=== PATIENT | female | born 1955 | race African-American/Black ===

== ENCOUNTER 2017-11-10 13:40 | Outpatient (CLI) | payer BC | END 2017-11-10 13:41 | disposition home or self-care (01) | LOC: BICRAD 13:40 | PROVIDERS: ATTEND Family Medicine | DX: M79.641 Pain in right hand (principal); M79.642 Pain in left hand; M19.042 Primary osteoarthritis, left hand; M19.041 Primary osteoarthritis, right hand ==

== ENCOUNTER 2018-05-29 12:28 | Emergency (ER) | payer BC | END 2018-05-29 13:30 | disposition home or self-care (01) | LOC: ERS 12:28 | DX: T45.1X5A Adverse effect of antineoplastic and immunosuppressive drugs, initial encounter (principal); R21 Rash and other nonspecific skin eruption; E11.9 Type 2 diabetes mellitus without complications; I10 Essential (primary) hypertension; K21.9 Gastro-esophageal reflux disease without esophagitis; Z79.899 Other long term (current) drug therapy; Z79.4 Long term (current) use of insulin | CPT/HCPCS: 99282 ==

== ENCOUNTER 2019-01-09 16:05 | Observation (INO) | payer BC ==
[2019-01-09 16:45] LABS: #Basophils 0.1 thou/uL (0.0-0.2); #Eosinphils 0.1 thou/uL (0.0-0.7); #Lymphocytes 1.2 thou/uL (1.20-3.40); #Monocytes 0.9 thou/uL (0.11-0.59); #Neutrophils 6.8 thou/uL (1.40-6.50); %Basophils 0.6 % (0.0-1.0); %Eosinophils 1.4 % (0.0-10.0); %Monocytes 9.7 % (0.0-10.0); %Neutrophils 75.3 % (42.0-75.0); Hemoglobin 9.9 g/dL (12.0-16.0); Mean Corpuscular HGB CONC 31.1 g/dL (32.0-36.0); Mean Corpuscular Hemoglobin 22.8 pg (27.0-31.0); Mean Corpuscular Volume 73.2 fL (78.0-98.0); Mean Platelet Volume 8.7 fL (7.4-10.4); Platelet Count 276 thou/uL (130-400); RBC Distribution Width 14.1 % (11.5-14.5); Red Blood Cell (RBC) Count 4.32 mill/uL (4.20-5.40)
--- NOTE | 2019-01-09 16:49 | RAD ---
PORTABLE CHEST ONE VIEW: 01/09/19 at 4:36 p.m. HISTORY: Hypoglycemia, dizziness. FINDINGS: Comparison made with exam of 03/24/17. The heart size is normal. The lungs are well expanded without focal areas of consolidation, pneumotho races or pleural effusions. IMPRESSION: No radiographic evidence of acute cardiopulmonary process. POS: [facility]
[2019-01-09 17:02] LABS: ALT (SGPT) 7 U/L (8-55); AST (SGOT) 15 U/L (5-34); Albumin 3.6 g/dL (3.4-4.8); Alkaline Phosphatase 51 U/L (40-150); Anion Gap 13 mmol/L (10-20); BUN (Urea Nitrogen) 22 mg/dL (9.8-20.1); Bilirubin, Total 0.2 mg/dL (0.2-1.2); Calc. Creatinine Clearance 0 mL/min (70-130); Calcium 9.9 mg/dL (7.8-10.44); Carbon Dioxide 28 mmol/L (23-31); Chloride 106 mmol/L (98-107); Estimated GFR-MDRD 44; Globulin 4.2 g/dL (2.4-3.5); Potassium 4.2 mmol/L (3.5-5.1); Protein, Total 7.8 g/dL (6.0-8.3); Sodium 143 mmol/L (136-145)
[2019-01-09 17:04] LABS: Glucose 44 mg/dL (80-115)
[2019-01-09] MEDS ORDERED: Aspirin Chewable 81 MG TAB ONE (19:16)
[2019-01-09] MEDS ORDERED: Nitroglycerin 2% Ointment 1 INCH/1 GM Packet ONE (19:16)
[2019-01-09] MEDS ORDERED: Labetalol HCl 100 MG/20 ML VIAL ONE (19:16)
[2019-01-09 20:37] LABS: Bilirubin Negative (Negative); Blood, Urine Trace (Negative); Clarity CLEAR (Clear); Glucose, Urine (Dipstick) 100 mg/dL (Negative); Leukocyte Negative (Negative); Nitrite Negative (Negative); Protein, Urine (Dipstick) > or equal to 300 mg/dL (Neg-Trace); Specific Gravity, Urine 1.025 (1.002-1.036); Urobilinogen 0.2 mg/dL (0.2-1.0); pH, Urine 5.5 (5.0-9.0)
[2019-01-09 20:38] LABS: Bacteria/HPF None Seen HPF (None Seen); Pathc Cast-AUWi Flag 1.76 (0-2.49); RBC/HPF 0-3 HPF (0-3)
[2019-01-09 20:39] LABS: Hyaline Casts/LPF 4-6 HYALINE CAST LPF (0-3 Hyaline)
[2019-01-09 21:46] LABS: Troponin I 0.018 ng/mL (< 0.028)
[2019-01-09] MEDS ORDERED: Ondansetron ODT 4 MG TAB PO PRN (23:09)
[2019-01-09] MEDS ORDERED: Ondansetron PF 4 MG/2 ML Vial IVP PRN (23:09)
[2019-01-09] MEDS ORDERED: Acetaminophen 325 MG TAB PO PRN (23:09)
[2019-01-09] MEDS ORDERED: Acetaminophen 500 MG TAB ONE (23:35)
[2019-01-10 00:31] LABS: Troponin I 0.019 ng/mL (< 0.028)
[2019-01-10] MEDS ORDERED: tiZANidine HCl 4 MG TAB PO PRN (05:02)
[2019-01-10] MEDS ORDERED: Dextrose 5% in Water 1,000 ML IV PRN (05:04)
[2019-01-10] MEDS ORDERED: Dextrose 50% Abboject 50 ML SYRINGE SLOW IVP PRN (05:04)
[2019-01-10] MEDS ORDERED: HumaLOG 300 UNITS/3 ML VIAL SC PRN ×2 (05:04→17:16)
[2019-01-10 05:32] LABS: #Basophils 0.1 thou/uL (0.0-0.2); #Eosinphils 0.1 thou/uL (0.0-0.7); #Monocytes 0.8 thou/uL (0.11-0.59); %Basophils 0.9 % (0.0-1.0); %Eosinophils 1.4 % (0.0-10.0); %Lymphocytes 29.2 % (21.0-51.0); %Monocytes 11.7 % (0.0-10.0); %Neutrophils 56.8 % (42.0-75.0); Hemoglobin 8.6 g/dL (12.0-16.0); Mean Corpuscular HGB CONC 31.7 g/dL (32.0-36.0); Mean Corpuscular Hemoglobin 23.2 pg (27.0-31.0); Mean Corpuscular Volume 73.2 fL (78.0-98.0); Platelet Count 229 thou/uL (130-400); RBC Distribution Width 14.2 % (11.5-14.5)
[2019-01-10 05:58] LABS: Anion Gap 14 mmol/L (10-20); BUN (Urea Nitrogen) 20 mg/dL (9.8-20.1); Calc. Creatinine Clearance 49 mL/min (70-130); Carbon Dioxide 24 mmol/L (23-31); Chloride 105 mmol/L (98-107); Estimated GFR-MDRD 49; Glucose 147 mg/dL (80-115); Potassium 3.6 mmol/L (3.5-5.1); Sodium 139 mmol/L (136-145)
--- NOTE | 2019-01-10 07:06 | HP ---
PRIMARY CARE DOCTOR: Not reported. CODE STATUS: Full code. TIME OF EVALUATION: 9 p.m. CHIEF COMPLAINT: Hypoglycemia. HISTORY OF PRESENT ILLNESS: This is a 63-year-old female patient with past medical history of diabetes on insulin, hypertension, GERD, came to the hospital after having an episode of hyponatremia. The patient reported that she became diaphoretic, associated with nausea with no clear triggers, no alleviating factors. She checked the blood sugar, it was around 40. She reported that she had been taking her insulin and has been eating properly. Also associated with chest pain, reported as heaviness 5/10, symptoms were moderate. REVIEW OF SYSTEMS: CONSTITUTIONAL: No fever, chills or generalized weakness. Respiratory: No cough, sputum production, shortness of breath. CARDIOVASCULAR: Chest pain, no palpitation. GASTROINTESTINAL: The patient has nausea. No vomiting, diarrhea, or abdominal pain. FITNESS ATTENDANT: No dizziness, headache or feeling lightheaded. GENITOURINARY: No burning on urination. EXTREMITIES: No leg swelling. All other systems were reviewed and negative except for the findings mentioned above. PAST MEDICAL HISTORY: Positive for the findings mentioned in the HPI. PAST SURGICAL HISTORY: Positive for hysterectomy, cataract removal on the left. PSYCHIATRIC HISTORY: No previous psych history. FAMILY HISTORY: Reviewed and non contributory for current presentation. SOCIAL HISTORY: The patient drinks socially every week. No drug use. No smoking history. KNOWN ALLERGIES: Sulfa and codeine. REPORTED MEDICATIONS: 1. Meloxicam. 2. Metformin. 3. Amlodipine. 4. Metoprolol. 5. Humalog. 6. Atorvastatin. 7. Lisinopril. 8. Omeprazole. 9. Leflunomide. 10. Tizanidine. PHYSICAL EXAMINATION: VITAL SIGNS: On presentation, blood pressure 170/80, heart rate 84, respiratory rate was 16, temperature 98.5, pain 0/10, oxygen saturation was 96%. GENERAL APPEARANCE: The patient is alert, oriented, not in acute distress. HEENT: Eyes normal conjunctivae. ENT: Moist oral mucosa. Anicteric. NECK: No JVD. RESPIRATORY: Bilateral air entry. No rales. No wheezes. Symmetric expansion. CARDIOVASCULAR: Normal rate, regular rhythm. No murmurs. No gallop. Bilateral leg edema. ABDOMEN: Soft, normal bowel sounds. MUSCULOSKELETAL: Baseline range of motion and strength. No tenderness. SKIN: Warm, intact, no pallor, no rash. No redness. Peripheral pulses are present. Capillary refill seems to be intact. NEUROLOGIC: No evidence of any new focal weakness. Baseline speech. Cranial nerves seems to be intact. PSYCHIATRIC: The patient has good mood. No anxiety. Optimal judgment. IMAGING: EKG was reviewed, the patient has normal sinus rhythm, nonspecific Q- wave abnormalities, ventricular rate 84, AL 150, QRS 66, QT corrected 387. Chest x- ray, no radiographic areas of acute cardiopulmonary process. LABORATORY DATA: Reviewed, white count 9.0, hemoglobin 9.9. In previous admission, the hemoglobin was 12.5, it was in 2017, platelet count 276. Sodium 143, potassium 4.2 chloride 106, carbon dioxide 28, anion gap 13, BUN 22, creatinine 1.44, GFR 44. Previous creatinine from 2018 was 1.64, it is about the same level. Glucose 145 , 102, 240, 205, calcium 9.9, bilirubin 0.2, AST 15, ALT 7, alkaline phosphatase is 51. Troponin was negative x3. Urine was positive for proteinuria and glucosuria. ASSESSMENT AND PLAN: The patient will be placed in the hospital for following medical problems: 1. Chest pain, rule out acute coronary syndrome. The patient has some chest tightness associated with the hypoglycemia, we will trend troponins. If everything is negative, the patient would benefit from a stress test in the morning. 2. Hypoglycemia, unclear etiology, we will reconcile home medications, place the patient on a sliding scale. One of the reason this might happening is because patient might need low dose of anti-hypoglycemic agents given. 3. Kidney failure. Her home medication will need to be reconciled prior to discharge. 4. Hyperlipidemia. Low-cholesterol diet is advised, reconcile home medications. 5. Uncontrolled hypertension, systolic blood pressure 170. We will reconcile home medications and adjust as needed. 6. History of gastroesophageal reflux disease, reconcile home medications. Adjust treatment as needed. 7. Deep venous thrombosis prophylaxis. Job ID: [id number] [facility]
[2019-01-10] MEDS ORDERED: cloNIDine 0.1 MG TAB PO PRN (07:57)
[2019-01-10] MEDS ORDERED: hydrALAZINE 20 MG/ML VIAL SLOW IVP PRN (07:57)
[2019-01-10] MEDS: Atorvastatin Calcium 40 MG TAB PO SCH (08:30)
[2019-01-10] MEDS: Enoxaparin Sodium 30 MG/0.3 ML SYRINGE SC SCH (08:30)
[2019-01-10] MEDS: Amlodipine 10 MG TAB PO SCH (08:31)
[2019-01-10] MEDS: Aspirin 325 mg Enteric Coated Tablet PO SCH (08:31)
[2019-01-10] MEDS: Leflunomide 10 mg Tablet PO SCH (08:32)
[2019-01-10] MEDS: Metoprolol Tartrate 50 MG TAB PO SCH ×3 (08:33→21:18)
[2019-01-10] MEDS: Sodium Chloride 0.9% 1,000 ML IV SCH (08:40)
[2019-01-10] MEDS ORDERED: [UNRECOGNIZED DRUG - MIXTURE] PO SCH (09:00)
[2019-01-10] MEDS ORDERED: Meloxicam 15 MG TAB PO SCH (09:00)
[2019-01-10] MEDS ORDERED: Metoprolol Tartrate 50 MG TAB PO SCH (09:00)
[2019-01-10] MEDS ORDERED: ISOVUE-370 76%-LOCM 1 ML ONE (13:17)
--- NOTE | 2019-01-10 15:13 | PRG ---
DATE OF SERVICE: 01/10/2019 SUBJECTIVE: Ms. Wendy Roberts is a 63-year-old female with past medical history significant for type 2 diabetes mellitus, hypertension, and chronic kidney disease, who presented to the hospital with complaints of chest discomfort and shortness of breath. The patient has remained short of breath this morning. She was unable to complete the full portion of her Cardiolite stress test secondary to shortness of breath. She describes her chest discomfort as a "full" feeling. She has no nausea at this time. She has no lightheadedness or palpitations. OBJECTIVE: VITAL SIGNS: Blood pressure 180/84, pulse 93, O2 saturation is 95% on room air, temperature is 98.2. GENERAL: The patient is a moderately obese female, sitting up in bed, in no acute distress. HEENT: Head is atraumatic and normocephalic. Mucous membranes are moist. Extraocular movements intact. NECK: Supple. No lymphadenopathy. No JVD. Trachea is midline. CV: S1 and S2. Regular rate and rhythm. No appreciable murmurs, rubs, or gallops. LUNGS: Regular respiratory rate and pattern. Clear to auscultation bilaterally. ABDOMEN: Soft. Positive bowel sounds. Nontender. EXTREMITIES: +2 DP pulses bilaterally. No edema. SKIN: Warm and dry. No obvious rashes. NEUROLOGIC: Cranial nerves 2 through 12 are intact. The patient is nonfocal. LABORATORY DATA: Hemoglobin 8.6, hematocrit 27, and platelet is 229. D-dimer 0.88. Sodium 139, potassium 3.6, chloride 105, and creatinine 1.31, which is down from 1.44. BNP 47.2. ASSESSMENT: 1. Chest discomfort and shortness of breath, which certainly could be an anginal equivalent, although given recently drawn elevated D-dimer, pulmonary embolism is also in the differential. 2. Indeterminate troponin. 3. Type 2 diabetes mellitus. 4. Uncontrolled hypertension. 5. Anemia, hemoglobin 8.9, looking back, her hemoglobin was 12.7 in 2018, fecal occult done today was negative, her anemia may be secondary to chronic kidney disease. 6. Acute on chronic renal insufficiency, improving. 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 PLAN: Given the patient's elevated D-dimer, we will also have to pursue ruling out a pulmonary embolism, CTA is now pending. She will have the 2nd set of stress images tomorrow. At this point, her workup is ongoing, and further recommendations will be based on hospital course and findings of pending the testings. Regarding hypertension, will add scheduled hydralazine along with her B skyler and CCB. Job ID: [id number] [facility]
[2019-01-10] MEDS: hydrALAZINE 25 MG TAB PO SCH ×2 (16:19→21:18)
--- NOTE | 2019-01-10 17:14 | CT ---
CTA CHEST: Technique: Multiple axial tomograms were obtained through chest following angio protocol with multipl marcelo reconstructions and 3D post processing. Indications: Shortness of breath, elevated D-Dimer. FINDINGS: The pulmonary arteries show adequate opacification. No evidence of pulmonary embolus identified. The lung boswell are clear. No infiltrate. Thoracic aorta is unremarkable. No evidence of dissection. Mediastinum unremarkable. Images through the upper abdomen unremarkable. IMPRESSION: 1. No evidence of pulmonary embolus. 2. No acute lung process. POS: [facility]
[2019-01-11] MEDS: hydrALAZINE 25 MG TAB PO SCH (05:05)
[2019-01-11] MEDS: Amlodipine 10 MG TAB PO SCH (05:05)
[2019-01-11] MEDS: Sodium Chloride 0.9% 1,000 ML IV SCH (05:08)
[2019-01-11 05:35] LABS: Anion Gap 12 mmol/L (10-20); BUN (Urea Nitrogen) 16 mg/dL (9.8-20.1); Calc. Creatinine Clearance 49 mL/min (70-130); Calcium 9.2 mg/dL (7.8-10.44); Carbon Dioxide 27 mmol/L (23-31); Chloride 103 mmol/L (98-107); Estimated GFR-MDRD 49; Glucose 188 mg/dL (80-115); Potassium 3.7 mmol/L (3.5-5.1); Sodium 138 mmol/L (136-145)
[2019-01-11 05:59] LABS: #Basophils 0.1 thou/uL (0.0-0.2); #Eosinphils 0.1 thou/uL (0.0-0.7); #Lymphocytes 1.6 thou/uL (1.20-3.40); #Monocytes 0.7 thou/uL (0.11-0.59); #Neutrophils 3.6 thou/uL (1.40-6.50); %Basophils 1.1 % (0.0-1.0); %Eosinophils 1.9 % (0.0-10.0); %Lymphocytes 26.8 % (21.0-51.0); %Monocytes 11.7 % (0.0-10.0); %Neutrophils 58.6 % (42.0-75.0); Hemoglobin 9.1 g/dL (12.0-16.0); MDiff Complete? YES; Mean Corpuscular HGB CONC 31.8 g/dL (32.0-36.0); Mean Corpuscular Hemoglobin 23.2 pg (27.0-31.0); Ovalocytes SLIGHT = 2-5 cells (100X) (0-1/hpf); Platelet Count 239 thou/uL (130-400); RBC Distribution Width 14.1 % (11.5-14.5); Red Blood Cell (RBC) Count 3.92 mill/uL (4.20-5.40); White Blood Cell (WBC) Count 6.1 thou/uL (4.8-10.8)
[2019-01-11] MEDS ORDERED: Regadenoson 0.4 MG/5 ML SYRINGE ONE (09:48)
--- NOTE | 2019-01-11 11:13 | NM ---
EXAM: CARDIAC SPECT HISTORY: Chest pain TECHNIQUE: A myocardial perfusion scan was performed using the single isotope 1 day protocol with shari hnetium 99m sestamibi. [10 mCi] was injected intravenously for the rest exam followed by 32 mCifor the stress study. Pharmacologic stress with Lexiscan was monitored and interpreted by Stacy Villagomez, nurse practitioner FINDINGS: Homogeneous tracer distribution is seen in the myocardial segments on stress and rest image s without fixed or reversible defects. Gated SPECT LVEF: 80% Wall motion exam: Normal IMPRESSION: Normal myocardial perfusion scan
[2019-01-11] MEDS: Leflunomide 10 mg Tablet PO SCH (11:34)
[2019-01-11] MEDS: Aspirin 325 mg Enteric Coated Tablet PO SCH (11:34)
[2019-01-11] MEDS: Atorvastatin Calcium 40 MG TAB PO SCH (11:34)
[2019-01-11] MEDS: Enoxaparin Sodium 30 MG/0.3 ML SYRINGE SC SCH (11:34)
[2019-01-11] MEDS: Metoprolol Tartrate 50 MG TAB PO SCH (11:35)
[2019-01-11 12:18] LABS: Iron 43 ug/dL (50-170); Iron Binding Capacity, Total 286 mcg/dL (265-497)
[2019-01-11 12:27] VITALS: TEMP 98.1
[2019-01-11 12:53] LABS: Folate (Folic Acid) 16.7 ng/mL (7.0-31.4)
[2019-01-11 13:17] VITALS: BP 167/75
== END 2019-01-11 14:24 | disposition home or self-care (01) ==
LOC: ERS 16:05 → 2SW 21:58
PROVIDERS: ADMIT Hospitalist; ATTEND Hospitalist
DX: E11.649 Type 2 diabetes mellitus with hypoglycemia without coma (principal); R07.89 Other chest pain; R06.02 Shortness of breath; K21.9 Gastro-esophageal reflux disease without esophagitis; E87.1 Hypo-osmolality and hyponatremia; E78.5 Hyperlipidemia, unspecified; I12.9 Hypertensive chronic kidney disease with stage 1 through stage 4 chronic kidney disease, or unspecified chronic kidney disease; E11.22 Type 2 diabetes mellitus with diabetic chronic kidney disease; N18.9 Chronic kidney disease, unspecified; N17.9 Acute kidney failure, unspecified; D63.1 Anemia in chronic kidney disease; Z79.1 Long term (current) use of non-steroidal anti-inflammatories (NSAID); Z79.4 Long term (current) use of insulin; Z79.899 Other long term (current) drug therapy; Z88.2 Allergy status to sulfonamides; Z88.5 Allergy status to narcotic agent
CPT/HCPCS: 36415; 36416; 71045; 71275; 78452; 80048; 80053; 81003; 81015; 82274; 82607; 82746; 83540; 83550; 83880; 84484; 85025; 85379; 93005; 93017; 93306; 96361; 96372; 96374; 96375; A9500; G0378; J0360; J1650; J2785; Q9966

== ENCOUNTER 2019-02-24 07:12 | Outpatient (CLI) | payer BC ==
--- NOTE | 2019-02-24 08:03 | ULT ---
ULTRASOUND RETROPERITONEUM COMPLETE: (RENAL) DATE: 02/24/19 HISTORY: Chronic kidney disease Stage III, N18.3, in 63-year-old female. FINDINGS: The right kidney measures 10.5 x 5 x 5 cm. The left kidney measures 10.5 x 6 x 6 cm. Both kidneys h ave normal cortical thickness and normal cortical echogenicity. There is no hydronephrosis. Cursory images of the urinary bladder demonstrate no gross abnormality. IMPRESSION: Normal. jn [] POS: [facility]
== END 2019-02-24 07:13 | disposition home or self-care (01) ==
LOC: BICULT 07:12
PROVIDERS: ATTEND Internal Medicine Nephrology
DX: N18.3 Chronic kidney disease, stage 3 (moderate) (principal)
CPT/HCPCS: 76770

== ENCOUNTER 2019-06-14 11:24 | Emergency (ER) | payer BC ==
--- NOTE | 2019-06-14 12:01 | RAD ---
EXAM: Two views chest PROVIDED CLINICAL HISTORY: Chest pain COMPARISON: 01/09/2019 FINDINGS: Cardiac and mediastinal silhouette appears within normal limits. Lungs appear free of significant opa city. No pleural fluid or pneumothorax apparent. Bibasilar subsegmental atelectatic changes are seen. IMPRESSION: No evidence for an acute cardiopulmonary process.
[2019-06-14 12:18] LABS: #Lymphocytes 1.3 thou/uL (1.20-3.40); #Monocytes 1.2 thou/uL (0.11-0.59); %Basophils 0.4 % (0.0-1.0); %Eosinophils 0.3 % (0.0-10.0); %Lymphocytes 12.6 % (21.0-51.0); %Monocytes 11.5 % (0.0-10.0); %Neutrophils 75.2 % (42.0-75.0); Hemoglobin 9.4 g/dL (12.0-16.0); Mean Corpuscular HGB CONC 33.1 g/dL (32.0-36.0); Mean Corpuscular Hemoglobin 23.4 pg (27.0-31.0); Mean Corpuscular Volume 70.7 fL (78.0-98.0); Mean Platelet Volume 7.9 fL (7.4-10.4); Platelet Count 307 thou/uL (130-400); RBC Distribution Width 14.1 % (11.5-14.5); Red Blood Cell (RBC) Count 4.01 mill/uL (4.20-5.40); White Blood Cell (WBC) Count 10.7 thou/uL (4.8-10.8)
[2019-06-14 12:42] LABS: Hypochromia SLIGHT = 6-15 cells (100X) (0-5/hpf); MDiff Complete? YES; Microcytosis MODERATE=15-30 cells (100X) (0-5/hpf); Ovalocytes SLIGHT = 2-5 cells (100X) (0-1/hpf); Platelet Morphology Comment Appears Adequate; Polychromasia SLIGHT = 2-3 cells (100X) (0-2/hpf)
[2019-06-14 12:48] LABS: ALT (SGPT) 9 U/L (8-55); AST (SGOT) 14 U/L (5-34); Albumin 3.6 g/dL (3.4-4.8); Alkaline Phosphatase 70 U/L (40-110); Anion Gap 17 mmol/L (10-20); BUN (Urea Nitrogen) 20 mg/dL (9.8-20.1); Bilirubin, Total 0.3 mg/dL (0.2-1.2); Calc. Creatinine Clearance 0 mL/min (70-130); Calcium 7.7 mg/dL (7.8-10.44); Carbon Dioxide 22 mmol/L (23-31); Chloride 102 mmol/L (98-107); Estimated GFR-MDRD 29; Globulin 3.9 g/dL (2.4-3.5); Glucose 186 mg/dL (80-115); Potassium 3.8 mmol/L (3.5-5.1); Protein, Total 7.5 g/dL (6.0-8.3); Sodium 137 mmol/L (136-145)
[2019-06-14] MEDS ORDERED: Ondansetron PF 4 MG/2 ML Vial ONE ×2 (14:00→14:01)
[2019-06-14] MEDS ORDERED: Morphine 4 MG/ML VIAL ONE (14:01)
[2019-06-14 15:23] LABS: Bacteria/HPF None Seen HPF (None Seen); Bilirubin Negative (Negative); Blood, Urine Trace (Negative); Clarity Clear (Clear); Glucose, Urine (Dipstick) 500 mg/dL (Negative); Leukocyte Negative Leu/uL (Negative); Nitrite Negative (Negative); Protein, Urine (Dipstick) Greater than 600 mg/dL (Neg-Trace); Squamous Epithelial 0-3 HPF (0-3); Urobilinogen Normal mg/dL (Less than 2); WBC/HPF 0-3 HPF (0-3)
[2019-06-14] MEDS ORDERED: Diazepam 5 MG TAB ONE (15:57)
== END 2019-06-14 17:03 | disposition home or self-care (01) ==
LOC: ERS 11:24
DX: M54.6 Pain in thoracic spine (principal); E11.9 Type 2 diabetes mellitus without complications; I10 Essential (primary) hypertension; K21.9 Gastro-esophageal reflux disease without esophagitis; Z79.899 Other long term (current) drug therapy; Z79.4 Long term (current) use of insulin
CPT/HCPCS: 36415; 71046; 80053; 81003; 81015; 82728; 83540; 83550; 84484; 85025; 93005; 96374; 96375; J2270; J2405; J7620

== ENCOUNTER 2019-07-05 19:29 | Inpatient (IN) | payer BC ==
--- NOTE | 2019-07-05 20:17 | CT ---
CT Stone Protocol 07/05/2019 7:41 PM HISTORY: Right flank pain and hematuria. COMPARISON: None. Technique: Multiple contiguous axial CT images are obtained through the abdomen and pelvis without IV contrast. Coronal reformats are provided. FINDINGS: This examination is limited for the evaluation of solid organs and vascular structures due to the lac k of intravenous contrast. Lower Chest: Bibasilar atelectasis is present. Abdomen: Liver: Grossly normal nonenhanced CT appearance. Gallbladder: Within normal limits for CT imaging. Pancreas: Grossly normal nonenhanced CT appearance Spleen: Grossly normal nonenhanced CT appearance. Adrenals: Grossly normal nonenhanced CT appearance. Kidneys: No renal calculi are visualized, and there is no evidence of hydronephrosis. Ureters: No ureteral calculus is seen.. Pelvis: Urinary bladder: Mostly decompressed but otherwise grossly within normal limits. Reproductive Organs: Evidence of hysterectomy. Lymph Nodes: No enlarged lymph nodes. Bowel: Colonic diverticulosis is present. Loops of small bowel are normal in caliber. Appendix: A small appendicolith is seen at the origin of the appendix, but the appendix is normal in caliber. Peritoneum: No free fluid, free air, or fluid collection. Retroperitoneum: within normal limits. Vessels: Vascular calcifications are seen in the abdominal aorta and involving the iliac arteries as well as visualized femoral arteries.. Abdominal Wall: Small fat-containing umbilical hernia is noted. Bones: Bilateral pars defects are present at L5 with grade 1 anterolisthesis of L5 on S1. Degenerativ e changes are seen at the lumbosacral junction. IMPRESSION: 1. No renal or ureteral calculi are seen bilaterally. 2. Spondylolisthesis lumbosacral junction. 3. Colonic diverticulosis. 4. Hysterectomy. 5. Small appendicolith, but there is no CT evidence of appendicitis.
[2019-07-05 20:20] LABS: #Basophils 0.1 thou/uL (0.0-0.2); #Eosinphils 0.1 thou/uL (0.0-0.7); #Lymphocytes 1.6 thou/uL (1.20-3.40); #Monocytes 1.1 thou/uL (0.11-0.59); #Neutrophils 7.9 thou/uL (1.40-6.50); %Basophils 0.6 % (0.0-1.0); %Eosinophils 1.1 % (0.0-10.0); %Lymphocytes 15.1 % (21.0-51.0); %Monocytes 10.1 % (0.0-10.0); %Neutrophils 73.1 % (42.0-75.0); Hemoglobin 7.8 g/dL (12.0-16.0); Mean Corpuscular HGB CONC 32.1 g/dL (32.0-36.0); Mean Corpuscular Hemoglobin 23.2 pg (27.0-31.0); Mean Corpuscular Volume 72.2 fL (78.0-98.0); Mean Platelet Volume 7.8 fL (7.4-10.4); Platelet Count 305 thou/uL (130-400); RBC Distribution Width 14.1 % (11.5-14.5); Red Blood Cell (RBC) Count 3.36 mill/uL (4.20-5.40); White Blood Cell (WBC) Count 10.8 thou/uL (4.8-10.8)
[2019-07-05 20:50] LABS: ALT (SGPT) 12 U/L (8-55); AST (SGOT) 18 U/L (5-34); Albumin 2.9 g/dL (3.4-4.8); Alkaline Phosphatase 74 U/L (40-110); Anion Gap 15 mmol/L (10-20); BUN (Urea Nitrogen) 27 mg/dL (9.8-20.1); Bilirubin, Total 0.2 mg/dL (0.2-1.2); Calc. Creatinine Clearance 0 mL/min (70-130); Calcium 7.7 mg/dL (7.8-10.44); Carbon Dioxide 26 mmol/L (23-31); Chloride 101 mmol/L (98-107); Estimated GFR-MDRD 18; Glucose 286 mg/dL (80-115); Potassium 3.9 mmol/L (3.5-5.1); Protein, Total 6.9 g/dL (6.0-8.3); Sodium 138 mmol/L (136-145)
[2019-07-05] MEDS ORDERED: Sodium Chloride 0.9% 1,000 ML IV SCH (23:45)
[2019-07-05 23:57] LABS: Bacteria/HPF None Seen HPF (None Seen); Bilirubin Negative (Negative); Blood, Urine 1+ (Negative); Clarity Clear (Clear); Glucose, Urine (Dipstick) Greater than 1000 mg/dL (Negative); Leukocyte Negative Leu/uL (Negative); Nitrite Negative (Negative); Protein, Urine (Dipstick) 300 mg/dL (Neg-Trace); RBC/HPF 0-3 HPF (0-3); Squamous Epithelial 0-3 HPF (0-3); Urobilinogen Normal mg/dL (Less than 2); WBC/HPF 0-3 HPF (0-3)
[2019-07-05 23:58] VITALS: BMI 29.7
[2019-07-06] MEDS: Acetaminophen/Codeine 30-300mg Tablet PO PRN (05:23)
[2019-07-06] MEDS ORDERED: Dextrose 50% Abboject 50 ML SYRINGE SLOW IVP PRN (05:50)
[2019-07-06] MEDS ORDERED: HumaLOG 300 UNITS/3 ML VIAL SC PRN (05:50)
[2019-07-06] MEDS ORDERED: Dextrose 5% in Water 1,000 ML IV PRN (05:50)
[2019-07-06] MEDS: HumaLOG 300 UNITS/3 ML VIAL SC PRN ×3 (06:01→18:23)
[2019-07-06 06:07] LABS: #Eosinphils 0.2 thou/uL (0.0-0.7); #Lymphocytes 1.7 thou/uL (1.20-3.40); #Monocytes 1.1 thou/uL (0.11-0.59); #Neutrophils 6.6 thou/uL (1.40-6.50); %Basophils 0.5 % (0.0-1.0); %Eosinophils 1.6 % (0.0-10.0); %Lymphocytes 17.4 % (21.0-51.0); %Monocytes 11.6 % (0.0-10.0); Hemoglobin 9.6 g/dL (12.0-16.0); Mean Corpuscular HGB CONC 30.5 g/dL (32.0-36.0); Mean Corpuscular Hemoglobin 23.2 pg (27.0-31.0); Mean Corpuscular Volume 76.3 fL (78.0-98.0); Mean Platelet Volume 8.1 fL (7.4-10.4); Platelet Count 331 thou/uL (130-400); RBC Distribution Width 16.7 % (11.5-14.5); Red Blood Cell (RBC) Count 4.12 mill/uL (4.20-5.40); White Blood Cell (WBC) Count 9.6 thou/uL (4.8-10.8)
[2019-07-06 06:26] LABS: Anion Gap 17 mmol/L (10-20); BUN (Urea Nitrogen) 22 mg/dL (9.8-20.1); Calc. Creatinine Clearance 24 mL/min (70-130); Calcium 7.6 mg/dL (7.8-10.44); Carbon Dioxide 23 mmol/L (23-31); Chloride 103 mmol/L (98-107); Estimated GFR-MDRD 22; Glucose 280 mg/dL (80-115); Potassium 3.7 mmol/L (3.5-5.1); Sodium 139 mmol/L (136-145)
[2019-07-06 08:34] LABS: Phosphorus 2.7 mg/dL (2.3-4.7)
--- NOTE | 2019-07-06 10:58 | CON ---
DATE OF CONSULTATION: REASON FOR CONSULT: Acute renal failure. HISTORY OF PRESENT ILLNESS: This is a very pleasant presented to the hospital for flank pain. The patient was noted to have a creatinine of on hydration. The patient's last baseline creatinine was anywhere from 1.4 to 1.8. The patient at this time denies any nausea, vomiting, or chest pain. The patient also had a CAT scan of the abdomen and pelvis done in the emergency room, which did not show any hydronephrosis. PAST MEDICAL HISTORY: Hypertension, diabetes mellitus, GERD, anemia, transfusion, hysterectomy, and cataract removal. PAST SURGICAL HISTORY: Significant for cataract surgery. SOCIAL HISTORY: No alcohol or drug use. FAMILY HISTORY: Negative for ESRD. ALLERGIES: REVIEWED. HOME MEDICATIONS: List reviewed. HOSPITAL MEDICATIONS: List reviewed. REVIEW OF SYSTEMS: Fifteen-point review of systems was performed, negative, except for positives noted above. GENERAL: HEAD: NECK: No swelling or lumps. NOSE: No epistaxis or discharge. EYES: No diplopia or pain. 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 NEUROPSYCHIATIC SYSTEMS: No suicidal ideation. No ideation. SKIN: Denies any rash or ulcer. CONSTITUTIONAL: No fever or chills. PHYSICAL EXAMINATION: CONSTITUTIONAL: The patient is awake and alert. VITAL SIGNS: Pulse 77, breathing 16, and blood pressure 152/75. GENERAL APPEARANCE AND MENTAL STATUS: Fair. HEAD/NECK: Normocephalic. Atraumatic. EYES: EOMI. No deformity. EARS: Clear. No ulcers. NOSE: Intact. No lesions. MOUTH: Clear. No discharge. THROAT: Clear. No exudate. LUNGS: Clear. No crackles. CARDIAC: S1, S2. No rub. ABDOMEN: Benign. Bowel sounds positive. GENITALIA/RECTUM: Hodges absent. BACK/EXTREMITIES: Edema 0+. NEUROLOGICAL: Alert and motor intact. SKIN: LYMPHATICS: LABORATORY DATA: Labs show creatinine 2.6. ASSESSMENT AND PLAN: Acute kidney injury due to acute tubular necrosis and decreased effective arterial blood volume. No indication for dialysis. Hypertension, stable. Anemia, stable. Proteinuria, would recommend getting a SPEP and UPEP. We would also check hemoglobin. No indication for dialysis at this time. Continue gentle hydration. Job ID: [id number]
[2019-07-06] MEDS ORDERED: Acetaminophen 325 MG TAB PO PRN (11:37)
[2019-07-06] MEDS ORDERED: Senokot S 8.6-50 MG TAB PO PRN (11:37)
[2019-07-06] MEDS: Sodium Chloride 0.9% 1,000 ML IV SCH (12:40)
--- NOTE | 2019-07-06 13:18 | HP ---
PRIMARY CARE PHYSICIAN: Dr. Rivera. CHIEF COMPLAINT: Flank pain. HISTORY OF PRESENT ILLNESS: Ms. Wendy Roberts is a 64-year-old female, who reported to the emergency room on 07/05/2019 for evaluation of flank pain and hematuria. The patient reports that she went to see her PCP, Dr. Rivera at [facility], had a urinalysis done and shown to have some hematuria and some urine hesitancy. Dr. Rivera scheduled an MRI and told patient if the pain got worse or she continued to have problems urinating, to be seen in the emergency room. So, she came to the emergency room last night for evaluation. Past medical history pertinent for diabetes, hypertension, GERD, anemia with iron transfusions, last 1 in May. Abdomen and pelvis CT was performed, showed no renal or urethral calculi. Spondylolisthesis of the lumbosacral junction, colonic diverticulosis, hysterectomy, a small appendicolith, but no evidence of appendicitis. Hemoglobin was 7.8, hematocrit 24.3, and platelet count 305. Her creatinine was 3.16, BUN 27, estimated GFR 18, calcium is also low at 7.7. ER doctor ordered type and screen and transfused 1 unit of packed red blood cells. This morning, hemoglobin is back up to 9.6, hematocrit 31.4, platelets at 331. The patient reports that she feels better. She was admitted for observation for symptomatic anemia, acute on chronic kidney disease. Dr. Ortiz was consulted from the ER. REVIEW OF SYSTEMS: The patient reports right-sided back pain that wraps around to the front. Reports urinary hesitancy. Denies fever or chills. Denies any trauma or injury. Reports some increased fatigue. All other systems reviewed and are negative unless mentioned in the HPI. PAST MEDICAL HISTORY: Diabetes type 2, hypertension, GERD, anemia requiring iron transfusions. PAST SURGICAL HISTORY: Hysterectomy and cataract removed on the left. PSYCHIATRIC HISTORY: None. SOCIAL HISTORY: Drinks alcohol socially. Denies any drug use. Has no smoking history. KNOWN ALLERGIES: Codeine and sulfa. CURRENT MEDICATIONS: 1. Tylenol with codeine 1 tablet q.12 hours as needed. 2. Norvasc 10 mg p.o. daily. 3. Lipitor 40 mg p.o. at bedtime. 4. Fluconazole 200 mg p.o. daily. 5. Apresoline 10 mg p.o. t.i.d. 6. Insulin lispro 25 units subcutaneous at bedtime also 40 units subcutaneous q.a.m. 7. Leflunomide 20 mg p.o. daily. 8. Losartan 25 mg p.o. daily. 9. Metformin 1000 mg p.o. b.i.d. 10. Lopressor 50 mg p.o. daily. 11. Prilosec 20 mg p.o. daily. 12. Zofran 4 mg p.o. q.8 hours as needed. 13. Zanaflex 4 mg p.o. q.8 hours as needed. PHYSICAL EXAMINATION: VITAL SIGNS: Temperature is 97.5, pulse is 77, respirations are 18, pO2 saturations are 98% on room air, and blood pressure 162/71. CONSTITUTIONAL: The patient appears nontoxic. She is alert and oriented to person, place, and time. HEENT: Head is atraumatic and normocephalic. Eyes, pupils are equally round and reactive to light. Conjunctiva is pale. ENT; mouth exam is normal. NECK: Normal range of motion. Trachea is midline. RESPIRATORY: Chest; breath sounds are clear. Chest movement is symmetrical. CARDIOVASCULAR: Regular heart rate and rhythm. Heart sounds are normal. ABDOMEN: Nontender to palpation. Bowel sounds are heard. BACK: Normal range of motion. No tenderness. EXTREMITIES: Upper extremities, motor strength is normal. Sensation is intact. Lower extremities, normal range of motion. Motor strength is normal. No edema is noted. NEURO: The patient is oriented to person, place, and time. Speech is normal. SKIN: Warm, dry, pale. PSYCHIATRIC: Has a normal affect. ASSESSMENT AND PLAN: 1. Symptomatic anemia. The patient's hemoglobin has improved to baseline at 9.6 this morning after 1 unit of packed red blood cells. We will order iron studies, ferritin, recheck hemoglobin in the morning. The patient does report that [facility]. 2. Acute on chronic renal disease, gentle hydration. Dr. Ortiz has been consulted. We will stop any nephrotoxic drugs for now. Recheck comprehensive metabolic panel in the a.m. 3. Diabetes mellitus. We will start home medication a.c. and at bedtime, Accu-Cheks, sliding scale as needed. We will restart her home insulin doses. 4. Hypertension, restart home medications. 5. Sciatica. The patient has Tylenol No. 3 and Zanaflex. We will restart these as needed. 6. Hyperlipidemia. We will restart Lipitor. 7. Gastrointestinal and deep venous thrombosis prophylaxis has been started. 8. Hospital course dependent on clinical findings. Job ID: [id number]
[2019-07-06] MEDS: hydrALAZINE 10 MG TAB PO SCH ×2 (16:39→20:47)
[2019-07-06] MEDS: HumuLIN 70/30 (300 UNITS/3 ML VIAL) SC SCH (20:47)
[2019-07-06] MEDS ORDERED: Prevnar 13-Val Conj/PF 0.5 ML SYRINGE IM ONE (21:00)
[2019-07-06] MEDS ORDERED: FLU VACC TS2019-20(65YR UP)/PF 180 MCG/0.5 ML SYRINGE IM ONE (21:00)
[2019-07-06] MEDS ORDERED: Famotidine 20 MG TAB PO SCH (21:00)
[2019-07-07] MEDS: Sodium Chloride 0.9% 1,000 ML IV SCH ×2 (03:37→14:43)
[2019-07-07 07:28] LABS: #Eosinphils 0.1 thou/uL (0.0-0.7); #Lymphocytes 1.2 thou/uL (1.20-3.40); #Monocytes 0.9 thou/uL (0.11-0.59); #Neutrophils 7.4 thou/uL (1.40-6.50); %Basophils 0.5 % (0.0-1.0); %Lymphocytes 12.2 % (21.0-51.0); %Neutrophils 77.3 % (42.0-75.0); Hemoglobin 9.1 g/dL (12.0-16.0); Mean Corpuscular HGB CONC 31.8 g/dL (32.0-36.0); Mean Corpuscular Hemoglobin 24.3 pg (27.0-31.0); Mean Corpuscular Volume 76.4 fL (78.0-98.0); Mean Platelet Volume 7.8 fL (7.4-10.4); Platelet Count 300 thou/uL (130-400); RBC Distribution Width 16.1 % (11.5-14.5); Red Blood Cell (RBC) Count 3.76 mill/uL (4.20-5.40); White Blood Cell (WBC) Count 9.5 thou/uL (4.8-10.8)
[2019-07-07 07:38] LABS: Iron 22 ug/dL (50-170); Iron Binding Capacity, Total 126 mcg/dL (265-497)
[2019-07-07 07:41] LABS: ALT (SGPT) 9 U/L (8-55); AST (SGOT) 17 U/L (5-34); Albumin 2.4 g/dL (3.4-4.8); Alkaline Phosphatase 65 U/L (40-110); Anion Gap 13 mmol/L (10-20); BUN (Urea Nitrogen) 12 mg/dL (9.8-20.1); Bilirubin, Total 0.3 mg/dL (0.2-1.2); Calc. Creatinine Clearance 32 mL/min (70-130); Calcium 7.1 mg/dL (7.8-10.44); Carbon Dioxide 23 mmol/L (23-31); Chloride 106 mmol/L (98-107); Estimated GFR-MDRD 30; Globulin 3.8 g/dL (2.4-3.5); Glucose 113 mg/dL (80-115); Iron 20 ug/dL (50-170); Iron Binding Capacity, Total 128 mcg/dL (265-497); Protein, Total 6.2 g/dL (6.0-8.3); Sodium 139 mmol/L (136-145)
--- NOTE | 2019-07-07 08:42 | PRG ---
DATE OF SERVICE: 07/07/2019 SUBJECTIVE: A 64-year-old female being seen for acute kidney injury. The patient denied nausea, vomiting, or chest pain. OBJECTIVE: CONSTITUTIONAL: The patient is awake and alert. VITAL SIGNS: Pulse 75, breathing 16, and blood pressure 176/68. GENERAL APPEARANCE AND MENTAL STATUS: Fair. HEAD/NECK: Normocephalic. Atraumatic. EYES: EOMI. No deformity. EARS: Clear. No ulcers. NOSE: Intact. No lesions. MOUTH: Clear. No discharge. THROAT: Clear. No exudate. LUNGS: Clear. No crackles. CARDIAC: S1, S2. No rub. ABDOMEN: Benign. Bowel sounds positive. GENITALIA/RECTUM: Hodges absent. BACK/EXTREMITIES: Edema 0+. NEUROLOGICAL: Alert and motor intact. SKIN: LYMPHATICS: LABORATORY DATA: Labs show hemoglobin 9.1. Creatinine was 1.99. ASSESSMENT AND PLAN: Acute kidney injury, improved. Hypertension, stable. Anemia, stable. Medications based on GFR appropriate. Hypokalemia, recommend high potassium diet and 20 mEq of potassium. Job ID: [id number]
[2019-07-07] MEDS ORDERED: Potassium Chloride 20 MEQ TAB PO SCH (09:15)
[2019-07-07] MEDS: Leflunomide 10 mg Tablet PO SCH (09:42)
[2019-07-07] MEDS: Fluconazole 100 MG TAB PO SCH (09:43)
[2019-07-07] MEDS: Losartan 25 MG TAB PO SCH (09:43)
[2019-07-07] MEDS: Amlodipine 10 MG TAB PO SCH (09:44)
[2019-07-07] MEDS: Metoprolol Tartrate 50 MG TAB PO SCH (09:44)
[2019-07-07] MEDS: HumuLIN 70/30 (300 UNITS/3 ML VIAL) SC SCH ×2 (09:45→20:44)
[2019-07-07] MEDS: hydrALAZINE 10 MG TAB PO SCH ×2 (09:46→14:40)
[2019-07-07] MEDS: Acetaminophen/Codeine 30-300mg Tablet PO PRN (14:39)
[2019-07-07] MEDS ORDERED: cloNIDine 0.1 MG TAB PO PRN (15:15)
--- NOTE | 2019-07-07 18:51 | PDOC.HOSPP ---
- Subjective Encounter Date: 07/07/19 Encounter Time: 10:00 Subjective: Pt seen for followup re: symptomatic anemia. Feels slightly better. - Objective Vital Signs & Weight: Vital Signs (12 hours) Temp Pulse Resp BP BP Pulse Ox 07/07/19 16:49 178/65 H 07/07/19 14:40 79 199/76 H 07/07/19 09:46 79 200/69 H 07/07/19 09:44 79 200/69 H 07/07/19 07:26 97.8 F 79 16 195/81 H 97 Weight Admit Weight 157 lb 11.2 oz Weight 157 lb 11.2 oz I&O: 07/06/19 07/07/19 07/08/19 06:59 06:59 06:59 Intake Total 1230 1362 2335 Balance 1230 1362 2335 Result Diagrams: 07/07/19 07:00 07/07/19 07:00 Additional Labs: Accuchecks 07/07/19 07/07/19 07/07/19 16:09 11:11 04:07 POC Glucose 93 128 H 70 07/06/19 19:10 POC Glucose 272 H Labs and MARs reviewed by nv Hospitalist ROS - Review of Systems Respiratory: denies: cough, shortness of breath, SOB with excertion, pleuritic pain, wheezing Cardiovascular: denies: chest pain, palpitations, orthopnea, paroxysmal noc. dyspnea, edema, light headedness - Medication Medications: Active Medications Generic Name Dose Route Start Last Admin Trade Name Freq PRN Reason Stop Dose Admin Acetaminophen/Codeine Phosphate 1 tab 07/06/19 05:14 07/07/19 14:39 Tylenol #3 PO 1 tab Q12HR PRN Administration Pain Amlodipine Besylate 10 mg 07/07/19 09:00 07/07/19 09:44 Norvasc PO 10 mg DAILY SHO Administration Clonidine 0.1 mg 07/07/19 15:15 07/07/19 16:49 Catapres PO 0.1 mg Q4H PRN Administration SBP Greater Than 170 Fluconazole 200 mg 07/07/19 09:00 07/07/19 09:43 Diflucan PO 200 mg DAILY SHO Administration Hydralazine HCl 10 mg 07/06/19 15:00 07/07/19 14:40 Apresoline PO 10 mg TID SHO Administration Sodium Chloride 1,000 mls @ 75 mls/hr 07/06/19 11:45 07/07/19 14:43 Normal Saline 0.9% IV 1,000 mls .[id number] SHO Administration Insulin Human Isoph/Insulin Regular 25 units 07/06/19 21:00 07/06/19 20:47 Humulin 70/30 SC 25 unit HS SHO Administration Insulin Human Isoph/Insulin Regular 40 units 07/07/19 08:00 07/07/19 09:45 Humulin 70/30 SC 40 unit QAM-WM SHO Administration Insulin Human Lispro 0 units 07/06/19 05:50 07/06/19 18:23 Humalog SC 4 units .MODERATE SLIDING SC PRN Administration Moderate Correctional Scale Insulin Human Lispro 0 units 07/06/19 05:50 07/06/19 20:47 Humalog SC 3 unit .BEDTIME SLIDING SC PRN Administration Bedtime Correctional Scale Leflunomide 20 mg 07/07/19 09:00 07/07/19 09:42 Arava PO 20 mg DAILY SHO Administration Losartan Potassium 25 mg 07/07/19 09:00 07/07/19 09:43 Cozaar PO 25 mg DAILY SHO Administration Metoprolol Tartrate 50 mg 07/07/19 09:00 07/07/19 09:44 Lopressor PO 50 mg DAILY SHO Administration Pantoprazole Sodium 40 mg 07/07/19 09:00 07/07/19 09:45 Protonix PO 40 mg BID SHO Administration - Exam General Appearance: NAD Eye: anicteric sclera ENT: moist mucosa Neck: supple Heart: RRR Respiratory: CTAB Gastrointestinal: soft, non-tender Musculoskeletal: no muscle wasting Psychiatric: normal affect, normal behavior Hosp A/P (1) Symptomatic anemia Code(s): D64.9 - ANEMIA, UNSPECIFIED Status: Acute (2) Hypokalemia Code(s): E87.6 - HYPOKALEMIA Status: Acute (3) Hypertensive urgency Code(s): I16.0 - HYPERTENSIVE URGENCY Status: Acute (4) Acute worsening of stage 3 chronic kidney disease Code(s): N18.3 - CHRONIC KIDNEY DISEASE, STAGE 3 (MODERATE) Status: Acute (5) DM2 (diabetes mellitus, type 2) Status: Chronic (6) GERD (gastroesophageal reflux disease) Code(s): K21.9 - GASTRO-ESOPHAGEAL REFLUX DISEASE WITHOUT ESOPHAGITIS Status: Chronic - Plan out of bed/ambulate s/p pRBC transfusion, hemoglobin improved to 9.1. Replace potassium. Continue accuchecks and insuin sliding scale. Increase hydralazine dose to 25 mg PO QID. Improving renal function.
[2019-07-07] MEDS ORDERED: hydrALAZINE 25 MG TAB PO SCH (19:00)
[2019-07-07] MEDS: hydrALAZINE 25 MG TAB PO SCH (20:43)
[2019-07-07] MEDS ORDERED: Famotidine 20 MG TAB PO SCH (21:00)
[2019-07-08] MEDS: Sodium Chloride 0.9% 1,000 ML IV SCH (00:17)
[2019-07-08] MEDS: Losartan 25 MG TAB PO SCH (09:01)
[2019-07-08] MEDS: Fluconazole 100 MG TAB PO SCH (09:01)
[2019-07-08] MEDS: Amlodipine 10 MG TAB PO SCH (09:02)
[2019-07-08] MEDS: Leflunomide 10 mg Tablet PO SCH (09:02)
[2019-07-08] MEDS: hydrALAZINE 25 MG TAB PO SCH ×2 (09:02→13:19)
[2019-07-08] MEDS: Metoprolol Tartrate 50 MG TAB PO SCH (09:02)
[2019-07-08] MEDS: HumuLIN 70/30 (300 UNITS/3 ML VIAL) SC SCH (09:03)
[2019-07-08 09:36] LABS: #Basophils 0.1 thou/uL (0.0-0.2); #Eosinphils 0.1 thou/uL (0.0-0.7); #Lymphocytes 0.9 thou/uL (1.20-3.40); #Monocytes 0.8 thou/uL (0.11-0.59); #Neutrophils 6.2 thou/uL (1.40-6.50); %Basophils 0.7 % (0.0-1.0); %Eosinophils 1.6 % (0.0-10.0); %Lymphocytes 11.4 % (21.0-51.0); %Neutrophils 76.4 % (42.0-75.0); Hemoglobin 9.1 g/dL (12.0-16.0); Mean Corpuscular HGB CONC 31.9 g/dL (32.0-36.0); Mean Corpuscular Hemoglobin 24.4 pg (27.0-31.0); Mean Corpuscular Volume 76.5 fL (78.0-98.0); Mean Platelet Volume 7.5 fL (7.4-10.4); Platelet Count 286 thou/uL (130-400); RBC Distribution Width 16.3 % (11.5-14.5); Red Blood Cell (RBC) Count 3.74 mill/uL (4.20-5.40); White Blood Cell (WBC) Count 8.1 thou/uL (4.8-10.8)
[2019-07-08 09:59] LABS: Anion Gap 13 mmol/L (10-20); BUN (Urea Nitrogen) 11 mg/dL (9.8-20.1); Calc. Creatinine Clearance 31 mL/min (70-130); Calcium 7.2 mg/dL (7.8-10.44); Carbon Dioxide 23 mmol/L (23-31); Chloride 105 mmol/L (98-107); Estimated GFR-MDRD 30; Glucose 254 mg/dL (80-115); Sodium 138 mmol/L (136-145)
[2019-07-08 10:04] LABS: Potassium 2.9 mmol/L (3.5-5.1)
[2019-07-08] MEDS ORDERED: Potassium Chloride 20 MEQ TAB PO SCH (10:15)
[2019-07-08] MEDS: Acetaminophen/Codeine 30-300mg Tablet PO PRN (10:44)
--- NOTE | 2019-07-08 11:39 | PRG ---
DATE OF SERVICE: 07/08/2019 SUBJECTIVE: The patient is a 64-year-old female being seen for acute kidney injury. The patient denied nausea, vomiting, or chest pain. OBJECTIVE: CONSTITUTIONAL: The patient is awake and alert. VITAL SIGNS: Pulse 97, breathing 16, and blood pressure 168/51. GENERAL APPEARANCE AND MENTAL STATUS: Fair. HEAD/NECK: Normocephalic. Atraumatic. EYES: EOMI. No deformity. EARS: Clear. No ulcers. NOSE: Intact. No lesions. MOUTH: Clear. No discharge. THROAT: Clear. No exudate. LUNGS: Clear. No crackles. CARDIAC: S1, S2. No rub. ABDOMEN: Benign. Bowel sounds positive. GENITALIA/RECTUM: Hodges absent. BACK/EXTREMITIES: Edema 0+. NEUROLOGICAL: Alert and motor intact. SKIN: LYMPHATICS: LABORATORY DATA: Labs show hemoglobin 9.1 and creatinine is 2.03. ASSESSMENT AND PLAN: 1. Acute kidney injury, improved. 2. Chronic kidney disease stage 3, stable. 3. Hypertension, stable. 4. Hypokalemia, recommend 40 mEq of potassium. 5. Medication based on GFR appropriate. Job ID: [id number]
--- NOTE | 2019-07-08 13:03 | DIS ---
DATE OF ADMISSION: 07/05/2019 DATE OF DISCHARGE: 07/08/2019 PRIMARY CARE PROVIDER: Dr. Robert Rivera. DISCHARGE DIAGNOSES: 1. Symptomatic anemia. 2. Acute on chronic stage 3 renal failure. 3. Hypertensive urgency. 4. Hypokalemia. CONDITION OF PATIENT ON THE DAY OF DISCHARGE: Stable. I assessed Ms. Roberts on the day of discharge. She denies any chest pain or shortness of breath. Vital signs are stable. S1 and S2 are heard, regular. Lungs are clear to auscultation bilaterally. DISCHARGE MEDICATIONS: Metformin has been discontinued. Cozaar has been discontinued. Hydralazine dose has been increased to 25 mg 4 times a day. Otherwise, no change was made to her pre-admission home medications as dictated by Ms. Oro in her history and physical note dated, July 06, 2019. CONSULTATIONS DURING THIS HOSPITALIZATION: Nephrology, Dr. Ortiz. Post discharge followups: The patient is advised to follow up with primary care provider in 3 to 5 days [address] and with Dr. Ortiz in 1 weeks' time. HOSPITAL COURSE: Ms. Roberts is a pleasant 64-year-old lady, who was admitted to [facility] on July 06, 2019 for symptomatic anemia. Please refer to Ms. Oro's history and physical note dated July 06, 2019, for further details. She received 1 unit packed RBC transfusion, with improvement in her hemoglobin. She was also seen by Nephrology Service for acute on chronic stage 3 renal failure. Her creatinine was 3.16 on July 05, 2019. It improved to 2.03 on the day of discharge. Metformin and losartan are on hold at the time of this discharge. She is advised to stop them until resumed by Nephrology Service. She has also been advised to have her blood pressure and heart rate checked 3 times a day and show the readings to her primary care provider. Her blood pressures were elevated during this hospitalization and hydralazine dose was increased. She is also advised to check her blood sugars 3 times a day and show the readings to her primary care provider. On the day of discharge, she has sodium 138; potassium 2.9, which is being replaced; and creatinine 2.03. White count 8100, hemoglobin 9.1, and platelet count 286,000. DISCHARGE DESTINATION: Home. TIME SPENT: Total amount of time spent coordinating this discharge, 32 minutes. Job ID: [id number]
[2019-07-08 13:24] VITALS: BP 170/81
[2019-07-08 13:26] VITALS: TEMP 98.9
[2019-07-08 14:09] LABS: A/G Ratio 0.5 (0.7-1.7); Albumin 1.9 g/dL (2.9-4.4); Alpha 1 0.4 g/dL (0.0-0.4); Alpha 2 1.8 g/dL (0.4-1.0); Beta 0.9 g/dL (0.7-1.3); Gamma 0.7 g/dL (0.4-1.8); Globulin, Total 3.7 g/dL (2.2-3.9); M-Spike Not Observed g/dL (Not Observed)
[2019-07-08 14:20] LABS: Alpha 1 - Ur 13.1 % (.); Alpha 2 - Ur 11.8 % (.); Beta-Ur 14.7 % (.); Gamma-Ur 14.3 % (.); M-Spike,% Not Observed % (Not Observed); Protein, Urine 491.2 mg/dL (Not Estab.)
--- NOTE | 2019-07-10 04:26 | PQF ---
CARA EASTMAN DAVID [id number] CLINICAL DOCUMENTATION CLARIFICATION FORM: POST DISCHARGE Addendum to original discharge summary date: ____ Late entry note date: __ DATE: 07/10/19 ATTN: Hamzah Hanson Please exercise your independent, professional judgment in responding to the clarification form. Clinical indicators are provided on the bottom of this form for your review Please check appropriate box(s): [ ] Iron Deficiency Anemia [ x ] Anemia of CKD [ ] Other diagnosis [ ] Unable to determine In addition, please specify: Present on Admission (POA): [ x ] Yes [ ] No [ ] Unable to determine For continuity of documentation, please document condition throughout progress notes and discharge summary. Thank You. CLINICAL INDICATORS - SIGNS / SYMPTOMS / LABS ED Provider p3 07/05 her labs show that she is severely anemic with Hgb count of7.8 Consult p2 07/06 Dr. Ortiz RAFAELA due to ATN and decreased effective arterial blood volume H&P p1 07/06 Her creatinine was 3.16, BUN27, estimated GFR 18 H&P p1 07/06 Admitted for observation for symptomatic anemia, acute on chronic kdney disease RISK FACTORS H&P p1 07/06 CKD H&P p1 07/06 DM H&P p1 07/06 PMHX of Anemia requiring Iron transfusion TREATMENTS: Consult p2 07/06 Dr. Ortiz Check Hemoglobin H&P p2 07/06 Order Iron studies, ferritin, recheck hemoglobin Blood bank Transfussed PRBC 07/06 (This form is maintained as a part of the permanent medical record) 2014 [employer]. All Rights Reserved [email or web address] [not provided] MTDD
== END 2019-07-08 13:31 | disposition home or self-care (01) | DRG 682 ==
LOC: ERS 19:29 → T4-B 21:30
PROVIDERS: ADMIT Family Medicine; ATTEND Family Medicine
PROC: 30233N1 Transfusion of Nonautologous Red Blood Cells into Peripheral Vein, Percutaneous Approach (ICD-10-PCS; principal; 2019-07-06)
PROC: 3E02340 Introduction of Influenza Vaccine into Muscle, Percutaneous Approach (ICD-10-PCS; 2019-07-06)
PROC: 3E0234Z Introduction of Serum, Toxoid and Vaccine into Muscle, Percutaneous Approach (ICD-10-PCS; 2019-07-06)
DX: I12.9 Hypertensive chronic kidney disease with stage 1 through stage 4 chronic kidney disease, or unspecified chronic kidney disease (principal); N17.0 Acute kidney failure with tubular necrosis; K21.9 Gastro-esophageal reflux disease without esophagitis; E78.5 Hyperlipidemia, unspecified; E11.22 Type 2 diabetes mellitus with diabetic chronic kidney disease; I16.0 Hypertensive urgency; N18.3 Chronic kidney disease, stage 3 (moderate); D63.1 Anemia in chronic kidney disease; M54.30 Sciatica, unspecified side; E87.6 Hypokalemia; Z90.710 Acquired absence of both cervix and uterus; Z88.5 Allergy status to narcotic agent; Z88.2 Allergy status to sulfonamides; Z79.899 Other long term (current) drug therapy; Z79.4 Long term (current) use of insulin; Z23 Encounter for immunization
CPT/HCPCS: 36415; 36416; 36430; 74176; 80048; 80053; 81003; 81015; 82728; 83540; 83550; 84100; 84165; 84166; 85025; 86850; 86900; 86901; 86921; 90471; 90662; 90670; 96360; 96361; G0008; G0009; J1815; P9016

== ENCOUNTER 2019-07-22 09:53 | Inpatient (IN) | payer BC, MEDICARE ==
[2019-07-22 10:29] LABS: Hemoglobin 8.8 g/dL (12.0-16.0); Mean Corpuscular HGB CONC 31.5 g/dL (32.0-36.0); Mean Corpuscular Hemoglobin 23.5 pg (27.0-31.0); Mean Corpuscular Volume 74.6 fL (78.0-98.0); Mean Platelet Volume 6.9 fL (7.4-10.4); Platelet Count 578 thou/uL (130-400); RBC Distribution Width 16.2 % (11.5-14.5); Red Blood Cell (RBC) Count 3.73 mill/uL (4.20-5.40); White Blood Cell (WBC) Count 8.9 thou/uL (4.8-10.8)
[2019-07-22 10:39] LABS: #Basophils 0.1 thou/uL (0.0-0.2); #Eosinphils 0.1 thou/uL (0.0-0.7); #Lymphocytes 1.5 thou/uL (1.20-3.40); #Monocytes 0.9 thou/uL (0.11-0.59); #Neutrophils 6.2 thou/uL (1.40-6.50); %Basophils 1.6 % (0.0-1.0); %Eosinophils 1.5 % (0.0-10.0); %Lymphocytes 16.5 % (21.0-51.0); %Monocytes 10.2 % (0.0-10.0); %Neutrophils 70.2 % (42.0-75.0); Anisocytosis SLIGHT = 6-15 cells (100X) (0-5/hpf); Hypochromia SLIGHT = 6-15 cells (100X) (0-5/hpf); MDiff Complete? YES; Microcytosis SLIGHT = 6-15 cells (100X) (0-5/hpf); Platelet Morphology Comment Appears Increased
--- NOTE | 2019-07-22 10:45 | RAD ---
PORTABLE CHEST: Date: 07/22/19 PROVIDED CLINICAL HISTORY: Dyspnea. FINDINGS: Comparison with 01/09/19. Cardiac and mediastinal silhouette is within normal limits. Lungs appear clear. No pleural fluid or p neumothorax apparent. IMPRESSION: No evidence for an acute cardiopulmonary process. POS: [facility]
[2019-07-22 12:59] LABS: ALT (SGPT) 8 U/L (8-55); AST (SGOT) 15 U/L (5-34); Albumin 2.7 g/dL (3.4-4.8); Alkaline Phosphatase 99 U/L (40-110); Anion Gap 15 mmol/L (10-20); BUN (Urea Nitrogen) 16 mg/dL (9.8-20.1); Bilirubin, Total Less than 0.2 mg/dL (0.2-1.2); Calc. Creatinine Clearance 0 mL/min (70-130); Calcium 8.5 mg/dL (7.8-10.44); Carbon Dioxide 21 mmol/L (23-31); Chloride 107 mmol/L (98-107); Estimated GFR-MDRD 26; Globulin 4.4 g/dL (2.4-3.5); Glucose 256 mg/dL (80-115); Potassium 3.5 mmol/L (3.5-5.1); Protein, Total 7.1 g/dL (6.0-8.3); Sodium 139 mmol/L (136-145)
[2019-07-22] MEDS ORDERED: Morphine 4 MG/ML VIAL ONE (14:03)
[2019-07-22] MEDS ORDERED: cloNIDine 0.1 MG TAB ONE (15:04)
[2019-07-22 16:27] VITALS: BMI 32.0
[2019-07-22] MEDS ORDERED: Acetaminophen 325 MG TAB PO PRN (17:17)
[2019-07-22] MEDS ORDERED: Ondansetron PF 4 MG/2 ML Vial IVP PRN (17:17)
[2019-07-22] MEDS ORDERED: Dextrose 50% Abboject 50 ML SYRINGE SLOW IVP PRN (17:21)
[2019-07-22] MEDS ORDERED: Dextrose 5% in Water 1,000 ML IV PRN (17:21)
[2019-07-22] MEDS ORDERED: hydrALAZINE 25 MG TAB PO SCH (17:45)
[2019-07-22] MEDS ORDERED: Furosemide 20 MG/2 ML VIAL SLOW IVP SCH (17:45)
[2019-07-22] MEDS: HumaLOG 300 UNITS/3 ML VIAL SC PRN (18:06)
--- NOTE | 2019-07-22 18:29 | CON ---
DATE OF CONSULTATION: REASON FOR CONSULTATION: Edema and elevated creatinine. HISTORY OF PRESENT ILLNESS: This is a very pleasant 64-year-old female with a history of hypertension and proteinuria, presented to the hospital with increasing back swelling and dyspnea. The patient's baseline creatinine was 1.3, which has gradually increased to 1.7 and is 2.3 today. The patient had a creatinine clearance of 44 with a 9 g of proteinuria. Her SPEP and UPEP were negative. The kidney biopsy has recommended that her blood pressure was controlled. PAST MEDICAL HISTORY: Significant for hypertension, hyperlipidemia, diabetes mellitus, proteinuria, hysterectomy, ablation, and colon polyp. HOME MEDICATION: List reviewed. HOSPITAL MEDICATION: List reviewed. ALLERGIES: REVIEWED. REVIEW OF SYSTEMS: Fifteen point review of system was performed, negative except for positives noted above. GENERAL: HEAD: NECK: No swelling or lumps. NOSE: No epistaxis or discharge. EYES: No diplopia or pain. 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 NEUROPSYCHIATRIC SYSTEMS: No suicidal ideation. No ideation. SKIN: Denies any rash or ulcer. CONSTITUTIONAL: No fever or chills. PHYSICAL EXAMINATION: GENERAL: The patient is awake and alert. VITAL SIGNS: Afebrile, pulse 75, breathing 16, and blood pressure was 189/73. GENERAL APPEARANCE AND MENTAL STATUS: Fair. HEAD/NECK: Normocephalic. Atraumatic. EYES: EOMI. No deformity. EARS: Clear. No ulcers. NOSE: Intact. No lesions. MOUTH: Clear. No discharge. THROAT: Clear. No exudate. LUNGS: Clear. No crackles. CARDIAC: S1, S2. No rub. ABDOMEN: Benign. Bowel sounds positive. GENITALIA/RECTUM: Hodges absent. BACK/EXTREMITIES: Lower extremities have 3+ edema. NEUROLOGICAL: Alert and motor intact. SKIN: LYMPHATICS: ASSESSMENT AND RECOMMENDATIONS: 1. 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 The patient will eventually need a kidney biopsy after her blood pressure is controlled. This could be diabetic nephropathy versus membranous nephropathy. 2. Hypertension, stable. 3. Anemia. Workup for breast medication based on GFR is out of appropriate. Job ID: [id number]
[2019-07-22] MEDS: HYDROcodone/Acetaminophen 7.5/325 mg Tablet PO PRN (20:13)
[2019-07-22] MEDS: hydrALAZINE 25 MG TAB PO SCH (20:15)
[2019-07-22] MEDS: Metoprolol Tartrate 50 MG TAB PO SCH (20:15)
--- NOTE | 2019-07-22 20:42 | HP ---
CHIEF COMPLAINT: Shortness of breath. HISTORY OF PRESENT ILLNESS: This patient is a 64-year-old female with a history of early stage 4 chronic kidney disease, followed by Dr. Ortiz. She was just admitted here on 07/05/2019 with what appeared to be some similar symptoms, thought to be related to anemia from iron deficiency and chronic kidney disease. She was subsequently transfused. The patient reports she is doing okay, but she is not able to be as energetic at work as she has in the past. She is warned to go slower and do things differently in order to accommodate her inability to work aggressively without having some dyspnea on exertion, and she reports that she has not been following her sodium in her diet very carefully, although she is very careful not to have any added sodium. The patient presented to the emergency department with shortness of breath and lower extremity edema over the past several days, was getting worse. She had some associated nausea, but no vomiting. States she feels tightness in her chest when trying to breathe deeply and some discomfort in lower extremities, both upper and lower ranging, from 5/10 to 9/10, seems to be worse when she gets up and moves around. REVIEW OF SYSTEMS: She has had no specific chest pain. No cough. No fevers or chills. All other systems reviewed, all pertinent positives and negatives noted in History of Present Illness. PAST MEDICAL HISTORY: Chronic kidney disease, stage 4, followed by Dr. Ortiz. She has iron deficiency anemia, [facility] She has gastroesophageal reflux disease, type 2 diabetes, and degenerative joint disease of hip. PAST SURGICAL HISTORY: Hysterectomy, cataract-ectomy, and colonoscopy. SOCIAL HISTORY: Nonsmoker, nondrug user. Occasional social drinker. Full code. ALLERGIES: SULFA, CODEINE, AND CITRIC ACID. PHYSICAL EXAMINATION: VITAL SIGNS: Temperature 98.6, pulse 111, respirations 18, O2 saturation 95% on room air, and blood pressure 189/93. GENERAL APPEARANCE: Age-appropriate female, in no distress. She is awake, alert, oriented, pleasant, cooperative. HEENT: [place]. No OP lesions. NECK: Supple and symmetric without lymphadenopathy, JVD, or carotid bruits. HEART: Regular rhythm, tachycardic. No murmurs. LUNGS: Clear bilaterally with no wheezes or rales. ABDOMEN: Soft, nontender, and nondistended. EXTREMITIES: Have 2+ pitting edema to the mid calf down and some puffy edema of the fingers in upper extremities. PSYCH: Normal affect and behavior. NEUROLOGIC: She has normal cognition. Normal cranial nerve function. Normal spontaneous movement of extremities. LABORATORY DATA: White count 8.9, hemoglobin 8.8, and platelets are 578. Sodium 139; potassium 3.5; chloride 107; CO2 of 21; BUN 16; creatinine is 2.3; and glucose 256, subsequent 325. Total bilirubin was less than 0.2. AST 15, ALT 8, and alkaline phosphatase 89. Troponin less than 0.01. BNP 36. Albumin 2.7. DIAGNOSTIC DATA: Chest x-ray shows normal. EKG shows sinus tachycardia. IMPRESSION AND PLAN: 1. Apparent volume overload with a generalized edema. The patient's prior labs reveal that she has significant proteinuria with about 9 g of protein, put out in a 24-hour period. She has some hypoalbuminemia; as a result, some of this edema is likely related. She is also on amlodipine, which is likely making her lower extremity edema, possibly the upper extremity edema worse as well. She is also not particularly compliant with the diet related to her sodium levels. She will be seen by Dr. Ortiz. We will give her a small dose of Lasix and ask the dietitian to see her as well. 2. Hypertension. The patient did not take all of her blood pressure medications today. She took her morning medications, but takes her hydralazine 4 times a day and has only had it once. We will go ahead and reinitiate that for her now. 3. Chronic kidney disease, stage 4. Creatinine is pretty close to her baseline. 4. Hyperlipidemia. Continue with her home medications. 5. Iron deficiency anemia, chronic, likely combined with some anemia of chronic kidney disease. She does get iron infusions. Job ID: [id number]
[2019-07-23] MEDS: HumaLOG 300 UNITS/3 ML VIAL SC PRN ×3 (01:13→16:32)
[2019-07-23 06:59] LABS: #Basophils 0.1 thou/uL (0.0-0.2); #Eosinphils 0.2 thou/uL (0.0-0.7); #Lymphocytes 2.4 thou/uL (1.20-3.40); #Monocytes 0.9 thou/uL (0.11-0.59); #Neutrophils 4.2 thou/uL (1.40-6.50); %Basophils 1.2 % (0.0-1.0); %Eosinophils 2.2 % (0.0-10.0); %Lymphocytes 30.5 % (21.0-51.0); %Monocytes 11.9 % (0.0-10.0); %Neutrophils 54.2 % (42.0-75.0); Hemoglobin 8.8 g/dL (12.0-16.0); Mean Corpuscular HGB CONC 31.6 g/dL (32.0-36.0); Mean Corpuscular Hemoglobin 23.7 pg (27.0-31.0); Mean Corpuscular Volume 75.1 fL (78.0-98.0); Mean Platelet Volume 6.9 fL (7.4-10.4); Platelet Count 530 thou/uL (130-400); RBC Distribution Width 16.2 % (11.5-14.5); Red Blood Cell (RBC) Count 3.69 mill/uL (4.20-5.40); White Blood Cell (WBC) Count 7.7 thou/uL (4.8-10.8)
[2019-07-23 07:17] LABS: Anion Gap 12 mmol/L (10-20); BUN (Urea Nitrogen) 14 mg/dL (9.8-20.1); Calc. Creatinine Clearance 39 mL/min (70-130); Calcium 8.4 mg/dL (7.8-10.44); Carbon Dioxide 26 mmol/L (23-31); Chloride 107 mmol/L (98-107); Estimated GFR-MDRD 35; Glucose 155 mg/dL (80-115); Potassium 3.8 mmol/L (3.5-5.1); Sodium 141 mmol/L (136-145)
[2019-07-23] MEDS ORDERED: Metoprolol Tartrate 50 MG TAB PO SCH ×3 (09:00→09:45)
[2019-07-23] MEDS: Leflunomide 10 mg Tablet PO SCH (09:01)
[2019-07-23] MEDS: hydrALAZINE 25 MG TAB PO SCH ×4 (09:02→20:07)
[2019-07-23] MEDS: Metoprolol Tartrate 50 MG TAB PO SCH (09:02)
[2019-07-23 09:05] LABS: PTT 32.4 SEC (22.9-36.1)
[2019-07-23 09:21] LABS: Prothrombin Time 13.2 SEC (12.0-14.7)
[2019-07-23] MEDS ORDERED: Losartan 25 MG TAB PO SCH (09:45)
--- NOTE | 2019-07-23 12:19 | PRG ---
DATE OF SERVICE: 07/23/2019 SUBJECTIVE: A 64-year-old female being seen for acute kidney injury. The patient denies any nausea, vomiting, or chest pain. OBJECTIVE: CONSTITUTIONAL: The patient is awake and alert. VITAL SIGNS: Afebrile, pulse 76, breathing 16, and blood pressure was 172/78. GENERAL APPEARANCE AND MENTAL STATUS: Fair. HEAD/NECK: Normocephalic. Atraumatic. EYES: EOMI. No deformity. EARS: Clear. No ulcers. NOSE: Intact. No lesions. MOUTH: Clear. No discharge. THROAT: Clear. No exudate. LUNGS: Clear. No crackles. CARDIAC: S1, S2. No rub. ABDOMEN: Benign. Bowel sounds positive. GENITALIA/RECTUM: Hodges absent. BACK/EXTREMITIES: Edema 0+. NEUROLOGICAL: Alert and motor intact. SKIN: LYMPHATICS: LABORATORY DATA: Reviewed. ASSESSMENT AND PLAN: 1. Acute kidney injury, improved. 2. Hypertension, stable. 3. Anemia, stable. 4. Medication based on GFR, appropriate. 5. Nephrotic range proteinuria. We will plan kidney biopsy as an outpatient once blood pressure is controlled. Job ID: [id number]
[2019-07-23] MEDS ORDERED: hydrALAZINE 20 MG/ML VIAL SLOW IVP SCH (13:45)
[2019-07-23] MEDS: Metoprolol Tartrate 100 MG TAB PO SCH (20:06)
[2019-07-24] MEDS: Metoprolol Tartrate 100 MG TAB PO SCH ×2 (07:48→20:08)
[2019-07-24] MEDS: hydrALAZINE 25 MG TAB PO SCH ×3 (07:48→20:07)
[2019-07-24] MEDS: Losartan 25 MG TAB PO SCH (07:48)
[2019-07-24] MEDS: Leflunomide 10 mg Tablet PO SCH (07:49)
[2019-07-24] MEDS: HYDROcodone/Acetaminophen 7.5/325 mg Tablet PO PRN ×2 (10:23→14:24)
[2019-07-24] MEDS: HumaLOG 300 UNITS/3 ML VIAL SC PRN ×2 (11:48→20:58)
--- NOTE | 2019-07-24 12:42 | PRG ---
DATE OF SERVICE: 07/24/2019 SUBJECTIVE: This is a 64-year-old female being seen for acute kidney injury. The patient denies any nausea, vomiting, or chest pain. OBJECTIVE: CONSTITUTIONAL: The patient is awake and alert. VITAL SIGNS: Afebrile, pulse 75, breathing 16, and blood pressure was 184/81. GENERAL APPEARANCE AND MENTAL STATUS: Fair. HEAD/NECK: Normocephalic. Atraumatic. EYES: EOMI. No deformity. EARS: Clear. No ulcers. NOSE: Intact. No lesions. MOUTH: Clear. No discharge. THROAT: Clear. No exudate. LUNGS: Clear. No crackles. CARDIAC: S1, S2. No rub. ABDOMEN: Benign. Bowel sounds positive. GENITALIA/RECTUM: Hodges absent. BACK/EXTREMITIES: Edema 0+. NEUROLOGICAL: Alert and motor intact. SKIN: LYMPHATICS: LABORATORY DATA: Labs reviewed. ASSESSMENT AND PLAN: Chronic kidney disease stage 3, stable. Acute kidney injury, stable. Proteinuria, kidney biopsy planned. Hypertension, we will increase hydralazine to 100 mg t.i.d. Job ID: [id number]
--- NOTE | 2019-07-24 17:15 | PDOC.HOSPP ---
- Subjective Encounter Date: 07/24/19 Encounter Time: 17:10 Subjective: f/u for RAFAELA/CKD with uncontrolled HTN. States some ARORA, no CP, SOB. LE edema improved. - Objective Vital Signs & Weight: Vital Signs (12 hours) Temp Pulse Resp BP Pulse Ox 07/24/19 16:25 98.2 F 89 20 184/72 H 94 L 07/24/19 14:24 76 07/24/19 11:43 97.8 F 76 20 184/81 H 96 07/24/19 07:48 83 07/24/19 07:21 98.5 F 83 20 189/73 H 97 07/24/19 05:43 159/76 H Weight Admit Weight 169 lb 5 oz Weight 169 lb 5 oz I&O: 07/23/19 07/24/19 07/25/19 06:59 06:59 06:59 Intake Total 480 800 480 Balance 480 800 480 Result Diagrams: 07/23/19 06:31 07/23/19 06:31 Additional Labs: Accuchecks 07/24/19 07/24/19 07/24/19 16:25 11:43 04:15 POC Glucose 195 H 345 H 180 H 07/23/19 07/23/19 19:10 16:34 POC Glucose 188 H 331 H Hospitalist ROS - Medication Medications: Active Medications Generic Name Dose Route Start Last Admin Trade Name Freq PRN Reason Stop Dose Admin Hydrocodone Bitart/Acetaminophen 1 tab 07/22/19 19:13 07/24/19 14:24 [place] 7.5/325 PO 1 tab Q4H PRN Administration Mild Pain (1-3) Hydralazine HCl 100 mg 07/24/19 15:00 07/24/19 14:24 Apresoline PO 100 mg TID SHO Administration Insulin Human Lispro 0 units 07/22/19 17:21 07/24/19 11:48 Humalog SC 5 unit .MILD SLIDING SCALE PRN Administration Mild Correctional Scale Leflunomide 20 mg 07/23/19 09:00 07/24/19 07:49 Arava PO 20 mg DAILY SHO Administration Losartan Potassium 25 mg 07/24/19 09:00 07/24/19 07:48 Cozaar PO 25 mg DAILY SHO Administration Metoprolol Tartrate 100 mg 07/23/19 21:00 07/24/19 07:48 Lopressor PO 100 mg BID SHO Administration - Exam General Appearance: NAD, awake alert Eye: PERRL, anicteric sclera ENT: normocephalic atraumatic, no oropharyngeal lesions Neck: supple, symmetric, no JVD, no thyromegaly Heart: RRR, no gallops, no rubs, normal peripheral pulses, murmur present, II/IV Respiratory: CTAB, no wheezes, no rales, no ronchi Gastrointestinal: soft, non-tender, non-distended, normal bowel sounds Extremities: no cyanosis, no clubbing Extremities - other findings: minimal ankle edema Skin: normal turgor, no lesions Neurological: cranial nerve grossly intact, no new deficit Musculoskeletal: normal tone, normal strength Psychiatric: normal affect, A&O x 3 Hosp A/P (1) Acute worsening of stage 3 chronic kidney disease Code(s): N18.3 - CHRONIC KIDNEY DISEASE, STAGE 3 (MODERATE) Status: Acute Plan: Avoid nephrotoxic meds and limit contrast exposure, serial creatinine monitoring (2) Hypertensive urgency Code(s): I16.0 - HYPERTENSIVE URGENCY Status: Acute Plan: HTN remains labile, add Clonidine 0.1mg BID, Hydralazine increased 100mg TID (3) Hypokalemia Code(s): E87.6 - HYPOKALEMIA Status: Acute Plan: Improved, serial K+ monitoring (4) DM2 (diabetes mellitus, type 2) Status: Chronic Plan: ISS, serial accuchecks, ADA (5) Hypertension Code(s): I10 - ESSENTIAL (PRIMARY) HYPERTENSION Status: Chronic Qualifiers: Hypertension type: essential hypertension Qualified Code(s): I10 - Essential (primary) hypertension Plan: Labile, titration of BP regimen for optimal control - Plan social services 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
[2019-07-24] MEDS ORDERED: cloNIDine 0.1 MG TAB PO SCH (21:00)
[2019-07-24] MEDS ORDERED: HumaLOG 300 UNITS/3 ML VIAL SC PRN ×2 (23:17→23:18)
[2019-07-25] MEDS: HYDROcodone/Acetaminophen 7.5/325 mg Tablet PO PRN (05:23)
[2019-07-25] MEDS ORDERED: cloNIDine 0.1 MG TAB PO PRN (07:14)
[2019-07-25 07:32] VITALS: BP 138/67; TEMP 98.3
[2019-07-25] MEDS: Leflunomide 10 mg Tablet PO SCH (07:55)
[2019-07-25] MEDS: hydrALAZINE 25 MG TAB PO SCH ×2 (07:55→14:47)
[2019-07-25] MEDS: Losartan 25 MG TAB PO SCH (07:55)
[2019-07-25] MEDS: Metoprolol Tartrate 100 MG TAB PO SCH (08:01)
[2019-07-25 08:47] LABS: Anion Gap 15 mmol/L (10-20); BUN (Urea Nitrogen) 17 mg/dL (9.8-20.1); Calc. Creatinine Clearance 38 mL/min (70-130); Calcium 8.2 mg/dL (7.8-10.44); Carbon Dioxide 21 mmol/L (23-31); Chloride 106 mmol/L (98-107); Estimated GFR-MDRD 34; Glucose 180 mg/dL (80-115); Potassium 3.7 mmol/L (3.5-5.1); Sodium 138 mmol/L (136-145)
--- NOTE | 2019-07-25 13:49 | PRG ---
DATE OF SERVICE: 07/25/2019 SUBJECTIVE: A 64-year-old female being seen for acute kidney injury. The patient denied any nausea, vomiting, or chest pain. OBJECTIVE: CONSTITUTIONAL: The patient is awake and alert. VITAL SIGNS: Afebrile, pulse rate 57, breathing 16, and blood pressure 138/67. GENERAL APPEARANCE AND MENTAL STATUS: Fair. HEAD/NECK: Normocephalic. Atraumatic. EYES: EOMI. No deformity. EARS: Clear. No ulcers. NOSE: Intact. No lesions. MOUTH: Clear. No discharge. THROAT: Clear. No exudate. LUNGS: Clear. No crackles. CARDIAC: S1, S2. No rub. ABDOMEN: Benign. Bowel sounds positive. GENITALIA/RECTUM: Hodges absent. BACK/EXTREMITIES: Edema 0+. NEUROLOGICAL: Alert and motor intact. SKIN: LYMPHATICS: LABORATORY DATA: Labs show creatinine 1.8 and potassium 3.7. ASSESSMENT AND PLAN: 1. Chronic kidney disease stage 3, stable. 2. Proteinuria. Plan kidney biopsy. 3. Hypertension, stable. Medication based on GFR appropriate. The patient will follow up in 1 week to see me. Job ID: [id number]
--- NOTE | 2019-07-26 18:23 | DIS ---
DATE OF ADMISSION: 07/24/2019 DATE OF DISCHARGE: 07/25/2019 DISCHARGE DISPOSITION: Home. FOLLOWUP: 1. Follow up with primary care physician, Robert Rivera in 1 week. 2. Follow up with Dr. Ortiz as scheduled. 3. Basic metabolic profile after 1 week is recommended. Primary care physician advised to follow. ALLERGIES: THE PATIENT IS ALLERGIC TO SULFA, CODEINE, AND CITRIC ACID. DISCHARGE MEDICATIONS: 1. Clonidine as needed. 2. Hydralazine 100 mg 3 times daily. 3. Losartan 25 mg daily. 4. Lopressor 100 mg b.i.d. All other home medications were left unchanged. Vital signs on the day of discharge show temperature 98.3, pulse rate of 77, respirations of 18, blood pressure of 138/67, with O2 saturation 97% on room air. SIGNIFICANT LABORATORY DATA: Creatinine at discharge 1.8, on admission was 2.3. WBC 8.9 with hemoglobin 8.8, platelet 578. INPATIENT ASSISTANT PROFESSOR OF HISTORY: Nephrology, Dr. Ortiz. BRIEF HOSPITAL COURSE: The patient is a 64-year-old female with chronic kidney disease and hypertension, presented to the hospital with shortness of breath. She was discharged from this facility on 07/08/2019, with a diagnosis of symptomatic anemia along with acute kidney injury. Please refer to the history and physical dated 07/22/2019, by Dr. Hamzah Berry for further details. The patient was admitted to the hospital with a diagnosis of acute kidney injury along with volume overload and generalized anasarca. She was monitored on the medical floor. She was seen by Nephrology as well. She showed good response to gentle diuretics. Her renal function has improved to 1.8 from 2.3. Due to uncontrolled blood pressure, hydralazine dose was increased. She was advised to take clonidine as needed for systolic blood pressure over 180. She appears stable for discharge. FINAL DIAGNOSES: 1. Acute kidney injury on chronic kidney disease stage 3. 2. Hypertension with hypertensive urgency. 3. Obesity with a BMI of 32. 4. Chronic anemia secondary to renal insufficiency. 5. Mild metabolic acidosis secondary to renal insufficiency. 6. Diabetes mellitus type 2. PLAN: Plan of care was discussed with the patient in detail. She stated understanding. Job ID: [id number]
== END 2019-07-25 16:35 | disposition home or self-care (01) | DRG 683 ==
LOC: ERS 09:53 → T4-B 14:05 → OBSVTOIN 07-24 17:13
PROVIDERS: ADMIT Internal Medicine; ATTEND Internal Medicine
DX: N17.9 Acute kidney failure, unspecified (principal); E87.2 Acidosis; K21.9 Gastro-esophageal reflux disease without esophagitis; I16.0 Hypertensive urgency; E88.09 Other disorders of plasma-protein metabolism, not elsewhere classified; E78.5 Hyperlipidemia, unspecified; I12.9 Hypertensive chronic kidney disease with stage 1 through stage 4 chronic kidney disease, or unspecified chronic kidney disease; E11.22 Type 2 diabetes mellitus with diabetic chronic kidney disease; N18.4 Chronic kidney disease, stage 4 (severe); D50.9 Iron deficiency anemia, unspecified; D63.1 Anemia in chronic kidney disease; Z90.710 Acquired absence of both cervix and uterus; R80.9 Proteinuria, unspecified; E87.6 Hypokalemia; E87.70 Fluid overload, unspecified; E66.9 Obesity, unspecified; Z68.32 Body mass index [BMI] 32.0-32.9, adult
CPT/HCPCS: 36415; 36416; 71045; 80048; 80053; 83880; 84484; 85025; 85610; 85730; 93005; 96374; J1940; J2270

== ENCOUNTER 2019-07-30 16:35 | Inpatient (IN) | payer BC, MEDICARE ==
[2019-07-30 18:45] LABS: #Basophils 0.1 thou/uL (0.0-0.2); #Eosinphils 0.1 thou/uL (0.0-0.7); #Lymphocytes 2.2 thou/uL (1.20-3.40); #Monocytes 0.6 thou/uL (0.11-0.59); #Neutrophils 4.1 thou/uL (1.40-6.50); %Basophils 1.1 % (0.0-1.0); %Eosinophils 0.9 % (0.0-10.0); %Lymphocytes 30.8 % (21.0-51.0); %Monocytes 9.1 % (0.0-10.0); Hemoglobin 8.8 g/dL (12.0-16.0); Mean Corpuscular HGB CONC 31.9 g/dL (32.0-36.0); Mean Corpuscular Hemoglobin 23.7 pg (27.0-31.0); Mean Corpuscular Volume 74.2 fL (78.0-98.0); Platelet Count 316 thou/uL (130-400); RBC Distribution Width 16.1 % (11.5-14.5)
[2019-07-30] MEDS ORDERED: Furosemide 20 MG/2 ML VIAL ONE (18:48)
[2019-07-30] MEDS ORDERED: Nitroglycerin 2% Ointment 1 INCH/1 GM Packet ONE (18:48)
[2019-07-30 19:04] LABS: ALT (SGPT) 7 U/L (8-55); AST (SGOT) 20 U/L (5-34); Albumin 2.5 g/dL (3.4-4.8); Alkaline Phosphatase 94 U/L (40-110); Anion Gap 12 mmol/L (10-20); BUN (Urea Nitrogen) 14 mg/dL (9.8-20.1); Bilirubin, Total 0.2 mg/dL (0.2-1.2); Calc. Creatinine Clearance 0 mL/min (70-130); Calcium 8.2 mg/dL (7.8-10.44); Carbon Dioxide 21 mmol/L (23-31); Chloride 109 mmol/L (98-107); Estimated GFR-MDRD 29; Glucose 203 mg/dL (80-115); Potassium 3.9 mmol/L (3.5-5.1); Protein, Total 6.5 g/dL (6.0-8.3); Sodium 138 mmol/L (136-145)
[2019-07-30 19:12] LABS: Elliptocytes SLIGHT = 2-5 cells (100X) (0-1/hpf); Hypochromia SLIGHT = 6-15 cells (100X) (0-5/hpf); MDiff Complete? YES; Microcytosis SLIGHT = 6-15 cells (100X) (0-5/hpf); Platelet Morphology Comment Appears Adequate; Polychromasia SLIGHT = 2-3 cells (100X) (0-2/hpf); Schistocytes SLIGHT = 2-5 cells (100X) (0-1/hpf); Target Cells SLIGHT = 2-5 cells (100X) (0-1/hpf); Tear Drops SLIGHT = 2-5 cells (100X) (0-1/hpf)
--- NOTE | 2019-07-30 19:13 | RAD ---
PORTABLE CHEST ONE VIEW: 07/30/19 at 6:36 p.m. HISTORY: Shortness of breath, hypertension. FINDINGS: Comparison made with exam of 07/22/19. The heart size is normal. The lungs are expanded without lobar consolidation, pneumothoraces or pleur al effusions. IMPRESSION: No acute process. POS: [facility]
[2019-07-30] MEDS ORDERED: Acetaminophen 500 MG TAB ONE (19:46)
[2019-07-30] MEDS ORDERED: Metoclopramide HCl 10 MG/2 ML VIAL ONE (20:51)
[2019-07-30] MEDS ORDERED: diphenhydrAMINE 12.5 MG/5 ML UDCUP ONE (20:51)
[2019-07-30] MEDS ORDERED: diphenhydrAMINE 50 MG/ML VIAL ONE (20:51)
--- NOTE | 2019-07-30 21:40 | CT ---
CT BRAIN WITHOUT CONTRAST: 07/30/19 HISTORY: Headache and dizziness. FINDINGS: Comparison made with exam 01/16/11. No evidence of infarct, hemorrhage, midline shift or abnormal extra-axial fluid collections are seen. The ventricular size is normal and the basilar cisterns patent. The bony calvarium is intact. The v isualized paranasal sinuses and mastoid air cells are well aerated. IMPRESSION: No CT evidence of acute intracranial process. POS: [facility]
[2019-07-30] MEDS ORDERED: HumaLOG 300 UNITS/3 ML VIAL ONE (22:59)
[2019-07-31] MEDS ORDERED: Acetaminophen 325 MG TAB PO PRN (01:23)
[2019-07-31] MEDS ORDERED: Dextrose 50% Abboject 50 ML SYRINGE SLOW IVP PRN (07:54)
[2019-07-31] MEDS ORDERED: Ondansetron ODT 4 MG TAB PO PRN (07:54)
[2019-07-31] MEDS ORDERED: Ondansetron PF 4 MG/2 ML Vial IVP PRN (07:54)
[2019-07-31] MEDS ORDERED: Dextrose 5% in Water 1,000 ML IV PRN (07:54)
[2019-07-31] MEDS ORDERED: HumaLOG 300 UNITS/3 ML VIAL SC PRN (07:54)
[2019-07-31] MEDS ORDERED: hydrALAZINE 20 MG/ML VIAL SLOW IVP PRN (08:03)
--- NOTE | 2019-07-31 08:15 | HP ---
PRIMARY CARE PHYSICIAN: Dr. Robert Rivera. CHIEF COMPLAINT: "I woke up with my head hurting real bad." HISTORY OF PRESENT ILLNESS: Ms. Roberts is a very pleasant 64-year-old female, who has a history of hypertension as well as chronic kidney disease stage 4. She is also diabetic. She was in her usual state of health until early yesterday morning. She says she woke up with her head hurting real bad, and she checked her blood pressure and it was extremely high, it was over 220 systolic. She also noted that her legs were swelling with her right leg being more swollen than the left. She also notes swelling in her upper extremities as well. She noted some dyspnea on exertion, and she also noted some viral-like symptoms such as having some diarrhea and some nausea and vomiting. As a result of her symptoms, she came to the ER and it was found that her blood pressure was extremely elevated at 242/104. Chest x-ray was essentially negative for any signs of any fluid overload, and she is being placed in observation for further evaluation. It is also noted that she was recently seen in the hospital for acute on chronic kidney disease and uncontrolled blood pressure. She was treated, released, and clonidine was added for her to take as needed. The patient tells me she has been on amlodipine before in the past, but this was discontinued due to lower extremity edema. She says that she has taken about 6 of the clonidine that she was prescribed just a few days ago. She does not relate any specific symptoms to the clonidine and says that she may get a little drowsy, but it is not bad and she can work and stay busy and this will alleviate those symptoms. REVIEW OF SYSTEMS: All systems were reviewed and are negative, except for that mentioned in the history of present illness. She also denies any chest pain. No PND. No orthopnea. No palpitations. PAST MEDICAL HISTORY: Significant for chronic kidney disease stage 4, hypertension, anemia of chronic disease as well as iron deficiency anemia, diabetes mellitus type 2, gastroesophageal reflux disease, degenerative joint disease of the hip, and rheumatoid arthritis. PAST SURGICAL HISTORY: She has had a hysterectomy, cataract, and colonoscopy. ALLERGIES: TO SULFA, CODEINE, AND CITRUS. SOCIAL HISTORY: She is a full code. She is a nonsmoker and nondrinker. She is , has 3 children. 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 FAMILY HISTORY: Significant for diabetes and hypertension. CURRENT MEDICATIONS: Include, 1. Clonidine 0.1 mg twice a day as needed. 2. Metoprolol 100 mg b.i.d. 3. Humalog units in the morning and 15 units in the evening. 4. Hydralazine 100 mg p.o. t.i.d. 5. Leflunomide 20 mg daily. PHYSICAL EXAMINATION: GENERAL: She is alert and oriented. She appears to be in no acute distress. CURRENT VITAL SIGNS: Blood pressure is 179/79, heart rate is 78, respiratory rate of 14, temperature is 98.4, and O2 saturations are 96% on room air. HEENT: Pupils are equal, round, and reactive to light. Extraocular muscles are intact. Sclerae anicteric. Throat, there is no erythema, no exudates. NECK: No adenopathy. No bruits. LUNGS: Clear to auscultation. There is no wheezing, no rales, no rhonchi. CARDIOVASCULAR: She has a normal S1 and S2. I do not appreciate an S3 or S4. No murmurs, clicks, or rubs. ABDOMEN: Soft. It is nontender and nondistended. Positive for bowel sounds. No rebound. No guarding. No organomegaly. EXTREMITIES: There is no calf tenderness. No joint effusions. However, she does have significant edema in both of her feet as well as her hands and into her upper and lower extremities. SKIN AND INTEGUMENT: No skin changes. No rashes. LABORATORY RESULTS: Sodium is 138, potassium is 3.9, chloride is 109, CO2 is 21, BUN of 14, creatinine of 2.06, glucose is 203. The white blood cell count is 7, hemoglobin is 8.8, hematocrit is 27.4, and platelet count is 316. IMAGING STUDIES: Chest x-ray was essentially negative for any effusions or infiltrates. Heart size is upper limit of normal. CT of the brain was negative and the chest x-ray is by my reading. Also, she had an EKG, which was read by me as being normal sinus rhythm without any ST-T wave changes. ASSESSMENT: This is a pleasant 64-year-old female, who is being admitted for hypertensive urgency. This is in the setting of chronic kidney disease stage 4. We will place her in observation. She appears to be significantly volume overloaded. She has already been given a dose of IV Lasix in the ER, but continues to have significant edema. We would like to give her another dose of IV Lasix; however, given her chronic kidney disease, we will consult Nephrology to help with diuretic management. We will continue the clonidine, but we will give this schedule and increase the dose to 0.2 mg. I have counseled her on the affects of clonidine, including dizziness, drowsiness, and also the affect of rebound hypertension if it is abruptly withdrawn and she voices understanding. We may need to change her beta-skyler to labetalol, which may have more antihypertensive effect, and we will also place her on a transdermal Nitro-Bid during this time. 1. Diabetes mellitus. We will continue her insulin. She may need to take her own and a sliding scale. We will also check a urine for an albumin-creatinine ratio to see if she is at nephrotic range proteinuria. Unclear if she would benefit from an ATUL inhibitor or if this has been tried in the past and resulted in further renal disease. 2. Chronic anemia. This is likely a combination of both iron deficiency and anemia of chronic disease as well as renal disease. It is noted that she had lab work with iron studies a few months back and her iron level was low. However, her ferritin was extremely elevated, and she had a low total iron binding capacity. Otherwise, further recommendations will be based on the patient's response to therapy. Job ID: [id number]
[2019-07-31 08:34] LABS: Albumin 2.7 g/dL (3.4-4.8); Globulin 3.8 g/dL (2.4-3.5); Protein, Total 6.5 g/dL (6.0-8.3)
[2019-07-31] MEDS: Heparin 5,000 UNITS/ML VIAL SC SCH ×3 (08:47→20:02)
[2019-07-31] MEDS: cloNIDine 0.2 MG TAB PO SCH ×3 (08:47→20:01)
[2019-07-31] MEDS: Famotidine 20 MG TAB PO SCH (08:47)
[2019-07-31] MEDS: hydrALAZINE 25 MG TAB PO SCH ×3 (08:49→21:25)
[2019-07-31] MEDS: Leflunomide 10 mg Tablet PO SCH (08:50)
[2019-07-31] MEDS: Metoprolol Tartrate 100 MG TAB PO SCH ×2 (08:50→21:26)
[2019-07-31] MEDS: HumuLIN 70/30 (300 UNITS/3 ML VIAL) SC SCH ×2 (10:31→21:26)
--- NOTE | 2019-07-31 10:49 | CON ---
DATE OF CONSULTATION: 07/31/2019 CONSULTING PHYSICIAN: Joey Boudreaux MD REASON FOR CONSULTATION: Acute kidney injury and swelling. REASON FOR ADMISSION: Headache and high blood pressure. HISTORY OF PRESENT ILLNESS: This is a 64-year-old female with history of chronic kidney disease, hypertension, anemia, type 2 diabetes, came to the hospital with above complaints and is being admitted. She was recently discharged from the hospital and Dr. Ortiz evaluated. No chest pain or palpitation. No fever or chills. The patient is feeling better. She is complaining of swelling. PAST MEDICAL HISTORY: Positive for CKD stage 4, hypertension, anemia, type 2 diabetes, and GERD. PAST SURGICAL HISTORY: Hysterectomy, cataract, and colonoscopy. MEDICATIONS: Clonidine, metoprolol, Humalog, hydralazine, and leflunomide. ALLERGIES: CODEINE, SULFA, AND CITRUS. SOCIAL HISTORY: Nonsmoker and nondrinker. Works at [employer]. FAMILY HISTORY: Positive for diabetes and hypertension. REVIEW OF SYSTEMS: CONSTITUTIONAL: Negative for weight loss or gain, ability to conduct usual activities. SKIN: Negative for rash, itching. EYES: Negative for double vision, pain. ENT/MOUTH: Negative for nose bleeding, neck stiffness, pain, tenderness. CARDIOVASCULAR: Negative for palpitations, dyspnea on exertion, orthopnea. RESPIRATORY: Negative for shortness of breath, wheezing, cough, hemoptysis, fever or night sweats. GASTROINTESTINAL: Negative for poor appetite, abdominal pain, heartburn, nausea, vomiting, constipation, or diarrhea. GENITOURINARY: Negative for urgency, frequency, dysuria, nocturia. MUSCULOSKELETAL: Negative for pain, swelling. NEUROLOGIC/PSYCHIATRIC: Negative for anxiety, depression. ALLERGY/IMMUNOLOGIC: Negative for skin rash, bleeding tendency. PHYSICAL EXAMINATION: GENERAL: This is a well-built female, in no apparent distress. VITAL SIGNS: Temperature 98.6, pulse 85 respiratory rate 18, blood pressure 174/79. HEENT: Atraumatic, normocephalic. Oral mucosa moist. NECK: Supple. CV: S1 and S2. Rate and rhythm regular. RESPIRATORY: Clear. GI: Abdomen is soft. MUSCULOSKELETAL: 1+ edema. DERMATOLOGIC: No skin rash. NEUROLOGIC: Alert and awake. PSYCHIATRIC: Mood and affect normal. LABORATORY DATA: Hemoglobin is 8.8, potassium 3.9, BUN is 14, and creatinine is 2.0. ASSESSMENT AND PLAN: 1. Acute kidney injury on chronic kidney disease stage 4, stable. We will monitor. 2. Acidosis. 3. Proteinuria. 4. History of diabetes. 5. Hypoalbuminemia. 6. Anemia. PLAN: The patient might benefit from renal biopsy, maybe as outpatient once the blood pressure is controlled and we will continue to follow. Continue supportive care. We will follow. Thank you for the consult. Job ID: [id number]
[2019-07-31 13:52] LABS: Creatinine, Urine 132.85 mg/dL (47-110)
[2019-07-31 13:57] LABS: Microalbumin Urine Greater than 200.0 mg/dL (0.5-50.0)
[2019-07-31] MEDS ORDERED: Nitroglycerin 2% Ointment 1 INCH/1 GM Packet TOP SCH (14:00)
[2019-07-31] MEDS: HumaLOG 300 UNITS/3 ML VIAL SC PRN (18:02)
[2019-08-01 04:56] LABS: #Basophils 0.1 thou/uL (0.0-0.2); #Eosinphils 0.1 thou/uL (0.0-0.7); #Lymphocytes 2.2 thou/uL (1.20-3.40); #Monocytes 0.8 thou/uL (0.11-0.59); #Neutrophils 3.3 thou/uL (1.40-6.50); %Basophils 0.8 % (0.0-1.0); %Eosinophils 1.4 % (0.0-10.0); %Lymphocytes 34.6 % (21.0-51.0); %Monocytes 12.1 % (0.0-10.0); Hemoglobin 8.3 g/dL (12.0-16.0); Mean Corpuscular HGB CONC 31.2 g/dL (32.0-36.0); Mean Corpuscular Hemoglobin 23.4 pg (27.0-31.0); Mean Platelet Volume 7.4 fL (7.4-10.4); Platelet Count 338 thou/uL (130-400); RBC Distribution Width 16.1 % (11.5-14.5); Red Blood Cell (RBC) Count 3.56 mill/uL (4.20-5.40); White Blood Cell (WBC) Count 6.4 thou/uL (4.8-10.8)
[2019-08-01 05:15] LABS: Anion Gap 11 mmol/L (10-20); BUN (Urea Nitrogen) 14 mg/dL (9.8-20.1); Calc. Creatinine Clearance 31 mL/min (70-130); Calcium 7.9 mg/dL (7.8-10.44); Carbon Dioxide 25 mmol/L (23-31); Chloride 110 mmol/L (98-107); Estimated GFR-MDRD 31; Glucose 64 mg/dL (80-115); Potassium 3.5 mmol/L (3.5-5.1); Sodium 142 mmol/L (136-145)
[2019-08-01] MEDS: Leflunomide 10 mg Tablet PO SCH (08:25)
[2019-08-01] MEDS: Metoprolol Tartrate 100 MG TAB PO SCH (08:26)
[2019-08-01] MEDS: cloNIDine 0.2 MG TAB PO SCH ×3 (08:26→21:18)
[2019-08-01] MEDS: Famotidine 20 MG TAB PO SCH (08:26)
[2019-08-01] MEDS: hydrALAZINE 25 MG TAB PO SCH ×3 (08:28→21:16)
[2019-08-01] MEDS: Heparin 5,000 UNITS/ML VIAL SC SCH ×3 (08:44→21:16)
[2019-08-01] MEDS: HumuLIN 70/30 (300 UNITS/3 ML VIAL) SC SCH ×2 (08:45→21:16)
--- NOTE | 2019-08-01 08:50 | PRG ---
DATE OF SERVICE: 08/01/2019 SUBJECTIVE: Patient was seen and examined at bedside and overnight events noted. Patient denies any shortness of breath or chest pain or palpitation. No history of nausea or vomiting or diarrhea or fever or chills or cramps. OBJECTIVE: GENERAL: This is a well-built female in no apparent distress. VITAL SIGNS: Temperature 98.6. Heart rate 72. Respiratory rate 20. Blood pressure 192/77. HEENT: Atraumatic, normocephalic. Oral mucosa is moist NECK: Supple. CARDIOVASCULAR: S1, S2 heard. Rate and rhythm regular. RESPIRATORY: Clear to auscultation. GASTROINTESTINAL: Abdomen is soft. MUSCULOSKELETAL: No tenderness. No edema. DERMATOLOGIC: No skin rash. NEUROLOGIC: Alert and awake and oriented X3. No focal neurologic deficits. Moving all the extremities. PSYCHIATRIC: Mood and affect normal. LABORATORY DATA: Potassium is 3.5, BUN is 14, and creatinine is 1.9. ASSESSMENT AND PLAN: 1. Acute kidney injury on chronic kidney disease stage 4. We will follow. 2. Edema. We will add diuretics. 3. History of hypertension. We will add diuretic. 4. History of diabetes with proteinuria. 5. Proteinuria most likely secondary to diabetic nephropathy. 6. Diabetic nephropathy. 7. Anemia of chronic disease. Plan is to add diuretics and we will follow. Job ID: [id number]
[2019-08-01] MEDS: Furosemide 20 MG TAB PO SCH (09:40)
--- NOTE | 2019-08-01 14:31 | PDOC.HOSPP ---
- Subjective Encounter Date: 08/01/19 Encounter Time: 14:29 Subjective: Ms. Roberts was seen today in follow-up of hypertensive urgency. She says the headache is better and now about a 5/10. She notes some abdominal soreness after eating, but the nausea and diarrhea has resolved. - Objective Vital Signs & Weight: Vital Signs (12 hours) Temp Pulse Resp BP BP Pulse Ox 08/01/19 11:35 98.4 F 78 16 156/72 H 96 08/01/19 08:28 72 08/01/19 08:26 192/77 H 08/01/19 07:24 98.6 F 72 20 192/77 H 96 08/01/19 04:14 98.5 F 73 18 166/79 H 97 Weight Admit Weight 147 lb 11.2 oz Weight 147 lb 11.2 oz I&O: 07/31/19 08/01/19 08/02/19 06:59 06:59 06:59 Intake Total 800 1520 480 Output Total 300 1300 Balance 500 220 480 Result Diagrams: 08/01/19 04:44 08/01/19 04:44 Additional Labs: Accuchecks 08/01/19 08/01/19 07/31/19 10:39 05:49 20:29 POC Glucose 97 73 160 H 07/31/19 16:26 POC Glucose 224 H Hospitalist ROS - Medication Medications: Active Medications Generic Name Dose Route Start Last Admin Trade Name Taiwoq PRN Reason Stop Dose Admin Clonidine 0.1 mg 07/31/19 21:00 08/01/19 08:26 Catapres PO 0.1 mg TID SHO Administration Famotidine 20 mg 07/31/19 09:00 08/01/19 08:26 Pepcid PO 20 mg DAILY SHO Administration Furosemide 20 mg 08/01/19 09:00 08/01/19 09:40 Lasix PO 20 mg DAILY SHO Administration Heparin Sodium (Porcine) 5,000 units 07/31/19 09:00 08/01/19 08:44 Heparin SC 5,000 units TID SHO Administration Hydralazine HCl 100 mg 07/31/19 09:00 08/01/19 08:28 Apresoline PO 100 mg TID SHO Administration Insulin Human Isoph/Insulin Regular 15 units 07/31/19 21:00 07/31/19 21:26 Humulin 70/30 SC 15 unit HS SHO Administration Insulin Human Isoph/Insulin Regular 40 units 07/31/19 08:00 08/01/19 08:45 Humulin 70/30 SC 40 unit QAM-WM SHO Administration Insulin Human Lispro 0 units 07/31/19 07:54 07/31/19 18:02 Humalog SC 4 unit .MODERATE SLIDING SC PRN Administration Moderate Correctional Scale Leflunomide 20 mg 07/31/19 09:00 08/01/19 08:25 Arava PO 20 mg DAILY SHO Administration Pantoprazole Sodium 40 mg 07/31/19 09:00 08/01/19 08:26 Protonix PO 40 mg BID SHO Administration - Exam Eye: PERRL Heart: RRR, no murmur, no gallops, no rubs, normal peripheral pulses Respiratory: CTAB, no wheezes, no rales, no ronchi, normal chest expansion Gastrointestinal: soft, non-tender, non-distended, normal bowel sounds Extremities: 1+ LE edema (+ edema in both hands and feet, but much improved from yesterday) Hosp A/P (1) Hypertensive urgency Code(s): I16.0 - HYPERTENSIVE URGENCY Status: Acute (2) Chronic kidney disease, stage 4 (severe) Code(s): N18.4 - CHRONIC KIDNEY DISEASE, STAGE 4 (SEVERE) Status: Acute (3) DM2 (diabetes mellitus, type 2) Status: Chronic (4) GERD (gastroesophageal reflux disease) Code(s): K21.9 - GASTRO-ESOPHAGEAL REFLUX DISEASE WITHOUT ESOPHAGITIS Status: Chronic - Plan * Hypertensive Urgency- will change Metoprolol to Labetolol * Continue Lasix as needed * Will check her renal function in the AM * Abdominal soreness after eating- this could be due to viral gastroenteritis- she may benefit from a short course of reglan * Will change her status to inpatient, due to daily titration of medication, and co- morbid conditions of advanced kidney injury, and the need to monitor renal function closely while making medication adjustments.
[2019-08-01] MEDS: Metoclopramide HCl 10 MG TAB PO SCH ×2 (17:44→21:18)
[2019-08-01] MEDS: Labetalol 100 MG TAB PO SCH (21:17)
[2019-08-02 06:22] LABS: Anion Gap 10 mmol/L (10-20); BUN (Urea Nitrogen) 15 mg/dL (9.8-20.1); Calc. Creatinine Clearance 30 mL/min (70-130); Calcium 7.8 mg/dL (7.8-10.44); Carbon Dioxide 25 mmol/L (23-31); Chloride 109 mmol/L (98-107); Estimated GFR-MDRD 30; Glucose 85 mg/dL (80-115); Potassium 3.2 mmol/L (3.5-5.1); Sodium 141 mmol/L (136-145)
[2019-08-02] MEDS ORDERED: Potassium Chloride 20 MEQ TAB PO SCH (08:00)
[2019-08-02] MEDS: Famotidine 20 MG TAB PO SCH (08:51)
[2019-08-02] MEDS: cloNIDine 0.2 MG TAB PO SCH ×3 (08:51→20:09)
[2019-08-02] MEDS: Labetalol 100 MG TAB PO SCH ×2 (08:52→20:08)
[2019-08-02] MEDS: hydrALAZINE 25 MG TAB PO SCH ×3 (08:52→20:08)
[2019-08-02] MEDS: Furosemide 20 MG TAB PO SCH (08:52)
[2019-08-02] MEDS: Leflunomide 10 mg Tablet PO SCH (08:53)
[2019-08-02] MEDS: Heparin 5,000 UNITS/ML VIAL SC SCH ×3 (08:55→20:07)
[2019-08-02] MEDS: HumuLIN 70/30 (300 UNITS/3 ML VIAL) SC SCH ×2 (08:56→20:14)
[2019-08-02] MEDS: Metoclopramide HCl 10 MG TAB PO SCH ×2 (08:56→12:06)
[2019-08-02] MEDS: Acetaminophen 325 MG TAB PO PRN (10:02)
--- NOTE | 2019-08-02 11:39 | PRG ---
DATE OF SERVICE: 08/02/2019 SUBJECTIVE: A 64-year-old female, being seen for acute kidney injury. The patient denied any nausea, vomiting, or chest pain. OBJECTIVE: See above. Awake, alert, in no acute distress. VITAL SIGNS: Afebrile, pulse 75, breathing 16, blood pressure 143/65. GENERAL APPEARANCE AND MENTAL STATUS: Fair. HEAD/NECK: Normocephalic. Atraumatic. EYES: EOMI. No deformity. EARS: Clear. No ulcers. NOSE: Intact. No lesions. MOUTH: Clear. No discharge. THROAT: Clear. No exudate. LUNGS: Clear. No crackles. CARDIAC: S1, S2. No rub. ABDOMEN: Benign. Bowel sounds positive. GENITALIA/RECTUM: Hodges absent. BACK/EXTREMITIES: Edema 0+. NEUROLOGICAL: Alert and motor intact. SKIN: LYMPHATICS: LABORATORY DATA: Reviewed. ASSESSMENT AND PLAN: 1. Acute kidney injury with chronic kidney disease with nephrotic range proteinuria. We will recommend a kidney biopsy in the morning. 2. Hypertension, continue titrate current medications. 3. Chronic kidney disease, stage 4, stable. 4. Hypertension, stable. 5. Diabetes mellitus, stable. Medications based on GFR appropriate. Job ID: [id number]
[2019-08-02] MEDS ORDERED: HYDROcodone/Acetaminophen 5/325 mg Tablet PO SCH (11:45)
[2019-08-02] MEDS: HumaLOG 300 UNITS/3 ML VIAL SC PRN (12:10)
--- NOTE | 2019-08-02 15:25 | PDOC.HOSPP ---
- Subjective Encounter Date: 08/02/19 Encounter Time: 15:24 Subjective: Ms. Roberts was seen today in follow-up of hypertensive urgency and right upper extremity swelling. - Objective Vital Signs & Weight: Vital Signs (12 hours) Temp Pulse Resp BP BP Pulse Ox 08/02/19 11:47 98.7 F 100 16 118/56 L 95 08/02/19 08:52 93 170/78 H 08/02/19 08:51 170/78 H 08/02/19 07:52 99 F 93 16 170/78 H 96 08/02/19 03:49 98.1 F 87 18 135/63 95 Weight Admit Weight 147 lb 11.2 oz Weight 149 lb 6.4 oz I&O: 08/01/19 08/02/19 08/03/19 06:59 06:59 06:59 Intake Total 1520 480 Output Total 1300 Balance 220 480 Result Diagrams: 08/01/19 04:44 08/02/19 05:33 Additional Labs: Accuchecks 08/02/19 08/01/19 08/01/19 10:41 21:07 16:44 POC Glucose 173 H 155 H 148 H Hospitalist ROS - Medication Medications: Active Medications Generic Name Dose Route Start Last Admin Trade Name Freq PRN Reason Stop Dose Admin Acetaminophen 650 mg 07/31/19 07:54 08/02/19 10:02 Tylenol PO 650 mg Q4H PRN Administration Headache/Fever/Mild Pain (1-3) Clonidine 0.1 mg 07/31/19 21:00 08/02/19 08:51 Catapres PO 0.1 mg TID SHO Administration Famotidine 20 mg 07/31/19 09:00 08/02/19 08:51 Pepcid PO 20 mg DAILY SHO Administration Furosemide 20 mg 08/01/19 09:00 08/02/19 08:52 Lasix PO 20 mg DAILY SHO Administration Heparin Sodium (Porcine) 5,000 units 07/31/19 09:00 08/02/19 08:55 Heparin SC 5,000 units TID SHO Administration Hydralazine HCl 100 mg 07/31/19 09:00 08/02/19 08:52 Apresoline PO 100 mg TID SHO Administration Insulin Human Isoph/Insulin Regular 15 units 07/31/19 21:00 08/01/19 21:16 Humulin 70/30 SC 15 unit HS SHO Administration Insulin Human Isoph/Insulin Regular 40 units 07/31/19 08:00 08/02/19 08:56 Humulin 70/30 SC 40 unit QAM-WM SHO Administration Insulin Human Lispro 0 units 07/31/19 07:54 08/02/19 12:10 Humalog SC 2 unit .MODERATE SLIDING SC PRN Administration Moderate Correctional Scale Labetalol HCl 200 mg 08/01/19 21:00 08/02/19 08:52 Normodyne PO 200 mg BID SHO Administration Leflunomide 20 mg 07/31/19 09:00 08/02/19 08:53 Arava PO 20 mg DAILY SHO Administration Metoclopramide HCl 10 mg 08/01/19 17:00 08/02/19 12:06 Reglan PO 10 mg ACHS SHO Administration Pantoprazole Sodium 40 mg 07/31/19 09:00 08/02/19 08:53 Protonix PO 40 mg BID SHO Administration - Exam Eye: PERRL Heart: RRR, no murmur, no gallops, no rubs, normal peripheral pulses Respiratory: CTAB, no wheezes, no rales, no ronchi, normal chest expansion Gastrointestinal: soft, non-tender, non-distended, normal bowel sounds, no palpable masses, no hepatomegaly Extremities: 1+ LE edema (+ swelling of both lower extremities, and new right upper extremity swelling, no warmth or erythema) Hosp A/P (1) Hypertensive urgency Code(s): I16.0 - HYPERTENSIVE URGENCY Status: Acute (2) Chronic kidney disease, stage 4 (severe) Code(s): N18.4 - CHRONIC KIDNEY DISEASE, STAGE 4 (SEVERE) Status: Acute (3) DM2 (diabetes mellitus, type 2) Status: Chronic (4) GERD (gastroesophageal reflux disease) Code(s): K21.9 - GASTRO-ESOPHAGEAL REFLUX DISEASE WITHOUT ESOPHAGITIS Status: Chronic - Plan * Hypertensive Urgency- blood pressure is labile, but much improved * Right upper extremity edema- will check an ultrasound, and continue warm compress as needed * Continue Lasix as needed * Chronic kidney disease- stable- plan is for renal biopsy tomorrow * Will change reglan to as needed * Replace potassium
--- NOTE | 2019-08-02 16:29 | ULT ---
Exam: Right upper extremity venous ultrasound with Doppler HISTORY: Swelling COMPARISON: none TECHNIQUE: Grayscale, color flow, Doppler imaging and spectral waveform is performed in the right upp er kidney venous system FINDINGS: Compressibility and patency in the internal jugular vein Flow in the subclavian vein Compressibility and patency of the axillary vein There is compressibility and flow in the brachial vein, basilic vein, radial vein and ulnar vein. The re is echogenic material with lack of compressibility and absence of flow in the cephalic vein at the level of the cubital fossa. IMPRESSION: Cephalic vein thrombus at the level antecubital fossa. CODE T
[2019-08-02] MEDS ORDERED: HYDROcodone/Acetaminophen 5/325 mg Tablet PO PRN (19:25)
[2019-08-02] MEDS: HYDROcodone/Acetaminophen 5/325 mg Tablet PO PRN (20:07)
[2019-08-03 04:46] LABS: #Eosinphils 0.1 thou/uL (0.0-0.7); #Lymphocytes 1.6 thou/uL (1.20-3.40); #Monocytes 1.2 thou/uL (0.11-0.59); #Neutrophils 5.8 thou/uL (1.40-6.50); %Basophils 0.5 % (0.0-1.0); %Eosinophils 0.6 % (0.0-10.0); %Monocytes 13.4 % (0.0-10.0); %Neutrophils 67.5 % (42.0-75.0); Hemoglobin 7.7 g/dL (12.0-16.0); Mean Corpuscular HGB CONC 31.8 g/dL (32.0-36.0); Mean Corpuscular Hemoglobin 23.5 pg (27.0-31.0); Mean Corpuscular Volume 73.9 fL (78.0-98.0); Mean Platelet Volume 7.5 fL (7.4-10.4); Platelet Count 273 thou/uL (130-400); RBC Distribution Width 16.2 % (11.5-14.5); Red Blood Cell (RBC) Count 3.27 mill/uL (4.20-5.40); White Blood Cell (WBC) Count 8.6 thou/uL (4.8-10.8)
[2019-08-03 04:51] LABS: Prothrombin Time 12.7 SEC (12.0-14.7)
[2019-08-03 04:52] LABS: PTT 47.1 SEC (22.9-36.1)
[2019-08-03 05:09] LABS: Anion Gap 14 mmol/L (10-20); BUN (Urea Nitrogen) 16 mg/dL (9.8-20.1); Calc. Creatinine Clearance 28 mL/min (70-130); Calcium 7.8 mg/dL (7.8-10.44); Carbon Dioxide 22 mmol/L (23-31); Chloride 105 mmol/L (98-107); Estimated GFR-MDRD 28; Glucose 150 mg/dL (80-115); Potassium 3.8 mmol/L (3.5-5.1); Sodium 137 mmol/L (136-145)
[2019-08-03] MEDS: HumuLIN 70/30 (300 UNITS/3 ML VIAL) SC SCH ×2 (07:34→21:20)
[2019-08-03] MEDS: Heparin 5,000 UNITS/ML VIAL SC SCH ×3 (07:34→21:19)
[2019-08-03] MEDS: cloNIDine 0.2 MG TAB PO SCH ×3 (08:04→21:12)
[2019-08-03] MEDS: Famotidine 20 MG TAB PO SCH (08:04)
[2019-08-03] MEDS: hydrALAZINE 25 MG TAB PO SCH ×3 (08:04→21:11)
[2019-08-03] MEDS: Labetalol 100 MG TAB PO SCH ×2 (08:05→21:17)
[2019-08-03] MEDS: HYDROcodone/Acetaminophen 5/325 mg Tablet PO PRN ×2 (08:08→21:13)
[2019-08-03] MEDS: Leflunomide 10 mg Tablet PO SCH ×2 (09:00→14:13)
[2019-08-03] MEDS ORDERED: Midazolam HCl 2 mg/2 ml Vial ONE (10:27)
[2019-08-03] MEDS ORDERED: Fentanyl 100 MCG/2 ML VIAL ONE (10:27)
[2019-08-03] MEDS ORDERED: Sodium Bicarbonate 2.5 MEQ/5 ML VIAL ONE (10:28)
--- NOTE | 2019-08-03 11:29 | CT ---
CT-guided random renal biopsy HISTORY: Proteinuria. FINDINGS: After explaining the procedure and answering all questions, limited CT imaging of the abdom en was performed with patient in prone position. Sterile technique, buffered local anesthesia, CT guidance, and a right posterior approach were used to carefully advance a 17-gauge trocar needle to t he superficial lateral cortex at the avascular zone near the inferior pole of the right kidney. Position was confirmed with CT. A total of 3 18-gauge core biopsy specimens were obtained and submitted to Dr. Garcia from pathology w ho confirmed specimen adequacy. Needle was removed. No evidence of complication. Patient tolerated the procedure well and was returne d in unchanged condition. IMPRESSION: Technically successful CT-guided random renal biopsy. Pathology pending.
--- NOTE | 2019-08-03 13:58 | PRG ---
DATE OF SERVICE: 08/03/2019 SUBJECTIVE: A 64-year-old female being seen for acute kidney injury. The patient denied nausea, vomiting, or chest pain. OBJECTIVE: CONSTITUTIONAL: The patient is awake and alert. VITAL SIGNS: Afebrile, pulse 76, breathing 16, and blood pressure 119/58. GENERAL APPEARANCE AND MENTAL STATUS: Fair. HEAD/NECK: Normocephalic. Atraumatic. EYES: EOMI. No deformity. EARS: Clear. No ulcers. NOSE: Intact. No lesions. MOUTH: Clear. No discharge. THROAT: Clear. No exudate. LUNGS: Clear. No crackles. CARDIAC: S1, S2. No rub. ABDOMEN: Benign. Bowel sounds positive. GENITALIA/RECTUM: Hodges absent. BACK/EXTREMITIES: Edema 0+. NEUROLOGICAL: Alert and motor intact. SKIN: LYMPHATICS: LABORATORY DATA: Reviewed. ASSESSMENT AND PLAN: 1. Acute kidney injury with chronic kidney disease, likely due to disease. Renal biopsy is pending. 2. Hypertension, stable. 3. Anemia. We would recommend transfusion and checking hemoglobin in the morning. The patient will need some sort of Hematology followup for outpatient Epogen therapy. Medication based on GFR appropriate. Job ID: [id number]
--- NOTE | 2019-08-03 14:08 | PDOC.HOSPP ---
- Subjective Encounter Date: 08/03/19 Encounter Time: 14:05 Subjective: Ms. Roberts was seen today in follow-up of hypertensive urgency, and chronic kidney disease. She notes some continued pain in the right upper extremity, as well as some swelling, but it has improved. - Objective Vital Signs & Weight: Vital Signs (12 hours) Temp Pulse Resp BP Pulse Ox 08/03/19 11:34 98.6 F 95 18 119/58 L 95 08/03/19 08:05 110 H 08/03/19 08:04 110 H 08/03/19 07:50 99.5 F 106 H 16 175/79 H 96 08/03/19 03:51 99.4 F 110 H 22 H 135/62 95 Weight Admit Weight 147 lb 11.2 oz Weight 149 lb 6.4 oz I&O: 08/02/19 08/03/19 08/04/19 06:59 06:59 06:59 Intake Total 480 Balance 480 Result Diagrams: 08/03/19 04:31 08/03/19 04:31 Additional Labs: Accuchecks 08/03/19 08/03/19 08/03/19 11:41 02:09 01:38 POC Glucose 212 H 90 41 L* 08/02/19 08/02/19 20:12 16:31 POC Glucose 128 H 87 Hospitalist ROS - Medication Medications: Active Medications Generic Name Dose Route Start Last Admin Trade Name Freq PRN Reason Stop Dose Admin Acetaminophen 650 mg 07/31/19 07:54 08/02/19 10:02 Tylenol PO 650 mg Q4H PRN Administration Headache/Fever/Mild Pain (1-3) Hydrocodone Bitart/Acetaminophen 1 tab 08/02/19 19:26 08/03/19 08:08 [place] 5/325 PO 1 tab Q6H PRN Administration Pain 4-6 Clonidine 0.1 mg 07/31/19 21:00 08/03/19 08:04 Catapres PO 0.1 mg TID SHO Administration Famotidine 20 mg 07/31/19 09:00 08/03/19 08:04 Pepcid PO 20 mg DAILY SHO Administration Heparin Sodium (Porcine) 5,000 units 07/31/19 09:00 08/03/19 07:34 Heparin SC Not Given TID SHO Hydralazine HCl 100 mg 07/31/19 09:00 08/03/19 08:04 Apresoline PO 100 mg TID SHO Administration Insulin Human Isoph/Insulin Regular 15 units 07/31/19 21:00 08/02/19 20:14 Humulin 70/30 SC 15 unit HS SHO Administration Insulin Human Isoph/Insulin Regular 40 units 07/31/19 08:00 08/03/19 07:34 Humulin 70/30 SC Not Given QAM-WM SHO Insulin Human Lispro 0 units 07/31/19 07:54 08/02/19 12:10 Humalog SC 2 unit .MODERATE SLIDING SC PRN Administration Moderate Correctional Scale Labetalol HCl 200 mg 08/01/19 21:00 08/03/19 08:05 Normodyne PO 200 mg BID SHO Administration Ondansetron HCl 4 mg 07/31/19 07:54 08/03/19 08:09 Zofran Odt PO 4 mg Q6H PRN Administration Nausea/Vomiting Pantoprazole Sodium 40 mg 07/31/19 09:00 08/03/19 08:05 Protonix PO 40 mg BID SHO Administration - Exam Eye: PERRL Heart: RRR, no murmur, no gallops, no rubs, normal peripheral pulses Respiratory: CTAB, no wheezes, no rales, no ronchi, normal chest expansion Gastrointestinal: soft, non-tender, non-distended, normal bowel sounds Extremities: no cyanosis, no clubbing, 1+ LE edema Hosp A/P (1) Hypertensive urgency Code(s): I16.0 - HYPERTENSIVE URGENCY Status: Acute (2) Chronic kidney disease, stage 4 (severe) Code(s): N18.4 - CHRONIC KIDNEY DISEASE, STAGE 4 (SEVERE) Status: Acute (3) DM2 (diabetes mellitus, type 2) Status: Chronic (4) GERD (gastroesophageal reflux disease) Code(s): K21.9 - GASTRO-ESOPHAGEAL REFLUX DISEASE WITHOUT ESOPHAGITIS Status: Chronic - Plan * Hypertensive Urgency- blood pressure continues to improve * Right upper extremity edema- she has a superficial thrombophlebitis- continue symptom control * Will hold Lasix * Chronic kidney disease- renal biopsy has been done * Hopefully home tomorrow
[2019-08-03 14:58] VITALS: BMI 28.2
[2019-08-03] MEDS: HumaLOG 300 UNITS/3 ML VIAL SC PRN (15:45)
[2019-08-03] MEDS: Metoclopramide HCl 10 MG TAB PO PRN (21:15)
[2019-08-04 06:00] LABS: Hemoglobin 7.4 g/dL (12.0-16.0)
[2019-08-04 06:27] LABS: Anion Gap 15 mmol/L (10-20); BUN (Urea Nitrogen) 15 mg/dL (9.8-20.1); Calc. Creatinine Clearance 29 mL/min (70-130); Calcium 7.9 mg/dL (7.8-10.44); Carbon Dioxide 22 mmol/L (23-31); Chloride 105 mmol/L (98-107); Estimated GFR-MDRD 29; Glucose 95 mg/dL (80-115); Potassium 3.5 mmol/L (3.5-5.1); Sodium 138 mmol/L (136-145)
[2019-08-04] MEDS: HumuLIN 70/30 (300 UNITS/3 ML VIAL) SC SCH ×2 (09:28→19:50)
[2019-08-04] MEDS: hydrALAZINE 25 MG TAB PO SCH ×3 (09:28→19:46)
[2019-08-04] MEDS: Leflunomide 10 mg Tablet PO SCH (09:29)
[2019-08-04] MEDS: Famotidine 20 MG TAB PO SCH (09:29)
[2019-08-04] MEDS: Heparin 5,000 UNITS/ML VIAL SC SCH ×3 (09:31→19:50)
[2019-08-04] MEDS: cloNIDine 0.2 MG TAB PO SCH ×4 (09:31→19:47)
--- NOTE | 2019-08-04 11:18 | PRG ---
DATE OF SERVICE: 08/04/2019 SUBJECTIVE: A 64-year-old female, being seen for acute kidney injury. The patient denied nausea, vomiting, or chest pain. OBJECTIVE: CONSTITUTIONAL: The patient is awake and alert. VITAL SIGNS: Pulse 98, breathing 16, and blood pressure 122/65. GENERAL APPEARANCE AND MENTAL STATUS: Fair. HEAD/NECK: Normocephalic. Atraumatic. EYES: EOMI. No deformity. EARS: Clear. No ulcers. NOSE: Intact. No lesions. MOUTH: Clear. No discharge. THROAT: Clear. No exudate. LUNGS: Clear. No crackles. CARDIAC: S1, S2. No rub. ABDOMEN: Benign. Bowel sounds positive. GENITALIA/RECTUM: Hodges absent. BACK/EXTREMITIES: Edema 0+. NEUROLOGICAL: Alert and motor intact. SKIN: LYMPHATICS: LABORATORY DATA: Labs show creatinine is 2.1. Hemoglobin is 7.4. ASSESSMENT AND PLAN: 1. Acute kidney injury with chronic kidney disease, most likely due to glomerular disease. Renal biopsy is pending. 2. Anemia. We will give Epogen 10,000 units subcu and we would recommend 1 unit of packed red blood cell transfusion as the patient has some dyspnea on exertion. 3. Hypertension, stable. 4. Medication based on GFR appropriate. Job ID: [id number]
[2019-08-04] MEDS: Labetalol 100 MG TAB PO SCH ×2 (11:52→19:46)
[2019-08-04] MEDS: Acetaminophen 325 MG TAB PO PRN (11:52)
--- NOTE | 2019-08-04 14:37 | PDOC.HOSPP ---
- Subjective Encounter Date: 08/04/19 Encounter Time: 14:36 Subjective: Ms. Roberts was seen today in follow-up of hypertensive Urgency. She says she feels a little tired but otherwise no complaints. - Objective Vital Signs & Weight: Vital Signs (12 hours) Temp Pulse Pulse Resp BP BP BP 08/04/19 12:45 99.4 F 98 18 148/74 H 08/04/19 11:52 98 148/74 H 08/04/19 11:46 99.4 F 98 16 148/74 H 08/04/19 09:31 171/72 H 08/04/19 09:28 103 H 171/72 H 08/04/19 08:00 08/04/19 07:38 99.4 F 103 H 16 171/72 H 08/04/19 04:24 99.1 F 98 18 122/65 Pulse Ox 08/04/19 12:45 08/04/19 11:52 08/04/19 11:46 96 08/04/19 09:31 08/04/19 09:28 08/04/19 08:00 96 08/04/19 07:38 96 08/04/19 04:24 94 L Weight Admit Weight 147 lb 11.2 oz Weight 149 lb 6.4 oz I&O: 08/03/19 08/04/19 08/05/19 06:59 06:59 06:59 Intake Total 720 0 Balance 720 0 Result Diagrams: 08/04/19 05:28 08/04/19 05:28 Additional Labs: Accuchecks 08/04/19 08/03/19 08/03/19 04:32 19:29 15:46 POC Glucose 93 207 H 315 H Hospitalist ROS - Medication Medications: Active Medications Generic Name Dose Route Start Last Admin Trade Name Freq PRN Reason Stop Dose Admin Acetaminophen 650 mg 07/31/19 07:54 08/04/19 11:52 Tylenol PO 650 mg Q4H PRN Administration Headache/Fever/Mild Pain (1-3) Hydrocodone Bitart/Acetaminophen 1 tab 08/02/19 19:26 08/03/19 21:13 [place] 5/325 PO 1 tab Q6H PRN Administration Pain 4-6 Clonidine 0.1 mg 07/31/19 21:00 08/04/19 09:31 Catapres PO 0.1 mg TID SHO Administration Famotidine 20 mg 07/31/19 09:00 08/04/19 09:29 Pepcid PO 20 mg DAILY SHO Administration Heparin Sodium (Porcine) 5,000 units 07/31/19 09:00 08/04/19 09:31 Heparin SC 5,000 units TID SHO Administration Hydralazine HCl 100 mg 07/31/19 09:00 08/04/19 09:28 Apresoline PO 100 mg TID SHO Administration Insulin Human Isoph/Insulin Regular 15 units 07/31/19 21:00 08/03/19 21:20 Humulin 70/30 SC 15 unit HS SHO Administration Insulin Human Isoph/Insulin Regular 40 units 07/31/19 08:00 08/04/19 09:28 Humulin 70/30 SC 40 unit QAM-WM SHO Administration Insulin Human Lispro 0 units 07/31/19 07:54 08/03/19 15:45 Humalog SC 8 unit .MODERATE SLIDING SC PRN Administration Moderate Correctional Scale Labetalol HCl 200 mg 08/01/19 21:00 08/04/19 11:52 Normodyne PO 200 mg BID SHO Administration Leflunomide 20 mg 08/03/19 09:00 08/04/19 09:29 Arava PO 20 mg DAILY SHO Administration Metoclopramide HCl 10 mg 08/02/19 15:28 08/03/19 21:15 Reglan PO 10 mg ACHS PRN Administration Nausea/Vomiting Ondansetron HCl 4 mg 07/31/19 07:54 08/03/19 08:09 Zofran Odt PO 4 mg Q6H PRN Administration Nausea/Vomiting Pantoprazole Sodium 40 mg 07/31/19 09:00 08/04/19 09:29 Protonix PO 40 mg BID SHO Administration - Exam Eye: PERRL Heart: RRR, no murmur, no gallops, no rubs, normal peripheral pulses Respiratory: CTAB, no wheezes, no rales, no ronchi, normal chest expansion Gastrointestinal: soft, non-tender, non-distended, normal bowel sounds Extremities: no cyanosis, no edema Hosp A/P (1) Hypertensive urgency Code(s): I16.0 - HYPERTENSIVE URGENCY Status: Acute (2) Chronic kidney disease, stage 4 (severe) Code(s): N18.4 - CHRONIC KIDNEY DISEASE, STAGE 4 (SEVERE) Status: Acute (3) DM2 (diabetes mellitus, type 2) Status: Chronic (4) GERD (gastroesophageal reflux disease) Code(s): K21.9 - GASTRO-ESOPHAGEAL REFLUX DISEASE WITHOUT ESOPHAGITIS Status: Chronic - Plan * Hypertensive Urgency- improved * Right upper extremity edema- she has a superficial thrombophlebitis- continue symptom control * Will hold Lasix * Chronic kidney disease- renal biopsy has been done * Anemia- likely due to chronic kidney disease- agree with transfusion, and she can be discharge home afterwards.
[2019-08-04] MEDS: Metoclopramide HCl 10 MG TAB PO PRN (19:44)
[2019-08-04] MEDS: HYDROcodone/Acetaminophen 5/325 mg Tablet PO PRN (19:45)
[2019-08-05] MEDS: Labetalol 100 MG TAB PO SCH (07:53)
[2019-08-05] MEDS: Leflunomide 10 mg Tablet PO SCH (07:54)
[2019-08-05] MEDS: hydrALAZINE 25 MG TAB PO SCH (07:54)
[2019-08-05] MEDS: Heparin 5,000 UNITS/ML VIAL SC SCH (07:55)
[2019-08-05] MEDS: Famotidine 20 MG TAB PO SCH (07:55)
[2019-08-05] MEDS: cloNIDine 0.2 MG TAB PO SCH (07:56)
[2019-08-05 08:00] VITALS: BP 175/80
[2019-08-05] MEDS: HumuLIN 70/30 (300 UNITS/3 ML VIAL) SC SCH (08:00)
--- NOTE | 2019-08-05 08:46 | PDOC.HOSPP ---
- Subjective Encounter Date: 08/05/19 Encounter Time: 08:44 Subjective: Ms. Roberts preferred to stay over night. She feels better today. - Objective Vital Signs & Weight: Vital Signs (12 hours) Temp Pulse Resp BP BP BP Pulse Ox 08/05/19 07:56 175/80 H 08/05/19 07:54 92 175/80 H 08/05/19 07:53 92 175/80 H 08/05/19 05:15 135/68 08/05/19 04:19 92 186/77 H 08/05/19 04:02 98.5 F 92 20 179/77 H 94 L Weight Admit Weight 147 lb 11.2 oz Weight 149 lb 6.4 oz I&O: 08/04/19 08/05/19 08/06/19 06:59 06:59 06:59 Intake Total 720 850 Balance 720 850 Result Diagrams: 08/04/19 05:28 08/04/19 05:28 Additional Labs: Accuchecks 08/05/19 08/04/19 08/04/19 04:07 19:18 11:52 POC Glucose 103 85 125 H Hospitalist ROS - Medication Medications: Active Medications Generic Name Dose Route Start Last Admin Trade Name Freq PRN Reason Stop Dose Admin Acetaminophen 650 mg 07/31/19 07:54 08/04/19 11:52 Tylenol PO 650 mg Q4H PRN Administration Headache/Fever/Mild Pain (1-3) Hydrocodone Bitart/Acetaminophen 1 tab 08/02/19 19:26 08/04/19 19:45 [place] 5/325 PO 1 tab Q6H PRN Administration Pain 4-6 Clonidine 0.1 mg 07/31/19 21:00 08/05/19 07:56 Catapres PO 0.1 mg TID SHO Administration Famotidine 20 mg 07/31/19 09:00 08/05/19 07:55 Pepcid PO 20 mg DAILY SHO Administration Heparin Sodium (Porcine) 5,000 units 07/31/19 09:00 08/05/19 07:55 Heparin SC Not Given TID SHO Hydralazine HCl 100 mg 07/31/19 09:00 08/05/19 07:54 Apresoline PO 100 mg TID SHO Administration Hydralazine HCl 10 mg 07/31/19 08:03 08/05/19 04:19 Apresoline SLOW IVP 10 mg Q4H PRN Administration SBP > 180 and HR < 70 Insulin Human Isoph/Insulin Regular 15 units 07/31/19 21:00 08/04/19 19:50 Humulin 70/30 SC Not Given HS SHO Insulin Human Isoph/Insulin Regular 40 units 07/31/19 08:00 08/05/19 08:00 Humulin 70/30 SC Not Given QAM-WM SHO Insulin Human Lispro 0 units 07/31/19 07:54 08/03/19 15:45 Humalog SC 8 unit .MODERATE SLIDING SC PRN Administration Moderate Correctional Scale Labetalol HCl 200 mg 08/01/19 21:00 08/05/19 07:53 Normodyne PO 200 mg BID SHO Administration Leflunomide 20 mg 08/03/19 09:00 08/05/19 07:54 Arava PO 20 mg DAILY SHO Administration Metoclopramide HCl 10 mg 08/02/19 15:28 08/04/19 19:44 Reglan PO 10 mg ACHS PRN Administration Nausea/Vomiting Ondansetron HCl 4 mg 07/31/19 07:54 08/03/19 08:09 Zofran Odt PO 4 mg Q6H PRN Administration Nausea/Vomiting Pantoprazole Sodium 40 mg 07/31/19 09:00 08/05/19 07:55 Protonix PO 40 mg BID SHO Administration - Exam Eye: PERRL Heart: RRR, no murmur, no gallops, no rubs, normal peripheral pulses Respiratory: CTAB, no wheezes, no rales, no ronchi, normal chest expansion Gastrointestinal: soft, non-tender, non-distended, normal bowel sounds, no palpable masses, no hepatomegaly Extremities: 1+ LE edema Hosp A/P (1) Hypertensive urgency Code(s): I16.0 - HYPERTENSIVE URGENCY Status: Acute (2) Chronic kidney disease, stage 4 (severe) Code(s): N18.4 - CHRONIC KIDNEY DISEASE, STAGE 4 (SEVERE) Status: Acute (3) DM2 (diabetes mellitus, type 2) Status: Chronic (4) GERD (gastroesophageal reflux disease) Code(s): K21.9 - GASTRO-ESOPHAGEAL REFLUX DISEASE WITHOUT ESOPHAGITIS Status: Chronic - Plan * Hypertensive Urgency- resolved * HTN- blood pressure is a bit labile, but overall improved * Will check a CBC post transfusion for reference- then she can go home
[2019-08-05 08:52] VITALS: TEMP 98.9
[2019-08-05] MEDS ORDERED: EPOETIN ALFA-EPBX (ESRD) 10,000 UNIT/ML VIAL SC SCH (10:00)
--- NOTE | 2019-08-05 10:49 | PRG ---
DATE OF SERVICE: 08/05/2019 SUBJECTIVE: A 64-year-old female, being seen for acute kidney injury with CKD. The patient denied nausea, vomiting, or chest pain. OBJECTIVE: CONSTITUTIONAL: The patient is awake and alert. VITAL SIGNS: Pulse 85, breathing 16, and blood pressure 175/80. GENERAL APPEARANCE AND MENTAL STATUS: Fair. HEAD/NECK: Normocephalic. Atraumatic. EYES: EOMI. No deformity. EARS: Clear. No ulcers. NOSE: Intact. No lesions. MOUTH: Clear. No discharge. THROAT: Clear. No exudate. LUNGS: Clear. No crackles. CARDIAC: S1, S2. No rub. ABDOMEN: Benign. Bowel sounds positive. GENITALIA/RECTUM: Hodges absent. BACK/EXTREMITIES: Edema 0+. NEUROLOGICAL: Alert and motor intact. SKIN: LYMPHATICS: LABORATORY DATA: Reviewed. ASSESSMENT AND PLAN: 1. Chronic kidney disease stage 4 due to diabetic nephropathy based on renal biopsy. We will start low-dose ARB. We will also recommend starting the patient on statin. She said she is already taking one. 2. Anemia, status post transfusion. I would recommend checking hemoglobin. We will give 10,000 units of Epogen. The patient will need to follow up with Hematology for outpatient Epogen therapy. 3. Hypertension. We will start on low-dose ARB. Titrate current medications. 4. Medication based on GFR appropriate. Job ID: [id number]
--- NOTE | 2019-08-06 02:22 | DIS ---
DATE OF ADMISSION: 08/01/2019 DATE OF DISCHARGE: 08/05/2019 PRIMARY CARE PHYSICIAN: Dr. Robert Rivera. DISCHARGE DISPOSITION: Home. DISCHARGE DIAGNOSES: 1. Hypertensive urgency. 2. Diabetic nephropathy. 3. Fwjyy-[id number]-btajwee kidney disease, stage 4 secondary to #2. 4. Diabetes mellitus, type 2. 5. Iron deficiency anemia as well as anemia and renal disease. 6. Gastroesophageal reflux disease. 7. Rheumatoid arthritis. DISCHARGE MEDICATIONS: Include: 1. Labetalol 200 mg p.o. twice daily. 2. Hydralazine 100 mg t.i.d. 3. Clonidine 0.1 mg p.o. t.i.d. 4. Omeprazole 20 mg twice daily. 5. Leflunomide 20 mg daily. 6. Insulin 50-50, 40 units in the a.m. and 15 units in the p.m. 7. The patient will be started on losartan 25 mg daily in the outpatient setting. CODE STATUS: Full code. ALLERGIES: TO SULFA, CODEINE, AND CITRIC ACID. HOSPITAL COURSE: Ms. Roberts is a pleasant 64-year-old female, who presented to the emergency room complaining of severe headache and lower extremity edema. When she was evaluated in the ER, she was found to have an extremely elevated blood pressure of approximately 220 systolic. She has had difficulty with managing her blood pressure with her current medications. Due to this, she was admitted for hypertensive urgency. Her button sawyer was consulted due to concerns for worsening kidney function, if diuretics were used. However, she did have significant edema and she was placed on a short course of Lasix. She diuresed well with resolution of most of the edema. She had good improvement with her blood pressure once the metoprolol was changed to labetalol and clonidine was given scheduled instead of p.r.n. A renal biopsy was done during her hospital stay demonstrating diabetic nephropathy. The plan will be to place her on a low-dose angiotensin receptor skyler, likely 25 mg of losartan. This will be done under the direction of Dr. Ortiz in the outpatient setting. The patient is to follow up with Dr. Ortiz as instructed and also with her primary care physician in 1 to 2 weeks. Job ID: [id number]
[2019-08-06] MEDS ORDERED: Losartan 25 MG TAB PO SCH (09:00)
== END 2019-08-05 11:19 | disposition home or self-care (01) | DRG 305 ==
LOC: ERS 16:35 → 2SW 07-31 01:07 → OBSVTOIN 08-01 14:20 → T4-A 08-03 16:45
PROVIDERS: ADMIT Family Medicine; ATTEND Family Medicine
PROC: 0TB03ZX Excision of Right Kidney, Percutaneous Approach, Diagnostic (ICD-10-PCS; principal; 2019-08-03)
DX: I16.0 Hypertensive urgency (principal); N18.4 Chronic kidney disease, stage 4 (severe); N17.9 Acute kidney failure, unspecified; E87.2 Acidosis; E11.22 Type 2 diabetes mellitus with diabetic chronic kidney disease; I12.9 Hypertensive chronic kidney disease with stage 1 through stage 4 chronic kidney disease, or unspecified chronic kidney disease; E11.21 Type 2 diabetes mellitus with diabetic nephropathy; K21.9 Gastro-esophageal reflux disease without esophagitis; M06.9 Rheumatoid arthritis, unspecified; D50.9 Iron deficiency anemia, unspecified; Z90.710 Acquired absence of both cervix and uterus; Z88.5 Allergy status to narcotic agent; Z88.2 Allergy status to sulfonamides; E88.09 Other disorders of plasma-protein metabolism, not elsewhere classified; R80.9 Proteinuria, unspecified; I80.8 Phlebitis and thrombophlebitis of other sites; N05.9 Unspecified nephritic syndrome with unspecified morphologic changes; D63.1 Anemia in chronic kidney disease
CPT/HCPCS: 36415; 36416; 36430; 50200; 70450; 71045; 77012; 80048; 80053; 82040; 82043; 83880; 84155; 84484; 85014; 85018; 85025; 85610; 85730; 86850; 86900; 86901; 88329; 93005; 96365; 96366; 96375; J0360; J1200; J1644; J1940; J2250; J2765; J3010; P9016; Q0162; Q0163; Q5105

== ENCOUNTER 2019-09-09 09:18 | Emergency (ER) | payer BC, MEDICARE ==
[2019-09-09] MEDS ORDERED: Ondansetron PF 4 MG/2 ML Vial ONE (09:46)
[2019-09-09] MEDS ORDERED: Furosemide 20 MG/2 ML VIAL ONE (09:47)
--- NOTE | 2019-09-09 09:53 | RAD ---
Portable frontal chest radiograph: 09/09/2019 COMPARISON: 07/30/2019 HISTORY: Hypertension, foot swelling FINDINGS: Lungs are clear. Heart and mediastinal contours appear within normal limits. IMPRESSION: No acute findings.
[2019-09-09 10:18] LABS: #Eosinphils 0.1 thou/uL (0.0-0.7); #Lymphocytes 1.5 thou/uL (1.20-3.40); #Monocytes 0.6 thou/uL (0.11-0.59); #Neutrophils 5.3 thou/uL (1.40-6.50); %Basophils 0.6 % (0.0-1.0); %Eosinophils 0.9 % (0.0-10.0); %Lymphocytes 19.6 % (21.0-51.0); %Monocytes 7.8 % (0.0-10.0); Hemoglobin 9.2 g/dL (12.0-16.0); Mean Corpuscular HGB CONC 30.9 g/dL (32.0-36.0); Mean Corpuscular Hemoglobin 22.7 pg (27.0-31.0); Mean Corpuscular Volume 73.3 fL (78.0-98.0); Mean Platelet Volume 7.6 fL (7.4-10.4); Platelet Count 425 thou/uL (130-400); RBC Distribution Width 15.8 % (11.5-14.5); Red Blood Cell (RBC) Count 4.07 mill/uL (4.20-5.40); White Blood Cell (WBC) Count 7.4 thou/uL (4.8-10.8)
[2019-09-09 10:47] LABS: ALT (SGPT) Less than 7 U/L (8-55); AST (SGOT) 10 U/L (5-34); Albumin 2.4 g/dL (3.4-4.8); Alkaline Phosphatase 75 U/L (40-110); Anion Gap 16 mmol/L (10-20); BUN (Urea Nitrogen) 14 mg/dL (9.8-20.1); Bilirubin, Total Less than 0.2 mg/dL (0.2-1.2); Calc. Creatinine Clearance 0 mL/min (70-130); Calcium 8.3 mg/dL (7.8-10.44); Carbon Dioxide 22 mmol/L (23-31); Chloride 106 mmol/L (98-107); Estimated GFR-MDRD 31; Globulin 4.3 g/dL (2.4-3.5); Glucose 237 mg/dL (80-115); Potassium 3.9 mmol/L (3.5-5.1); Protein, Total 6.7 g/dL (6.0-8.3); Sodium 140 mmol/L (136-145)
[2019-09-09] MEDS ORDERED: HYDROcodone/Acetaminophen 5/325 mg Tablet ONE (11:11)
[2019-09-09 12:17] LABS: Bacteria/HPF None Seen HPF (None Seen); Bilirubin Negative (Negative); Blood, Urine Negative (Negative); Clarity Clear (Clear); Glucose, Urine (Dipstick) 300 mg/dL (Negative); Leukocyte Negative Leu/uL (Negative); Nitrite Negative (Negative); Protein, Urine (Dipstick) 600 mg/dL (Neg-Trace); RBC/HPF 0-3 HPF (0-3); Squamous Epithelial None Seen HPF (0-3); Urobilinogen Normal mg/dL (Less than 2)
== END 2019-09-09 14:55 | disposition home or self-care (01) ==
LOC: ERS 09:18
DX: R60.0 Localized edema (principal); E11.9 Type 2 diabetes mellitus without complications; I10 Essential (primary) hypertension; D64.9 Anemia, unspecified; Z79.4 Long term (current) use of insulin; Z79.899 Other long term (current) drug therapy
CPT/HCPCS: 36415; 36416; 71045; 80053; 81003; 81015; 83880; 84484; 85025; 86850; 86900; 86901; 93005; 94760; 96374; 96375; J1940; J2405

== ENCOUNTER 2019-10-09 10:36 | Inpatient (IN) | payer BC, MEDICARE ==
--- NOTE | 2019-10-09 11:59 | RAD ---
Portable chest: HISTORY: Chest pain. Shortness of breath. COMPARISON: 09/09/2019 FINDINGS: Lung boswell are clear. Heart and mediastinum appear unremarkable. Vascularity is normal. Visualized osseous structures unremarkable. IMPRESSION: No acute finding
[2019-10-09] MEDS ORDERED: Acetaminophen 500 MG TAB ONE (12:10)
[2019-10-09] MEDS ORDERED: Ondansetron PF 4 MG/2 ML Vial ONE (12:10)
[2019-10-09] MEDS ORDERED: Labetalol HCl 100 MG/20 ML VIAL ONE (12:11)
--- NOTE | 2019-10-09 12:17 | CT ---
EXAM: CT brain without contrast HISTORY: Bilateral lower extremity swelling and generalized body aches and pain COMPARISON: 07/30/2019 TECHNIQUE: Multiple contiguous axial images were obtained and a CT of the brain without contrast. FINDINGS: The brain is normal in morphology and attenuation without focal lesions or confluent areas of infarction. There is no evidence of hydrocephalus, intracranial hemorrhage, or extra-axial fluid collection. The calvarium and overlying soft tissues are unremarkable. The visualized paranasal sinuses and masto id air cells are well aerated. IMPRESSION: No evidence of acute intracranial abnormality
[2019-10-09 12:20] LABS: #Basophils 0.1 thou/uL (0.0-0.2); #Eosinphils 0.2 thou/uL (0.0-0.7); #Monocytes 0.7 thou/uL (0.11-0.59); #Neutrophils 5.1 thou/uL (1.40-6.50); %Eosinophils 2.3 % (0.0-10.0); %Lymphocytes 25.1 % (21.0-51.0); %Monocytes 8.8 % (0.0-10.0); %Neutrophils 62.7 % (42.0-75.0); Hemoglobin 9.6 g/dL (12.0-16.0); Mean Corpuscular Hemoglobin 21.9 pg (27.0-31.0); Mean Corpuscular Volume 70.9 fL (78.0-98.0); Mean Platelet Volume 8.5 fL (7.4-10.4); Platelet Count 401 thou/uL (130-400); RBC Distribution Width 15.2 % (11.5-14.5); Red Blood Cell (RBC) Count 4.37 mill/uL (4.20-5.40); White Blood Cell (WBC) Count 8.1 thou/uL (4.8-10.8)
[2019-10-09 12:41] LABS: ALT (SGPT) Less than 7 U/L (8-55); AST (SGOT) 12 U/L (5-34); Albumin 2.6 g/dL (3.4-4.8); Alkaline Phosphatase 85 U/L (40-110); Anion Gap 14 mmol/L (10-20); BUN (Urea Nitrogen) 13 mg/dL (9.8-20.1); Bilirubin, Total Less than 0.2 mg/dL (0.2-1.2); Calc. Creatinine Clearance 0 mL/min (70-130); Calcium 7.6 mg/dL (7.8-10.44); Carbon Dioxide 20 mmol/L (23-31); Chloride 110 mmol/L (98-107); Estimated GFR-MDRD 37; Globulin 4.3 g/dL (2.4-3.5); Glucose 60 mg/dL (80-115); Lipase 18 U/L (8-78); Potassium 3.4 mmol/L (3.5-5.1); Protein, Total 6.9 g/dL (6.0-8.3); Sodium 141 mmol/L (136-145)
[2019-10-09] MEDS ORDERED: Morphine 4 MG/ML VIAL ONE (12:51)
[2019-10-09 13:00] LABS: Bacteria/HPF None Seen HPF (None Seen); Bilirubin Negative (Negative); Blood, Urine Trace (Negative); Clarity Clear (Clear); Glucose, Urine (Dipstick) 30 mg/dL (Negative); Leukocyte Negative Leu/uL (Negative); Nitrite Negative (Negative); Protein, Urine (Dipstick) 300 mg/dL (Neg-Trace); RBC/HPF 0-3 HPF (0-3); Squamous Epithelial None Seen HPF (0-3); Urobilinogen Normal mg/dL (Less than 2); WBC/HPF 0-3 HPF (0-3)
[2019-10-09] MEDS ORDERED: diphenhydrAMINE 50 MG/ML VIAL ONE (13:15)
[2019-10-09] MEDS ORDERED: niCARdipine 25 MG in Sodium Chloride 0.9% 250 ML 240 ML IVPB SCH (13:30)
[2019-10-09] MEDS ORDERED: Senokot S 8.6-50 MG TAB PO PRN (15:18)
[2019-10-09] MEDS ORDERED: Acetaminophen 325 MG TAB PO PRN (15:18)
[2019-10-09] MEDS ORDERED: Dextrose 5% in Water 1,000 ML IV PRN (15:25)
[2019-10-09] MEDS ORDERED: Dextrose 50% Abboject 50 ML SYRINGE SLOW IVP PRN (15:25)
[2019-10-09 15:39] LABS: Troponin I 0.019 ng/mL (< 0.028)
[2019-10-09] MEDS ORDERED: Furosemide 40 MG/4 ML VIAL SLOW IVP SCH (16:00)
[2019-10-09] MEDS ORDERED: niCARdipine 50 MG in Sodium Chloride 0.9% 250 ML 230 ML IV SCH (16:45)
[2019-10-09] MEDS ORDERED: niCARdipine 40MG In NaCl 40 MG/200 ML BAG IVPB SCH (16:45)
[2019-10-09 18:18] LABS: Troponin I Less than 0.010 ng/mL (< 0.028)
[2019-10-09] MEDS ORDERED: diphenhydrAMINE 25 MG CAP PO SCH (19:30)
[2019-10-09] MEDS: Fioricet 325/50/40 mg Tablet PO PRN (20:22)
[2019-10-09] MEDS: hydrALAZINE 25 MG TAB PO SCH (20:22)
[2019-10-09] MEDS: cloNIDine 0.1 MG TAB PO SCH (20:23)
[2019-10-09] MEDS: Labetalol 100 MG TAB PO SCH (20:23)
--- NOTE | 2019-10-09 22:32 | HP ---
CHIEF COMPLAINT: Nausea and swelling. HISTORY OF PRESENT ILLNESS: This patient is a 64-year-old female who was admitted to this facility in July of 2019, at which time, she had a hypertensive urgency with peripheral edema. The patient had some diuresis, had her blood pressure medications changed and she had significant improvement. Ultimately, she was also seen by Nephrology as she has chronic kidney disease. She reports that she has been having some problem with her pain in her neck and right arm and right hip. She has rheumatoid arthritis and is following with a frog or oyster farmworker for this. She also was supposed to see a neurologist for her neck issues, but was told she needed an MRI first. She saw Dr. Rivera, her PCP on Friday and had a C-spine x-ray obtained as the MRI had previously not been approved by insurance yet. The patient reports with all that going on , 2 days ago, she developed significant nausea with exacerbation of her pain. She had lightheadedness, tinnitus, dizziness, and vomiting. She also developed lower extremity edema, which was worse yesterday evening and by this morning when that had not resolved, she presented to the emergency department. She denies any chest pain or shortness of breath. REVIEW OF SYSTEMS: She denies fevers or chills. She reports the iron pills that she is taking for iron deficiency anemia are causing her significant constipation. Metamucil has not helped. She also reports difficulty sleeping because of the pain that she is experiencing. All other systems reviewed, all pertinent positives and negatives noted in the history of present illness. PAST MEDICAL HISTORY: Notable for CKD stage 4, hypertension, chronic iron deficiency anemia, diabetes mellitus type 2, diabetic nephropathy, gastroesophageal reflux disease, degenerative joint disease of the hip, and rheumatoid arthritis. PAST SURGICAL HISTORY: Hysterectomy, cataract-ectomy, colonoscopy. SOCIAL HISTORY: The patient is a nonsmoker, nondrinker, and nondrug user. She is . She has 3 children. 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 She reports that she is a DNR and states she wants no resuscitative efforts and if this happens, it is just her time and she should be allowed to pass. CURRENT MEDICATIONS: Working from her discharge medication list as we were not able to confirm otherwise, appears to be: 1. Clonidine 0.1 mg t.i.d. 2. Labetalol 200 mg b.i.d. 3. Omeprazole 200 mg b.i.d. 4. Humalog Mix 50/50, 15 units subcu at bedtime and 40 units subcu q.a.m. 5. Hydralazine 100 mg t.i.d. 6. She states she is no longer taking leflunomide. ALLERGIES: CODEINE AND SULFA. PHYSICAL EXAMINATION: VITAL SIGNS: At the time of presentation, BP was 222/92 with MAP of 135, pulse 78, respirations 18, O2 saturation 99% on room air. GENERAL APPEARANCE: Age-appropriate female, in no distress. She is awake, alert, oriented, pleasant, cooperative. HEART: Regular without murmurs. LUNGS: Clear bilaterally. ABDOMEN: Soft, nontender, and nondistended. Normal bowel sounds. No masses. No organomegaly. EXTREMITIES: Have 2+ pitting edema to the mid iqbal area bilaterally, which is tender to palpation. PSYCH: Normal affect and behavior. NEUROLOGICAL: Cognitively intact. Cranial nerves are intact. She moves all extremities spontaneously with no focal deficits. LABORATORY DATA: White count 8.1, hemoglobin is 9.6, MCV 70.9, platelets 401. Sodium 141, potassium 3.4, chloride 110, CO2 of 20, BUN 13, creatinine is 1.69, glucose 60, calcium 7.6, AST 12, ALT is 7. Troponin 0.01. BNP is 430.1. Albumin 2.6. CT of the brain unremarkable. Chest x-ray, no acute findings. IMPRESSION AND PLAN: 1. Hypertensive emergency in a patient with chronic kidney disease stage 4 and prior admission with similar a couple of months ago and appeared to be somewhat volume dependent at that time. She will receive a dose of IV Lasix. She has been given labetalol in the emergency department with no significant initial response, so she is now on a Cardene drip. Pressure is now down to the 190s systolic. She is feeling slightly better. We will admit to the ICU and continue the Cardene drip. Start her back on p.o. medications and consult Pulmonary Critical Care and Nephrology. 2. Diabetes mellitus. We will keep her on sliding scale, so we can confirm that is her accurate insulin regimen for now. 3. Neck pain with some radiation to the arm. We will get some plain films. 4. Chronic kidney disease. Consult Nephrology. 5. Chronic iron deficiency anemia. We will continue with some iron supplementation. 6. Constipation. Give stool softeners, p.r.n. Dulcolax and we will add some MiraLAX as needed. Job ID: [id number]
[2019-10-10 03:35] LABS: #Basophils 0.1 thou/uL (0.0-0.2); #Eosinphils 0.2 thou/uL (0.0-0.7); #Lymphocytes 1.6 thou/uL (1.20-3.40); #Monocytes 0.6 thou/uL (0.11-0.59); #Neutrophils 4.2 thou/uL (1.40-6.50); %Basophils 0.9 % (0.0-1.0); %Eosinophils 2.9 % (0.0-10.0); %Lymphocytes 23.8 % (21.0-51.0); %Monocytes 8.9 % (0.0-10.0); %Neutrophils 63.6 % (42.0-75.0); Hemoglobin 8.6 g/dL (12.0-16.0); Mean Corpuscular HGB CONC 30.6 g/dL (32.0-36.0); Mean Corpuscular Hemoglobin 21.8 pg (27.0-31.0); Mean Corpuscular Volume 71.3 fL (78.0-98.0); Mean Platelet Volume 8.1 fL (7.4-10.4); Platelet Count 343 thou/uL (130-400); RBC Distribution Width 15.2 % (11.5-14.5); Red Blood Cell (RBC) Count 3.96 mill/uL (4.20-5.40); White Blood Cell (WBC) Count 6.5 thou/uL (4.8-10.8)
[2019-10-10 03:56] LABS: Anion Gap 12 mmol/L (10-20); BUN (Urea Nitrogen) 15 mg/dL (9.8-20.1); Calc. Creatinine Clearance 28 mL/min (70-130); Calcium 7.1 mg/dL (7.8-10.44); Carbon Dioxide 24 mmol/L (23-31); Chloride 108 mmol/L (98-107); Estimated GFR-MDRD 31; Glucose 260 mg/dL (80-115); Potassium 3.5 mmol/L (3.5-5.1); Sodium 140 mmol/L (136-145)
[2019-10-10] MEDS: cloNIDine 0.1 MG TAB PO SCH ×3 (08:24→20:33)
[2019-10-10] MEDS: Labetalol 100 MG TAB PO SCH ×2 (08:25→20:34)
[2019-10-10] MEDS: Enoxaparin Sodium 30 MG/0.3 ML SYRINGE SC SCH (08:26)
--- NOTE | 2019-10-10 08:57 | CON ---
DATE OF CONSULTATION: 10/10/2019 CONSULTING PHYSICIAN: Hospitalist Group. REASON FOR CONSULTATION: Hypertensive emergency. HISTORY OF PRESENT ILLNESS: Ms. Roberts is a 64-year-old who was admitted to the hospital yesterday with nausea and leg swelling. She was found to have a profoundly elevated blood pressure with an elevated creatinine. She has been started on a nicardipine drip. She says she feels better today. PAST MEDICAL HISTORY: 1. Chronic kidney disease, stage 4. 2. Hypertension. 3. Iron deficiency anemia. 4. Diabetes mellitus, type 2. 5. Diabetic nephropathy. 6. Gastroesophageal reflux. 7. Rheumatoid arthritis. PAST SURGICAL HISTORY: 1. Hysterectomy. 2. Colonoscopy. 3. Cataract surgery. SOCIAL HISTORY: Nonsmoker. Does not consume alcohol. Does not use illicit drugs. 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 MEDICATIONS: Prior to admission; 1. Clonidine 0.1 mg t.i.d. 2. Labetalol 200 mg b.i.d. 3. Omeprazole 20 mg b.i.d. 4. Humalog insulin mix. 5. Hydralazine 100 mg t.i.d. ALLERGIES: CODEINE AND SULFA. REVIEW OF SYSTEMS: Denies any fever, chills, hematemesis, melena, hematochezia, hematuria, dysuria, or shortness of breath. PHYSICAL EXAMINATION: VITAL SIGNS: Temperature 98, pulse 97, O2 saturation 99% on room air, and blood pressure 173/80. GENERAL: She is awake, alert, no distress. HEENT: Pupils react. Sclerae are anicteric. Oropharynx clear. Tongue midline. NECK: No adenopathy, JVD, or carotid bruits. CARDIAC: S1 and S2, regular with a late 2/6 systolic murmur. LUNGS: Few inspiratory crackles in both bases. ABDOMEN: Soft and nontender to palpation. No hepatosplenomegaly. EXTREMITIES: No clubbing or cyanosis. She has trace ankle edema. IMAGING DATA: Chest x-ray demonstrated no acute findings. Head CT shows no active abnormality. LABORATORY DATA: Sodium 140, potassium 3.5, chloride 108, CO2 of 24, BUN 15, creatinine 1.9, and glucose 260. White blood cell count 6.5, hematocrit 28.2, and platelet count 343. ASSESSMENT: Hypertensive urgency. I do not see any end-organ damage above her baseline. RECOMMENDATION: This can be treated with oral medications and she can be weaned off the nicardipine drip. I anticipate her transfer into the floor later today. No further recommendations will be available as needed. Job ID: [id number]
[2019-10-10] MEDS: hydrALAZINE 25 MG TAB PO SCH ×3 (09:14→20:33)
--- NOTE | 2019-10-10 09:33 | PDOC.HOSPP ---
- Subjective Subjective: Continues on nicardipine drip this AM. MAP still in low 100s. She does not report any symptoms at this time. - Objective Vital Signs & Weight: Vital Signs (12 hours) Temp Pulse BP 10/10/19 09:14 98 183/81 H 10/10/19 08:25 95 179/81 H 10/10/19 08:24 179/81 H 10/10/19 07:00 97.9 F 10/10/19 00:00 98.6 F Weight Weight 136 lb 14.513 oz Most Recent Monitor Data Heart Rate from ECG 97 NIBP 165/79 NIBP BP-Mean 107 Respiration from ECG 20 SpO2 99 I&O: 10/09/19 10/10/19 10/11/19 06:59 06:59 06:59 Intake Total 1069 400 Output Total 2200 150 Balance -1131 250 Result Diagrams: 10/10/19 03:17 10/10/19 03:17 Additional Labs: Accuchecks 10/09/19 16:26 POC Glucose 109 Hospitalist ROS - Review of Systems All other systems reviewed; all pertinent +/- noted in HPI/Subj - Medication Medications: Active Medications Generic Name Dose Route Start Last Admin Trade Name Freq PRN Reason Stop Dose Admin Acetaminophen/Butalbital/Caffeine 2 tab 10/09/19 19:31 10/09/19 20:22 Fioricet PO 10/14/19 19:32 2 tab Q8H PRN Administration Headache Clonidine 0.1 mg 10/09/19 21:00 10/10/19 08:24 Catapres PO 0.1 mg TID SHO Administration Enoxaparin Sodium 30 mg 10/10/19 09:00 10/10/19 08:26 Lovenox SC 30 mg 0900 SHO Administration Hydralazine HCl 100 mg 10/09/19 21:00 10/10/19 09:14 Apresoline PO 100 mg TID SHO Administration Nicardipine HCl 50 mg/ Sodium 250 mls @ 0 mls/hr 10/09/19 16:45 10/09/19 18: 31 Chloride IV 250 mls INF SHO Administration Protocol As Directed Labetalol HCl 200 mg 10/09/19 21:00 10/10/19 08:25 Normodyne PO 200 mg BID SHO Administration Sodium Chloride 10 ml 10/09/19 21:00 10/10/19 08:26 Flush - Normal Saline IVF 10 ml Q12HR SHO Administration - Exam General Appearance: NAD, awake alert Eye: PERRL, anicteric sclera ENT: normocephalic atraumatic, no oropharyngeal lesions, moist mucosa Neck: supple, symmetric, no JVD, no thyromegaly, no lymphadenopathy, no carotid bruit Heart: RRR, no murmur, no gallops, no rubs, normal peripheral pulses Respiratory: CTAB, no wheezes, no rales, no ronchi, normal chest expansion, no tachypnea, normal percussion Gastrointestinal: soft, non-tender, non-distended, normal bowel sounds, no palpable masses, no hepatomegaly, no splenomegaly, no bruit Extremities: no cyanosis, no clubbing, no edema Skin: normal turgor, no lesions, no rashes Neurological: cranial nerve grossly intact, normal sensation to touch, no weakness, no focal deficits, no new deficit Musculoskeletal: normal tone, normal strength, no muscle wasting Psychiatric: normal affect, normal behavior, A&O x 3 Hosp A/P (1) Hypertensive emergency Code(s): I16.1 - HYPERTENSIVE EMERGENCY Status: Acute (2) Acute worsening of stage 3 chronic kidney disease Code(s): N18.3 - CHRONIC KIDNEY DISEASE, STAGE 3 (MODERATE) Status: Acute (3) DM2 (diabetes mellitus, type 2) Status: Chronic (4) Anemia in chronic kidney disease (CKD) Code(s): N18.9 - CHRONIC KIDNEY DISEASE, UNSPECIFIED; D63.1 - ANEMIA IN CHRONIC KIDNEY DISEASE Status: Acute - Plan Continue to wean off of nicardipine drip, restart labetalol, hydralazine, and clonidine from home Appreciate nephrology recommendations, worsening of Cr from 1.6 to 1.9 Lantus 15u in the AM, with medium dose correction scale, BSG ACHS Continue other medication from home Avoid nephrotoxic medication Disposition: Continue care in CCU, wean off of nicardipine. Coordinate with nephrology team. Monitor Cr.
[2019-10-10] MEDS ORDERED: Dextrose 50% Abboject 50 ML SYRINGE SLOW IVP PRN (09:39)
[2019-10-10] MEDS ORDERED: Dextrose 5% in Water 1,000 ML IV PRN (09:39)
[2019-10-10] MEDS: Polyethylene Glycol 3350 17 GM Packet PO PRN (10:14)
[2019-10-10] MEDS: Fioricet 325/50/40 mg Tablet PO PRN ×2 (10:14→17:40)
[2019-10-10] MEDS: HumaLOG 300 UNITS/3 ML VIAL SC PRN ×2 (10:14→16:24)
[2019-10-10] MEDS: Ferrous Sulfate 325 MG TAB PO SCH (10:17)
[2019-10-10] MEDS: Bisacodyl 5 MG TAB PO PRN (10:18)
[2019-10-10] MEDS ORDERED: Insulin Glargine 15 UNITS in Pre-Filled Syringe 1 EACH SC SCH (10:30)
[2019-10-10] MEDS: FERRALET PO SCH (11:58)
[2019-10-10] MEDS ORDERED: Ondansetron PF 4 MG/2 ML Vial SLOW IVP PRN (12:06)
[2019-10-10] MEDS ORDERED: Ondansetron ODT 4 MG TAB PO PRN (12:45)
--- NOTE | 2019-10-10 13:26 | CON ---
DATE OF CONSULTATION: 10/10/2019 CONSULTING PHYSICIAN: Hamzah Berry MD REASON FOR CONSULTATION: Acute kidney injury and hypertension. REASON FOR ADMISSION: Nausea and leg swelling. HISTORY OF PRESENT ILLNESS: This is a 64-year-old female with history of CKD stage 4, hypertension, anemia, diabetes, who came to the hospital with above complaints and was found to have elevated creatinine and elevated blood pressure and was admitted. She is in ICU. She was on Cardene drip. She has been weaned off to oral medications. She is feeling much better. Nausea is better. Leg swelling seems to be better per the patient. No chest pain or palpitation. No abdominal pain. No diarrhea reported. PAST MEDICAL HISTORY: Positive for CKD stage 4, hypertension, anemia, type 2 diabetes, diabetic nephropathy, GERD, and rheumatoid arthritis. PAST SURGICAL HISTORY: Hysterectomy, cataract surgery, and colonoscopy. HOME MEDICATIONS: 1. Clonidine. 2. Labetalol. 3. Omeprazole. 4. Humalog. 5. Hydralazine. ALLERGIES: CODEINE AND SULFA. SOCIAL HISTORY: No smoking, alcohol, or illicit drugs abuse. FAMILY HISTORY: No history of any kidney disease. REVIEW OF SYSTEMS: CONSTITUTIONAL: Negative for weight loss or gain, ability to conduct usual activities. SKIN: Negative for rash, itching. EYES: Negative for double vision, pain. ENT/MOUTH: Negative for nose bleeding, neck stiffness, pain, tenderness. CARDIOVASCULAR: Negative for palpitations, dyspnea on exertion, orthopnea. RESPIRATORY: Negative for shortness of breath, wheezing, cough, hemoptysis, fever or night sweats. GASTROINTESTINAL: Negative for poor appetite, abdominal pain, heartburn, nausea , vomiting, constipation, or diarrhea. GENITOURINARY: Negative for urgency, frequency, dysuria, nocturia. MUSCULOSKELETAL: Negative for pain, swelling. NEUROLOGIC/PSYCHIATRIC: Negative for anxiety, depression. ALLERGY/IMMUNOLOGIC: Negative for skin rash, bleeding tendency. PHYSICAL EXAMINATION: GENERAL: This is a well-built female, in no apparent distress. VITAL SIGNS: Temperature 97.9, pulse 90, respiratory rate 20, and blood pressure 165/79. Musculoskeletal : No tenderness, No edema HEENT: Atraumatic normocephalic Neck: Supple Cardiovascular: S1S2 heard, Rate and rhythm regular Respiratory: Clear to auscultation Gastrointestinal: Abdomen is soft Dermatologic : No skin rash Neurologic: Alert and awake and oriented X3 No focal neurologic deficits. Moving all the extremities. Psychiatric: Mood and affect normal LABORATORY DATA: Hemoglobin is 8.6. Potassium 3.5, BUN is 15, creatinine is 1.9, GFR is 31. Her baseline creatinine seems to be around 1.7 to 2. ASSESSMENT AND PLAN: 1. Acute kidney injury on chronic kidney disease, seems to be close to her baseline. 2. Hypertension, seems to be better. Agree with weaning of drip and titrating medications. 3. Diabetic nephropathy. 4. Chronic edema. 5. History of hypertension. 6. History of anemia. Avoid nephrotoxins and monitor and control blood pressure cautiously. We will follow. Thank you for the consult. Job ID: [id number] [facility]
[2019-10-10] MEDS: Atorvastatin Calcium 40 MG TAB PO SCH (20:33)
[2019-10-11] MEDS: Fioricet 325/50/40 mg Tablet PO PRN ×2 (02:30→13:20)
[2019-10-11 05:05] LABS: Anion Gap 13 mmol/L (10-20); BUN (Urea Nitrogen) 14 mg/dL (9.8-20.1); Calc. Creatinine Clearance 26 mL/min (70-130); Calcium 6.9 mg/dL (7.8-10.44); Carbon Dioxide 23 mmol/L (23-31); Chloride 107 mmol/L (98-107); Estimated GFR-MDRD 29; Glucose 141 mg/dL (80-115); Potassium 3.7 mmol/L (3.5-5.1); Sodium 139 mmol/L (136-145)
[2019-10-11] MEDS ORDERED: IRON CARB GL PO SCH (09:00)
[2019-10-11] MEDS ORDERED: B12 PO SCH (09:00)
[2019-10-11] MEDS ORDERED: DOCUSATE PO SCH (09:00)
[2019-10-11] MEDS ORDERED: [UNRECOGNIZED DRUG - OTHER] PO SCH (09:00)
[2019-10-11] MEDS: Labetalol 100 MG TAB PO SCH ×2 (09:16→20:50)
[2019-10-11] MEDS: cloNIDine 0.1 MG TAB PO SCH ×4 (09:16→20:49)
[2019-10-11] MEDS: hydrALAZINE 25 MG TAB PO SCH ×3 (09:16→20:48)
[2019-10-11] MEDS: Ferrous Sulfate 325 MG TAB PO SCH (09:17)
[2019-10-11] MEDS: Enoxaparin Sodium 30 MG/0.3 ML SYRINGE SC SCH (09:17)
[2019-10-11] MEDS: FERRALET PO SCH (09:19)
[2019-10-11] MEDS: Insulin Glargine 15 UNITS in Pre-Filled Syringe 1 EACH SC SCH (09:19)
--- NOTE | 2019-10-11 09:59 | PRG ---
DATE OF SERVICE: 10/11/2019 SUBJECTIVE: A 64-year-old female, being seen for acute kidney injury. The patient denies any nausea, vomiting, or chest pain. OBJECTIVE: CONSTITUTIONAL: The patient is awake, alert. VITAL SIGNS: Afebrile, pulse 75, breathing is 16, blood pressure was 142/66. GENERAL APPEARANCE AND MENTAL STATUS: Fair. HEAD/NECK: Normocephalic. Atraumatic. EYES: EOMI. No deformity. EARS: Clear. No ulcers. NOSE: Intact. No lesions. MOUTH: Clear. No discharge. THROAT: Clear. No exudate. LUNGS: Clear. No crackles. CARDIAC: S1, S2. No rub. ABDOMEN: Benign. Bowel sounds positive. GENITALIA/RECTUM: Hodges absent. BACK/EXTREMITIES: Edema 0+. NEUROLOGICAL: Alert and motor intact. SKIN: LYMPHATICS: LABORATORY DATA: Labs reviewed. ASSESSMENT: 1. Stage 4 chronic kidney disease, stable. 2. Hypertension, stable. 3. Anemia, stable. 4. Medication based on GFR appropriate. 5. Edema, continue Lasix on a daily basis. Job ID: [id number]
[2019-10-11] MEDS: Polyethylene Glycol 3350 17 GM Packet PO PRN (12:00)
[2019-10-11] MEDS: Bisacodyl 5 MG TAB PO PRN (12:00)
[2019-10-11] MEDS: HumaLOG 300 UNITS/3 ML VIAL SC PRN (12:01)
--- NOTE | 2019-10-11 12:26 | RAD ---
CERVICAL SPINE 4 VIEWS: Date: 10/11/2019 HISTORY: Neck pain. FINDINGS: Moderate to severe degenerative changes of the cervical spine. Loss of disc space is pronounced at th e C5-6 and C6-7 levels. Mild wedging at C4, C5, and C6, which appears chronic. Anterior osteophytes. Posterior spondylosis. On the lateral view, there is minimal posterolisthesis at C5-6. However, on the swimmer's view, this appears to exacerbate with posterolisthesis on the swimmer's view at this level recorded at approxima tely 4 mm. Facet hypertrophy. IMPRESSION: Moderate to severe degenerative changes of the cervical spine as described, most pronounced at C5-6 a nd C6-7. Posterolisthesis centered at C5-6 on the swimmer's view may be exacerbated by positional dif ferences. Consider lateral views with neutral, flexion, and extension positions. POS: [facility]
--- NOTE | 2019-10-11 15:44 | PDOC.HOSPP ---
- Subjective Encounter Date: 10/11/19 Encounter Time: 07:00 Subjective: Pt seen for followup re: neck pain. Denies chest pain or shortness of breath. c/o headache. c/o neck pain. - Objective Vital Signs & Weight: Vital Signs (12 hours) Temp Pulse Resp BP Pulse Ox 10/11/19 14:56 99.3 F 109 H 20 96 10/11/19 12:04 99.1 F 101 H 14 165/72 H 96 10/11/19 06:29 99.2 F 98 10 L 140/66 98 10/11/19 04:00 99.2 F 93 18 134/67 93 L Weight Admit Weight 136 lb 14.513 oz Weight 136 lb 14.513 oz Most Recent Monitor Data Heart Rate from ECG 109 NIBP 117/61 NIBP BP-Mean 79 Respiration from ECG 21 SpO2 97 I&O: 10/10/19 10/11/19 10/12/19 06:59 06:59 06:59 Intake Total 1069 1387 Output Total 2200 725 Balance -1131 662 Result Diagrams: 10/10/19 03:17 10/11/19 04:24 Additional Labs: Accuchecks 10/11/19 10/11/19 10/10/19 10:31 06:28 21:06 POC Glucose 251 H 134 H 136 H 10/10/19 16:26 POC Glucose 197 H Labs and MARs reviewed by me EKG Reviewed by me: Yes (Tele: sinus tachycardia) Hospitalist ROS - Review of Systems Respiratory: denies: cough, shortness of breath, SOB with excertion, pleuritic pain, wheezing Cardiovascular: denies: chest pain, palpitations, orthopnea, paroxysmal noc. dyspnea, edema, light headedness Musculoskeletal: reports: neck pain, other (headache) - Medication Medications: Active Medications Generic Name Dose Route Start Last Admin Trade Name Freq PRN Reason Stop Dose Admin Acetaminophen/Butalbital/Caffeine 2 tab 10/09/19 19:31 10/11/19 13:20 Fioricet PO 10/14/19 19:32 2 tab Q8H PRN Administration Headache Atorvastatin Calcium 40 mg 10/10/19 21:00 10/10/19 20:33 Lipitor PO 40 mg HS SHO Administration Bisacodyl 10 mg 10/09/19 15:18 10/11/19 12:00 Dulcolax PO 10 mg DAILYPRN PRN Administration Constipation Clonidine 0.1 mg 10/09/19 21:00 10/11/19 15:01 Catapres PO 0.1 mg TID SHO Administration Enoxaparin Sodium 30 mg 10/10/19 09:00 10/11/19 09:17 Lovenox SC 30 mg 0900 SHO Administration Ferrous Sulfate 325 mg 10/10/19 08:00 10/11/19 09:17 Feosol PO 325 mg QAM-WM SHO Administration Hydralazine HCl 100 mg 10/09/19 21:00 10/11/19 15:00 Apresoline PO 100 mg TID SHO Administration Nicardipine HCl 50 mg/ Sodium 250 mls @ 0 mls/hr 10/09/19 16:45 10/09/19 18: 31 Chloride IV 250 mls INF SHO Administration Protocol As Directed Insulin Glargine 15 units/ 0.15 mls @ 0 mls/hr 10/11/19 09:00 10/11/19 09:19 Miscellaneous Medication SC 0.15 mls QAM SHO Administration Insulin Human Lispro 0 units 10/09/19 15:25 10/11/19 12:01 Humalog SC 4 unit .MILD SLIDING SCALE PRN Administration Mild Correctional Scale Labetalol HCl 200 mg 10/09/19 21:00 10/11/19 09:16 Normodyne PO 200 mg BID SHO Administration Ferralet 90 0 each 10/10/19 09:00 10/11/19 09:19 PO Not Given DAILY SHO Polyethylene Glycol 17 gm 10/09/19 15:45 10/11/19 12:00 Miralax PO 17 gm DAILYPRN PRN Administration Constipation Sodium Chloride 10 ml 10/09/19 21:00 10/11/19 09:18 Flush - Normal Saline IVF 10 ml Q12HR SHO Administration - Exam General Appearance: awake alert Eye: anicteric sclera Neck: supple, symmetric, no JVD Heart: RRR, no rubs Respiratory: CTAB, no wheezes, no rales Gastrointestinal: soft, non-tender Extremities: no cyanosis, no clubbing Musculoskeletal: normal tone, normal strength Psychiatric: normal affect, normal behavior Hosp A/P - Plan - Assessment (1) Neck pain Status: Acute (2) Stage 3 chronic kidney disease Code(s): N18.3 - CHRONIC KIDNEY DISEASE, STAGE 3 (MODERATE) Status: Chronic (3) DM2 (diabetes mellitus, type 2) Status: Chronic (4) Anemia in chronic kidney disease (CKD) Code(s): N18.9 - CHRONIC KIDNEY DISEASE, UNSPECIFIED; D63.1 - ANEMIA IN CHRONIC KIDNEY DISEASE Status: Acute (5) Hypertensive emergency Code(s): I16.1 - HYPERTENSIVE EMERGENCY Status: Resolved - Plan Check neck x-rays. Creatinine around baseline, 2.10 today. Continue accuchecks and insulin sliding scale. Likely home in 24 h.
--- NOTE | 2019-10-11 15:46 | RAD ---
CERVICAL SPINE 4 VIEWS: Date: 10/11/2019 Lateral view obtained with flexion and extension, and oblique views obtained. INDICATION: Posterolisthesis at C5-6 noted on films earlier today. FINDINGS: In flexion, there is slight anterolisthesis at C3-4. Slight posterolisthesis at C5-6 in flexion measu res in the 2.0 mm range. In extension, this posterolisthesis at C5-6 measures 2-3 mm. Oblique views shows evidence of foraminal stenosis on the right at C6-7. IMPRESSION: Moderate degenerative changes of the cervical spine again noted with anterior osteophytes. Loss of di sc space at C5-6 and C6-7. Slight posterolisthesis at C5-6 does not appear to significant change with flexion or extension. POS: [facility]
[2019-10-11] MEDS ORDERED: Acetaminophen/Codeine 30-300mg Tablet PO PRN ×2 (16:41)
[2019-10-11] MEDS: Lidocaine 5% Patch TD SCH (17:18)
--- NOTE | 2019-10-11 19:03 | EKG ---
Test Reason : STAT Blood Pressure : / mmHG Vent. Rate : 102 BPM Atrial Rate : 102 BPM P-R Int : 152 ms QRS Dur : 062 ms QT Int : 338 ms P-R-T Axes : 046 022 058 degrees QTc Int : 440 ms Sinus tachycardia Possible Left atrial enlargement Abnormal ECG When compared with ECG of 09-SEP-2019 09:55, (Unconfirmed) No significant change was found Confirmed by SONIA XIONG, DR. S. (4) on 10/11/2019 7:02:48 PM Referred By: JOSE LUIS Confirmed By:DR. Brissa SCOTT MD
[2019-10-11] MEDS: Atorvastatin Calcium 40 MG TAB PO SCH (20:50)
[2019-10-11] MEDS: diphenhydrAMINE 50 MG/ML VIAL IVP PRN (20:53)
[2019-10-12] MEDS: Lidocaine Patch Removal 1 EACH TOP SCH (08:06)
[2019-10-12] MEDS: Enoxaparin Sodium 30 MG/0.3 ML SYRINGE SC SCH (08:36)
[2019-10-12] MEDS: hydrALAZINE 25 MG TAB PO SCH ×3 (08:36→20:34)
[2019-10-12] MEDS: Insulin Glargine 15 UNITS in Pre-Filled Syringe 1 EACH SC SCH (08:36)
[2019-10-12] MEDS: Ferrous Sulfate 325 MG TAB PO SCH (08:37)
[2019-10-12] MEDS: cloNIDine 0.2 MG TAB PO SCH ×2 (08:37→15:27)
[2019-10-12] MEDS: Labetalol 100 MG TAB PO SCH ×2 (08:37→20:33)
[2019-10-12] MEDS: FERRALET PO SCH (08:38)
[2019-10-12] MEDS ORDERED: Labetalol HCl 100 MG/20 ML VIAL SLOW IVP PRN (08:54)
[2019-10-12] MEDS ORDERED: hydrALAZINE 20 MG/ML VIAL SLOW IVP PRN (08:54)
[2019-10-12] MEDS ORDERED: Amlodipine 5 MG TAB PO SCH ×2 (09:00→19:15)
[2019-10-12] MEDS ORDERED: Morphine 2 MG/ML SYRINGE SLOW IVP PRN (09:31)
[2019-10-12] MEDS ORDERED: Morphine 2 MG/ML SYRINGE SLOW IVP SCH (09:45)
[2019-10-12 09:47] LABS: #Eosinphils 0.2 thou/uL (0.0-0.7); #Lymphocytes 1.1 thou/uL (1.20-3.40); #Monocytes 0.6 thou/uL (0.11-0.59); #Neutrophils 5.1 thou/uL (1.40-6.50); %Basophils 0.4 % (0.0-1.0); %Eosinophils 2.5 % (0.0-10.0); %Lymphocytes 15.7 % (21.0-51.0); %Monocytes 8.6 % (0.0-10.0); %Neutrophils 72.9 % (42.0-75.0); Hemoglobin 9.5 g/dL (12.0-16.0); Mean Corpuscular HGB CONC 30.4 g/dL (32.0-36.0); Mean Corpuscular Hemoglobin 21.6 pg (27.0-31.0); Mean Platelet Volume 7.8 fL (7.4-10.4); Platelet Count 415 thou/uL (130-400); RBC Distribution Width 15.4 % (11.5-14.5); Red Blood Cell (RBC) Count 4.39 mill/uL (4.20-5.40)
--- NOTE | 2019-10-12 09:58 | PRG ---
DATE OF SERVICE: 10/12/2019 SUBJECTIVE: A 64-year-old female, being seen for acute kidney injury. The patient denied nausea, vomiting, or chest pain. OBJECTIVE: CONSTITUTIONAL: The patient is awake and alert. VITAL SIGNS: Afebrile, pulse 105, breathing 16, blood pressure was 177/78. GENERAL APPEARANCE AND MENTAL STATUS: Fair. HEAD/NECK: Normocephalic. Atraumatic. EYES: EOMI. No deformity. EARS: Clear. No ulcers. NOSE: Intact. No lesions. MOUTH: Clear. No discharge. THROAT: Clear. No exudate. LUNGS: Clear. No crackles. CARDIAC: S1, S2. No rub. ABDOMEN: Benign. Bowel sounds positive. GENITALIA/RECTUM: Hodges absent. BACK/EXTREMITIES: Edema 0+. NEUROLOGICAL: Alert and motor intact. SKIN: LYMPHATICS: LABORATORY DATA: Reviewed. ASSESSMENT AND PLAN: 1. Chronic kidney disease, stage 4, stable. 2. Hypertension. We would recommend increasing the labetalol to 400 b.i.d. 3. Anemia, stable. 4. Medication based on GFR, appropriate. Job ID: [id number]
[2019-10-12 10:08] LABS: Anion Gap 12 mmol/L (10-20); BUN (Urea Nitrogen) 15 mg/dL (9.8-20.1); Calc. Creatinine Clearance 25 mL/min (70-130); Calcium 7.6 mg/dL (7.8-10.44); Carbon Dioxide 24 mmol/L (23-31); Chloride 103 mmol/L (98-107); Estimated GFR-MDRD 27; Glucose 205 mg/dL (80-115); Potassium 3.8 mmol/L (3.5-5.1); Sodium 135 mmol/L (136-145)
[2019-10-12] MEDS: HumaLOG 300 UNITS/3 ML VIAL SC PRN (11:53)
--- NOTE | 2019-10-12 15:44 | PDOC.HOSPP ---
- Subjective Encounter Date: 10/12/19 Encounter Time: 07:00 Subjective: Pt seen for followup re: hypertensive urgency. BP high today. Throbbing headache. - Objective Vital Signs & Weight: Vital Signs (12 hours) Temp Pulse Resp BP BP Pulse Ox 10/12/19 10:11 141/66 H 10/12/19 09:40 165/70 H 10/12/19 09:27 195/82 H 10/12/19 09:15 217/97 H 10/12/19 09:00 235/107 H 10/12/19 08:37 112 H 194/83 H 10/12/19 08:36 112 H 10/12/19 08:32 232/100 H 10/12/19 07:49 98.4 F 102 H 16 214/100 H 95 10/12/19 04:00 98.3 F 112 H 18 194/88 H 96 Weight Admit Weight 136 lb 14.513 oz Weight 138 lb Most Recent Monitor Data Heart Rate from ECG 109 NIBP 117/61 NIBP BP-Mean 79 Respiration from ECG 21 SpO2 97 I&O: 10/11/19 10/12/19 10/13/19 06:59 06:59 06:59 Intake Total 1387 1515 Output Total 725 Balance 662 1515 Result Diagrams: 10/12/19 09:38 10/12/19 09:38 Additional Labs: Accuchecks 10/12/19 10/12/19 10/11/19 10:25 06:12 21:01 POC Glucose 199 H 106 185 H 10/11/19 16:55 POC Glucose 190 H Labs and MARs reviewed by me EKG Reviewed by me: Yes (Tele: NSR) Hospitalist ROS - Review of Systems Constitutional: denies: fever, chills, sweats, weakness, malaise Cardiovascular: denies: chest pain, palpitations, orthopnea, paroxysmal noc. dyspnea, edema, light headedness Gastrointestinal: denies: nausea, vomiting, abdominal pain, diarrhea, constipation, melena, hematochezia Neurological: reports: other (headache) - Medication Medications: Active Medications Generic Name Dose Route Start Last Admin Trade Name Freq PRN Reason Stop Dose Admin Acetaminophen/Butalbital/Caffeine 2 tab 10/09/19 19:31 10/11/19 13:20 Fioricet PO 10/14/19 19:32 2 tab Q8H PRN Administration Headache Acetaminophen/Codeine Phosphate 2 tab 10/11/19 16:41 10/11/19 20:50 Tylenol #3 PO 2 tab Q6H PRN Administration Severe Pain (7-10) Amlodipine Besylate 5 mg 10/12/19 09:00 10/12/19 10:10 Norvasc PO 5 mg DAILY SHO Administration Atorvastatin Calcium 40 mg 10/10/19 21:00 10/11/19 20:50 Lipitor PO 40 mg HS SHO Administration Bisacodyl 10 mg 10/09/19 15:18 10/11/19 12:00 Dulcolax PO 10 mg DAILYPRN PRN Administration Constipation Clonidine 0.2 mg 10/12/19 09:00 10/12/19 15:27 Catapres PO 0.2 mg TID SHO Administration Diphenhydramine HCl 25 mg 10/11/19 16:41 10/11/19 20:53 Benadryl IVP 25 mg Q6H PRN Administration Itching Enoxaparin Sodium 30 mg 10/10/19 09:00 10/12/19 08:36 Lovenox SC 30 mg 0900 SHO Administration Ferrous Sulfate 325 mg 10/10/19 08:00 10/12/19 08:37 Feosol PO 325 mg QAM-WM [facility] Administration Hydralazine HCl 100 mg 10/09/19 21:00 10/12/19 15:27 Apresoline PO 100 mg TID SHO Administration Nicardipine HCl 50 mg/ Sodium 250 mls @ 0 mls/hr 10/09/19 16:45 10/09/19 18: 31 Chloride IV 250 mls INF [facility] Administration Protocol As Directed Insulin Glargine 15 units/ 0.15 mls @ 0 mls/hr 10/11/19 09:00 10/12/19 08:36 Miscellaneous Medication SC 0.15 mls QAM [facility] Administration Insulin Human Lispro 0 units 10/09/19 15:25 10/12/19 11:53 Humalog SC 2 unit .MILD SLIDING SCALE PRN Administration Mild Correctional Scale Lidocaine 1 patch 10/11/19 17:00 10/11/19 17:18 Lidoderm 5% Patch TD 1 patch Q24HR SHO Administration Miscellaneous Medication 1 each 10/12/19 05:00 10/12/19 08:06 Lidocaine Patch Removal TOP 1 each 0500 SHO Administration Ferralet 90 0 each 10/10/19 09:00 10/12/19 08:38 PO Not Given DAILY SHO Polyethylene Glycol 17 gm 10/09/19 15:45 10/11/19 12:00 Miralax PO 17 gm DAILYPRN PRN Administration Constipation Sodium Chloride 10 ml 10/09/19 21:00 10/12/19 08:38 Flush - Normal Saline IVF 10 ml Q12HR SHO Administration - Exam General Appearance: NAD Eye: anicteric sclera ENT: moist mucosa Neck: supple, no JVD Heart: RRR Respiratory: CTAB, no wheezes Gastrointestinal: soft, non-tender Extremities: no edema Skin: no rashes Neurological: cranial nerve grossly intact, normal sensation to touch, no weakness, no focal deficits Musculoskeletal: no muscle wasting Psychiatric: normal affect, normal behavior Hosp A/P - Plan - Assessment (5) Hypertensive emergency Code(s): I16.1 - HYPERTENSIVE EMERGENCY Status: Acute (2) Neck pain Status: Acute (3) Stage 3 chronic kidney disease Code(s): N18.3 - CHRONIC KIDNEY DISEASE, STAGE 3 (MODERATE) Status: Chronic (4) DM2 (diabetes mellitus, type 2) Status: Chronic (5) Anemia in chronic kidney disease (CKD) Code(s): N18.9 - CHRONIC KIDNEY DISEASE, UNSPECIFIED; D63.1 - ANEMIA IN CHRONIC KIDNEY DISEASE Status: Acute - Plan Increase labetalol to 400 mg PO BID, start amlodipine, PRN IV hydralazine and PRN IV labetalol. Follow up with PCP re: neck pain. Pt reports neck pain is better today. Check AM labs. Continue accuchecks and insulin sliding scale. Likely home in 24 h.
--- NOTE | 2019-10-12 17:37 | MRI ---
MRI OF BRAIN PERFORMED WITHOUT CONTRAST ENHANCEMENT: HISTORY: Intractable headache. COMPARISON: A 10/18/10 exam. The ventricular and cisternal system is within normal limits. There is increased T2 and FLAIR signal change in the white matter which is consistent with some chronic white matter changes. I do not see a ny signs of hemorrhage and on the diffusion weighted sequences, there is no evidence for infarct. The pituitary is normal in size. Mastoid air cells and visualized sinuses are clear. IMPRESSION: Chronic white matter change. No acute intracranial abnormality. POS: [facility]
[2019-10-12] MEDS: Lidocaine 5% Patch TD SCH (17:56)
[2019-10-12] MEDS ORDERED: Bisacodyl 10 MG SUPP PR SCH (18:15)
[2019-10-12] MEDS: cloNIDine 0.3 MG TAB PO SCH (20:33)
[2019-10-12] MEDS: Atorvastatin Calcium 40 MG TAB PO SCH (20:34)
[2019-10-13 04:27] LABS: #Eosinphils 0.2 thou/uL (0.0-0.7); #Lymphocytes 1.7 thou/uL (1.20-3.40); #Monocytes 0.7 thou/uL (0.11-0.59); #Neutrophils 5.1 thou/uL (1.40-6.50); %Basophils 0.5 % (0.0-1.0); %Eosinophils 2.5 % (0.0-10.0); %Lymphocytes 21.7 % (21.0-51.0); %Monocytes 9.2 % (0.0-10.0); %Neutrophils 66.2 % (42.0-75.0); Hemoglobin 8.5 g/dL (12.0-16.0); Mean Corpuscular HGB CONC 29.9 g/dL (32.0-36.0); Mean Corpuscular Hemoglobin 21.3 pg (27.0-31.0); Mean Corpuscular Volume 71.1 fL (78.0-98.0); Mean Platelet Volume 7.8 fL (7.4-10.4); Platelet Count 384 thou/uL (130-400); RBC Distribution Width 15.4 % (11.5-14.5); Red Blood Cell (RBC) Count 3.99 mill/uL (4.20-5.40); White Blood Cell (WBC) Count 7.6 thou/uL (4.8-10.8)
[2019-10-13 04:48] LABS: Anion Gap 13 mmol/L (10-20); BUN (Urea Nitrogen) 13 mg/dL (9.8-20.1); Calc. Creatinine Clearance 30 mL/min (70-130); Calcium 7.6 mg/dL (7.8-10.44); Carbon Dioxide 24 mmol/L (23-31); Chloride 106 mmol/L (98-107); Estimated GFR-MDRD 33; Glucose 81 mg/dL (80-115); Potassium 3.8 mmol/L (3.5-5.1); Sodium 139 mmol/L (136-145)
[2019-10-13] MEDS: Lidocaine Patch Removal 1 EACH TOP SCH (05:48)
[2019-10-13] MEDS: Ferrous Sulfate 325 MG TAB PO SCH (08:05)
[2019-10-13] MEDS: Enoxaparin Sodium 30 MG/0.3 ML SYRINGE SC SCH (08:10)
[2019-10-13] MEDS: cloNIDine 0.3 MG TAB PO SCH ×3 (08:10→20:14)
[2019-10-13] MEDS: Labetalol 100 MG TAB PO SCH ×2 (08:10→20:19)
[2019-10-13] MEDS: Amlodipine 10 MG TAB PO SCH (08:10)
[2019-10-13] MEDS: hydrALAZINE 25 MG TAB PO SCH ×3 (08:10→20:14)
[2019-10-13] MEDS: FERRALET PO SCH (08:11)
[2019-10-13] MEDS: diphenhydrAMINE 50 MG/ML VIAL IVP PRN (09:21)
[2019-10-13] MEDS: Insulin Glargine 15 UNITS in Pre-Filled Syringe 1 EACH SC SCH (09:21)
--- NOTE | 2019-10-13 09:40 | PRG ---
DATE OF SERVICE: 10/13/2019 SUBJECTIVE: A 64-year-old female, being seen for acute kidney injury. The patient denies any nausea, vomiting, or chest pain. OBJECTIVE: GENERAL: The patient is awake and alert. VITAL SIGNS: Afebrile, pulse 75, breathing 16, blood pressure was 141/67. GENERAL APPEARANCE AND MENTAL STATUS: Fair. HEAD/NECK: Normocephalic. Atraumatic. EYES: EOMI. No deformity. EARS: Clear. No ulcers. NOSE: Intact. No lesions. MOUTH: Clear. No discharge. THROAT: Clear. No exudate. LUNGS: Clear. No crackles. CARDIAC: S1, S2. No rub. ABDOMEN: Benign. Bowel sounds positive. GENITALIA/RECTUM: Hodges absent. BACK/EXTREMITIES: Edema 0+. NEUROLOGICAL: Alert and motor intact. SKIN: LYMPHATICS: LABORATORY DATA: Reviewed. ASSESSMENT AND RECOMMENDATIONS: 1. Stage 3 chronic kidney disease and acute kidney injury, stable. 2. Hypertension, stable. We will titrate current medications. 3. Anemia, stable on medication. 4. Medication based on GFR, appropriate. Job ID: [id number]
[2019-10-13] MEDS ORDERED: Gabapentin 100 MG CAP PO SCH ×2 (11:00→21:00)
[2019-10-13] MEDS: HumaLOG 300 UNITS/3 ML VIAL SC PRN ×2 (11:27→16:53)
[2019-10-13] MEDS ORDERED: Furosemide 40 MG TAB PO SCH (13:30)
--- NOTE | 2019-10-13 15:02 | PDOC.HOSPP ---
- Subjective Encounter Date: 10/13/19 Encounter Time: 07:00 Subjective: Pt seen for followup re: hypertensive urgency. BP continues to be labile. c/o neck pain shooting into the head. - Objective Vital Signs & Weight: Vital Signs (12 hours) Temp Pulse Resp BP Pulse Ox 10/13/19 13:03 142/63 H 10/13/19 11:23 98.4 F 81 16 101/58 L 97 10/13/19 09:24 101/51 L 10/13/19 07:40 98.4 F 86 16 216/98 H 97 Weight Admit Weight 136 lb 14.513 oz Weight 140 lb Most Recent Monitor Data Heart Rate from ECG 109 NIBP 117/61 NIBP BP-Mean 79 Respiration from ECG 21 SpO2 97 I&O: 10/12/19 10/13/19 10/14/19 06:59 06:59 06:59 Intake Total 1515 1440 Balance 1515 1440 Result Diagrams: 10/13/19 03:57 10/13/19 03:57 Additional Labs: Accuchecks 10/13/19 10/13/19 10/12/19 10:57 05:34 16:38 POC Glucose 189 H 81 151 H Labs and MARs reviewed by sd Hospitalist ROS - Review of Systems Respiratory: reports: other. denies: cough, shortness of breath, SOB with excertion, pleuritic pain, sputum, wheezing Cardiovascular: denies: chest pain, palpitations, orthopnea, paroxysmal noc. dyspnea, edema, light headedness Neurological: reports: other - Medication Medications: Active Medications Generic Name Dose Route Start Last Admin Trade Name Freq PRN Reason Stop Dose Admin Acetaminophen/Butalbital/Caffeine 2 tab 10/09/19 19:31 10/11/19 13:20 Fioricet PO 10/14/19 19:32 2 tab Q8H PRN Administration Headache Acetaminophen/Codeine Phosphate 2 tab 10/11/19 16:41 10/11/19 20:50 Tylenol #3 PO 2 tab Q6H PRN Administration Severe Pain (7-10) Amlodipine Besylate 10 mg 10/13/19 09:00 10/13/19 08:10 Norvasc PO 10 mg DAILY SHO Administration Atorvastatin Calcium 40 mg 10/10/19 21:00 10/12/19 20:34 Lipitor PO 40 mg HS SHO Administration Bisacodyl 10 mg 10/09/19 15:18 10/11/19 12:00 Dulcolax PO 10 mg DAILYPRN PRN Administration Constipation Clonidine 0.3 mg 10/12/19 21:00 10/13/19 08:10 Catapres PO 0.3 mg TID SHO Administration Diphenhydramine HCl 25 mg 10/11/19 16:41 10/13/19 09:21 Benadryl IVP 25 mg Q6H PRN Administration Itching Enoxaparin Sodium 30 mg 10/10/19 09:00 10/13/19 08:10 Lovenox SC 30 mg 0900 SHO Administration Ferrous Sulfate 325 mg 10/10/19 08:00 10/13/19 08:05 Feosol PO Not Given [facility] Furosemide 40 mg 10/13/19 13:30 10/13/19 13:41 Lasix PO 10/13/19 15:30 40 mg NOW SHO Administration Hydralazine HCl 100 mg 10/09/19 21:00 10/13/19 08:10 Apresoline PO 100 mg TID SHO Administration Nicardipine HCl 50 mg/ Sodium 250 mls @ 0 mls/hr 10/09/19 16:45 10/09/19 18: 31 Chloride IV 250 mls INF [facility] Administration Protocol As Directed Insulin Glargine 15 units/ 0.15 mls @ 0 mls/hr 10/11/19 09:00 10/13/19 09:21 Miscellaneous Medication SC 0.15 mls QAM SHO Administration Insulin Human Lispro 0 units 10/09/19 15:25 10/13/19 11:27 Humalog SC 2 unit .MILD SLIDING SCALE PRN Administration Mild Correctional Scale Labetalol HCl 20 mg 10/12/19 08:54 10/12/19 17:55 Normodyne SLOW IVP 20 mg Q4H PRN Administration SBP Greater Than 170 Labetalol HCl 400 mg 10/12/19 21:00 10/13/19 08:10 Normodyne PO 400 mg BID SHO Administration Lidocaine 1 patch 10/11/19 17:00 10/12/19 17:56 Lidoderm 5% Patch TD 1 patch Q24HR SHO Administration Miscellaneous Medication 1 each 10/12/19 05:00 01/29/20 05:48 Lidocaine Patch Removal TOP 1 each 0500 SHO Administration Morphine Sulfate 2 mg 10/12/19 09:31 10/12/19 16:21 Morphine SLOW IVP 2 mg Q4H PRN Administration BREAKTHRU Pain Ferralet 90 0 each 10/10/19 09:00 10/13/19 08:11 PO Not Given DAILY SHO Polyethylene Glycol 17 gm 10/09/19 15:45 10/11/19 12:00 Miralax PO 17 gm DAILYPRN PRN Administration Constipation Senna/Docusate Sodium 2 tab 10/09/19 15:18 10/12/19 16:10 Senokot S PO 2 tab BID PRN Administration Constipation Sodium Chloride 10 ml 10/09/19 21:00 10/13/19 08:11 Flush - Normal Saline IVF 10 ml Q12HR SHO Administration - Exam General Appearance: NAD Eye: anicteric sclera ENT: moist mucosa Neck: supple, no JVD Heart: RRR, no rubs Respiratory: CTAB Gastrointestinal: soft, non-tender Extremities: no clubbing Psychiatric: normal affect, normal behavior Hosp A/P - Plan - Assessment (1) Hypertensive emergency Code(s): I16.1 - HYPERTENSIVE EMERGENCY Status: Acute (2) Neck pain Status: Acute (3) Stage 3 chronic kidney disease Code(s): N18.3 - CHRONIC KIDNEY DISEASE, STAGE 3 (MODERATE) Status: Chronic (4) DM2 (diabetes mellitus, type 2) Status: Chronic (5) Anemia in chronic kidney disease (CKD) Code(s): N18.9 - CHRONIC KIDNEY DISEASE, UNSPECIFIED; D63.1 - ANEMIA IN CHRONIC KIDNEY DISEASE Status: Acute - Plan Continue labetalol to 400 mg PO BID, increase amlodipine 10 mg daily, increase clonidine to 0.3 mg daily. Trial gabapentin. MRI brain nil acute. Continue accuchecks and insulin sliding scale. Likely home in 24 h.
[2019-10-13] MEDS: Lidocaine 5% Patch TD SCH (16:53)
[2019-10-13] MEDS: Atorvastatin Calcium 40 MG TAB PO SCH (20:14)
[2019-10-14 04:31] LABS: #Basophils 0.1 thou/uL (0.0-0.2); #Eosinphils 0.2 thou/uL (0.0-0.7); #Lymphocytes 1.9 thou/uL (1.20-3.40); #Monocytes 0.7 thou/uL (0.11-0.59); #Neutrophils 3.9 thou/uL (1.40-6.50); %Basophils 0.8 % (0.0-1.0); %Eosinophils 2.8 % (0.0-10.0); %Lymphocytes 27.5 % (21.0-51.0); %Monocytes 11.1 % (0.0-10.0); %Neutrophils 57.9 % (42.0-75.0); Hemoglobin 8.1 g/dL (12.0-16.0); Mean Corpuscular HGB CONC 30.4 g/dL (32.0-36.0); Mean Corpuscular Hemoglobin 21.6 pg (27.0-31.0); Mean Corpuscular Volume 71.1 fL (78.0-98.0); Mean Platelet Volume 7.8 fL (7.4-10.4); Platelet Count 359 thou/uL (130-400); RBC Distribution Width 15.2 % (11.5-14.5); Red Blood Cell (RBC) Count 3.74 mill/uL (4.20-5.40); White Blood Cell (WBC) Count 6.7 thou/uL (4.8-10.8)
[2019-10-14 04:59] LABS: Anion Gap 10 mmol/L (10-20); BUN (Urea Nitrogen) 16 mg/dL (9.8-20.1); Calc. Creatinine Clearance 25 mL/min (70-130); Calcium 7.5 mg/dL (7.8-10.44); Carbon Dioxide 26 mmol/L (23-31); Chloride 105 mmol/L (98-107); Estimated GFR-MDRD 26; Glucose 83 mg/dL (80-115); Potassium 4.2 mmol/L (3.5-5.1); Sodium 137 mmol/L (136-145)
[2019-10-14] MEDS: Lidocaine Patch Removal 1 EACH TOP SCH (05:54)
[2019-10-14] MEDS: Ferrous Sulfate 325 MG TAB PO SCH (08:41)
[2019-10-14] MEDS: Amlodipine 10 MG TAB PO SCH (08:41)
[2019-10-14] MEDS: hydrALAZINE 25 MG TAB PO SCH ×2 (08:44→15:09)
[2019-10-14] MEDS: Labetalol 100 MG TAB PO SCH (08:44)
[2019-10-14] MEDS: Enoxaparin Sodium 30 MG/0.3 ML SYRINGE SC SCH (08:44)
[2019-10-14] MEDS: cloNIDine 0.3 MG TAB PO SCH ×2 (08:44→15:08)
[2019-10-14] MEDS: FERRALET PO SCH (08:45)
[2019-10-14] MEDS ORDERED: Gabapentin 100 MG CAP PO SCH (09:00)
[2019-10-14] MEDS: Insulin Glargine 15 UNITS in Pre-Filled Syringe 1 EACH SC SCH (09:24)
--- NOTE | 2019-10-14 10:47 | PRG ---
DATE OF SERVICE: 10/14/2019 SUBJECTIVE: This is a 64-year-old female, being seen for acute kidney injury. The patient denied nausea, vomiting, or chest pain. OBJECTIVE: GENERAL: The patient is awake and alert. VITAL SIGNS: Afebrile, pulse 75, breathing 16, blood pressure was 120/59. GENERAL APPEARANCE AND MENTAL STATUS: Fair. HEAD/NECK: Normocephalic. Atraumatic. EYES: EOMI. No deformity. EARS: Clear. No ulcers. NOSE: Intact. No lesions. MOUTH: Clear. No discharge. THROAT: Clear. No exudate. LUNGS: Clear. No crackles. CARDIAC: S1, S2. No rub. ABDOMEN: Benign. Bowel sounds positive. GENITALIA/RECTUM: Hodges absent. BACK/EXTREMITIES: Edema 0+. NEUROLOGICAL: Alert and motor intact. SKIN: LYMPHATICS: LABORATORY DATA: Hemoglobin 8.1 and creatinine 2.2. ASSESSMENT AND RECOMMENDATIONS: 1. Chronic kidney disease stage 4, stable. 2. Hypertension, stable. 3. Anemia, stable. 4. Medication based on GFR appropriate. Job ID: [id number]
[2019-10-14] MEDS ORDERED: Furosemide 20 MG TAB PO SCH (11:15)
[2019-10-14 11:26] VITALS: TEMP 99
[2019-10-14] MEDS: HumaLOG 300 UNITS/3 ML VIAL SC PRN (12:06)
[2019-10-14 14:46] VITALS: BMI 26.4
[2019-10-14 18:00] VITALS: BP 141/64
[2019-10-15] MEDS ORDERED: Furosemide 20 MG TAB PO SCH (09:00)
--- NOTE | 2019-10-15 09:25 | DIS ---
DATE OF ADMISSION: 10/09/2019 DATE OF DISCHARGE: 10/14/2019 PRIMARY CARE PROVIDER: [facility]. DISCHARGE DIAGNOSES: 1. Hypertensive emergency. 2. Neuropathic pain. 3. Cervical spine degenerative disease. CONDITION OF PATIENT ON THE DAY OF DISCHARGE: Stable. I assessed Ms. Roberts on the day of discharge. She denies any chest pain or shortness of breath. Vital signs are stable. S1 and S2 are heard, regular. Lungs are clear to auscultation bilaterally. CONSULTATIONS DURING THIS HOSPITALIZATION: Pulmonary and Critical Care Medicine, Dr. Leighton Loredo and Nephrology, Dr. Ortiz. POST-ACUTE CARE FOLLOWUP: With primary care provider in [address] Ortiz in 10 days. DISCHARGE MEDICATIONS: 1. Atorvastatin 40 mg at bedtime. 2. Humalog Mix 50/50 vial 30 units in the morning and 10 units at bedtime. 3. Ferralet 90 one tablet daily. 4. Omeprazole 20 mg 2 times a day. 5. Clonidine 0.3 mg 3 times a day. 6. Lasix 20 mg daily. 7. Gabapentin 300 mg at bedtime. 8. Hydralazine 100 mg 3 times a day. 9. Labetalol 400 mg 2 times a day. DIET: Heart healthy, low-sodium and renal. ACTIVITY: As tolerated. HOSPITAL COURSE: Ms. Roberts is a pleasant 64-year-old lady, who was admitted to [facility] on 10/09/2019, for hypertensive emergency. She was admitted to the Critical Care Unit and was treated with Cardene drip. She was started on oral antihypertensives and transferred to telemetry floor. She was seen by Nephrology Service. She continued to have episodes of headache and elevated blood pressure. Cervical spine x-ray showed degenerative disease. MRI of the brain showed chronic white matter change, no acute intracranial abnormality. She continued to have episodes of headache as well as elevated blood pressures. She was started on gabapentin with improvement in her symptoms. She is advised to check her blood pressure and heart rate 3 times a day and show the readings to her primary care provider. She is also advised to have further workup for refractory hypertension done through primary care provider's office. She became edematous and was started on furosemide. She has been advised to follow up with Nephrology Service for her chronic kidney disease. LABORATORY DATA: On the day of discharge, she has white count 6700, hemoglobin 8.1, platelet count 359,000. Sodium 137, potassium 4.2, and creatinine 2.28. Many thanks for allowing me to participate in your patient's care. Please feel free to contact me with any questions or concerns. DISCHARGE DESTINATION: Home. TIME SPENT: Total amount of time spent coordinating this discharge: 34 minutes. Job ID: [id number]
== END 2019-10-14 18:45 | disposition home or self-care (01) | DRG 305 ==
LOC: ERS 10:36 → CCU 13:51 → 2NO 10-10 20:27
PROVIDERS: ADMIT Internal Medicine; ATTEND Internal Medicine
DX: I16.1 Hypertensive emergency (principal); N17.9 Acute kidney failure, unspecified; N18.4 Chronic kidney disease, stage 4 (severe); K21.9 Gastro-esophageal reflux disease without esophagitis; D50.9 Iron deficiency anemia, unspecified; E11.22 Type 2 diabetes mellitus with diabetic chronic kidney disease; Z66 Do not resuscitate; I13.10 Hypertensive heart and chronic kidney disease without heart failure, with stage 1 through stage 4 chronic kidney disease, or unspecified chronic kidney disease; E11.40 Type 2 diabetes mellitus with diabetic neuropathy, unspecified; K59.03 Drug induced constipation; T45.4X5A Adverse effect of iron and its compounds, initial encounter; M06.9 Rheumatoid arthritis, unspecified; M54.2 Cervicalgia; D63.1 Anemia in chronic kidney disease; M16.10 Unilateral primary osteoarthritis, unspecified hip; Z90.710 Acquired absence of both cervix and uterus; Z88.2 Allergy status to sulfonamides; Z88.5 Allergy status to narcotic agent; Z79.4 Long term (current) use of insulin; Z79.899 Other long term (current) drug therapy
CPT/HCPCS: 36415; 36416; 70450; 70551; 71045; 72040; 72050; 80048; 80053; 81003; 81015; 83690; 83880; 84484; 85025; 86850; 86900; 86901; 93005; 93010; 94760; 96365; 96366; 96375; 96376; 99292; J1200; J1650; J1815; J1940; J2270; J2405; J7050; Q0163

== ENCOUNTER 2019-11-08 04:34 | Observation (INO) | payer BC, MEDICARE ==
[2019-11-08 05:10] LABS: #Eosinphils 0.2 thou/uL (0.0-0.7); #Lymphocytes 1.3 thou/uL (1.20-3.40); #Monocytes 0.5 thou/uL (0.11-0.59); #Neutrophils 3.3 thou/uL (1.40-6.50); %Basophils 0.9 % (0.0-1.0); %Eosinophils 3.1 % (0.0-10.0); %Lymphocytes 24.2 % (21.0-51.0); %Monocytes 10.2 % (0.0-10.0); %Neutrophils 61.6 % (42.0-75.0); Hemoglobin 8.2 g/dL (12.0-16.0); Mean Corpuscular HGB CONC 30.3 g/dL (32.0-36.0); Mean Corpuscular Hemoglobin 21.9 pg (27.0-31.0); Mean Corpuscular Volume 72.3 fL (78.0-98.0); Mean Platelet Volume 8.2 fL (7.4-10.4); Platelet Count 267 thou/uL (130-400); RBC Distribution Width 14.8 % (11.5-14.5); Red Blood Cell (RBC) Count 3.74 mill/uL (4.20-5.40); White Blood Cell (WBC) Count 5.3 thou/uL (4.8-10.8)
[2019-11-08 05:29] LABS: Bilirubin Negative (Negative); Blood, Urine Negative (Negative); Clarity Clear (Clear); Glucose, Urine (Dipstick) Greater than 1000 mg/dL (Negative); Leukocyte Negative Leu/uL (Negative); Mucous/LPF Rare LPF (<2+); Nitrite Negative (Negative); Protein, Urine (Dipstick) 300 mg/dL (Neg-Trace); RBC/HPF 0-3 HPF (0-3); Squamous Epithelial 0-3 HPF (0-3); Urobilinogen Normal mg/dL (Less than 2); WBC/HPF 21-50 HPF (0-3)
[2019-11-08 05:33] LABS: Bacteria/HPF 1+ HPF (None Seen)
[2019-11-08 05:33] LABS: ALT (SGPT) 16 U/L (8-55); AST (SGOT) 17 U/L (5-34); Albumin 2.6 g/dL (3.4-4.8); Alkaline Phosphatase 91 U/L (40-110); Anion Gap 12 mmol/L (10-20); BUN (Urea Nitrogen) 26 mg/dL (9.8-20.1); Bilirubin, Total 0.2 mg/dL (0.2-1.2); Calc. Creatinine Clearance 0 mL/min (70-130); Calcium 7.8 mg/dL (7.8-10.44); Carbon Dioxide 24 mmol/L (23-31); Chloride 104 mmol/L (98-107); Estimated GFR-MDRD 24; Globulin 3.2 g/dL (2.4-3.5); Glucose 504 mg/dL (80-115); Potassium 4.2 mmol/L (3.5-5.1); Protein, Total 5.8 g/dL (6.0-8.3); Sodium 136 mmol/L (136-145)
[2019-11-08 05:40] LABS: Amphetamine Not Detected (NotDetected); Barbiturates Screen Not Detected (NotDetected); Benzodiazepine Screen Not Detected (NotDetected); Cocaine Metabolite Screen Not Detected (NotDetected); Medtox Reader # READER 4; Methadone Not Detected (NotDetected); Methamphetamine Not Detected (NotDetected); Opiate Screen Not Detected (NotDetected); Oxycodone Screen Not Detected (NotDetected); Phencyclidine (PCP) Not Detected (NotDetected); THC/Cannabinoid Screen Not Detected (NotDetected); Tricyclic Screen Not Detected (NotDetected)
[2019-11-08 05:41] LABS: Medtox Control Line Valid? VALID (VALID)
[2019-11-08] MEDS ORDERED: hydrALAZINE 25 MG TAB ONE ×2 (06:31→17:22)
[2019-11-08] MEDS ORDERED: cefTRIAXone\\ROCEPHIN 2 GM VIAL ONE (06:31)
[2019-11-08] MEDS ORDERED: Labetalol 100 MG TAB PO SCH ×2 (06:45→14:45)
[2019-11-08] MEDS ORDERED: Acetaminophen 500 MG TAB ONE (06:50)
--- NOTE | 2019-11-08 07:50 | CT ---
PRELIMINARY REPORT/[facility]/EMERGENCY AFTER HOURS PROCEDURE: History: Syncope. CT head without contrast. Comparison: None. Findings: There is no evidence of acute intracranial hemorrhage. The ventricular system is not dilate d. No masses, mass effect or focal fluid collections are noted. Mild periventricular chronic white matter ischemic changes. Ahmadi-white matter differentiation is well-maintained. Visualized por tions of the orbits are normal in appearance. Minimal sinus mucosal thickening. The calvarium and overlying soft tissues are unremarkable. Impression: No evidence of acute intracranial process. ELECTRONICALLY SIGNED BY: Errol Fox MD Nov 08, 2019 6:05:30 AM SUPERVISOR WATER SOFTENER SERVICE FINAL REPORT CT BRAIN NONCONTRAST: Emergency after-hours study. DATE: 11/08/2019 HISTORY: A 64-year-old female status post syncope. FINDINGS: There is no evidence of acute intra-axial or extra-axial hemorrhage. There is no midline shift or any other mass effect. There is no extra-axial fluid collection. There is no evidence of obstructive hydrocephalus. Calvarium is intact. Agreement with preliminary report by [facility]. IMPRESSION: No acute intracranial findings. Transcribed Date/Time: 11/08/2019 7:57 AM
--- NOTE | 2019-11-08 07:50 | RAD ---
RADIOGRAPH CHEST 1 VIEW: DATE: 11/08/2019 HISTORY: 64-year-old female status post syncope and collapse. Concern for aspiration. FINDINGS: There are no airspace densities, pulmonary edema, pneumothorax, or cardiomegaly. The lateral costophr enic angles are sharp. IMPRESSION: No acute cardiopulmonary findings.
--- NOTE | 2019-11-08 07:53 | CT ---
PRELIMINARY REPORT/[facility]/EMERGENCY AFTER HOURS PROCEDURE: History: Syncopal and collapse. CT cervical spine without contrast. Comparison: None. Findings: Straightening of lordosis. Mild dextroconvex curvature. Alignment is maintained. Vertebr al body heights are maintained. No evidence of acute fracture or subluxation. Mild to moderate atlantoaxial degeneration. Left C2-3 bony facet fusion. Moderate left and mild right facet arthropa thy throughout. Significant discogenic and uncovertebral degeneration at C3-4, C4-5, C5-6 and C6-7. Prominent posterior disc osteophyte complexes at these levels result in moderate stenosis. So ft tissues of the neck are unremarkable. The lung apices are clear. Impression: 1. No evidence of acute fracture or subluxation. 2. Moderate degenerative changes throughout as above. 3. Straightening of lordosis may reflect patient positioning versus spasm. ELECTRONICALLY SIGNED BY: Errol Fox MD Nov 08, 2019 6:16:39 AM SOLAR INSTALLATION SUPERVISOR FINAL REPORT CT CERVICAL SPINE NONCONTRAST: DATE: 11/08/2019/ HISTORY: cervical trauma due to fall due to syncope in 64-year-old female. FINDINGS: There are no jumped or perched facets. There is no evidence of acute fracture. The vertebral body hei ghts are maintained. There is no prevertebral soft tissue swelling. There are degenerative disc changes and facet osteoarthrosis. Agreement with preliminary report by [facility]. IMPRESSION: 1) Cervical spondylosis. 2) no evidence of acute fracture or acute traumatic subluxation. Transcribed Date/Time: 11/08/2019 8:00 AM
[2019-11-08] MEDS ORDERED: Ondansetron PF 4 MG/2 ML Vial IVP PRN (08:35)
[2019-11-08] MEDS ORDERED: Acetaminophen 325 MG TAB PO PRN (08:35)
[2019-11-08 08:47] LABS: Troponin I Less than 0.010 ng/mL (< 0.028)
[2019-11-08] MEDS ORDERED: Labetalol HCl 100 MG/20 ML VIAL SLOW IVP PRN (08:50)
[2019-11-08] MEDS ORDERED: Morphine 2 MG/ML SYRINGE ONE (08:55)
[2019-11-08] MEDS ORDERED: Dextrose 50% Abboject 50 ML SYRINGE SLOW IVP PRN (08:56)
[2019-11-08] MEDS ORDERED: Dextrose 5% in Water 1,000 ML IV PRN (08:56)
--- NOTE | 2019-11-08 09:02 | PDOC.HHP ---
Hospitalist HPI - History of Present Illness dizziness, tinnitus History of Present Illness: Ms. Roberts is a 64-year-old lady with type 2 diabetes mellitus, CKD, hypertension , who presents to the emergency room with headache, dizziness, and tinnitus. She stated that early this morning she had severe ringing in her ears which sounded like bells. She tried to get up out of her bed and fell onto the carpet because she was dizzy. She states that she did not lose consciousness nor did she hit her head. She states that she feels that the room is spinning when she moves her head. She said that the headache is mainly right-sided, going into the neck, associated with sensitivity to light, severity is 10 out of 10. She states that she feels her head is bounding. Of note, she was admitted a few weeks ago for similar complaint due to hypertensive urgency and headache. She has had chronic neck pain problems and is taking gabapentin for what appears to be cervical radiculopathy due to her diabetes. She denies any fever or chills, CT done in the ED this visit shows no acute intracranial abnormalities. She had an MRI study done on 10/12/2019 which demonstrated no acute intracranial abnormality. Hospitalist ROS - Review of Systems Constitutional: denies: fever, chills, sweats, weakness, malaise, other Eyes: denies: pain, vision change, conjunctivae inflammation, eyelid inflammation, redness, other ENT: reports: other (ringing in ears). denies: ear pain, ear discharge, nose pain, nose discharge, nose congestion, mouth pain, mouth swelling, throat pain, throat swelling Respiratory: denies: cough, dry, shortness of breath, hemoptysis, SOB with excertion, pleuritic pain, sputum, wheezing, other Cardiovascular: denies: chest pain, palpitations, orthopnea, paroxysmal noc. dyspnea, edema, light headedness, other Gastrointestinal: denies: nausea, vomiting, abdominal pain, diarrhea, constipation, melena, hematochezia, other Genitourinary: denies: dysuria, frequency, incontinence, hematuria, retention, other Musculoskeletal: reports: neck pain. denies: shoulder pain, arm pain, back pain , hand pain, leg pain, foot pain, other Skin: denies: rash, lesions, jef, bruising, other Neurological: denies: weakness, numbness, incoordination, change in speech, confusion, seizures, other - Medication Medications: Medication Instructions Recorded Confirmed Type Atorvastatin Calcium 40 mg PO HS 10/09/19 10/09/19 History Insulin Lispro Protamin/Lispro 10 units SQ HS 10/09/19 10/09/19 History [HumaLOG Mix 50/50 Vial] Insulin Lispro Protamin/Lispro 30 unit SQ DAILY-AC 10/09/19 10/09/19 History [HumaLOG Mix 50/50 Vial] Iron Carb,Gl/FA/B12/C/Docusate 1 tablet PO DAILY 10/09/19 10/09/19 History [Ferralet 90] Omeprazole 20 mg PO BID 10/09/19 10/09/19 History Furosemide [Lasix] 20 mg PO DAILY #30 tab 10/14/19 Rx Gabapentin 300 mg PO HS #30 capsule 10/14/19 Rx Labetalol HCl 400 mg PO BID #120 tablet 10/14/19 Rx cloNIDine [Catapres] 0.3 mg PO TID #90 tab 10/14/19 Rx hydrALAZINE HCl 100 mg PO TID #90 tablet 10/14/19 Rx Hospitalist History - Past Medical History Source: patient Cardiac: reports: HTN Pulmonary: reports: no pertinent history FACILITY PLANNER: reports: Peripheral neuropathy Gastrointestinal: reports: no pertinent history Heme/Onc: reports: no pertinent history Hepatobiliary: reports: no pertinent history Psych: reports: no pertinent history Musculoskeletal: reports: no pertinent history Rheumatologic: reports: no pertinent history Infectious Disease: reports: no pertinent history ENT: reports: no pertinent history Renal/: reports: no pertinent history Endocrine: reports: Diabetes Dermatology: reports: no pertinent history - Past Surgical History Past Surgical History: reports: Hysterectomy - Family History Family History: reports: no pertinent history - Social History Smoking Status: Former smoker Alcohol: reports: Rare Drugs: reports: none Living Situation: With Family - Exam General Appearance: NAD, ill appearing Eye: PERRL, anicteric sclera ENT: normocephalic atraumatic, no oropharyngeal lesions, moist mucosa Neck: symmetric, no JVD, no thyromegaly, no lymphadenopathy, no carotid bruit Neck - other findings: tederness to palpation along upper trapezius into right posterior scalp Heart: RRR, no murmur, no gallops, no rubs, normal peripheral pulses Respiratory: CTAB, no wheezes, no rales, no ronchi, normal chest expansion, no tachypnea, normal percussion Gastrointestinal: soft, non-tender, non-distended, normal bowel sounds, no palpable masses, no hepatomegaly, no splenomegaly, no bruit Extremities: no cyanosis, no clubbing, no edema Skin: normal turgor, no lesions, no rashes Neurological: cranial nerve grossly intact, normal sensation to touch, no weakness, no focal deficits, no new deficit Musculoskeletal: normal tone, normal strength, no muscle wasting Psychiatric: normal affect, normal behavior, A&O x 3 Hospitalist Results - Labs Result Diagrams: 11/08/19 04:58 11/08/19 04:58 Lab results: WBC 5.3 thou/uL (4.8-10.8) 11/08/19 04:58 Hgb 8.2 g/dL (12.0-16.0) L 11/08/19 04:58 Hct 27.1 % (36.0-47.0) L 11/08/19 04:58 MCV 72.3 fL (78.0-98.0) L 11/08/19 04:58 Plt Count 267 thou/uL (130-400) 11/08/19 04:58 Neutrophils % 61.6 % (42.0-75.0) 11/08/19 04:58 Sodium 136 mmol/L (136-145) 11/08/19 04:58 Potassium 4.2 mmol/L (3.5-5.1) 11/08/19 04:58 Chloride 104 mmol/L (98-107) 11/08/19 04:58 Carbon Dioxide 24 mmol/L (23-31) 11/08/19 04:58 BUN 26 mg/dL (9.8-20.1) H 11/08/19 04:58 Creatinine 2.43 mg/dL (0.6-1.1) H 11/08/19 04:58 Glucose 504 mg/dL (80-115) H 11/08/19 04:58 Calcium 7.8 mg/dL (7.8-10.44) 11/08/19 04:58 Total Bilirubin 0.2 mg/dL (0.2-1.2) 11/08/19 04:58 AST 17 U/L (5-34) 11/08/19 04:58 ALT 16 U/L (8-55) 11/08/19 04:58 Alkaline Phosphatase 91 U/L (40-110) 11/08/19 04:58 Troponin I Less than 0.010 ng/mL (< 0.028) 11/08/19 08:13 B-Natriuretic Peptide 72.0 pg/mL (0-100) 11/08/19 04:58 Serum Total Protein 5.8 g/dL (6.0-8.3) L 11/08/19 04:58 Albumin 2.6 g/dL (3.4-4.8) L 11/08/19 04:58 Urine Ketones Negative mg/dL (Negative) 11/08/19 05:00 Urine Blood Negative (Negative) 11/08/19 05:00 Urine Nitrite Negative (Negative) 11/08/19 05:00 Ur Leukocyte Esterase Negative Carrington/uL (Negative) 11/08/19 05:00 Urine RBC 0-3 HPF (0-3) 11/08/19 05:00 Urine WBC 21-50 HPF (0-3) A 11/08/19 05:00 Ur Squamous Epith Cells 0-3 HPF (0-3) 11/08/19 05:00 Urine Bacteria 1+ HPF (None Seen) A 11/08/19 05:00 - EKG Interpretation EK lead EKG interpreted by Emergency Department Physician at time of study, 12 lead EKG shows normal sinus rhythm, Rate (beats per minute): 74, Conduction normal, ST segments normal, T waves, nonspecific abnormality, [place] normal - Radiology Interpretation CT scan - head Status: report reviewed by [place] Hospitalist H&P A/P - Problem (1) Headache Code(s): R51 - HEADACHE Status: Acute (2) Neck pain Code(s): M54.2 - CERVICALGIA Status: Acute (3) Tinnitus Code(s): H93.19 - TINNITUS, UNSPECIFIED EAR Status: Acute (4) Vertigo Code(s): R42 - DIZZINESS AND GIDDINESS Status: Acute (5) Acute worsening of stage 3 chronic kidney disease Code(s): N18.3 - CHRONIC KIDNEY DISEASE, STAGE 3 (MODERATE) Status: Acute (6) Anemia in chronic kidney disease (CKD) Code(s): N18.9 - CHRONIC KIDNEY DISEASE, UNSPECIFIED; D63.1 - ANEMIA IN CHRONIC KIDNEY DISEASE Status: Acute (7) Diabetes type 2, uncontrolled Code(s): E11.65 - TYPE 2 DIABETES MELLITUS WITH HYPERGLYCEMIA Status: Chronic (8) GERD (gastroesophageal reflux disease) Code(s): K21.9 - GASTRO-ESOPHAGEAL REFLUX DISEASE WITHOUT ESOPHAGITIS Status: Chronic (9) Hypertension Code(s): I10 - ESSENTIAL (PRIMARY) HYPERTENSION Status: Chronic Qualifiers: Hypertension type: essential hypertension Qualified Code(s): I10 - Essential (primary) hypertension - Plan Plan: For observation on telemetry. For evaluation of headache, tinnitus, and dizziness Appears that she was here in the hospital last month for similar symptoms, will continue to correct underlying blood pressure and glucose abnormalities CT scan has been reviewed and is unremarkable, she had an MRI done last month which was also unremarkable Differential includes migraine, diabetic cervical radiculopathy, and/or possible pseudotumor cerebri although this is less likely at the present time, meningitis or infectious process unlikely given chronicity of neck symptoms and lack of infxn biochemical abnormalities Consult neurology for further input. Trial of Reglan 10 mg IV and Benadryl IV 25 mg, to see if therapeutic response related to a possible migraine Resume her home gabapentin, will consider titrating up the dose as she probably has a component of diabetic cervical radiculopathy Resume her home clonidine, labetalol, and hydralazine DVT prophylaxis: SCDs CODE STATUS: Full code ACP: is the surrogate decision-maker Disposition: Observation of headache and blood pressure. Consult placed to neurology for further input.
[2019-11-08 11:27] LABS: Troponin I Less than 0.010 ng/mL (< 0.028)
[2019-11-08] MEDS: Insulin Glargine 20 UNITS in Pre-Filled Syringe 1 EACH SC SCH (13:09)
[2019-11-08] MEDS ORDERED: Morphine 4 MG/ML VIAL ONE (14:43)
[2019-11-08] MEDS ORDERED: Labetalol HCl 100 MG/20 ML VIAL ONE (14:48)
[2019-11-08] MEDS ORDERED: Labetalol 100 MG TAB ONE ×2 (14:48)
[2019-11-08] MEDS: Morphine 2 MG/ML SYRINGE SLOW IVP PRN (14:54)
[2019-11-08] MEDS ORDERED: Metoclopramide HCl 10 MG/2 ML VIAL IVP SCH (16:15)
[2019-11-08] MEDS ORDERED: diphenhydrAMINE 50 MG/ML VIAL IVP SCH (16:15)
[2019-11-08] MEDS ORDERED: diphenhydrAMINE 50 MG/ML VIAL ONE (16:26)
[2019-11-08] MEDS ORDERED: Metoclopramide HCl 10 MG/2 ML VIAL ONE (16:27)
[2019-11-08] MEDS ORDERED: cloNIDine 0.1 MG TAB ONE ×3 (17:19→17:20)
[2019-11-08] MEDS: hydrALAZINE 25 MG TAB PO SCH ×2 (17:27→20:32)
[2019-11-08] MEDS: cloNIDine 0.3 MG TAB PO SCH ×2 (17:27→20:32)
[2019-11-08 18:33] VITALS: BMI 27.1
[2019-11-08] MEDS: Atorvastatin Calcium 40 MG TAB PO SCH (20:33)
[2019-11-08] MEDS: Labetalol 100 MG TAB PO SCH (20:33)
[2019-11-08] MEDS ORDERED: Gabapentin 300 MG CAP PO SCH (21:00)
[2019-11-08] MEDS: Insulin Regular 300 UNITS/3 ML VIAL SC PRN (21:49)
[2019-11-09 04:54] LABS: #Eosinphils 0.2 thou/uL (0.0-0.7); #Monocytes 0.5 thou/uL (0.11-0.59); #Neutrophils 2.2 thou/uL (1.40-6.50); %Basophils 0.7 % (0.0-1.0); %Lymphocytes 39.7 % (21.0-51.0); %Monocytes 9.6 % (0.0-10.0); Hemoglobin 7.6 g/dL (12.0-16.0); Mean Corpuscular HGB CONC 30.1 g/dL (32.0-36.0); Mean Corpuscular Hemoglobin 21.9 pg (27.0-31.0); Mean Corpuscular Volume 72.7 fL (78.0-98.0); Mean Platelet Volume 7.9 fL (7.4-10.4); Platelet Count 258 thou/uL (130-400); RBC Distribution Width 14.7 % (11.5-14.5); Red Blood Cell (RBC) Count 3.46 mill/uL (4.20-5.40); White Blood Cell (WBC) Count 4.9 thou/uL (4.8-10.8)
[2019-11-09 05:16] LABS: Anion Gap 9 mmol/L (10-20); BUN (Urea Nitrogen) 24 mg/dL (9.8-20.1); Calc. Creatinine Clearance 28 mL/min (70-130); Carbon Dioxide 28 mmol/L (23-31); Chloride 106 mmol/L (98-107); Estimated GFR-MDRD 29; Glucose 147 mg/dL (80-115); Potassium 3.8 mmol/L (3.5-5.1); Sodium 139 mmol/L (136-145)
[2019-11-09] MEDS: cefTRIAXone\\ROCEPHIN 2 GM in Sodium Chloride 0.9% 100 ML IVPB SCH (06:15)
[2019-11-09] MEDS: cloNIDine 0.3 MG TAB PO SCH ×2 (08:32→15:36)
[2019-11-09] MEDS: Labetalol 100 MG TAB PO SCH ×2 (08:33→19:52)
[2019-11-09] MEDS: Furosemide 20 MG TAB PO SCH (08:36)
[2019-11-09] MEDS: hydrALAZINE 25 MG TAB PO SCH ×3 (08:38→19:50)
[2019-11-09] MEDS: Insulin Glargine 20 UNITS in Pre-Filled Syringe 1 EACH SC SCH (08:40)
[2019-11-09] MEDS: Insulin Regular 300 UNITS/3 ML VIAL SC PRN ×3 (11:34→21:12)
[2019-11-09] MEDS: Ketorolac Tromethamine 30 MG/ML VIAL IVP SCH ×3 (12:07→19:43)
--- NOTE | 2019-11-09 15:13 | PDOC.HOSPP ---
- Subjective Encounter Date: 11/09/19 Encounter Time: 12:30 Subjective: Still has a mild headache. States much improved after Reglan and Benadryl since yesterday. Still has neck pain. - Objective Vital Signs & Weight: Vital Signs (12 hours) Temp Pulse Resp BP Pulse Ox 11/09/19 11:35 97.9 F 87 18 137/63 97 11/09/19 08:38 81 11/09/19 08:33 81 11/09/19 08:04 81 16 161/75 H 96 11/09/19 03:56 98.5 F 76 141/61 H 97 Weight Weight 143 lb 4.8 oz I&O: 11/08/19 11/09/19 11/10/19 06:59 06:59 06:59 Intake Total 720 Output Total 700 Balance 20 Result Diagrams: 11/09/19 04:40 11/09/19 04:40 Additional Labs: Accuchecks 11/09/19 11/09/19 11/08/19 10:35 04:05 20:46 POC Glucose 227 H 177 H 344 H 11/08/19 10:50 POC Glucose 379 H Hospitalist ROS - Medication Medications: Active Medications Generic Name Dose Route Start Last Admin Trade Name Freq PRN Reason Stop Dose Admin Atorvastatin Calcium 40 mg 11/08/19 21:00 11/08/19 20:33 Lipitor PO 40 mg HS SHO Administration Clonidine 0.3 mg 11/08/19 21:00 11/09/19 08:32 Catapres PO 0.3 mg TID SHO Administration Furosemide 20 mg 11/09/19 09:00 11/09/19 08:36 Lasix PO 20 mg DAILY SHO Administration Hydralazine HCl 100 mg 11/08/19 21:00 11/09/19 08:38 Apresoline PO 100 mg TID SHO Administration Ceftriaxone Sodium 2 gm/ 100 mls @ 200 mls/hr 11/09/19 07:00 11/09/19 06:15 Sodium Chloride IVPB 100 mls Q24HR SHO Administration Insulin Glargine 20 units/ 0.2 mls @ 0 mls/hr 11/08/19 09:00 11/09/19 08:40 Miscellaneous Medication SC 0.2 mls QAM SHO Administration Insulin Human Regular 0 units 11/08/19 08:56 11/09/19 11:34 Humulin R SC 4 unit .MODERATE SLIDING SC PRN Administration Moderate Correctional Scale Insulin Human Regular 0 units 11/08/19 21:33 11/08/19 21:49 Humulin R SC 4 unit .BEDTIME SLIDING SC PRN Administration Bedtime Correctional Scale Labetalol HCl 20 mg 11/08/19 08:50 11/08/19 14:57 Normodyne SLOW IVP 20 mg Q4H PRN Administration SBP Greater Than 180 Labetalol HCl 400 mg 11/08/19 21:00 11/09/19 08:33 Normodyne PO 400 mg BID SHO Administration Morphine Sulfate 2 mg 11/08/19 08:39 11/08/19 14:54 Morphine SLOW IVP 2 mg Q4H PRN Administration Moderate to Severe Pain (6-10) Pantoprazole Sodium 40 mg 11/08/19 21:00 11/09/19 08:35 Protonix PO 40 mg BID SHO Administration Sodium Chloride 10 ml 11/08/19 09:00 11/09/19 08:42 Flush - Normal Saline IVF 10 ml Q12HR SHO Administration Sodium Chloride 10 ml 11/08/19 08:45 11/08/19 15:00 Flush - Normal Saline IVF 10 ml PRN PRN Administration Saline Flush Hosp A/P (1) Headache Code(s): R51 - HEADACHE Status: Acute (2) Neck pain Code(s): M54.2 - CERVICALGIA Status: Acute (3) Tinnitus Code(s): H93.19 - TINNITUS, UNSPECIFIED EAR Status: Acute (4) Vertigo Code(s): R42 - DIZZINESS AND GIDDINESS Status: Acute (5) Acute worsening of stage 3 chronic kidney disease Code(s): N18.3 - CHRONIC KIDNEY DISEASE, STAGE 3 (MODERATE) Status: Acute (6) Anemia in chronic kidney disease (CKD) Code(s): N18.9 - CHRONIC KIDNEY DISEASE, UNSPECIFIED; D63.1 - ANEMIA IN CHRONIC KIDNEY DISEASE Status: Acute (7) Diabetes type 2, uncontrolled Code(s): E11.65 - TYPE 2 DIABETES MELLITUS WITH HYPERGLYCEMIA Status: Chronic (8) GERD (gastroesophageal reflux disease) Code(s): K21.9 - GASTRO-ESOPHAGEAL REFLUX DISEASE WITHOUT ESOPHAGITIS Status: Chronic (9) Hypertension Code(s): I10 - ESSENTIAL (PRIMARY) HYPERTENSION Status: Chronic Qualifiers: Hypertension type: essential hypertension Qualified Code(s): I10 - Essential (primary) hypertension - Plan Coordinate reccomendations from neurology Likely the etiology is multifactorial due from migraine and diabetic cervical radiculopathy Will increase gabapentin to 600mg HS States she felt better after Reglan and Benadryl Continue other medication from home Disposition: Management of headache sxs. Coordinate further reccs with neuro.
[2019-11-09] MEDS: diphenhydrAMINE 25 MG CAP PO PRN (19:49)
[2019-11-09] MEDS: Atorvastatin Calcium 40 MG TAB PO SCH (19:51)
[2019-11-09] MEDS: Gabapentin 300 MG CAP PO SCH (19:53)
[2019-11-10] MEDS: cloNIDine 0.3 MG TAB PO SCH ×4 (00:01→20:58)
--- NOTE | 2019-11-10 00:18 | CON ---
DATE OF CONSULTATION: 11/09/2019 CONSULTING PHYSICIAN: Hospitalist Service. IMPRESSION: Migraine. PLAN: Discharge with Toradol 10 mg tablets two at onset of headache #20 and Reglan 10 mg one at onset of headache #20. Ms. Roberts is a 64-year-old woman with past history of hypertension and diabetes. She reports she is getting ready for work when she was suddenly struck by severe occipital headache associated with vertigo and nausea. She also noted some ringing in her ears. She had had a similar pain several months ago. She had a big workup at that time including CT and MRI of the brain. She was found to have some minimal degenerative changes in her neck. She might have been started on gabapentin, though she cannot really recall with certainty. This event hit her and she presented back to the emergency room. Her CT of the brain was negative. She was in normal sinus rhythm. Followup MRI of the brain was also negative for any ischemic changes. She was given Reglan and Benadryl and had an improvement in the level of pain. She received some Toradol later this morning and she is down to just a dull headache. She otherwise is not having any focal neurologic symptoms. PAST MEDICAL HISTORY: As listed above. ALLERGIES: SULFA, CODEINE, CITRIC ACID. SOCIAL HISTORY: She is . No tobacco or alcohol use. FAMILY HISTORY: Noncontributory. REVIEW OF SYSTEMS: Ten-system review of systems is otherwise negative. PHYSICAL EXAMINATION: GENERAL: She is a well-nourished, middle-aged woman, in no acute distress. VITAL SIGNS: Blood pressure 158/65, pulse 84, respirations 13, temperature 97.8. HEENT: Pupils are equal and reactive. Conjunctivae clear. Cranium, normocephalic and atraumatic. No cranial tenderness was elicited. NECK: Supple. EXTREMITIES: No cyanosis. NEUROLOGIC: She is alert and appropriate. Her speech is fluent and clear. Cranial nerves are intact. Motor exam shows equal general engineer strength. Sensations intact to light touch. No abnormal movements were seen. SUMMARY: This is a 64-year-old woman with recurrent severe headache associated with nausea, vomiting, dizziness, and tinnitus. Her workup is negative. The overall picture would appear consistent with migraine. She is feeling much better. I would be happy to follow up with her as an outpatient. Job ID: [id number]
[2019-11-10] MEDS: Ketorolac Tromethamine 30 MG/ML VIAL IVP SCH ×2 (02:40→11:09)
[2019-11-10 04:45] LABS: #Eosinphils 0.2 thou/uL (0.0-0.7); #Lymphocytes 2.1 thou/uL (1.20-3.40); #Monocytes 0.6 thou/uL (0.11-0.59); #Neutrophils 2.3 thou/uL (1.40-6.50); %Basophils 0.7 % (0.0-1.0); %Eosinophils 4.3 % (0.0-10.0); %Lymphocytes 40.7 % (21.0-51.0); %Neutrophils 43.3 % (42.0-75.0); Hemoglobin 7.7 g/dL (12.0-16.0); Mean Corpuscular HGB CONC 30.5 g/dL (32.0-36.0); Mean Corpuscular Hemoglobin 22.2 pg (27.0-31.0); Mean Corpuscular Volume 72.6 fL (78.0-98.0); Mean Platelet Volume 7.8 fL (7.4-10.4); Platelet Count 244 thou/uL (130-400); RBC Distribution Width 14.6 % (11.5-14.5); Red Blood Cell (RBC) Count 3.48 mill/uL (4.20-5.40); White Blood Cell (WBC) Count 5.2 thou/uL (4.8-10.8)
[2019-11-10 05:04] LABS: Anion Gap 10 mmol/L (10-20); BUN (Urea Nitrogen) 29 mg/dL (9.8-20.1); Calc. Creatinine Clearance 24 mL/min (70-130); Calcium 7.9 mg/dL (7.8-10.44); Carbon Dioxide 25 mmol/L (23-31); Chloride 109 mmol/L (98-107); Estimated GFR-MDRD 25; Glucose 86 mg/dL (80-115); Potassium 3.9 mmol/L (3.5-5.1); Sodium 140 mmol/L (136-145)
[2019-11-10] MEDS: cefTRIAXone\\ROCEPHIN 2 GM in Sodium Chloride 0.9% 100 ML IVPB SCH (06:07)
[2019-11-10] MEDS: Furosemide 20 MG TAB PO SCH (09:18)
[2019-11-10] MEDS: hydrALAZINE 25 MG TAB PO SCH ×3 (09:18→20:57)
[2019-11-10] MEDS: Labetalol 100 MG TAB PO SCH ×2 (09:19→20:57)
[2019-11-10] MEDS: Insulin Glargine 20 UNITS in Pre-Filled Syringe 1 EACH SC SCH (09:20)
[2019-11-10] MEDS: Insulin Regular 300 UNITS/3 ML VIAL SC PRN ×2 (11:21→18:01)
[2019-11-10] MEDS ORDERED: Amlodipine 10 MG TAB PO SCH (12:30)
--- NOTE | 2019-11-10 15:15 | CON ---
DATE OF CONSULTATION: REASON FOR CONSULTATION: Elevated creatinine. HISTORY OF PRESENT ILLNESS: This is a 64-year-old female with a baseline creatinine in the 2 due to the diabetic nephropathy, presented for uncontrolled hypertension. The patient denies any nausea, vomiting, or chest pain. PAST MEDICAL HISTORY: Significant for hypertension, anemia, diabetic nephropathy, history of kidney biopsy, history of chronic headaches, and history of hysterectomy. SOCIOECONOMIC HISTORY: No alcohol or drug use. FAMILY HISTORY: Negative for ESRD. ALLERGIES: REVIEWED. MEDICATIONS: Home medications list reviewed. Hospital medications list reviewed. REVIEW OF SYSTEMS: Fifteen-point review of system was performed and negative except for positives noted above. HEENT: Eyes intact, no diplopia. Ears: No hearing loss or earache. Nose: No discharge or bleeding. CHEST: No cough or phlegm. ABDOMEN: No nausea or vomiting. GENITOURINARY: No hematuria. No Hodges catheter. MUSCULOSKELETAL: No low back pain. No joint swelling or pain. NEUROLOGICAL: No syncope. No seizures. SKIN: No complaints of rash or itching. PSYCHIATRIC: No depression. CONSTITUTIONAL: No weight loss or loss of appetite. PHYSICAL EXAMINATION: GENERAL: On examination, the patient is awake and alert. VITAL SIGNS: Afebrile, pulse 75, breathing at 16, blood pressure 168/79. HEENT: Head normocephalic and atraumatic. Eyes intact, no ulcers. Nose intact, no ulcers. Ears intact, no ulcers. NECK: Supple. No JVD. CHEST: Symmetrical and clear. CARDIOVASCULAR: Shows S1 and S2, no rub, no murmur. GASTROINTESTINAL: Abdomen is soft, bowel sounds positive. EXTREMITIES: Show no edema or ulcers. SKIN: Shows no rash or petechiae. MUSCULOSKELETAL: Shows no joint swelling or stiffness. GENITOURINARY: Shows no Hodges or CVA tenderness. NEUROLOGIC: Motor intact. Cranial nerves intact. LABORATORY DATA: Reviewed. ASSESSMENT AND PLAN: 1. Acute kidney injury with chronic kidney disease, multifactorial. I would recommend avoiding NSAIDs. 2. Hypertension. Titrate beta-skyler and add amlodipine. 3. Anemia. I would continue Epogen and follow up with Hematology. 4. Medication based on GFR. Stop ketorolac. Job ID: [id number]
--- NOTE | 2019-11-10 15:19 | PDOC.HOSPP ---
- Subjective Encounter Date: 11/10/19 Encounter Time: 15:18 Subjective: Continues with headache and elevated BP this AM. She sates overall her headache is better but continues with labile blood pressure. - Objective Vital Signs & Weight: Vital Signs (12 hours) Temp Pulse Resp BP BP Pulse Ox 11/10/19 15:14 94 168/79 H 11/10/19 13:42 168/79 H 11/10/19 12:37 94 194/84 H 11/10/19 11:19 91 20 200/88 H 99 11/10/19 09:19 86 195/85 H 11/10/19 09:18 86 195/85 H 11/10/19 08:25 97.5 F L 86 16 195/85 H 97 Weight Weight 143 lb 4.8 oz I&O: 11/09/19 11/10/19 11/11/19 06:59 06:59 06:59 Intake Total 720 481 100 Output Total 700 Balance 20 481 100 Result Diagrams: 11/10/19 04:30 11/10/19 04:30 Additional Labs: Accuchecks 11/10/19 11/10/19 11/10/19 10:54 07:30 06:04 POC Glucose 196 H 142 H 68 L 11/09/19 11/09/19 21:10 16:57 POC Glucose 320 H 211 H Hospitalist ROS - Review of Systems All other systems reviewed; all pertinent +/- noted in HPI/Subj - Medication Medications: Active Medications Generic Name Dose Route Start Last Admin Trade Name Freq PRN Reason Stop Dose Admin Atorvastatin Calcium 40 mg 11/08/19 21:00 11/09/19 19:51 Lipitor PO 40 mg HS SHO Administration Clonidine 0.3 mg 11/08/19 21:00 11/10/19 15:14 Catapres PO 0.3 mg TID SHO Administration Diphenhydramine HCl 25 mg 11/09/19 18:47 11/09/19 19:49 Benadryl PO 25 mg Q6H PRN Administration Itching & Insomnia Furosemide 20 mg 11/09/19 09:00 11/10/19 09:18 Lasix PO 20 mg DAILY SHO Administration Gabapentin 600 mg 11/09/19 21:00 11/09/19 19:53 Neurontin PO 600 mg HS SHO Administration Hydralazine HCl 100 mg 11/08/19 21:00 11/10/19 15:14 Apresoline PO 100 mg TID SHO Administration Ceftriaxone Sodium 2 gm/ 100 mls @ 200 mls/hr 11/09/19 07:00 11/10/19 06:07 Sodium Chloride IVPB 100 mls Q24HR SHO Administration Insulin Glargine 20 units/ 0.2 mls @ 0 mls/hr 11/08/19 09:00 11/10/19 09:20 Miscellaneous Medication SC 0.2 mls QAM SHO Administration Insulin Human Regular 0 units 11/08/19 08:56 11/10/19 11:21 Humulin R SC 2 unit .MODERATE SLIDING SC PRN Administration Moderate Correctional Scale Insulin Human Regular 0 units 11/08/19 21:33 11/09/19 21:12 Humulin R SC 4 unit .BEDTIME SLIDING SC PRN Administration Bedtime Correctional Scale Labetalol HCl 20 mg 11/08/19 08:50 11/08/19 14:57 Normodyne SLOW IVP 20 mg Q4H PRN Administration SBP Greater Than 180 Morphine Sulfate 2 mg 11/08/19 08:39 11/08/19 14:54 Morphine SLOW IVP 2 mg Q4H PRN Administration Moderate to Severe Pain (6-10) Pantoprazole Sodium 40 mg 11/08/19 21:00 11/10/19 09:20 Protonix PO 40 mg BID SHO Administration Sodium Chloride 10 ml 11/08/19 09:00 11/10/19 09:20 Flush - Normal Saline IVF 10 ml Q12HR SHO Administration Sodium Chloride 10 ml 11/08/19 08:45 11/08/19 15:00 Flush - Normal Saline IVF 10 ml PRN PRN Administration Saline Flush - Exam General Appearance: NAD, awake alert Eye: PERRL, anicteric sclera ENT: normocephalic atraumatic, no oropharyngeal lesions, moist mucosa Neck: supple, symmetric, no JVD, no thyromegaly, no lymphadenopathy, no carotid bruit Heart: RRR, no murmur, no gallops, no rubs, normal peripheral pulses Respiratory: CTAB, no wheezes, no rales, no ronchi, normal chest expansion, no tachypnea, normal percussion Gastrointestinal: soft, non-tender, non-distended, normal bowel sounds, no palpable masses, no hepatomegaly, no splenomegaly, no bruit Extremities: no cyanosis, no clubbing, no edema Skin: normal turgor, no lesions, no rashes Neurological: cranial nerve grossly intact, normal sensation to touch, no weakness, no focal deficits, no new deficit Musculoskeletal: normal tone, normal strength, no muscle wasting Psychiatric: normal affect, normal behavior, A&O x 3 Hosp A/P (1) Headache Code(s): R51 - HEADACHE Status: Acute (2) Neck pain Code(s): M54.2 - CERVICALGIA Status: Acute (3) Tinnitus Code(s): H93.19 - TINNITUS, UNSPECIFIED EAR Status: Acute (4) Vertigo Code(s): R42 - DIZZINESS AND GIDDINESS Status: Acute (5) Acute worsening of stage 3 chronic kidney disease Code(s): N18.3 - CHRONIC KIDNEY DISEASE, STAGE 3 (MODERATE) Status: Acute (6) Anemia in chronic kidney disease (CKD) Code(s): N18.9 - CHRONIC KIDNEY DISEASE, UNSPECIFIED; D63.1 - ANEMIA IN CHRONIC KIDNEY DISEASE Status: Acute (7) Diabetes type 2, uncontrolled Code(s): E11.65 - TYPE 2 DIABETES MELLITUS WITH HYPERGLYCEMIA Status: Chronic (8) GERD (gastroesophageal reflux disease) Code(s): K21.9 - GASTRO-ESOPHAGEAL REFLUX DISEASE WITHOUT ESOPHAGITIS Status: Chronic (9) Hypertension Code(s): I10 - ESSENTIAL (PRIMARY) HYPERTENSION Status: Chronic Qualifiers: Hypertension type: essential hypertension Qualified Code(s): I10 - Essential (primary) hypertension - Plan Coordinate recommendations from neurology Likely the etiology is multifactorial due from migraine and diabetic cervical radiculopathy Continjue gabapentin to 600mg HS Add amlodipine for blood pressure, 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 Continue other medication from home Disposition: Management of headache sxs. Coordinate further reccs with neuro. Coordinate with nephro, likely d/c in next 24 hours.
[2019-11-10] MEDS: diphenhydrAMINE 25 MG CAP PO PRN (18:07)
[2019-11-10] MEDS: Morphine 2 MG/ML SYRINGE SLOW IVP PRN (18:07)
[2019-11-10] MEDS: Gabapentin 300 MG CAP PO SCH (20:57)
[2019-11-10] MEDS: Atorvastatin Calcium 40 MG TAB PO SCH (20:58)
[2019-11-10] MEDS: HYDROcodone/Acetaminophen 5/325 mg Tablet PO PRN (20:58)
[2019-11-11 05:19] LABS: Anion Gap 11 mmol/L (10-20); BUN (Urea Nitrogen) 32 mg/dL (9.8-20.1); Calc. Creatinine Clearance 21 mL/min (70-130); Carbon Dioxide 25 mmol/L (23-31); Chloride 107 mmol/L (98-107); Estimated GFR-MDRD 21; Glucose 317 mg/dL (80-115); Potassium 4.9 mmol/L (3.5-5.1); Sodium 138 mmol/L (136-145)
[2019-11-11] MEDS: cefTRIAXone\\ROCEPHIN 2 GM in Sodium Chloride 0.9% 100 ML IVPB SCH (06:04)
[2019-11-11] MEDS: Insulin Regular 300 UNITS/3 ML VIAL SC PRN ×3 (06:47→20:46)
[2019-11-11] MEDS: Labetalol 100 MG TAB PO SCH ×2 (09:25→20:35)
[2019-11-11] MEDS: hydrALAZINE 25 MG TAB PO SCH ×3 (09:26→20:34)
[2019-11-11] MEDS: Amlodipine 10 MG TAB PO SCH (09:26)
[2019-11-11] MEDS: cloNIDine 0.3 MG TAB PO SCH ×3 (09:27→20:31)
[2019-11-11] MEDS: Furosemide 20 MG TAB PO SCH (09:27)
[2019-11-11] MEDS: Insulin Glargine 20 UNITS in Pre-Filled Syringe 1 EACH SC SCH (09:27)
--- NOTE | 2019-11-11 11:53 | PRG ---
DATE OF SERVICE: 11/11/2019 SUBJECTIVE: This is a 64-year-old female, being seen for acute kidney injury. The patient denies any nausea, vomiting, or chest pain. PHYSICAL EXAMINATION: General: The patient is awake and alert. Vital Signs: Afebrile, pulse 64, breathing 16, blood pressure 168/73. HEENT: Head normocephalic and atraumatic. Eyes intact, no ulcers. Nose intact, no ulcers. Ears intact, no ulcers. Neck: Supple. No JVD. Chest: Symmetrical and clear. Cardiovascular: Shows S1 and S2, no rub, no murmur. Gastrointestinal: Abdomen is soft, bowel sounds positive. Extremities: Show no edema or ulcers. Skin: Shows no rash or petechiae. Musculoskeletal: Shows no joint swelling or stiffness. Genitourinary: Shows no Hodges or CVA tenderness. Neurologic: Motor intact. Cranial nerves intact. LABORATORY DATA: Labs show hemoglobin 7.7, creatinine is 2.7. ASSESSMENT AND RECOMMENDATIONS: 1. Acute kidney injury with chronic kidney disease stage 4, multifactorial. Avoid NSAID. 2. Hypertension, stable. 3. Anemia, stable. 4. Medication based on GFR appropriate. The patient will require transfusion if the hemoglobin is less than 7.5. Job ID: [id number]
--- NOTE | 2019-11-11 17:31 | PDOC.HOSPP ---
- Subjective Encounter Date: 11/11/19 Encounter Time: 17:28 Subjective: Still continues wtih mild headache this AM. States is much better. - Objective Vital Signs & Weight: Vital Signs (12 hours) Temp Pulse Pulse Pulse Resp BP BP 11/11/19 14:45 98.4 F 81 16 11/11/19 14:40 82 168/73 H 11/11/19 11:35 98.4 F 82 18 11/11/19 10:33 87 87 120/58 L 11/11/19 09:27 168/73 H 11/11/19 09:26 84 11/11/19 09:25 84 11/11/19 08:00 98.1 F 84 16 BP BP BP BP Pulse Ox 11/11/19 14:45 127/59 L 95 11/11/19 14:40 11/11/19 11:35 148/67 H 94 L 11/11/19 10:33 127/58 L 11/11/19 09:27 11/11/19 09:26 11/11/19 09:25 11/11/19 08:00 168/73 H 153/72 H 158/69 H 97 Weight Weight 143 lb 4.8 oz I&O: 11/10/19 11/11/19 11/12/19 06:59 06:59 06:59 Intake Total 481 1050 Balance 481 1050 Result Diagrams: 11/10/19 04:30 11/11/19 04:40 Additional Labs: Accuchecks 11/11/19 11/11/19 11/10/19 11:08 06:41 20:43 POC Glucose 178 H 288 H 264 H Hospitalist ROS - Review of Systems All other systems reviewed; all pertinent +/- noted in HPI/Subj - Medication Medications: Active Medications Generic Name Dose Route Start Last Admin Trade Name Freq PRN Reason Stop Dose Admin Hydrocodone Bitart/Acetaminophen 1 tab 11/10/19 20:31 11/10/19 20:58 [place] 5/325 PO 1 tab Q4H PRN Administration Moderate Pain (4-6) Amlodipine Besylate 10 mg 11/11/19 09:00 11/11/19 09:26 Norvasc PO 10 mg DAILY SHO Administration Atorvastatin Calcium 40 mg 11/08/19 21:00 11/10/19 20:58 Lipitor PO 40 mg HS SHO Administration Clonidine 0.3 mg 02/24/20 21:00 11/11/19 14:40 Catapres PO 0.3 mg TID SOH Administration Diphenhydramine HCl 25 mg 11/09/19 18:47 11/10/19 18:07 Benadryl PO 25 mg Q6H PRN Administration Itching & Insomnia Furosemide 20 mg 11/09/19 09:00 11/11/19 09:27 Lasix PO 20 mg DAILY SHO Administration Gabapentin 600 mg 11/09/19 21:00 11/10/19 20:57 Neurontin PO 600 mg HS SHO Administration Hydralazine HCl 100 mg 11/08/19 21:00 11/11/19 14:40 Apresoline PO 100 mg TID SHO Administration Ceftriaxone Sodium 2 gm/ 100 mls @ 200 mls/hr 11/09/19 07:00 11/11/19 06:04 Sodium Chloride IVPB 100 mls Q24HR SHO Administration Insulin Glargine 20 units/ 0.2 mls @ 0 mls/hr 11/08/19 09:00 11/11/19 09:27 Miscellaneous Medication SC 0.2 mls QAM SHO Administration Insulin Human Regular 0 units 11/08/19 08:56 11/11/19 06:47 Humulin R SC 6 unit .MODERATE SLIDING SC PRN Administration Moderate Correctional Scale Insulin Human Regular 0 units 11/08/19 21:33 11/09/19 21:12 Humulin R SC 4 unit .BEDTIME SLIDING SC PRN Administration Bedtime Correctional Scale Labetalol HCl 20 mg 11/08/19 08:50 11/08/19 14:57 Normodyne SLOW IVP 20 mg Q4H PRN Administration SBP Greater Than 180 Labetalol HCl 600 mg 11/10/19 21:00 11/11/19 09:25 Normodyne PO 600 mg BID SHO Administration Morphine Sulfate 2 mg 11/08/19 08:39 11/10/19 18:07 Morphine SLOW IVP 2 mg Q4H PRN Administration Moderate to Severe Pain (6-10) Pantoprazole Sodium 40 mg 11/08/19 21:00 11/11/19 09:26 Protonix PO 40 mg BID SHO Administration Sodium Chloride 10 ml 11/08/19 09:00 11/11/19 09:28 Flush - Normal Saline IVF 10 ml Q12HR SHO Administration Sodium Chloride 10 ml 11/08/19 08:45 11/08/19 15:00 Flush - Normal Saline IVF 10 ml PRN PRN Administration Saline Flush - Exam General Appearance: NAD, awake alert Eye: PERRL, anicteric sclera ENT: normocephalic atraumatic, no oropharyngeal lesions, moist mucosa Neck: supple, symmetric, no JVD, no thyromegaly, no lymphadenopathy, no carotid bruit Heart: RRR, no murmur, no gallops, no rubs, normal peripheral pulses Respiratory: CTAB, no wheezes, no rales, no ronchi, normal chest expansion, no tachypnea, normal percussion Gastrointestinal: soft, non-tender, non-distended, normal bowel sounds, no palpable masses, no hepatomegaly, no splenomegaly, no bruit Extremities: no cyanosis, no clubbing, no edema Skin: normal turgor, no lesions, no rashes Neurological: cranial nerve grossly intact, normal sensation to touch, no weakness, no focal deficits, no new deficit Musculoskeletal: normal tone, normal strength, no muscle wasting Psychiatric: normal affect, normal behavior, A&O x 3 Hosp A/P (1) Headache Code(s): R51 - HEADACHE Status: Acute (2) Neck pain Code(s): M54.2 - CERVICALGIA Status: Acute (3) Tinnitus Code(s): H93.19 - TINNITUS, UNSPECIFIED EAR Status: Acute (4) Vertigo Code(s): R42 - DIZZINESS AND GIDDINESS Status: Acute (5) Acute worsening of stage 3 chronic kidney disease Code(s): N18.3 - CHRONIC KIDNEY DISEASE, STAGE 3 (MODERATE) Status: Acute (6) Anemia in chronic kidney disease (CKD) Code(s): N18.9 - CHRONIC KIDNEY DISEASE, UNSPECIFIED; D63.1 - ANEMIA IN CHRONIC KIDNEY DISEASE Status: Acute (7) Diabetes type 2, uncontrolled Code(s): E11.65 - TYPE 2 DIABETES MELLITUS WITH HYPERGLYCEMIA Status: Chronic (8) GERD (gastroesophageal reflux disease) Code(s): K21.9 - GASTRO-ESOPHAGEAL REFLUX DISEASE WITHOUT ESOPHAGITIS Status: Chronic (9) Hypertension Code(s): I10 - ESSENTIAL (PRIMARY) HYPERTENSION Status: Chronic Qualifiers: Hypertension type: essential hypertension Qualified Code(s): I10 - Essential (primary) hypertension Plan: Uncontrolled - Plan Coordinate recommendations from neurology Likely the etiology is multifactorial due from migraine and diabetic cervical radiculopathy Continjue gabapentin to 600mg HS Continue amlodipine for blood pressure, 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 Continue other medication from home Disposition: Management of headache sxs. Given acute rise in Cr, nephrology team would like to observe for one more day. She has had markedly sustained blood pressure & NSAID use prior to starting amlodipine which could have contributed to her acute rise in Cr . Will obtain BMP in the AM to insure resolution and potential d/c in the AM on 11/12.
[2019-11-11] MEDS: Atorvastatin Calcium 40 MG TAB PO SCH (20:31)
[2019-11-11] MEDS: Gabapentin 300 MG CAP PO SCH (20:34)
[2019-11-11] MEDS: HYDROcodone/Acetaminophen 5/325 mg Tablet PO PRN (20:34)
[2019-11-11] MEDS ORDERED: Bisacodyl 10 MG SUPP PR SCH (21:00)
[2019-11-12 05:53] LABS: Anion Gap 15 mmol/L (10-20); BUN (Urea Nitrogen) 29 mg/dL (9.8-20.1); Calc. Creatinine Clearance 21 mL/min (70-130); Calcium 7.9 mg/dL (7.8-10.44); Carbon Dioxide 23 mmol/L (23-31); Chloride 108 mmol/L (98-107); Estimated GFR-MDRD 21; Glucose 172 mg/dL (80-115); Potassium 4.7 mmol/L (3.5-5.1); Sodium 141 mmol/L (136-145)
[2019-11-12 07:55] VITALS: TEMP 98
[2019-11-12] MEDS: cefTRIAXone\\ROCEPHIN 2 GM in Sodium Chloride 0.9% 100 ML IVPB SCH (08:36)
--- NOTE | 2019-11-12 08:54 | PRG ---
DATE OF SERVICE: 11/12/2019 SUBJECTIVE: A 64-year-old female being seen for acute kidney injury. The patient denied nausea, vomiting, or chest pain. OBJECTIVE: GENERAL: The patient is awake and alert. Vital Signs: Afebrile, pulse 66, breathing at 16, and blood pressure 173/74. HEENT: Head normocephalic and atraumatic. Eyes intact, no ulcers. Nose intact, no ulcers. Ears intact, no ulcers. NECK: Supple. No JVD. CHEST: Symmetrical and clear. CARDIOVASCULAR: Shows S1 and S2, no rub, no murmur. GASTROINTESTINAL: Abdomen is soft, bowel sounds positive. EXTREMITIES: Show no edema or ulcers. SKIN: Shows no rash or petechiae. MUSCULOSKELETAL: Shows no joint swelling or stiffness. GENITOURINARY: Shows no Hodges or CVA tenderness. NEUROLOGIC: Motor intact. Cranial nerves intact. LABORATORY DATA: Labs show hemoglobin 7.7. Today's hemoglobin is pending. Creatinine is 2.7. ASSESSMENT AND PLAN: 1. Acute kidney injury with chronic kidney disease, stage 4, stable. 2. Hypertension. We would recommend increasing labetalol. 3. Anemia. We would recommend rechecking hemoglobin. Job ID: [id number]
[2019-11-12] MEDS: cloNIDine 0.3 MG TAB PO SCH (09:01)
[2019-11-12] MEDS: hydrALAZINE 25 MG TAB PO SCH (09:02)
[2019-11-12] MEDS: Furosemide 20 MG TAB PO SCH (09:02)
[2019-11-12] MEDS: Amlodipine 10 MG TAB PO SCH (09:02)
[2019-11-12] MEDS: Insulin Glargine 20 UNITS in Pre-Filled Syringe 1 EACH SC SCH (09:02)
[2019-11-12] MEDS: Labetalol 100 MG TAB PO SCH (09:03)
[2019-11-12 09:30] LABS: Hemoglobin 7.8 g/dL (12.0-16.0)
[2019-11-12 10:41] VITALS: BP 147/67
--- NOTE | 2019-11-12 13:14 | DIS ---
DATE OF ADMISSION: 11/08/2019 DATE OF DISCHARGE: 11/12/2019 PRIMARY CARE PHYSICIAN: [facility]. DISCHARGE DISPOSITION: Home. PRIMARY DISCHARGE DIAGNOSES: 1. Acute on chronic kidney failure. 2. Baseline chronic kidney disease stage 3. 3. Migraine headache. 4. Urinary tract infection. SECONDARY DISCHARGE DIAGNOSES: 1. Chronic microcytic iron deficiency anemia. 2. Hypertension. 3. Chronic kidney disease stage 3. 4. Gastroesophageal reflux disease. 5. Diabetes type 2. 6. Gastroesophageal reflux disease. PRIMARY PROCEDURE/OPERATION: None. RADIOLOGIST INVESTIGATION: CT brain negative. Chest x-ray negative. Cervical spine negative. SIGNIFICANT LABORATORY DATA: WBC 5.2, hemoglobin 7.8, platelet 244. Creatinine 2.73. Sodium 141. Urinalysis showed glucosuria, proteinuria. Urine drug screen negative. DISCHARGE MEDICATIONS: 1. Lipitor 40 mg p.o. at bedtime. 2. Insulin lispro 20 units subcu daily and 10 units at bedtime. 3. Multivitamin 1 tablet daily. 4. Omeprazole 20 mg b.i.d. 5. Cipro 250 mg b.i.d. for 5 more days. 6. Amlodipine 10 mg daily. 7. Clonidine 0.3 mg t.i.d. 8. Lasix 20 mg daily. 9. Gabapentin 600 mg p.o. at bedtime. 10. Hydralazine 100 mg t.i.d. 11. Labetalol 400 mg b.i.d. CONTRAINDICATION: None. CODE STATUS: Full code. INPATIENT CONSULTANTS: 1. Dr. Puma Ortega, Neurology, was consulted for migraine headache. 2. Dr. Marco Ortiz was following for acute on chronic kidney failure. TEST RESULTS PENDING ON DISCHARGE: None. ALLERGIES: 1. SULFA DRUGS. 2. CODEINE. 3. CITRIC ACID. DISCHARGE PLAN: Post hospital, the patient will follow up with Dr. Marco Ortiz in 1 week. The patient will follow up with Dr. Puma Ortega in 1 week. The patient will follow up with Dr. Jose Manuel Hartmann in 1 or 2 weeks. The patient will follow up with primary care physician in 1 week. HOSPITAL COURSE: A 64-year-old female with above-mentioned medical problem, who was admitted by Dr. Finesse Mejia. Please see his H and P for further details. The patient was admitted for headache. The patient's headache description was consistent with migraine headache. The patient was evaluated by Neurology. The patient was also having hypertensive urgency. That was controlled with blood pressure medication. The patient also had acute on chronic kidney injury that was treated with better blood pressure and diabetes control. Nephrology was following. The patient has new baseline. The patient's blood sugar was also not well controlled and that is why we provided patient education about diabetes and blood pressure control. The patient is given referral to Oncology for IV iron therapy. The patient will follow up with Nephrology, Neurology, and Oncology. The patient will also follow up with primary care physician. The patient stayed in hospital for observation for several days and today I discharged her. Overall, the patient is doing much better and she wants to go home today. PHYSICAL EXAMINATION: VITAL SIGNS: Today, temperature 98.6, blood pressure 147/67, respiratory rate 18, saturation 99% on room air, weight 143 pounds. GENERAL: The patient is currently alert, awake, in no acute distress. HEAD: Normocephalic and atraumatic. NECK: Supple. No JVD. No meningeal signs of irritation. LUNGS: Clear to auscultation without any rhonchi or rales. CARDIAC: S1 and S2 regular. No murmur. No gallop. No rub. ABDOMEN: Soft, bowel sounds present, nontender, nondistended. No organomegaly. No mass. EXTREMITIES: No edema. NEUROLOGIC: Nonfocal examination. DISCHARGE CONDITION: Overall, the patient is medically stable for discharge today. Job ID: [id number]
== END 2019-11-12 11:46 | disposition home or self-care (01) ==
LOC: ERS 04:34 → ERHOLD 06:48 → 2SW 18:17
PROVIDERS: ADMIT Family Medicine; ATTEND Internal Medicine
DX: G43.909 Migraine, unspecified, not intractable, without status migrainosus (principal); I16.0 Hypertensive urgency; I12.9 Hypertensive chronic kidney disease with stage 1 through stage 4 chronic kidney disease, or unspecified chronic kidney disease; E11.22 Type 2 diabetes mellitus with diabetic chronic kidney disease; N18.3 Chronic kidney disease, stage 3 (moderate); D63.1 Anemia in chronic kidney disease; N17.9 Acute kidney failure, unspecified; E11.21 Type 2 diabetes mellitus with diabetic nephropathy; E11.65 Type 2 diabetes mellitus with hyperglycemia; N39.0 Urinary tract infection, site not specified; K21.9 Gastro-esophageal reflux disease without esophagitis; Z79.4 Long term (current) use of insulin; Z79.899 Other long term (current) drug therapy; Z88.2 Allergy status to sulfonamides; Z88.5 Allergy status to narcotic agent; Z88.8 Allergy status to other drugs, medicaments and biological substances; Z87.891 Personal history of nicotine dependence
CPT/HCPCS: 36415; 36416; 51701; 70450; 71045; 72125; 80048; 80053; 80306; 81003; 81015; 82010; 83880; 84484; 85014; 85018; 85025; 87086; 93005; 96361; 96365; 96367; 96375; 96376; A4353; G0378; J0696; J1200; J1815; J1885; J2270; J2765; J3490; Q0163

== ENCOUNTER 2020-02-23 10:30 | Emergency (ER) | payer BC, MEDICARE ==
[2020-02-23 11:00] LABS: Hemoglobin 8.6 g/dL (12.0-16.0); Mean Corpuscular HGB CONC 31.2 g/dL (32.0-36.0); Mean Corpuscular Hemoglobin 22.2 pg (27.0-31.0); Mean Corpuscular Volume 71.1 fL (78.0-98.0); Mean Platelet Volume 8.1 fL (7.4-10.4); Platelet Count 300 thou/uL (130-400); RBC Distribution Width 13.5 % (11.5-14.5)
[2020-02-23] MEDS ORDERED: Ondansetron PF 4 MG/2 ML Vial ONE ×2 (11:02→13:21)
--- NOTE | 2020-02-23 11:11 | RAD ---
RADIOGRAPH CHEST 1 VIEW: DATE: 02/23/2020 HISTORY: 64-year-old female with cough FINDINGS: There is no airspace density, pulmonary edema, or pneumothorax. The lateral costophrenic angles are n ot effaced. IMPRESSION: No acute pulmonary findings.
--- NOTE | 2020-02-23 11:18 | CT ---
CT BRAIN NONCONTRAST: DATE: 02/23/2020 HISTORY: 64-year-old female with dizziness and nausea FINDINGS: There is no evidence of acute intra-axial or extra-axial hemorrhage. There is no midline shift or any other mass effect. There is no extra-axial fluid collection. There is no evidence of obstructive hydrocephalus. Calvarium is intact. IMPRESSION: No acute intracranial findings.
[2020-02-23 11:32] LABS: Band 4 % (5-11); Eosinophils 1 % (0-10); Hypochromia SLIGHT = 6-15 cells (100X) (0-5/hpf); Lymphocytes 15 % (21-51); MDiff Complete? YES; Microcytosis MODERATE=15-30 cells (100X) (0-5/hpf); Monocytes 16 % (0-10); Neutrophil 63 % (42-75); Ovalocytes SLIGHT = 2-5 cells (100X) (0-1/hpf); Platelet Morphology Comment Appears Adequate; Polychromasia SLIGHT = 2-3 cells (100X) (0-2/hpf)
[2020-02-23 11:34] LABS: ALT (SGPT) Less than 7 U/L (8-55); AST (SGOT) 14 U/L (5-34); Albumin 3.3 g/dL (3.4-4.8); Alkaline Phosphatase 80 U/L (40-110); Anion Gap 14 mmol/L (10-20); BUN (Urea Nitrogen) 25 mg/dL (9.8-20.1); Bilirubin, Total 0.3 mg/dL (0.2-1.2); CK (CPK) 226 U/L (29-168); Calc. Creatinine Clearance 0 mL/min (70-130); Carbon Dioxide 22 mmol/L (23-31); Chloride 105 mmol/L (98-107); Estimated GFR-MDRD 22; Globulin 3.9 g/dL (2.4-3.5); Glucose 244 mg/dL (80-115); Lipase 25 U/L (8-78); Potassium 4.2 mmol/L (3.5-5.1); Protein, Total 7.2 g/dL (6.0-8.3); Sodium 137 mmol/L (136-145)
[2020-02-23] MEDS ORDERED: Meclizine HCl 25 MG TAB ONE (12:00)
[2020-02-23 13:08] LABS: Clarity Clear (Clear); Glucose, Urine (Dipstick) 70 mg/dL (Negative); Leukocyte Negative Leu/uL (Negative); Nitrite Negative (Negative); Protein, Urine (Dipstick) 200 mg/dL (Neg-Trace)
[2020-02-23 13:09] LABS: Bacteria/HPF 1+ HPF (None Seen); Bilirubin Negative (Negative); Blood, Urine Negative (Negative); RBC/HPF 0-3 HPF (0-3); Squamous Epithelial None Seen HPF (0-3); Urobilinogen Normal mg/dL (Less than 2); WBC/HPF 0-3 HPF (0-3)
[2020-02-23] MEDS ORDERED: Acetaminophen 325 MG TAB ONE (13:21)
[2020-02-23] MEDS ORDERED: cloNIDine 0.1 MG TAB ONE (13:46)
== END 2020-02-23 14:59 | disposition home or self-care (01) ==
LOC: ERS 10:30
DX: R42 Dizziness and giddiness (principal); E11.9 Type 2 diabetes mellitus without complications; K21.9 Gastro-esophageal reflux disease without esophagitis; I10 Essential (primary) hypertension; Z79.899 Other long term (current) drug therapy
CPT/HCPCS: 70450; 71045; 80053; 81003; 81015; 82550; 83690; 83880; 84484; 85025; 93005; 94760; 96361; 96374; 96376; J2405

== ENCOUNTER 2020-02-28 16:45 | Inpatient (IN) | payer BC, MEDICARE, OTHER ==
[2020-02-28] MEDS ORDERED: Metoclopramide HCl 10 MG/2 ML VIAL ONE (17:43)
[2020-02-28] MEDS ORDERED: diphenhydrAMINE 50 MG/ML VIAL ONE (17:43)
[2020-02-28] MEDS ORDERED: Acetaminophen 500 MG TAB ONE (18:20)
--- NOTE | 2020-02-28 18:48 | RAD ---
Chest AP view INDICATION: Emergency examination; chest pain COMPARISON: February 23, 2020 FINDINGS: Lungs: There are new and she airspace opacities involving the left mid, left lower lung and right lo wer lobe. Cardiac silhouette: There is mild cardiomegaly Pulmonary vasculature: Normal Pleural spaces: No pleural effusion or pneumothorax is demonstrated. Upper abdomen: No abnormality seen. Osseous structures: No acute osseous abnormality. Additional findings: None. IMPRESSION: New patchy airspace opacities within both lungs are suspicious for pneumonia. Recommend correlation. Radiographic follow-up to resolution is recommended.
[2020-02-28 20:23] LABS: #Lymphocytes 1.5 thou/uL (1.20-3.40); #Monocytes 0.6 thou/uL (0.11-0.59); #Neutrophils 2.7 thou/uL (1.40-6.50); %Eosinophils 0.1 % (0.0-10.0); %Lymphocytes 30.6 % (21.0-51.0); %Monocytes 13.1 % (0.0-10.0); %Neutrophils 56.1 % (42.0-75.0); Hemoglobin 8.8 g/dL (12.0-16.0); Mean Corpuscular HGB CONC 32.9 g/dL (32.0-36.0); Mean Corpuscular Hemoglobin 23.1 pg (27.0-31.0); Mean Corpuscular Volume 70.1 fL (78.0-98.0); Mean Platelet Volume 8.9 fL (7.4-10.4); Platelet Count 234 thou/uL (130-400); RBC Distribution Width 12.8 % (11.5-14.5); Red Blood Cell (RBC) Count 3.83 mill/uL (4.20-5.40); White Blood Cell (WBC) Count 4.8 thou/uL (4.8-10.8)
[2020-02-28 20:46] LABS: ALT (SGPT) 11 U/L (8-55); AST (SGOT) 35 U/L (5-34); Alkaline Phosphatase 64 U/L (40-110); Anion Gap 14 mmol/L (10-20); BUN (Urea Nitrogen) 38 mg/dL (9.8-20.1); Bilirubin, Total Less than 0.2 mg/dL (0.2-1.2); Calc. Creatinine Clearance 0 mL/min (70-130); Calcium 7.5 mg/dL (7.8-10.44); Carbon Dioxide 22 mmol/L (23-31); Chloride 101 mmol/L (98-107); Estimated GFR-MDRD 15; Globulin 3.9 g/dL (2.4-3.5); Glucose 245 mg/dL (80-115); Potassium 5.1 mmol/L (3.5-5.1); Protein, Total 6.9 g/dL (6.0-8.3); Sodium 132 mmol/L (136-145)
[2020-02-28 21:06] LABS: CKMB 2.5 ng/mL (0-6.6)
--- NOTE | 2020-02-28 21:41 | PDOC.HHP ---
Hospitalist HPI - History of Present Illness COVID19 +'ve, dehydration, elevated troponin, CKD History of Present Illness: Patient with PMH of HTN, DM, HLD, CKD and recent diagnosis of COVID19 presents to ED for evaluation of generalized weakness, malaise, headache, cough, mild shortness of breath, nausea, vomiting, diarrhea and poor oral intake. Tells me that symptoms have been ongoing for about 1 week. She was diagnosed with COVID19 about 2 days ago. Patient is concerned that she is getting progressively weaker and more dyspneic on exertion. In the ED she is found to be afebrile, saturating well on room air, no evidence of distress on exam. She is noted to have acute on chronic renal dysfunction as well as mild elevation of troponin. Hospitalist ROS - Review of Systems Constitutional: reports: weakness, malaise. denies: fever, chills Respiratory: reports: cough, shortness of breath, SOB with excertion Cardiovascular: denies: chest pain, palpitations, orthopnea, paroxysmal noc. dyspnea Gastrointestinal: reports: nausea, vomiting, diarrhea (diarrhea is resolving). denies: abdominal pain Genitourinary: denies: dysuria, frequency, incontinence Neurological: reports: weakness Hospitalist History - Past Medical History Heme/Onc: reports: no pertinent history Hepatobiliary: reports: no pertinent history Psych: reports: no pertinent history Musculoskeletal: reports: no pertinent history Rheumatologic: reports: no pertinent history Renal/: reports: no pertinent history Endocrine: reports: Diabetes Dermatology: reports: no pertinent history - Past Surgical History Past Surgical History: reports: Hysterectomy - Social History Alcohol: reports: Rare Drugs: reports: none - Exam General Appearance: NAD, awake alert, ill appearing (appears weak but non toxic) Eye: PERRL ENT: normocephalic atraumatic Neck: supple Heart: RRR, no murmur Respiratory: CTAB (decreased breath sounds) Gastrointestinal: soft, non-tender, non-distended Extremities: no cyanosis, no clubbing Neurological: cranial nerve grossly intact Psychiatric: normal affect Hospitalist Results - Labs Result Diagrams: 02/29/20 04:34 02/29/20 04:34 Lab results: WBC 4.8 thou/uL (4.8-10.8) 02/28/20 19:44 Hgb 8.8 g/dL (12.0-16.0) L 02/28/20 19:44 Hct 26.9 % (36.0-47.0) L 02/28/20 19:44 MCV 70.1 fL (78.0-98.0) L 02/28/20 19:44 Plt Count 234 thou/uL (130-400) 02/28/20 19:44 Neutrophils % 56.1 % (42.0-75.0) 02/28/20 19:44 Sodium 132 mmol/L (136-145) L 02/28/20 19:44 Potassium 5.1 mmol/L (3.5-5.1) 02/28/20 19:44 Chloride 101 mmol/L (98-107) 02/28/20 19:44 Carbon Dioxide 22 mmol/L (23-31) L 02/28/20 19:44 BUN 38 mg/dL (9.8-20.1) H 02/28/20 19:44 Creatinine 3.64 mg/dL (0.6-1.1) H 02/28/20 19:44 Glucose 245 mg/dL (80-115) H 02/28/20 19:44 Calcium 7.5 mg/dL (7.8-10.44) L 02/28/20 19:44 Total Bilirubin Less than 0.2 mg/dL (0.2-1.2) L 02/28/20 19:44 AST 35 U/L (5-34) H 02/28/20 19:44 ALT 11 U/L (8-55) 02/28/20 19:44 Alkaline Phosphatase 64 U/L (40-110) 02/28/20 19:44 CK-MB (CK-2) 2.5 ng/mL (0-6.6) 02/28/20 19:44 Troponin I 0.042 ng/mL (< 0.028) H 02/28/20 19:44 Serum Total Protein 6.9 g/dL (6.0-8.3) 02/28/20 19:44 Albumin 3.0 g/dL (3.4-4.8) L 02/28/20 19:44 - Radiology Interpretation Other Status: image reviewed by me (No fracture) Hospitalist H&P A/P - Plan Plan: Problem List 1. COVID19 Pneumonia 2. Dehydration 3. Elevated troponin 4. RAFAELA on CKD 5. History of HTN 6. History of DM on insulin 7. History of DLD Assessment and Plan 1. Positive COVID19 - recently diagnosed with COVID19 pneumonia - no distress on exam, non toxic or evidence of sepsis - she does have malaise, weakness, nausea & vomiting - hold off on antibiotics as her respiratory status appears stable - monitor oxygen saturations closely - continue with antitussive medications & tylenol PRN 2. Dehydration - in setting of nausea, vomiting, diarrhea, poor oral intake due to COVID19 - continue with IVF hydration - monitor progression closely 3. Elevated troponin - in setting of dehydration and RFAAELA on CKD - no chest pain or evidence of ACS - trend troponin & monitor clinical progression 4. RAFAELA on CKD - continue with IVFs - avoid nephrotoxic agents - pending progression consider nephrology consultation 5. History of HTN - continue with home medications 6. History of DM on insulin - start insulin sliding scale - transition to home dose insulin once PO intake improves 7. History of DLD - continue with statin DVT PPX: HepSQ. FULL CODE
[2020-02-28] MEDS ORDERED: Morphine 4 MG/ML VIAL ONE (22:44)
[2020-02-28] MEDS ORDERED: Ondansetron PF 4 MG/2 ML Vial ONE (22:44)
[2020-02-28] MEDS ORDERED: cloNIDine 0.3 MG TAB PO SCH (23:00)
[2020-02-28] MEDS ORDERED: Dextrose 5% in Water 1,000 ML IV PRN (23:25)
[2020-02-28] MEDS ORDERED: Dextrose 50% Abboject 50 ML SYRINGE SLOW IVP PRN (23:25)
--- NOTE | 2020-02-28 23:26 | RAD ---
Exam: XR Knee Rt 4 View STANDARD HISTORY: Right knee pain after a fall. COMPARISON: 09/26/2014 FINDINGS: Calcifications overlie the medial and lateral joint compartments related to chondrocalcinosis. Tiny s cattered osteophytes are present. No joint space narrowing is seen. The lateral view is rotated which does limit evaluation. No acute fracture, dislocation, or other acute osseous abnormality is identified. Dense vascular calcifications are now seen posterior to the knee. IMPRESSION: 1. No acute osseous abnormality. 2. Chondrocalcinosis and osteoarthritis.
--- NOTE | 2020-02-28 23:27 | RAD ---
Exam: XR Knee Lt 4 View STANDARD HISTORY: Left knee pain after a fall COMPARISON: None FINDINGS: Calcifications overlie the medial and lateral joint compartments related to chondrocalcinosis. Scatte red osteophytes are seen. No acute fracture, dislocation, or other acute osseous abnormality is identified. Dense vascular calcifications are seen posterior to the knee. IMPRESSION: 1. No acute osseous abnormality is identified. 2. Osteoarthritis and chondrocalcinosis involving the left knee.
[2020-02-29 00:14] LABS: Troponin I 0.022 ng/mL (< 0.028)
[2020-02-29] MEDS: Sodium Chloride 0.9% 1,000 ML IV SCH ×3 (00:44→18:54)
[2020-02-29] MEDS ORDERED: diphenhydrAMINE 25 MG CAP PO SCH (02:30)
[2020-02-29] MEDS ORDERED: HYDROcodone/Acetaminophen 5/325 mg Tablet PO SCH (02:30)
[2020-02-29] MEDS ORDERED: Labetalol 100 MG TAB PO SCH (03:15)
[2020-02-29] MEDS ORDERED: hydrALAZINE 25 MG TAB PO SCH (03:15)
[2020-02-29 04:46] LABS: #Lymphocytes 1.4 thou/uL (1.20-3.40); #Monocytes 0.5 thou/uL (0.11-0.59); #Neutrophils 2.2 thou/uL (1.40-6.50); %Basophils 0.4 % (0.0-1.0); %Eosinophils 0.3 % (0.0-10.0); %Lymphocytes 34.5 % (21.0-51.0); %Monocytes 12.2 % (0.0-10.0); %Neutrophils 52.7 % (42.0-75.0); Hemoglobin 8.5 g/dL (12.0-16.0); Mean Corpuscular HGB CONC 31.3 g/dL (32.0-36.0); Mean Corpuscular Hemoglobin 21.9 pg (27.0-31.0); Mean Platelet Volume 8.6 fL (7.4-10.4); Platelet Count 235 thou/uL (130-400); RBC Distribution Width 12.7 % (11.5-14.5); White Blood Cell (WBC) Count 4.1 thou/uL (4.8-10.8)
[2020-02-29 05:10] LABS: Anion Gap 12 mmol/L (10-20); BUN (Urea Nitrogen) 36 mg/dL (9.8-20.1); Calc. Creatinine Clearance 16 mL/min (70-130); Calcium 7.5 mg/dL (7.8-10.44); Carbon Dioxide 24 mmol/L (23-31); Cardiac Risk 5.1 (Less than 4.5); Chloride 102 mmol/L (98-107); Cholesterol 159 mg/dl (< 200 Desired); Estimated GFR-MDRD 16; Glucose 268 mg/dL (80-115); HDL Cholesterol 31 mg/dL (>60 Neg Risk); LDL Cholesterol, Calculated 87 mg/dL; Potassium 4.4 mmol/L (3.5-5.1); Sodium 134 mmol/L (136-145); Triglycerides 206 mg/dL (Less than 150)
[2020-02-29 05:12] LABS: Troponin I 0.022 ng/mL (< 0.028)
[2020-02-29] MEDS: HumaLOG 300 UNITS/3 ML VIAL SC PRN ×3 (06:04→18:46)
--- NOTE | 2020-02-29 08:04 | PDOC.HOSPP ---
- Subjective Encounter Date: 02/29/20 Encounter Time: 11:00 Subjective: Patient with persistent headache since admission. Right sided, pressure. No associated neuro signs. Tylenol not helping. Codeine and tramadol both cause itching so can't take those. - Objective Vital Signs & Weight: Vital Signs (12 hours) Temp Pulse Resp BP BP Pulse Ox 02/29/20 04:35 93 144/67 H 02/29/20 03:10 227/92 H 02/29/20 03:08 94 227/92 H 02/29/20 03:00 100.0 F H 94 16 227/92 H 95 02/29/20 00:50 74 167/77 H 02/29/20 00:30 175/77 H 02/29/20 00:11 98.9 F 76 14 190/83 H 93 L Weight Weight 137 lb 9.6 oz I&O: 02/28/20 02/29/20 03/01/20 06:59 06:59 06:59 Intake Total 1235 Output Total 750 Balance 485 Result Diagrams: 02/29/20 04:34 02/29/20 04:34 Additional Labs: Accuchecks 02/29/20 02/29/20 06:07 00:58 POC Glucose 247 H 213 H Hospitalist ROS - Review of Systems Constitutional: reports: fever, chills Respiratory: reports: cough, shortness of breath Cardiovascular: denies: chest pain Gastrointestinal: reports: nausea, vomiting, diarrhea. denies: abdominal pain Neurological: denies: weakness, numbness, incoordination, confusion, seizures - Medication Medications: Active Medications Generic Name Dose Route Start Last Admin Trade Name Freq PRN Reason Stop Dose Admin Sodium Chloride 1,000 mls @ 100 mls/hr 02/28/20 23:30 02/29/20 00:44 Normal Saline 0.9% IV 1,000 mls .Q10H SHO Administration Insulin Human Lispro 0 units 02/28/20 23:25 02/29/20 06:04 Humalog SC 3 unit .MILD SLIDING SCALE PRN Administration Mild Correctional Scale - Exam General Appearance: NAD, awake alert, ill appearing Eye: PERRL ENT: moist mucosa Heart: RRR, no murmur, no gallops, no rubs Respiratory: CTAB, no wheezes, no rales, no ronchi Gastrointestinal: soft, non-tender, non-distended, normal bowel sounds Neurological: cranial nerve grossly intact, no weakness, no focal deficits Psychiatric: normal affect, normal behavior, A&O x 3 Hosp A/P - Plan Problem List 1. COVID19 Pneumonia 2. Dehydration 3. Elevated troponin 4. RAFAELA on CKD 5. History of HTN 6. History of DM on insulin 7. History of DLD Assessment and Plan 1. Positive COVID19 - recently diagnosed with COVID19 pneumonia - no distress on exam, non toxic or evidence of sepsis - she does have malaise, weakness, nausea & vomiting - hold off on antibiotics as her respiratory status appears stable - monitor oxygen saturations closely - continue with antitussive medications & tylenol PRN - try a dose of Reglan and Benadryl for the headache 2. Dehydration - in setting of nausea, vomiting, diarrhea, poor oral intake due to COVID19 - continue with IVF hydration - monitor progression closely 3. Elevated troponin - in setting of dehydration and RAFAELA on CKD - no chest pain or evidence of ACS - resolved with recheck 4. RAFAELA on CKD - continue with IVFs, improved slightly today but still elevated, may need inpatient treatment - avoid nephrotoxic agents, no NSAIDS - pending progression consider nephrology consultation 5. History of HTN - continue with home medications 6. History of DM on insulin - start insulin sliding scale - transition to home dose insulin once PO intake improves 7. History of DLD - continue with statin DVT PPX: HepSQ. FULL CODE
[2020-02-29] MEDS ORDERED: Amlodipine 10 MG TAB PO SCH (09:00)
[2020-02-29] MEDS: Leflunomide 10 mg Tablet PO SCH (09:28)
[2020-02-29] MEDS: cloNIDine 0.3 MG TAB PO SCH ×3 (09:29→20:16)
[2020-02-29] MEDS: hydrALAZINE 25 MG TAB PO SCH ×3 (09:29→20:15)
[2020-02-29] MEDS: Prenatal Vitamin 1 TAB PO SCH (09:30)
[2020-02-29] MEDS: Acetaminophen 325 MG TAB PO PRN ×2 (09:30→20:37)
[2020-02-29] MEDS: Labetalol 100 MG TAB PO SCH ×2 (09:31→20:15)
[2020-02-29] MEDS: Heparin 5,000 UNITS/ML VIAL SC SCH ×3 (09:31→20:15)
[2020-02-29] MEDS ORDERED: traMADol HCl 50 MG TAB PO PRN ×2 (10:32)
[2020-02-29] MEDS ORDERED: diphenhydrAMINE 50 MG/ML VIAL IVP SCH (12:30)
[2020-02-29] MEDS ORDERED: Metoclopramide HCl 10 MG/2 ML VIAL IVP SCH (12:30)
[2020-02-29] MEDS: Insulin Glargine 30 UNITS in Pre-Filled Syringe 1 EACH SC SCH (20:14)
[2020-02-29] MEDS ORDERED: Non-Formulary Item 1 EACH (Insulin Glargine,Hum.Rec.Anlog [Basaglar Kwikpen U-100] 30 UNI SQ SCH (21:00)
[2020-02-29] MEDS ORDERED: Atorvastatin Calcium 40 MG TAB PO SCH (21:00)
[2020-03-01] MEDS: Sodium Chloride 0.9% 1,000 ML IV SCH (04:06)
[2020-03-01] MEDS: HumaLOG 300 UNITS/3 ML VIAL SC PRN (06:01)
[2020-03-01 08:38] LABS: Hemoglobin 8.5 g/dL (12.0-16.0); Mean Corpuscular HGB CONC 30.1 g/dL (32.0-36.0); Mean Corpuscular Hemoglobin 21.8 pg (27.0-31.0); Mean Corpuscular Volume 72.3 fL (78.0-98.0); Mean Platelet Volume 8.7 fL (7.4-10.4); Platelet Count 255 thou/uL (130-400); Red Blood Cell (RBC) Count 3.89 mill/uL (4.20-5.40); White Blood Cell (WBC) Count 3.3 thou/uL (4.8-10.8)
[2020-03-01 08:39] LABS: Anion Gap 14 mmol/L (10-20); BUN (Urea Nitrogen) 27 mg/dL (9.8-20.1); Calc. Creatinine Clearance 18 mL/min (70-130); Calcium 7.4 mg/dL (7.8-10.44); Carbon Dioxide 17 mmol/L (23-31); Chloride 105 mmol/L (98-107); Estimated GFR-MDRD 18; Glucose 105 mg/dL (80-115); Magnesium 1.1 mg/dL (1.6-2.6); Phosphorus 2.6 mg/dL (2.3-4.7); Sodium 132 mmol/L (136-145)
[2020-03-01 09:17] LABS: Band 6 % (5-11); Eosinophils 2 % (0-10); Hypochromia MODERATE=16-30 cells (100X) (0-5/hpf); Lymphocytes 33 % (21-51); MDiff Complete? YES; Microcytosis SLIGHT = 6-15 cells (100X) (0-5/hpf); Monocytes 10 % (0-10); Neutrophil 48 % (42-75); Platelet Morphology Comment Appears Adequate; Polychromasia SLIGHT = 2-3 cells (100X) (0-2/hpf)
[2020-03-01] MEDS: Leflunomide 10 mg Tablet PO SCH (09:20)
[2020-03-01] MEDS: hydrALAZINE 25 MG TAB PO SCH ×4 (09:21→23:46)
[2020-03-01] MEDS: Labetalol 100 MG TAB PO SCH ×3 (09:24→23:45)
[2020-03-01] MEDS: Prenatal Vitamin 1 TAB PO SCH (09:24)
[2020-03-01] MEDS: cloNIDine 0.3 MG TAB PO SCH ×3 (09:25→20:50)
[2020-03-01] MEDS: Heparin 5,000 UNITS/ML VIAL SC SCH ×3 (09:25→20:50)
[2020-03-01] MEDS: Ondansetron PF 4 MG/2 ML Vial IVP PRN ×2 (10:04→23:46)
--- NOTE | 2020-03-01 11:52 | PDOC.HOSPP ---
- Subjective Encounter Date: 03/01/20 Encounter Time: 07:45 Subjective: pt hatype 2 av block on monitor and pt was symptomatic with vomiting, has fever , weak, - Objective Vital Signs & Weight: Vital Signs (12 hours) Temp Pulse Resp BP Pulse Ox 03/01/20 09:30 100.2 F H 90 20 234/103 H 90 L 03/01/20 09:24 88 03/01/20 09:21 88 03/01/20 04:10 100.1 F H 88 16 178/60 H 98 03/01/20 01:30 100.3 F H 87 16 170/48 H 93 L Weight Admit Weight 137 lb 9.6 oz Weight 140 lb I&O: 02/29/20 03/01/20 03/02/20 06:59 06:59 06:59 Intake Total 1235 1680 Output Total 750 1400 Balance 485 280 Result Diagrams: 03/01/20 08:02 03/01/20 08:02 Additional Labs: Accuchecks 03/01/20 02/29/20 02/29/20 06:03 20:25 16:24 POC Glucose 184 H 161 H 197 H Radiology Reviewed by me: Yes EKG Reviewed by me: Yes Hospitalist ROS - Review of Systems Constitutional: reports: fever, weakness. denies: chills, sweats, malaise, other ENT: denies: ear pain, ear discharge, nose pain, nose discharge, nose congestion , mouth pain, mouth swelling, throat pain, throat swelling, other Respiratory: denies: cough, dry, shortness of breath, hemoptysis, SOB with excertion, pleuritic pain, sputum, wheezing, other Cardiovascular: denies: chest pain, palpitations, orthopnea, paroxysmal noc. dyspnea, edema, light headedness, other Gastrointestinal: denies: nausea, vomiting, abdominal pain, diarrhea, constipation, melena, hematochezia, other Genitourinary: denies: dysuria, frequency, incontinence, hematuria, retention, other Musculoskeletal: denies: neck pain, shoulder pain, arm pain, back pain, hand pain, leg pain, foot pain, other - Medication Medications: Active Medications Generic Name Dose Route Start Last Admin Trade Name Freq PRN Reason Stop Dose Admin Acetaminophen 650 mg 02/28/20 23:19 02/29/20 20:37 Tylenol PO 650 mg Q4H PRN Administration Headache/Fever/Mild Pain (1-3) Clonidine 0.3 mg 02/29/20 09:00 03/01/20 09:25 Catapres PO 0.3 mg TID SHO Administration Heparin Sodium (Porcine) 5,000 units 02/29/20 09:00 03/01/20 09:25 Heparin SC 5,000 units TID SHO Administration Hydralazine HCl 100 mg 02/29/20 09:00 03/01/20 09:21 Apresoline PO 100 mg TID SHO Administration Insulin Glargine 30 units/ 0.3 mls @ 0 mls/hr 02/29/20 21:00 02/29/20 20:14 Miscellaneous Medication SC 0.3 mls HS SHO Administration Insulin Human Lispro 0 units 02/28/20 23:25 03/01/20 06:01 Humalog SC 2 unit .MILD SLIDING SCALE PRN Administration Mild Correctional Scale Labetalol HCl 400 mg 02/29/20 09:00 03/01/20 09:24 Normodyne PO 400 mg BID SHO Administration Leflunomide 20 mg 02/29/20 09:00 03/01/20 09:20 Arava PO 20 mg DAILY SHO Administration Ondansetron HCl 4 mg 02/28/20 23:19 03/01/20 10:04 Zofran IVP 4 mg Q6H PRN Administration Nausea/Vomiting Pantoprazole Sodium 40 mg 02/29/20 09:00 03/01/20 09:24 Protonix PO 40 mg BID SHO Administration Multivit/Folic Acid/Iron 1 tab 02/29/20 09:00 03/01/20 09:24 Vitamin PO 1 tab DAILY SHO Administration Sodium Chloride 10 ml 02/29/20 09:00 03/01/20 09:24 Flush - Normal Saline IVF Not Given Q12HR SHO - Exam General Appearance: NAD, awake alert Eye: PERRL, anicteric sclera ENT: normocephalic atraumatic, no oropharyngeal lesions Neck: supple, symmetric, no JVD Heart: RRR, no murmur Respiratory: CTAB, no wheezes, no rales Gastrointestinal: soft, non-tender, non-distended Extremities: no cyanosis, no clubbing Skin: normal turgor, no lesions Neurological: no focal deficits Musculoskeletal: normal tone, normal strength Psychiatric: normal affect, normal behavior Hosp A/P (1) COVID-19 Code(s): U07.1 - COVID-19 Status: Acute (2) Acute respiratory disease due to 2019 novel coronavirus Code(s): U07.1 - COVID-19; J06.9 - ACUTE UPPER RESPIRATORY INFECTION, UNSPECIFIED Status: Acute (3) AV block, 2nd degree Code(s): I44.1 - ATRIOVENTRICULAR BLOCK, SECOND DEGREE Status: Acute (4) Hypertensive urgency Code(s): I16.0 - HYPERTENSIVE URGENCY Status: Acute (5) Hypomagnesemia Code(s): E83.42 - HYPOMAGNESEMIA Status: Acute (6) Anemia in chronic kidney disease (CKD) Code(s): N18.9 - CHRONIC KIDNEY DISEASE, UNSPECIFIED; D63.1 - ANEMIA IN CHRONIC KIDNEY DISEASE Status: Chronic Qualifiers: Chronic kidney disease stage: stage 4 (severe) Qualified Code(s): N18.4 - Chronic kidney disease, stage 4 (severe); D63.1 - Anemia in chronic kidney disease (7) Chronic kidney disease, stage 4 (severe) Code(s): N18.4 - CHRONIC KIDNEY DISEASE, STAGE 4 (SEVERE) Status: Chronic (8) Diabetes type 2, uncontrolled Code(s): E11.65 - TYPE 2 DIABETES MELLITUS WITH HYPERGLYCEMIA Status: Chronic (9) GERD (gastroesophageal reflux disease) Code(s): K21.9 - GASTRO-ESOPHAGEAL REFLUX DISEASE WITHOUT ESOPHAGITIS Status: Chronic (10) Hypertension Code(s): I10 - ESSENTIAL (PRIMARY) HYPERTENSION Status: Chronic Qualifiers: Hypertension type: essential hypertension Qualified Code(s): I10 - Essential (primary) hypertension (11) Chondrocalcinosis Code(s): M11.20 - OTHER CHONDROCALCINOSIS, UNSPECIFIED SITE Status: Chronic - Plan old records reviewed/req, plan discussed w/ family add vitamin c and zinc sulfate consult cardio for av block dc ivf control blood pressure give venofer consult id for covid medication reviewed symptomatic treatment replace magnesium repeat labs tomorrow
[2020-03-01] MEDS ORDERED: Magnesium Sulfate 4 GM in Sodium Chloride 0.9% 250 ML 250 ML IVPB SCH (12:00)
[2020-03-01] MEDS ORDERED: Iron Sucrose Complex 200 MG in Sodium Chloride 0.9% 250 ML 250 ML IVPB SCH (12:00)
[2020-03-01] MEDS ORDERED: Iron, Sodium Ferric Gluconate 250 MG in Sodium Chloride 0.9% 250 ML 250 ML IVPB SCH (12:15)
[2020-03-01] MEDS ORDERED: Sodium Chloride 0.65% Nasal 44 ML BOT EA NARE PRN (13:54)
[2020-03-01] MEDS ORDERED: Loratadine 10 MG TAB PO PRN (13:54)
[2020-03-01] MEDS ORDERED: Benzonatate 100 MG CAP PO PRN (13:54)
[2020-03-01] MEDS ORDERED: Zolpidem Tartrate 5 MG TAB PO PRN (13:54)
[2020-03-01] MEDS ORDERED: Senokot S 8.6-50 MG TAB PO PRN (13:54)
[2020-03-01] MEDS ORDERED: Cepastat Lozenges 1 LOZ PO PRN (13:54)
[2020-03-01] MEDS ORDERED: diphenhydrAMINE 25 MG CAP PO PRN (13:54)
[2020-03-01] MEDS ORDERED: Calcium Carbonate 500 MG ChewTAB PO PRN (13:54)
[2020-03-01] MEDS ORDERED: Bisacodyl 10 MG SUPP PR PRN (13:54)
[2020-03-01] MEDS: Acetaminophen 325 MG TAB PO PRN ×2 (13:57→20:49)
[2020-03-01] MEDS: Insulin Glargine 30 UNITS in Pre-Filled Syringe 1 EACH SC SCH (20:51)
[2020-03-01] MEDS: hydrALAZINE 20 MG/ML VIAL SLOW IVP PRN (21:30)
--- NOTE | 2020-03-01 22:47 | CON ---
DATE OF CONSULTATION: HISTORY OF PRESENT ILLNESS: The patient is a 64-year-old woman who presented with fevers and dyspnea and was noted to have a slow heart rate. The patient has a long history of hypertension and chronic renal failure. The patient has no known cardiac history. The patient was admitted and was found to have COVID positive pneumonia. The patient was in the hospital and noted to have a slow heart rate. The patient denies having history of syncope or lightheadedness. The patient denies having any chest discomfort. PAST MEDICAL HISTORY: Significant for; 1. Hypertension. 2. Chronic renal failure. 3. Diabetes mellitus. 4. Anemia. PAST SURGICAL HISTORY: She has had a hysterectomy. SOCIAL HISTORY: Nonsmoker. ALLERGIES: SHE IS ALLERGIC TO SULFA DRUGS, CODEINE, AND CITRIC ACID. MEDICATIONS ON ADMISSION: She takes; 1. Labetalol 400 b.i.d. 2. Lasix 20 daily. 3. Arava 20 daily. 4. Prilosec 20 daily. 5. Clonidine 0.3 t.i.d. 6. Hydralazine 100 t.i.d. REVIEW OF SYSTEMS: Ten point system otherwise unremarkable. PHYSICAL EXAMINATION: Was deferred due to COVID. VITAL SIGNS: Her temperature was 101.4 and blood pressure 181/80. LABORATORY RESULTS: Sodium 134, potassium 4.4, chloride 102, bicarb 24, BUN 36, creatinine 3.4, and glucose 268. Her white blood cell count is 3.3, hemoglobin 8.5, hematocrit 28.1, and her platelets were 255. IMAGING STUDIES: Her EKG revealed normal sinus rhythm, left atrial enlargement, nonspecific T-wave abnormality. Telemetry monitoring revealed second-degree AV block Mobitz I. IMPRESSION: 1. Second-degree atrioventricular block. 2. COVID positive pneumonia. 3. Chronic renal failure. 4. Hypertension. 5. Diabetes mellitus. This patient has evidence of second-degree heart block, most likely due to her being on high doses of clonidine and labetalol. Discontinue her clonidine at this time and try nifedipine and control blood pressure. We will follow this patient with you through her hospitalizations. Job ID: [id number]
[2020-03-02 05:44] LABS: Anion Gap 16 mmol/L (10-20); BUN (Urea Nitrogen) 27 mg/dL (9.8-20.1); Calc. Creatinine Clearance 17 mL/min (70-130); Calcium 7.9 mg/dL (7.8-10.44); Carbon Dioxide 18 mmol/L (23-31); Chloride 103 mmol/L (98-107); Estimated GFR-MDRD 17; Glucose 137 mg/dL (80-115); Magnesium 2.2 mg/dL (1.6-2.6); Potassium 4.6 mmol/L (3.5-5.1); Sodium 132 mmol/L (136-145)
[2020-03-02 05:52] LABS: Band 5 % (5-11); Hemoglobin 8.9 g/dL (12.0-16.0); Hypochromia SLIGHT = 6-15 cells (100X) (0-5/hpf); Lymphocytes 11 % (21-51); MDiff Complete? YES; Mean Corpuscular HGB CONC 32.2 g/dL (32.0-36.0); Mean Corpuscular Volume 71.4 fL (78.0-98.0); Mean Platelet Volume 8.6 fL (7.4-10.4); Monocytes 2 % (0-10); Neutrophil 82 % (42-75); Platelet Count 260 thou/uL (130-400); Platelet Morphology Comment Appears Adequate; Red Blood Cell (RBC) Count 3.88 mill/uL (4.20-5.40); White Blood Cell (WBC) Count 5.8 thou/uL (4.8-10.8)
[2020-03-02] MEDS: Ascorbic Acid 500 mg Chewable Tablet PO SCH (08:11)
[2020-03-02] MEDS: Labetalol 100 MG TAB PO SCH ×2 (08:12→20:38)
[2020-03-02] MEDS: hydrALAZINE 25 MG TAB PO SCH ×3 (08:12→22:36)
[2020-03-02] MEDS: Prenatal Vitamin 1 TAB PO SCH (08:13)
[2020-03-02] MEDS: Heparin 5,000 UNITS/ML VIAL SC SCH ×3 (08:13→20:39)
[2020-03-02] MEDS: cloNIDine 0.3 MG TAB PO SCH (08:13)
[2020-03-02] MEDS: Zinc Sulfate 220 MG CAP PO SCH (08:20)
[2020-03-02] MEDS ORDERED: NIFEdipine XL 30 MG TAB PO SCH ×2 (09:00→10:30)
[2020-03-02] MEDS: Leflunomide 10 mg Tablet PO SCH (09:35)
--- NOTE | 2020-03-02 09:52 | PDOC.HOSPP ---
- Subjective Encounter Date: 03/02/20 Encounter Time: 07:40 Subjective: pt is on room air, she has low grade fever, no new complaints, weakness - Objective Vital Signs & Weight: Vital Signs (12 hours) Temp Pulse Resp BP Pulse Ox 03/02/20 08:12 89 03/02/20 04:22 100.1 F H 89 18 179/73 H 92 L 03/01/20 23:46 84 03/01/20 23:45 99.1 F 74 16 154/72 H 94 L Weight Admit Weight 137 lb 9.6 oz Weight 140 lb I&O: 03/01/20 03/02/20 03/03/20 06:59 06:59 06:59 Intake Total 5660 Output Total 4500 Balance 1160 Result Diagrams: 03/02/20 05:09 03/02/20 05:09 Additional Labs: Accuchecks 03/02/20 03/01/20 03/01/20 05:57 21:04 15:20 POC Glucose 144 H 211 H 209 H 03/01/20 11:47 POC Glucose 150 H EKG Reviewed by me: Yes Hospitalist ROS - Review of Systems Constitutional: reports: fever, weakness. denies: chills, sweats, malaise, other ENT: denies: ear pain, ear discharge, nose pain, nose discharge, nose congestion , mouth pain, mouth swelling, throat pain, throat swelling, other Respiratory: denies: cough, dry, shortness of breath, hemoptysis, SOB with excertion, pleuritic pain, sputum, wheezing, other Cardiovascular: denies: chest pain, palpitations, orthopnea, paroxysmal noc. dyspnea, edema, light headedness, other Gastrointestinal: denies: nausea, vomiting, abdominal pain, diarrhea, constipation, melena, hematochezia, other Genitourinary: denies: dysuria, frequency, incontinence, hematuria, retention, other Musculoskeletal: denies: neck pain, shoulder pain, arm pain, back pain, hand pain, leg pain, foot pain, other - Medication Medications: Active Medications Generic Name Dose Route Start Last Admin Trade Name Freq PRN Reason Stop Dose Admin Acetaminophen 650 mg 02/28/20 23:19 03/01/20 20:49 Tylenol PO 650 mg Q4H PRN Administration Headache/Fever/Mild Pain (1-3) Ascorbic Acid 1,000 mg 03/02/20 09:00 03/02/20 08:11 Vitamin C PO 1,000 mg DAILY SHO Administration Clonidine 0.3 mg 02/29/20 09:00 03/02/20 08:13 Catapres PO 0.3 mg TID SHO Administration Heparin Sodium (Porcine) 5,000 units 02/29/20 09:00 03/02/20 08:13 Heparin SC 5,000 units TID SHO Administration Hydralazine HCl 100 mg 02/29/20 09:00 03/02/20 08:12 Apresoline PO 100 mg TID SHO Administration Hydralazine HCl 10 mg 03/01/20 13:54 03/01/20 21:30 Apresoline SLOW IVP 10 mg Q4H PRN Administration SBP > 180 and HR < 70 Insulin Glargine 30 units/ 0.3 mls @ 0 mls/hr 02/29/20 21:00 03/01/20 20:51 Miscellaneous Medication SC 0.3 mls HS SHO Administration Insulin Human Lispro 0 units 02/28/20 23:25 03/01/20 06:01 Humalog SC 2 unit .MILD SLIDING SCALE PRN Administration Mild Correctional Scale Labetalol HCl 400 mg 02/29/20 09:00 03/02/20 08:12 Normodyne PO 400 mg BID SHO Administration Leflunomide 20 mg 02/29/20 09:00 03/02/20 09:35 Arava PO 20 mg DAILY SHO Administration Nifedipine 30 mg 03/02/20 09:00 03/02/20 08:12 Procardia Xl PO 30 mg DAILY SHO Administration Ondansetron HCl 4 mg 02/28/20 23:19 03/01/20 23:46 Zofran IVP 4 mg Q6H PRN Administration Nausea/Vomiting Pantoprazole Sodium 40 mg 02/29/20 09:00 03/02/20 08:13 Protonix PO 40 mg BID SHO Administration Multivit/Folic Acid/Iron 1 tab 02/29/20 09:00 03/02/20 08:13 Vitamin PO 1 tab DAILY SHO Administration Sodium Chloride 10 ml 02/29/20 09:00 03/02/20 08:14 Flush - Normal Saline IVF Not Given Q12HR [facility] Zinc Sulfate 220 mg 03/02/20 09:00 03/02/20 08:20 Zinc Sulfate PO 220 mg DAILY SHO Administration - Exam General Appearance: NAD, awake alert Eye: PERRL, anicteric sclera ENT: normocephalic atraumatic, no oropharyngeal lesions Neck: supple, symmetric, no JVD, no thyromegaly Heart: RRR, no murmur, no gallops, no rubs Respiratory: CTAB, no wheezes, no rales, no ronchi Gastrointestinal: soft, non-tender, non-distended, normal bowel sounds Extremities: no cyanosis, no clubbing, no edema Skin: normal turgor, no lesions Neurological: no focal deficits Musculoskeletal: normal tone, normal strength Psychiatric: normal affect, normal behavior Hosp A/P (1) COVID-19 Code(s): U07.1 - COVID-19 Status: Acute (2) Acute respiratory disease due to 2019 novel coronavirus Code(s): U07.1 - COVID-19; J06.9 - ACUTE UPPER RESPIRATORY INFECTION, UNSPECIFIED Status: Acute (3) AV block, 2nd degree Code(s): I44.1 - ATRIOVENTRICULAR BLOCK, SECOND DEGREE Status: Acute (4) Hypertensive urgency Code(s): I16.0 - HYPERTENSIVE URGENCY Status: Acute (5) Hypomagnesemia Code(s): E83.42 - HYPOMAGNESEMIA Status: Resolved (6) Anemia in chronic kidney disease (CKD) Code(s): N18.9 - CHRONIC KIDNEY DISEASE, UNSPECIFIED; D63.1 - ANEMIA IN CHRONIC KIDNEY DISEASE Status: Chronic Qualifiers: Chronic kidney disease stage: stage 4 (severe) Qualified Code(s): N18.4 - Chronic kidney disease, stage 4 (severe); D63.1 - Anemia in chronic kidney disease (7) Chronic kidney disease, stage 4 (severe) Code(s): N18.4 - CHRONIC KIDNEY DISEASE, STAGE 4 (SEVERE) Status: Chronic (8) Diabetes type 2, uncontrolled Code(s): E11.65 - TYPE 2 DIABETES MELLITUS WITH HYPERGLYCEMIA Status: Chronic (9) GERD (gastroesophageal reflux disease) Code(s): K21.9 - GASTRO-ESOPHAGEAL REFLUX DISEASE WITHOUT ESOPHAGITIS Status: Chronic (10) Hypertension Code(s): I10 - ESSENTIAL (PRIMARY) HYPERTENSION Status: Chronic Qualifiers: Hypertension type: essential hypertension Qualified Code(s): I10 - Essential (primary) hypertension (11) Chondrocalcinosis Code(s): M11.20 - OTHER CHONDROCALCINOSIS, UNSPECIFIED SITE Status: Chronic - Plan old records reviewed/req add vitamin c and zinc sulfate consult cardio for av block dc ivf control blood pressure give venofer consult id for covid medication reviewed symptomatic treatment replace magnesium repeat labs tomorrow 03/02/20 clonidine dced and will add procardia 30 mg po daily monitor for any deterioration ID to see if afebrile for 24 hours, then consider dc she is on room air, doubt she needs any remsedevir medication reviewed add ferrous sulfate
[2020-03-02] MEDS: Acetaminophen 325 MG TAB PO PRN ×2 (10:03→21:04)
--- NOTE | 2020-03-02 11:57 | PDOC.EVN ---
Event Note - Event Note Event Note: elizabeth umana was called, this morning her BP was very high, she received her scheduled medication, after that her BP dropped to 70 systolic and she was diaphoretic with trendelenberg her BP improved she was kept on 1 lit nasal canula, she was 95%, her Bp improved to 140 systolic and she was communicating no chest pain or focal deficit will order cardiac enzyme will give NS 500 ml at 100 ml per hour.
[2020-03-02] MEDS: Loperamide HCl 2 MG CAP PO PRN ×2 (12:01→16:19)
[2020-03-02 12:34] LABS: Troponin I 0.045 ng/mL (< 0.028)
[2020-03-02] MEDS: Ferrous Sulfate 325 MG TAB PO SCH (15:58)
[2020-03-02] MEDS: Insulin Glargine 30 UNITS in Pre-Filled Syringe 1 EACH SC SCH (20:40)
[2020-03-02] MEDS: Ondansetron PF 4 MG/2 ML Vial IVP PRN (21:04)
[2020-03-02] MEDS: cloNIDine 0.1 MG TAB PO SCH (21:32)
[2020-03-02] MEDS: NIFEdipine XL 30 MG TAB PO SCH (22:36)
[2020-03-02] MEDS: Metoclopramide HCl 10 MG/2 ML VIAL IVP PRN (22:45)
[2020-03-02] MEDS ORDERED: Acetaminophen 325 MG TAB PO SCH (23:30)
[2020-03-03] MEDS: Heparin 5,000 UNITS/ML VIAL SC SCH ×3 (09:10→21:55)
[2020-03-03] MEDS: Zinc Sulfate 220 MG CAP PO SCH (09:10)
[2020-03-03] MEDS: Prenatal Vitamin 1 TAB PO SCH (09:11)
[2020-03-03] MEDS: NIFEdipine XL 30 MG TAB PO SCH ×2 (09:11→21:55)
[2020-03-03] MEDS: Labetalol 100 MG TAB PO SCH ×2 (09:11→21:54)
[2020-03-03] MEDS: Ferrous Sulfate 325 MG TAB PO SCH ×2 (09:11→18:02)
[2020-03-03] MEDS: Ascorbic Acid 500 mg Chewable Tablet PO SCH (09:11)
[2020-03-03] MEDS: cloNIDine 0.1 MG TAB PO SCH ×2 (09:11→21:54)
[2020-03-03] MEDS: Acetaminophen 500 MG TAB PO PRN ×2 (09:25→18:29)
--- NOTE | 2020-03-03 11:32 | PDOC.HOSPP ---
- Subjective Encounter Date: 03/03/20 Encounter Time: 09:30 Subjective: Patient seen and examined. No new complaints. No overnight events - Objective Vital Signs & Weight: Vital Signs (12 hours) Temp Pulse Resp BP BP Pulse Ox 03/03/20 09:18 101.1 F H 118 H 24 H 232/102 H 97 03/03/20 02:26 99.8 F H 88 20 123/57 L 95 03/03/20 00:23 101.2 F H 86 22 H 137/61 95 Weight Admit Weight 137 lb 9.6 oz Weight 138 lb 4.8 oz I&O: 03/02/20 03/03/20 03/04/20 06:59 06:59 06:59 Intake Total 5660 1100 Output Total 4500 800 Balance 1160 300 Result Diagrams: 03/02/20 05:09 03/02/20 05:09 Additional Labs: Accuchecks 03/03/20 03/02/20 03/02/20 06:34 20:54 16:15 POC Glucose 123 H 127 H 167 H 03/02/20 11:35 POC Glucose 151 H EKG Reviewed by me: Yes Hospitalist ROS - Review of Systems Constitutional: reports: fever, weakness. denies: chills, sweats, malaise, other ENT: denies: ear pain, ear discharge, nose pain, nose discharge, nose congestion , mouth pain, mouth swelling, throat pain, throat swelling, other Respiratory: denies: cough, dry, shortness of breath, hemoptysis, SOB with excertion, pleuritic pain, sputum, wheezing, other Cardiovascular: denies: chest pain, palpitations, orthopnea, paroxysmal noc. dyspnea, edema, light headedness, other Gastrointestinal: denies: nausea, vomiting, abdominal pain, diarrhea, constipation, melena, hematochezia, other Genitourinary: denies: dysuria, frequency, incontinence, hematuria, retention, other Musculoskeletal: denies: neck pain, shoulder pain, arm pain, back pain, hand pain, leg pain, foot pain, other Skin: denies: rash, lesions, jef, bruising, other - Medication Medications: Active Medications Generic Name Dose Route Start Last Admin Trade Name Freq PRN Reason Stop Dose Admin Acetaminophen 1,000 mg 03/02/20 23:26 03/03/20 09:25 Tylenol PO 1,000 mg Q8H PRN Administration FEVER/PAIN Ascorbic Acid 1,000 mg 03/02/20 09:00 03/03/20 09:11 Vitamin C PO 1,000 mg DAILY SHO Administration Clonidine 0.1 mg 03/02/20 21:00 03/03/20 09:11 Catapres PO 0.1 mg BID SHO Administration Diphenhydramine HCl 25 mg 03/01/20 13:54 03/02/20 21:07 Benadryl PO 25 mg Q4H PRN Administration Itching & Hives (mild) Ferrous Sulfate 325 mg 03/02/20 17:00 03/03/20 09:11 Feosol PO 325 mg BID-WM SHO Administration Heparin Sodium (Porcine) 5,000 units 02/29/20 09:00 03/03/20 09:10 Heparin SC 5,000 units TID [facility] Administration Hydralazine HCl 100 mg 02/29/20 09:00 03/02/20 22:36 Apresoline PO 100 mg TID SHO Administration Hydralazine HCl 10 mg 03/01/20 13:54 03/01/20 21:30 Apresoline SLOW IVP 10 mg Q4H PRN Administration SBP > 180 and HR < 70 Insulin Glargine 30 units/ 0.3 mls @ 0 mls/hr 02/29/20 21:00 03/02/20 20:40 Miscellaneous Medication SC Not Given [facility] Insulin Human Lispro 0 units 02/28/20 23:25 03/01/20 06:01 Humalog SC 2 unit .MILD SLIDING SCALE PRN Administration Mild Correctional Scale Labetalol HCl 400 mg 02/29/20 09:00 03/03/20 09:11 Normodyne PO 400 mg BID [facility] Administration Leflunomide 20 mg 02/29/20 09:00 03/02/20 09:35 Arava PO 20 mg DAILY SHO Administration Loperamide HCl 2 mg 03/01/20 13:54 03/02/20 16:19 Imodium PO 2 mg PRN PRN Administration Diarrhea/Loose Stools Metoclopramide HCl 5 mg 03/01/20 13:54 03/02/20 22:45 Reglan IVP 5 mg Q4H PRN Administration Nausea Nifedipine 30 mg 03/02/20 21:00 03/03/20 09:11 Procardia Xl PO 30 mg BID SHO Administration Ondansetron HCl 4 mg 02/28/20 23:19 03/02/20 21:04 Zofran IVP 4 mg Q6H PRN Administration Nausea/Vomiting Pantoprazole Sodium 40 mg 02/29/20 09:00 03/03/20 09:10 Protonix PO 40 mg BID SHO Administration Multivit/Folic Acid/Iron 1 tab 02/29/20 09:00 03/03/20 09:11 Vitamin PO 1 tab DAILY SHO Administration Sodium Chloride 10 ml 02/29/20 09:00 03/03/20 09:12 Flush - Normal Saline IVF 10 ml Q12HR SHO Administration Sodium Chloride 10 ml 02/29/20 00:42 03/02/20 22:48 Flush - Normal Saline IVF 10 ml PRN PRN Administration Saline Flush Vitamin E 200 units 03/02/20 09:00 03/02/20 12:22 Vitamin E PO 200 units DAILY SHO Administration Zinc Sulfate 220 mg 03/02/20 09:00 03/03/20 09:10 Zinc Sulfate PO 220 mg DAILY SHO Administration - Exam General Appearance: NAD, awake alert Eye: PERRL, anicteric sclera ENT: normocephalic atraumatic, no oropharyngeal lesions Neck: supple, symmetric, no JVD Heart: RRR, no murmur, no gallops Respiratory: CTAB, no wheezes, no rales Gastrointestinal: soft, non-tender, non-distended Extremities: no cyanosis, no clubbing Skin: normal turgor, no lesions Neurological: cranial nerve grossly intact, no focal deficits Musculoskeletal: normal tone, normal strength Psychiatric: normal affect, normal behavior Hosp A/P (1) COVID-19 Code(s): U07.1 - COVID-19 Status: Acute (2) Acute respiratory disease due to 2019 novel coronavirus Code(s): U07.1 - COVID-19; J06.9 - ACUTE UPPER RESPIRATORY INFECTION, UNSPECIFIED Status: Acute (3) AV block, 2nd degree Code(s): I44.1 - ATRIOVENTRICULAR BLOCK, SECOND DEGREE Status: Acute (4) Hypertensive urgency Code(s): I16.0 - HYPERTENSIVE URGENCY Status: Acute (5) Hypomagnesemia Code(s): E83.42 - HYPOMAGNESEMIA Status: Resolved (6) Anemia in chronic kidney disease (CKD) Code(s): N18.9 - CHRONIC KIDNEY DISEASE, UNSPECIFIED; D63.1 - ANEMIA IN CHRONIC KIDNEY DISEASE Status: Chronic Qualifiers: Chronic kidney disease stage: stage 4 (severe) Qualified Code(s): N18.4 - Chronic kidney disease, stage 4 (severe); D63.1 - Anemia in chronic kidney disease (7) Chronic kidney disease, stage 4 (severe) Code(s): N18.4 - CHRONIC KIDNEY DISEASE, STAGE 4 (SEVERE) Status: Chronic (8) Diabetes type 2, uncontrolled Code(s): E11.65 - TYPE 2 DIABETES MELLITUS WITH HYPERGLYCEMIA Status: Chronic (9) GERD (gastroesophageal reflux disease) Code(s): K21.9 - GASTRO-ESOPHAGEAL REFLUX DISEASE WITHOUT ESOPHAGITIS Status: Chronic (10) Hypertension Code(s): I10 - ESSENTIAL (PRIMARY) HYPERTENSION Status: Chronic Qualifiers: Hypertension type: essential hypertension Qualified Code(s): I10 - Essential (primary) hypertension (11) Chondrocalcinosis Code(s): M11.20 - OTHER CHONDROCALCINOSIS, UNSPECIFIED SITE Status: Chronic - Plan old records reviewed/req add vitamin c and zinc sulfate consult cardio for av block dc ivf control blood pressure give venofer consult id for covid medication reviewed symptomatic treatment replace magnesium repeat labs tomorrow 03/02/20 clonidine dced and will add procardia 30 mg po daily monitor for any deterioration ID to see if afebrile for 24 hours, then consider dc she is on room air, doubt she needs any remsedevir medication reviewed add ferrous sulfate 03/03/20 still febrile ID to see she has labile BP supportive care she is on room air dc when afebrile for 24 hours
[2020-03-03] MEDS: hydrALAZINE 25 MG TAB PO SCH ×2 (13:25→18:03)
[2020-03-03] MEDS: Leflunomide 10 mg Tablet PO SCH (13:25)
[2020-03-03] MEDS ORDERED: Dexamethasone 4 MG TAB PO SCH (14:45)
--- NOTE | 2020-03-03 21:16 | CON ---
DATE OF CONSULTATION: 03/03/2020 REASON FOR CONSULTATION: COVID pneumonia. HISTORY OF PRESENT ILLNESS: A 64-year-old, who has been a few times in this hospital. 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 She has a kidney biopsy before, which has documented diabetic glomerulosclerosis and the last admission was in October of this year because of acute on chronic kidney failure, migraine headaches, and UTI. This time, she presented on February 27 with symptoms since February 25, mostly general malaise and headaches. Initial findings; BP 190/83, pulse 77, respirations 25, temperature 99.6, and O2 saturation 96% on room air. She did not appear in distress. Lungs were clear. Abdomen, soft and not tender. Other findings included a white cell count 4.8, hemoglobin 8.8, MCV 70, platelets 234, and normal differential except for monocytosis. D-dimer is 1.01. Sodium 132 and creatinine 3.64, which is a bit higher than her baseline of 2.6. Liver profile with an AST of 35 and bilirubin less than 0.2. Troponin 0.042. Albumin 3.0. CK-MB was 2.5. She remained febrile through the hospital stay since the . She is not eligible for Remdesivir because of her renal dysfunction. Her O2 saturations have remained ranging from 92 to 97 and she has been on room air throughout the hospital stay. The imaging of her chest on February 22 was clear and then repeat on February 27 with patchy airspace opacities in both lungs. Currently, Ms. Roberts is still not feeling well. She is very anorectic, still with headaches, but no respiratory symptoms to speak off right now. A little bit of diarrhea. No genitourinary symptoms. She has chronic joint pain, which is mild related to rheumatoid arthritis. PAST MEDICAL HISTORY: Type 2 diabetes, hypertension, rheumatoid arthritis, hysterectomy, cardiac ablation, and anemia with requirement for iron replacement. SOCIAL HISTORY: Never smoker. [place] in the area. ALLERGIES: SULFA DRUGS, CODEINE, AND CITRIC ACID. MEDICATIONS: At home; 1. Omeprazole. 2. Furosemide. 3. Labetalol. 4. Clonidine. 5. Hydralazine. 6. Leflunomide. Medications here; 1. vitamin. 2. Senokot. 3. Electrolyte IV flushes. 4. Vitamin E. 5. Zinc. 6. Zolpidem. PHYSICAL EXAMINATION: CURRENT VITAL SIGNS: Temperature 101.1, BP 130/60, pulse 118, respirations 24, and O2 saturation 97. SKIN: Not remarkable. The patient has a peripheral IV access and is voiding in the bedside commode. GENERAL: Does not appear in distress, just does not feel well. No lymphadenopathy. HEENT: Ocular movements conjugate. Oral cavity was not remarkable. NECK: Supple. LUNGS: Symmetric clear breath sounds. HEART: S1 and S2. Regular rate. No S3 or S4. ABDOMEN: Soft with no tenderness. No ascites. No bladder distention. EXTREMITIES: No joint inflammatory activity. No edema. Pulses 1+ in dorsalis pedis. Moves extremities equally. NEUROLOGIC: She is awake and oriented, follows commands. LABORATORY DATA: Sodium 132 and creatinine 3.31. Follow up CBC with WBC 5.8, hemoglobin 8.9, and platelets 260. Her ferritin was 3047. CRP was 1.34. ASSESSMENT: Chronic kidney disease stage 4 to 5, type 2 diabetes, rheumatoid arthritis, and COVID pneumonia. DISCUSSION: The patient is not eligible for Remdesivir. Although, she is on room air, this is the first week of her illness and she has a high risk of further deterioration, so go ahead and start Decadron 6 mg daily since she is going to a more inflammatory phase of the illness. Continue monitoring CRP, ferritin, and D-dimer. She is on heparin prophylaxis already. Job ID: [id number]
[2020-03-03] MEDS: Insulin Glargine 30 UNITS in Pre-Filled Syringe 1 EACH SC SCH (22:10)
[2020-03-04] MEDS: Cyclobenzaprine 10 MG TAB PO PRN ×3 (00:03→21:58)
[2020-03-04] MEDS: hydrALAZINE 25 MG TAB PO SCH ×3 (00:03→17:16)
[2020-03-04] MEDS: HumaLOG 300 UNITS/3 ML VIAL SC PRN (06:14)
[2020-03-04] MEDS: Ascorbic Acid 500 mg Chewable Tablet PO SCH (08:50)
[2020-03-04] MEDS: Ferrous Sulfate 325 MG TAB PO SCH ×2 (08:50→17:16)
[2020-03-04] MEDS: Labetalol 100 MG TAB PO SCH ×2 (08:51→21:59)
[2020-03-04] MEDS: Dexamethasone 4 MG TAB PO SCH (08:51)
[2020-03-04] MEDS: cloNIDine 0.1 MG TAB PO SCH ×2 (08:51→21:59)
[2020-03-04] MEDS: Prenatal Vitamin 1 TAB PO SCH (08:52)
[2020-03-04] MEDS: Zinc Sulfate 220 MG CAP PO SCH (08:52)
[2020-03-04] MEDS: Heparin 5,000 UNITS/ML VIAL SC SCH ×3 (08:52→21:58)
[2020-03-04] MEDS: NIFEdipine XL 30 MG TAB PO SCH ×2 (08:52→21:58)
[2020-03-04] MEDS: Acetaminophen 500 MG TAB PO PRN (09:11)
--- NOTE | 2020-03-04 09:30 | PDOC.HOSPP ---
- Subjective Encounter Date: 03/04/20 Encounter Time: 07:30 Subjective: Patient seen and examined. No new complaints. No overnight events, pt had fever last night - Objective Vital Signs & Weight: Vital Signs (12 hours) Temp Pulse Resp BP Pulse Ox 03/04/20 08:52 94 03/04/20 08:51 94 03/04/20 07:36 94 185/85 H 96 03/04/20 04:00 98.4 F 93 20 179/72 H 96 03/04/20 00:13 99.4 F 92 20 139/63 96 03/03/20 22:06 101.4 F H 107 H 24 H 165/72 H 96 03/03/20 21:54 103 H Weight Admit Weight 137 lb 9.6 oz Weight 138 lb 12.8 oz I&O: 03/03/20 03/04/20 03/05/20 06:59 06:59 06:59 Intake Total 1100 1916 Output Total 800 Balance 300 1916 Result Diagrams: 03/02/20 05:09 03/02/20 05:09 Additional Labs: Accuchecks 03/04/20 03/04/20 03/03/20 06:14 04:00 22:08 POC Glucose 320 H 328 H 307 H 03/03/20 03/03/20 18:16 13:35 POC Glucose 147 H 170 H EKG Reviewed by me: Yes Hospitalist ROS - Review of Systems Constitutional: reports: fever, weakness. denies: chills, sweats, malaise, other Eyes: denies: pain, vision change, conjunctivae inflammation, eyelid inflammation, redness, other ENT: denies: ear pain, ear discharge, nose pain, nose discharge, nose congestion , mouth pain, mouth swelling, throat pain, throat swelling, other Respiratory: denies: cough, dry, shortness of breath, hemoptysis, SOB with excertion, pleuritic pain, sputum, wheezing, other Cardiovascular: denies: chest pain, palpitations, orthopnea, paroxysmal noc. dyspnea, edema, light headedness, other Gastrointestinal: denies: nausea, vomiting, abdominal pain, diarrhea, constipation, melena, hematochezia, other Genitourinary: denies: dysuria, frequency, incontinence, hematuria, retention, other Musculoskeletal: denies: neck pain, shoulder pain, arm pain, back pain, hand pain, leg pain, foot pain, other - Medication Medications: Active Medications Generic Name Dose Route Start Last Admin Trade Name Freq PRN Reason Stop Dose Admin Acetaminophen 1,000 mg 03/02/20 23:26 03/04/20 09:11 Tylenol PO 1,000 mg Q8H PRN Administration FEVER/PAIN Ascorbic Acid 1,000 mg 03/02/20 09:00 03/04/20 08:50 Vitamin C PO 1,000 mg DAILY SHO Administration Clonidine 0.1 mg 03/02/20 21:00 03/04/20 08:51 Catapres PO 0.1 mg BID SHO Administration Cyclobenzaprine HCl 5 mg 03/03/20 23:13 03/04/20 00:03 Flexeril PO 5 mg TIDPRN PRN Administration Muscle Spasm Dexamethasone 6 mg 03/04/20 09:00 03/04/20 08:51 Decadron PO 6 mg DAILY SHO Administration Diphenhydramine HCl 25 mg 03/01/20 13:54 03/02/20 21:07 Benadryl PO 25 mg Q4H PRN Administration Itching & Hives (mild) Ferrous Sulfate 325 mg 03/02/20 17:00 03/04/20 08:50 Feosol PO 325 mg BID-WM SHO Administration Heparin Sodium (Porcine) 5,000 units 02/29/20 09:00 03/04/20 08:52 Heparin SC 5,000 units TID SHO Administration Hydralazine HCl 100 mg 02/29/20 09:00 03/04/20 00:03 Apresoline PO 100 mg TID SHO Administration Hydralazine HCl 10 mg 03/01/20 13:54 03/01/20 21:30 Apresoline SLOW IVP 10 mg Q4H PRN Administration SBP > 180 and HR < 70 Insulin Glargine 30 units/ 0.3 mls @ 0 mls/hr 02/29/20 21:00 03/03/20 22:10 Miscellaneous Medication SC 0.3 mls HS SHO Administration Labetalol HCl 400 mg 02/29/20 09:00 03/04/20 08:51 Normodyne PO 400 mg BID SHO Administration Leflunomide 20 mg 02/29/20 09:00 03/03/20 13:25 Arava PO 20 mg DAILY SHO Administration Loperamide HCl 2 mg 03/01/20 13:54 03/02/20 16:19 Imodium PO 2 mg PRN PRN Administration Diarrhea/Loose Stools Metoclopramide HCl 5 mg 03/01/20 13:54 03/02/20 22:45 Reglan IVP 5 mg Q4H PRN Administration Nausea Nifedipine 30 mg 03/02/20 21:00 03/04/20 08:52 Procardia Xl PO 30 mg BID SHO Administration Ondansetron HCl 4 mg 02/28/20 23:19 03/02/20 21:04 Zofran IVP 4 mg Q6H PRN Administration Nausea/Vomiting Pantoprazole Sodium 40 mg 02/29/20 09:00 03/04/20 08:51 Protonix PO 40 mg BID SHO Administration Multivit/Folic Acid/Iron 1 tab 02/29/20 09:00 03/04/20 08:52 Vitamin PO 1 tab DAILY SHO Administration Sodium Chloride 10 ml 02/29/20 09:00 03/04/20 08:52 Flush - Normal Saline IVF 10 ml Q12HR SHO Administration Sodium Chloride 10 ml 02/29/20 00:42 03/02/20 22:48 Flush - Normal Saline IVF 10 ml PRN PRN Administration Saline Flush Vitamin E 200 units 03/02/20 09:00 03/04/20 08:52 Vitamin E PO 200 units DAILY SHO Administration Zinc Sulfate 220 mg 03/02/20 09:00 03/04/20 08:52 Zinc Sulfate PO 220 mg DAILY SHO Administration - Exam General Appearance: NAD, awake alert Eye: PERRL, anicteric sclera ENT: normocephalic atraumatic, no oropharyngeal lesions Neck: supple, symmetric, no JVD, no thyromegaly Heart: RRR, no murmur, no gallops, no rubs Respiratory: CTAB, no wheezes, no rales, no ronchi Gastrointestinal: soft, non-tender, non-distended, normal bowel sounds Extremities: no cyanosis, no clubbing, no edema Skin: normal turgor, no lesions Neurological: no focal deficits Musculoskeletal: normal tone, normal strength Psychiatric: normal affect, normal behavior Hosp A/P (1) COVID-19 Code(s): U07.1 - COVID-19 Status: Acute (2) Acute respiratory disease due to 2019 novel coronavirus Code(s): U07.1 - COVID-19; J06.9 - ACUTE UPPER RESPIRATORY INFECTION, UNSPECIFIED Status: Acute (3) AV block, 2nd degree Code(s): I44.1 - ATRIOVENTRICULAR BLOCK, SECOND DEGREE Status: Resolved (4) Hypertensive urgency Code(s): I16.0 - HYPERTENSIVE URGENCY Status: Resolved (5) Hypomagnesemia Code(s): E83.42 - HYPOMAGNESEMIA Status: Resolved (6) Anemia in chronic kidney disease (CKD) Code(s): N18.9 - CHRONIC KIDNEY DISEASE, UNSPECIFIED; D63.1 - ANEMIA IN CHRONIC KIDNEY DISEASE Status: Chronic Qualifiers: Chronic kidney disease stage: stage 4 (severe) Qualified Code(s): N18.4 - Chronic kidney disease, stage 4 (severe); D63.1 - Anemia in chronic kidney disease (7) Chronic kidney disease, stage 4 (severe) Code(s): N18.4 - CHRONIC KIDNEY DISEASE, STAGE 4 (SEVERE) Status: Chronic (8) Diabetes type 2, uncontrolled Code(s): E11.65 - TYPE 2 DIABETES MELLITUS WITH HYPERGLYCEMIA Status: Chronic (9) GERD (gastroesophageal reflux disease) Code(s): K21.9 - GASTRO-ESOPHAGEAL REFLUX DISEASE WITHOUT ESOPHAGITIS Status: Chronic (10) Hypertension Code(s): I10 - ESSENTIAL (PRIMARY) HYPERTENSION Status: Chronic Qualifiers: Hypertension type: essential hypertension Qualified Code(s): I10 - Essential (primary) hypertension (11) Chondrocalcinosis Code(s): M11.20 - OTHER CHONDROCALCINOSIS, UNSPECIFIED SITE Status: Chronic - Plan old records reviewed/req add vitamin c and zinc sulfate consult cardio for av block dc ivf control blood pressure give venofer consult id for covid medication reviewed symptomatic treatment replace magnesium repeat labs tomorrow 03/02/20 clonidine dced and will add procardia 30 mg po daily monitor for any deterioration ID to see if afebrile for 24 hours, then consider dc she is on room air, doubt she needs any remsedevir medication reviewed add ferrous sulfate 03/03/20 still febrile ID to see she has labile BP supportive care she is on room air dc when afebrile for 24 hours 03/04/20 once afebrile for 24 hours, consider discharge continue decadron, will need total 10 days therapy including started in hospital supportive care change to aggressive sliding scale adjust BP medication
[2020-03-04] MEDS: Leflunomide 10 mg Tablet PO SCH (11:40)
--- NOTE | 2020-03-04 13:03 | EKG ---
Test Reason : Blood Pressure : / mmHG Vent. Rate : 080 BPM Atrial Rate : 080 BPM P-R Int : 144 ms QRS Dur : 072 ms QT Int : 376 ms P-R-T Axes : 053 -22 141 degrees QTc Int : 433 ms Normal sinus rhythm Possible Left atrial enlargement Low voltage QRS Nonspecific T wave abnormality Abnormal ECG Confirmed by DARÍO SIMS DO ([id number]), commissioning editor GUMARO RATLIFF ([id number]) on 03/04/2020 1:03:14 PM Referred By: Confirmed By:DARÍO SIMS DO
[2020-03-04] MEDS: Ondansetron PF 4 MG/2 ML Vial IVP PRN (15:50)
[2020-03-04] MEDS: Artificial Tears 18 DROP/0.9 ML EA EYE PRN (17:17)
[2020-03-04] MEDS: Insulin Glargine 30 UNITS in Pre-Filled Syringe 1 EACH SC SCH (21:57)
[2020-03-05] MEDS: cloNIDine 0.1 MG TAB PO SCH ×2 (01:12→08:44)
[2020-03-05] MEDS: hydrALAZINE 25 MG TAB PO SCH ×3 (01:12→15:31)
[2020-03-05] MEDS: Labetalol 100 MG TAB PO SCH ×3 (01:12→21:58)
[2020-03-05] MEDS: HumaLOG 300 UNITS/3 ML VIAL SC PRN ×3 (05:32→17:40)
[2020-03-05] MEDS: Heparin 5,000 UNITS/ML VIAL SC SCH ×3 (08:20→21:57)
[2020-03-05] MEDS: Ferrous Sulfate 325 MG TAB PO SCH ×2 (08:22→17:37)
[2020-03-05] MEDS: Artificial Tears 18 DROP/0.9 ML EA EYE PRN (08:23)
[2020-03-05] MEDS: Leflunomide 10 mg Tablet PO SCH (08:23)
[2020-03-05] MEDS: Dexamethasone 4 MG TAB PO SCH (08:24)
[2020-03-05] MEDS: Prenatal Vitamin 1 TAB PO SCH (08:25)
[2020-03-05] MEDS: Ascorbic Acid 500 mg Chewable Tablet PO SCH (08:25)
[2020-03-05] MEDS: NIFEdipine XL 30 MG TAB PO SCH ×2 (08:47→21:57)
[2020-03-05] MEDS: Zinc Sulfate 220 MG CAP PO SCH (08:47)
[2020-03-05] MEDS: Cyclobenzaprine 10 MG TAB PO PRN ×2 (09:01→21:58)
[2020-03-05] MEDS ORDERED: cloNIDine 0.1 MG TAB PO SCH (10:15)
--- NOTE | 2020-03-05 19:48 | PDOC.HOSPP ---
- Subjective Encounter Date: 03/05/20 Encounter Time: 19:47 Subjective: The patient denies SOB, denies cough. She states that her is also COVID + - Objective Vital Signs & Weight: Vital Signs (12 hours) Temp Pulse Resp BP BP BP BP 03/05/20 15:48 98.9 F 97 18 172/77 H 03/05/20 15:31 93 03/05/20 12:00 99.8 F H 93 18 144/64 H 03/05/20 11:58 184/77 H 03/05/20 08:47 107 H 184/77 H 03/05/20 08:46 107 H 184/77 H 03/05/20 08:45 107 H 184/77 H 03/05/20 08:44 184/77 H 03/05/20 08:00 99.2 F 107 H 16 212/92 H 184/77 H 172/74 H Pulse Ox 03/05/20 15:48 95 03/05/20 15:31 03/05/20 12:00 96 03/05/20 11:58 03/05/20 08:47 03/05/20 08:46 03/05/20 08:45 03/05/20 08:44 03/05/20 08:00 94 L Weight Admit Weight 137 lb 9.6 oz Weight 138 lb 3.2 oz I&O: 03/04/20 03/05/20 03/06/20 06:59 06:59 06:59 Intake Total 5049 394 9425 Output Total 800 Balance 1916 600 647 Result Diagrams: 03/02/20 05:09 03/02/20 05:09 Additional Labs: Accuchecks 03/05/20 03/05/20 03/05/20 17:44 12:16 05:30 POC Glucose 271 H 156 H 213 H 03/04/20 22:15 POC Glucose 292 H Hospitalist ROS - Review of Systems Constitutional: denies: fever, chills - Medication Medications: Active Medications Generic Name Dose Route Start Last Admin Trade Name Freq PRN Reason Stop Dose Admin Acetaminophen 1,000 mg 03/02/20 23:26 03/04/20 09:11 Tylenol PO 1,000 mg Q8H PRN Administration FEVER/PAIN Artificial Tears 2 drop 03/01/20 13:54 06/21/20 08:23 Tears Naturale EA EYE 2 drop PRN PRN Administration Dry Eyes Ascorbic Acid 1,000 mg 03/02/20 09:00 03/05/20 08:25 Vitamin C PO 1,000 mg DAILY SHO Administration Cyclobenzaprine HCl 5 mg 03/03/20 23:13 03/05/20 09:01 Flexeril PO 5 mg TIDPRN PRN Administration Muscle Spasm Dexamethasone 6 mg 03/04/20 09:00 03/05/20 08:24 Decadron PO 6 mg DAILY SHO Administration Diphenhydramine HCl 25 mg 03/01/20 13:54 03/02/20 21:07 Benadryl PO 25 mg Q4H PRN Administration Itching & Hives (mild) Ferrous Sulfate 325 mg 03/02/20 17:00 03/05/20 17:37 Feosol PO 325 mg BID-WM SHO Administration Heparin Sodium (Porcine) 5,000 units 02/29/20 09:00 03/05/20 15:31 Heparin SC 5,000 units TID SHO Administration Hydralazine HCl 100 mg 02/29/20 09:00 03/05/20 15:31 Apresoline PO 100 mg TID SHO Administration Hydralazine HCl 10 mg 03/01/20 13:54 03/01/20 21:30 Apresoline SLOW IVP 10 mg Q4H PRN Administration SBP > 180 and HR < 70 Insulin Glargine 30 units/ 0.3 mls @ 0 mls/hr 02/29/20 21:00 03/04/20 21:57 Miscellaneous Medication SC 0.3 mls HS SHO Administration Insulin Human Lispro 0 units 03/04/20 06:56 03/05/20 17:40 Humalog SC 9 units .AGGRESSIVE SLIDING PRN Administration Aggressive Correctional Scale Labetalol HCl 400 mg 02/29/20 09:00 03/05/20 08:46 Normodyne PO 400 mg BID SHO Administration Leflunomide 20 mg 02/29/20 09:00 03/05/20 08:23 Arava PO 20 mg DAILY SHO Administration Loperamide HCl 2 mg 03/01/20 13:54 03/02/20 16:19 Imodium PO 2 mg PRN PRN Administration Diarrhea/Loose Stools Metoclopramide HCl 5 mg 03/01/20 13:54 03/02/20 22:45 Reglan IVP 5 mg Q4H PRN Administration Nausea Nifedipine 30 mg 03/02/20 21:00 03/05/20 08:47 Procardia Xl PO 30 mg BID SHO Administration Ondansetron HCl 4 mg 02/28/20 23:19 03/04/20 15:50 Zofran IVP 4 mg Q6H PRN Administration Nausea/Vomiting Pantoprazole Sodium 40 mg 02/29/20 09:00 03/05/20 08:46 Protonix PO 40 mg BID SHO Administration Multivit/Folic Acid/Iron 1 tab 02/29/20 09:00 03/05/20 08:25 Vitamin PO 1 tab DAILY SHO Administration Sodium Chloride 10 ml 02/29/20 09:00 03/05/20 08:26 Flush - Normal Saline IVF 10 ml Q12HR SHO Administration Sodium Chloride 10 ml 02/29/20 00:42 03/02/20 22:48 Flush - Normal Saline IVF 10 ml PRN PRN Administration Saline Flush Vitamin E 200 units 03/02/20 09:00 03/05/20 09:02 Vitamin E PO 200 units DAILY SHO Administration Zinc Sulfate 220 mg 03/02/20 09:00 03/05/20 08:47 Zinc Sulfate PO 220 mg DAILY SHO Administration - Exam General Appearance: NAD, awake alert Eye: PERRL, anicteric sclera ENT: normocephalic atraumatic, no oropharyngeal lesions Neck: supple, symmetric, no JVD, no thyromegaly Heart: RRR, no murmur, no gallops, no rubs Respiratory: CTAB, no wheezes, no ronchi Gastrointestinal: soft, non-tender, non-distended, normal bowel sounds Extremities: no cyanosis, no clubbing, no edema Skin: normal turgor, no lesions, no rashes Neurological: cranial nerve grossly intact, normal sensation to touch, no focal deficits, no new deficit Musculoskeletal: normal tone, normal strength, no muscle wasting Hosp A/P - Plan THis is 64 year old female with COVID who presentd with worsening weaakness and SOB on exertion COVID pneumonia - repeat COVID swab pending - she is not on oxygen - continue supportive care Hypertensive urgency - increase clonidine to 0.2 mg bid, will monitor overnight Type II diabetes - continue lantus Code status: pending repeat COVID swab. Consider d/c home in am if BP controlled
[2020-03-05] MEDS: Insulin Glargine 30 UNITS in Pre-Filled Syringe 1 EACH SC SCH (21:57)
[2020-03-06] MEDS: hydrALAZINE 25 MG TAB PO SCH ×3 (00:20→16:38)
[2020-03-06] MEDS: cloNIDine 0.2 MG TAB PO SCH ×2 (00:20→08:08)
[2020-03-06] MEDS: Ondansetron PF 4 MG/2 ML Vial IVP PRN (00:20)
[2020-03-06] MEDS: Ferrous Sulfate 325 MG TAB PO SCH ×2 (08:07→16:38)
[2020-03-06] MEDS: Ascorbic Acid 500 mg Chewable Tablet PO SCH (08:07)
[2020-03-06] MEDS: Dexamethasone 4 MG TAB PO SCH (08:08)
[2020-03-06] MEDS: Leflunomide 10 mg Tablet PO SCH (08:09)
[2020-03-06] MEDS: Heparin 5,000 UNITS/ML VIAL SC SCH ×3 (08:09→21:15)
[2020-03-06] MEDS: Labetalol 100 MG TAB PO SCH ×2 (08:09→21:15)
[2020-03-06] MEDS: NIFEdipine XL 30 MG TAB PO SCH ×2 (08:10→21:16)
[2020-03-06] MEDS: Prenatal Vitamin 1 TAB PO SCH (08:10)
[2020-03-06] MEDS: Zinc Sulfate 220 MG CAP PO SCH (08:11)
[2020-03-06] MEDS ORDERED: Amlodipine 10 MG TAB PO SCH (10:15)
[2020-03-06 10:21] LABS: Hemoglobin 8.3 g/dL (12.0-16.0); Mean Corpuscular HGB CONC 32.2 g/dL (32.0-36.0); Mean Corpuscular Volume 68.3 fL (78.0-98.0); Mean Platelet Volume 8.5 fL (7.4-10.4); Platelet Count 493 thou/uL (130-400); RBC Distribution Width 13.3 % (11.5-14.5); Red Blood Cell (RBC) Count 3.76 mill/uL (4.20-5.40); White Blood Cell (WBC) Count 14.9 thou/uL (4.8-10.8)
[2020-03-06 10:37] LABS: Anion Gap 16 mmol/L (10-20); BUN (Urea Nitrogen) 59 mg/dL (9.8-20.1); Calc. Creatinine Clearance 13 mL/min (70-130); Calcium 8.1 mg/dL (7.8-10.44); Carbon Dioxide 17 mmol/L (23-31); Chloride 101 mmol/L (98-107); Estimated GFR-MDRD 13; Glucose 76 mg/dL (80-115); Potassium 5.1 mmol/L (3.5-5.1); Sodium 129 mmol/L (136-145)
[2020-03-06 14:06] LABS: SARS-CoV-2 MS2 Positive; SARS-CoV-2 N Gene Positive; SARS-CoV-2 orf1ab Positive
[2020-03-06 14:08] LABS: SARS-CoV-2 S Gene Positive
--- NOTE | 2020-03-06 20:15 | PDOC.HOSPP ---
- Subjective Encounter Date: 03/06/20 Encounter Time: 15:00 Subjective: F/u: COVID THe patient has no complaints other than fatigue. She denies cough or SOB Patient repeat COVID testing positive. She is asking for a note saying that she is positive for COVID so she can give it to her workplace - Objective Vital Signs & Weight: Vital Signs (12 hours) Temp Pulse Resp BP BP BP BP 03/06/20 17:26 97.6 F 92 20 175/79 H 03/06/20 13:46 130/60 138/64 100/52 L 03/06/20 12:00 99.1 F 84 22 H 142/67 H 03/06/20 10:10 79 146/76 H Pulse Ox 03/06/20 17:26 95 03/06/20 13:46 03/06/20 12:00 99 03/06/20 10:10 Weight Admit Weight 137 lb 9.6 oz Weight 138 lb 3.2 oz I&O: 03/05/20 03/06/20 03/07/20 06:59 06:59 06:59 Intake Total 600 1447 720 Output Total 800 Balance 600 647 720 Result Diagrams: 03/06/20 10:06 03/06/20 10:06 Additional Labs: Accuchecks 03/06/20 03/06/20 03/06/20 17:13 11:54 06:09 POC Glucose 152 H 89 82 03/05/20 22:12 POC Glucose 130 H Hospitalist ROS - Review of Systems Constitutional: denies: fever, chills - Medication Medications: Active Medications Generic Name Dose Route Start Last Admin Trade Name Edenilson PRN Reason Stop Dose Admin Acetaminophen 1,000 mg 03/02/20 23:26 03/04/20 09:11 Tylenol PO 1,000 mg Q8H PRN Administration FEVER/PAIN Artificial Tears 2 drop 03/01/20 13:54 03/05/20 08:23 Tears Naturale EA EYE 2 drop PRN PRN Administration Dry Eyes Ascorbic Acid 1,000 mg 03/02/20 09:00 03/06/20 08:07 Vitamin C PO 1,000 mg DAILY SHO Administration Clonidine 0.2 mg 03/05/20 21:00 03/06/20 08:08 Catapres PO 0.2 mg BID SHO Administration Cyclobenzaprine HCl 5 mg 03/03/20 23:13 03/05/20 21:58 Flexeril PO 5 mg TIDPRN PRN Administration Muscle Spasm Dexamethasone 6 mg 03/04/20 09:00 03/06/20 08:08 Decadron PO 6 mg DAILY SHO Administration Diphenhydramine HCl 25 mg 03/01/20 13:54 03/02/20 21:07 Benadryl PO 25 mg Q4H PRN Administration Itching & Hives (mild) Ferrous Sulfate 325 mg 03/02/20 17:00 03/06/20 16:38 Feosol PO 325 mg BID-WM SHO Administration Heparin Sodium (Porcine) 5,000 units 02/29/20 09:00 03/06/20 16:38 Heparin SC 5,000 units TID SHO Administration Hydralazine HCl 100 mg 02/29/20 09:00 03/06/20 16:38 Apresoline PO 100 mg TID SHO Administration Hydralazine HCl 10 mg 03/01/20 13:54 03/01/20 21:30 Apresoline SLOW IVP 10 mg Q4H PRN Administration SBP > 180 and HR < 70 Insulin Glargine 30 units/ 0.3 mls @ 0 mls/hr 02/29/20 21:00 03/05/20 21:57 Miscellaneous Medication SC 0.3 mls HS SHO Administration Insulin Human Lispro 0 units 03/04/20 06:56 03/05/20 17:40 Humalog SC 9 units .AGGRESSIVE SLIDING PRN Administration Aggressive Correctional Scale Labetalol HCl 400 mg 02/29/20 09:00 03/06/20 08:09 Normodyne PO 400 mg BID SHO Administration Leflunomide 20 mg 02/29/20 09:00 03/06/20 08:09 Arava PO 20 mg DAILY SHO Administration Loperamide HCl 2 mg 03/01/20 13:54 03/02/20 16:19 Imodium PO 2 mg PRN PRN Administration Diarrhea/Loose Stools Metoclopramide HCl 5 mg 03/01/20 13:54 03/02/20 22:45 Reglan IVP 5 mg Q4H PRN Administration Nausea Ondansetron HCl 4 mg 02/28/20 23:19 03/06/20 00:20 Zofran IVP 4 mg Q6H PRN Administration Nausea/Vomiting Pantoprazole Sodium 40 mg 02/29/20 09:00 03/06/20 08:10 Protonix PO 40 mg BID SHO Administration Multivit/Folic Acid/Iron 1 tab 02/29/20 09:00 03/06/20 08:10 Vitamin PO 1 tab DAILY SHO Administration Sodium Chloride 10 ml 02/29/20 09:00 03/06/20 08:10 Flush - Normal Saline IVF 10 ml Q12HR SHO Administration Sodium Chloride 10 ml 02/29/20 00:42 03/02/20 22:48 Flush - Normal Saline IVF 10 ml PRN PRN Administration Saline Flush Vitamin E 200 units 03/02/20 09:00 03/06/20 08:11 Vitamin E PO 200 units DAILY SHO Administration Zinc Sulfate 220 mg 03/02/20 09:00 03/06/20 08:11 Zinc Sulfate PO 220 mg DAILY SHO Administration - Exam General Appearance: NAD, awake alert Eye: PERRL, anicteric sclera ENT: normocephalic atraumatic, no oropharyngeal lesions Neck: no JVD Heart: RRR, no murmur, no gallops, no rubs Respiratory: CTAB, no wheezes, no rales, no ronchi Gastrointestinal: soft, non-tender, non-distended, normal bowel sounds Extremities: no cyanosis, no clubbing, no edema Skin: normal turgor, no lesions, no rashes Hosp A/P - Plan THis is 64 year old female with COVID who presentd with worsening weaakness and SOB on exertion COVID pneumonia - repeat COVID swab still positive - wean oxygen sat to 92% - continue supportive care Hypertensive urgency - increased nifedipine to 60 mg bid, BP still 200's - clonidine increased to 0.2 mg bid 03/05 - continue other antihypertensives Type II diabetes - continue lantus Code status:
[2020-03-06] MEDS: Cyclobenzaprine 10 MG TAB PO PRN (21:16)
[2020-03-06] MEDS: Insulin Glargine 30 UNITS in Pre-Filled Syringe 1 EACH SC SCH (21:20)
[2020-03-07] MEDS: cloNIDine 0.2 MG TAB PO SCH ×3 (00:14→21:24)
[2020-03-07 00:30] LABS: Bacteria/HPF None Seen HPF (None Seen); RBC/HPF 0-3 HPF (0-3); Squamous Epithelial None Seen HPF (0-3); WBC/HPF 0-3 HPF (0-3)
[2020-03-07] MEDS: hydrALAZINE 25 MG TAB PO SCH ×4 (03:37→21:24)
[2020-03-07] MEDS ORDERED: Amlodipine 10 MG TAB PO SCH (09:00)
[2020-03-07] MEDS: NIFEdipine XL 30 MG TAB PO SCH ×2 (09:51→21:25)
[2020-03-07] MEDS: Prenatal Vitamin 1 TAB PO SCH (09:51)
[2020-03-07] MEDS: Zinc Sulfate 220 MG CAP PO SCH (09:51)
[2020-03-07] MEDS: Ascorbic Acid 500 mg Chewable Tablet PO SCH (09:51)
[2020-03-07] MEDS: Ferrous Sulfate 325 MG TAB PO SCH ×2 (09:52→15:07)
[2020-03-07] MEDS: Labetalol 100 MG TAB PO SCH ×2 (09:52→21:25)
[2020-03-07] MEDS: Dexamethasone 4 MG TAB PO SCH (09:52)
[2020-03-07] MEDS: Heparin 5,000 UNITS/ML VIAL SC SCH ×3 (09:54→21:25)
[2020-03-07 10:18] LABS: Mean Corpuscular HGB CONC 31.6 g/dL (32.0-36.0); Mean Corpuscular Hemoglobin 21.9 pg (27.0-31.0); Mean Corpuscular Volume 69.2 fL (78.0-98.0); Mean Platelet Volume 8.2 fL (7.4-10.4); Platelet Count 512 thou/uL (130-400); RBC Distribution Width 13.5 % (11.5-14.5); Red Blood Cell (RBC) Count 4.13 mill/uL (4.20-5.40)
[2020-03-07 10:22] LABS: Anion Gap 15 mmol/L (10-20); BUN (Urea Nitrogen) 72 mg/dL (9.8-20.1); Calc. Creatinine Clearance 12 mL/min (70-130); Calcium 8.2 mg/dL (7.8-10.44); Carbon Dioxide 18 mmol/L (23-31); Chloride 102 mmol/L (98-107); Estimated GFR-MDRD 13; Glucose 116 mg/dL (80-115); Sodium 130 mmol/L (136-145)
[2020-03-07] MEDS: Leflunomide 10 mg Tablet PO SCH (10:35)
--- NOTE | 2020-03-07 12:52 | PQF ---
CLINICAL DOCUMENTATION IMPROVEMENT CLARIFICATION FORM: ICD-10 Updated PLEASE DO AN ADDENDUM TO THE PROGRESS NOTE WITH ANY DOCUMENTATION UPDATES OR ADDITIONS AND CARRY THROUGH TO DC SUMMARY. THANK YOU. DATE: 03/07/2020 ATTN: Dr. Salinas Please exercise your independent, professional judgment in responding to the clarification form. Clinical indicators are provided on the bottom of this form for your review Please check appropriate box(s): [ X] Acute Respiratory Failure: [ X ] with Hypoxia [ ] with Hypercapnia [ ] Acute Respiratory Failure due to: (etiology) [ ] Acute On Chronic Respiratory Failure: [ ] with Hypoxia [ ] with Hypercapnia [ ] Respiratory Insufficiency [ ] Hypoxia [ ] Other diagnosis [ ] Unable to determine In addition, please specify: Present on Admission (POA): [ ] Yes [ ] No [ ] Unable to determine For continuity of documentation, please document condition throughout progress notes and discharge summary. Thank You. CLINICAL INDICATORS - SIGNS / SYMPTOMS / LABS / RESULTS AND LOCATION IN MR 03/01 ([place]) VS: Temp. 100.2 pulse 90, resp. 20, Pulse Ox 90 A/P: Acute respiratory disease due to 2019 novel coronavirus Nursing VS: 03/05: O2 sat @ 2113/ 2214: 83 RA 93 2L NC Nursing Note 03/06 0930: RT called for asst to manage high flow O2 since pt's sats are 88% 182: O2 was increased to 3L/NC with 1600 VS to keep sats >92% RISKS: H&P 02/27: A/P: recently diagnosed with COVID 19 pneumonia. RAFAELA on CKD; HX of DM on insulin. TREATMENT: Order 02/27: Resp: Pulse Ox/O2 sat: On admission and daily - Notify provider if oxygen <92% 03/03 ([place]) ..start Decadron 6mg daily since she is going to a more inflammatory phase of the illness. Thank you, Claudine (This form is maintained as a part of the permanent medical record) 2014 [employer] All Rights Reserved Claudine Tiwari RN, BSN [email or web address]
[2020-03-07] MEDS: Ondansetron PF 4 MG/2 ML Vial IVP PRN (12:56)
[2020-03-07] MEDS: Metoclopramide HCl 10 MG/2 ML VIAL IVP PRN (15:07)
--- NOTE | 2020-03-07 16:50 | PDOC.HOSPP ---
- Subjective Encounter Date: 03/07/20 Encounter Time: 14:00 Subjective: The patient's blood pressure is labile per nursing, few days ago BP was 70 while standing. Patient denies headaches. She did not answer any other questions for me today and kept her eyes closed the whole time. - Objective Vital Signs & Weight: Vital Signs (12 hours) Temp Pulse Pulse Resp BP BP BP 03/07/20 15:23 98.6 F 84 22 H 150/73 H 03/07/20 15:07 76 03/07/20 12:00 76 24 H 182/95 H 03/07/20 10:39 148/78 H 03/07/20 10:24 65 143/74 H 03/07/20 09:52 86 03/07/20 09:51 86 03/07/20 08:10 98.1 F 86 22 H 165/74 H 03/07/20 08:00 Pulse Ox Pulse Ox 03/07/20 15:23 98 03/07/20 15:07 03/07/20 12:00 98 03/07/20 10:39 03/07/20 10:24 94 L 03/07/20 09:52 03/07/20 09:51 03/07/20 08:10 93 L 03/07/20 08:00 99 Weight Admit Weight 137 lb 9.6 oz Weight 127 lb 8 oz I&O: 03/06/20 03/07/20 03/08/20 06:59 06:59 06:59 Intake Total 1447 1080 Output Total 800 600 Balance 647 480 Result Diagrams: 03/07/20 09:55 03/07/20 09:55 Additional Labs: Accuchecks 03/07/20 03/06/20 03/06/20 05:49 21:31 17:13 POC Glucose 92 179 H 152 H Hospitalist ROS - Review of Systems Cardiovascular: denies: chest pain - Medication Medications: Active Medications Generic Name Dose Route Start Last Admin Trade Name Freq PRN Reason Stop Dose Admin Acetaminophen 1,000 mg 03/02/20 23:26 03/04/20 09:11 Tylenol PO 1,000 mg Q8H PRN Administration FEVER/PAIN Artificial Tears 2 drop 03/01/20 13:54 03/05/20 08:23 Tears Naturale EA EYE 2 drop PRN PRN Administration Dry Eyes Ascorbic Acid 1,000 mg 03/02/20 09:00 03/07/20 09:51 Vitamin C PO 1,000 mg DAILY SHO Administration Clonidine 0.2 mg 03/05/20 21:00 03/07/20 09:52 Catapres PO 0.2 mg BID SHO Administration Cyclobenzaprine HCl 5 mg 03/03/20 23:13 03/06/20 21:16 Flexeril PO 5 mg TIDPRN PRN Administration Muscle Spasm Dexamethasone 6 mg 03/04/20 09:00 03/07/20 09:52 Decadron PO 6 mg DAILY SHO Administration Diphenhydramine HCl 25 mg 03/01/20 13:54 03/02/20 21:07 Benadryl PO 25 mg Q4H PRN Administration Itching & Hives (mild) Ferrous Sulfate 325 mg 03/02/20 17:00 03/07/20 15:07 Feosol PO 325 mg BID-WM SHO Administration Heparin Sodium (Porcine) 5,000 units 02/29/20 09:00 03/07/20 15:07 Heparin SC 5,000 units TID SHO Administration Hydralazine HCl 100 mg 02/29/20 09:00 03/07/20 15:07 Apresoline PO 100 mg TID SHO Administration Hydralazine HCl 10 mg 03/01/20 13:54 03/01/20 21:30 Apresoline SLOW IVP 10 mg Q4H PRN Administration SBP > 180 and HR < 70 Insulin Glargine 30 units/ 0.3 mls @ 0 mls/hr 02/29/20 21:00 03/06/20 21:20 Miscellaneous Medication SC 0.3 mls HS SHO Administration Insulin Human Lispro 0 units 03/04/20 06:56 03/05/20 17:40 Humalog SC 9 units .AGGRESSIVE SLIDING PRN Administration Aggressive Correctional Scale Labetalol HCl 400 mg 02/29/20 09:00 03/07/20 09:52 Normodyne PO 400 mg BID SHO Administration Leflunomide 20 mg 02/29/20 09:00 03/07/20 10:35 Arava PO 20 mg DAILY SHO Administration Loperamide HCl 2 mg 03/01/20 13:54 03/02/20 16:19 Imodium PO 2 mg PRN PRN Administration Diarrhea/Loose Stools Metoclopramide HCl 5 mg 03/01/20 13:54 03/07/20 15:07 Reglan IVP 5 mg Q4H PRN Administration Nausea Nifedipine 60 mg 03/06/20 21:00 03/07/20 09:51 Procardia Xl PO 60 mg BID SHO Administration Ondansetron HCl 4 mg 02/28/20 23:19 03/07/20 12:56 Zofran IVP 4 mg Q6H PRN Administration Nausea/Vomiting Pantoprazole Sodium 40 mg 02/29/20 09:00 03/07/20 09:51 Protonix PO 40 mg BID SHO Administration Multivit/Folic Acid/Iron 1 tab 02/29/20 09:00 03/07/20 09:51 Vitamin PO 1 tab DAILY SHO Administration Sodium Chloride 10 ml 02/29/20 09:00 03/07/20 09:55 Flush - Normal Saline IVF 10 ml Q12HR SHO Administration Sodium Chloride 10 ml 02/29/20 00:42 03/02/20 22:48 Flush - Normal Saline IVF 10 ml PRN PRN Administration Saline Flush Vitamin E 200 units 03/02/20 09:00 03/07/20 10:35 Vitamin E PO 200 units DAILY SHO Administration Zinc Sulfate 220 mg 03/02/20 09:00 03/07/20 09:51 Zinc Sulfate PO 220 mg DAILY SHO Administration - Exam General Appearance: NAD General - other findings: sleeping Eye: PERRL, anicteric sclera ENT: normocephalic atraumatic, no oropharyngeal lesions Neck: no JVD Heart: RRR, no murmur, no gallops, no rubs Respiratory: CTAB, no wheezes, no rales, no ronchi Gastrointestinal: soft, non-tender, non-distended, normal bowel sounds Extremities: no cyanosis, no clubbing, no edema Skin: normal turgor, no lesions, no rashes Neurological: cranial nerve grossly intact, normal sensation to touch, no focal deficits, no new deficit Hosp A/P - Plan THis is 64 year old female with COVID who presentd with worsening weaakness and SOB on exertion COVID pneumonia - repeat COVID swab still positive - wean oxygen sat to 92% - continue supportive care - continue dexamethasone Acute Kidney Injury Hyponatremia - creatinine worsening to > 4 - sodium noted to be 130. Nephrology has been consulted - UA unremarkable - nephrology has been consulted Leukocytosis - WBC 14 but downtrending, could be from steroids - monitor for fevers Hypertensive urgency - continue nifedipine to 60 mg bid, BP improved to 150's - clonidine increased to 0.2 mg bid 03/05 - continue other antihypertensives Type II diabetes - continue lantus Dispo: pending improvement in creatinine
[2020-03-07] MEDS: HumaLOG 300 UNITS/3 ML VIAL SC PRN ×2 (17:53→21:26)
--- NOTE | 2020-03-07 19:04 | CON ---
DATE OF CONSULTATION: 03/07/2020 CONSULTING PHYSICIAN: Rama Salinas MD REASON FOR CONSULTATION: Acute kidney injury. REASON FOR ADMISSION: 1. Dehydration. 2. COVID positive. HISTORY OF PRESENT ILLNESS: This is a 64-year-old female with history of CKD, hyperlipidemia, hypertension, and diabetes, came to the hospital with weakness and malaise. She was tested positive for COVID also. No chest pain or palpitation. She was found to have worsening renal function and hypertension, and Nephrology is consulted. PAST MEDICAL HISTORY: Positive for hypertension, hyperlipidemia, type 2 diabetes, and CKD. PAST SURGICAL HISTORY: Hysterectomy. HOME MEDICATIONS: Reviewed. ALLERGIES: 1. SULFA. 2. TRAMADOL. 3. CITRIC ACID. 4. CODEINE. SOCIAL HISTORY: No smoking, alcohol, or illicit drugs. FAMILY HISTORY: No history of kidney disease. REVIEW OF SYSTEMS: The following complete review of systems was negative, unless otherwise mentioned in the HPI or below: CONSTITUTIONAL: Weight loss or gain, ability to conduct usual activities. SKIN: Rash, itching. EYES: Double vision, pain. ENT/MOUTH: Nose bleeding, neck stiffness, pain, tenderness. CARDIOVASCULAR: Palpitations, dyspnea on exertion, orthopnea. RESPIRATORY: Shortness of breath, wheezing, cough, hemoptysis, fever or night sweats. GASTROINTESTINAL: Poor appetite, abdominal pain, heartburn, nausea, vomiting, constipation, or diarrhea. GENITOURINARY: Urgency, frequency, dysuria, nocturia. MUSCULOSKELETAL: Pain, swelling. NEUROLOGIC/PSYCHIATRIC: Anxiety, depression. ALLERGY/IMMUNOLOGIC: Skin rash, bleeding tendency. PHYSICAL EXAMINATION: GENERAL: This is a well-built female, in no apparent distress. VITAL SIGNS: Temperature 98.6, pulse 84, respiratory rate 20, blood pressure 150/73. HEENT: Atraumatic and normocephalic. Oral mucosa moist. NECK: Supple. CV: S1 and S2 heard. Rate and rhythm regular. RESPIRATORY: Clear. GI: Abdomen is soft. MUSCULOSKELETAL: No edema. DERMATOLOGIC: No skin rash. NEUROLOGIC: Alert and awake. PSYCHIATRIC: Normal mood and affect. LABORATORY DATA: Hemoglobin 9.0. Potassium is 5.0, BUN is 72, creatinine is 4.2. ASSESSMENT AND PLAN: 1. Acute kidney injury, getting worse, most likely related to hemodynamically-mediated injury versus infectious process. 2. Anemia of chronic disease. 3. History of hypertension, seems to be getting better with adjustment in medications. 4. COVID -19 syndrome. No acute indication for dialysis. We will continue to monitor. Avoid nephrotoxins. Medications list reviewed. We will follow. Job ID: [id number]
[2020-03-07] MEDS: Cyclobenzaprine 10 MG TAB PO PRN (19:17)
[2020-03-07] MEDS: Insulin Glargine 30 UNITS in Pre-Filled Syringe 1 EACH SC SCH (21:25)
[2020-03-07] MEDS: Fioricet 325/50/40 mg Tablet PO PRN (22:11)
[2020-03-08] MEDS: Fioricet 325/50/40 mg Tablet PO PRN ×2 (05:41→17:51)
[2020-03-08 07:57] LABS: Hemoglobin 8.2 g/dL (12.0-16.0); Mean Corpuscular Volume 68.7 fL (78.0-98.0); Mean Platelet Volume 7.8 fL (7.4-10.4); Platelet Count 511 thou/uL (130-400); RBC Distribution Width 13.4 % (11.5-14.5); Red Blood Cell (RBC) Count 3.73 mill/uL (4.20-5.40)
[2020-03-08 08:11] LABS: Anion Gap 16 mmol/L (10-20); BUN (Urea Nitrogen) 76 mg/dL (9.8-20.1); Calc. Creatinine Clearance 12 mL/min (70-130); Calcium 8.1 mg/dL (7.8-10.44); Carbon Dioxide 18 mmol/L (23-31); Chloride 101 mmol/L (98-107); Estimated GFR-MDRD 13; Glucose 109 mg/dL (80-115); Potassium 5.4 mmol/L (3.5-5.1); Sodium 130 mmol/L (136-145)
[2020-03-08] MEDS: Prenatal Vitamin 1 TAB PO SCH (09:44)
[2020-03-08] MEDS: Labetalol 100 MG TAB PO SCH ×2 (09:44→20:20)
[2020-03-08] MEDS: Leflunomide 10 mg Tablet PO SCH (09:44)
[2020-03-08] MEDS: NIFEdipine XL 30 MG TAB PO SCH ×2 (09:44→20:17)
[2020-03-08] MEDS: Dexamethasone 4 MG TAB PO SCH (09:45)
[2020-03-08] MEDS: Ascorbic Acid 500 mg Chewable Tablet PO SCH (09:46)
[2020-03-08] MEDS: Zinc Sulfate 220 MG CAP PO SCH (09:46)
[2020-03-08] MEDS: hydrALAZINE 25 MG TAB PO SCH ×3 (09:46→20:19)
[2020-03-08] MEDS: cloNIDine 0.2 MG TAB PO SCH ×2 (09:46→20:18)
[2020-03-08] MEDS: Ferrous Sulfate 325 MG TAB PO SCH ×2 (09:46→16:44)
[2020-03-08] MEDS: Heparin 5,000 UNITS/ML VIAL SC SCH ×2 (09:46→20:58)
--- NOTE | 2020-03-08 10:39 | ULT ---
RENAL ULTRASOUND: INDICATION: Acute renal injury. COMPARISON: Prior exam dated 02/24/2019. FINDINGS: The right kidney measures 8.9 x 4.9 x 4.5 cm. The left kidney measures 9.1 x 5.1 x 4.6 cm. The left kidney remains mildly echogenic. There is no hydronephrosis. The bladder appears within normal fuentes its. The left ureteral jet is identified. The right ureteral jet is not seen on the examination of the bladder. No free fluid is evident. IMPRESSION: 1. No hydronephrosis or focal renal lesion. 2. Slightly increased echogenicity of the left kidney is similar to a comparison examination dated which may reflect sequelae of underlying medial renal disease. POS: BH
--- NOTE | 2020-03-08 11:05 | RAD ---
PORTABLE CHEST: HISTORY: Hypoxia. Pneumonia followup. COMPARISON: 02/28/2020. FINDINGS: Mild cardiomegaly with mild vascular congestion. There is now diffuse interstitial and hazy alveolar infiltrate seen bilaterally, more pronounced on the left. Findings could represent diffuse edema or coexisting inflammatory infiltrates with mild congestive change. There is evidence of small effusio ns. IMPRESSION: Worsening of the chest when compared to 02/28/2020 as described. POS: AH
[2020-03-08] MEDS ORDERED: Furosemide 40 MG/4 ML VIAL SLOW IVP SCH (11:45)
[2020-03-08] MEDS ORDERED: NIFEdipine XL 30 MG TAB PO SCH (11:45)
--- NOTE | 2020-03-08 12:12 | PDOC.HOSPP ---
- Subjective Encounter Date: 03/08/20 Encounter Time: 11:00 Subjective: The patient was noted to desaturate to 88% yesterday. She does not feel SOB, no chest pain. No abdominal pain - Objective Vital Signs & Weight: Vital Signs (12 hours) Temp Pulse Resp BP Pulse Ox 03/08/20 12:00 98.2 F 85 18 163/76 H 100 03/08/20 09:46 86 03/08/20 09:44 86 03/08/20 08:59 99 03/08/20 08:42 95 03/08/20 08:00 98 F 16 208/95 H 99 03/08/20 05:40 98 F 86 20 195/88 H 95 03/08/20 05:14 96 03/08/20 01:05 98.5 F 78 18 160/74 H 96 Weight Admit Weight 137 lb 9.6 oz Weight 128 lb 3.2 oz I&O: 03/07/20 03/08/20 03/09/20 06:59 06:59 06:59 Intake Total 1080 Output Total 600 Balance 480 Result Diagrams: 03/08/20 07:46 03/08/20 07:46 Additional Labs: Accuchecks 03/07/20 03/07/20 19:28 17:17 POC Glucose 311 H 216 H Hospitalist ROS - Review of Systems Constitutional: denies: fever, chills - Medication Medications: Active Medications Generic Name Dose Route Start Last Admin Trade Name Freq PRN Reason Stop Dose Admin Acetaminophen 1,000 mg 03/02/20 23:26 03/04/20 09:11 Tylenol PO 1,000 mg Q8H PRN Administration FEVER/PAIN Acetaminophen/Butalbital/Caffeine 1 tab 03/07/20 22:02 03/08/20 05:41 Fioricet PO 03/12/20 22:03 1 tab Q4H PRN Administration Headache Artificial Tears 2 drop 03/01/20 13:54 03/05/20 08:23 Tears Naturale EA EYE 2 drop PRN PRN Administration Dry Eyes Ascorbic Acid 1,000 mg 03/02/20 09:00 03/08/20 09:46 Vitamin C PO 1,000 mg DAILY SHO Administration Clonidine 0.2 mg 03/05/20 21:00 03/08/20 09:46 Catapres PO 0.2 mg BID SHO Administration Cyclobenzaprine HCl 5 mg 03/03/20 23:13 03/07/20 19:17 Flexeril PO 5 mg TIDPRN PRN Administration Muscle Spasm Dexamethasone 6 mg 03/04/20 09:00 03/08/20 09:45 Decadron PO 6 mg DAILY SHO Administration Diphenhydramine HCl 25 mg 03/01/20 13:54 03/02/20 21:07 Benadryl PO 25 mg Q4H PRN Administration Itching & Hives (mild) Ferrous Sulfate 325 mg 03/02/20 17:00 03/08/20 09:46 Feosol PO 325 mg BID-WM SHO Administration Furosemide 40 mg 03/08/20 11:45 03/08/20 11:42 Lasix SLOW IVP 03/08/20 13:45 40 mg NOW SHO Administration Hydralazine HCl 100 mg 02/29/20 09:00 03/08/20 09:46 Apresoline PO 100 mg TID SHO Administration Hydralazine HCl 10 mg 03/01/20 13:54 03/01/20 21:30 Apresoline SLOW IVP 10 mg Q4H PRN Administration SBP > 180 and HR < 70 Insulin Glargine 30 units/ 0.3 mls @ 0 mls/hr 02/29/20 21:00 03/07/20 21:25 Miscellaneous Medication SC 0.3 mls HS SHO Administration Insulin Human Lispro 0 units 03/04/20 06:56 03/07/20 17:53 Humalog SC 6 units .AGGRESSIVE SLIDING PRN Administration Aggressive Correctional Scale Insulin Human Lispro 0 units 03/04/20 06:56 03/07/20 21:26 Humalog SC 4 unit .BEDTIME SLIDING SC PRN Administration Bedtime Correctional Scale Labetalol HCl 400 mg 02/29/20 09:00 03/08/20 09:44 Normodyne PO 400 mg BID SHO Administration Leflunomide 20 mg 02/29/20 09:00 03/08/20 09:44 Arava PO 20 mg DAILY SHO Administration Loperamide HCl 2 mg 03/01/20 13:54 03/02/20 16:19 Imodium PO 2 mg PRN PRN Administration Diarrhea/Loose Stools Metoclopramide HCl 5 mg 03/01/20 13:54 03/07/20 15:07 Reglan IVP 5 mg Q4H PRN Administration Nausea Nifedipine 30 mg 03/08/20 11:45 03/08/20 11:42 Procardia Xl PO 03/08/20 13:45 30 mg NOW SHO Administration Ondansetron HCl 4 mg 02/28/20 23:19 03/07/20 12:56 Zofran IVP 4 mg Q6H PRN Administration Nausea/Vomiting Pantoprazole Sodium 40 mg 02/29/20 09:00 03/08/20 09:46 Protonix PO 40 mg BID SHO Administration Multivit/Folic Acid/Iron 1 tab 02/29/20 09:00 03/08/20 09:44 Vitamin PO 1 tab DAILY SHO Administration Sodium Chloride 10 ml 02/29/20 09:00 03/08/20 09:47 Flush - Normal Saline IVF 10 ml Q12HR SHO Administration Sodium Chloride 10 ml 02/29/20 00:42 03/02/20 22:48 Flush - Normal Saline IVF 10 ml PRN PRN Administration Saline Flush Vitamin E 200 units 03/02/20 09:00 03/08/20 11:39 Vitamin E PO 200 units DAILY SHO Administration Zinc Sulfate 220 mg 03/02/20 09:00 03/08/20 09:46 Zinc Sulfate PO 220 mg DAILY SHO Administration - Exam General Appearance: NAD, awake alert Eye: PERRL, anicteric sclera ENT: normocephalic atraumatic, no oropharyngeal lesions Neck: supple, no JVD Heart: no murmur, no gallops, no rubs Respiratory - other findings: diminnished breath sounds Gastrointestinal: soft, non-tender, non-distended, normal bowel sounds Extremities: no cyanosis, no clubbing Skin: normal turgor, no lesions, no rashes Neurological: cranial nerve grossly intact, normal sensation to touch, no focal deficits, no new deficit Musculoskeletal: normal tone, normal strength, no muscle wasting Hosp A/P - Plan THis is 64 year old female with COVID who presented with worsening weaakness and SOB on exertion #Acute hypoxic respiratory failure secondary to COVID pneumonia and possible CHF - repeat COVID swab still positive - continue dexamethasone - out of window for antivirals - chest Xray 03/08 shows worsening pulmonary congestion. Lasix 40 mg IV administered #Acute Kidney Injury #Hyponatremia #Hyperkalemia - creatinine 4.27, sodium 130, potassium 5.4 - ordered lasix 40 mg IV x 1 - repeat BMP tomorrow #Leukocytosis - WBC 14 but downtrending, could be from steroids - monitor for fevers #Hypertensive urgency - nifedipine increased to 90 mg bid - clonidine increased to 0.2 mg bid 03/05 - continue hydralazine 100 mg tid and labetalol 400 mg bid Type II diabetes - continue judith Dispo: pending improvement in hypoxia and creatinine
[2020-03-08] MEDS: Isosorbide Dinitrate 20 MG TAB PO SCH ×2 (15:16→20:19)
--- NOTE | 2020-03-08 16:20 | PRG ---
DATE OF SERVICE: 03/08/2020 SUBJECTIVE: Patient was seen and examined at bedside and overnight events noted. Patient denies any shortness of breath or chest pain or palpitation. No history of nausea or vomiting or diarrhea or fever or chills or cramps. OBJECTIVE: General: This is a well-built female, in no apparent distress. Vital Signs: Temperature 98.5. Heart Rate 80. Respiratory rate 18. Blood pressure 169/71. HEENT: Atraumatic, normocephalic. Oral mucosa is moist. Neck: Supple. Cardiovascular: S1, S2 heard. Rate and rhythm regular. Respiratory: Clear to auscultation. Gastrointestinal: Abdomen is soft. Musculoskeletal: No tenderness. No edema. Dermatologic: No skin rash. Neurologic: Alert and awake and oriented x3. No focal neurologic deficits. Moving all the extremities. Psychiatric: Mood and affect normal. LABORATORY DATA: Potassium 5.4, BUN is 76, and creatinine is 4.2. ASSESSMENT AND PLAN: 1. Acute kidney injury on chronic kidney disease stage 4 with worsening labs. No acute indication for dialysis. 2. Edema. We will try Lasix. 3. Hyperkalemia . 4. Hyponatremia, limit fluid intake. 5. Acidosis. 6. Hypertension. 7. COVID-19 infection. Plan is to try Lasix today. Limit potassium intake. We will monitor. No acute indication for dialysis, but if renal function is not improving, might need renal replacement therapy in the near future. Job ID: [id number]
[2020-03-08] MEDS: HumaLOG 300 UNITS/3 ML VIAL SC PRN ×2 (17:51→20:57)
[2020-03-08] MEDS: Insulin Glargine 30 UNITS in Pre-Filled Syringe 1 EACH SC SCH (20:58)
[2020-03-09] MEDS: HumaLOG 300 UNITS/3 ML VIAL SC PRN ×2 (05:02→18:12)
[2020-03-09] MEDS: Labetalol 100 MG TAB PO SCH ×2 (09:20→20:51)
[2020-03-09] MEDS: Prenatal Vitamin 1 TAB PO SCH (09:21)
[2020-03-09] MEDS: hydrALAZINE 25 MG TAB PO SCH ×3 (09:21→20:51)
[2020-03-09] MEDS: Zinc Sulfate 220 MG CAP PO SCH (09:21)
[2020-03-09] MEDS: Isosorbide Dinitrate 20 MG TAB PO SCH ×3 (09:21→20:51)
[2020-03-09] MEDS: Ascorbic Acid 500 mg Chewable Tablet PO SCH (09:21)
[2020-03-09] MEDS: cloNIDine 0.2 MG TAB PO SCH ×2 (09:22→20:52)
[2020-03-09] MEDS: NIFEdipine XL 30 MG TAB PO SCH ×2 (09:22→20:51)
[2020-03-09] MEDS: Dexamethasone 4 MG TAB PO SCH (09:22)
[2020-03-09] MEDS: Ferrous Sulfate 325 MG TAB PO SCH ×2 (09:22→18:02)
[2020-03-09] MEDS: Heparin 5,000 UNITS/ML VIAL SC SCH ×2 (09:23→20:52)
[2020-03-09] MEDS: Leflunomide 10 mg Tablet PO SCH (09:24)
[2020-03-09] MEDS: Ondansetron PF 4 MG/2 ML Vial IVP PRN (10:42)
[2020-03-09 11:43] LABS: Anion Gap 18 mmol/L (10-20); BUN (Urea Nitrogen) 82 mg/dL (9.8-20.1); Calc. Creatinine Clearance 13 mL/min (70-130); Calcium 8.6 mg/dL (7.8-10.44); Carbon Dioxide 19 mmol/L (23-31); Chloride 101 mmol/L (98-107); Estimated GFR-MDRD 14; Glucose 101 mg/dL (80-115); Potassium 5.3 mmol/L (3.5-5.1); Sodium 133 mmol/L (136-145)
[2020-03-09] MEDS ORDERED: Furosemide 40 MG/4 ML VIAL SLOW IVP SCH (12:00)
--- NOTE | 2020-03-09 12:59 | PRG ---
DATE OF SERVICE: 03/09/2020 SUBJECTIVE: Patient was seen and examined at bedside and overnight events noted. Patient denies any shortness of breath or chest pain or palpitation. No history of nausea or vomiting or diarrhea or fever or chills or cramps. OBJECTIVE: GENERAL: This is a well-built female, in no apparent distress. VITAL SIGNS: Temperature 99.2. Heart rate 112. Respiratory rate 16. Blood pressure 200/92. HEENT: Atraumatic, normocephalic. Oral mucosa is moist NECK: Supple. CARDIOVASCULAR: S1, S2 heard. Rate and rhythm regular. RESPIRATORY: Clear to auscultation. GASTROINTESTINAL: Abdomen is soft. MUSCULOSKELETAL: No tenderness. No edema. DERMATOLOGIC: No skin rash. NEUROLOGIC: Alert and awake and oriented X3. No focal neurologic deficits. Moving all the extremities. PSYCHIATRIC: Mood and affect normal. LABORATORY DATA: Potassium 5.3, BUN is 82, creatinine is 3.8. ASSESSMENT AND PLAN: 1. Acute kidney injury on chronic kidney disease, stage 4. Renal function is better today and we will give another dose of Lasix. 2. Edema. 3. Hyperkalemia. 4. Acidosis. 5. Hypertension. 6. COVID-19 infection. Plan to give another dose of Lasix. We will monitor. Job ID: [id number]
--- NOTE | 2020-03-09 17:39 | PRG ---
DATE OF SERVICE: 03/09/2020 SUBJECTIVE: Ms. Roberts is a little bit apathetic, but at the end of the interview, she was able to become more alert, and she has talked to me. She ate breakfast and lunch and she is needing to void now. She is coughing less. She has no dyspnea. Noted a little bit of diarrhea. OBJECTIVE: VITAL SIGNS: T-max 99.8, blood pressure 150/70, pulse 95, and O2 saturations are 97, she is on room air now. GENERAL: Awake, oriented, follows commands. LUNGS: Symmetric, clear breath sounds. HEART: S1 and S2, regular rate. ABDOMEN: Soft and not distended. LABORATORY DATA: White cell count went up a bit to 14,000, probably from the steroids; hemoglobin 8.2; platelets are up at 511. The D-dimer on March 04 was 2.55, and ferritin went up to 4600 on 03/04, needs to be repeated. The creatinine is at 3.[address] Messer is following the patient and he gave her a dose of Lasix. ASSESSMENT AND DISCUSSION: Chronic kidney disease stage 5, diabetes type 2, rheumatoid arthritis, COVID pneumonia. The patient will be completing her 7th day of Decadron today and then a few more days and then we can discontinue it. Probably, can discontinue it now anyway. I do not think she needs it anymore. Recheck inflammatory markers. Job ID: [id number]
--- NOTE | 2020-03-09 17:50 | PDOC.HOSPP ---
- Subjective Encounter Date: 03/09/20 Encounter Time: 12:00 Subjective: The patient has no complaints today. She says she did feel some fatigue while walkin to the bathroom. She is eating well. Her oxygen is being weaned today - Objective Vital Signs & Weight: Vital Signs (12 hours) Temp Pulse Resp BP BP Pulse Ox 03/09/20 16:01 99.3 F 95 16 158/74 H 97 03/09/20 14:38 145/77 H 03/09/20 13:07 99.8 F H 100 18 139/63 100 03/09/20 11:29 100 03/09/20 09:36 99.2 F 112 H 16 200/92 H 100 Weight Admit Weight 137 lb 9.6 oz Weight 128 lb I&O: 03/08/20 03/09/20 03/10/20 06:59 06:59 06:59 Intake Total 400 Output Total 2250 Balance -1850 Result Diagrams: 03/08/20 07:46 03/09/20 11:17 Additional Labs: Accuchecks 03/09/20 03/09/20 03/08/20 13:08 04:47 20:42 POC Glucose 143 H 186 H 292 H Hospitalist ROS - Review of Systems Constitutional: denies: fever, chills - Medication Medications: Active Medications Generic Name Dose Route Start Last Admin Trade Name Edenilson PRN Reason Stop Dose Admin Acetaminophen 1,000 mg 03/02/20 23:26 03/04/20 09:11 Tylenol PO 1,000 mg Q8H PRN Administration FEVER/PAIN Acetaminophen/Butalbital/Caffeine 1 tab 03/07/20 22:02 03/08/20 17:51 Fioricet PO 03/12/20 22:03 1 tab Q4H PRN Administration Headache Artificial Tears 2 drop 03/01/20 13:54 03/05/20 08:23 Tears Naturale EA EYE 2 drop PRN PRN Administration Dry Eyes Ascorbic Acid 1,000 mg 03/02/20 09:00 03/09/20 09:21 Vitamin C PO 1,000 mg DAILY SHO Administration Calcium Carbonate 1,000 mg 03/01/20 13:54 03/08/20 16:44 Tums PO 1,000 mg Q4H PRN Administration Heartburn or Indigestion Clonidine 0.2 mg 03/05/20 21:00 03/09/20 09:22 Catapres PO 0.2 mg BID SHO Administration Cyclobenzaprine HCl 5 mg 03/03/20 23:13 03/07/20 19:17 Flexeril PO 5 mg TIDPRN PRN Administration Muscle Spasm Diphenhydramine HCl 25 mg 03/01/20 13:54 03/02/20 21:07 Benadryl PO 25 mg Q4H PRN Administration Itching & Hives (mild) Ferrous Sulfate 325 mg 03/02/20 17:00 03/09/20 09:22 Feosol PO 325 mg BID-WM SHO Administration Heparin Sodium (Porcine) 5,000 units 03/08/20 21:00 03/09/20 09:23 Heparin SC 5,000 units BID SHO Administration Hydralazine HCl 100 mg 02/29/20 09:00 03/09/20 15:54 Apresoline PO 100 mg TID SHO Administration Hydralazine HCl 10 mg 03/01/20 13:54 03/01/20 21:30 Apresoline SLOW IVP 10 mg Q4H PRN Administration SBP > 180 and HR < 70 Insulin Glargine 30 units/ 0.3 mls @ 0 mls/hr 02/29/20 21:00 03/08/20 20:58 Miscellaneous Medication SC 0.3 mls HS SHO Administration Insulin Human Lispro 0 units 03/04/20 06:56 03/09/20 05:02 Humalog SC 3 units .AGGRESSIVE SLIDING PRN Administration Aggressive Correctional Scale Insulin Human Lispro 0 units 03/04/20 06:56 03/08/20 20:57 Humalog SC 3 unit .BEDTIME SLIDING SC PRN Administration Bedtime Correctional Scale Isosorbide Dinitrate 20 mg 03/08/20 15:00 03/09/20 15:54 Isordil PO 20 mg TID SHO Administration Labetalol HCl 400 mg 02/29/20 09:00 03/09/20 09:20 Normodyne PO 400 mg BID SHO Administration Leflunomide 20 mg 02/29/20 09:00 03/09/20 09:24 Arava PO 20 mg DAILY SHO Administration Loperamide HCl 2 mg 03/01/20 13:54 03/02/20 16:19 Imodium PO 2 mg PRN PRN Administration Diarrhea/Loose Stools Metoclopramide HCl 5 mg 03/01/20 13:54 03/07/20 15:07 Reglan IVP 5 mg Q4H PRN Administration Nausea Nifedipine 90 mg 03/08/20 21:00 03/09/20 09:22 Procardia Xl PO 90 mg BID SHO Administration Ondansetron HCl 4 mg 02/28/20 23:19 03/09/20 10:42 Zofran IVP 4 mg Q6H PRN Administration Nausea/Vomiting Pantoprazole Sodium 40 mg 02/29/20 09:00 03/09/20 09:21 Protonix PO 40 mg BID SHO Administration Multivit/Folic Acid/Iron 1 tab 02/29/20 09:00 03/09/20 09:21 Vitamin PO 1 tab DAILY SHO Administration Sodium Chloride 10 ml 02/29/20 09:00 03/09/20 09:24 Flush - Normal Saline IVF 10 ml Q12HR SHO Administration Sodium Chloride 10 ml 02/29/20 00:42 03/02/20 22:48 Flush - Normal Saline IVF 10 ml PRN PRN Administration Saline Flush Vitamin E 200 units 03/02/20 09:00 03/09/20 09:23 Vitamin E PO 200 units DAILY SHO Administration Zinc Sulfate 220 mg 03/02/20 09:00 03/09/20 09:21 Zinc Sulfate PO 220 mg DAILY SHO Administration - Exam General Appearance: NAD, awake alert Eye: PERRL, anicteric sclera ENT: normocephalic atraumatic, no oropharyngeal lesions Neck: supple, no JVD Heart: RRR, no murmur, no gallops, no rubs Respiratory: CTAB, no wheezes, no rales, no ronchi Gastrointestinal: soft, non-tender, non-distended, normal bowel sounds Extremities: no cyanosis, no clubbing, no edema Hosp A/P - Plan Chest Xray 02/27: worsening vascular congestion Renal ultrasound: no hydronephrosis or focal renal lesion. Slight increased echogenicity of the left kidney THis is 64 year old female with COVID who presented with worsening weaakness and SOB on exertion #Acute hypoxic respiratory failure secondary to COVID pneumonia and possible CHF - repeat COVID swab 03/05 positive. - s/p 5 days of dexamethasone -started on IV lasix 40 mg daily for CHF exacerbation. Repeat chest Xray tomorrow. Patient is being weaned down oxygen #Acute Kidney Injury #Hyponatremia #Hyperkalemia - creatinine 4.27, sodium 133, potassium 5.4 - ordered lasix 40 mg IV x 1. Repeat BMP since patient had two bowel movements #Leukocytosis - WBC 14, will repeat CBC tomorrow #Hypertensive urgency - nifedipine increased to 90 mg bid - clonidine increased to 0.2 mg bid 03/05 - continue hydralazine 100 mg tid and labetalol 400 mg bid - added lasix 40 mg IV daily Type II diabetes - continue lantus 30 units qhs Dispo: pending improvement oxygen, blood pressure and creatinine
[2020-03-09 17:59] LABS: Anion Gap 17 mmol/L (10-20); BUN (Urea Nitrogen) 94 mg/dL (9.8-20.1); Calc. Creatinine Clearance 12 mL/min (70-130); Calcium 8.2 mg/dL (7.8-10.44); Carbon Dioxide 18 mmol/L (23-31); Chloride 101 mmol/L (98-107); Estimated GFR-MDRD 13; Glucose 170 mg/dL (80-115); Potassium 5.9 mmol/L (3.5-5.1); Sodium 130 mmol/L (136-145)
[2020-03-09] MEDS: Insulin Glargine 30 UNITS in Pre-Filled Syringe 1 EACH SC SCH (20:52)
[2020-03-10 05:32] LABS: Anion Gap 19 mmol/L (10-20); BUN (Urea Nitrogen) 83 mg/dL (9.8-20.1); Calc. Creatinine Clearance 14 mL/min (70-130); Calcium 8.1 mg/dL (7.8-10.44); Carbon Dioxide 19 mmol/L (23-31); Chloride 100 mmol/L (98-107); Estimated GFR-MDRD 15; Glucose 110 mg/dL (80-115); Potassium 4.6 mmol/L (3.5-5.1); Sodium 133 mmol/L (136-145)
[2020-03-10] MEDS: Labetalol HCl 100 MG/20 ML VIAL SLOW IVP PRN (05:50)
--- NOTE | 2020-03-10 08:32 | EKG ---
Test Reason : Blood Pressure : / mmHG Vent. Rate : 093 BPM Atrial Rate : 093 BPM P-R Int : 148 ms QRS Dur : 068 ms QT Int : 348 ms P-R-T Axes : 043 023 073 degrees QTc Int : 432 ms Normal sinus rhythm Normal ECG Confirmed by DR. Stacy BROWN ([id number]) on 03/10/2020 8:32:04 AM Referred By: ANGELINE Confirmed By:DR. Stacy BROWN
[2020-03-10] MEDS: hydrALAZINE 25 MG TAB PO SCH ×3 (09:32→20:35)
[2020-03-10] MEDS: Leflunomide 10 mg Tablet PO SCH (09:32)
[2020-03-10] MEDS: Ascorbic Acid 500 mg Chewable Tablet PO SCH (09:32)
[2020-03-10] MEDS: NIFEdipine XL 30 MG TAB PO SCH ×2 (09:33→20:35)
[2020-03-10] MEDS: Labetalol 100 MG TAB PO SCH ×2 (09:33→18:35)
[2020-03-10] MEDS: Zinc Sulfate 220 MG CAP PO SCH (09:33)
[2020-03-10] MEDS: Prenatal Vitamin 1 TAB PO SCH (09:33)
[2020-03-10] MEDS: cloNIDine 0.2 MG TAB PO SCH ×2 (09:34→20:35)
[2020-03-10] MEDS: Ferrous Sulfate 325 MG TAB PO SCH ×2 (09:34→16:20)
[2020-03-10] MEDS: Isosorbide Dinitrate 20 MG TAB PO SCH ×3 (09:34→20:35)
[2020-03-10] MEDS: Heparin 5,000 UNITS/ML VIAL SC SCH ×2 (09:34→20:35)
--- NOTE | 2020-03-10 10:40 | RAD ---
EXAM: Single view of the chest HISTORY: Pulmonary edema COMPARISON: 03/08/2020 FINDINGS: Single view of the chest shows a normal sized cardiomediastinal silhouette. There is stable multifocal areas of mixed densities in the lungs. The bones are unremarkable. IMPRESSION: Stable multifocal infiltrates versus pulmonary edema.
[2020-03-10] MEDS ORDERED: Furosemide 20 MG/2 ML VIAL SLOW IVP SCH (11:45)
--- NOTE | 2020-03-10 12:46 | PRG ---
DATE OF SERVICE: 03/10/2020 SUBJECTIVE: Patient was seen and examined at bedside and overnight events noted. Patient denies any shortness of breath or chest pain or palpitation. No history of nausea or vomiting or diarrhea or fever or chills or cramps. OBJECTIVE: GENERAL: This is a well-built female, in no apparent distress. VITAL SIGNS: Temperature . Heart Rate . Respiratory rate 18. Blood pressure 223/107. HEENT: Atraumatic, normocephalic. Oral mucosa is moist. NECK: Supple. CARDIOVASCULAR: S1, S2 heard. Rate and rhythm regular. RESPIRATORY: Clear to auscultation. GASTROINTESTINAL: Abdomen is soft. MUSCULOSKELETAL: No tenderness. No edema. DERMATOLOGIC: No skin rash. NEUROLOGIC: Alert and awake and oriented x3. No focal neurologic deficits. Moving all the extremities. PSYCHIATRIC: Mood and affect normal. LABORATORY DATA: Potassium 4.6, BUN is 83, and creatinine is 3.6. ASSESSMENT AND PLAN: 1. Acute kidney injury on chronic kidney disease stage 4 with slight improvement in renal function. 2. Hyponatremia, limit fluid intake. 3. Acidosis. 4. Hyperkalemia, better. 5. COVID-19 infection. 6. Hypertension. Could consider clonidine patches. 7. Anemia of chronic disease. We will give another dose of Lasix today and then we will monitor. Job ID: [id number]
[2020-03-10] MEDS: Cyclobenzaprine 10 MG TAB PO PRN ×2 (13:31→21:10)
--- NOTE | 2020-03-10 14:30 | PDOC.HOSPP ---
- Subjective Encounter Date: 03/10/20 Encounter Time: 14:28 Subjective: The patient has no new complaints. No chest pain or SOB, just a headache. She is requesting ensure supplementation BP was > 200 systolic. Given IV lasix, repeat BP this afternoon came down to the 140's - Objective Vital Signs & Weight: Vital Signs (12 hours) Temp Pulse Resp BP BP BP BP 03/10/20 13:00 99.2 F 90 20 143/68 H 03/10/20 10:40 147/64 H 119/58 L 183/85 H 03/10/20 08:18 03/10/20 08:00 99.2 F 117 H 18 03/10/20 06:33 102 H 03/10/20 06:10 104 H 03/10/20 06:00 115 H 03/10/20 05:50 116 H 03/10/20 03:45 98.4 F 116 H 22 H BP BP Pulse Ox Pulse Ox 03/10/20 13:00 96 03/10/20 10:40 96 03/10/20 08:18 97 03/10/20 08:00 223/107 H 100 03/10/20 06:33 178/64 H 97 03/10/20 06:10 199/101 H 03/10/20 06:00 224/101 H 03/10/20 05:50 03/10/20 03:45 194/94 H 100 Weight Admit Weight 137 lb 9.6 oz Weight 127 lb 6.4 oz I&O: 03/09/20 03/10/20 03/11/20 06:59 06:59 06:59 Intake Total 400 1260 Output Total 2250 1800 Balance -1850 -540 Result Diagrams: 03/08/20 07:46 03/10/20 04:58 Additional Labs: Accuchecks 03/10/20 03/09/20 03/09/20 06:00 21:07 18:12 POC Glucose 122 H 175 H 180 H Hospitalist ROS - Review of Systems Constitutional: denies: fever, chills - Medication Medications: Active Medications Generic Name Dose Route Start Last Admin Trade Name Freq PRN Reason Stop Dose Admin Acetaminophen 1,000 mg 03/02/20 23:26 03/04/20 09:11 Tylenol PO 1,000 mg Q8H PRN Administration FEVER/PAIN Acetaminophen/Butalbital/Caffeine 1 tab 03/07/20 22:02 03/08/20 17:51 Fioricet PO 03/12/20 22:03 1 tab Q4H PRN Administration Headache Artificial Tears 2 drop 03/01/20 13:54 03/05/20 08:23 Tears Naturale EA EYE 2 drop PRN PRN Administration Dry Eyes Ascorbic Acid 1,000 mg 03/02/20 09:00 03/10/20 09:32 Vitamin C PO 1,000 mg DAILY SHO Administration Calcium Carbonate 1,000 mg 03/01/20 13:54 03/08/20 16:44 Tums PO 1,000 mg Q4H PRN Administration Heartburn or Indigestion Clonidine 0.2 mg 03/05/20 21:00 03/10/20 09:34 Catapres PO 0.2 mg BID SHO Administration Cyclobenzaprine HCl 5 mg 03/03/20 23:13 03/10/20 13:31 Flexeril PO 5 mg TIDPRN PRN Administration Muscle Spasm Diphenhydramine HCl 25 mg 03/01/20 13:54 03/02/20 21:07 Benadryl PO 25 mg Q4H PRN Administration Itching & Hives (mild) Ferrous Sulfate 325 mg 03/02/20 17:00 03/10/20 09:34 Feosol PO 325 mg BID-WM SHO Administration Heparin Sodium (Porcine) 5,000 units 03/08/20 21:00 03/10/20 09:34 Heparin SC 5,000 units BID SHO Administration Hydralazine HCl 100 mg 02/29/20 09:00 03/10/20 09:32 Apresoline PO 100 mg TID SHO Administration Hydralazine HCl 10 mg 03/01/20 13:54 03/01/20 21:30 Apresoline SLOW IVP 10 mg Q4H PRN Administration SBP > 180 and HR < 70 Insulin Glargine 30 units/ 0.3 mls @ 0 mls/hr 02/29/20 21:00 03/09/20 20:52 Miscellaneous Medication SC 0.3 mls HS SHO Administration Insulin Human Lispro 0 units 03/04/20 06:56 03/09/20 18:12 Humalog SC 3 units .AGGRESSIVE SLIDING PRN Administration Aggressive Correctional Scale Insulin Human Lispro 0 units 03/04/20 06:56 03/08/20 20:57 Humalog SC 3 unit .BEDTIME SLIDING SC PRN Administration Bedtime Correctional Scale Isosorbide Dinitrate 20 mg 03/08/20 15:00 03/10/20 09:34 Isordil PO 20 mg TID SHO Administration Labetalol HCl 400 mg 02/29/20 09:00 03/10/20 09:33 Normodyne PO 400 mg BID SHO Administration Labetalol HCl 20 mg 03/10/20 05:07 03/10/20 05:50 Normodyne SLOW IVP 20 mg Q4H PRN Administration SBP > 160 use 2nd Leflunomide 20 mg 02/29/20 09:00 03/10/20 09:32 Arava PO 20 mg DAILY SHO Administration Loperamide HCl 2 mg 03/01/20 13:54 03/02/20 16:19 Imodium PO 2 mg PRN PRN Administration Diarrhea/Loose Stools Metoclopramide HCl 5 mg 03/01/20 13:54 03/07/20 15:07 Reglan IVP 5 mg Q4H PRN Administration Nausea Nifedipine 90 mg 03/08/20 21:00 03/10/20 09:33 Procardia Xl PO 90 mg BID SHO Administration Ondansetron HCl 4 mg 02/28/20 23:19 03/09/20 10:42 Zofran IVP 4 mg Q6H PRN Administration Nausea/Vomiting Pantoprazole Sodium 40 mg 02/29/20 09:00 03/10/20 09:34 Protonix PO 40 mg BID SHO Administration Multivit/Folic Acid/Iron 1 tab 02/29/20 09:00 03/10/20 09:33 Vitamin PO 1 tab DAILY SHO Administration Sodium Chloride 10 ml 02/29/20 09:00 03/10/20 09:34 Flush - Normal Saline IVF 10 ml Q12HR SHO Administration Sodium Chloride 10 ml 02/29/20 00:42 03/02/20 22:48 Flush - Normal Saline IVF 10 ml PRN PRN Administration Saline Flush Vitamin E 200 units 03/02/20 09:00 03/10/20 09:34 Vitamin E PO 200 units DAILY SHO Administration Zinc Sulfate 220 mg 03/02/20 09:00 03/10/20 09:33 Zinc Sulfate PO 220 mg DAILY SHO Administration - Exam General Appearance: NAD, awake alert Eye: PERRL, anicteric sclera ENT: normocephalic atraumatic, no oropharyngeal lesions Neck: supple, no JVD Heart: RRR, no murmur, no gallops, no rubs Respiratory: CTAB, no wheezes, no rales, no ronchi Gastrointestinal: soft, non-tender, non-distended, normal bowel sounds Extremities: no cyanosis, no clubbing, no edema Hosp A/P - Plan Chest Xray 02/27: worsening vascular congestion Renal ultrasound: no hydronephrosis or focal renal lesion. Slight increased echogenicity of the left kidney Chest X ray : multifocal infiltrates vs pulm edema THis is 64 year old female with COVID who presented with worsening weaakness and SOB on exertion #Acute hypoxic respiratory failure secondary to COVID pneumonia and possible CHF - repeat COVID swab 03/05 positive. - s/p 5 days of dexamethasone -started on IV lasix 40 mg daily for pulmonary edema. Reduce to 20 mg IV lasix today #Acute Kidney Injury - improving, creatinine down to 3.69. Given another 20 mg IV lasix today, recheck BMP tomorrow #Hypertensive urgency - BP was 200 this am. Continue nifedipine 90 mg bid, clonidine 0.25 mg bid, hydralazine 100 mg tid, labetalol 400 mg bid - continue IV lasix #Leukocytosis - WBC 14, will repeat CBC, possibly was from steroids Hyperkalemia - resolve Type II diabetes - continue lantus 30 units qhs Dispo: pending improvement oxygen, blood pressure and creatinine
[2020-03-10 15:29] LABS: Hemoglobin 8.6 g/dL (12.0-16.0); Mean Corpuscular Volume 68.7 fL (78.0-98.0); Mean Platelet Volume 8.1 fL (7.4-10.4); Platelet Count 549 thou/uL (130-400); RBC Distribution Width 13.7 % (11.5-14.5); White Blood Cell (WBC) Count 11.7 thou/uL (4.8-10.8)
[2020-03-10] MEDS: Insulin Glargine 30 UNITS in Pre-Filled Syringe 1 EACH SC SCH (20:36)
[2020-03-10] MEDS: Acetaminophen 500 MG TAB PO PRN (21:10)
[2020-03-10] MEDS: Ondansetron PF 4 MG/2 ML Vial IVP PRN (21:11)
[2020-03-11] MEDS: Ondansetron PF 4 MG/2 ML Vial IVP PRN ×2 (03:59→10:56)
[2020-03-11 04:53] LABS: Hemoglobin 8.1 g/dL (12.0-16.0); Mean Corpuscular HGB CONC 33.2 g/dL (32.0-36.0); Mean Corpuscular Hemoglobin 22.6 pg (27.0-31.0); Mean Corpuscular Volume 68.1 fL (78.0-98.0); Mean Platelet Volume 8.4 fL (7.4-10.4); Platelet Count 510 thou/uL (130-400); RBC Distribution Width 13.8 % (11.5-14.5); Red Blood Cell (RBC) Count 3.58 mill/uL (4.20-5.40); White Blood Cell (WBC) Count 11.6 thou/uL (4.8-10.8)
[2020-03-11] MEDS: Labetalol HCl 100 MG/20 ML VIAL SLOW IVP PRN (05:02)
[2020-03-11 05:12] LABS: Anion Gap 15 mmol/L (10-20); BUN (Urea Nitrogen) 77 mg/dL (9.8-20.1); Calc. Creatinine Clearance 14 mL/min (70-130); Calcium 7.5 mg/dL (7.8-10.44); Carbon Dioxide 23 mmol/L (23-31); Chloride 98 mmol/L (98-107); Estimated GFR-MDRD 15; Glucose 63 mg/dL (80-115); Potassium 3.8 mmol/L (3.5-5.1); Sodium 132 mmol/L (136-145)
[2020-03-11] MEDS: hydrALAZINE 25 MG TAB PO SCH ×3 (08:35→20:12)
[2020-03-11] MEDS: Prenatal Vitamin 1 TAB PO SCH (08:35)
[2020-03-11] MEDS: NIFEdipine XL 30 MG TAB PO SCH (08:35)
[2020-03-11] MEDS: Ascorbic Acid 500 mg Chewable Tablet PO SCH (08:36)
[2020-03-11] MEDS: cloNIDine 0.2 MG TAB PO SCH (08:36)
[2020-03-11] MEDS: Isosorbide Dinitrate 20 MG TAB PO SCH ×3 (08:36→20:13)
[2020-03-11] MEDS: Labetalol 100 MG TAB PO SCH ×2 (08:36→20:12)
[2020-03-11] MEDS: Ferrous Sulfate 325 MG TAB PO SCH ×2 (08:37→15:51)
[2020-03-11] MEDS: Heparin 5,000 UNITS/ML VIAL SC SCH ×2 (08:37→20:14)
[2020-03-11] MEDS: Zinc Sulfate 220 MG CAP PO SCH (08:37)
[2020-03-11] MEDS: Leflunomide 10 mg Tablet PO SCH (08:39)
[2020-03-11] MEDS ORDERED: Furosemide 40 MG/4 ML VIAL SLOW IVP SCH (10:00)
[2020-03-11] MEDS ORDERED: Furosemide 20 MG/2 ML VIAL SLOW IVP SCH (10:00)
[2020-03-11] MEDS ORDERED: cloNIDine 0.2 MG TAB PO SCH ×2 (11:08→21:00)
--- NOTE | 2020-03-11 11:27 | PDOC.HOSPP ---
- Subjective Encounter Date: 03/11/20 (f/u COVID pneumonia) Encounter Time: 11:25 Subjective: Pt is on HD 12 - admitted for acute hypoxic respiratory failure, COVID pneumonia , possible CHF. Also has an RAFAELA, hypertension, type 2 DM. Pt this morning c/o feeling nauseous, bp noted to be 89 and 91 systolic over the past hour. Prior to this morning, blood pressure has been uncontrolled and was in the 170's with medications adjusted. She denies abd pain, chest pain or dyspnea - Objective Vital Signs & Weight: Vital Signs (12 hours) Temp Pulse Resp BP BP Pulse Ox 03/11/20 08:46 99 F 113 H 16 174/76 H 98 03/11/20 05:20 177/84 H 03/11/20 05:02 113 H 03/11/20 04:09 99.6 F 113 H 24 H 174/81 H 92 L 03/11/20 00:00 100.5 F H 114 H 28 H 128/60 95 Weight Admit Weight 137 lb 9.6 oz Weight 128 lb 6.4 oz I&O: 03/10/20 03/11/20 03/12/20 06:59 06:59 06:59 Intake Total 1260 1951 Output Total 1800 1650 Balance -540 301 Result Diagrams: 03/11/20 04:29 03/11/20 04:29 Additional Labs: Accuchecks 03/11/20 03/10/20 03/10/20 05:13 20:50 16:46 POC Glucose 69 L 260 H 123 H 03/10/20 13:27 POC Glucose 171 H EKG Reviewed by me: Yes (tele - sinus -100's) Hospitalist ROS - Medication Medications: Active Medications Generic Name Dose Route Start Last Admin Trade Name Freq PRN Reason Stop Dose Admin Acetaminophen 1,000 mg 03/02/20 23:26 03/04/20 09:11 Tylenol PO 1,000 mg Q8H PRN Administration FEVER/PAIN Acetaminophen/Butalbital/Caffeine 1 tab 03/07/20 22:02 03/08/20 17:51 Fioricet PO 03/12/20 22:03 1 tab Q4H PRN Administration Headache Artificial Tears 2 drop 03/01/20 13:54 03/05/20 08:23 Tears Naturale EA EYE 2 drop PRN PRN Administration Dry Eyes Ascorbic Acid 1,000 mg 03/02/20 09:00 03/11/20 08:36 Vitamin C PO 1,000 mg DAILY [facility] Administration Calcium Carbonate 1,000 mg 03/01/20 13:54 03/08/20 16:44 Tums PO 1,000 mg Q4H PRN Administration Heartburn or Indigestion Cyclobenzaprine HCl 5 mg 03/03/20 23:13 03/10/20 21:10 Flexeril PO 5 mg TIDPRN PRN Administration Muscle Spasm Diphenhydramine HCl 25 mg 03/01/20 13:54 03/02/20 21:07 Benadryl PO 25 mg Q4H PRN Administration Itching & Hives (mild) Ferrous Sulfate 325 mg 03/02/20 17:00 03/11/20 08:37 Feosol PO 325 mg BID-WM [facility] Administration Furosemide 40 mg 03/11/20 10:00 03/11/20 10:56 Lasix SLOW IVP 03/13/20 10:01 Not Given 1000 [facility] Heparin Sodium (Porcine) 5,000 units 03/08/20 21:00 03/11/20 08:37 Heparin SC 5,000 units BID [facility] Administration Hydralazine HCl 10 mg 03/01/20 13:54 03/01/20 21:30 Apresoline SLOW IVP 10 mg Q4H PRN Administration SBP > 180 and HR < 70 Insulin Human Lispro 0 units 03/04/20 06:56 03/09/20 18:12 Humalog SC 3 units .AGGRESSIVE SLIDING PRN Administration Aggressive Correctional Scale Insulin Human Lispro 0 units 03/04/20 06:56 03/08/20 20:57 Humalog SC 3 unit .BEDTIME SLIDING SC PRN Administration Bedtime Correctional Scale Isosorbide Dinitrate 20 mg 03/08/20 15:00 03/11/20 08:36 Isordil PO 20 mg TID [facility] Administration Labetalol HCl 20 mg 03/10/20 05:07 03/11/20 05:02 Normodyne SLOW IVP 20 mg Q4H PRN Administration SBP > 160 use 2nd Leflunomide 20 mg 02/29/20 09:00 03/11/20 08:39 Arava PO 20 mg DAILY [facility] Administration Loperamide HCl 2 mg 03/01/20 13:54 03/02/20 16:19 Imodium PO 2 mg PRN PRN Administration Diarrhea/Loose Stools Metoclopramide HCl 5 mg 03/01/20 13:54 03/07/20 15:07 Reglan IVP 5 mg Q4H PRN Administration Nausea Ondansetron HCl 4 mg 02/28/20 23:19 03/11/20 10:56 Zofran IVP 4 mg Q6H PRN Administration Nausea/Vomiting Pantoprazole Sodium 40 mg 02/29/20 09:00 03/11/20 08:37 Protonix PO 40 mg BID SHO Administration Multivit/Folic Acid/Iron 1 tab 02/29/20 09:00 03/11/20 08:35 Vitamin PO 1 tab DAILY SHO Administration Sodium Chloride 10 ml 02/29/20 09:00 03/11/20 08:35 Flush - Normal Saline IVF 10 ml Q12HR SHO Administration Sodium Chloride 10 ml 02/29/20 00:42 03/02/20 22:48 Flush - Normal Saline IVF 10 ml PRN PRN Administration Saline Flush Vitamin E 200 units 03/02/20 09:00 03/11/20 08:39 Vitamin E PO 200 units DAILY SHO Administration Zinc Sulfate 220 mg 03/02/20 09:00 03/11/20 08:37 Zinc Sulfate PO 220 mg DAILY SHO Administration - Exam General Appearance: NAD General - other findings: appears uncomfortable secondary to nausea Heart: RRR, no murmur Respiratory: CTAB, no wheezes, no rales, no ronchi Gastrointestinal: soft, non-tender, non-distended, normal bowel sounds Extremities: no cyanosis, no clubbing, no edema Psychiatric: normal affect Hosp A/P (1) Acute respiratory disease due to 2019 novel coronavirus Code(s): U07.1 - COVID-19; J06.9 - ACUTE UPPER RESPIRATORY INFECTION, UNSPECIFIED Status: Acute (2) COVID-19 Code(s): U07.1 - COVID-19 Status: Acute (3) Acute worsening of stage 3 chronic kidney disease Code(s): N18.3 - CHRONIC KIDNEY DISEASE, STAGE 3 (MODERATE) Status: Acute (4) DM2 (diabetes mellitus, type 2) Status: Chronic Qualifiers: Diabetes mellitus complication status: with kidney complications Diabetes mellitus complication detail: with chronic kidney disease Chronic kidney disease stage: stage 3 (moderate) (5) GERD (gastroesophageal reflux disease) Code(s): K21.9 - GASTRO-ESOPHAGEAL REFLUX DISEASE WITHOUT ESOPHAGITIS Status: Chronic Qualifiers: Esophagitis presence: esophagitis presence not specified Qualified Code(s) : K21.9 - Gastro-esophageal reflux disease without esophagitis (6) Hypertension Code(s): I10 - ESSENTIAL (PRIMARY) HYPERTENSION Status: Chronic Qualifiers: Hypertension type: essential hypertension Qualified Code(s): I10 - Essential (primary) hypertension (7) Hyponatremia Code(s): E87.1 - HYPO-OSMOLALITY AND HYPONATREMIA Status: Chronic - Plan Hypotension - NS 250 ml bolus now due to nausea and significant drop in bp - collaborated with Dr. Messer - parameters placed on all anti-htn meds - hydralazine decreased to 50 mg tid with hold parameters - nifedipine decreased to 90 mg HS with hold parameters - clonidine and labetalol - no change Volume overload - hold IV lasix, pt has not received this today, resume as tolerated Hyponatremia - stable COVID pneumonia - is s/p 5 days dexamethasone RAFAELA with CKD - appreciate Nephrology recommendations - renal diet - lasix ordered - on hold due to hypotension - no acute indication for dialysis DM - hypoglycemia this morning - lantus decreased to 20 units HS (from 30 units HS) DVT prophy - heparin gi prophy - pantoprazole bid - home dose code status full reviewed plan of care with patient, no questions or further needs at end of eval pt remains at high risk in current condition
[2020-03-11] MEDS ORDERED: Sodium Chloride 0.9% 250 ML 250 ML IV SCH (11:30)
--- NOTE | 2020-03-11 13:13 | PRG ---
DATE OF SERVICE: 03/11/2020 SUBJECTIVE: The patient is on COVID isolation. OBJECTIVE: VITAL SIGNS: Temperature 99.0, pulse 139, respiratory rate 18, blood pressure 174/76. LABORATORY DATA: Potassium is 3.8, BUN is 77, creatinine is 3.0. ASSESSMENT AND PLAN: 1. Acute kidney injury, stable. 2. Chronic kidney disease, stage 4. 3. Hyponatremia, stable. 4. Hyperkalemia, better. 5. History of hypertension. The patient had a hypotensive episode this morning. 6. Anemia of chronic disease. 7. COVID-19 infection. Monitor renal function. Not able to have Lasix due to hypotension. Job ID: [id number]
[2020-03-11] MEDS: HumaLOG 300 UNITS/3 ML VIAL SC PRN (16:06)
[2020-03-11] MEDS: NIFEdipine XL 90 MG TAB PO SCH (20:13)
[2020-03-11] MEDS: Cyclobenzaprine 10 MG TAB PO PRN (20:13)
[2020-03-11] MEDS ORDERED: Insulin Glargine 15 UNITS in Pre-Filled Syringe 1 EACH SC SCH (21:00)
[2020-03-11] MEDS ORDERED: Insulin Glargine 20 UNITS in Pre-Filled Syringe 1 EACH SC SCH (21:00)
[2020-03-12 06:00] LABS: Anion Gap 17 mmol/L (10-20); BUN (Urea Nitrogen) 79 mg/dL (9.8-20.1); Calc. Creatinine Clearance 13 mL/min (70-130); Calcium 7.3 mg/dL (7.8-10.44); Carbon Dioxide 20 mmol/L (23-31); Chloride 97 mmol/L (98-107); Estimated GFR-MDRD 13; Glucose 99 mg/dL (80-115); Potassium 4.3 mmol/L (3.5-5.1); Sodium 130 mmol/L (136-145)
[2020-03-12] MEDS ORDERED: cloNIDine 0.2 MG TAB PO SCH (08:47)
[2020-03-12] MEDS ORDERED: cloNIDine 0.1 MG TAB PO SCH (09:00)
[2020-03-12] MEDS: Heparin 5,000 UNITS/ML VIAL SC SCH ×2 (09:05→20:58)
[2020-03-12] MEDS: Leflunomide 10 mg Tablet PO SCH (09:06)
[2020-03-12] MEDS: Prenatal Vitamin 1 TAB PO SCH (09:06)
[2020-03-12] MEDS: Ascorbic Acid 500 mg Chewable Tablet PO SCH (09:06)
[2020-03-12] MEDS: Isosorbide Dinitrate 20 MG TAB PO SCH ×3 (09:07→20:59)
[2020-03-12] MEDS: Zinc Sulfate 220 MG CAP PO SCH (09:07)
[2020-03-12] MEDS: Ferrous Sulfate 325 MG TAB PO SCH ×2 (09:07→18:19)
[2020-03-12] MEDS: Labetalol 100 MG TAB PO SCH ×2 (09:07→21:30)
--- NOTE | 2020-03-12 10:19 | PDOC.HOSPP ---
- Subjective Encounter Date: 03/12/20 (f/u COVID pneumonia) Encounter Time: 10:17 Subjective: Pt reports feeling better today - unable to describe what exactly feels better. She requests a f/u COVID test to know if she still has the virus. She denies any headache,n/v/chest pain or difficulty breathing. - Objective Vital Signs & Weight: Vital Signs (12 hours) Temp Pulse Resp BP BP BP Pulse Ox 03/12/20 09:10 99.1 F 100 24 H 158/75 H 97 03/12/20 09:07 102 H 03/12/20 03:40 99.8 F H 102 H 28 H 124/67 96 03/11/20 22:46 99.5 F 98 25 H 108/57 L 99 Weight Admit Weight 137 lb 9.6 oz Weight 130 lb 12.8 oz I&O: 03/11/20 03/12/20 03/13/20 06:59 06:59 06:59 Intake Total 1951 980 Output Total 1650 550 Balance 301 430 Result Diagrams: 03/11/20 04:29 03/12/20 05:07 Additional Labs: Accuchecks 03/12/20 03/11/20 03/11/20 05:28 20:00 16:02 POC Glucose 111 H 131 H 248 H 03/11/20 11:21 POC Glucose 122 H EKG Reviewed by me: Yes (tele - sinus 100's) Hospitalist ROS - Medication Medications: Active Medications Generic Name Dose Route Start Last Admin Trade Name Freq PRN Reason Stop Dose Admin Acetaminophen 1,000 mg 03/02/20 23:26 03/04/20 09:11 Tylenol PO 1,000 mg Q8H PRN Administration FEVER/PAIN Acetaminophen/Butalbital/Caffeine 1 tab 03/07/20 22:02 03/08/20 17:51 Fioricet PO 03/12/20 22:03 1 tab Q4H PRN Administration Headache Artificial Tears 2 drop 03/01/20 13:54 03/05/20 08:23 Tears Naturale EA EYE 2 drop PRN PRN Administration Dry Eyes Ascorbic Acid 1,000 mg 03/02/20 09:00 03/12/20 09:06 Vitamin C PO 1,000 mg DAILY SHO Administration Calcium Carbonate 1,000 mg 03/01/20 13:54 03/08/20 16:44 Tums PO 1,000 mg Q4H PRN Administration Heartburn or Indigestion Cyclobenzaprine HCl 5 mg 03/03/20 23:13 03/11/20 20:13 Flexeril PO 5 mg TIDPRN PRN Administration Muscle Spasm Diphenhydramine HCl 25 mg 03/01/20 13:54 03/02/20 21:07 Benadryl PO 25 mg Q4H PRN Administration Itching & Hives (mild) Ferrous Sulfate 325 mg 03/02/20 17:00 03/12/20 09:07 Feosol PO 325 mg BID-WM SHO Administration Heparin Sodium (Porcine) 5,000 units 03/08/20 21:00 03/12/20 09:05 Heparin SC 5,000 units BID SHO Administration Hydralazine HCl 10 mg 03/01/20 13:54 03/01/20 21:30 Apresoline SLOW IVP 10 mg Q4H PRN Administration SBP > 180 and HR < 70 Insulin Glargine 15 units/ 0.15 mls @ 0 mls/hr 03/11/20 21:00 03/11/20 20:11 Miscellaneous Medication SC 0.15 mls HS SHO Administration Insulin Human Lispro 0 units 03/04/20 06:56 03/11/20 16:06 Humalog SC 6 units .AGGRESSIVE SLIDING PRN Administration Aggressive Correctional Scale Insulin Human Lispro 0 units 03/04/20 06:56 03/08/20 20:57 Humalog SC 3 unit .BEDTIME SLIDING SC PRN Administration Bedtime Correctional Scale Isosorbide Dinitrate 20 mg 03/08/20 15:00 03/12/20 09:07 Isordil PO 20 mg TID SHO Administration Labetalol HCl 20 mg 03/10/20 05:07 03/11/20 05:02 Normodyne SLOW IVP 20 mg Q4H PRN Administration SBP > 160 use 2nd Labetalol HCl 400 mg 03/11/20 21:00 03/12/20 09:07 Normodyne PO 400 mg BID SHO Administration Leflunomide 20 mg 02/29/20 09:00 03/12/20 09:06 Arava PO 20 mg DAILY SHO Administration Loperamide HCl 2 mg 03/01/20 13:54 03/02/20 16:19 Imodium PO 2 mg PRN PRN Administration Diarrhea/Loose Stools Metoclopramide HCl 5 mg 03/01/20 13:54 03/07/20 15:07 Reglan IVP 5 mg Q4H PRN Administration Nausea Nifedipine 90 mg 03/11/20 21:00 03/11/20 20:13 Procardia Xl PO 90 mg HS SHO Administration Ondansetron HCl 4 mg 02/28/20 23:19 03/11/20 10:56 Zofran IVP 4 mg Q6H PRN Administration Nausea/Vomiting Pantoprazole Sodium 40 mg 02/29/20 09:00 03/12/20 09:07 Protonix PO 40 mg BID SHO Administration Multivit/Folic Acid/Iron 1 tab 02/29/20 09:00 03/12/20 09:06 Vitamin PO 1 tab DAILY SHO Administration Sodium Chloride 10 ml 02/29/20 09:00 03/12/20 09:08 Flush - Normal Saline IVF 10 ml Q12HR SHO Administration Sodium Chloride 10 ml 02/29/20 00:42 03/02/20 22:48 Flush - Normal Saline IVF 10 ml PRN PRN Administration Saline Flush Vitamin E 200 units 03/02/20 09:00 03/11/20 08:39 Vitamin E PO 200 units DAILY SHO Administration Zinc Sulfate 220 mg 03/02/20 09:00 03/12/20 09:07 Zinc Sulfate PO 220 mg DAILY SHO Administration - Exam General Appearance: NAD Heart: RRR, no murmur Respiratory: CTAB, no wheezes, no rales, no ronchi Gastrointestinal: soft, non-tender, non-distended, normal bowel sounds Extremities: no cyanosis, no clubbing, no edema Psychiatric - other findings: affect is blunted, short responses, quiet voice Hosp A/P (1) Acute respiratory disease due to 2019 novel coronavirus Code(s): U07.1 - COVID-19; J06.9 - ACUTE UPPER RESPIRATORY INFECTION, UNSPECIFIED Status: Acute (2) COVID-19 Code(s): U07.1 - COVID-19 Status: Acute (3) Acute worsening of stage 3 chronic kidney disease Code(s): N18.3 - CHRONIC KIDNEY DISEASE, STAGE 3 (MODERATE) Status: Acute (4) DM2 (diabetes mellitus, type 2) Status: Chronic Qualifiers: Diabetes mellitus complication status: with kidney complications Diabetes mellitus complication detail: with chronic kidney disease Chronic kidney disease stage: stage 3 (moderate) (5) GERD (gastroesophageal reflux disease) Code(s): K21.9 - GASTRO-ESOPHAGEAL REFLUX DISEASE WITHOUT ESOPHAGITIS Status: Chronic Qualifiers: Esophagitis presence: esophagitis presence not specified Qualified Code(s) : K21.9 - Gastro-esophageal reflux disease without esophagitis (6) Hypertension Code(s): I10 - ESSENTIAL (PRIMARY) HYPERTENSION Status: Chronic Qualifiers: Hypertension type: essential hypertension Qualified Code(s): I10 - Essential (primary) hypertension (7) Hyponatremia Code(s): E87.1 - HYPO-OSMOLALITY AND HYPONATREMIA Status: Chronic (8) Anemia Code(s): D64.9 - ANEMIA, UNSPECIFIED Status: Chronic Qualifiers: Anemia type: due to chronic kidney disease Chronic kidney disease stage: stage 4 (severe) Qualified Code(s): N18.4 - Chronic kidney disease, stage 4 ( severe); D63.1 - Anemia in chronic kidney disease - Plan Hypotension from yesterday resolved - pt only received a small amount of bolus as the IV infiltrated. - meds lowered -> hydralazine, clonidine. And hold parameters on anti-htn meds. DM - well controlled - will lower lantus further to 7 units to avoid hypoglycemia Volume overload - holding on IV lasix due to hypotension yesterday Hyponatremia - stable COVID pneumonia - is s/p 5 days dexamethasone, repeat test ordered as the patient was admitted 29 February 2020 RAFAELA with CKD - appreciate Nephrology recommendations - renal diet - no acute indication for dialysis Anemia - has been stable, last checked yesterday DVT prophy - heparin gi prophy - pantoprazole bid - home dose code status full reviewed plan of care with patient, no questions or further needs at end of eval pt remains at high risk in current condition
[2020-03-12] MEDS: hydrALAZINE 25 MG TAB PO SCH ×3 (11:25→22:45)
--- NOTE | 2020-03-12 15:56 | PRG ---
DATE OF SERVICE: SUBJECTIVE: The patient is on COVID isolation. OBJECTIVE: VITAL SIGNS: Temperature 98.9, pulse 95, respiratory rate blood pressure 142/74. LABORATORY DATA: Potassium 4.3, BUN is 79, creatinine is 4.1. ASSESSMENT AND PLAN: 1. Acute kidney injury on chronic kidney stage 4 with worsening labs today. No indication for dialysis today. 2. Hyponatremia, limit fluid intake. 3. Hyperkalemia, better. 4. Hypertension. 5. Anemia of chronic disease. 6. COVID-19 infection. 7. Cannot have Lasix due to hypotension. Blood pressure is slightly better today. Continue to monitor. No acute indication for dialysis today. Job ID: [id number]
[2020-03-12] MEDS: Insulin Glargine 7 UNITS in Pre-Filled Syringe 1 EACH SC SCH (20:59)
[2020-03-12] MEDS: NIFEdipine XL 90 MG TAB PO SCH (21:29)
[2020-03-12] MEDS: Acetaminophen 500 MG TAB PO PRN (21:33)
[2020-03-12] MEDS: cloNIDine 0.1 MG TAB PO SCH (22:37)
[2020-03-13 04:57] LABS: Anion Gap 17 mmol/L (10-20); BUN (Urea Nitrogen) 73 mg/dL (9.8-20.1); Calc. Creatinine Clearance 14 mL/min (70-130); Calcium 7.3 mg/dL (7.8-10.44); Carbon Dioxide 20 mmol/L (23-31); Chloride 101 mmol/L (98-107); Estimated GFR-MDRD 14; Glucose 106 mg/dL (80-115); Potassium 4.1 mmol/L (3.5-5.1); Sodium 134 mmol/L (136-145)
[2020-03-13] MEDS: Ferrous Sulfate 325 MG TAB PO SCH ×2 (08:39→16:32)
[2020-03-13] MEDS: Heparin 5,000 UNITS/ML VIAL SC SCH ×2 (08:39→21:13)
[2020-03-13] MEDS: cloNIDine 0.1 MG TAB PO SCH ×2 (08:39→21:40)
[2020-03-13] MEDS: Prenatal Vitamin 1 TAB PO SCH (08:39)
[2020-03-13] MEDS: Leflunomide 10 mg Tablet PO SCH (08:40)
[2020-03-13] MEDS: Ascorbic Acid 500 mg Chewable Tablet PO SCH (08:40)
[2020-03-13] MEDS: Isosorbide Dinitrate 20 MG TAB PO SCH ×3 (08:40→21:16)
[2020-03-13] MEDS: Labetalol 100 MG TAB PO SCH ×2 (08:40→21:41)
[2020-03-13] MEDS: hydrALAZINE 25 MG TAB PO SCH ×3 (08:41→21:41)
[2020-03-13] MEDS: Zinc Sulfate 220 MG CAP PO SCH (08:42)
--- NOTE | 2020-03-13 13:55 | PRG ---
DATE OF SERVICE: 03/13/2020 SUBJECTIVE: A 64-year-old female, being seen for acute kidney injury. The patient denied any nausea, vomiting, or chest pain. OBJECTIVE: General: The patient is awake and alert. Vital Signs: Afebrile, pulse 75, breathing at 16, blood pressure 167/77. HEENT: Head normocephalic and atraumatic. Eyes intact, no ulcers. Nose intact, no ulcers. Ears intact, no ulcers. Neck: Supple. No JVD. Chest: Symmetrical and clear. Cardiovascular: Shows S1 and S2, no rub, no murmur. Gastrointestinal: Abdomen is soft, bowel sounds positive. Extremities: Show no edema or ulcers. Skin: Shows no rash or petechiae. Musculoskeletal: Shows no joint swelling or stiffness. Genitourinary: Shows no Hodges or CVA tenderness. Neurologic: Motor intact. Cranial nerves intact. LABORATORY DATA: Reviewed. ASSESSMENT AND PLAN: 1. Chronic kidney disease stage 5 with acute kidney injury, improving. 2. Hypertension, stable. 3. Anemia, stable. 4. No indication for dialysis. Job ID: [id number]
[2020-03-13] MEDS: HumaLOG 300 UNITS/3 ML VIAL SC PRN ×2 (16:32→18:43)
--- NOTE | 2020-03-13 17:35 | PDOC.HOSPP ---
- Subjective Encounter Date: 03/13/20 (f/u COVID pneumonia) Encounter Time: 17:33 Subjective: Pt without complaints, states she feels better. She denies any significant weakness and states she feels strong enough to go home when ready. Her is in the ER and she reports he may go to rehab. - Objective Vital Signs & Weight: Vital Signs (12 hours) Temp Pulse Resp BP BP BP Pulse Ox 03/13/20 13:12 96 22 H 92 L 03/13/20 11:48 99 F 130/61 92 L 03/13/20 11:25 130/61 03/13/20 08:55 98.2 F 95 21 H 167/77 H 97 Pulse Ox Pulse Ox 03/13/20 13:12 03/13/20 11:48 03/13/20 11:25 91 L 92 L 03/13/20 08:55 Weight Admit Weight 137 lb 9.6 oz Weight 132 lb 6.4 oz I&O: 03/12/20 03/13/20 03/14/20 06:59 06:59 06:59 Intake Total 980 1250 118 Output Total 550 1250 Balance 430 0 118 Result Diagrams: 03/11/20 04:29 03/13/20 04:19 Additional Labs: Accuchecks 03/13/20 03/13/20 03/13/20 13:30 13:30 13:30 POC Glucose 193 H 193 H 193 H 03/12/20 21:21 POC Glucose 246 H EKG Reviewed by me: Yes (tele - sinus 80-110;s) Hospitalist ROS - Medication Medications: Active Medications Generic Name Dose Route Start Last Admin Trade Name Freq PRN Reason Stop Dose Admin Acetaminophen 1,000 mg 03/02/20 23:26 03/12/20 21:33 Tylenol PO 1,000 mg Q8H PRN Administration FEVER/PAIN Artificial Tears 2 drop 03/01/20 13:54 03/05/20 08:23 Tears Naturale EA EYE 2 drop PRN PRN Administration Dry Eyes Ascorbic Acid 1,000 mg 03/02/20 09:00 03/13/20 08:40 Vitamin C PO 1,000 mg DAILY SHO Administration Calcium Carbonate 1,000 mg 03/01/20 13:54 03/08/20 16:44 Tums PO 1,000 mg Q4H PRN Administration Heartburn or Indigestion Clonidine 0.1 mg 03/12/20 10:16 03/13/20 08:39 Catapres PO 0.1 mg BID SHO Administration Cyclobenzaprine HCl 5 mg 03/03/20 23:13 03/11/20 20:13 Flexeril PO 5 mg TIDPRN PRN Administration Muscle Spasm Diphenhydramine HCl 25 mg 03/01/20 13:54 03/02/20 21:07 Benadryl PO 25 mg Q4H PRN Administration Itching & Hives (mild) Ferrous Sulfate 325 mg 03/02/20 17:00 03/13/20 16:32 Feosol PO 325 mg BID-WM SHO Administration Heparin Sodium (Porcine) 5,000 units 03/08/20 21:00 03/13/20 08:39 Heparin SC 5,000 units BID SHO Administration Hydralazine HCl 10 mg 03/01/20 13:54 03/01/20 21:30 Apresoline SLOW IVP 10 mg Q4H PRN Administration SBP > 180 and HR < 70 Hydralazine HCl 25 mg 03/12/20 09:00 03/13/20 16:32 Apresoline PO 25 mg TID SHO Administration Insulin Glargine 7 units/ 0.07 mls @ 0 mls/hr 03/12/20 21:00 03/12/20 20:59 Miscellaneous Medication SC 0.07 mls HS SHO Administration Insulin Human Lispro 0 units 03/04/20 06:56 03/13/20 16:32 Humalog SC 3 units .AGGRESSIVE SLIDING PRN Administration Aggressive Correctional Scale Insulin Human Lispro 0 units 03/04/20 06:56 03/08/20 20:57 Humalog SC 3 unit .BEDTIME SLIDING SC PRN Administration Bedtime Correctional Scale Isosorbide Dinitrate 20 mg 03/08/20 15:00 03/13/20 16:32 Isordil PO 20 mg TID SHO Administration Labetalol HCl 20 mg 03/10/20 05:07 03/11/20 05:02 Normodyne SLOW IVP 20 mg Q4H PRN Administration SBP > 160 use 2nd Labetalol HCl 400 mg 03/11/20 21:00 03/13/20 08:40 Normodyne PO 400 mg BID SHO Administration Leflunomide 20 mg 02/29/20 09:00 03/13/20 08:40 Arava PO 20 mg DAILY SHO Administration Loperamide HCl 2 mg 03/01/20 13:54 03/02/20 16:19 Imodium PO 2 mg PRN PRN Administration Diarrhea/Loose Stools Metoclopramide HCl 5 mg 03/01/20 13:54 03/07/20 15:07 Reglan IVP 5 mg Q4H PRN Administration Nausea Nifedipine 90 mg 03/11/20 21:00 03/12/20 21:29 Procardia Xl PO 90 mg HS SHO Administration Ondansetron HCl 4 mg 02/28/20 23:19 03/11/20 10:56 Zofran IVP 4 mg Q6H PRN Administration Nausea/Vomiting Pantoprazole Sodium 40 mg 02/29/20 09:00 03/13/20 08:39 Protonix PO 40 mg BID SHO Administration Multivit/Folic Acid/Iron 1 tab 02/29/20 09:00 03/13/20 08:39 Vitamin PO 1 tab DAILY SHO Administration Sodium Chloride 10 ml 02/29/20 09:00 03/13/20 08:43 Flush - Normal Saline IVF 10 ml Q12HR SHO Administration Sodium Chloride 10 ml 02/29/20 00:42 03/02/20 22:48 Flush - Normal Saline IVF 10 ml PRN PRN Administration Saline Flush Vitamin E 200 units 03/02/20 09:00 03/13/20 08:40 Vitamin E PO 200 units DAILY SHO Administration Zinc Sulfate 220 mg 03/02/20 09:00 03/13/20 08:42 Zinc Sulfate PO 220 mg DAILY SHO Administration - Exam General Appearance: NAD Heart: RRR, no murmur Respiratory - other findings: Decreased breath sounds at bases, no audible w/r/r Gastrointestinal: soft, non-tender, non-distended, normal bowel sounds Psychiatric - other findings: blunted affect - unchanged, pt answers questions appropriately Hosp A/P (1) Acute respiratory disease due to 2019 novel coronavirus Code(s): U07.1 - COVID-19; J06.9 - ACUTE UPPER RESPIRATORY INFECTION, UNSPECIFIED Status: Acute (2) COVID-19 Code(s): U07.1 - COVID-19 Status: Acute (3) Acute worsening of stage 3 chronic kidney disease Code(s): N18.3 - CHRONIC KIDNEY DISEASE, STAGE 3 (MODERATE) Status: Acute (4) DM2 (diabetes mellitus, type 2) Status: Chronic Qualifiers: Diabetes mellitus complication status: with kidney complications Diabetes mellitus complication detail: with chronic kidney disease Chronic kidney disease stage: stage 3 (moderate) (5) GERD (gastroesophageal reflux disease) Code(s): K21.9 - GASTRO-ESOPHAGEAL REFLUX DISEASE WITHOUT ESOPHAGITIS Status: Chronic Qualifiers: Esophagitis presence: esophagitis presence not specified Qualified Code(s) : K21.9 - Gastro-esophageal reflux disease without esophagitis (6) Hypertension Code(s): I10 - ESSENTIAL (PRIMARY) HYPERTENSION Status: Chronic Qualifiers: Hypertension type: essential hypertension Qualified Code(s): I10 - Essential (primary) hypertension (7) Hyponatremia Code(s): E87.1 - HYPO-OSMOLALITY AND HYPONATREMIA Status: Chronic (8) Anemia Code(s): D64.9 - ANEMIA, UNSPECIFIED Status: Chronic Qualifiers: Anemia type: due to chronic kidney disease Chronic kidney disease stage: stage 4 (severe) Qualified Code(s): N18.4 - Chronic kidney disease, stage 4 ( severe); D63.1 - Anemia in chronic kidney disease - Plan Blood pressures better controlled - continue current meds DM - blood sugars controlled, continue lower dose of lantus Hyponatremia - stable COVID pneumonia - is s/p 5 days dexamethasone, repeat test ordered 03.12 pending - as the patient was admitted 29 February 2020 RAFAELA with CKD - appreciate Nephrology recommendations - renal diet - no acute indication for dialysis - will inquire with Dr. Ortiz what our goals are for renal function for discharge planning Anemia - stable DVT prophy - heparin gi prophy - pantoprazole bid - home dose code status full reviewed plan of care with patient, no questions or further needs at end of eval pt remains at high risk in current condition
[2020-03-13] MEDS: NIFEdipine XL 90 MG TAB PO SCH (21:40)
[2020-03-13] MEDS: Insulin Glargine 7 UNITS in Pre-Filled Syringe 1 EACH SC SCH (21:44)
[2020-03-13] MEDS: Fioricet 325/50/40 mg Tablet PO PRN (21:49)
[2020-03-14] MEDS: Acetaminophen 500 MG TAB PO PRN ×2 (03:18→21:58)
[2020-03-14] MEDS: Labetalol HCl 100 MG/20 ML VIAL SLOW IVP PRN (03:35)
[2020-03-14] MEDS: HumaLOG 300 UNITS/3 ML VIAL SC PRN ×2 (06:36→16:51)
[2020-03-14] MEDS: Leflunomide 10 mg Tablet PO SCH (09:41)
[2020-03-14] MEDS: Zinc Sulfate 220 MG CAP PO SCH (09:42)
[2020-03-14] MEDS: Isosorbide Dinitrate 20 MG TAB PO SCH ×3 (09:42→19:57)
[2020-03-14] MEDS: Ascorbic Acid 500 mg Chewable Tablet PO SCH (09:42)
[2020-03-14] MEDS: Prenatal Vitamin 1 TAB PO SCH (09:42)
[2020-03-14] MEDS: Ferrous Sulfate 325 MG TAB PO SCH ×2 (09:42→16:29)
[2020-03-14] MEDS: cloNIDine 0.1 MG TAB PO SCH (09:43)
[2020-03-14] MEDS: Labetalol 100 MG TAB PO SCH ×2 (09:43→19:57)
[2020-03-14] MEDS: Heparin 5,000 UNITS/ML VIAL SC SCH ×2 (09:43→19:56)
[2020-03-14] MEDS: hydrALAZINE 25 MG TAB PO SCH ×3 (09:43→19:56)
[2020-03-14 12:16] LABS: SARS-CoV-2 MS2 Positive; SARS-CoV-2 N Gene Positive; SARS-CoV-2 S Gene Positive; SARS-CoV-2 orf1ab Positive
[2020-03-14 12:32] LABS: #Basophils 0.1 thou/uL (0.0-0.2); #Eosinphils 0.1 thou/uL (0.0-0.7); #Lymphocytes 0.9 thou/uL (1.20-3.40); #Monocytes 0.8 thou/uL (0.11-0.59); #Neutrophils 5.8 thou/uL (1.40-6.50); %Basophils 0.9 % (0.0-1.0); %Eosinophils 1.5 % (0.0-10.0); %Lymphocytes 11.5 % (21.0-51.0); %Monocytes 10.5 % (0.0-10.0); %Neutrophils 75.6 % (42.0-75.0); Hemoglobin 7.6 g/dL (12.0-16.0); Mean Corpuscular HGB CONC 31.6 g/dL (32.0-36.0); Mean Corpuscular Hemoglobin 22.2 pg (27.0-31.0); Mean Corpuscular Volume 70.4 fL (78.0-98.0); Mean Platelet Volume 7.6 fL (7.4-10.4); Platelet Count 450 thou/uL (130-400); White Blood Cell (WBC) Count 7.7 thou/uL (4.8-10.8)
[2020-03-14 12:54] LABS: Anion Gap 16 mmol/L (10-20); BUN (Urea Nitrogen) 54 mg/dL (9.8-20.1); Calc. Creatinine Clearance 18 mL/min (70-130); Calcium 7.6 mg/dL (7.8-10.44); Carbon Dioxide 19 mmol/L (23-31); Chloride 104 mmol/L (98-107); Estimated GFR-MDRD 19; Glucose 137 mg/dL (80-115); Potassium 4.6 mmol/L (3.5-5.1); Sodium 134 mmol/L (136-145)
--- NOTE | 2020-03-14 13:43 | PRG ---
DATE OF SERVICE: 03/14/2020 SUBJECTIVE: A 64-year-old female, being seen for acute kidney injury. The patient denies any nausea, vomiting, or chest pain. OBJECTIVE: GENERAL: The patient is awake and alert. VITAL SIGNS: Afebrile, pulse 76, breathing at 16, blood pressure 166/72. HEENT: Head normocephalic and atraumatic. Eyes intact, no ulcers. Nose intact, no ulcers. Ears intact, no ulcers. NECK: Supple. No JVD. CHEST: Symmetrical and clear. CARDIOVASCULAR: Shows S1 and S2, no rub, no murmur. GASTROINTESTINAL: Abdomen is soft, bowel sounds positive. EXTREMITIES: Show no edema or ulcers. SKIN: Shows no rash or petechiae. MUSCULOSKELETAL: Shows no joint swelling or stiffness. GENITOURINARY: Shows no Hodges or CVA tenderness. NEUROLOGIC: Motor intact. Cranial nerves intact. LABORATORY DATA: Show hemoglobin 7.6. Creatinine 3.02. ASSESSMENT AND RECOMMENDATIONS: 1. Acute kidney injury with chronic kidney disease, improved. 2. Hypertension, stable. 3. Anemia, stable. 4. Medication based on GFR, appropriate. For hypertension, I would titrate home medication. Job ID: [id number]
--- NOTE | 2020-03-14 16:55 | PDOC.HOSPP ---
- Subjective Encounter Date: 03/14/20 (f/u COVID) Encounter Time: 16:53 Subjective: Pt without complaints. She is quiet in her responses and expresses frustration about positive COVID test recently. She was admitted for COVID pneumonia, acute resp failure, and worsening renal function. - Objective Vital Signs & Weight: Vital Signs (12 hours) Temp Pulse Resp BP BP BP BP 03/14/20 12:55 97.4 F L 108 H 16 163/74 H 03/14/20 09:41 03/14/20 09:40 97.0 F L 106 H 18 166/72 H 03/14/20 09:02 191/87 H 03/14/20 05:30 99.8 F H 101 H 169/78 H Pulse Ox 03/14/20 12:55 96 03/14/20 09:41 95 03/14/20 09:40 95 03/14/20 09:02 03/14/20 05:30 Weight Admit Weight 137 lb 9.6 oz Weight 134 lb 14.4 oz I&O: 03/13/20 03/14/20 03/15/20 06:59 06:59 06:59 Intake Total 1250 598 240 Output Total 1250 1075 800 Balance 0 -477 -560 Result Diagrams: 03/14/20 12:18 03/14/20 12:18 Additional Labs: Accuchecks 03/14/20 03/13/20 03/13/20 05:32 21:31 18:44 POC Glucose 240 H 157 H 197 H EKG Reviewed by me: Yes (tele - sinus 100-120's) Hospitalist ROS - Medication Medications: Active Medications Generic Name Dose Route Start Last Admin Trade Name Freq PRN Reason Stop Dose Admin Acetaminophen 1,000 mg 03/02/20 23:26 03/14/20 03:18 Tylenol PO 1,000 mg Q8H PRN Administration FEVER/PAIN Acetaminophen/Butalbital/Caffeine 1 tab 03/13/20 03:13 03/13/20 21:49 Fioricet PO 03/18/20 03:14 1 tab Q4H PRN Administration Headache Artificial Tears 2 drop 03/01/20 13:54 03/05/20 08:23 Tears Naturale EA EYE 2 drop PRN PRN Administration Dry Eyes Ascorbic Acid 1,000 mg 03/02/20 09:00 03/14/20 09:42 Vitamin C PO 1,000 mg DAILY SHO Administration Calcium Carbonate 1,000 mg 03/01/20 13:54 03/08/20 16:44 Tums PO 1,000 mg Q4H PRN Administration Heartburn or Indigestion Clonidine 0.1 mg 03/12/20 10:16 03/14/20 09:43 Catapres PO 0.1 mg BID SHO Administration Cyclobenzaprine HCl 5 mg 03/03/20 23:13 03/11/20 20:13 Flexeril PO 5 mg TIDPRN PRN Administration Muscle Spasm Diphenhydramine HCl 25 mg 03/01/20 13:54 03/02/20 21:07 Benadryl PO 25 mg Q4H PRN Administration Itching & Hives (mild) Ferrous Sulfate 325 mg 03/02/20 17:00 03/14/20 09:42 Feosol PO 325 mg BID-WM SHO Administration Heparin Sodium (Porcine) 5,000 units 03/08/20 21:00 03/14/20 09:43 Heparin SC 5,000 units BID SHO Administration Hydralazine HCl 10 mg 03/01/20 13:54 03/01/20 21:30 Apresoline SLOW IVP 10 mg Q4H PRN Administration SBP > 180 and HR < 70 Hydralazine HCl 25 mg 03/12/20 09:00 03/14/20 09:43 Apresoline PO 25 mg TID SHO Administration Insulin Glargine 7 units/ 0.07 mls @ 0 mls/hr 03/12/20 21:00 03/13/20 21:44 Miscellaneous Medication SC 0.07 mls HS SHO Administration Insulin Human Lispro 0 units 03/04/20 06:56 03/14/20 06:36 Humalog SC 6 units .AGGRESSIVE SLIDING PRN Administration Aggressive Correctional Scale Insulin Human Lispro 0 units 03/04/20 06:56 03/08/20 20:57 Humalog SC 3 unit .BEDTIME SLIDING SC PRN Administration Bedtime Correctional Scale Isosorbide Dinitrate 20 mg 03/08/20 15:00 03/14/20 09:42 Isordil PO 20 mg TID SHO Administration Labetalol HCl 20 mg 03/10/20 05:07 03/14/20 03:35 Normodyne SLOW IVP 20 mg Q4H PRN Administration SBP > 160 use 2nd Labetalol HCl 400 mg 03/11/20 21:00 03/14/20 09:43 Normodyne PO 400 mg BID SHO Administration Leflunomide 20 mg 02/29/20 09:00 03/14/20 09:41 Arava PO 20 mg DAILY SHO Administration Loperamide HCl 2 mg 03/01/20 13:54 03/02/20 16:19 Imodium PO 2 mg PRN PRN Administration Diarrhea/Loose Stools Metoclopramide HCl 5 mg 03/01/20 13:54 03/07/20 15:07 Reglan IVP 5 mg Q4H PRN Administration Nausea Nifedipine 90 mg 03/11/20 21:00 03/13/20 21:40 Procardia Xl PO 90 mg HS SHO Administration Ondansetron HCl 4 mg 02/28/20 23:19 03/11/20 10:56 Zofran IVP 4 mg Q6H PRN Administration Nausea/Vomiting Pantoprazole Sodium 40 mg 02/29/20 09:00 03/14/20 09:42 Protonix PO 40 mg BID SHO Administration Multivit/Folic Acid/Iron 1 tab 02/29/20 09:00 03/14/20 09:42 Vitamin PO 1 tab DAILY SHO Administration Sodium Chloride 10 ml 02/29/20 09:00 03/14/20 09:42 Flush - Normal Saline IVF 10 ml Q12HR SHO Administration Sodium Chloride 10 ml 02/29/20 00:42 03/02/20 22:48 Flush - Normal Saline IVF 10 ml PRN PRN Administration Saline Flush Vitamin E 200 units 03/02/20 09:00 03/14/20 09:42 Vitamin E PO 200 units DAILY SHO Administration Zinc Sulfate 220 mg 03/02/20 09:00 03/14/20 09:42 Zinc Sulfate PO 220 mg DAILY SHO Administration - Exam General Appearance: NAD Heart: RRR, no murmur Respiratory: no wheezes, no rales, no ronchi Respiratory - other findings: decreased breath sounds at the bases bilateral Gastrointestinal: soft, non-tender, non-distended, normal bowel sounds Extremities: no cyanosis, no clubbing, no edema Psychiatric - other findings: affect remains blunted Hosp A/P (1) Acute respiratory disease due to 2019 novel coronavirus Code(s): U07.1 - COVID-19; J06.9 - ACUTE UPPER RESPIRATORY INFECTION, UNSPECIFIED Status: Acute (2) COVID-19 Code(s): U07.1 - COVID-19 Status: Acute (3) Acute worsening of stage 3 chronic kidney disease Code(s): N18.3 - CHRONIC KIDNEY DISEASE, STAGE 3 (MODERATE) Status: Acute (4) DM2 (diabetes mellitus, type 2) Status: Chronic Qualifiers: Diabetes mellitus complication status: with kidney complications Diabetes mellitus complication detail: with chronic kidney disease Chronic kidney disease stage: stage 3 (moderate) (5) GERD (gastroesophageal reflux disease) Code(s): K21.9 - GASTRO-ESOPHAGEAL REFLUX DISEASE WITHOUT ESOPHAGITIS Status: Chronic Qualifiers: Esophagitis presence: esophagitis presence not specified Qualified Code(s) : K21.9 - Gastro-esophageal reflux disease without esophagitis (6) Hypertension Code(s): I10 - ESSENTIAL (PRIMARY) HYPERTENSION Status: Chronic Qualifiers: Hypertension type: essential hypertension Qualified Code(s): I10 - Essential (primary) hypertension (7) Hyponatremia Code(s): E87.1 - HYPO-OSMOLALITY AND HYPONATREMIA Status: Chronic (8) Anemia Code(s): D64.9 - ANEMIA, UNSPECIFIED Status: Chronic Qualifiers: Anemia type: due to chronic kidney disease Chronic kidney disease stage: stage 4 (severe) Qualified Code(s): N18.4 - Chronic kidney disease, stage 4 ( severe); D63.1 - Anemia in chronic kidney disease - Plan Blood pressures higher over past 24 hours - will continue titrating medications - this time up. Increase hydralazine to 50 mg TID (from 25 mg TID) and clonidine to 0.2 mg BID (from 0.1 mg BID) DM - blood sugars controlled, continue current dose of lantus Hyponatremia - stable COVID pneumonia - is s/p 5 days dexamethasone, repeat test on 03/12 - positive RAFAELA with CKD - improved today - appreciate Nephrology recommendations Anemia - stable DVT prophy - heparin gi prophy - pantoprazole bid - home dose code status full reviewed plan of care with patient, no questions or further needs at end of eval pt remains at high risk in current condition Anticipate home with home health when cleared by nephrology - possibly in the next few days.
[2020-03-14] MEDS: NIFEdipine XL 90 MG TAB PO SCH (19:56)
[2020-03-14] MEDS: cloNIDine 0.2 MG TAB PO SCH (19:56)
[2020-03-14] MEDS: Insulin Glargine 7 UNITS in Pre-Filled Syringe 1 EACH SC SCH (19:57)
[2020-03-15] MEDS: Acetaminophen 500 MG TAB PO PRN ×2 (00:07→17:47)
[2020-03-15 05:14] LABS: #Basophils 0.1 thou/uL (0.0-0.2); #Eosinphils 0.1 thou/uL (0.0-0.7); #Lymphocytes 1.9 thou/uL (1.20-3.40); #Neutrophils 7.1 thou/uL (1.40-6.50); %Basophils 0.8 % (0.0-1.0); %Eosinophils 1.2 % (0.0-10.0); %Lymphocytes 18.7 % (21.0-51.0); %Monocytes 9.7 % (0.0-10.0); %Neutrophils 69.6 % (42.0-75.0); Mean Corpuscular HGB CONC 31.8 g/dL (32.0-36.0); Mean Corpuscular Hemoglobin 22.2 pg (27.0-31.0); Mean Corpuscular Volume 69.8 fL (78.0-98.0); Mean Platelet Volume 7.9 fL (7.4-10.4); Platelet Count 406 thou/uL (130-400); RBC Distribution Width 14.2 % (11.5-14.5); Red Blood Cell (RBC) Count 3.16 mill/uL (4.20-5.40); White Blood Cell (WBC) Count 10.2 thou/uL (4.8-10.8)
[2020-03-15 05:31] LABS: Anion Gap 14 mmol/L (10-20); BUN (Urea Nitrogen) 49 mg/dL (9.8-20.1); Calc. Creatinine Clearance 18 mL/min (70-130); Calcium 7.5 mg/dL (7.8-10.44); Carbon Dioxide 21 mmol/L (23-31); Chloride 104 mmol/L (98-107); Estimated GFR-MDRD 19; Glucose 130 mg/dL (80-115); Potassium 4.8 mmol/L (3.5-5.1); Sodium 134 mmol/L (136-145)
[2020-03-15] MEDS: Ascorbic Acid 500 mg Chewable Tablet PO SCH (07:22)
[2020-03-15] MEDS: cloNIDine 0.2 MG TAB PO SCH (07:22)
[2020-03-15] MEDS: Ferrous Sulfate 325 MG TAB PO SCH ×2 (07:22→17:08)
[2020-03-15] MEDS: Heparin 5,000 UNITS/ML VIAL SC SCH ×2 (07:23→20:57)
[2020-03-15] MEDS: hydrALAZINE 25 MG TAB PO SCH ×3 (07:24→20:57)
[2020-03-15] MEDS: Labetalol 100 MG TAB PO SCH ×2 (07:24→18:41)
[2020-03-15] MEDS: Isosorbide Dinitrate 20 MG TAB PO SCH ×3 (07:24→20:57)
[2020-03-15] MEDS: Leflunomide 10 mg Tablet PO SCH (07:25)
[2020-03-15] MEDS: Prenatal Vitamin 1 TAB PO SCH (07:26)
[2020-03-15] MEDS: Zinc Sulfate 220 MG CAP PO SCH (07:26)
[2020-03-15] MEDS: Ondansetron PF 4 MG/2 ML Vial IVP PRN (09:17)
--- NOTE | 2020-03-15 10:31 | PRG ---
DATE OF SERVICE: 03/15/2020 SUBJECTIVE: 64-year-old female being seen for acute kidney injury. The patient denied nausea, vomiting, or chest pain. OBJECTIVE: General: The patient is awake and alert. Vital Signs: Afebrile, pulse 98, breathing at 16, blood pressure 141/71. HEENT: Head normocephalic and atraumatic. Eyes intact, no ulcers. Nose intact, no ulcers. Ears intact, no ulcers. Neck: Supple. No JVD. Chest: Symmetrical and clear. Cardiovascular: Shows S1 and S2, no rub, no murmur. Gastrointestinal: Abdomen is soft, bowel sounds positive. Extremities: Show no edema or ulcers. Skin: Shows no rash or petechiae. Musculoskeletal: Shows no joint swelling or stiffness. Genitourinary: Shows no Hodges or CVA tenderness. Neurologic: Motor intact. Cranial nerves intact. LABORATORY DATA: Hemoglobin 7, potassium 4.8. ASSESSMENT: 1. Chronic kidney disease stage 4 stable, acute kidney injury, improving. 2. Anemia, would recommend transfusion. 3. Medication based on GFR appropriate. I would start the patient on 20,000 units of Epogen subcu. Job ID: [id number]
--- NOTE | 2020-03-15 13:54 | PDOC.HOSPP ---
- Subjective Encounter Date: 03/15/20 (f/u RAFAELA with CKD) Encounter Time: 13:51 - Objective Vital Signs & Weight: Vital Signs (12 hours) Temp Pulse Resp BP BP BP Pulse Ox 03/15/20 11:48 98.7 F 97 20 140/69 99 03/15/20 09:08 98 141/71 H 03/15/20 08:04 98.4 F 103 H 18 183/89 H 97 03/15/20 07:24 95 03/15/20 04:00 98.9 F 95 14 160/72 H 100 Weight Admit Weight 137 lb 9.6 oz Weight 134 lb 14.4 oz I&O: 03/14/20 03/15/20 03/16/20 06:59 06:59 06:59 Intake Total 598 927 120 Output Total 1075 1300 300 Balance -477 -373 -180 Result Diagrams: 03/15/20 04:58 03/15/20 04:58 Additional Labs: Accuchecks 03/15/20 03/15/20 03/14/20 11:37 05:05 20:09 POC Glucose 176 H 151 H 223 H 03/14/20 03/14/20 16:40 12:57 POC Glucose 200 H 147 H EKG Reviewed by me: Yes (tele - sinus 90-120's, episode of complete heart block x 30 sec w/vomiting) Hospitalist ROS - Medication Medications: Active Medications Generic Name Dose Route Start Last Admin Trade Name Freq PRN Reason Stop Dose Admin Acetaminophen 1,000 mg 03/02/20 23:26 03/15/20 00:07 Tylenol PO 1,000 mg Q8H PRN Administration FEVER/PAIN Acetaminophen/Butalbital/Caffeine 1 tab 03/13/20 03:13 03/13/20 21:49 Fioricet PO 03/18/20 03:14 1 tab Q4H PRN Administration Headache Artificial Tears 2 drop 03/01/20 13:54 03/05/20 08:23 Tears Naturale EA EYE 2 drop PRN PRN Administration Dry Eyes Ascorbic Acid 1,000 mg 03/02/20 09:00 03/15/20 07:22 Vitamin C PO 1,000 mg DAILY SHO Administration Calcium Carbonate 1,000 mg 03/01/20 13:54 03/08/20 16:44 Tums PO 1,000 mg Q4H PRN Administration Heartburn or Indigestion Cyclobenzaprine HCl 5 mg 03/03/20 23:13 03/11/20 20:13 Flexeril PO 5 mg TIDPRN PRN Administration Muscle Spasm Diphenhydramine HCl 25 mg 03/01/20 13:54 03/02/20 21:07 Benadryl PO 25 mg Q4H PRN Administration Itching & Hives (mild) Ferrous Sulfate 325 mg 03/02/20 17:00 03/15/20 07:22 Feosol PO 325 mg BID-WM SHO Administration Heparin Sodium (Porcine) 5,000 units 03/08/20 21:00 03/15/20 07:23 Heparin SC 5,000 units BID SHO Administration Hydralazine HCl 10 mg 03/01/20 13:54 03/01/20 21:30 Apresoline SLOW IVP 10 mg Q4H PRN Administration SBP > 180 and HR < 70 Insulin Glargine 7 units/ 0.07 mls @ 0 mls/hr 03/12/20 21:00 03/14/20 19:57 Miscellaneous Medication SC 0.07 mls HS SHO Administration Insulin Human Lispro 0 units 03/04/20 06:56 03/14/20 16:51 Humalog SC 3 units .AGGRESSIVE SLIDING PRN Administration Aggressive Correctional Scale Insulin Human Lispro 0 units 03/04/20 06:56 03/08/20 20:57 Humalog SC 3 unit .BEDTIME SLIDING SC PRN Administration Bedtime Correctional Scale Isosorbide Dinitrate 20 mg 03/08/20 15:00 03/15/20 07:24 Isordil PO 20 mg TID SHO Administration Labetalol HCl 20 mg 03/10/20 05:07 03/14/20 03:35 Normodyne SLOW IVP 20 mg Q4H PRN Administration SBP > 160 use 2nd Labetalol HCl 400 mg 03/11/20 21:00 03/15/20 07:24 Normodyne PO 400 mg BID SHO Administration Leflunomide 20 mg 02/29/20 09:00 03/15/20 07:25 Arava PO 20 mg DAILY SHO Administration Loperamide HCl 2 mg 03/01/20 13:54 03/02/20 16:19 Imodium PO 2 mg PRN PRN Administration Diarrhea/Loose Stools Metoclopramide HCl 5 mg 03/01/20 13:54 03/07/20 15:07 Reglan IVP 5 mg Q4H PRN Administration Nausea Nifedipine 90 mg 03/11/20 21:00 03/14/20 19:56 Procardia Xl PO 90 mg HS SHO Administration Ondansetron HCl 4 mg 02/28/20 23:19 03/15/20 09:17 Zofran IVP 4 mg Q6H PRN Administration Nausea/Vomiting Pantoprazole Sodium 40 mg 02/29/20 09:00 03/15/20 07:26 Protonix PO 40 mg BID SHO Administration Multivit/Folic Acid/Iron 1 tab 02/29/20 09:00 03/15/20 07:26 Vitamin PO 1 tab DAILY SHO Administration Sodium Chloride 10 ml 02/29/20 09:00 03/15/20 07:26 Flush - Normal Saline IVF 10 ml Q12HR SHO Administration Sodium Chloride 10 ml 02/29/20 00:42 03/02/20 22:48 Flush - Normal Saline IVF 10 ml PRN PRN Administration Saline Flush Vitamin E 200 units 03/02/20 09:00 03/15/20 07:26 Vitamin E PO 200 units DAILY SHO Administration Zinc Sulfate 220 mg 03/02/20 09:00 03/15/20 07:26 Zinc Sulfate PO 220 mg DAILY SHO Administration - Exam General Appearance: NAD Heart: RRR, no murmur Respiratory: CTAB, no wheezes, no rales, no ronchi Gastrointestinal: soft, non-tender, non-distended, normal bowel sounds Extremities: no cyanosis, no clubbing, no edema Psychiatric: normal affect Psychiatric - other findings: unchanged - blunted Hosp A/P (1) Acute respiratory disease due to 2019 novel coronavirus Code(s): U07.1 - COVID-19; J06.9 - ACUTE UPPER RESPIRATORY INFECTION, UNSPECIFIED Status: Acute (2) COVID-19 Code(s): U07.1 - COVID-19 Status: Acute (3) Acute worsening of stage 3 chronic kidney disease Code(s): N18.3 - CHRONIC KIDNEY DISEASE, STAGE 3 (MODERATE) Status: Acute (4) DM2 (diabetes mellitus, type 2) Status: Chronic Qualifiers: Diabetes mellitus complication status: with kidney complications Diabetes mellitus complication detail: with chronic kidney disease Chronic kidney disease stage: stage 3 (moderate) (5) GERD (gastroesophageal reflux disease) Code(s): K21.9 - GASTRO-ESOPHAGEAL REFLUX DISEASE WITHOUT ESOPHAGITIS Status: Chronic Qualifiers: Esophagitis presence: esophagitis presence not specified Qualified Code(s) : K21.9 - Gastro-esophageal reflux disease without esophagitis (6) Hypertension Code(s): I10 - ESSENTIAL (PRIMARY) HYPERTENSION Status: Chronic Qualifiers: Hypertension type: essential hypertension Qualified Code(s): I10 - Essential (primary) hypertension (7) Hyponatremia Code(s): E87.1 - HYPO-OSMOLALITY AND HYPONATREMIA Status: Chronic (8) Anemia Code(s): D64.9 - ANEMIA, UNSPECIFIED Status: Chronic Qualifiers: Anemia type: due to chronic kidney disease Chronic kidney disease stage: stage 4 (severe) Qualified Code(s): N18.4 - Chronic kidney disease, stage 4 ( severe); D63.1 - Anemia in chronic kidney disease - Plan Complete heart block with vomiting - continue tele monitoring - d/c clonidine - continue labetalol as baseline heart rates are up to 110's-120's - Cardiology aware Anemia - worsening - epogen per Nephrology - transfuse 1 unit prbc - pt verbally consents after discussion of risks/benefits, obtain written consent Hyponatremia - stable Hypertension - d/c clonidine for reasons above, increase hydralazine. - continue labetalol, procardia, isosorbide COVID pneumonia - is s/p 5 days dexamethasone, repeat test on 03/12 - positive DM - blood sugars increasing -increase to 10 units lantus at night RAFAELA with CKD - stable DVT prophy - heparin gi prophy - pantoprazole bid - home dose code status full reviewed plan of care with patient, no questions or further needs at end of eval pt remains at high risk in current condition Anticipate home with home health when cleared by nephrology - again possibly within a few days.
[2020-03-15] MEDS: HumaLOG 300 UNITS/3 ML VIAL SC PRN (17:47)
[2020-03-15] MEDS: Insulin Glargine 10 UNITS in Pre-Filled Syringe 1 EACH SC SCH (20:56)
[2020-03-15] MEDS: NIFEdipine XL 90 MG TAB PO SCH (20:57)
[2020-03-15] MEDS: Fioricet 325/50/40 mg Tablet PO PRN (21:25)
[2020-03-16 05:17] LABS: #Basophils 0.1 thou/uL (0.0-0.2); #Eosinphils 0.1 thou/uL (0.0-0.7); #Lymphocytes 1.6 thou/uL (1.20-3.40); #Neutrophils 7.5 thou/uL (1.40-6.50); %Basophils 0.8 % (0.0-1.0); %Eosinophils 0.5 % (0.0-10.0); %Lymphocytes 15.6 % (21.0-51.0); Hemoglobin 8.8 g/dL (12.0-16.0); Mean Corpuscular HGB CONC 31.9 g/dL (32.0-36.0); Mean Corpuscular Hemoglobin 23.5 pg (27.0-31.0); Mean Corpuscular Volume 73.5 fL (78.0-98.0); Mean Platelet Volume 8.1 fL (7.4-10.4); Platelet Count 383 thou/uL (130-400); RBC Distribution Width 16.4 % (11.5-14.5); Red Blood Cell (RBC) Count 3.75 mill/uL (4.20-5.40); White Blood Cell (WBC) Count 10.3 thou/uL (4.8-10.8)
[2020-03-16 05:43] LABS: Anion Gap 15 mmol/L (10-20); BUN (Urea Nitrogen) 40 mg/dL (9.8-20.1); Calc. Creatinine Clearance 21 mL/min (70-130); Calcium 7.7 mg/dL (7.8-10.44); Carbon Dioxide 19 mmol/L (23-31); Chloride 105 mmol/L (98-107); Estimated GFR-MDRD 22; Glucose 162 mg/dL (80-115); Potassium 4.6 mmol/L (3.5-5.1); Sodium 134 mmol/L (136-145)
[2020-03-16] MEDS: HumaLOG 300 UNITS/3 ML VIAL SC PRN ×2 (06:09→15:27)
--- NOTE | 2020-03-16 08:13 | PDOC.HOSPP ---
- Subjective Encounter Date: 03/16/20 Encounter Time: 10:50 Subjective: Patient with nausea and vomited after taking her medications this morning. Still nauseated now. Didn't eat any breakfast. Nurse getting her some Zofran now. Her heart rate dropped to 40s just now for a few seconds per tele monitor but now back up to tachycardic. - Objective Vital Signs & Weight: Vital Signs (12 hours) Temp Pulse Resp BP BP Pulse Ox 03/16/20 04:20 98.8 F 114 H 20 167/80 H 100 03/16/20 01:54 117 H 156/75 H 03/16/20 00:09 98.8 F 120 H 22 H 172/78 H 100 03/15/20 21:08 99.5 F 116 H 18 196/88 H 99 Weight Admit Weight 137 lb 9.6 oz Weight 134 lb 14.4 oz I&O: 03/15/20 03/16/20 03/17/20 06:59 06:59 06:59 Intake Total 927 1800 Output Total 1300 700 Balance -373 1100 Result Diagrams: 03/16/20 05:05 03/16/20 05:05 Additional Labs: Accuchecks 03/16/20 03/15/20 03/15/20 06:08 21:08 17:17 POC Glucose 161 H 164 H 193 H 03/15/20 11:37 POC Glucose 176 H Hospitalist ROS - Review of Systems Constitutional: denies: fever, chills Respiratory: denies: cough, shortness of breath Cardiovascular: denies: chest pain, palpitations Gastrointestinal: reports: nausea, vomiting. denies: abdominal pain, diarrhea, constipation Genitourinary: denies: dysuria - Medication Medications: Active Medications Generic Name Dose Route Start Last Admin Trade Name Freq PRN Reason Stop Dose Admin Acetaminophen 1,000 mg 03/02/20 23:26 03/15/20 17:47 Tylenol PO 1,000 mg Q8H PRN Administration FEVER/PAIN Acetaminophen/Butalbital/Caffeine 1 tab 03/13/20 03:13 03/15/20 21:25 Fioricet PO 03/18/20 03:14 1 tab Q4H PRN Administration Headache Artificial Tears 2 drop 03/01/20 13:54 03/05/20 08:23 Tears Naturale EA EYE 2 drop PRN PRN Administration Dry Eyes Ascorbic Acid 1,000 mg 03/02/20 09:00 03/15/20 07:22 Vitamin C PO 1,000 mg DAILY SHO Administration Calcium Carbonate 1,000 mg 03/01/20 13:54 03/08/20 16:44 Tums PO 1,000 mg Q4H PRN Administration Heartburn or Indigestion Cyclobenzaprine HCl 5 mg 03/03/20 23:13 03/11/20 20:13 Flexeril PO 5 mg TIDPRN PRN Administration Muscle Spasm Diphenhydramine HCl 25 mg 03/01/20 13:54 03/02/20 21:07 Benadryl PO 25 mg Q4H PRN Administration Itching & Hives (mild) Ferrous Sulfate 325 mg 03/02/20 17:00 03/15/20 17:08 Feosol PO 325 mg BID-WM SHO Administration Heparin Sodium (Porcine) 5,000 units 03/08/20 21:00 03/15/20 20:57 Heparin SC 5,000 units BID SHO Administration Hydralazine HCl 10 mg 03/01/20 13:54 03/01/20 21:30 Apresoline SLOW IVP 10 mg Q4H PRN Administration SBP > 180 and HR < 70 Hydralazine HCl 100 mg 03/15/20 15:00 03/15/20 20:57 Apresoline PO 100 mg TID SHO Administration Insulin Glargine 10 units/ 0.1 mls @ 0 mls/hr 03/15/20 21:00 03/15/20 20:56 Miscellaneous Medication SC 0.1 mls HS SHO Administration Insulin Human Lispro 0 units 03/04/20 06:56 03/16/20 06:09 Humalog SC 3 units .AGGRESSIVE SLIDING PRN Administration Aggressive Correctional Scale Insulin Human Lispro 0 units 03/04/20 06:56 03/08/20 20:57 Humalog SC 3 unit .BEDTIME SLIDING SC PRN Administration Bedtime Correctional Scale Isosorbide Dinitrate 20 mg 03/08/20 15:00 03/15/20 20:57 Isordil PO 20 mg TID SHO Administration Labetalol HCl 20 mg 03/10/20 05:07 03/14/20 03:35 Normodyne SLOW IVP 20 mg Q4H PRN Administration SBP > 160 use 2nd Labetalol HCl 400 mg 03/11/20 21:00 03/15/20 18:41 Normodyne PO 400 mg BID SHO Administration Leflunomide 20 mg 02/29/20 09:00 03/15/20 07:25 Arava PO 20 mg DAILY SOH Administration Loperamide HCl 2 mg 03/01/20 13:54 03/02/20 16:19 Imodium PO 2 mg PRN PRN Administration Diarrhea/Loose Stools Metoclopramide HCl 5 mg 03/01/20 13:54 03/07/20 15:07 Reglan IVP 5 mg Q4H PRN Administration Nausea Nifedipine 90 mg 03/11/20 21:00 03/15/20 20:57 Procardia Xl PO 90 mg HS SHO Administration Ondansetron HCl 4 mg 02/28/20 23:19 03/15/20 09:17 Zofran IVP 4 mg Q6H PRN Administration Nausea/Vomiting Pantoprazole Sodium 40 mg 02/29/20 09:00 03/15/20 20:57 Protonix PO 40 mg BID SHO Administration Multivit/Folic Acid/Iron 1 tab 02/29/20 09:00 03/15/20 07:26 Vitamin PO 1 tab DAILY SHO Administration Sodium Chloride 10 ml 02/29/20 09:00 03/15/20 20:58 Flush - Normal Saline IVF 10 ml Q12HR SHO Administration Sodium Chloride 10 ml 02/29/20 00:42 03/02/20 22:48 Flush - Normal Saline IVF 10 ml PRN PRN Administration Saline Flush Vitamin E 200 units 03/02/20 09:00 03/15/20 07:26 Vitamin E PO 200 units DAILY SHO Administration Zinc Sulfate 220 mg 03/02/20 09:00 03/15/20 07:26 Zinc Sulfate PO 220 mg DAILY SHO Administration - Exam General Appearance: NAD, awake alert ENT: moist mucosa Heart: no murmur, no gallops, no rubs Heart - other findings: tachycardic Respiratory: CTAB, no wheezes, no rales, no ronchi Gastrointestinal: soft, non-tender, non-distended, normal bowel sounds Psychiatric: normal affect, normal behavior, A&O x 3 Hosp A/P (1) Pneumonia due to COVID-19 virus Code(s): U07.1 - COVID-19; J12.89 - OTHER VIRAL PNEUMONIA Status: Acute (2) Acute worsening of stage 4 chronic kidney disease Code(s): N18.4 - CHRONIC KIDNEY DISEASE, STAGE 4 (SEVERE) Status: Acute (3) DM2 (diabetes mellitus, type 2) Status: Chronic Qualifiers: Diabetes mellitus complication status: with kidney complications Diabetes mellitus complication detail: with chronic kidney disease Chronic kidney disease stage: stage 3 (moderate) (4) GERD (gastroesophageal reflux disease) Code(s): K21.9 - GASTRO-ESOPHAGEAL REFLUX DISEASE WITHOUT ESOPHAGITIS Status: Chronic Qualifiers: Esophagitis presence: esophagitis presence not specified Qualified Code(s) : K21.9 - Gastro-esophageal reflux disease without esophagitis (5) Hypertension Code(s): I10 - ESSENTIAL (PRIMARY) HYPERTENSION Status: Chronic Qualifiers: Hypertension type: essential hypertension Qualified Code(s): I10 - Essential (primary) hypertension (6) Hyponatremia Code(s): E87.1 - HYPO-OSMOLALITY AND HYPONATREMIA Status: Chronic - Plan Complete heart block with vomiting - continue tele monitoring - d/c'd clonidine - continue labetalol as baseline heart rates are up to 110's-120's - Cardiology aware Anemia - epogen per Nephrology - transfused 1 unit prbc and now in 8s Hyponatremia - stable Hypertension - d/c clonidine for reasons above, increase hydralazine. - continue labetalol, procardia, isosorbide COVID pneumonia - is s/p 10 days dexamethasone, repeat test on 03/12 - positive DM - blood sugars improved with increased dose of Lantus 10units at night RAFAELA with CKD - stable DVT prophy - heparin gi prophy - pantoprazole bid - home dose code status full reviewed plan of care with patient, no questions or further needs at end of eval pt remains at high risk in current condition Anticipate home with home health when cleared by nephrology and cardiology - again possibly within a few days.
[2020-03-16] MEDS: Zinc Sulfate 220 MG CAP PO SCH (08:56)
[2020-03-16] MEDS: Ferrous Sulfate 325 MG TAB PO SCH ×2 (08:56→15:18)
[2020-03-16] MEDS: Isosorbide Dinitrate 20 MG TAB PO SCH ×3 (08:56→19:57)
[2020-03-16] MEDS: Prenatal Vitamin 1 TAB PO SCH (08:56)
[2020-03-16] MEDS: Ascorbic Acid 500 mg Chewable Tablet PO SCH (08:56)
[2020-03-16] MEDS: Leflunomide 10 mg Tablet PO SCH (08:58)
[2020-03-16] MEDS: Heparin 5,000 UNITS/ML VIAL SC SCH ×2 (08:58→19:54)
[2020-03-16] MEDS: Labetalol 100 MG TAB PO SCH ×2 (08:59→19:55)
[2020-03-16] MEDS: hydrALAZINE 25 MG TAB PO SCH ×3 (08:59→19:57)
--- NOTE | 2020-03-16 10:53 | PRG ---
DATE OF SERVICE: 03/16/2020 SUBJECTIVE: A 64-year-old lady being seen for acute kidney injury. The patient denies any nausea, vomiting, or chest pain. OBJECTIVE: GENERAL: On exam, the patient is awake and alert. VITAL SIGNS: Afebrile, pulse 75, breathing 16, and blood pressure 156/75. HEENT: Head normocephalic and atraumatic. Eyes intact, no ulcers. Nose intact, no ulcers. Ears intact, no ulcers. NECK: Supple. No JVD. CHEST: Symmetrical and clear. CARDIOVASCULAR: Shows S1 and S2, no rub, no murmur. GASTROINTESTINAL: Abdomen is soft, bowel sounds positive. EXTREMITIES: Show no edema or ulcers. SKIN: Shows no rash or petechiae. MUSCULOSKELETAL: Shows no joint swelling or stiffness. GENITOURINARY: Shows no Hodges or CVA tenderness. NEUROLOGIC: Motor intact. Cranial nerves intact. LABORATORY DATA: Reviewed. ASSESSMENT AND PLAN: 1. Acute kidney injury, improved. 2. Chronic kidney disease, stage 4, stable. 3. Hypertension. Titrate home blood pressure medication. 4. No indication for dialysis. Job ID: [id number]
[2020-03-16] MEDS: Ondansetron PF 4 MG/2 ML Vial IVP PRN ×2 (10:56→20:19)
[2020-03-16 13:05] VITALS: BMI 25.4
[2020-03-16] MEDS: Labetalol HCl 100 MG/20 ML VIAL SLOW IVP PRN ×2 (15:26→22:38)
[2020-03-16] MEDS: NIFEdipine XL 90 MG TAB PO SCH (19:55)
[2020-03-16] MEDS: Cyclobenzaprine 10 MG TAB PO PRN (19:55)
[2020-03-16] MEDS: Tamsulosin HCl 0.4 MG CAP PO SCH (19:57)
[2020-03-16] MEDS: Insulin Glargine 10 UNITS in Pre-Filled Syringe 1 EACH SC SCH (19:58)
[2020-03-17] MEDS: Leflunomide 10 mg Tablet PO SCH (09:21)
[2020-03-17] MEDS: Prenatal Vitamin 1 TAB PO SCH (09:22)
[2020-03-17] MEDS: Ascorbic Acid 500 mg Chewable Tablet PO SCH (09:22)
[2020-03-17] MEDS: hydrALAZINE 25 MG TAB PO SCH ×3 (09:22→20:29)
[2020-03-17] MEDS: Isosorbide Dinitrate 20 MG TAB PO SCH ×3 (09:22→20:30)
[2020-03-17] MEDS: Ferrous Sulfate 325 MG TAB PO SCH ×2 (09:22→16:17)
[2020-03-17] MEDS: Zinc Sulfate 220 MG CAP PO SCH (09:23)
[2020-03-17] MEDS: Heparin 5,000 UNITS/ML VIAL SC SCH ×2 (09:23→20:30)
[2020-03-17] MEDS: Labetalol 100 MG TAB PO SCH ×2 (09:23→20:29)
[2020-03-17] MEDS: Ondansetron PF 4 MG/2 ML Vial IVP PRN (09:24)
[2020-03-17 10:31] LABS: Anion Gap 16 mmol/L (10-20); BUN (Urea Nitrogen) 30 mg/dL (9.8-20.1); Calc. Creatinine Clearance 21 mL/min (70-130); Calcium 8.5 mg/dL (7.8-10.44); Carbon Dioxide 18 mmol/L (23-31); Chloride 107 mmol/L (98-107); Estimated GFR-MDRD 23; Glucose 146 mg/dL (80-115); Potassium 5.2 mmol/L (3.5-5.1); Sodium 136 mmol/L (136-145)
--- NOTE | 2020-03-17 11:41 | PRG ---
DATE OF SERVICE: 03/17/2020 SUBJECTIVE: A 64-year-old female, being seen for acute kidney injury. The patient denied any nausea, vomiting, or chest pain. PHYSICAL EXAMINATION: GENERAL: The patient is awake and alert. VITAL SIGNS: Afebrile, pulse 75, breathing at 16, blood pressure 153/74. HEENT: Head normocephalic and atraumatic. Eyes intact, no ulcers. Nose intact, no ulcers. Ears intact, no ulcers. NECK: Supple. No JVD. CHEST: Symmetrical and clear. CARDIOVASCULAR: Shows S1 and S2, no rub, no murmur. GASTROINTESTINAL: Abdomen is soft, bowel sounds positive. EXTREMITIES: Show no edema or ulcers. SKIN: Shows no rash or petechiae. MUSCULOSKELETAL: Shows no joint swelling or stiffness. GENITOURINARY: Shows no Hodges or CVA tenderness. NEUROLOGIC: Motor intact. Cranial nerves intact. LABORATORY DATA: Hemoglobin 8.8. Creatinine 2.5. ASSESSMENT AND PLAN: 1. Acute kidney injury, improved. 2. Anemia, stable. 3. I would recommend starting sodium bicarbonate and rechecking potassium. 4. Metabolic acidosis, start sodium bicarbonate. 5. Hypertension, titrate home medication and low-salt diet. Job ID: [id number]
[2020-03-17] MEDS: Labetalol HCl 100 MG/20 ML VIAL SLOW IVP PRN ×2 (12:33→17:57)
[2020-03-17] MEDS: HumaLOG 300 UNITS/3 ML VIAL SC PRN (12:40)
--- NOTE | 2020-03-17 12:51 | PDOC.HOSPP ---
- Subjective Encounter Date: 03/17/20 Subjective: Patient seen and examined bedside this morning resting in bed no acute distress reporting feeling overall better cough and shortness of breath improving but still complain of some nausea no chest pain no significant overnight events blood pressure with a little improvement since yesterday - Objective Vital Signs & Weight: Vital Signs (12 hours) Temp Pulse Pulse Resp BP BP BP 03/17/20 12:33 110 H 171/79 H 03/17/20 10:12 115 H 179/92 H 03/17/20 09:20 99.0 F 110 H 18 200/100 H 03/17/20 09:00 03/17/20 04:37 99.3 F 111 H 18 153/74 H Pulse Ox 03/17/20 12:33 03/17/20 10:12 03/17/20 09:20 95 03/17/20 09:00 95 03/17/20 04:37 99 Weight Admit Weight 137 lb 9.6 oz Weight 134 lb 14.4 oz I&O: 03/16/20 03/17/20 03/18/20 06:59 06:59 06:59 Intake Total 1800 1250 Output Total 700 Balance 1100 1250 Result Diagrams: 03/16/20 05:05 03/17/20 10:06 Additional Labs: Accuchecks 03/17/20 03/16/20 03/16/20 04:40 20:08 15:26 POC Glucose 140 H 172 H 192 H Hospitalist ROS - Medication Medications: Active Medications Generic Name Dose Route Start Last Admin Trade Name Freq PRN Reason Stop Dose Admin Acetaminophen 1,000 mg 03/02/20 23:26 03/15/20 17:47 Tylenol PO 1,000 mg Q8H PRN Administration FEVER/PAIN Acetaminophen/Butalbital/Caffeine 1 tab 03/13/20 03:13 03/15/20 21:25 Fioricet PO 03/18/20 03:14 1 tab Q4H PRN Administration Headache Artificial Tears 2 drop 03/01/20 13:54 03/05/20 08:23 Tears Naturale EA EYE 2 drop PRN PRN Administration Dry Eyes Ascorbic Acid 1,000 mg 03/02/20 09:00 03/17/20 09:22 Vitamin C PO 1,000 mg DAILY SHO Administration Calcium Carbonate 1,000 mg 03/01/20 13:54 03/08/20 16:44 Tums PO 1,000 mg Q4H PRN Administration Heartburn or Indigestion Cyclobenzaprine HCl 5 mg 03/03/20 23:13 03/16/20 19:55 Flexeril PO 5 mg TIDPRN PRN Administration Muscle Spasm Diphenhydramine HCl 25 mg 03/01/20 13:54 03/02/20 21:07 Benadryl PO 25 mg Q4H PRN Administration Itching & Hives (mild) Ferrous Sulfate 325 mg 03/02/20 17:00 03/17/20 09:22 Feosol PO 325 mg BID-WM SHO Administration Heparin Sodium (Porcine) 5,000 units 03/08/20 21:00 03/17/20 09:23 Heparin SC 5,000 units BID SHO Administration Hydralazine HCl 10 mg 03/01/20 13:54 03/01/20 21:30 Apresoline SLOW IVP 10 mg Q4H PRN Administration SBP > 180 and HR < 70 Hydralazine HCl 100 mg 03/15/20 15:00 03/17/20 09:22 Apresoline PO 100 mg TID SHO Administration Insulin Glargine 10 units/ 0.1 mls @ 0 mls/hr 03/15/20 21:00 03/16/20 19:58 Miscellaneous Medication SC 0.1 mls HS SHO Administration Insulin Human Lispro 0 units 03/04/20 06:56 03/17/20 12:40 Humalog SC 6 units .AGGRESSIVE SLIDING PRN Administration Aggressive Correctional Scale Insulin Human Lispro 0 units 03/04/20 06:56 03/08/20 20:57 Humalog SC 3 unit .BEDTIME SLIDING SC PRN Administration Bedtime Correctional Scale Isosorbide Dinitrate 20 mg 03/08/20 15:00 03/17/20 09:22 Isordil PO 20 mg TID SHO Administration Labetalol HCl 20 mg 03/10/20 05:07 03/17/20 12:33 Normodyne SLOW IVP 20 mg Q4H PRN Administration SBP > 160 use 2nd Labetalol HCl 400 mg 03/11/20 21:00 03/17/20 09:23 Normodyne PO 400 mg BID SHO Administration Leflunomide 20 mg 02/29/20 09:00 03/17/20 09:21 Arava PO 20 mg DAILY SHO Administration Loperamide HCl 2 mg 03/01/20 13:54 03/02/20 16:19 Imodium PO 2 mg PRN PRN Administration Diarrhea/Loose Stools Metoclopramide HCl 5 mg 03/01/20 13:54 03/07/20 15:07 Reglan IVP 5 mg Q4H PRN Administration Nausea Nifedipine 90 mg 03/11/20 21:00 03/16/20 19:55 Procardia Xl PO 90 mg HS SHO Administration Ondansetron HCl 4 mg 02/28/20 23:19 03/17/20 09:24 Zofran IVP 4 mg Q6H PRN Administration Nausea/Vomiting Pantoprazole Sodium 40 mg 02/29/20 09:00 03/17/20 09:22 Protonix PO 40 mg BID SHO Administration Multivit/Folic Acid/Iron 1 tab 02/29/20 09:00 03/17/20 09:22 Vitamin PO 1 tab DAILY SHO Administration Sodium Chloride 10 ml 02/29/20 09:00 03/17/20 09:23 Flush - Normal Saline IVF 10 ml Q12HR SHO Administration Sodium Chloride 10 ml 02/29/20 00:42 03/02/20 22:48 Flush - Normal Saline IVF 10 ml PRN PRN Administration Saline Flush Tamsulosin HCl 0.4 mg 03/16/20 21:00 03/16/20 19:57 Flomax PO 0.4 mg HS SHO Administration Vitamin E 200 units 03/02/20 09:00 03/17/20 09:21 Vitamin E PO 200 units DAILY SHO Administration Zinc Sulfate 220 mg 03/02/20 09:00 03/17/20 09:23 Zinc Sulfate PO 220 mg DAILY SHO Administration - Exam General Appearance: NAD, awake alert Eye: PERRL, anicteric sclera ENT: normocephalic atraumatic Neck: supple, symmetric Heart: RRR, no murmur Respiratory: CTAB, no wheezes Gastrointestinal: soft Extremities: no cyanosis Hosp A/P (1) Acute worsening of stage 4 chronic kidney disease Code(s): N18.4 - CHRONIC KIDNEY DISEASE, STAGE 4 (SEVERE) Status: Acute (2) COVID-19 Code(s): U07.1 - COVID-19 Status: Acute (3) Pneumonia due to COVID-19 virus Code(s): U07.1 - COVID-19; J12.89 - OTHER VIRAL PNEUMONIA Status: Acute (4) AV block, 2nd degree Code(s): I44.1 - ATRIOVENTRICULAR BLOCK, SECOND DEGREE Status: Resolved (5) Acute worsening of stage 3 chronic kidney disease Code(s): N18.3 - CHRONIC KIDNEY DISEASE, STAGE 3 (MODERATE) Status: Acute (6) DM2 (diabetes mellitus, type 2) Status: Chronic Qualifiers: Diabetes mellitus complication status: with kidney complications Diabetes mellitus complication detail: with chronic kidney disease Chronic kidney disease stage: stage 3 (moderate) (7) Hypertension Code(s): I10 - ESSENTIAL (PRIMARY) HYPERTENSION Status: Chronic Qualifiers: Hypertension type: essential hypertension Qualified Code(s): I10 - Essential (primary) hypertension (8) Hypertensive urgency Code(s): I16.0 - HYPERTENSIVE URGENCY Status: Resolved - Plan Complete heart block with vomiting - continue tele monitoring - d/c'd clonidine - continue labetalol as baseline heart rates are up to 110's-120's - Cardiology aware Anemia - epogen per Nephrology - transfused 1 unit prbc and now in 8s Hyponatremia - stable Hypertensive urgency- d/c clonidine for reasons above, increase hydralazine.100 tid - continue labetalol 400 mg twice daily, procardia, isosorbide 20 mg 3 times daily -Hydralazine IV as needed continue to adjust medication for better control COVID pneumonia - is s/p 10 days dexamethasone, repeat test on 03/12 - positive DM - blood sugars improved with increased dose of Lantus 10units at night RAFAELA with CKD - stable and improving today creatinine 2.5 DVT prophy - heparin gi prophy - pantoprazole bid - home dose code status full pt remains at high risk in current condition Anticipate home with home health when cleared by nephrology and cardiology - again possibly within a few days.
[2020-03-17 14:19] LABS: Potassium 4.6 mmol/L (3.5-5.1)
[2020-03-17] MEDS: Sodium Bicarbonate Tab 325 MG TAB PO SCH ×2 (16:17→20:30)
[2020-03-17] MEDS: Insulin Glargine 10 UNITS in Pre-Filled Syringe 1 EACH SC SCH (20:28)
[2020-03-17] MEDS: Tamsulosin HCl 0.4 MG CAP PO SCH (20:29)
[2020-03-17] MEDS: NIFEdipine XL 90 MG TAB PO SCH (20:30)
[2020-03-18] MEDS: HumaLOG 300 UNITS/3 ML VIAL SC PRN (06:23)
[2020-03-18] MEDS: hydrALAZINE 25 MG TAB PO SCH ×3 (08:42→20:55)
[2020-03-18] MEDS: Labetalol 100 MG TAB PO SCH ×2 (08:42→20:55)
[2020-03-18] MEDS: Ascorbic Acid 500 mg Chewable Tablet PO SCH (08:42)
[2020-03-18] MEDS: Leflunomide 10 mg Tablet PO SCH (08:42)
[2020-03-18] MEDS: Zinc Sulfate 220 MG CAP PO SCH (08:43)
[2020-03-18] MEDS: Ferrous Sulfate 325 MG TAB PO SCH ×2 (08:43→16:06)
[2020-03-18] MEDS: Heparin 5,000 UNITS/ML VIAL SC SCH ×2 (08:43→20:56)
[2020-03-18] MEDS: Sodium Bicarbonate Tab 325 MG TAB PO SCH ×3 (08:43→21:00)
[2020-03-18] MEDS: Prenatal Vitamin 1 TAB PO SCH (08:43)
[2020-03-18] MEDS: Isosorbide Dinitrate 20 MG TAB PO SCH ×3 (08:43→20:55)
[2020-03-18] MEDS: Ondansetron PF 4 MG/2 ML Vial IVP PRN (09:13)
--- NOTE | 2020-03-18 12:32 | PRG ---
DATE OF SERVICE: 03/18/2020 SUBJECTIVE: A 64-year-old female being seen for acute kidney injury. The patient denies any nausea, vomiting, or chest pain. PHYSICAL EXAMINATION: GENERAL: The patient is awake and alert. VITAL SIGNS: Afebrile. Pulse , breathing at 16, blood pressure 154/83. HEENT: Head normocephalic and atraumatic. Eyes intact, no ulcers. Nose intact, no ulcers. Ears intact, no ulcers. NECK: Supple. No JVD. CHEST: Symmetrical and clear. CARDIOVASCULAR: Shows S1 and S2, no rub, no murmur. GASTROINTESTINAL: Abdomen is soft, bowel sounds positive. EXTREMITIES: Show no edema or ulcers. SKIN: Shows no rash or petechiae. MUSCULOSKELETAL: Shows no joint swelling or stiffness. GENITOURINARY: Shows no Hodges or CVA tenderness. NEUROLOGIC: Motor intact. Cranial nerves intact. LABORATORY DATA: Reviewed. ASSESSMENT AND PLAN: 1. Chronic kidney disease stage 4 with acute kidney injury, stable. 2. Hypertension. Titrate home medication. 3. Anemia, stable. 4. Medication based on GFR appropriate. No indication for dialysis. Job ID: [id number]
[2020-03-18 18:22] LABS: Hemoglobin 9.4 g/dL (12.0-16.0); Mean Corpuscular HGB CONC 31.8 g/dL (32.0-36.0); Mean Corpuscular Hemoglobin 23.4 pg (27.0-31.0); Mean Corpuscular Volume 73.6 fL (78.0-98.0); Mean Platelet Volume 8.1 fL (7.4-10.4); Platelet Count 375 thou/uL (130-400); RBC Distribution Width 16.5 % (11.5-14.5); White Blood Cell (WBC) Count 8.8 thou/uL (4.8-10.8)
[2020-03-18 18:37] LABS: Anion Gap 16 mmol/L (10-20); BUN (Urea Nitrogen) 27 mg/dL (9.8-20.1); Calc. Creatinine Clearance 20 mL/min (70-130); Calcium 8.6 mg/dL (7.8-10.44); Carbon Dioxide 21 mmol/L (23-31); Chloride 106 mmol/L (98-107); Estimated GFR-MDRD 22; Glucose 184 mg/dL (80-115); Potassium 4.6 mmol/L (3.5-5.1); Sodium 138 mmol/L (136-145)
--- NOTE | 2020-03-18 18:41 | PDOC.HOSPP ---
- Subjective Encounter Date: 03/18/20 Encounter Time: 14:00 Subjective: The patient has mild dry cough, no SOB. No chest pain or palpitations. While ambulating, patient's heart rate goes up to 130. Patent has been in sinus rhythm per nursing staff Discussed patient's third degree block with patient. She states she is not interested in a pacemaker - Objective Vital Signs & Weight: Vital Signs (12 hours) Temp Pulse Resp BP Pulse Ox 03/18/20 12:00 113 H 16 133/69 93 L 03/18/20 09:00 98.7 F 120 H 17 170/93 H 94 L 03/18/20 08:42 112 H Weight Admit Weight 137 lb 9.6 oz Weight 134 lb 14.4 oz I&O: 03/17/20 03/18/20 03/19/20 06:59 06:59 06:59 Intake Total 1250 1305 Balance 1250 1305 Result Diagrams: 03/18/20 18:12 03/18/20 18:11 Additional Labs: Accuchecks 03/18/20 03/18/20 03/18/20 16:20 12:02 04:27 POC Glucose 173 H 151 H 152 H 03/17/20 20:44 POC Glucose 150 H Hospitalist ROS - Review of Systems Constitutional: denies: fever, chills - Medication Medications: Active Medications Generic Name Dose Route Start Last Admin Trade Name Freq PRN Reason Stop Dose Admin Acetaminophen 1,000 mg 03/02/20 23:26 03/15/20 17:47 Tylenol PO 1,000 mg Q8H PRN Administration FEVER/PAIN Artificial Tears 2 drop 03/01/20 13:54 03/05/20 08:23 Tears Naturale EA EYE 2 drop PRN PRN Administration Dry Eyes Ascorbic Acid 1,000 mg 03/02/20 09:00 03/18/20 08:42 Vitamin C PO 1,000 mg DAILY SHO Administration Calcium Carbonate 1,000 mg 03/01/20 13:54 03/08/20 16:44 Tums PO 1,000 mg Q4H PRN Administration Heartburn or Indigestion Cyclobenzaprine HCl 5 mg 03/03/20 23:13 03/16/20 19:55 Flexeril PO 5 mg TIDPRN PRN Administration Muscle Spasm Diphenhydramine HCl 25 mg 03/01/20 13:54 03/02/20 21:07 Benadryl PO 25 mg Q4H PRN Administration Itching & Hives (mild) Ferrous Sulfate 325 mg 03/02/20 17:00 03/18/20 16:06 Feosol PO 325 mg BID-WM SHO Administration Heparin Sodium (Porcine) 5,000 units 03/08/20 21:00 03/18/20 08:43 Heparin SC 5,000 units BID SHO Administration Hydralazine HCl 10 mg 03/01/20 13:54 03/01/20 21:30 Apresoline SLOW IVP 10 mg Q4H PRN Administration SBP > 180 and HR < 70 Hydralazine HCl 100 mg 03/15/20 15:00 03/18/20 16:06 Apresoline PO 100 mg TID SHO Administration Insulin Glargine 10 units/ 0.1 mls @ 0 mls/hr 03/15/20 21:00 03/17/20 20:28 Miscellaneous Medication SC 0.1 mls HS SHO Administration Insulin Human Lispro 0 units 03/04/20 06:56 03/18/20 06:23 Humalog SC 3 units .AGGRESSIVE SLIDING PRN Administration Aggressive Correctional Scale Insulin Human Lispro 0 units 03/04/20 06:56 03/08/20 20:57 Humalog SC 3 unit .BEDTIME SLIDING SC PRN Administration Bedtime Correctional Scale Isosorbide Dinitrate 20 mg 03/08/20 15:00 03/18/20 16:09 Isordil PO 20 mg TID SHO Administration Labetalol HCl 20 mg 03/10/20 05:07 03/17/20 17:57 Normodyne SLOW IVP 20 mg Q4H PRN Administration SBP > 160 use 2nd Labetalol HCl 400 mg 03/11/20 21:00 03/18/20 08:42 Normodyne PO 400 mg BID SHO Administration Leflunomide 20 mg 02/29/20 09:00 03/18/20 08:42 Arava PO 20 mg DAILY SHO Administration Loperamide HCl 2 mg 03/01/20 13:54 03/02/20 16:19 Imodium PO 2 mg PRN PRN Administration Diarrhea/Loose Stools Metoclopramide HCl 5 mg 03/01/20 13:54 03/07/20 15:07 Reglan IVP 5 mg Q4H PRN Administration Nausea Nifedipine 90 mg 03/11/20 21:00 03/17/20 20:30 Procardia Xl PO 90 mg HS SHO Administration Ondansetron HCl 4 mg 02/28/20 23:19 03/18/20 09:13 Zofran IVP 4 mg Q6H PRN Administration Nausea/Vomiting Pantoprazole Sodium 40 mg 02/29/20 09:00 03/18/20 08:43 Protonix PO 40 mg BID SHO Administration Multivit/Folic Acid/Iron 1 tab 02/29/20 09:00 03/18/20 08:43 Vitamin PO 1 tab DAILY SHO Administration Sodium Bicarbonate 325 mg 03/17/20 15:00 03/18/20 16:06 Bicarbonate, Sodium PO 325 mg TID SHO Administration Sodium Chloride 10 ml 02/29/20 09:00 03/18/20 08:45 Flush - Normal Saline IVF 10 ml Q12HR SHO Administration Sodium Chloride 10 ml 02/29/20 00:42 03/02/20 22:48 Flush - Normal Saline IVF 10 ml PRN PRN Administration Saline Flush Tamsulosin HCl 0.4 mg 03/16/20 21:00 03/17/20 20:29 Flomax PO 0.4 mg HS SHO Administration Vitamin E 200 units 03/02/20 09:00 03/18/20 08:43 Vitamin E PO 200 units DAILY SHO Administration Zinc Sulfate 220 mg 03/02/20 09:00 03/18/20 08:43 Zinc Sulfate PO 220 mg DAILY SHO Administration - Exam General Appearance: NAD, awake alert Eye: PERRL, anicteric sclera ENT: normocephalic atraumatic, no oropharyngeal lesions Neck: no JVD Heart: RRR, no murmur, no gallops, no rubs Respiratory: CTAB, no wheezes, no rales, no ronchi Gastrointestinal: soft, non-tender, non-distended, normal bowel sounds Extremities: no cyanosis, no clubbing, no edema Skin: normal turgor, no lesions, no rashes Hosp A/P - Plan Chest Xray 02/27: worsening vascular congestion Renal ultrasound: no hydronephrosis or focal renal lesion. Slight increased echogenicity of the left kidney Chest X ray : multifocal infiltrates vs pulm edema THis is 64 year old female with COVID who presented with worsening weaakness and SOB on exertion #Acute hypoxic respiratory failure secondary to COVID pneumonia and pulmonary edema- resolved - repeat COVID swab 03/05 positive and 03/12 positive. Will repeat another one tomorrow - s/p 5 days of dexamethasone - off diuretics # Complete heart block #Sinus tachycardia - patient not interested in pacemaker - will see if patient can get event monitor prior to dc.Appears asymptomatic #Acute Kidney Injury -creatinine improved to 2.68, will monitor #Hypertensive urgency - BP 100 to 160's - on labetalol and hydralazine. Clonidine discontinued earlier due to some low BP Type II diabetes - continue lantus 30 units qhs Dispo: pending improvement oxygen, blood pressure and creatinine
[2020-03-18] MEDS: NIFEdipine XL 90 MG TAB PO SCH (20:55)
[2020-03-18] MEDS: Tamsulosin HCl 0.4 MG CAP PO SCH (20:56)
[2020-03-18] MEDS: Insulin Glargine 10 UNITS in Pre-Filled Syringe 1 EACH SC SCH (20:57)
[2020-03-19 05:01] LABS: Anion Gap 12 mmol/L (10-20); BUN (Urea Nitrogen) 26 mg/dL (9.8-20.1); Calc. Creatinine Clearance 22 mL/min (70-130); Calcium 8.1 mg/dL (7.8-10.44); Carbon Dioxide 21 mmol/L (23-31); Chloride 108 mmol/L (98-107); Estimated GFR-MDRD 24; Glucose 115 mg/dL (80-115); Potassium 4.6 mmol/L (3.5-5.1); Sodium 136 mmol/L (136-145)
[2020-03-19] MEDS: Labetalol 100 MG TAB PO SCH ×2 (07:27→20:31)
[2020-03-19] MEDS: Ascorbic Acid 500 mg Chewable Tablet PO SCH (07:27)
[2020-03-19] MEDS: Ferrous Sulfate 325 MG TAB PO SCH ×2 (07:28→16:30)
[2020-03-19] MEDS: Prenatal Vitamin 1 TAB PO SCH (07:28)
[2020-03-19] MEDS: hydrALAZINE 25 MG TAB PO SCH ×3 (07:28→20:31)
[2020-03-19] MEDS: Zinc Sulfate 220 MG CAP PO SCH (07:28)
[2020-03-19] MEDS: Isosorbide Dinitrate 20 MG TAB PO SCH (07:28)
[2020-03-19] MEDS: Heparin 5,000 UNITS/ML VIAL SC SCH ×2 (07:29→20:32)
[2020-03-19] MEDS: Leflunomide 10 mg Tablet PO SCH (07:29)
[2020-03-19] MEDS: Sodium Bicarbonate Tab 325 MG TAB PO SCH ×3 (07:29→20:32)
[2020-03-19] MEDS: hydrALAZINE 20 MG/ML VIAL SLOW IVP PRN (10:00)
[2020-03-19] MEDS: HumaLOG 300 UNITS/3 ML VIAL SC PRN (11:15)
--- NOTE | 2020-03-19 11:24 | PRG ---
DATE OF SERVICE: 03/19/2020 SUBJECTIVE: A 64-year-old female being seen for acute kidney injury. The patient denies nausea, vomiting, or chest pain. OBJECTIVE: GENERAL: The patient is awake and alert. VITAL SIGNS: Afebrile, pulse 75, breathing 16, and blood pressure was 182/86. __HEENT: Head normocephalic and atraumatic. Eyes intact, no ulcers. Nose intact, no ulcers. Ears intact, no ulcers. NECK: Supple. No JVD. CHEST: Symmetrical and clear. CARDIOVASCULAR: Shows S1 and S2, no rub, no murmur. GASTROINTESTINAL: Abdomen is soft, bowel sounds positive. EXTREMITIES: Show no edema or ulcers. SKIN: Shows no rash or petechiae. MUSCULOSKELETAL: Shows no joint swelling or stiffness. GENITOURINARY: Shows no Hodges or CVA tenderness. NEUROLOGIC: Motor intact. Cranial nerves intact. ASSESSMENT AND PLAN: 1. Chronic kidney disease, stage 4, stable. 2. Acute kidney injury, stable. 3. Hypertension and tachycardia. Management per primary team. The patient will need beta blockers. 4. Anemia, stable. 5. Medication based on GFR appropriate. Job ID: [id number] MTDD
[2020-03-19 12:19] LABS: SARS-CoV-2 MS2 Positive; SARS-CoV-2 N Gene Positive; SARS-CoV-2 S Gene Positive; SARS-CoV-2 orf1ab Negative
[2020-03-19 15:05] LABS: D-Dimer Test 2.15 *mcg/mL (0.27-0.43)
--- NOTE | 2020-03-19 15:47 | PDOC.HOSPP ---
- Subjective Encounter Date: 03/19/20 Encounter Time: 13:00 Subjective: The patient is feeling fine. She only has intermittent dry cough. Patient is requesting to go home. Unable to find a heart monitor in the hospital to place prior to discharge Heart rate continues to be 110 while ambulating. Patient states she is asymptomatic. SHe denies palpitations Patient denies headaches or chest pain. - Objective Vital Signs & Weight: Vital Signs (12 hours) Temp Pulse Resp BP BP BP Pulse Ox 03/19/20 11:20 98.8 F 104 H 19 173/82 H 95 03/19/20 10:00 112 H 182/86 H 03/19/20 09:50 109 H 182/86 H 03/19/20 08:40 99.0 F 108 H 18 217/100 H 95 03/19/20 07:28 112 H 03/19/20 07:27 112 H 03/19/20 04:00 99.2 F 112 H 20 162/87 H 96 Weight Admit Weight 137 lb 9.6 oz Weight 131 lb 6.4 oz I&O: 03/18/20 03/19/20 03/20/20 06:59 06:59 06:59 Intake Total 1305 720 Balance 1305 720 Result Diagrams: 03/18/20 18:12 03/19/20 04:22 Additional Labs: Accuchecks 03/19/20 03/19/20 03/18/20 09:59 04:57 21:10 POC Glucose 232 H 131 H 204 H 03/18/20 16:20 POC Glucose 173 H Hospitalist ROS - Review of Systems Constitutional: denies: fever, chills - Medication Medications: Active Medications Generic Name Dose Route Start Last Admin Trade Name Freq PRN Reason Stop Dose Admin Acetaminophen 1,000 mg 03/02/20 23:26 03/15/20 17:47 Tylenol PO 1,000 mg Q8H PRN Administration FEVER/PAIN Artificial Tears 2 drop 03/01/20 13:54 03/05/20 08:23 Tears Naturale EA EYE 2 drop PRN PRN Administration Dry Eyes Ascorbic Acid 1,000 mg 03/02/20 09:00 03/19/20 07:27 Vitamin C PO 1,000 mg DAILY SHO Administration Calcium Carbonate 1,000 mg 03/01/20 13:54 03/08/20 16:44 Tums PO 1,000 mg Q4H PRN Administration Heartburn or Indigestion Cyclobenzaprine HCl 5 mg 03/03/20 23:13 03/16/20 19:55 Flexeril PO 5 mg TIDPRN PRN Administration Muscle Spasm Diphenhydramine HCl 25 mg 03/01/20 13:54 03/02/20 21:07 Benadryl PO 25 mg Q4H PRN Administration Itching & Hives (mild) Ferrous Sulfate 325 mg 03/02/20 17:00 03/19/20 07:28 Feosol PO 325 mg BID-WM SHO Administration Heparin Sodium (Porcine) 5,000 units 03/08/20 21:00 03/19/20 07:29 Heparin SC 5,000 units BID SHO Administration Hydralazine HCl 10 mg 03/01/20 13:54 03/19/20 10:00 Apresoline SLOW IVP 10 mg Q4H PRN Administration SBP > 180 and HR < 70 Hydralazine HCl 100 mg 03/15/20 15:00 03/19/20 07:28 Apresoline PO 100 mg TID SHO Administration Insulin Glargine 10 units/ 0.1 mls @ 0 mls/hr 03/15/20 21:00 03/18/20 20:57 Miscellaneous Medication SC 0.1 mls HS SHO Administration Insulin Human Lispro 0 units 03/04/20 06:56 03/19/20 11:15 Humalog SC 6 units .AGGRESSIVE SLIDING PRN Administration Aggressive Correctional Scale Insulin Human Lispro 0 units 03/04/20 06:56 03/08/20 20:57 Humalog SC 3 unit .BEDTIME SLIDING SC PRN Administration Bedtime Correctional Scale Labetalol HCl 20 mg 03/10/20 05:07 03/17/20 17:57 Normodyne SLOW IVP 20 mg Q4H PRN Administration SBP > 160 use 2nd Labetalol HCl 400 mg 03/11/20 21:00 03/19/20 07:27 Normodyne PO 400 mg BID SHO Administration Leflunomide 20 mg 02/29/20 09:00 03/19/20 07:29 Arava PO 20 mg DAILY SHO Administration Loperamide HCl 2 mg 03/01/20 13:54 03/02/20 16:19 Imodium PO 2 mg PRN PRN Administration Diarrhea/Loose Stools Metoclopramide HCl 5 mg 03/01/20 13:54 03/07/20 15:07 Reglan IVP 5 mg Q4H PRN Administration Nausea Nifedipine 90 mg 03/11/20 21:00 03/18/20 20:55 Procardia Xl PO 90 mg HS SHO Administration Ondansetron HCl 4 mg 02/28/20 23:19 03/18/20 09:13 Zofran IVP 4 mg Q6H PRN Administration Nausea/Vomiting Pantoprazole Sodium 40 mg 02/29/20 09:00 03/19/20 07:28 Protonix PO 40 mg BID SHO Administration Multivit/Folic Acid/Iron 1 tab 02/29/20 09:00 03/19/20 07:28 Vitamin PO 1 tab DAILY SHO Administration Sodium Bicarbonate 325 mg 03/17/20 15:00 03/19/20 07:29 Bicarbonate, Sodium PO 325 mg TID SHO Administration Sodium Chloride 10 ml 02/29/20 09:00 03/19/20 10:01 Flush - Normal Saline IVF 10 ml Q12HR SHO Administration Sodium Chloride 10 ml 02/29/20 00:42 03/02/20 22:48 Flush - Normal Saline IVF 10 ml PRN PRN Administration Saline Flush Tamsulosin HCl 0.4 mg 03/16/20 21:00 03/18/20 20:56 Flomax PO 0.4 mg HS SHO Administration Vitamin E 200 units 03/02/20 09:00 03/19/20 07:29 Vitamin E PO 200 units DAILY SHO Administration Zinc Sulfate 220 mg 03/02/20 09:00 03/19/20 07:28 Zinc Sulfate PO 220 mg DAILY SHO Administration - Exam General Appearance: NAD, awake alert Eye: PERRL, anicteric sclera ENT: normocephalic atraumatic, no oropharyngeal lesions Neck: no JVD Heart: RRR, no murmur, no gallops, no rubs Respiratory: CTAB, no wheezes, no rales, no ronchi Gastrointestinal: soft, non-tender, non-distended, normal bowel sounds Extremities: no cyanosis, no clubbing, no edema Skin: normal turgor, no lesions, no rashes Neurological: cranial nerve grossly intact, normal sensation to touch, no focal deficits, no new deficit Musculoskeletal: normal tone, normal strength, no muscle wasting Psychiatric: normal affect, normal behavior, A&O x 3, oriented to person Hosp A/P - Plan Chest Xray 02/27: worsening vascular congestion Renal ultrasound: no hydronephrosis or focal renal lesion. Slight increased echogenicity of the left kidney Chest X ray : multifocal infiltrates vs pulm edema THis is 64 year old female with COVID who presented with worsening weaakness and SOB on exertion #Acute hypoxic respiratory failure secondary to COVID pneumonia and pulmonary edema- resolved - repeat COVID swab 03/05 positive and 03/12 positive. REpeat on 03/18 was negative - s/p 5 days of dexamethasone - off diuretics # Complete heart block #Sinus tachycardia - patient not interested in pacemaker - will see if patient can get event monitor prior to dc. No heart monitor available today, will try to place one tomorrow before discharge #Acute Kidney Injury on chronic CKD -creatinine improved to 2.4, this is patient's baseline #Hypertensive urgency - BP 200 with improvement to 170 - on labetalol and hydralazine. Clonidine discontinued earlier due to nausea - will increase imdur to 40 mg tid Type II diabetes - continue lantus 30 units qhs Dispo: attempting to get heart monitor prior to dc
[2020-03-19] MEDS: Isosorbide Mononitrate 20 MG TAB PO SCH ×2 (16:30→20:32)
[2020-03-19] MEDS: NIFEdipine XL 90 MG TAB PO SCH (20:32)
[2020-03-19] MEDS: Tamsulosin HCl 0.4 MG CAP PO SCH (20:32)
[2020-03-19] MEDS: Insulin Glargine 10 UNITS in Pre-Filled Syringe 1 EACH SC SCH (20:56)
[2020-03-20] MEDS: Ascorbic Acid 500 mg Chewable Tablet PO SCH (08:55)
[2020-03-20] MEDS: Ferrous Sulfate 325 MG TAB PO SCH (08:55)
[2020-03-20] MEDS: Heparin 5,000 UNITS/ML VIAL SC SCH (08:56)
[2020-03-20] MEDS: Isosorbide Mononitrate 20 MG TAB PO SCH (08:56)
[2020-03-20] MEDS: Labetalol 100 MG TAB PO SCH (08:56)
[2020-03-20] MEDS: hydrALAZINE 25 MG TAB PO SCH (08:56)
[2020-03-20] MEDS: Sodium Bicarbonate Tab 325 MG TAB PO SCH (08:57)
[2020-03-20] MEDS: Zinc Sulfate 220 MG CAP PO SCH (08:57)
[2020-03-20] MEDS: Prenatal Vitamin 1 TAB PO SCH (08:57)
[2020-03-20] MEDS: Leflunomide 10 mg Tablet PO SCH (09:04)
[2020-03-20 09:35] VITALS: TEMP 96.8
[2020-03-20 10:11] LABS: Anion Gap 15 mmol/L (10-20); BUN (Urea Nitrogen) 22 mg/dL (9.8-20.1); Calc. Creatinine Clearance 23 mL/min (70-130); Calcium 8.6 mg/dL (7.8-10.44); Carbon Dioxide 19 mmol/L (23-31); Chloride 107 mmol/L (98-107); Estimated GFR-MDRD 26; Glucose 133 mg/dL (80-115); Potassium 4.4 mmol/L (3.5-5.1); Sodium 137 mmol/L (136-145)
[2020-03-20] MEDS: Ondansetron PF 4 MG/2 ML Vial IVP PRN (10:15)
--- NOTE | 2020-03-20 12:13 | PRG ---
DATE OF SERVICE: 03/20/2020 SUBJECTIVE: The patient is on COVID isolation. OBJECTIVE: VITAL SIGNS: Temperature 96.8, pulse 130, respiratory rate 16, blood pressure 171/101. LABORATORY DATA: Potassium 4.4, BUN is 22, and creatinine is 2.3. ASSESSMENT AND PLAN: 1. Acute kidney injury on chronic kidney disease stage 4 with improvement in labs. 2. Hyponatremia. Limit fluid intake. 3. Hyperkalemia. 4. Hypertension. 5. COVID-19 infection. 6. Overall, labs are better. We will monitor. Job ID: [id number]
[2020-03-20 12:21] VITALS: BP 156/87
--- NOTE | 2020-03-20 19:23 | DIS ---
DATE OF ADMISSION: 02/29/2020 DATE OF DISCHARGE: 03/20/2020 DISCHARGE DIAGNOSES: 1. Acute hypoxic respiratory failure secondary to COVID pneumonia and pulmonary edema. 2. Complete heart block. 3. Sinus tachycardia. 4. Acute kidney injury. 5. Hypertensive urgency. CONSULTATIONS: 1. Cardiology with Zaid Fletcher MD. 2. Tatyana Messer MD of Nephrology. BRIEF HISTORY OF PRESENT ILLNESS: This is a 64-year-old female with a past medical history of chronic kidney disease, who presented to the emergency room with generalized weakness, malaise, headache, cough, shortness of breath, nausea, vomiting, diarrhea, and poor oral intake for about one week. The patient states she was diagnosed with COVID two days prior. She reported more weakness and more dyspnea on exertion. She was admitted to the hospital for further workup. HOSPITAL COURSE: 1. Acute hypoxic respiratory failure secondary to COVID-19 pneumonia versus pulmonary edema: The patient was monitored in the hospital. She did require 3 L of nasal cannula on 03/07 and was eventually weaned down to room air. She received five days of dexamethasone. The patient did improve with the dexamethasone and was weaned off oxygen. She did not receive oral antibiotics since she rapidly improved. Repeat chest x-ray on 03/10 showed stable multifocal infiltrates. She had three COVID swabs on 03/05, 03/12, and 03/19, which were all positive. However, given that she has had this infection for over a month, she most likely is not contagious. However, she was advised to wear her mask if she continues to cough. She should get a repeat chest x-ray in 6 weeks and follow up with her PCP in a week. She was resumed on her outpatient Lasix. 2. Complete heart block/sinus tachycardia: The patient had a few episodes of nausea while in the hospital, which progressed to third-degree AV block shortly after. The patient was asymptomatic during these events and had no syncope, chest pain, dizziness, or lightheadedness. She was seen by Cardiology in consultation. They recommended continuing her labetalol because she is typically tachycardic at baseline with heart rate 110-120. She had a recurrent event of complete heart block on the day of discharge. However, she did not want a pacemaker. I discussed with Cardiology , Dr. Fletcher and EP Dr. Bunch who stated that there is no urgent indication for intervention given that her heart block episode could have been triggered by vagal episode like nausea. Also they did not feel there was indication to put an event monitor given her COVID + status and since she is asymptomatic with her tachycardia. She was advised to come back to the hospital if she has any dizziness, lightheadedness, palpitations, or worsening nausea. I advised her to follow up with Cardiology Dr. Fletcher in a month and Dr. Bunch within a week. 3. Hypertensive urgency: The patient had blood pressures greater than 200 persistently while in the hospital. She is on labetalol 400 mg twice daily and hydralazine 100 mg t.i.d. Nifedipine 90 mg qhs was added. She was started on clonidine as well; however, she did have an episode of hypotension with this, so this was discontinued. She was started on Imdur 20 mg t.i.d. and was increased to 40 mg three times daily with improvement in her blood pressure to 156 systolic. She will follow up with Nephrology and Cardiology as an outpatient. 4. Acute kidney injury: The patient's creatinine increased to 4.12 while in the hospital. She did receive IV Lasix for a few days with improvement in her creatinine to 2.31, which is the patient's baseline. She was resumed on her outpatient Lasix 20 mg daily. She was also started on sodium bicarbonate 325 mg three times daily. She should follow up with Dr. Ortiz in a week with a repeat BMP. 5. Type 2 diabetes: The patient had blood sugars of 245 while in the hospital. She was started on Lantus. She will be discharged with glipizide given renal dysfunction and since this is new diagnosis for her. DISCHARGE PHYSICAL EXAMINATION: VITAL SIGNS: Temperature 96.8, heart rate 113, respiratory rate 16, O2 saturation 94% on room air, and blood pressure 156/87. GENERAL: The patient is alert, awake, and oriented x3. CVS: Regular rate and rhythm with no murmurs, rubs, or gallops. LUNGS: Clear to auscultation bilaterally. ABDOMEN: Positive bowel sounds, soft, nontender, and nondistended. EXTREMITIES: No edema. PERTINENT LABORATORY DATA: CBC 03/18: White count 8.8, hemoglobin 9.4, hematocrit 29.5, and platelet count 375. BMP 03/20: Shows sodium 137 and creatinine of 2.31. Rest of BMP is unremarkable. Ferritin: 4699.48 on 03/10. LFTs: AST 35, ALT 11, and alkaline phosphatase 64. LDH: 359. Lipid panel: Triglyceride 206, cholesterol 159, LDL 87, and HDL 31. UA on 03/07: Normal. COVID PCR : 03/05 positive, 03/12 positive, and 03/19 positive. PERTINENT IMAGING: Chest x-ray 02/27: New patchy airspace opacities suspicious for pneumonia. Knee x-ray 02/27: Osteoarthritis and chondrocalcinosis involving the left knee. Knee x-ray 02/27: Chondrocalcinosis and osteoarthritis. Chest x-ray 03/08: Shows mild cardiomegaly with mild vascular congestion. Renal ultrasound on 03/08: Increased echogenicity of the left kidney. No hydronephrosis. Chest x-ray 03/10: Stable multifocal infiltrates versus pulmonary edema. DISCHARGE CONDITION: Stable. ACTIVITY: As tolerated. DIET: Heart healthy diet. DISCHARGE MEDICATIONS: 1. Furosemide 20 mg p.o. daily p.r.n. 2. Imdur 40 mg p.o. t.i.d. 3. Nifedipine 90 mg p.o. at bedtime. 4. Sodium bicarbonate 325 mg p.o. three times daily. 5. Labetalol 400 mg p.o. b.i.d. 6. Hydralazine 100 mg p.o. t.i.d. 7. Omeprazole 20 mg p.o. daily. 8. Leflunomide 20 mg p.o. daily. 9. Glipizide 2.5 mg po daily DISCHARGE INSTRUCTIONS: . Follow up with Dr. Fletcher in a month and after her COVID test comes back negative, consider following up with Dr. Bunch as well for consideration of pacemaker if needed. She will follow up with her PCP with regard to new diagnosis of diabetes. SHe should get repeat chest X Ray in 6 weeks. Follow up with Dr. Ortiz in a week and have her creatinine repeated then. Job ID: [id number] MTDD
== END 2020-03-20 13:02 | disposition home health service (06) | DRG 177 ==
LOC: ERS 16:45 → 2SW 22:10 → OBSVTOIN 02-29 19:02
PROVIDERS: ADMIT Internal Medicine; ATTEND Internal Medicine
PROC: 8E0ZXY6 Isolation (ICD-10-PCS; 2020-02-29)
PROC: 30233N1 Transfusion of Nonautologous Red Blood Cells into Peripheral Vein, Percutaneous Approach (ICD-10-PCS; principal; 2020-03-15)
DX: U07.1 COVID-19 (principal); J12.89 Other viral pneumonia; J96.01 Acute respiratory failure with hypoxia; I44.2 Atrioventricular block, complete; N17.9 Acute kidney failure, unspecified; E87.1 Hypo-osmolality and hyponatremia; N18.5 Chronic kidney disease, stage 5; J81.1 Chronic pulmonary edema; I12.0 Hypertensive chronic kidney disease with stage 5 chronic kidney disease or end stage renal disease; E87.2 Acidosis; I16.0 Hypertensive urgency; E11.22 Type 2 diabetes mellitus with diabetic chronic kidney disease; E78.5 Hyperlipidemia, unspecified; E86.0 Dehydration; D63.1 Anemia in chronic kidney disease; E11.65 Type 2 diabetes mellitus with hyperglycemia; K21.9 Gastro-esophageal reflux disease without esophagitis; M11.20 Other chondrocalcinosis, unspecified site; M06.9 Rheumatoid arthritis, unspecified; E87.5 Hyperkalemia; E83.42 Hypomagnesemia; E87.70 Fluid overload, unspecified; E11.649 Type 2 diabetes mellitus with hypoglycemia without coma; I95.9 Hypotension, unspecified; T38.0X5A Adverse effect of glucocorticoids and synthetic analogues, initial encounter; D72.829 Elevated white blood cell count, unspecified; Z90.710 Acquired absence of both cervix and uterus; Z98.41 Cataract extraction status, right eye; Z79.899 Other long term (current) drug therapy; Z88.5 Allergy status to narcotic agent; Z88.2 Allergy status to sulfonamides; Z91.018 Allergy to other foods; Z79.4 Long term (current) use of insulin
CPT/HCPCS: 36415; 36416; 36430; 71045; 76770; 80048; 80053; 80061; 81015; 82553; 82728; 83615; 83735; 84100; 84484; 85025; 85027; 85379; 85384; 86140; 86850; 86900; 86901; 86922; 87040; 87635; 93005; 93010; 94150; 96361; 96365; 96375; 96376; G0378; J0360; J1200; J1644; J1815; J1940; J2270; J2405; J2765; J2916; J3475; J7050; J8540; P9016; Q0163; U0003

== ENCOUNTER 2020-04-04 10:19 | Emergency (ER) | payer BC, MEDICARE, OTHER ==
[2020-04-06 14:24] LABS: SARS-CoV-2 MS2 Positive; SARS-CoV-2 N Gene Negative; SARS-CoV-2 S Gene Negative; SARS-CoV-2 by NAA Not Detected (NotDetected); SARS-CoV-2 orf1ab Negative
== END 2020-04-04 10:50 | disposition home or self-care (01) ==
LOC: ERS 10:19
DX: Z20.828 Contact with and (suspected) exposure to other viral communicable diseases (principal); E11.9 Type 2 diabetes mellitus without complications; I10 Essential (primary) hypertension; K21.9 Gastro-esophageal reflux disease without esophagitis; D64.9 Anemia, unspecified
CPT/HCPCS: 87635; 99283; U0003

== ENCOUNTER 2020-05-29 09:26 | Outpatient (CLI) | payer BC, MEDICARE ==
--- NOTE | 2020-05-29 10:44 | RAD ---
2 VIEW CHEST: Date: 05/29/2020 HISTORY: Pneumonia. COMPARISON: 04/28/2020. FINDINGS: There is cardiomegaly. There continues to be vascular and interstitial prominence bilaterally, which has a similar appearance to 04/28/2020. No focal infiltrate or consolidation. No significant effusion . IMPRESSION: Continued evidence of vascular and interstitial prominence. This may be on the basis of congestion wi th chronic interstitial edema. Other interstitial processes cannot be excluded. The findings appear s table from 04/28/2020. POS: AH
== END 2020-05-29 09:27 | disposition home or self-care (01) ==
LOC: BICRAD 09:26
PROVIDERS: ATTEND Family Medicine
DX: J12.89 Other viral pneumonia (principal); R06.00 Dyspnea, unspecified; R91.8 Other nonspecific abnormal finding of lung field
CPT/HCPCS: 71046

== ENCOUNTER 2020-07-07 15:30 | Observation (INO) | payer BC, MEDICARE, OTHER ==
[2020-07-07 16:24] LABS: Hemoglobin 7.9 g/dL (12.0-16.0); Mean Corpuscular HGB CONC 31.8 g/dL (32.0-36.0); Mean Corpuscular Hemoglobin 22.8 pg (27.0-31.0); Mean Corpuscular Volume 71.5 fL (78.0-98.0); Mean Platelet Volume 7.6 fL (7.4-10.4); Platelet Count 296 thou/uL (130-400); RBC Distribution Width 14.2 % (11.5-14.5); Red Blood Cell (RBC) Count 3.46 mill/uL (4.20-5.40); White Blood Cell (WBC) Count 6.4 thou/uL (4.8-10.8)
[2020-07-07 16:25] LABS: #Basophils 0.1 thou/uL (0.0-0.2); #Eosinphils 0.2 thou/uL (0.0-0.7); #Lymphocytes 1.9 thou/uL (1.20-3.40); #Monocytes 0.8 thou/uL (0.11-0.59); #Neutrophils 3.5 thou/uL (1.40-6.50); %Basophils 1.2 % (0.0-1.0); %Eosinophils 3.4 % (0.0-10.0); %Lymphocytes 29.1 % (21.0-51.0); %Neutrophils 54.3 % (42.0-75.0)
[2020-07-07 16:44] LABS: ALT (SGPT) 7 U/L (8-55); AST (SGOT) 13 U/L (5-34); Albumin 4.1 g/dL (3.4-4.8); Alkaline Phosphatase 70 U/L (40-110); Anion Gap 13 mmol/L (10-20); BUN (Urea Nitrogen) 49 mg/dL (9.8-20.1); Bilirubin, Total 0.2 mg/dL (0.2-1.2); Calc. Creatinine Clearance 0 mL/min (70-130); Calcium 7.6 mg/dL (7.8-10.44); Carbon Dioxide 23 mmol/L (23-31); Chloride 111 mmol/L (98-107); Estimated GFR-MDRD 15; Globulin 4.1 g/dL (2.4-3.5); Glucose 89 mg/dL (80-115); Protein, Total 8.2 g/dL (6.0-8.3); Sodium 143 mmol/L (136-145)
[2020-07-07 16:45] LABS: Elliptocytes SLIGHT = 2-5 cells (100X) (0-1/hpf); Hypochromia SLIGHT = 6-15 cells (100X) (0-5/hpf); MDiff Complete? YES; Ovalocytes SLIGHT = 2-5 cells (100X) (0-1/hpf); Platelet Morphology Comment Appears Adequate; Schistocytes SLIGHT = 2-5 cells (100X) (0-1/hpf); Target Cells SLIGHT = 2-5 cells (100X) (0-1/hpf); Tear Drops SLIGHT = 2-5 cells (100X) (0-1/hpf)
[2020-07-07] MEDS ORDERED: cloNIDine 0.1 MG TAB ONE (18:39)
[2020-07-07] MEDS ORDERED: Dextrose 5% in Water 1,000 ML IV PRN (18:41)
[2020-07-07] MEDS ORDERED: Dextrose 50% Abboject 50 ML SYRINGE SLOW IVP PRN (18:41)
[2020-07-07] MEDS ORDERED: Insulin Regular 300 UNITS/3 ML VIAL SC PRN ×2 (18:41)
[2020-07-07] MEDS ORDERED: Ondansetron ODT 4 MG TAB PO PRN (18:42)
[2020-07-07] MEDS ORDERED: Acetaminophen 325 MG TAB PO PRN (18:42)
[2020-07-07] MEDS ORDERED: Senokot S 8.6-50 MG TAB PO PRN (18:42)
[2020-07-07] MEDS ORDERED: Ondansetron PF 4 MG/2 ML Vial IVP PRN (18:42)
[2020-07-07] MEDS ORDERED: Calcium Carbonate 500 MG ChewTAB PO PRN (18:42)
[2020-07-07] MEDS ORDERED: Sodium Chloride 0.9% 1,000 ML IV SCH (18:45)
[2020-07-07] MEDS ORDERED: cloNIDine 0.1 MG TAB PO PRN (18:53)
[2020-07-07] MEDS ORDERED: Labetalol HCl 100 MG/20 ML VIAL SLOW IVP PRN (18:53)
[2020-07-07] MEDS ORDERED: Nitroglycerin 0.4 MG TAB (25 Tab Bottle) SL PRN (18:53)
[2020-07-07] MEDS ORDERED: NIFEdipine XL 60 MG TAB PO SCH (21:00)
[2020-07-07 21:05] LABS: Troponin I Less than 0.010 ng/mL (< 0.028)
--- NOTE | 2020-07-07 21:27 | HP ---
PRIMARY CARE PHYSICIAN: [facility]. PRIMARY CAR UNLOADER: Dr. Ortiz. CHIEF COMPLAINT: Abnormal labs. HISTORY OF PRESENT ILLNESS: The patient is a 65-year-old female with diabetes mellitus, type 2; hypertension; CKD; and rheumatoid arthritis, presented to the emergency room with above complaints. The patient was admitted at this facility three months ago with respiratory failure secondary to COVID-19 pneumonia. She had hypertensive urgency along with acute kidney injury and complete heart block during that hospitalization. The patient states that she followed up with Cardiology and Electrophysiology as outpatient with negative cardiac workup. The patient was evaluated by her neighborhood aide yesterday and was found to have hemoglobin of 7.0. She was advised to follow up with architectural sales consultant, Dr. Hartmann. The patient was evaluated by Dr. Hartmann today and was found to have hemoglobin of 7.4. She was sent to the emergency room for blood transfusion. She also states that she gets lightheaded, dizzy. She has been feeling weak recently. No chest pain, palpitations, or syncope reported. She denies recent immobilization or travel. She is unable to recall any of her home medications. PAST MEDICAL HISTORY: 1. Recent COVID-19. 2. Hypertension. 3. Diabetes mellitus, type 2. 4. Rheumatoid arthritis. 5. CKD. PAST SURGICAL HISTORY: 1. Hysterectomy. 2. Cardiac ablation. 3. History of blood transfusions. ALLERGIES: THE PATIENT IS ALLERGIC TO CODEINE, SULFA, AND TRAMADOL. CURRENT HOME MEDICATIONS: The patient is unable to recall any of her home medications. SOCIAL HISTORY: The patient drinks alcohol socially. No tobacco or drug use. The patient is full code and makes her own decision with the help of her spouse. FAMILY HISTORY: Negative for heart disease. REVIEW OF SYSTEMS: All other review of systems reviewed and were found negative. PHYSICAL EXAMINATION: VITAL SIGNS: In the emergency room showed temperature 98.2 with pulse rate of 82, blood pressure 209/126 with O2 saturation of 100% on room air. GENERAL: A 65-year-old female in no apparent distress. HEENT: Head, atraumatic and normocephalic. Sclerae anicteric. Moist mucous membranes. No oral lesion. NECK: Supple. No JVD appreciated. No carotid bruit. LUNGS: Clear to auscultation bilaterally. No wheezing, rales, or rhonchi. HEART: S1 and S2 present. Regular rate and rhythm. No rubs or gallops. ABDOMEN: Soft, nontender. Bowel sounds present. EXTREMITIES: No edema or calf tenderness. NEUROLOGIC: Grossly nonfocal. Moves all 4 extremities. PSYCHIATRY: Alert, awake, oriented x3. SKIN: Warm and dry. LYMPH NODES: No palpable lymph nodes in the neck. PERIPHERAL VASCULAR: Radial pulses are palpable bilaterally. MUSCULOSKELETAL: No joint swelling or tenderness. LABORATORY FINDINGS: CBC showed WBC 6.4 with hemoglobin 7.9, hematocrit 24.8, and platelets of 296. Chemistry showed sodium 143, potassium 4, chloride of 111, bicarb 23, BUN 49, and creatinine 3.61. Total bilirubin 0.2 with normal AST. IMAGING DATA: Chest x-ray from a month ago showed stable findings. IMPRESSION: 1. Symptomatic anemia. 2. Generalized weakness, multifactorial. 3. Acute kidney injury on chronic kidney disease, stage 4. 4. Diabetes mellitus, type 2. 5. Hypertension. 6. Hyperlipidemia. 7. Hypertension with hypertensive urgency. Please note that the patient has missed her afternoon medication dosages. 8. History of COVID-19 pneumonia three months ago. PLAN: The patient will be monitored in the telemetry unit. Serial troponins will be obtained. We will verify home medications and start accordingly. The patient is unable to recall any of her home medications at this time. We will start selected home medications based on recent discharge summary. Gentle IV hydration due to acute kidney injury. We will check reticulocyte count. We will type and screen. Update: Please note that the patient declined telemetry monitoring. The patient understands the risk associated with life-threatening complication. The patient had some questionable complete heart block during the last hospitalization. There is no history of syncope reported. The patient understands the above plan of care. Job ID: [id number]
[2020-07-08] MEDS: Sodium Chloride 0.9% 1,000 ML IV SCH ×2 (00:01→09:01)
[2020-07-08] MEDS: Famotidine 20 MG TAB PO SCH ×2 (00:07→21:25)
[2020-07-08 00:30] LABS: Troponin I 0.011 ng/mL (< 0.028)
[2020-07-08 05:39] VITALS: BMI 22.3
[2020-07-08 05:42] LABS: Reticulocyte Count 3.2 % (0.5-1.5)
[2020-07-08 05:43] LABS: #Basophils 0.1 thou/uL (0.0-0.2); #Eosinphils 0.2 thou/uL (0.0-0.7); #Lymphocytes 1.8 thou/uL (1.20-3.40); #Monocytes 0.7 thou/uL (0.11-0.59); #Neutrophils 3.2 thou/uL (1.40-6.50); %Basophils 1.1 % (0.0-1.0); %Eosinophils 3.6 % (0.0-10.0); %Lymphocytes 29.7 % (21.0-51.0); %Monocytes 12.4 % (0.0-10.0); %Neutrophils 53.2 % (42.0-75.0); Hemoglobin 7.5 g/dL (12.0-16.0); Mean Corpuscular HGB CONC 30.5 g/dL (32.0-36.0); Mean Corpuscular Hemoglobin 22.1 pg (27.0-31.0); Mean Corpuscular Volume 72.4 fL (78.0-98.0); Mean Platelet Volume 8.2 fL (7.4-10.4); Platelet Count 295 thou/uL (130-400); RBC Distribution Width 14.3 % (11.5-14.5); Red Blood Cell (RBC) Count 3.41 mill/uL (4.20-5.40)
[2020-07-08 06:13] LABS: Anion Gap 15 mmol/L (10-20); BUN (Urea Nitrogen) 46 mg/dL (9.8-20.1); Calc. Creatinine Clearance 17 mL/min (70-130); Calcium 7.3 mg/dL (7.8-10.44); Carbon Dioxide 20 mmol/L (23-31); Chloride 109 mmol/L (98-107); Estimated GFR-MDRD 18; Glucose 191 mg/dL (80-115); Iron 55 ug/dL (50-170); Iron Binding Capacity, Total 200 mcg/dL (265-497); Potassium 3.7 mmol/L (3.5-5.1); Sodium 140 mmol/L (136-145)
[2020-07-08] MEDS ORDERED: FLU VACC QS2020-21(65YR UP)/PF 240 MCG/0.7 ML SYRINGE IM ONE (06:30)
[2020-07-08] MEDS: Nitroglycerin 2% Ointment 1 INCH/1 GM Packet TOP SCH ×4 (09:00→21:21)
[2020-07-08] MEDS: Folic Acid 1 MG TAB PO SCH (09:01)
[2020-07-08] MEDS: Cyanocobalamin (Vitamin B-12) 1,000 MCG TAB PO SCH (09:01)
[2020-07-08] MEDS ORDERED: Iron, Sodium Ferric Gluconate 250 MG in Sodium Chloride 0.9% 100 ML IVPB SCH (10:00)
[2020-07-08] MEDS ORDERED: Iron Sucrose Complex 200 MG in Sodium Chloride 0.9% 100 ML IVPB SCH (10:00)
[2020-07-08] MEDS ORDERED: cloNIDine 0.2 MG TAB PO SCH ×2 (10:00→21:00)
[2020-07-08] MEDS ORDERED: NIFEdipine XL 30 MG TAB PO SCH (10:15)
--- NOTE | 2020-07-08 10:28 | PRG ---
DATE OF SERVICE: 07/08/2020 SUBJECTIVE: A 65-year-old female, being seen for acute kidney injury. The patient denied any nausea, vomiting, or chest pain. PHYSICAL EXAMINATION: General: The patient is awake and alert. Vital Signs: Afebrile, pulse 80, breathing at 16, blood pressure 152/67. HEENT: Head normocephalic and atraumatic. Eyes intact, no ulcers. Nose intact, no ulcers. Ears intact, no ulcers. Neck: Supple. No JVD. Chest: Symmetrical and clear. Cardiovascular: Shows S1 and S2, no rub, no murmur. Gastrointestinal: Abdomen is soft, bowel sounds positive. Extremities: Show no edema or ulcers. Skin: Shows no rash or petechiae. Musculoskeletal: Shows no joint swelling or stiffness. Genitourinary: Shows no Hodges or CVA tenderness. Neurologic: Motor intact. Cranial nerves intact. LABORATORY DATA: Reviewed. ASSESSMENT AND PLAN: 1. Stage 4 chronic kidney disease, stable. 2. Acute kidney injury, improved. 3. Hypertension, improved. Titrate home medication. 4. No indication for dialysis at this time. Job ID: [id number]
--- NOTE | 2020-07-08 10:52 | CON ---
DATE OF CONSULTATION: 07/07/2020 REASON FOR CONSULTATION: Elevated creatinine. TIME OF SERVICE: 08:00 p.m. in the emergency room. HISTORY OF PRESENT ILLNESS: This is a very pleasant 65-year-old female, who presented to the hospital for a rise in creatinine and severe anemia. The patient was recently treated for COVID. The patient denies any nausea, vomiting, or chest pain. PAST MEDICAL HISTORY: Significant for; 1. COVID. 2. Hypertension. 3. Diabetes mellitus. 4. Kidney biopsy. 5. Hysterectomy. 6. Multiple blood transfusion. 7. Anemia. 8. Hysterectomy. SOCIOECONOMIC HISTORY: No alcohol or drug use. FAMILY HISTORY: Negative for ESRD. ALLERGIES: REVIEWED. HOME MEDICATIONS: List reviewed. REVIEW OF SYSTEMS: A 15-point review of systems was performed, negative except for positives noted above. HEENT: Eyes intact, no diplopia. Ears: No hearing loss or earache. Nose: No discharge or bleeding. CHEST: No cough or phlegm. ABDOMEN: No nausea or vomiting. GENITOURINARY: No hematuria. No Hodges catheter. MUSCULOSKELETAL: No low back pain. No joint swelling or pain. NEUROLOGICAL: No syncope. No seizures. SKIN: No complaints of rash or itching. PSYCHIATRIC: No depression. CONSTITUTIONAL: No weight loss or loss of appetite. LABORATORY DATA: Labs showed creatinine is 3.6. Hemoglobin is 7.8. ASSESSMENT AND PLAN: 1. Chronic kidney disease stage 4 with acute kidney injury, most likely due to decreased effective arterial blood volume. 2. Uncontrolled hypertension. We will follow along. Continue gentle hydration. 3. Anemia, stable. We will consider Epogen once blood pressure is better. Management per Hematology. 4. Hypertension. Titrate home blood pressure medications. Low-salt . Job ID: [id number]
[2020-07-08 12:03] LABS: SARS-CoV-2 MS2 Positive; SARS-CoV-2 N Gene Negative; SARS-CoV-2 S Gene Negative; SARS-CoV-2 by NAA Not Detected (NotDetected); SARS-CoV-2 orf1ab Negative
[2020-07-08] MEDS ORDERED: Labetalol 100 MG TAB PO SCH (12:15)
[2020-07-08] MEDS ORDERED: Non-Formulary Item 1 EACH (Hydralazine Hcl [Hydralazine Hcl] 100 MG Tablet) PO SCH (14:00)
[2020-07-08] MEDS: hydrALAZINE 25 MG TAB PO SCH ×2 (14:08→21:26)
[2020-07-08] MEDS: cloNIDine 0.2 MG TAB PO SCH ×2 (15:31→21:22)
[2020-07-08] MEDS: Isosorbide Mononitrate 20 MG TAB PO SCH ×2 (15:31→21:26)
--- NOTE | 2020-07-08 16:15 | PDOC.HOSPP ---
- Subjective Encounter Date: 07/08/20 Encounter Time: 11:00 Subjective: Patient seen and examined for symptomatic anemia with generalized weakness. Denies any chest pain or shortness of breath. Denies any nausea, vomiting, hematemesis or melena. - Objective Vital Signs & Weight: Vital Signs (12 hours) Temp Pulse Resp BP BP Pulse Ox 07/08/20 15:31 82 181/82 H 07/08/20 14:08 82 191/86 H 07/08/20 13:20 97.9 F 84 18 172/79 H 100 07/08/20 11:11 96 07/08/20 10:34 88 206/84 H 07/08/20 10:22 206/84 H 07/08/20 08:26 97.9 F 82 18 191/86 H 92 L 07/08/20 05:00 98.2 F 80 16 153/67 H 95 Weight Weight 134 lb 0.657 oz Result Diagrams: 07/08/20 05:18 07/08/20 05:18 Additional Labs: Abnormal Lab Results - Last 48 hrs 07/07/20 16:16: Chloride 111 H, BUN 49 H, Creatinine 3.61 H, Calcium 7.6 L, ALT 7 L, Globulin 4.1 H, Albumin/Globulin Ratio 1.0 L 07/07/20 16:16: RBC 3.46 L, Hgb 7.9 L, Hct 24.8 L, MCV 71.5 L, MCH 22.8 L, MCHC 31.8 L, Monocytes % 12.0 H, Basophils % 1.2 H, Monocytes # 0.8 H 07/08/20 05:18: Chloride 109 H, Carbon Dioxide 20 L, BUN 46 H, Creatinine 3.12 H, Calcium 7.3 L, TIBC 200 L 07/08/20 05:18: RBC 3.41 L, Hgb 7.5 L, Hct 24.7 L, MCV 72.4 L, MCH 22.1 L, MCHC 30.5 L, Monocytes % 12.4 H, Basophils % 1.1 H, Monocytes # 0.7 H 07/08/20 05:18: Retic Count 3.2 H EKG Reviewed by me: Yes (Sinus rhythm) Hospitalist ROS - Review of Systems Respiratory: denies: cough, dry, shortness of breath, hemoptysis, SOB with excertion, pleuritic pain, sputum, wheezing, other Cardiovascular: denies: chest pain, palpitations, orthopnea, paroxysmal noc. dyspnea, edema, light headedness, other - Medication Medications: Active Medications Generic Name Dose Route Start Last Admin Trade Name Freq PRN Reason Stop Dose Admin Acetaminophen 650 mg 07/07/20 18:42 07/08/20 03:45 Acetaminophen 325 Mg Tab PO 650 mg Q4H PRN Administration Headache/Fever/Mild Pain (1-3) Clonidine 0.1 mg 07/07/20 18:53 07/08/20 03:45 Clonidine 0.1 Mg Tab PO 0.1 mg Q4H PRN Administration SBP Greater Than 180 Clonidine 0.2 mg 07/08/20 15:00 07/08/20 15:31 Clonidine 0.2 Mg Tab PO 0.2 mg TID SHO Administration Cyanocobalamin 1,000 mcg 07/08/20 09:00 07/08/20 09:01 Cyanocobalamin (Vitamin B-12) 1,000 Mcg Tab PO 1,000 mcg DAILY SHO Administration Famotidine 20 mg 07/07/20 21:00 07/08/20 00:07 Famotidine 20 Mg Tab PO 20 mg QPM SHO Administration Folic Acid 1 mg 07/08/20 09:00 07/08/20 09:01 Folic Acid 1 Mg Tab PO 1 mg DAILY SHO Administration Hydralazine HCl 100 mg 07/08/20 14:00 07/08/20 14:08 Hydralazine 25 Mg Tab PO 100 mg Q8HR SHO Administration Isosorbide Mononitrate 40 mg 07/08/20 14:00 07/08/20 15:31 Isosorbide Mononitrate 20 Mg Tab PO 40 mg Q8HR SHO Administration Nitroglycerin 0.5 inch 07/07/20 22:00 07/08/20 14:07 Nitroglycerin 2% Ointment 1 Inch/1 Gm Packet TOP 0.5 inch Q8HR SHO Administration - Exam General Appearance: NAD Heart: RRR, no gallops Respiratory: no wheezes, no ronchi Gastrointestinal: soft, non-tender, normal bowel sounds Extremities: no cyanosis, no clubbing Neurological: no new deficit Hosp A/P - Plan DVT proph w/SCDs IMPRESSION: 1. Symptomatic anemia. 2. Generalized weakness, multifactorial. 3. Acute kidney injury on chronic kidney disease, stage 4. 4. Diabetes mellitus, type 2. 5. Hypertension. 6. Hyperlipidemia. 7. Hypertension with hypertensive urgency. Please note that the patient has missed her afternoon medication dosages. 8. History of COVID-19 pneumonia three months ago. PLAN: Nephrology input appreciated. IV fluid discontinued per nephrology r ecommendation. We will start her on iron intravenously. Left upper extremity Doppler to rule out DVT due to left arm swelling that has been present for last few days per patient report. Home medications have been verified. Will resume all of her home antihypertensive regimen. Patient can probably be discharged home later today if her blood pressure is stable. Patient was advised to follow-up with hematology as outpatient.
--- NOTE | 2020-07-08 17:24 | ULT ---
LEFT UPPER EXTREMITY VENOUS DUPLEX EXAM: 07/08/20 HISTORY: Left upper extremity swelling and pain. real time color Doppler evaluation of the left upper extremit y was performed to include internal jugular, subclavian, axillary, brachial, basilic and cephalic vei ns. This shows a patent deep venous system with normal compressibility and augmentation. There is no evidence of DVT. IMPRESSION: No evidence of DVT of the left upper extremity. POS: OFF
[2020-07-08] MEDS ORDERED: Atorvastatin Calcium 40 MG TAB PO SCH ×2 (21:00)
[2020-07-08] MEDS ORDERED: Non-Formulary Item 1 EACH (Omeprazole [Omeprazole] 20 MG Capsule.Dr) PO SCH (21:00)
[2020-07-08] MEDS ORDERED: NIFEdipine XL 90 MG TAB PO SCH (21:00)
[2020-07-08] MEDS ORDERED: Non-Formulary Item 1 EACH (Labetalol Hcl [Labetalol Hcl] 200 MG Tablet) PO SCH (21:00)
[2020-07-08] MEDS: Labetalol 100 MG TAB PO SCH (21:25)
[2020-07-08] MEDS ORDERED: diphenhydrAMINE 25 MG CAP PO PRN (22:14)
[2020-07-08] MEDS ORDERED: Acetaminophen/Codeine 30-300mg Tablet PO PRN (22:14)
[2020-07-09] MEDS: hydrALAZINE 25 MG TAB PO SCH (06:10)
[2020-07-09] MEDS: Isosorbide Mononitrate 20 MG TAB PO SCH (06:36)
[2020-07-09] MEDS: Nitroglycerin 2% Ointment 1 INCH/1 GM Packet TOP SCH (06:37)
[2020-07-09] MEDS: cloNIDine 0.2 MG TAB PO SCH (06:37)
[2020-07-09] MEDS: Labetalol 100 MG TAB PO SCH (06:37)
[2020-07-09 07:42] VITALS: BP 131/60; TEMP 98.1
[2020-07-09] MEDS: Folic Acid 1 MG TAB PO SCH (08:59)
[2020-07-09] MEDS: Cyanocobalamin (Vitamin B-12) 1,000 MCG TAB PO SCH (09:00)
--- NOTE | 2020-07-09 13:22 | PRG ---
DATE OF SERVICE: 07/09/2020 SUBJECTIVE: A 65-year-old female being seen for acute kidney injury. The patient denied nausea, vomiting, or chest pain. OBJECTIVE: GENERAL: The patient is awake and alert. VITAL SIGNS: Afebrile, pulse 82, breathing at 16, blood pressure 131/60. HEENT: Head normocephalic and atraumatic. Eyes intact, no ulcers. Nose intact, no ulcers. Ears intact, no ulcers. NECK: Supple. No JVD. CHEST: Symmetrical and clear. CARDIOVASCULAR: Shows S1 and S2, no rub, no murmur. GASTROINTESTINAL: Abdomen is soft, bowel sounds positive. EXTREMITIES: Show no edema or ulcers. SKIN: Shows no rash or petechiae. MUSCULOSKELETAL: Shows no joint swelling or stiffness. GENITOURINARY: Shows no Hodges or CVA tenderness. NEUROLOGIC: Motor intact. Cranial nerves intact. LABORATORY DATA: Show hemoglobin 7.5. Creatinine 3.1. ASSESSMENT AND PLAN: 1. Acute kidney injury, improved. 2. Hypertension, stable. 3. Anemia, stable. We will follow the patient in clinic in 1 to 2 weeks. Job ID: [id number]
--- NOTE | 2020-07-09 13:44 | DIS ---
DATE OF ADMISSION: 07/07/2020 DATE OF DISCHARGE: 07/09/2020 DISCHARGE DISPOSITION: Home. FOLLOWUP: 1. Follow up with primary care physician at [facility] in 1 week. 2. Follow up with Nephrology and Hematology as outpatient. The patient was evaluated on the day of discharge. Denies any new complaints. Vital signs showed temperature 98.1 with pulse rate of 82, respiration 20 with blood pressure of 131/60, O2 saturation 97% on room air. DISCHARGE MEDICATIONS: Same as admission medication. No changes were made. BRIEF HOSPITAL COURSE: The patient is a 65-year-old female with hypertension and chronic kidney disease, presented to the emergency room on 07 July 2020 with generalized weakness along with lightheadedness. She was found to have acute kidney injury with maximum creatinine of 3.61. She also was anemic at 7.9. Please note that as outpatient, her hemoglobin was 7 per patient report. She received iron infusion during this hospital stay. Her reticulocyte was 3.2 with a ferritin of 568, iron of 55 with TIBC of 200. Renal function improved with IV hydration. She was evaluated by Nephrology as well. The patient had hypertensive urgency that improved after restarting her home medications. Please note that she was unable to recall any of her home medications on admission. She appears stable for discharge. FINAL DIAGNOSES: 1. Generalized weakness, multifactorial. 2. Symptomatic anemia. 3. Hypertension with hypertensive urgency. 4. Acute kidney injury on chronic kidney disease stage 4, improving. 5. Diabetes mellitus type 2. 6. Hypertension. 7. Hyperlipidemia. 8. History of COVID-19 pneumonia 3 months ago. The patient understands the above plan of care. DIAGNOSTIC TESTS: Left upper extremity Doppler was negative for DVT. Creatinine on admission was 3.61; at discharge, it was 3.1. Hemoglobin 7.5 with MCV 72.4 and MCH 22.1. Job ID: [id number]
== END 2020-07-09 10:58 | disposition home or self-care (01) ==
LOC: ERS 15:30 → T4-B 20:10
PROVIDERS: ADMIT Internal Medicine; ATTEND Internal Medicine
DX: I12.9 Hypertensive chronic kidney disease with stage 1 through stage 4 chronic kidney disease, or unspecified chronic kidney disease (principal); E11.22 Type 2 diabetes mellitus with diabetic chronic kidney disease; N18.4 Chronic kidney disease, stage 4 (severe); N17.9 Acute kidney failure, unspecified; I16.0 Hypertensive urgency; D64.9 Anemia, unspecified; R53.1 Weakness; E78.5 Hyperlipidemia, unspecified; K21.9 Gastro-esophageal reflux disease without esophagitis; M06.9 Rheumatoid arthritis, unspecified; Z88.2 Allergy status to sulfonamides; Z88.5 Allergy status to narcotic agent; Z88.8 Allergy status to other drugs, medicaments and biological substances; Z09 Encounter for follow-up examination after completed treatment for conditions other than malignant neoplasm; Z86.19 Personal history of other infectious and parasitic diseases
CPT/HCPCS: 36415; 80048; 80053; 82728; 83540; 83550; 84484; 85025; 85046; 86850; 86900; 86901; 87635; 93005; 94760; 96374; G0378; J2916; J3490; Q0163; U0003

== ENCOUNTER 2020-07-24 15:57 | Emergency (ER) | payer BC, MEDICARE ==
[2020-07-24 17:02] LABS: #Basophils 0.1 thou/uL (0.0-0.2); #Eosinphils 0.2 thou/uL (0.0-0.7); #Lymphocytes 1.8 thou/uL (1.20-3.40); #Monocytes 0.6 thou/uL (0.11-0.59); #Neutrophils 3.1 thou/uL (1.40-6.50); %Basophils 1.6 % (0.0-1.0); %Eosinophils 3.6 % (0.0-10.0); %Lymphocytes 30.6 % (21.0-51.0); %Monocytes 9.5 % (0.0-10.0); %Neutrophils 54.8 % (42.0-75.0); Hemoglobin 7.6 g/dL (12.0-16.0); Mean Corpuscular HGB CONC 32.5 g/dL (32.0-36.0); Mean Corpuscular Hemoglobin 23.4 pg (27.0-31.0); Mean Platelet Volume 7.6 fL (7.4-10.4); Platelet Count 350 thou/uL (130-400); RBC Distribution Width 14.1 % (11.5-14.5); Red Blood Cell (RBC) Count 3.26 mill/uL (4.20-5.40); White Blood Cell (WBC) Count 5.7 thou/uL (4.8-10.8)
[2020-07-24 17:21] LABS: ALT (SGPT) 12 U/L (8-55); AST (SGOT) 21 U/L (5-34); Albumin 4.2 g/dL (3.4-4.8); Alkaline Phosphatase 63 U/L (40-110); Anion Gap 16 mmol/L (10-20); BUN (Urea Nitrogen) 50 mg/dL (9.8-20.1); Bilirubin, Total 0.2 mg/dL (0.2-1.2); Calc. Creatinine Clearance 0 mL/min (70-130); Calcium 8.3 mg/dL (7.8-10.44); Carbon Dioxide 21 mmol/L (23-31); Chloride 107 mmol/L (98-107); Estimated GFR-MDRD 15; Glucose 162 mg/dL (80-115); Potassium 5.2 mmol/L (3.5-5.1); Protein, Total 8.2 g/dL (6.0-8.3); Sodium 139 mmol/L (136-145)
[2020-07-24 17:24] LABS: Hypochromia SLIGHT = 6-15 cells (100X) (0-5/hpf); MDiff Complete? YES; Microcytosis SLIGHT = 6-15 cells (100X) (0-5/hpf); Ovalocytes SLIGHT = 2-5 cells (100X) (0-1/hpf); Platelet Morphology Comment Appears Adequate; Polychromasia SLIGHT = 2-3 cells (100X) (0-2/hpf)
[2020-07-24] MEDS ORDERED: Ondansetron ODT 4 MG TAB ONE (17:30)
== END 2020-07-24 21:50 | disposition home or self-care (01) ==
LOC: ERS 15:57
DX: I12.9 Hypertensive chronic kidney disease with stage 1 through stage 4 chronic kidney disease, or unspecified chronic kidney disease (principal); N18.9 Chronic kidney disease, unspecified; E11.22 Type 2 diabetes mellitus with diabetic chronic kidney disease; D63.1 Anemia in chronic kidney disease; K21.9 Gastro-esophageal reflux disease without esophagitis; Z79.899 Other long term (current) drug therapy
CPT/HCPCS: 36415; 80053; 82248; 82668; 82728; 83540; 83550; 83615; 84100; 84484; 84550; 85025; 86850; 86900; 86901; 93005; Q0162

== ENCOUNTER 2020-07-25 08:48 | Day surgery (SDC) | payer BC, MEDICARE ==
[2020-07-25] MEDS ORDERED: diphenhydrAMINE 25 MG CAP PO PRN (10:23)
[2020-07-25] MEDS ORDERED: Acetaminophen 500 MG TAB PO PRN (10:23)
[2020-07-25] MEDS ORDERED: Sodium Chloride 0.9% 20 ML ONE (11:03)
[2020-07-25 11:09] VITALS: TEMP 97.6
[2020-07-25 13:33] VITALS: BP 186/85
== END 2020-07-25 13:34 | disposition home or self-care (01) ==
LOC: ONC/OP 08:48
PROVIDERS: ATTEND Internal Medicine Hematology & Oncology
PROC: 30233N1 Transfusion of Nonautologous Red Blood Cells into Peripheral Vein, Percutaneous Approach (ICD-10-PCS; principal; 2020-07-25)
DX: D64.9 Anemia, unspecified (principal); D69.6 Thrombocytopenia, unspecified; Z88.2 Allergy status to sulfonamides; Z88.5 Allergy status to narcotic agent; Z88.8 Allergy status to other drugs, medicaments and biological substances
CPT/HCPCS: 36430; 86850; 86900; 86901; P9016; Q0163

== ENCOUNTER 2020-10-05 12:10 | Outpatient (CLI) | payer MEDICARE ==
--- NOTE | 2020-10-05 14:11 | RAD ---
TWO VIEW CHEST: HISTORY: Pneumonia. COMPARISON: 05/29/2020. FINDINGS: Lungs appear clear with no evidence of infiltrate identified. Heart size upper normal and stable. V ascular markings upper normal and stable. Osseous structures unremarkable. IMPRESSION: No acute abnormality. POS: AGW
== END 2020-10-05 12:11 | disposition home or self-care (01) ==
LOC: BICRAD 12:10
PROVIDERS: ATTEND Family Medicine
DX: Z87.01 Personal history of pneumonia (recurrent) (principal)
CPT/HCPCS: 71046

== ENCOUNTER 2020-10-07 14:33 | Inpatient (IN) | payer MEDICARE ==
[2020-10-07] MEDS ORDERED: Ondansetron PF 4 MG/2 ML Vial ONE (15:33)
[2020-10-07] MEDS ORDERED: Morphine 4 MG/ML VIAL ONE ×3 (15:33→19:40)
--- NOTE | 2020-10-07 15:38 | RAD ---
Portable frontal chest radiograph: 10/07/2020 COMPARISON: 10/05/2020 HISTORY: Chest soreness, bilateral lower extremity swelling FINDINGS: No pneumothorax or pleural fluid is seen. There is no focal consolidation or alveolar edema . IMPRESSION: No acute findings.
[2020-10-07 15:54] LABS: Hemoglobin 10.9 g/dL (12.0-16.0); Mean Corpuscular HGB CONC 30.6 g/dL (32.0-36.0); Mean Corpuscular Hemoglobin 22.3 pg (27.0-31.0); Mean Corpuscular Volume 72.8 fL (78.0-98.0); Mean Platelet Volume 9.3 fL (7.4-10.4); Platelet Count 318 thou/uL (130-400); RBC Distribution Width 15.8 % (11.5-14.5); Red Blood Cell (RBC) Count 4.89 mill/uL (4.20-5.40); White Blood Cell (WBC) Count 18.3 thou/uL (4.8-10.8)
[2020-10-07 16:14] LABS: ALT (SGPT) 7 U/L (8-55); AST (SGOT) 15 U/L (5-34); Albumin 3.2 g/dL (3.4-4.8); Alkaline Phosphatase 68 U/L (40-110); Anion Gap 20 mmol/L (10-20); Anisocytosis SLIGHT = 6-15 cells (100X) (0-5/hpf); BUN (Urea Nitrogen) 53 mg/dL (9.8-20.1); Band 3 % (5-11); Bilirubin, Total 0.4 mg/dL (0.2-1.2); Calc. Creatinine Clearance 0 mL/min (70-130); Carbon Dioxide 20 mmol/L (23-31); Chloride 99 mmol/L (98-107); Globulin 3.5 g/dL (2.4-3.5); Glucose 202 mg/dL (80-115); Hypochromia SLIGHT = 6-15 cells (100X) (0-5/hpf); Lymphocytes 6 % (21-51); MDiff Complete? YES; Microcytosis SLIGHT = 6-15 cells (100X) (0-5/hpf); Monocytes 10 % (0-10); Neutrophil 81 % (42-75); Ovalocytes SLIGHT = 2-5 cells (100X) (0-1/hpf); Platelet Morphology Comment Appears Adequate; Polychromasia SLIGHT = 2-3 cells (100X) (0-2/hpf); Potassium 4.5 mmol/L (3.5-5.1); Protein, Total 6.7 g/dL (5.8-8.1); Sodium 134 mmol/L (136-145)
[2020-10-07 16:17] LABS: Calcium 5.7 mg/dL (7.8-10.44)
--- NOTE | 2020-10-07 17:34 | ULT ---
Venous duplex sonogram bilateral lower extremity HISTORY: Bilateral leg pain and edema. FINDINGS: Each common femoral vein and greater saphenous junction were evaluated along with each femo ral, deep femoral, popliteal, and posterior tibial vein. There is Good color and spectral Doppler flow, compression, and augmentation. IMPRESSION : Normal exam.
[2020-10-07] MEDS ORDERED: Magnesium 2 GM/50 ML BAG (IN WATER) ONE (17:40)
--- NOTE | 2020-10-07 18:01 | RAD ---
Right knee 4 views HISTORY: Right knee pain. COMPARISON: 02/28/2020. FINDINGS: Mild joint space narrowing and tricompartmental osteophytosis. Chondrocalcinosis of the lat eral meniscus. Osseous structures are demineralized. No acute fracture or dislocation. Minimal fluid distention of the suprapatellar bursa. Prominent calcification over the arterial structures. IMPRESSION : Mild/moderate osteoarthritic changes. Small joint effusion. Atherosclerosis.
--- NOTE | 2020-10-07 18:02 | RAD ---
Left knee 4 views HISTORY: Left knee pain. FINDINGS: Mild joint space narrowing and tricompartmental osteophytosis. No acute fracture or disloca tion. Small amount of fluid distends the suprapatellar bursa on the lateral view. Osseous structures are de mineralized. Chondrocalcinosis of the menisci. Calcification within the arterial structures. IMPRESSION : Mild osteoarthritic changes. Small joint effusion. Atherosclerosis.
[2020-10-07] MEDS ORDERED: Lidocaine 1% PF 5 ML VIAL ONE (18:22)
[2020-10-07] MEDS ORDERED: Midazolam HCl 2 mg/2 ml Vial ONE (18:45)
[2020-10-07 20:29] LABS: Bacteria/HPF 2+ HPF (None Seen); Bilirubin Negative (Negative); Blood, Urine Negative (Negative); Clarity Clear (Clear); Glucose, Urine (Dipstick) 100 mg/dL (Negative); Ketone, Urine Negative (Negative); Leukocyte 25 Leu/uL (Negative); Mucous/LPF Rare LPF (<2+); Nitrite Negative (Negative); Protein, Urine (Dipstick) 300 mg/dL (Neg-Trace); Renal Epithelial 0-3 HPF (None Seen); Specific Gravity, Urine 1.012 (1.002-1.036); Squamous Epithelial 0-3 HPF (0-3); Urobilinogen Normal mg/dL (Less than 2); pH, Urine 6.5 (5.0-9.0)
[2020-10-07 20:44] LABS: RBC Count-Automated (BF) 37098 /cu.mm; WBC/Nucleated-Auto (BF) 3335 uL
[2020-10-07 20:53] LABS: BF Color Red; Body Fluid Source Synovial Fluid; Clarity Hazy (Clear); Tube # 1
[2020-10-07 20:55] LABS: BF Segmented Neutrophils 73 %; Cell Count Non Hematic 14 %; Lymphocytes 13 %
[2020-10-07 21:05] LABS: Troponin I Less than 0.010 ng/mL (< 0.028)
[2020-10-07] MEDS ORDERED: Ondansetron PF 4 MG/2 ML Vial IVP PRN (21:45)
[2020-10-07] MEDS ORDERED: Ondansetron ODT 4 MG TAB SL PRN (21:45)
[2020-10-07] MEDS ORDERED: cefTRIAXone\\ROCEPHIN 1 GM in Sodium Chloride 0.9% 100 ML IVPB SCH (22:00)
[2020-10-07] MEDS ORDERED: Acetaminophen 650 MG Suppository PR PRN (22:03)
[2020-10-07] MEDS ORDERED: Acetaminophen 325 MG TAB PO PRN (22:03)
[2020-10-07] MEDS ORDERED: Calcium Carbonate 500 MG ChewTAB PO PRN (22:03)
--- NOTE | 2020-10-07 22:03 | PDOC.HHP ---
Hospitalist HPI - History of Present Illness b/l heel pain History of Present Illness: Case of an 65y/o female with pmhx of htn, DM, ckd stage 4, DM and RA who comes to hospital due to b/l heel and knee pain. patient refers she was on her usual state of health until yesterday night when she started with heel and knee pain, which is b/l. she states pain is 10/10 non radiating. patient denies any fever chills dysuria diarrhea or cough. states her joint have been hurting since she got covid 19 but nothing like this. She denies injury or trauma. Patient reports mild swelling. Patient reports that she is not taking anything her RA, states that was a eye exam pending before starting her medication. She denies numbness or tingling. Patient denies shortness of breath or palpitation or diaphoresis Hospitalist ROS - Review of Systems All other systems reviewed; all pertinent +/- noted in HPI/Subj Hospitalist History - Past Medical History Heme/Onc: reports: no pertinent history Hepatobiliary: reports: no pertinent history Psych: reports: no pertinent history Musculoskeletal: reports: no pertinent history Rheumatologic: reports: no pertinent history Renal/: reports: no pertinent history Endocrine: reports: Diabetes Dermatology: reports: no pertinent history - Past Surgical History Past Surgical History: reports: Hysterectomy - Social History Alcohol: reports: Rare Drugs: reports: none - Exam General Appearance: NAD, awake alert Eye: PERRL, anicteric sclera ENT: normocephalic atraumatic, no oropharyngeal lesions Neck: supple, symmetric, no JVD, no thyromegaly Heart: RRR, no murmur, no gallops Respiratory: CTAB, no wheezes, no rales, no ronchi Gastrointestinal: soft, non-tender, non-distended, normal bowel sounds Extremities: no cyanosis, no clubbing Extremities - other findings: b/l knee swelling no erythema Skin: normal turgor, no lesions, no rashes Neurological: cranial nerve grossly intact, normal sensation to touch Musculoskeletal: normal tone, normal strength, no muscle wasting Psychiatric: normal affect, normal behavior, A&O x 3 Hospitalist Results - Labs Result Diagrams: 10/07/20 15:25 10/07/20 15:25 Lab results: WBC 18.3 thou/uL (4.8-10.8) H 01/23/21 15:25 Hgb 10.9 g/dL (12.0-16.0) L 10/07/20 15:25 Hct 35.6 % (36.0-47.0) L 10/07/20 15:25 MCV 72.8 fL (78.0-98.0) L 10/07/20 15:25 Plt Count 318 thou/uL (130-400) 10/07/20 15:25 Band Neuts % (Manual) 3 % (5-11) L 10/07/20 15:25 ESR Westergren Greater than 130 mm/hr (Less than 30) H 10/07/20 18:04 Sodium 134 mmol/L (136-145) L 10/07/20 15:25 Potassium 4.5 mmol/L (3.5-5.1) 10/07/20 15:25 Chloride 99 mmol/L (98-107) 10/07/20 15:25 Carbon Dioxide 20 mmol/L (23-31) L 10/07/20 15:25 BUN 53 mg/dL (9.8-20.1) H 10/07/20 15:25 Creatinine 4.74 mg/dL (0.6-1.1) H 10/07/20 15:25 Glucose 202 mg/dL (80-115) H 10/07/20 15:25 Lactic Acid 0.6 mmol/L (0.5-2.2) 10/07/20 18:04 Calcium 5.7 mg/dL (7.8-10.44) L* 10/07/20 15:25 Total Bilirubin 0.4 mg/dL (0.2-1.2) 10/07/20 15:25 AST 15 U/L (5-34) 10/07/20 15:25 ALT 7 U/L (8-55) L 10/07/20 15:25 Alkaline Phosphatase 68 U/L (40-110) 10/07/20 15:25 Creatine Kinase 501 U/L (29-168) H 10/07/20 18:04 Troponin I Less than 0.010 ng/mL (< 0.028) 10/07/20 20:34 C-Reactive Protein 16.85 mg/dL (= or < 0.5) H 10/07/20 18:04 Serum Total Protein 6.7 g/dL (5.8-8.1) 10/07/20 15:25 Albumin 3.2 g/dL (3.4-4.8) L 10/07/20 15:25 Urine Ketones Negative mg/dL (Negative) 10/07/20 20:00 Urine Blood Negative (Negative) 10/07/20 20:00 Urine Nitrite Negative (Negative) 10/07/20 20:00 Ur Leukocyte Esterase 25 Carrington/uL (Negative) A 10/07/20 20:00 Urine RBC 4-6 HPF (0-3) A 10/07/20 20:00 Urine WBC 11-20 HPF (0-3) A 10/07/20 20:00 Ur Squamous Epith Cells 0-3 HPF (0-3) 10/07/20 20:00 Urine Bacteria 2+ HPF (None Seen) A 10/07/20 20:00 Hospitalist H&P A/P - Problem (1) Chest pain Code(s): R07.9 - CHEST PAIN, UNSPECIFIED Status: Acute (2) Renal failure (ARF), acute on chronic Code(s): N17.9 - ACUTE KIDNEY FAILURE, UNSPECIFIED; N18.9 - CHRONIC KIDNEY DISEASE, UNSPECIFIED Status: Acute (3) Rheumatoid arthritis involving both ankles Code(s): M06.9 - RHEUMATOID ARTHRITIS, UNSPECIFIED Status: Acute (4) DM2 (diabetes mellitus, type 2) Status: Chronic Qualifiers: Diabetes mellitus complication status: with kidney complications Diabetes mellitus complication detail: with chronic kidney disease Chronic kidney disease stage: stage 3 (moderate) (5) Hypertension Code(s): I10 - ESSENTIAL (PRIMARY) HYPERTENSION Status: Chronic Qualifiers: Hypertension type: essential hypertension Qualified Code(s): I10 - Essential (primary) hypertension (6) Hypomagnesemia Code(s): E83.42 - HYPOMAGNESEMIA Status: Resolved (7) Leukocytosis Code(s): D72.829 - ELEVATED WHITE BLOOD CELL COUNT, UNSPECIFIED Status: Acute (8) Nausea and vomiting Code(s): R11.2 - NAUSEA WITH VOMITING, UNSPECIFIED Status: Acute - Plan Plan: case of an 65y/o female with the stated pmhx who present with chest pain and b/l heel pain chest pain - atypical pain, soreness in upper chest reproducible to palpation - ekg w/o st ischemic changes - initial troponin negative, will trend - cxr wnl rheumatoid arthritis - likely the cause of her lower ext joint pain - no hx of treatement - pt refers need an eye test before starting a medication she does not know the name of - will start renally adjusted methotrexate - will start low dose steroid for short term use - pain managemenet - esr crp elevated - was tap by ED results are not available at this time, but concern for septic arthritis is low leukocytosis - unclear etiology - likely secondary to RA - will cover w rocephin for prophylaxis - f/u cultures - u/a clean , cxr clean nausea+ vomiting - symptomatic tx prn tom over ckd - iv hydration 1xkg - increased creatinine and decreased gfr from previous visit - nephrology consulted - methotrexate can worsen renal function, monitor closely hypomagnesemia - will replace - f/u labs in am htn -continue home meds dm acc+ss
[2020-10-07] MEDS ORDERED: HumaLOG 300 UNITS/3 ML VIAL SC PRN (22:11)
[2020-10-07] MEDS: Morphine 4 MG/ML VIAL SLOW IVP PRN ×2 (22:11→22:15)
[2020-10-07] MEDS ORDERED: Dextrose 50% Abboject 50 ML SYRINGE SLOW IVP PRN (22:11)
[2020-10-07] MEDS ORDERED: Dextrose 5% in Water 1,000 ML IV PRN (22:11)
[2020-10-07] MEDS: HYDROcodone/Acetaminophen 5/325 mg Tablet PO PRN (22:14)
[2020-10-07] MEDS ORDERED: Methotrexate Sodium 2.5 MG TAB PO SCH (22:15)
[2020-10-07 23:03] LABS: Troponin I Less than 0.010 ng/mL (< 0.028)
[2020-10-07] MEDS: Sodium Chloride 0.9% 1,000 ML IV SCH (23:22)
[2020-10-08] MEDS: HYDROcodone/Acetaminophen 5/325 mg Tablet PO PRN ×3 (02:38→16:17)
[2020-10-08] MEDS ORDERED: Magnesium 2 GM/50 ML 2 GM in Premix Bag 1 BAG IVPB SCH (03:00)
[2020-10-08 05:10] LABS: Hemoglobin 11.3 g/dL (12.0-16.0); Lymphocytes 8 % (21-51); MDiff Complete? YES; Mean Corpuscular HGB CONC 29.9 g/dL (32.0-36.0); Mean Corpuscular Hemoglobin 22.1 pg (27.0-31.0); Mean Corpuscular Volume 73.9 fL (78.0-98.0); Mean Platelet Volume 9.3 fL (7.4-10.4); Monocytes 6 % (0-10); Neutrophil 86 % (42-75); Platelet Count 328 thou/uL (130-400); Platelet Morphology Comment Appears Adequate; RBC Morphology Normal; Red Blood Cell (RBC) Count 5.12 mill/uL (4.20-5.40)
[2020-10-08 05:14] LABS: ALT (SGPT) 8 U/L (8-55); AST (SGOT) 20 U/L (5-34); Albumin 3.2 g/dL (3.4-4.8); Alkaline Phosphatase 70 U/L (40-110); Anion Gap 22 mmol/L (10-20); BUN (Urea Nitrogen) 49 mg/dL (9.8-20.1); Bilirubin, Total 0.3 mg/dL (0.2-1.2); Calc. Creatinine Clearance 12 mL/min (70-130); Calcium 6.5 mg/dL (7.8-10.44); Carbon Dioxide 15 mmol/L (23-31); Chloride 104 mmol/L (98-107); Globulin 4.3 g/dL (2.4-3.5); Glucose 152 mg/dL (80-115); Magnesium 2.2 mg/dL (1.6-2.6); Potassium 3.9 mmol/L (3.5-5.1); Protein, Total 7.5 g/dL (5.8-8.1); Sodium 137 mmol/L (136-145)
[2020-10-08] MEDS: Labetalol HCl 100 MG/20 ML VIAL SLOW IVP PRN (06:05)
[2020-10-08] MEDS ORDERED: predniSONE 1 MG/ML ML PO SCH (09:00)
[2020-10-08] MEDS: Isosorbide Mononitrate 20 MG TAB PO SCH ×2 (10:55→21:05)
[2020-10-08] MEDS: Labetalol 100 MG TAB PO SCH ×2 (10:56→21:06)
[2020-10-08] MEDS: hydrALAZINE 25 MG TAB PO SCH ×2 (10:56→20:58)
[2020-10-08] MEDS: cloNIDine 0.3 MG TAB PO SCH ×2 (10:57→20:58)
[2020-10-08] MEDS: Folic Acid 1 MG TAB PO SCH (11:11)
[2020-10-08] MEDS: predniSONE 5 MG TAB PO SCH (11:11)
[2020-10-08] MEDS: Enoxaparin Sodium 30 MG/0.3 ML SYRINGE SC SCH (11:12)
[2020-10-08 11:29] LABS: SARS-CoV-2 PCR by NAA Not Detected (NotDetected)
--- NOTE | 2020-10-08 13:52 | PDOC.HOSPP ---
- Subjective Encounter Date: 10/08/20 Encounter Time: 11:10 Subjective: Patient denies any chest pain. She is more concerned about her knee pain. She is afebrile this morning her white count is elevated around 22,000. She prefers to take her own diabetic medications from home. Discussed with RN. - Objective Vital Signs & Weight: Vital Signs (12 hours) Temp Pulse Resp BP BP Pulse Ox 10/08/20 12:55 98.0 F 95 15 133/75 87 L 10/08/20 10:56 93 10/08/20 08:00 98.5 F 93 16 126/67 93 L 10/08/20 06:05 116 H 171/78 H 10/08/20 04:45 99 F 115 H 20 188/84 H 92 L Weight Weight 137 lb 11.2 oz Result Diagrams: 10/08/20 04:32 10/08/20 04:32 Additional Labs: Accuchecks 10/08/20 05:44 POC Glucose 178 H Hospitalist ROS - Medication Medications: Active Medications Generic Name Dose Route Start Last Admin Trade Name Freq PRN Reason Stop Dose Admin Hydrocodone Bitart/Acetaminophen 2 tab 10/07/20 21:59 10/08/20 11:06 Hydrocodone/Acetaminophen 5/325 Mg Tablet PO 2 tab Q4H PRN Administration Pain Clonidine 0.3 mg 10/08/20 09:00 10/08/20 10:57 Clonidine 0.3 Mg Tab PO Not Given BID SHO Enoxaparin Sodium 30 mg 10/08/20 09:00 10/08/20 11:12 Enoxaparin Sodium 30 Mg/0.3 Ml Syringe SC 30 mg 0900 SHO Administration Folic Acid 1 mg 10/08/20 09:00 10/08/20 11:11 Folic Acid 1 Mg Tab PO 1 mg DAILY SHO Administration Hydralazine HCl 100 mg 10/08/20 09:00 10/08/20 10:56 Hydralazine 25 Mg Tab PO Not Given TID SHO Ceftriaxone Sodium 1 gm/ 100 mls @ 200 mls/hr 10/07/20 22:00 10/07/20 23:22 Sodium Chloride IVPB 100 mls Q24HR SHO Administration Sodium Chloride 1,000 mls @ 60 mls/hr 10/07/20 22:15 10/07/20 23:22 Normal Saline 0.9% IV 1,000 mls .[id number] SHO Administration Isosorbide Mononitrate 40 mg 10/08/20 09:00 10/08/20 10:55 Isosorbide Mononitrate 20 Mg Tab PO Not Given TID SHO Labetalol HCl 400 mg 10/08/20 09:00 10/08/20 10:56 Labetalol 100 Mg Tab PO Not Given BID SHO Labetalol HCl 20 mg 10/08/20 05:10 10/08/20 06:05 Labetalol Hcl 100 Mg/20 Ml Vial SLOW IVP 4 ml Q4H PRN Administration SBP Greater Than 170 Methotrexate Sodium 2.5 mg 10/07/20 22:15 10/07/20 23:23 Methotrexate Sodium 2.5 Mg Tab PO 2.5 mg Q7D SHO Administration Prednisone 5 mg 10/08/20 09:00 10/08/20 11:11 Prednisone 5 Mg Tab PO 5 mg DAILY SHO Administration - Exam General Appearance: NAD, awake alert Eye: PERRL ENT: normocephalic atraumatic Neck: supple Heart: RRR, normal peripheral pulses Respiratory: CTAB, normal chest expansion Gastrointestinal: soft, normal bowel sounds Extremities - other findings: Right knee small Neurological: cranial nerve grossly intact, no focal deficits Psychiatric: A&O x 3 Hosp A/P - Plan Chest pain Code(s): R07.9 - CHEST PAIN, UNSPECIFIED Status: Acute (2) Renal failure (ARF), acute on chronic Code(s): N17.9 - ACUTE KIDNEY FAILURE, UNSPECIFIED; N18.9 - CHRONIC KIDNEY DISEASE, UNSPECIFIED Status: Acute (3) Rheumatoid arthritis involving both ankles Code(s): M06.9 - RHEUMATOID ARTHRITIS, UNSPECIFIED Status: Acute (4) DM2 (diabetes mellitus, type 2) Status: Chronic Qualifiers: Diabetes mellitus complication status: with kidney complications Diabetes mellitus complication detail: with chronic kidney disease Chronic kidney disease stage: stage 3 (moderate) (5) Hypertension Code(s): I10 - ESSENTIAL (PRIMARY) HYPERTENSION Status: Chronic Qualifiers: Hypertension type: essential hypertension Qualified Code(s): I10 - Essential (primary) hypertension (6) Hypomagnesemia Code(s): E83.42 - HYPOMAGNESEMIA Status: Resolved (7) Leukocytosis Code(s): D72.829 - ELEVATED WHITE BLOOD CELL COUNT, UNSPECIFIED Status: Acute (8) Nausea and vomiting Code(s): R11.2 - NAUSEA WITH VOMITING, UNSPECIFIED Status: Acute - Plan Plan: case of an 65y/o female with the stated pmhx who present with chest pain and b/l heel pain chest pain - atypical pain, soreness in upper chest reproducible to palpation - ekg w/o st ischemic changes -Troponins negative ruled out acute coronary syndrome. rheumatoid arthritis--status post synovial joint fluid aspiration on the right knee - likely the cause of her lower ext joint pain - no hx of treatement - pt refers need an eye test before starting a medication she does not know the name of - will start renally adjusted methotrexate - will start low dose steroid for short term use - pain managemenet -Both sed rate and CRP are elevated--- - was tapped by ED -Fluid study [place] 3335r RBCs around 37,000 neutrophils 73% did not see any bands; hazy color - synovial fluid culture off -many WBCs but no organisms so far. -Based on the fluid study does not appearseptic arthritis even though inflammat ory markers are quite high I will trend the inflammatory markers and follow the clinical course. -We will change the antibiotic to clindamycin to cover for anaerobes. leukocytosis -Possible inflammatory process - likely secondary to RA - will cover w rocephin for prophylaxis - u/a clean , cxr clean nausea+ vomiting - symptomatic tx prn tom over ckd - iv hydration 1xkg - increased creatinine and decreased gfr from previous visit - nephrology consulted - methotrexate can worsen renal function, monitor closely hypomagnesemia - will replace - f/u labs in am htn -continue home meds dm acc+ss Covid negative
[2020-10-08] MEDS ORDERED: Lidocaine 2% PF 5 ML VIAL ONE (15:53)
[2020-10-08] MEDS: Clindamycin/D5W 600 MG in Premix Bag 1 BAG IVPB SCH ×2 (16:05→21:12)
[2020-10-08] MEDS: Sodium Chloride 0.9% 1,000 ML IV SCH (16:20)
[2020-10-08] MEDS ORDERED: Dexamethasone 4 mg/ml Vial I-ARTICULR SCH (17:00)
--- NOTE | 2020-10-08 20:05 | CON ---
DATE OF CONSULTATION: 10/08/2020 HISTORY OF PRESENT ILLNESS: Ms. Roberts is a 65-year-old female who has a history of rheumatoid arthritis, hypertension, diabetes, stage 4 chronic kidney disease. The patient is being currently seen by a customer strategy manager who recently had her right shoulder injected with cortisone. She states that without history of trauma or increased activity, she began having pain in the right heel and then it quickly moved to her right knee. The patient presented to the emergency room, because of right knee pain. She denies any fever, chills, or any other infectious type process. The patient was brought [place] [address], hemoglobin 10.9. Her sedimentation rate was greater than 130. C-reactive protein 16.85. The emergency room physician adeel fluid from her knee and the synovial fluid showed 3000 white cells, 37,000 red cells, 122 on the synovial glucose. PHYSICAL EXAMINATION: VITAL SIGNS: When the patient was admitted, her temperature was 99.9. The patient has been afebrile for the last 12 hours. EXTREMITIES: On examination of the right knee, the patient has mild slight effusion in the knee. She was able to actively flex and extend the knee from 20-80 degrees. There is no erythema. There is no open wound. She is very tender to palpation. IMAGING: X-ray of the right knee shows significant osteoporosis. There is significant calcification in the femoral and popliteal artery. No significant arthritic changes. IMPRESSION: Severe flare up of rheumatoid arthritis of the right knee, does not appear to have any kind of infection since her white cell count and the synovial fluid was only 3000. She had normal glucose. PLAN: The patient has agreed to a cortisone shot. DESCRIPTION OF PROCEDURE: After prepping the right knee, the right knee joint was injected with 5 mL of 1% lidocaine and 2 mL of dexamethasone, which gives a total of 8 mg. I will examine the patient tomorrow and see how she is doing. Job ID: [id number]
[2020-10-08] MEDS: Atorvastatin Calcium 40 MG TAB PO SCH (20:57)
[2020-10-08] MEDS ORDERED: FLU VACC QS2020-21(65YR UP)/PF 240 MCG/0.7 ML SYRINGE IM ONE (21:00)
[2020-10-08] MEDS ORDERED: NIFEdipine XL 90 MG TAB PO SCH (21:00)
[2020-10-08] MEDS: diphenhydrAMINE 25 MG CAP PO PRN (21:00)
[2020-10-09] MEDS: Clindamycin/D5W 600 MG in Premix Bag 1 BAG IVPB SCH ×3 (05:23→20:56)
--- NOTE | 2020-10-09 06:30 | CON ---
DATE OF CONSULTATION: 10/08/2020 CONSULTING PHYSICIAN: Dr. Solis. REASON FOR CONSULTATION: Acute kidney injury. HISTORY OF PRESENT ILLNESS: This is a 65-year-old female with history of hypertension, diabetes and CKD, came to the hospital with heel pain and was found to have elevated creatinine. The patient does follow with Dr. Ortiz. No chest pain. No nausea or vomiting reported. PAST MEDICAL HISTORY: Positive for CKD, hypertension, diabetes, rheumatoid arthritis. PAST SURGICAL HISTORY: Hysterectomy. HOME MEDICATIONS: Reviewed. ALLERGIES: SULFA, CODEINE, CITRIC ACID, TRAMADOL. SOCIAL HISTORY: No smoking, alcohol, or illicit drug abuse. FAMILY HISTORY: No history of kidney disease. REVIEW OF SYSTEMS: The following complete review of systems was negative, unless otherwise mentioned in the HPI or below: Constitutional: Weight loss or gain, ability to conduct usual activities. Skin: Rash, itching. Eyes: Double vision, pain. ENT/Mouth: Nose bleeding, neck stiffness, pain, tenderness. Cardiovascular: Palpitations, dyspnea on exertion, orthopnea. Respiratory: Shortness of breath, wheezing, cough, hemoptysis, fever or night sweats. Gastrointestinal: Poor appetite, abdominal pain, heartburn, nausea, vomiting, constipation, or diarrhea. Genitourinary: Urgency, frequency, dysuria, nocturia. Musculoskeletal: Pain, swelling. Neurologic/Psychiatric: Anxiety, depression. Allergy/Immunologic: Skin rash, bleeding tendency. PHYSICAL EXAMINATION: GENERAL: Well-built female, in no apparent distress. VITAL SIGNS: Temperature 98.0, pulse 95, respiratory rate 18, blood pressure 133/75. HEENT: Atraumatic, normocephalic. Oral mucosa is moist. NECK: Supple. CVS: S1, S2. Rate and rhythm regular. RESPIRATORY: Clear. MUSCULOSKELETAL: No edema. DERMATOLOGIC: No skin rash. NEUROLOGIC: Alert and awake. PSYCHIATRIC: Mood and affect normal. LABORATORY DATA: Potassium 3.9, BUN is 49, creatinine is 4.6. Baseline creatinine is around 3.5, 3.6. ASSESSMENT AND PLAN: 1. Acute kidney injury on chronic kidney disease, stage 4 with worsening labs. No acute indication for dialysis. 2. Acidosis, seems to be chronic secondary to chronic kidney disease. 3. History of hypertension. 4. Edema, controlled. 5. Anemia of chronic disease. 6. No acute indication for dialysis. Dr. Suni to resume care tomorrow. Thank you for the consult. Job ID: [id number]
[2020-10-09] MEDS: Sodium Chloride 0.9% 1,000 ML IV SCH (08:28)
[2020-10-09] MEDS: Enoxaparin Sodium 30 MG/0.3 ML SYRINGE SC SCH (08:32)
[2020-10-09] MEDS: Folic Acid 1 MG TAB PO SCH (08:32)
[2020-10-09] MEDS: cloNIDine 0.3 MG TAB PO SCH (08:32)
[2020-10-09] MEDS: hydrALAZINE 25 MG TAB PO SCH ×3 (08:32→20:33)
[2020-10-09] MEDS: Isosorbide Mononitrate 20 MG TAB PO SCH (08:33)
[2020-10-09] MEDS: Labetalol 100 MG TAB PO SCH ×2 (08:33→20:35)
[2020-10-09] MEDS: predniSONE 5 MG TAB PO SCH (08:34)
[2020-10-09] MEDS: HYDROcodone/Acetaminophen 5/325 mg Tablet PO PRN ×2 (08:45→14:19)
[2020-10-09 09:50] LABS: Hemoglobin 9.2 g/dL (12.0-16.0); Mean Corpuscular HGB CONC 29.5 g/dL (32.0-36.0); Mean Corpuscular Volume 74.6 fL (78.0-98.0); Platelet Count 317 thou/uL (130-400); RBC Distribution Width 15.7 % (11.5-14.5); Red Blood Cell (RBC) Count 4.19 mill/uL (4.20-5.40); White Blood Cell (WBC) Count 17.7 thou/uL (4.8-10.8)
[2020-10-09 11:04] LABS: Band 6 % (5-11); Hypersemented Neutrophil SLIGHT; Hypochromia SLIGHT = 6-15 cells (100X) (0-5/hpf); MDiff Complete? YES; Microcytosis SLIGHT = 6-15 cells (100X) (0-5/hpf); Monocytes 2 % (0-10); Neutrophil 92 % (42-75); Platelet Morphology Comment Appears Adequate; Polychromasia SLIGHT = 2-3 cells (100X) (0-2/hpf)
[2020-10-09 11:05] LABS: Anion Gap 23 mmol/L (10-20); BUN (Urea Nitrogen) 64 mg/dL (9.8-20.1); Calc. Creatinine Clearance 10 mL/min (70-130); Calcium 6.5 mg/dL (7.8-10.44); Carbon Dioxide 11 mmol/L (23-31); Chloride 101 mmol/L (98-107); Glucose 391 mg/dL (80-115); Potassium 5.1 mmol/L (3.5-5.1); Sodium 130 mmol/L (136-145)
[2020-10-09] MEDS ORDERED: Dextrose 50% Abboject 50 ML SYRINGE SLOW IVP PRN (13:36)
[2020-10-09] MEDS ORDERED: Dextrose 5% in Water 1,000 ML IV PRN (13:36)
[2020-10-09] MEDS ORDERED: hydrALAZINE 20 MG/ML VIAL SLOW IVP PRN (13:44)
--- NOTE | 2020-10-09 13:46 | PDOC.HOSPP ---
- Subjective Encounter Date: 10/09/20 Encounter Time: 11:15 Subjective: Patient sitting in the toilet bowl. The spouse at bedside. Plan explained to her. Dr. Ortiz nephrology also followed her this morning. Status post steroid injection on the right knee for rheumatoid arthritis flareup. - Objective Vital Signs & Weight: Vital Signs (12 hours) Temp Pulse Resp BP Pulse Ox 10/09/20 11:42 97.6 F 85 16 112/59 L 97 10/09/20 08:20 97.7 F 80 16 115/62 96 10/09/20 03:49 97.2 F L 79 17 115/55 L 95 Weight Weight 137 lb 11.2 oz I&O: 10/08/20 10/09/20 10/10/20 06:59 06:59 06:59 Intake Total 870 Output Total 1150 Balance -280 Result Diagrams: 10/09/20 09:29 10/09/20 10:37 Additional Labs: Accuchecks 10/09/20 10/09/20 10/08/20 08:48 06:10 21:02 POC Glucose 346 H 357 H 238 H 10/08/20 16:39 POC Glucose 164 H Hospitalist ROS - Medication Medications: Active Medications Generic Name Dose Route Start Last Admin Trade Name Freq PRN Reason Stop Dose Admin Atorvastatin Calcium 40 mg 10/08/20 21:00 10/08/20 20:57 Atorvastatin Calcium 40 Mg Tab PO Not Given HS SHO Clonidine 0.3 mg 10/08/20 09:00 10/09/20 08:32 Clonidine 0.3 Mg Tab PO Not Given BID SHO Diphenhydramine HCl 25 mg 10/08/20 20:23 10/08/20 21:00 Diphenhydramine 25 Mg Cap PO 25 mg HS PRN Administration Itching & Insomnia Enoxaparin Sodium 30 mg 10/08/20 09:00 10/09/20 08:32 Enoxaparin Sodium 30 Mg/0.3 Ml Syringe SC Not Given 0900 SHO Folic Acid 1 mg 10/08/20 09:00 10/09/20 08:32 Folic Acid 1 Mg Tab PO Not Given DAILY SHO Hydralazine HCl 100 mg 10/08/20 09:00 10/09/20 08:32 Hydralazine 25 Mg Tab PO Not Given TID SHO Sodium Chloride 1,000 mls @ 60 mls/hr 10/07/20 22:15 10/09/20 08:28 Normal Saline 0.9% IV 1,000 mls .[id number] SHO Administration Clindamycin Phosphate/Dextrose 50 mls @ 100 mls/hr 10/08/20 14:00 10/09/20 05:23 600 mg/ Device IVPB 50 mls Q8HR SHO Administration Isosorbide Mononitrate 40 mg 10/08/20 09:00 10/09/20 08:33 Isosorbide Mononitrate 20 Mg Tab PO Not Given TID SHO Labetalol HCl 400 mg 10/08/20 09:00 10/09/20 08:33 Labetalol 100 Mg Tab PO Not Given BID SHO Labetalol HCl 20 mg 10/08/20 05:10 10/08/20 06:05 Labetalol Hcl 100 Mg/20 Ml Vial SLOW IVP 4 ml Q4H PRN Administration SBP Greater Than 170 Methotrexate Sodium 2.5 mg 10/07/20 22:15 10/07/20 23:23 Methotrexate Sodium 2.5 Mg Tab PO 2.5 mg Q7D SHO Administration Nifedipine 90 mg 10/08/20 21:00 10/08/20 21:00 Nifedipine Xl 90 Mg Tab PO Not Given HS SHO Prednisone 5 mg 10/08/20 09:00 10/09/20 08:34 Prednisone 5 Mg Tab PO 5 mg DAILY SHO Administration - Exam General Appearance: NAD, awake alert Eye: PERRL ENT: normocephalic atraumatic Neck: supple Heart: RRR, normal peripheral pulses Respiratory: CTAB, normal chest expansion Gastrointestinal: soft, normal bowel sounds Extremities - other findings: Right knee - dressing Neurological: cranial nerve grossly intact, no focal deficits Musculoskeletal: generalized weakness Psychiatric: normal affect, normal behavior, A&O x 3 Hosp A/P - Plan Chest pain Code(s): R07.9 - CHEST PAIN, UNSPECIFIED Status: Acute (2) Renal failure (ARF), acute on chronic Code(s): N17.9 - ACUTE KIDNEY FAILURE, UNSPECIFIED; N18.9 - CHRONIC KIDNEY DISEASE, UNSPECIFIED Status: Acute (3) Rheumatoid arthritis involving both ankles Code(s): M06.9 - RHEUMATOID ARTHRITIS, UNSPECIFIED Status: Acute (4) DM2 (diabetes mellitus, type 2) Status: Chronic Qualifiers: Diabetes mellitus complication status: with kidney complications Diabetes mellitus complication detail: with chronic kidney disease Chronic kidney disease stage: stage 3 (moderate) (5) Hypertension Code(s): I10 - ESSENTIAL (PRIMARY) HYPERTENSION Status: Chronic Qualifiers: Hypertension type: essential hypertension Qualified Code(s): I10 - Essential (primary) hypertension (6) Hypomagnesemia Code(s): E83.42 - HYPOMAGNESEMIA Status: Resolved (7) Leukocytosis Code(s): D72.829 - ELEVATED WHITE BLOOD CELL COUNT, UNSPECIFIED Status: Acute (8) Nausea and vomiting Code(s): R11.2 - NAUSEA WITH VOMITING, UNSPECIFIED Status: Acute - Plan Plan: case of an 65y/o female with the stated pmhx who present with chest pain and b/l heel pain chest pain - atypical pain, soreness in upper chest reproducible to palpation - ekg w/o st ischemic changes -Troponins negative ruled out acute coronary syndrome. rheumatoid arthritis--status post synovial joint fluid aspiration on the right knee -She follows with [facility] Dr[facility] Krystina Blakely outpatient - pt refers need an eye test before starting a medication she does not know the name of - will start renally adjusted methotrexate - will start low dose steroid for short term use -Both sed rate and CRP are elevated--- - was tapped by ED -Fluid study [place] 3335r RBCs around 37,000 neutrophils 73% did not see any bands; hazy color - synovial fluid culture off -many WBCs but no organisms so far. -Based on the fluid study does not appearseptic arthritis even though inflammatory markers are quite high I will trend the inflammatory markers and follow the clinical course. -We will change the antibiotic to clindamycin to cover for anaerobes-------- ------> stop this Clinda on . leukocytosis----trending down Rheumatoid arthritis flareup Leukocytosis due to inflammatory process with underlying history of rheumatoid arthritis - - will cover w rocephin for prophylaxis - u/a clean , cxr clean nausea+ vomiting - symptomatic tx prn tom over ckd - iv hydration 1xkg - increased creatinine and decreased gfr from previous visit - nephrology following with - methotrexate can worsen renal function, monitor closely hypomagnesemia - will replace - f/u labs in am Hyperglycemia possibly due to the steroid -She is not on any home diabetic medications -We will get A1c and use the sliding scale insulin for now. Mild hyponatremia -Gentle fluid and repeat the panel htn -continue home meds dm acc+ss 25th Her blood pressure runs on the low side -I adjusted several of her home blood pressure medications -Need some gentle hydration to improve her sodium level -She was also started on sodium bicarb [address] Culp -Methotrexate is 2.5 mg every 7 days renally dosed Covid negative
[2020-10-09] MEDS: Sodium Bicarbonate Tab 325 MG TAB PO SCH ×2 (14:18→20:37)
[2020-10-09] MEDS: HumaLOG 300 UNITS/3 ML VIAL SC PRN (18:29)
--- NOTE | 2020-10-09 19:10 | PRG ---
DATE OF SERVICE: 10/09/2020 SUBJECTIVE: A 65-year-old female being seen for acute kidney injury. The patient denied nausea, vomiting, or chest pain. PHYSICAL EXAMINATION: General: The patient is awake and alert. Vital Signs: Afebrile, pulse 85, breathing at 16, blood pressure 115/59. HEENT: Head normocephalic and atraumatic. Eyes intact, no ulcers. Nose intact, no ulcers. Ears intact, no ulcers. Neck: Supple. No JVD. Chest: Symmetrical and clear. Cardiovascular: Shows S1 and S2, no rub, no murmur. Gastrointestinal: Abdomen is soft, bowel sounds positive. Extremities: Show no edema or ulcers. Skin: Shows no rash or petechiae. Musculoskeletal: Shows no joint swelling or stiffness. Genitourinary: Shows no Hodges or CVA tenderness. Neurologic: Motor intact. Cranial nerves intact. LAB: Reviewed. ASSESSMENT: 1. Chronic kidney disease, stage 5, stable. 2. Hypertension, stable. 3. Anemia, stable. 4. Metabolic acidosis. Start the patient on sodium bicarbonate. Medication based on GFR, appropriate. Job ID: [id number]
[2020-10-09] MEDS: Atorvastatin Calcium 40 MG TAB PO SCH (20:32)
[2020-10-09] MEDS: cloNIDine 0.1 MG TAB PO SCH (20:33)
[2020-10-09] MEDS: NIFEdipine XL 60 MG TAB PO SCH (20:35)
[2020-10-09] MEDS: diphenhydrAMINE 25 MG CAP PO PRN (20:56)
[2020-10-09] MEDS ORDERED: Mag-Al 1200 mg/1200 mg/30 ML UDCUP PO SCH (23:15)
[2020-10-10] MEDS: Isosorbide Mononitrate 20 MG TAB PO SCH ×3 (00:06→21:46)
[2020-10-10] MEDS ORDERED: diphenhydrAMINE 50 MG/ML VIAL IVP SCH (01:45)
[2020-10-10 04:38] LABS: Hemoglobin A1c 6.6 % (4.0-6.0)
[2020-10-10] MEDS ORDERED: traZODone HCl 50 MG TAB PO SCH (04:45)
[2020-10-10 04:52] LABS: Anion Gap 22 mmol/L (10-20); BUN (Urea Nitrogen) 72 mg/dL (9.8-20.1); Calc. Creatinine Clearance 9 mL/min (70-130); Calcium 6.3 mg/dL (7.8-10.44); Carbon Dioxide 11 mmol/L (23-31); Chloride 99 mmol/L (98-107); Glucose 154 mg/dL (80-115); Potassium 5.4 mmol/L (3.5-5.1); Sodium 127 mmol/L (136-145)
[2020-10-10] MEDS: Clindamycin/D5W 600 MG in Premix Bag 1 BAG IVPB SCH ×3 (05:02→20:56)
[2020-10-10] MEDS: Benzonatate 100 MG CAP PO PRN ×2 (05:02→10:09)
[2020-10-10] MEDS: Sodium Chloride 0.9% 1,000 ML IV SCH (07:48)
[2020-10-10] MEDS: Folic Acid 1 MG TAB PO SCH (07:50)
[2020-10-10] MEDS: Enoxaparin Sodium 30 MG/0.3 ML SYRINGE SC SCH (07:50)
[2020-10-10] MEDS: Sodium Bicarbonate Tab 325 MG TAB PO SCH ×3 (08:01→20:56)
[2020-10-10] MEDS: Labetalol 100 MG TAB PO SCH ×2 (08:03→21:46)
[2020-10-10] MEDS: cloNIDine 0.1 MG TAB PO SCH ×2 (08:03→21:45)
[2020-10-10] MEDS: hydrALAZINE 25 MG TAB PO SCH ×3 (08:03→21:46)
[2020-10-10] MEDS: predniSONE 5 MG TAB PO SCH (08:03)
[2020-10-10] MEDS ORDERED: Sodium Bicarb 50 MEQ/50 ML Abboject 8.4% SYRINGE IVP SCH (10:00)
--- NOTE | 2020-10-10 11:42 | EKG ---
Test Reason : STAT Blood Pressure : / mmHG Vent. Rate : 120 BPM Atrial Rate : 120 BPM P-R Int : 166 ms QRS Dur : 064 ms QT Int : 316 ms P-R-T Axes : 050 035 064 degrees QTc Int : 446 ms Sinus tachycardia Otherwise normal ECG Confirmed by BO LOPEZ ([id number]) on 10/10/2020 11:41:46 AM Referred By: LIDIA PETERSEN Confirmed By:BO LOPEZ
[2020-10-10] MEDS ORDERED: EPOETIN ALFA-EPBX (ESRD) 10,000 UNIT/ML VIAL SC SCH (11:45)
[2020-10-10] MEDS: diphenhydrAMINE 50 MG/ML VIAL IVP PRN ×2 (12:26→20:59)
--- NOTE | 2020-10-10 12:30 | PRG ---
DATE OF SERVICE: 10/10/2020 SUBJECTIVE: A 65-year-old female, being seen for CKD stage 5. The patient denied any nausea, vomiting, or chest pain. PHYSICAL EXAMINATION: GENERAL: The patient is awake and alert. VITAL SIGNS: Afebrile, pulse 96, breathing at 16, blood pressure 136/67. HEENT: Head normocephalic and atraumatic. Eyes intact, no ulcers. Nose intact, no ulcers. Ears intact, no ulcers. NECK: Supple. No JVD. CHEST: Symmetrical and clear. CARDIOVASCULAR: Shows S1 and S2, no rub, no murmur. GASTROINTESTINAL: Abdomen is soft, bowel sounds positive. EXTREMITIES: Show no edema or ulcers. SKIN: Shows no rash or petechiae. MUSCULOSKELETAL: Shows no joint swelling or stiffness. GENITOURINARY: Shows no Hodges or CVA tenderness. NEUROLOGIC: Motor intact. Cranial nerves intact. LABORATORY DATA: Hemoglobin 9.2. Potassium is pending. ASSESSMENT AND PLAN: 1. Chronic kidney disease stage 5 with acute kidney injury, progressive chronic kidney disease. Discussed risks versus benefits of dialysis, the patient declined. 2. Metabolic acidosis. Started the patient on sodium bicarbonate yesterday. I have given sodium bicarbonate today. We will recheck labs today. 3. Anemia, stable. Medication based on GFR appropriate. If the patient changes her mind about dialysis, she let me know. Job ID: [id number]
--- NOTE | 2020-10-10 13:10 | PDOC.HOSPP ---
- Subjective Encounter Date: 10/10/20 Encounter Time: 10:20 Subjective: Patient doing well she has no complaints this morning. I did extensive history regarding her rheumatoid arthritis. She was hospitalized in June for Covid pneumonia prior to that she was seen by collections analyst Dr. Krystina Manzanares and Cuauhtemoc and been told that she has a touch of rheumatoid arthritis. She is not taking any methotrexate. This has been verified I went through all her medication list She is on clonidine labetalol hydralazine B12 glipizide Lasix Lipitor and she takes epoetin shot every 2 weeks for anemia which she will be getting tomorrow. Her sodium is dropped to 127 tried gentle hydration but she gets volume overload due to end-stage kidney disease. So will try to do a fluid restriction. Her TSH in the random cortisol level in the normal range - Objective Vital Signs & Weight: Vital Signs (12 hours) Temp Pulse Resp BP Pulse Ox 10/10/20 11:34 97.8 F 95 16 143/76 H 94 L 10/10/20 07:35 98.4 F 96 18 136/67 94 L 10/10/20 04:00 97.7 F 81 18 112/68 94 L Weight Weight 137 lb 11.2 oz I&O: 10/09/20 10/10/20 10/11/20 06:59 06:59 06:59 Intake Total 870 1200 Output Total 1150 250 Balance -280 950 Result Diagrams: 10/09/20 09:29 10/10/20 04:05 Hospitalist ROS - Medication Medications: Active Medications Generic Name Dose Route Start Last Admin Trade Name Freq PRN Reason Stop Dose Admin Hydrocodone Bitart/Acetaminophen 2 tab 10/09/20 10:23 10/09/20 14:19 Hydrocodone/Acetaminophen 5/325 Mg Tablet PO 2 tab Q4H PRN Administration Moderate to Severe Pain (6-10) Atorvastatin Calcium 40 mg 10/08/20 21:00 10/09/20 20:32 Atorvastatin Calcium 40 Mg Tab PO Not Given HS SHO Benzonatate 100 mg 10/10/20 04:36 10/10/20 10:09 Benzonatate 100 Mg Cap PO 100 mg TIDPRN PRN Administration Cough Calcium Carbonate 1,000 mg 10/07/20 22:03 10/09/20 22:31 Calcium Carbonate 500 Mg Chewtab PO 1,000 mg Q4H PRN Administration Heartburn or Indigestion Clonidine 0.1 mg 10/09/20 21:00 10/10/20 08:03 Clonidine 0.1 Mg Tab PO Not Given BID [facility] Diphenhydramine HCl 12.5 mg 10/10/20 11:58 10/10/20 12:26 Diphenhydramine 50 Mg/Ml Vial IVP 12.5 mg Q6H PRN Administration Itching Enoxaparin Sodium 30 mg 10/08/20 09:00 10/10/20 07:50 Enoxaparin Sodium 30 Mg/0.3 Ml Syringe SC Not Given 0900 [facility] Epoetin Charlie-epbx 10,000 unit 10/10/20 11:45 10/10/20 12:26 Epoetin Charlie-Epbx (Esrd) 10,000 Unit/Ml Vial SC 10/10/20 15:00 10,000 unit NOW SHO Administration Folic Acid 1 mg 10/08/20 09:00 10/10/20 07:50 Folic Acid 1 Mg Tab PO Not Given DAILY [facility] Hydralazine HCl 100 mg 10/08/20 09:00 10/10/20 08:03 Hydralazine 25 Mg Tab PO Not Given TID [facility] Clindamycin Phosphate/Dextrose 50 mls @ 100 mls/hr 10/08/20 14:00 10/10/20 05:02 600 mg/ Device IVPB 50 mls Q8HR SHO Administration Insulin Human Lispro 0 units 10/09/20 13:36 10/09/20 18:29 Humalog 300 Units/3 Ml Vial SC 6 unit .MODERATE SLIDING SC PRN Administration Moderate Correctional Scale Isosorbide Mononitrate 20 mg 10/09/20 21:00 10/10/20 08:03 Isosorbide Mononitrate 20 Mg Tab PO Not Given BID [facility] Labetalol HCl 400 mg 10/08/20 09:00 10/10/20 08:03 Labetalol 100 Mg Tab PO Not Given BID [facility] Labetalol HCl 20 mg 10/08/20 05:10 10/08/20 06:05 Labetalol Hcl 100 Mg/20 Ml Vial SLOW IVP 4 ml Q4H PRN Administration SBP Greater Than 170 Methotrexate Sodium 2.5 mg 10/07/20 22:15 10/07/20 23:23 Methotrexate Sodium 2.5 Mg Tab PO 2.5 mg Q7D SHO Administration Nifedipine 60 mg 10/09/20 21:00 10/09/20 20:35 Nifedipine Xl 60 Mg Tab PO Not Given HS SHO Prednisone 5 mg 10/08/20 09:00 10/10/20 08:03 Prednisone 5 Mg Tab PO Not Given DAILY SHO Sodium Bicarbonate 975 mg 10/09/20 15:00 10/10/20 08:01 Sodium Bicarbonate Tab 325 Mg Tab PO 975 mg TID SHO Administration Sodium Bicarbonate 50 meq 10/10/20 10:00 10/10/20 10:09 Sodium Bicarb 50 Meq/50 Ml Abboject 8.4% Syringe IVP 10/10/20 14:00 50 meq NOW SHO Administration Hospitalist Exam Vitals: Vital Signs (12 hours) Temp Pulse Resp BP Pulse Ox 10/10/20 11:34 97.8 F 95 16 143/76 H 94 L 10/10/20 07:35 98.4 F 96 18 136/67 94 L 10/10/20 04:00 97.7 F 81 18 112/68 94 L Weight Weight 137 lb 11.2 oz General Appearance: NAD, awake alert Eye: PERRL ENT: normocephalic atraumatic Neck: supple Heart: RRR Respiratory: CTAB, normal chest expansion Gastrointestinal: soft, normal bowel sounds Neurological: cranial nerve grossly intact, no focal deficits Psychiatric: A&O x 3 Hosp A/P - Plan Chest pain Code(s): R07.9 - CHEST PAIN, UNSPECIFIED Status: Acute (2) Renal failure (ARF), acute on chronic Code(s): N17.9 - ACUTE KIDNEY FAILURE, UNSPECIFIED; N18.9 - CHRONIC KIDNEY DISEASE, UNSPECIFIED Status: Acute (3) Rheumatoid arthritis involving both ankles Code(s): M06.9 - RHEUMATOID ARTHRITIS, UNSPECIFIED Status: Acute (4) DM2 (diabetes mellitus, type 2) Status: Chronic Qualifiers: Diabetes mellitus complication status: with kidney complications Diabetes mellitus complication detail: with chronic kidney disease Chronic kidney disease stage: stage 3 (moderate) (5) Hypertension Code(s): I10 - ESSENTIAL (PRIMARY) HYPERTENSION Status: Chronic Qualifiers: Hypertension type: essential hypertension Qualified Code(s): I10 - Essential (primary) hypertension (6) Hypomagnesemia Code(s): E83.42 - HYPOMAGNESEMIA Status: Resolved (7) Leukocytosis Code(s): D72.829 - ELEVATED WHITE BLOOD CELL COUNT, UNSPECIFIED Status: Acute (8) Nausea and vomiting Code(s): R11.2 - NAUSEA WITH VOMITING, UNSPECIFIED Status: Acute - Plan Plan: case of an 65y/o female with the stated pmhx who present with chest pain and b/l heel pain chest pain - atypical pain, soreness in upper chest reproducible to palpation - ekg w/o st ischemic changes -Troponins negative ruled out acute coronary syndrome. rheumatoid arthritis--status post synovial joint fluid aspiration on the right knee -She follows with [employer] supervisor Dr. Krystina Blakely outpatient - pt refers need an eye test before starting a medication she does not know the name of - will start renally adjusted methotrexate - will start low dose steroid for short term use -Both sed rate and CRP are elevated--- - was tapped by ED -Fluid study [place] 3335r RBCs around 37,000 neutrophils 73% did not see any bands; hazy color - synovial fluid culture off -many WBCs but no organisms so far. -Based on the fluid study does not appearseptic arthritis even though inflammatory markers are quite high I will trend the inflammatory markers and follow the clinical course. -We will change the antibiotic to clindamycin to cover for anaerobes--------------> stop this Clinda on . leukocytosis----trending down Rheumatoid arthritis flareup Leukocytosis due to inflammatory process with underlying history of rheumatoid arthritis - - will cover w rocephin for prophylaxis - u/a clean , cxr clean nausea+ vomiting - symptomatic tx prn tom over ckd - iv hydration 1xkg - increased creatinine and decreased gfr from previous visit - nephrology following with - methotrexate can worsen renal function, monitor closely hypomagnesemia - will replace - f/u labs in am Hyperglycemia possibly due to the steroid -She is not on any home diabetic medications -We will get A1c and use the sliding scale insulin for now. Mild hyponatremia -Gentle fluid and repeat the panel htn -continue home meds dm acc+ss 25th Her blood pressure runs on the low side -I adjusted several of her home blood pressure medications -Need some gentle hydration to improve her sodium level -She was also started on sodium bicarb [address] Culp -Methotrexate is 2.5 mg every 7 days renally dosed Covid negative She was hospitalized in June for Covid pneumonia prior to that she was seen by collections analyst Dr. Krystina Manzanares and Cuauhtemoc and been told that she has a touch of rheumatoid arthritis. She is not taking any methotrexate. This has been verified I went through all her medication list She is on clonidine labetalol hydralazine B12 glipizide Lasix Lipitor and she takes epoetin shot every 2 weeks for anemia which she will be getting tomorrow. Her sodium is dropped to 127 tried gentle hydration but she gets volume overload due to end-stage kidney disease. So will try to do a fluid restriction. Her TSH in the random cortisol level in the normal range Steroid-induced hyperglycemia We will go along with scheduled on the sliding scale insulin. Her A1c is 6.6 only Does not need any oral hypoglycemic drugs at least at this time. patient is not on any rheumatological DMARD she never been on methotrexate Misleading information during the admission time. I have discontinued the methotrexate
[2020-10-10] MEDS: Atorvastatin Calcium 40 MG TAB PO SCH (21:45)
[2020-10-10] MEDS: NIFEdipine XL 60 MG TAB PO SCH (21:46)
[2020-10-11 04:25] LABS: #Basophils 0.1 thou/uL (0.0-0.2); #Eosinphils 0.2 thou/uL (0.0-0.7); #Lymphocytes 1.1 thou/uL (1.20-3.40); #Monocytes 0.3 thou/uL (0.11-0.59); #Neutrophils 8.5 thou/uL (1.40-6.50); %Basophils 0.7 % (0.0-1.0); %Eosinophils 1.7 % (0.0-10.0); %Lymphocytes 10.8 % (21.0-51.0); %Neutrophils 83.8 % (42.0-75.0); Hemoglobin 9.3 g/dL (12.0-16.0); Mean Corpuscular HGB CONC 32.3 g/dL (32.0-36.0); Mean Corpuscular Hemoglobin 23.7 pg (27.0-31.0); Mean Corpuscular Volume 73.5 fL (78.0-98.0); Mean Platelet Volume 9.1 fL (7.4-10.4); Platelet Count 339 thou/uL (130-400); Red Blood Cell (RBC) Count 3.92 mill/uL (4.20-5.40); White Blood Cell (WBC) Count 10.2 thou/uL (4.8-10.8)
[2020-10-11] MEDS: HYDROcodone/Acetaminophen 5/325 mg Tablet PO PRN ×2 (04:28→17:47)
[2020-10-11] MEDS: Benzonatate 100 MG CAP PO PRN (04:30)
[2020-10-11] MEDS: Cepastat Lozenges 1 LOZ PO PRN ×4 (04:59→20:29)
[2020-10-11] MEDS: Clindamycin/D5W 600 MG in Premix Bag 1 BAG IVPB SCH ×3 (04:59→20:28)
[2020-10-11 08:48] LABS: Potassium 5.4 mmol/L (3.5-5.1); Sodium 132 mmol/L (136-145)
[2020-10-11 08:49] LABS: Anion Gap 23 mmol/L (10-20); BUN (Urea Nitrogen) 79 mg/dL (9.8-20.1); Calc. Creatinine Clearance 8 mL/min (70-130); Carbon Dioxide 13 mmol/L (23-31); Chloride 101 mmol/L (98-107); Glucose 101 mg/dL (80-115)
[2020-10-11] MEDS: Sodium Bicarbonate Tab 325 MG TAB PO SCH ×3 (08:57→20:28)
[2020-10-11] MEDS: cloNIDine 0.1 MG TAB PO SCH ×2 (09:00→22:14)
[2020-10-11] MEDS: hydrALAZINE 25 MG TAB PO SCH ×3 (09:00→22:14)
[2020-10-11] MEDS: Folic Acid 1 MG TAB PO SCH (09:00)
[2020-10-11] MEDS: Enoxaparin Sodium 30 MG/0.3 ML SYRINGE SC SCH (09:00)
[2020-10-11] MEDS: predniSONE 5 MG TAB PO SCH (09:01)
[2020-10-11] MEDS: Labetalol 100 MG TAB PO SCH ×2 (09:01→22:15)
[2020-10-11] MEDS: Isosorbide Mononitrate 20 MG TAB PO SCH ×2 (09:01→22:15)
[2020-10-11 09:06] LABS: Calcium 5.9 mg/dL (7.8-10.44)
[2020-10-11] MEDS ORDERED: Sodium Bicarb 50 MEQ/50 ML Abboject 8.4% SYRINGE IVP SCH (09:15)
[2020-10-11] MEDS ORDERED: Calcium Gluc 4.6 MEQ/10 ML (100 MG/ML) SLOW IVP SCH (09:18)
--- NOTE | 2020-10-11 09:57 | PRG ---
DATE OF SERVICE: 10/11/2020 SUBJECTIVE: A 65-year-old female being seen for acute kidney injury with progressive CKD. The patient denied any nausea, vomiting, or chest pain. PHYSICAL EXAMINATION: GENERAL: The patient is awake and alert. VITAL SIGNS: Afebrile, pulse 90, breathing at 16, blood pressure 130/60. HEENT: Head normocephalic and atraumatic. Eyes intact, no ulcers. Nose intact, no ulcers. Ears intact, no ulcers. NECK: Supple. No JVD. CHEST: Symmetrical and clear. CARDIOVASCULAR: Shows S1 and S2, no rub, no murmur. GASTROINTESTINAL: Abdomen is soft, bowel sounds positive. EXTREMITIES: Show no edema or ulcers. SKIN: Shows no rash or petechiae. MUSCULOSKELETAL: Shows no joint swelling or stiffness. GENITOURINARY: Shows no Hodges or CVA tenderness. NEUROLOGIC: Motor intact. Cranial nerves intact. LABORATORY DATA: Labs show potassium 5.4, bicarb 13. ASSESSMENT AND PLAN: 1. Chronic kidney disease, stage 5 with progressive hyperkalemia and acidosis. Discussed risks and versus benefits of dialysis. The patient declined. 2. Anemia, stable. 3. Hyperkalemia . 4. Metabolic acidosis. 5. Medication based on GFR appropriate. Risks versus benefits of dialysis were discussed. If the patient changes mind, we will offer renal replacement therapy. Job ID: [id number]
[2020-10-11 12:51] LABS: SARS-CoV-2 PCR by NAA Not Detected (NotDetected)
--- NOTE | 2020-10-11 14:08 | PDOC.HOSPP ---
- Subjective Encounter Date: 10/11/20 Encounter Time: 10:20 Subjective: Patient is little upset as she may have to undergo plan for dialysis. She has ongoing electrolyte abnormalities. Cannot give her much fluid due to end-stage renal disease. She is on fluid restriction. Sodium is improved however her calcium is very low magnesium in the normal range. - Objective Vital Signs & Weight: Vital Signs (12 hours) Temp Pulse Resp BP Pulse Ox 10/11/20 11:32 97.9 F 91 16 159/74 H 98 10/11/20 07:35 98.2 F 90 16 131/63 97 10/11/20 04:00 98.3 F 96 18 138/67 93 L Weight Weight 137 lb 11.2 oz I&O: 10/10/20 10/11/20 10/12/20 06:59 06:59 06:59 Intake Total 2330 Output Total 850 Balance 1480 Result Diagrams: 10/11/20 04:05 10/11/20 04:04 Hospitalist ROS - Medication Medications: Active Medications Generic Name Dose Route Start Last Admin Trade Name Freq PRN Reason Stop Dose Admin Hydrocodone Bitart/Acetaminophen 2 tab 10/09/20 10:23 10/11/20 04:28 Hydrocodone/Acetaminophen 5/325 Mg Tablet PO 2 tab Q4H PRN Administration Moderate to Severe Pain (6-10) Atorvastatin Calcium 40 mg 10/08/20 21:00 10/10/20 21:45 Atorvastatin Calcium 40 Mg Tab PO Not Given HS SHO Benzonatate 100 mg 10/10/20 04:36 10/11/20 04:30 Benzonatate 100 Mg Cap PO 100 mg TIDPRN PRN Administration Cough Clonidine 0.1 mg 10/09/20 21:00 10/11/20 09:00 Clonidine 0.1 Mg Tab PO Not Given BID SHO Diphenhydramine HCl 12.5 mg 10/10/20 11:58 10/10/20 20:59 Diphenhydramine 50 Mg/Ml Vial IVP 12.5 mg Q6H PRN Administration Itching Enoxaparin Sodium 30 mg 10/08/20 09:00 10/11/20 09:00 Enoxaparin Sodium 30 Mg/0.3 Ml Syringe SC Not Given 0900 SHO Folic Acid 1 mg 10/08/20 09:00 10/11/20 09:00 Folic Acid 1 Mg Tab PO Not Given DAILY [facility] Hydralazine HCl 100 mg 10/08/20 09:00 10/11/20 09:00 Hydralazine 25 Mg Tab PO Not Given TID [facility] Clindamycin Phosphate/Dextrose 50 mls @ 100 mls/hr 10/08/20 14:00 10/11/20 04:59 600 mg/ Device IVPB 50 mls Q8HR SHO Administration Insulin Human Lispro 0 units 10/09/20 13:36 10/09/20 18:29 Humalog 300 Units/3 Ml Vial SC 6 unit .MODERATE SLIDING SC PRN Administration Moderate Correctional Scale Isosorbide Mononitrate 20 mg 10/09/20 21:00 10/11/20 09:01 Isosorbide Mononitrate 20 Mg Tab PO Not Given BID [facility] Labetalol HCl 400 mg 10/08/20 09:00 10/11/20 09:01 Labetalol 100 Mg Tab PO Not Given BID [facility] Labetalol HCl 20 mg 10/08/20 05:10 10/08/20 06:05 Labetalol Hcl 100 Mg/20 Ml Vial SLOW IVP 4 ml Q4H PRN Administration SBP Greater Than 170 Nifedipine 60 mg 10/09/20 21:00 10/10/20 21:46 Nifedipine Xl 60 Mg Tab PO Not Given [facility] Prednisone 5 mg 10/08/20 09:00 10/11/20 09:01 Prednisone 5 Mg Tab PO Not Given DAILY [facility] Sodium Bicarbonate 975 mg 10/09/20 15:00 10/11/20 08:57 Sodium Bicarbonate Tab 325 Mg Tab PO 975 mg TID [facility] Administration Throat Lozenges 1 dalton 10/11/20 04:49 10/11/20 08:57 Cepastat Lozenges 1 Dalton PO 1 dalton Q4H PRN Administration Sore Throat Hospitalist Exam Vitals: Vital Signs (12 hours) Temp Pulse Resp BP Pulse Ox 10/11/20 11:32 97.9 F 91 16 159/74 H 98 10/11/20 07:35 98.2 F 90 16 131/63 97 10/11/20 04:00 98.3 F 96 18 138/67 93 L Weight Weight 137 lb 11.2 oz General Appearance: NAD, awake alert Eye: PERRL ENT: normocephalic atraumatic Neck: supple Heart: RRR Respiratory: CTAB, normal chest expansion Gastrointestinal: soft, normal bowel sounds Extremities: 1+ LE edema Musculoskeletal: generalized weakness Psychiatric: A&O x 3 Hosp A/P - Plan Chest pain Code(s): R07.9 - CHEST PAIN, UNSPECIFIED Status: Acute (2) Renal failure (ARF), acute on chronic Code(s): N17.9 - ACUTE KIDNEY FAILURE, UNSPECIFIED; N18.9 - CHRONIC KIDNEY DISEASE, UNSPECIFIED Status: Acute (3) Rheumatoid arthritis involving both ankles Code(s): M06.9 - RHEUMATOID ARTHRITIS, UNSPECIFIED Status: Acute (4) DM2 (diabetes mellitus, type 2) Status: Chronic Qualifiers: Diabetes mellitus complication status: with kidney complications Diabetes mellitus complication detail: with chronic kidney disease Chronic kidney disease stage: stage 3 (moderate) (5) Hypertension Code(s): I10 - ESSENTIAL (PRIMARY) HYPERTENSION Status: Chronic Qualifiers: Hypertension type: essential hypertension Qualified Code(s): I10 - Essential (primary) hypertension (6) Hypomagnesemia Code(s): E83.42 - HYPOMAGNESEMIA Status: Resolved (7) Leukocytosis Code(s): D72.829 - ELEVATED WHITE BLOOD CELL COUNT, UNSPECIFIED Status: Acute (8) Nausea and vomiting Code(s): R11.2 - NAUSEA WITH VOMITING, UNSPECIFIED Status: Acute - Plan Plan: case of an 65y/o female with the stated pmhx who present with chest pain and b/l heel pain chest pain - atypical pain, soreness in upper chest reproducible to palpation - ekg w/o st ischemic changes -Troponins negative ruled out acute coronary syndrome. rheumatoid arthritis--status post synovial joint fluid aspiration on the right knee -She follows with director dietetics department Dr. Krystina Blakely outpatient - pt refers need an eye test before starting a medication she does not know the name of - will start renally adjusted methotrexate - will start low dose steroid for short term use -Both sed rate and CRP are elevated--- - was tapped by ED -Fluid study showed [place] 3335r RBCs around 37,000 neutrophils 73% did not see any bands; hazy color - synovial fluid culture off -many WBCs but no organisms so far. -Based on the fluid study does not appearseptic arthritis even though inflammatory markers are quite high I will trend the inflammatory markers and follow the clinical course. -We will change the antibiotic to clindamycin to cover for anaerobes--------------> stop this Clinda on . leukocytosis----trending down Rheumatoid arthritis flareup Leukocytosis due to inflammatory process with underlying history of rheumatoid arthritis - - will cover w rocephin for prophylaxis - u/a clean , cxr clean nausea+ vomiting - symptomatic tx prn tom over ckd - iv hydration 1xkg - increased creatinine and decreased gfr from previous visit - nephrology following with - methotrexate can worsen renal function, monitor closely hypomagnesemia - will replace - f/u labs in am Hyperglycemia possibly due to the steroid -She is not on any home diabetic medications -We will get A1c and use the sliding scale insulin for now. Mild hyponatremia -Gentle fluid and repeat the panel htn -continue home meds dm acc+ss Her blood pressure runs on the low side -I adjusted several of her home blood pressure medications -Need some gentle hydration to improve her sodium level -She was also started on sodium bicarb [address] Culp -Methotrexate is 2.5 mg every 7 days renally dosed Covid negative She was hospitalized in June for Covid pneumonia prior to that she was seen by aviation neuropsychologist Dr. Krystina Manzanares and Cuauhtemoc and been told that she has a touch of rheumatoid arthritis. She is not taking any methotrexate. This has been verified I went through all her medication list She is on clonidine labetalol hydralazine B12 glipizide Lasix Lipitor and she takes epoetin shot every 2 weeks for anemia which she will be getting tomorrow. Her sodium is dropped to 127 tried gentle hydration but she gets volume overload due to end-stage kidney disease. So will try to do a fluid restriction. Her TSH in the random cortisol level in the normal range Steroid-induced hyperglycemia We will go along with scheduled on the sliding scale insulin. Her A1c is 6.6 only Does not need any oral hypoglycemic drugs at least at this time. patient is not on any rheumatological DMARD she never been on methotrexate Misleading information during the admission time. I have discontinued the methotrexate She has ongoing electrolyte abnormalities. Cannot give her much fluid due to end-stage renal disease. She is on fluid restriction. Sodium is improved however her calcium is very low magnesium in the normal range. Daily calcium supplement initiated. TSH and random cortisol in the normal range. Patient should follow-up with Dr. Culp if she is not willing for dialysis at this point.
[2020-10-11 19:54] LABS: Anion Gap 20 mmol/L (10-20); BUN (Urea Nitrogen) 78 mg/dL (9.8-20.1); Calc. Creatinine Clearance 8 mL/min (70-130); Calcium 6.2 mg/dL (7.8-10.44); Carbon Dioxide 19 mmol/L (23-31); Chloride 102 mmol/L (98-107); Glucose 178 mg/dL (80-115); Potassium 4.3 mmol/L (3.5-5.1); Sodium 137 mmol/L (136-145)
[2020-10-11] MEDS: diphenhydrAMINE 50 MG/ML VIAL IVP PRN (20:29)
[2020-10-11] MEDS: Calcium Carbonate 500 MG ChewTAB PO SCH (22:14)
[2020-10-11] MEDS: Atorvastatin Calcium 40 MG TAB PO SCH (22:14)
[2020-10-11] MEDS: NIFEdipine XL 60 MG TAB PO SCH (22:15)
[2020-10-12 04:59] LABS: #Eosinphils 0.2 thou/uL (0.0-0.7); #Lymphocytes 0.6 thou/uL (1.20-3.40); #Monocytes 0.2 thou/uL (0.11-0.59); #Neutrophils 7.5 thou/uL (1.40-6.50); %Eosinophils 2.1 % (0.0-10.0); %Lymphocytes 6.5 % (21.0-51.0); %Monocytes 1.9 % (0.0-10.0); %Neutrophils 89.4 % (42.0-75.0); Hemoglobin 9.8 g/dL (12.0-16.0); Mean Corpuscular HGB CONC 30.6 g/dL (32.0-36.0); Mean Corpuscular Hemoglobin 22.1 pg (27.0-31.0); Mean Corpuscular Volume 72.2 fL (78.0-98.0); Mean Platelet Volume 8.9 fL (7.4-10.4); Platelet Count 370 thou/uL (130-400); RBC Distribution Width 15.9 % (11.5-14.5); Red Blood Cell (RBC) Count 4.41 mill/uL (4.20-5.40); White Blood Cell (WBC) Count 8.4 thou/uL (4.8-10.8)
[2020-10-12] MEDS: Clindamycin/D5W 600 MG in Premix Bag 1 BAG IVPB SCH (05:02)
[2020-10-12] MEDS: diphenhydrAMINE 50 MG/ML VIAL IVP PRN ×2 (05:02→20:43)
[2020-10-12] MEDS: HYDROcodone/Acetaminophen 5/325 mg Tablet PO PRN ×3 (05:03→20:42)
[2020-10-12] MEDS: Sodium Bicarbonate Tab 325 MG TAB PO SCH ×3 (08:13→20:42)
[2020-10-12] MEDS: cloNIDine 0.1 MG TAB PO SCH ×2 (08:14→15:27)
[2020-10-12] MEDS: hydrALAZINE 25 MG TAB PO SCH ×3 (08:14→15:30)
[2020-10-12] MEDS: Enoxaparin Sodium 30 MG/0.3 ML SYRINGE SC SCH (08:14)
[2020-10-12] MEDS: Calcium Carbonate 500 MG ChewTAB PO SCH (08:14)
[2020-10-12] MEDS: Folic Acid 1 MG TAB PO SCH (08:14)
[2020-10-12] MEDS: Isosorbide Mononitrate 20 MG TAB PO SCH (08:15)
[2020-10-12] MEDS: Labetalol 100 MG TAB PO SCH (08:15)
[2020-10-12] MEDS: predniSONE 5 MG TAB PO SCH (08:15)
[2020-10-12] MEDS ORDERED: Alogliptin 25 MG TAB PO SCH (10:15)
--- NOTE | 2020-10-12 10:34 | PDOC.HOSPP ---
- Subjective Encounter Date: 10/12/20 Encounter Time: 10:00 Subjective: Ms. Roberts was seen this morning in follow up of a rheumatoid arthritis flare up in her knees. She says the right knee feels better after fluid drainage and a steroid injection was given. Her left knee, however, feels much worse today. She has not been ambulating. Her knees are erythemetous, swollen, and tender diffusely. - Objective Vital Signs & Weight: Vital Signs (12 hours) Temp Pulse Resp BP Pulse Ox 10/12/20 08:00 98.7 F 93 17 177/81 H 97 10/12/20 03:52 98.5 F 100 16 152/70 H 96 10/12/20 03:07 99 10/11/20 23:30 127/61 Weight Weight 137 lb 11.2 oz I&O: 10/11/20 10/12/20 10/13/20 06:59 06:59 06:59 Intake Total 2330 1090 Output Total 850 1900 Balance 1480 -810 Result Diagrams: 10/12/20 04:22 10/12/20 11:00 Hospitalist ROS - Review of Systems Constitutional: denies: fever, chills Respiratory: denies: cough, shortness of breath Cardiovascular: denies: chest pain, palpitations Gastrointestinal: denies: nausea, vomiting, abdominal pain, diarrhea, cons tipation - Medication Medications: Active Medications Generic Name Dose Route Start Last Admin Trade Name Freq PRN Reason Stop Dose Admin Hydrocodone Bitart/Acetaminophen 2 tab 10/09/20 10:23 10/12/20 05:03 Hydrocodone/Acetaminophen 5/325 Mg Tablet PO 2 tab Q4H PRN Administration Moderate to Severe Pain (6-10) Atorvastatin Calcium 40 mg 10/08/20 21:00 10/11/20 22:14 Atorvastatin Calcium 40 Mg Tab PO Not Given HS SHO Benzonatate 100 mg 10/10/20 04:36 10/11/20 04:30 Benzonatate 100 Mg Cap PO 100 mg TIDPRN PRN Administration Cough Calcium Carbonate 500 mg 10/11/20 21:00 10/12/20 08:14 Calcium Carbonate 500 Mg Chewtab PO Not Given BID SHO Clonidine 0.1 mg 10/09/20 21:00 10/12/20 08:14 Clonidine 0.1 Mg Tab PO Not Given BID SHO Diphenhydramine HCl 12.5 mg 10/10/20 11:58 10/12/20 05:02 Diphenhydramine 50 Mg/Ml Vial IVP 12.5 mg Q6H PRN Administration Itching Enoxaparin Sodium 30 mg 10/08/20 09:00 10/12/20 08:14 Enoxaparin Sodium 30 Mg/0.3 Ml Syringe SC Not Given 0900 [facility] Folic Acid 1 mg 10/08/20 09:00 10/12/20 08:14 Folic Acid 1 Mg Tab PO Not Given DAILY [facility] Hydralazine HCl 100 mg 10/08/20 09:00 10/12/20 08:14 Hydralazine 25 Mg Tab PO Not Given TID [facility] Clindamycin Phosphate/Dextrose 50 mls @ 100 mls/hr 10/08/20 14:00 10/12/20 05:02 600 mg/ Device IVPB 50 mls Q8HR SHO Administration Insulin Human Lispro 0 units 10/09/20 13:36 10/09/20 18:29 Humalog 300 Units/3 Ml Vial SC 6 unit .MODERATE SLIDING SC PRN Administration Moderate Correctional Scale Isosorbide Mononitrate 20 mg 10/09/20 21:00 10/12/20 08:15 Isosorbide Mononitrate 20 Mg Tab PO Not Given BID [facility] Labetalol HCl 400 mg 10/08/20 09:00 10/12/20 08:15 Labetalol 100 Mg Tab PO Not Given BID [facility] Labetalol HCl 20 mg 10/08/20 05:10 10/08/20 06:05 Labetalol Hcl 100 Mg/20 Ml Vial SLOW IVP 4 ml Q4H PRN Administration SBP Greater Than 170 Nifedipine 60 mg 10/09/20 21:00 10/11/20 22:15 Nifedipine Xl 60 Mg Tab PO Not Given HS [facility] Prednisone 5 mg 10/08/20 09:00 10/12/20 08:15 Prednisone 5 Mg Tab PO Not Given DAILY [facility] Sodium Bicarbonate 975 mg 10/09/20 15:00 10/12/20 08:13 Sodium Bicarbonate Tab 325 Mg Tab PO 975 mg TID SHO Administration Throat Lozenges 1 dalton 10/11/20 04:49 10/11/20 20:29 Cepastat Lozenges 1 Dalton PO 1 dalton Q4H PRN Administration Sore Throat Hospitalist Exam Vitals: Vital Signs (12 hours) Temp Pulse Resp BP Pulse Ox 10/12/20 08:00 98.7 F 93 17 177/81 H 97 10/12/20 03:52 98.5 F 100 16 152/70 H 96 10/12/20 03:07 99 10/11/20 23:30 127/61 Weight Weight 137 lb 11.2 oz Eye: PERRL Neck: no JVD Heart: no murmur, normal peripheral pulses Heart - other findings: tachycardic Respiratory: CTAB Gastrointestinal: soft, non-tender, non-distended, normal bowel sounds Extremities: 1+ LE edema Neurological: cranial nerve grossly intact Psychiatric: A&O x 3 Hosp A/P - Plan Chest pain Code(s): R07.9 - CHEST PAIN, UNSPECIFIED Status: Acute (2) Renal failure (ARF), acute on chronic Code(s): N17.9 - ACUTE KIDNEY FAILURE, UNSPECIFIED; N18.9 - CHRONIC KIDNEY DISEASE, UNSPECIFIED Status: Acute (3) Rheumatoid arthritis involving both ankles Code(s): M06.9 - RHEUMATOID ARTHRITIS, UNSPECIFIED Status: Acute (4) DM2 (diabetes mellitus, type 2) Status: Chronic Qualifiers: Diabetes mellitus complication status: with kidney complications Diabetes mellitus complication detail: with chronic kidney disease Chronic kidney disease stage: stage 3 (moderate) (5) Hypertension Code(s): I10 - ESSENTIAL (PRIMARY) HYPERTENSION Status: Chronic Qualifiers: Hypertension type: essential hypertension Qualified Code(s): I10 - Essential (primary) hypertension (6) Hypomagnesemia Code(s): E83.42 - HYPOMAGNESEMIA Status: Resolved (7) Leukocytosis Code(s): D72.829 - ELEVATED WHITE BLOOD CELL COUNT, UNSPECIFIED Status: Acute (8) Nausea and vomiting Code(s): R11.2 - NAUSEA WITH VOMITING, UNSPECIFIED Status: Acute - Plan Plan: case of an 65y/o female with the stated pmhx who present with chest pain and b/l heel pain chest pain - atypical pain, soreness in upper chest reproducible to palpation - ekg w/o st ischemic changes -Troponins negative ruled out acute coronary syndrome. rheumatoid arthritis--status post synovial joint fluid aspiration on the right knee -She follows with compliance nurse Dr. Krystina Blakely outpatient - pt refers need an eye test before starting a medication she does not know the name of - will start renally adjusted methotrexate - will start low dose steroid for short term use -Both sed rate and CRP are elevated--- - was tapped by ED -Fluid study showed [place] 3335r RBCs around 37,000 neutrophils 73% did not see any bands; hazy color - synovial fluid culture off -many WBCs but no organisms so far. -Based on the fluid study does not appearseptic arthritis even though inflam matory markers are quite high I will trend the inflammatory markers and follow the clinical course. -We will change the antibiotic to clindamycin to cover for anaerobes--------------> stop this Clinda on . leukocytosis----trending down Rheumatoid arthritis flareup Leukocytosis due to inflammatory process with underlying history of rheumatoid arthritis - - will cover w rocephin for prophylaxis - u/a clean , cxr clean nausea+ vomiting - symptomatic tx prn tom over ckd - iv hydration 1xkg - increased creatinine and decreased gfr from previous visit - nephrology following with - methotrexate can worsen renal function, monitor closely hypomagnesemia - will replace - f/u labs in am Hyperglycemia possibly due to the steroid -She is not on any home diabetic medications -We will get A1c and use the sliding scale insulin for now. Mild hyponatremia -Gentle fluid and repeat the panel htn -continue home meds dm acc+ss Her blood pressure runs on the low side -I adjusted several of her home blood pressure medications -Need some gentle hydration to improve her sodium level -She was also started on sodium bicarb [address] Culp -Methotrexate is 2.5 mg every 7 days renally dosed Covid negative She was hospitalized in June for Covid pneumonia prior to that she was seen by blasting cap assembler Dr. Krystina Sales and been told that she has a touch of rheumatoid arthritis. She is not taking any methotrexate. This has been verified I went through all her medication list She is on clonidine labetalol hydralazine B12 glipizide Lasix Lipitor and she takes epoetin shot every 2 weeks for anemia which she will be getting tomorrow. Her sodium is dropped to 127 tried gentle hydration but she gets volume overload due to end-stage kidney disease. So will try to do a fluid restriction. Her TSH in the random cortisol level in the normal range Steroid-induced hyperglycemia We will go along with scheduled on the sliding scale insulin. Her A1c is 6.6 only Does not need any oral hypoglycemic drugs at least at this time. patient is not on any rheumatological DMARD she never been on methotrexate Misleading information during the admission time. I have discontinued the methotrexate She has ongoing electrolyte abnormalities. Cannot give her much fluid due to end-stage renal disease. She is on fluid restriction. Sodium is improved however her calcium is very low magnesium in the normal range. Daily calcium supplement initiated. TSH and random cortisol in the normal range. Patient should follow-up with Dr. Culp if she is not willing for dialysis at this point. BP elevated at 177/81 Calcium is still low at 6.2--Continue supplement. +1 bilateral LE edema appreciated on physical exam Hyperglycemic--glucose at 238. She is not definitely diagnosed with rheumatoid arthritis even though there is concern and possibility. If so I will get her KIRSTEN panel and monitor including CRP as well. If rheumatoid factor positive then will go with starting her on a steroid. Anyway she does have a outpatient blasting cap assembler but she has not seen her for a long time. patient has never been on methotrexate. Since she is afebrile and normal white count clinically she is better I will di scontinue the empiric antibiotic of clindamycin. As she is at risk for C. difficile related diarrhea as well. Patient is seen individually and examined. Reviewed the case with the student and discussed the plan of care and agree with the today's plan.
[2020-10-12 11:41] LABS: Anion Gap 17 mmol/L (10-20); BUN (Urea Nitrogen) 72 mg/dL (9.8-20.1); Calc. Creatinine Clearance 9 mL/min (70-130); Calcium 6.1 mg/dL (7.8-10.44); Carbon Dioxide 20 mmol/L (23-31); Chloride 103 mmol/L (98-107); Glucose 238 mg/dL (80-115); Potassium 4.3 mmol/L (3.5-5.1); Sodium 136 mmol/L (136-145)
[2020-10-12] MEDS ORDERED: CEFAZOLIN 2 GM in Premix Bag 1 BAG IVPB SCH (15:00)
--- NOTE | 2020-10-12 15:07 | PRG ---
DATE OF SERVICE: 10/12/2020 SUBJECTIVE: A 65-year-old female being seen for stage 5 chronic kidney disease. The patient denied any nausea, vomiting, or chest pain. OBJECTIVE: GENERAL: The patient is awake, alert. VITAL SIGNS: Afebrile, pulse 85, breathing at 16, blood pressure 159/74. HEENT: Head normocephalic and atraumatic. Eyes intact, no ulcers. Nose intact, no ulcers. Ears intact, no ulcers. NECK: Supple. No JVD. CHEST: Symmetrical and clear. CARDIOVASCULAR: Shows S1 and S2, no rub, no murmur. GASTROINTESTINAL: Abdomen is soft, bowel sounds positive. EXTREMITIES: Show no edema or ulcers. SKIN: Shows no rash or petechiae. MUSCULOSKELETAL: Shows no joint swelling or stiffness. GENITOURINARY: Shows no Hodges or CVA tenderness. NEUROLOGIC: Motor intact. Cranial nerves intact. LABS: Reviewed. ASSESSMENT AND PLAN: 1. Chronic kidney disease, stage 5. Risks versus benefits of dialysis were discussed. We will plan fistula. No urgent indication for dialysis. 2. Hypertension, stable. 3. Anemia, stable. 4. Hyperkalemia, improved. 5. Metabolic acidosis. Continue sodium bicarbonate. 6. Hypocalcemia. Recommend Tums with food. Job ID: [id number]
--- NOTE | 2020-10-12 16:30 | ULT ---
EXAM: Vein mapping for dialysis access HISTORY: End-stage renal disease. TECHNIQUE: Multiplanar grayscale and color Doppler images were obtained in a bilateral upper extremit y venous ultrasound. Spectral analysis of the Doppler waveforms of the vessels were performed. FINDINGS: The bilateral internal jugular veins and subclavian veins are patent without evidence of th rombus. Right brachial artery 3.5 mm Right radial artery 1.2 mm Right ulnar artery 1.8 mm Left brachial artery 3.6 mm Left radial artery 1.7 mm Left ulnar artery 1.0 mm RIGHT CEPHALIC VEIN in millimeters 1.9 -- Shoulder 1.4 -- Upper arm 0.9 -- Mid upper arm 1.0-- Just proximal to the elbow 0.9 -- Just distal to the elbow 0.9 -- Forearm 0.7 -- Wrist RIGHT BASILIC VEIN in millimeters 7.6 -- Shoulder 3.4 -- Upper arm 3.2 -- Mid upper arm 3.2 -- Just proximal to the elbow 1.0 -- Just distal to the elbow 1.1 -- Forearm 1.0 -- Wrist LEFT CEPHALIC VEIN in millimeters 2.4 -- Shoulder 1 2 -- Upper arm 1 2 -- Mid upper arm 1 2 -- Just proximal to the elbow 0.7 -- Just distal to the elbow 0.9 -- Forearm 0.6 -- Wrist LEFT BASILIC VEIN in millimeters 5.5 -- Shoulder 2.1 -- Upper arm 3.5 -- Mid upper arm 4.3 -- Just proximal to the elbow Not visualized -- Just distal to the elbow Not visualized -- Forearm Not visualized -- Wrist IMPRESSION: Vein mapping for dialysis access as above
[2020-10-12] MEDS: Cepastat Lozenges 1 LOZ PO PRN (20:42)
--- NOTE | 2020-10-12 23:28 | CON ---
DATE OF CONSULTATION: HISTORY OF PRESENT ILLNESS: Wendy Roberts is a 65-year-old female, who lives in [place], [place] with her . She has history of diabetes and hypertension. No history of coronary disease. She is admitted to this hospitalization with CHF. Echocardiogram 01/10/2019, EF 55-60%. LV function normal. Mild mitral and tricuspid regurg. She has end-stage renal disease, approaching need for dialysis. She has ultrasound vein mapping for poor veins. Plan is for a left arm fistula or graft. She understands she may need a staged fistula procedure. If Dr. Culp believes her renal function deteriorates by Friday and needs a catheter, we can place that. She understands the risks and benefits. Plan is Friday for a left arm fistula or dialysis graft by regional TIVA anesthesia. She understands risks and benefits, consents. ALLERGIES: SULFA, CODEINE, RASH. SOCIAL HISTORY: Alcohol, none. Tobacco none. MEDICATIONS: At home, 1. Hydralazine. 2. Glipizide. 3. Benadryl. 4. Clonidine. 5. Omeprazole. 6. Nifedipine. 7. Procardia XL. 8. Tradjenta. 9. Labetalol. 10. Furosemide. 11. B12. 12. Atorvastatin. 13. Tylenol with codeine. PAST SURGICAL HISTORY: Hysterectomy. PAST MEDICAL HISTORY: Diabetes mellitus, hypertension. REVIEW OF SYSTEMS: Noncontributory. FAMILY HISTORY: Renal disease. PHYSICAL EXAMINATION: VITAL SIGNS: 5 feet 1 inch, 137 pounds, 26 BMI. 98.2, 99, 194/84. HEAD, EARS, EYES, NOSE, AND THROAT: Unremarkable. LUNGS: Clear to auscultation. CARDIAC: Regular and rhythm without murmur or gallop. ABDOMEN: Soft, nontender. EXTREMITIES: Unremarkable. Palpable radial pulses. IV in left hand. LABORATORY DATA: White count 8, hemoglobin 9.8. Sodium 136, potassium 4.3, carbon dioxide 20, it was 13 on admission, BUN 72, creatinine 6.36, GFR 8. ASSESSMENT AND PLAN: End-stage renal disease. PLAN: Placement of left arm fistula or graft. She understands the risks and benefits and consents. We will plan this Friday under regional anesthesia. If Dr. Ortiz believes she needs to start dialysis sooner, we can place hemodialysis catheter. Job ID: [id number]
[2020-10-13] MEDS: cloNIDine 0.1 MG TAB PO SCH ×4 (01:50→20:30)
[2020-10-13] MEDS: Isosorbide Mononitrate 20 MG TAB PO SCH ×3 (01:50→22:30)
[2020-10-13] MEDS: Atorvastatin Calcium 40 MG TAB PO SCH ×2 (01:50→22:29)
[2020-10-13] MEDS: hydrALAZINE 25 MG TAB PO SCH ×4 (01:50→22:29)
[2020-10-13] MEDS: Labetalol 100 MG TAB PO SCH ×3 (01:50→22:30)
[2020-10-13] MEDS: Calcium Carbonate 500 MG ChewTAB PO SCH ×3 (01:50→22:29)
[2020-10-13] MEDS: NIFEdipine XL 60 MG TAB PO SCH ×2 (01:51→22:30)
[2020-10-13] MEDS: Alogliptin 25 MG TAB PO SCH (08:25)
[2020-10-13] MEDS: Sodium Bicarbonate Tab 325 MG TAB PO SCH ×3 (08:26→22:31)
[2020-10-13] MEDS: Enoxaparin Sodium 30 MG/0.3 ML SYRINGE SC SCH (08:56)
[2020-10-13] MEDS: Folic Acid 1 MG TAB PO SCH (08:56)
[2020-10-13 10:21] LABS: Anion Gap 17 mmol/L (10-20); BUN (Urea Nitrogen) 70 mg/dL (9.8-20.1); Calc. Creatinine Clearance 10 mL/min (70-130); Calcium 6.4 mg/dL (7.8-10.44); Carbon Dioxide 19 mmol/L (23-31); Chloride 104 mmol/L (98-107); Glucose 218 mg/dL (80-115); Potassium 3.9 mmol/L (3.5-5.1); Sodium 136 mmol/L (136-145)
--- NOTE | 2020-10-13 10:23 | PRG ---
DATE OF SERVICE: 10/13/2020 SUBJECTIVE: A 65-year-old female, being seen for acute kidney injury. The patient denied any nausea, vomiting, or chest pain. OBJECTIVE: General: The patient is awake and alert. Vital Signs: Afebrile, pulse 97, breathing at 16, blood pressure 164/75. HEENT: Head normocephalic and atraumatic. Eyes intact, no ulcers. Nose intact, no ulcers. Ears intact, no ulcers. Neck: Supple. No JVD. Chest: Symmetrical and clear. Cardiovascular: Shows S1 and S2, no rub, no murmur. Gastrointestinal: Abdomen is soft, bowel sounds positive. Extremities: Show no edema or ulcers. Skin: Shows no rash or petechiae. Musculoskeletal: Shows no joint swelling or stiffness. Genitourinary: Shows no Hodges or CVA tenderness. Neurologic: Motor intact. Cranial nerves intact. LABORATORY DATA: Show hemoglobin 9.8. Creatinine is pending. ASSESSMENT AND PLAN: Chronic kidney disease stage 5. We will plan dialysis if the patient agrees. Hypertension, stable. Anemia, stable. Hyperkalemia, stable. Labs are pending. Job ID: [id number]
[2020-10-13] MEDS: HYDROcodone/Acetaminophen 5/325 mg Tablet PO PRN (11:23)
--- NOTE | 2020-10-13 11:56 | PDOC.HOSPP ---
- Subjective Encounter Date: 10/13/20 Encounter Time: 09:45 Subjective: Ms. Roberts was seen this morning in follow up of her knee arthritis. She states that she has no pain in her right knee, but rates her left knee pain at a 6/10. She also has a cough. Physical exam showed both knees appears at baseline I did not appreciate much swelling or erythema on the right knee. Status post steroid injection for possible rheumatoid arthritis flareup. - Objective Vital Signs & Weight: Vital Signs (12 hours) Temp Pulse Resp BP Pulse Ox 10/13/20 11:38 98.1 F 82 17 148/70 H 95 10/13/20 08:00 98.4 F 97 17 165/77 H 97 10/13/20 04:00 98.4 F 97 16 164/75 H 99 10/13/20 01:51 99 10/13/20 01:50 99 Weight Weight 137 lb 11.2 oz I&O: 10/12/20 10/13/20 10/14/20 06:59 06:59 06:59 Intake Total 1090 Output Total 1900 Balance -810 Result Diagrams: 10/12/20 04:22 10/13/20 09:34 Hospitalist ROS - Review of Systems Constitutional: denies: fever Respiratory: reports: cough. denies: shortness of breath Cardiovascular: denies: chest pain, palpitations Gastrointestinal: denies: nausea, vomiting, abdominal pain, diarrhea, constipation - Medication Medications: Active Medications Generic Name Dose Route Start Last Admin Trade Name Freq PRN Reason Stop Dose Admin Hydrocodone Bitart/Acetaminophen 2 tab 10/09/20 10:23 10/13/20 11:23 Hydrocodone/Acetaminophen 5/325 Mg Tablet PO 2 tab Q4H PRN Administration Moderate to Severe Pain (6-10) Alogliptin Benzoate 25 mg 10/13/20 09:00 10/13/20 08:25 Alogliptin 25 Mg Tab PO 25 mg DAILY SHO Administration Atorvastatin Calcium 40 mg 10/08/20 21:00 10/13/20 01:50 Atorvastatin Calcium 40 Mg Tab PO Not Given HS SHO Benzonatate 100 mg 10/10/20 04:36 10/11/20 04:30 Benzonatate 100 Mg Cap PO 100 mg TIDPRN PRN Administration Cough Calcium Carbonate 1,000 mg 10/12/20 21:00 10/13/20 08:55 Calcium Carbonate 500 Mg Chewtab PO Not Given BID [facility] Clonidine 0.2 mg 10/12/20 15:00 10/13/20 08:26 Clonidine 0.1 Mg Tab PO 0.2 mg TID SHO Administration Diphenhydramine HCl 12.5 mg 10/10/20 11:58 10/12/20 20:43 Diphenhydramine 50 Mg/Ml Vial IVP 12.5 mg Q6H PRN Administration Itching Enoxaparin Sodium 30 mg 10/08/20 09:00 10/13/20 08:56 Enoxaparin Sodium 30 Mg/0.3 Ml Syringe SC Not Given 0900 [facility] Folic Acid 1 mg 10/08/20 09:00 10/13/20 08:56 Folic Acid 1 Mg Tab PO Not Given DAILY [facility] Hydralazine HCl 100 mg 10/08/20 09:00 10/13/20 08:56 Hydralazine 25 Mg Tab PO Not Given TID [facility] Insulin Human Lispro 0 units 10/09/20 13:36 10/09/20 18:29 Humalog 300 Units/3 Ml Vial SC 6 unit .MODERATE SLIDING SC PRN Administration Moderate Correctional Scale Isosorbide Mononitrate 20 mg 10/09/20 21:00 10/13/20 08:57 Isosorbide Mononitrate 20 Mg Tab PO Not Given BID [facility] Labetalol HCl 400 mg 10/08/20 09:00 10/13/20 08:57 Labetalol 100 Mg Tab PO Not Given BID [facility] Labetalol HCl 20 mg 10/08/20 05:10 10/08/20 06:05 Labetalol Hcl 100 Mg/20 Ml Vial SLOW IVP 4 ml Q4H PRN Administration SBP Greater Than 170 Nifedipine 60 mg 10/09/20 21:00 10/13/20 01:51 Nifedipine Xl 60 Mg Tab PO Not Given HS [facility] Sodium Bicarbonate 975 mg 10/09/20 15:00 10/13/20 08:26 Sodium Bicarbonate Tab 325 Mg Tab PO 975 mg TID [facility] Administration Throat Lozenges 1 dalton 10/11/20 04:49 10/12/20 20:42 Cepastat Lozenges 1 Dalton PO 1 dalton Q4H PRN Administration Sore Throat Hospitalist Exam Vitals: Vital Signs (12 hours) Temp Pulse Resp BP Pulse Ox 10/13/20 11:38 98.1 F 82 17 148/70 H 95 10/13/20 08:00 98.4 F 97 17 165/77 H 97 10/13/20 04:00 98.4 F 97 16 164/75 H 99 10/13/20 01:51 99 10/13/20 01:50 99 Weight Weight 137 lb 11.2 oz Heart: RRR Respiratory: CTAB, normal chest expansion Extremities: no edema Neurological: cranial nerve grossly intact Musculoskeletal - other findings: L knee is inflamed, diffusely tender, non- erythemetous Psychiatric: A&O x 3, lethargic Hosp A/P - Plan case of an 65y/o female with chest pain and b/l heel pain chest pain - atypical pain, soreness in upper chest reproducible to palpation - ekg w/o st ischemic changes -Troponins negative ruled out acute coronary syndrome. rheumatoid arthritis--status post synovial joint fluid aspiration on the right knee -She follows with unix developer Dr. Krystina Blakely outpatient - pt refers need an eye test before starting a medication she does not know the name of - will start renally adjusted methotrexate - will start low dose steroid for short term use -Both sed rate and CRP are elevated--- - was tapped by ED -Fluid study showed [place] 3335r RBCs around 37,000 neutrophils 73% did not see any bands; hazy color - synovial fluid culture off -many WBCs but no organisms so far. -Based on the fluid study does not appearseptic arthritis even though inflammatory markers are quite high I will trend the inflammatory markers and follow the clinical course. -We will change the antibiotic to clindamycin to cover for anaerobes------- -------> stop this Clinda on . leukocytosis----trending down Rheumatoid arthritis flareup Leukocytosis due to inflammatory process with underlying history of rheumatoid arthritis --- She was hospitalized in June for Covid pneumonia prior to that she was seen by medical language specialist Dr. Krystina Sales and been told that she has a touch of rheumatoid arthritis. She is not taking any methotrexate. This has been verified I went through all her medication list She is on clonidine labetalol hydralazine B12 glipizide Lasix Lipitor and she takes epoetin shot every 2 weeks for anemia which she will be getting tomorrow. Her sodium is dropped to 127 tried gentle hydration but she gets volume overload due to end-stage kidney disease. So will try to do a fluid restriction. Her TSH in the random cortisol level in the normal range Steroid-induced hyperglycemia We will go along with scheduled on the sliding scale insulin. Her A1c is 6.6 only Does not need any oral hypoglycemic drugs at least at this time. patient is not on any rheumatological DMARD she never been on methotrexate Misleading information during the admission time. I have discontinued the methotrexate -- She is not definitely diagnosed with rheumatoid arthritis even though there is concern and possibility. If so I will get her KIRSTEN panel and monitor including C RP as well. If rheumatoid factor positive then will go with starting her on a steroid. Anyway she does have a outpatient medical language specialist but she has not seen her for a long time. patient has never been on methotrexate. CRP decreased to 8.77 Possible history of rheumatoid arthritis -Rheumatoid factor level pending. Follow-up on it please Hypocalcemia--at 6.1; added TUMs with food. -Currently at maximum allowed the dose of calcium supplement. Corrected calcium around 7.2 Repeat the level and will give her another dose of calcium gluconate. Sodium and potassium at normal levels. -Follow-up on I PTH as well as vitamin D level Scheduled for [facility] placemen Friday morning. May also place hemodialysis catheter if Dr. Ortiz suggests starting dialysis sooner. NPO friday after midnight. Hypertension-stable Metabolic Acidosis-secondary to end-stage renal disease -continue sodium bicarbonate Anemia of kidney disease -stable Care discussed with the student and agree with the above plan for today.
[2020-10-13] MEDS ORDERED: Calcium Gluc 4.6 MEQ/10 ML (100 MG/ML) SLOW IVP ONE (13:38)
[2020-10-13] MEDS ORDERED: Calcium Gluconate 4.6 MEQ in Sodium Chloride 0.9% 100 ML IVPB SCH (13:45)
[2020-10-13 17:07] LABS: ANA Symphony (Qualitative) Negative (Negative); ANA Symphony (Quantitative) 0.3 Ratio (< 0.7 Negative)
[2020-10-13 19:12] LABS: EliA RAS New Method **** NEW METHOD ****; Rheumatoid Factor IgA Antibody 3.8 IU/mL (<14 Negative)
[2020-10-13] MEDS: Labetalol HCl 100 MG/20 ML VIAL SLOW IVP PRN (19:34)
[2020-10-14] MEDS: Alogliptin 25 MG TAB PO SCH (08:40)
[2020-10-14] MEDS: cloNIDine 0.1 MG TAB PO SCH ×3 (08:40→21:25)
[2020-10-14] MEDS: Sodium Bicarbonate Tab 325 MG TAB PO SCH ×3 (08:40→21:29)
[2020-10-14] MEDS: Folic Acid 1 MG TAB PO SCH (08:43)
[2020-10-14] MEDS: Calcium Carbonate 500 MG ChewTAB PO SCH ×2 (08:43→21:25)
[2020-10-14] MEDS: hydrALAZINE 25 MG TAB PO SCH ×3 (08:43→21:25)
[2020-10-14] MEDS: Enoxaparin Sodium 30 MG/0.3 ML SYRINGE SC SCH (08:43)
[2020-10-14] MEDS: Labetalol 100 MG TAB PO SCH ×2 (08:44→21:29)
[2020-10-14] MEDS: Isosorbide Mononitrate 20 MG TAB PO SCH ×2 (08:44→21:25)
[2020-10-14] MEDS ORDERED: Promethazine 25 MG TAB PO PRN (10:30)
[2020-10-14] MEDS: Labetalol HCl 100 MG/20 ML VIAL SLOW IVP PRN (11:31)
--- NOTE | 2020-10-14 12:56 | PDOC.HOSPP ---
- Subjective Encounter Date: 10/14/20 Encounter Time: 12:54 Subjective: Ms. Roberts was seen today in follow-up of new onset ESRD. She had some nausea this morning, but otherwise no complaints. - Objective Vital Signs & Weight: Vital Signs (12 hours) Temp Pulse Resp BP Pulse Ox 10/14/20 12:00 99.2 F 89 17 192/82 H 95 10/14/20 07:06 98.7 F 86 17 179/83 H 94 L 10/14/20 03:37 98.5 F 82 15 150/69 H 92 L Weight Weight 138 lb 8 oz Result Diagrams: 10/12/20 04:22 10/13/20 09:34 Hospitalist ROS - Medication Medications: Active Medications Generic Name Dose Route Start Last Admin Trade Name Freq PRN Reason Stop Dose Admin Hydrocodone Bitart/Acetaminophen 2 tab 10/09/20 10:23 10/14/20 00:00 Hydrocodone/Acetaminophen 5/325 Mg Tablet PO 2 tab Q4H PRN Administration Moderate to Severe Pain (6-10) Alogliptin Benzoate 25 mg 10/13/20 09:00 10/14/20 08:40 Alogliptin 25 Mg Tab PO 25 mg DAILY SHO Administration Atorvastatin Calcium 40 mg 10/08/20 21:00 10/13/20 22:29 Atorvastatin Calcium 40 Mg Tab PO Not Given HS [facility]O Benzonatate 100 mg 10/10/20 04:36 10/11/20 04:30 Benzonatate 100 Mg Cap PO 100 mg TIDPRN PRN Administration Cough Calcium Carbonate 1,000 mg 10/12/20 21:00 10/14/20 08:43 Calcium Carbonate 500 Mg Chewtab PO Not Given BID [facility] Clonidine 0.2 mg 10/12/20 15:00 10/14/20 08:40 Clonidine 0.1 Mg Tab PO 0.2 mg TID SHO Administration Diphenhydramine HCl 12.5 mg 10/10/20 11:58 10/12/20 20:43 Diphenhydramine 50 Mg/Ml Vial IVP 12.5 mg Q6H PRN Administration Itching Enoxaparin Sodium 30 mg 10/08/20 09:00 10/14/20 08:43 Enoxaparin Sodium 30 Mg/0.3 Ml Syringe SC Not Given 0900 [facility] Folic Acid 1 mg 10/08/20 09:00 10/14/20 08:43 Folic Acid 1 Mg Tab PO Not Given DAILY [facility] Hydralazine HCl 100 mg 10/08/20 09:00 10/14/20 08:43 Hydralazine 25 Mg Tab PO Not Given TID [facility] Insulin Human Lispro 0 units 10/09/20 13:36 10/09/20 18:29 Humalog 300 Units/3 Ml Vial SC 6 unit .MODERATE SLIDING SC PRN Administration Moderate Correctional Scale Isosorbide Mononitrate 20 mg 10/09/20 21:00 10/14/20 08:44 Isosorbide Mononitrate 20 Mg Tab PO Not Given BID [facility] Labetalol HCl 400 mg 10/08/20 09:00 10/14/20 08:44 Labetalol 100 Mg Tab PO Not Given BID [facility] Labetalol HCl 20 mg 10/08/20 05:10 10/14/20 11:31 Labetalol Hcl 100 Mg/20 Ml Vial SLOW IVP 4 ml Q4H PRN Administration SBP Greater Than 170 Nifedipine 60 mg 10/09/20 21:00 10/13/20 22:30 Nifedipine Xl 60 Mg Tab PO Not Given HS [facility] Sodium Bicarbonate 975 mg 10/09/20 15:00 10/14/20 08:40 Sodium Bicarbonate Tab 325 Mg Tab PO 975 mg TID [facility] Administration Throat Lozenges 1 dalton 10/11/20 04:49 10/12/20 20:42 Cepastat Lozenges 1 Dalton PO 1 dalton Q4H PRN Administration Sore Throat Hospitalist Exam Vitals: Vital Signs (12 hours) Temp Pulse Resp BP Pulse Ox 10/14/20 12:00 99.2 F 89 17 192/82 H 95 10/14/20 07:06 98.7 F 86 17 179/83 H 94 L 10/14/20 03:37 98.5 F 82 15 150/69 H 92 L Weight Weight 138 lb 8 oz General Appearance: NAD, awake alert Eye: PERRL, anicteric sclera Heart: RRR, no murmur, no gallops, no rubs, normal peripheral pulses Respiratory: CTAB, no wheezes, no rales, no ronchi, normal chest expansion, no tachypnea, normal percussion Gastrointestinal: soft, non-tender, non-distended, normal bowel sounds, no palpable masses, no hepatomegaly Extremities: no cyanosis, 1+ LE edema (+ pedal edema in both lower exremities) Hosp A/P (1) Nausea and vomiting Code(s): R11.2 - NAUSEA WITH VOMITING, UNSPECIFIED Status: Acute (2) Chronic kidney disease, stage 4 (severe) Code(s): N18.4 - CHRONIC KIDNEY DISEASE, STAGE 4 (SEVERE) Status: Chronic (3) Diabetes type 2, uncontrolled Code(s): E11.65 - TYPE 2 DIABETES MELLITUS WITH HYPERGLYCEMIA Status: Chronic (4) GERD (gastroesophageal reflux disease) Code(s): K21.9 - GASTRO-ESOPHAGEAL REFLUX DISEASE WITHOUT ESOPHAGITIS Status: Chronic Qualifiers: Esophagitis presence: esophagitis presence not specified Qualified Code(s): K21.9 - Gastro-esophageal reflux disease without esophagitis (5) Hypertension Code(s): I10 - ESSENTIAL (PRIMARY) HYPERTENSION Status: Chronic Qualifiers: Hypertension type: essential hypertension Qualified Code(s): I10 - Essential (primary) hypertension - Plan * Acute kidney injury- she is now requiring dialysis, and the plan will be to start Friday * Dialysis catheter is to be placed on Friday * HTN- her blood pressure is a bit labile- will continue Clonidine Nifedipine, and Hydralazine * ? RA- her serologic titers are more consistent with SLE than RA- possibly related to her renal insufficiency as well * Nausea and vomiting- likely due to advanced chronic kidney disease- will treat symptomatically
--- NOTE | 2020-10-14 14:20 | PDOC.BPN ---
- Brief Progress Note Encounter Date: 10/14/20 Encounter Time: 14:17 Subjective: Seen and examined in the room. Does not have new complaints Review of systems Gen.: No fever, no chills All the 14 systems reviewed except for the ones mentioned above are negative Physical examination Vital Signs (24 hours) Temp Pulse Resp BP BP Pulse Ox 10/14/20 12:00 99.2 F 89 17 192/82 H 95 10/14/20 07:06 98.7 F 86 17 179/83 H 94 L 10/14/20 03:37 98.5 F 82 15 150/69 H 92 L 10/14/20 00:00 88 128/60 10/13/20 22:30 84 10/13/20 22:29 84 10/13/20 20:30 175/79 H 10/13/20 19:34 84 10/13/20 19:33 98.2 F 84 18 194/90 H 95 10/13/20 15:50 98.2 F 92 17 186/84 H 96 Constitutional: comfortable, not in pain HEENT: Mucous membranes moist, no icterus Neck: Trachea midline, no lymphadenopathy Heart: Regular rate and rhythm; no murmurs Lungs: Air entry equal bilateral; no wheezes Abdomen: Soft; nontender; no guarding/tenderness/rebound Extremities: No calf tenderness; minimal pitting edema B/L Neurological: Patient is awake, following commands Skin: No rash, no ulcers Psychological: Not agitated Labs and Imaging reviewed Laboratory Results - last 24 hr 10/12/20 10/12/20 10/14/20 13:32 13:33 03:59 25-OH Vitamin D Total PTH Intact 333.0 H Rheumatoid Factor IgA 3.8 Rheumatoid Factor IgM 13.0 H Cycl Citrul Peptide IgG 1.0 Rheumatoid Arth New Method NEW METHOD Rheumatoid Arth Interp KIRSTEN Screen POSITIVE H KIRSTEN Scrn Qualitative Negative KIRSTEN Scrn Quantitative 0.3 KIRSTEN Interpretation KIRSTEN & Anti-TR New Method NEW METHOD Anti-ds DNA IgG Ab 29.0 H Anti-ds DNA Interp 10/14/20 03:59 25-OH Vitamin D Total 13.6 L PTH Intact Rheumatoid Factor IgA Rheumatoid Factor IgM Cycl Citrul Peptide IgG Rheumatoid Arth New Method Rheumatoid Arth Interp KIRSTEN Screen KIRSTEN Scrn Qualitative KIRSTEN Scrn Quantitative KIRSTEN Interpretation KIRSTEN & Anti-TR New Method Anti-ds DNA IgG Ab Anti-ds DNA Interp Active Medications Generic Name Dose Route Start Last Admin Trade Name Freq PRN Reason Stop Dose Admin Acetaminophen 650 mg 10/07/20 22:03 Acetaminophen 325 Mg Tab PO Q4H PRN Headache/Fever/Mild Pain (1-3) Acetaminophen 650 mg 10/07/20 22:03 Acetaminophen 650 Mg Suppository MA Q4H PRN Headache/Fever/Mild Pain (1-3) Hydrocodone Bitart/Acetaminophen 2 tab 10/09/20 10:23 10/14/20 00:00 Hydrocodone/Acetaminophen 5/325 Mg Tablet PO 2 tab Q4H PRN Administration Moderate to Severe Pain (6-10) Alogliptin Benzoate 25 mg 10/13/20 09:00 10/14/20 08:40 Alogliptin 25 Mg Tab PO 25 mg DAILY SHO Administration Atorvastatin Calcium 40 mg 10/08/20 21:00 10/13/20 22:29 Atorvastatin Calcium 40 Mg Tab PO Not Given HS SHO Benzonatate 100 mg 10/10/20 04:36 10/11/20 04:30 Benzonatate 100 Mg Cap PO 100 mg TIDPRN PRN Administration Cough Calcium Carbonate 1,000 mg 10/12/20 21:00 10/14/20 08:43 Calcium Carbonate 500 Mg Chewtab PO Not Given BID [facility] Clonidine 0.2 mg 10/12/20 15:00 10/14/20 08:40 Clonidine 0.1 Mg Tab PO 0.2 mg TID SHO Administration Dextrose/Water 25 gm 10/09/20 13:36 Dextrose 50% Abboject 50 Ml Syringe SLOW IVP PRN PRN Hypoglycemia Diphenhydramine HCl 12.5 mg 10/10/20 11:58 10/12/20 20:43 Diphenhydramine 50 Mg/Ml Vial IVP 12.5 mg Q6H PRN Administration Itching Enoxaparin Sodium 30 mg 10/08/20 09:00 10/14/20 08:43 Enoxaparin Sodium 30 Mg/0.3 Ml Syringe SC Not Given 0900 [facility] Folic Acid 1 mg 10/08/20 09:00 10/14/20 08:43 Folic Acid 1 Mg Tab PO Not Given DAILY [facility] Glucagon 1 mg 10/09/20 13:36 Glucagon 1 Mg/Ml Vial IM PRN PRN Hypoglycemia Hydralazine HCl 100 mg 10/08/20 09:00 10/14/20 08:43 Hydralazine 25 Mg Tab PO Not Given TID [facility] Hydralazine HCl 10 mg 10/09/20 13:44 Hydralazine 20 Mg/Ml Vial SLOW IVP Q4H PRN Blood Pressure Dextrose/Water 1,000 mls @ 0 mls/hr 10/09/20 13:36 D5w IV .Q0M PRN Hypoglycemia As Directed Cefazolin Sodium/Dextrose 2 gm 50 mls @ 100 mls/hr 10/12/20 15:00 / Device [facility]PB [facility] Promethazine HCl 25 mg/ Sodium 51 mls @ 204 mls/hr 10/14/20 10:30 Chloride IVPB Q6H PRN Nausea/Vomiting Insulin Human Lispro 0 units 10/09/20 13:36 10/09/20 18:29 Humalog 300 Units/3 Ml Vial SC 6 unit .MODERATE SLIDING SC PRN Administration Moderate Correctional Scale Isosorbide Mononitrate 20 mg 10/09/20 21:00 10/14/20 08:44 Isosorbide Mononitrate 20 Mg Tab PO Not Given BID [facility] Labetalol HCl 400 mg 10/08/20 09:00 10/14/20 08:44 Labetalol 100 Mg Tab PO Not Given BID [facility] Labetalol HCl 20 mg 10/08/20 05:10 10/14/20 11:31 Labetalol Hcl 100 Mg/20 Ml Vial SLOW IVP 4 ml Q4H PRN Administration SBP Greater Than 170 Nifedipine 60 mg 10/09/20 21:00 10/13/20 22:30 Nifedipine Xl 60 Mg Tab PO Not Given HS [facility] Promethazine HCl 25 mg 10/14/20 10:30 Promethazine 25 Mg Tab PO Q6H PRN Nausea/Vomiting Sodium Bicarbonate 975 mg 10/09/20 15:00 10/14/20 08:40 Sodium Bicarbonate Tab 325 Mg Tab PO 975 mg TID [facility] Administration Sodium Chloride 10 ml 10/07/20 21:45 Flush - Normal Saline 10 Ml Syringe IVF PRN PRN Saline Flush Throat Lozenges 1 dalton 10/11/20 04:49 10/12/20 20:42 Cepastat Lozenges 1 Dalton PO 1 dalton Q4H PRN Administration Sore Throat Assessment and plan CKD stage V Hypertension Anemia Hypocalcemia Patient is is awaiting for possible dialysis catheter placement on Friday. In view of positive Anti-ds DNA antibodies, will check urine protein creatinine ratio, repeat UA. Continue to monitor calcium levels , patient is currently on Tums. Suggested dose for Alogliptin for eGFR is 6.25 mg/day. c/w sodium bicarbonate for metabolic acidosis. D/w MIREYA
[2020-10-14] MEDS: diphenhydrAMINE 50 MG/ML VIAL IVP PRN ×2 (20:08→22:55)
[2020-10-14] MEDS: HYDROcodone/Acetaminophen 5/325 mg Tablet PO PRN ×2 (20:10)
[2020-10-14] MEDS: Atorvastatin Calcium 40 MG TAB PO SCH (21:24)
[2020-10-14] MEDS: NIFEdipine XL 60 MG TAB PO SCH (21:29)
[2020-10-15 00:50] LABS: Bilirubin Negative (Negative); Blood, Urine Negative (Negative); Glucose, Urine (Dipstick) 200 mg/dL (Negative); Ketone, Urine Negative (Negative); Leukocyte 75 Leu/uL (Negative); Nitrite Negative (Negative); Protein, Urine (Dipstick) 600 mg/dL (Neg-Trace); RBC/HPF 0-3 HPF (0-3); Specific Gravity, Urine 1.015 (1.002-1.036); Transitional Epithelial 0-3 HPF (None Seen); Urobilinogen Normal mg/dL (Less than 2); WBC/HPF 21-50 HPF (0-3); pH, Urine 6.5 (5.0-9.0)
[2020-10-15 00:51] LABS: Bacteria/HPF 1+ HPF (None Seen); Clarity Hazy (Clear)
[2020-10-15 01:12] LABS: Creatinine, Urine 67.98 mg/dL (47-110)
[2020-10-15] MEDS: Melatonin 3 MG TAB PO PRN (03:02)
[2020-10-15] MEDS ORDERED: Polyethylene Glycol 3350 17 GM Packet PO SCH (04:45)
[2020-10-15] MEDS: Alogliptin 25 MG TAB PO SCH (08:54)
[2020-10-15] MEDS: Sodium Bicarbonate Tab 325 MG TAB PO SCH ×3 (08:56→20:30)
[2020-10-15] MEDS: Calcium Carbonate 500 MG ChewTAB PO SCH ×2 (08:57→20:27)
[2020-10-15] MEDS: Folic Acid 1 MG TAB PO SCH (08:58)
[2020-10-15] MEDS: cloNIDine 0.1 MG TAB PO SCH ×3 (08:58→20:27)
[2020-10-15] MEDS: Enoxaparin Sodium 30 MG/0.3 ML SYRINGE SC SCH (08:58)
[2020-10-15] MEDS: hydrALAZINE 25 MG TAB PO SCH ×3 (08:58→20:27)
[2020-10-15] MEDS: Isosorbide Mononitrate 20 MG TAB PO SCH ×2 (08:58→20:28)
[2020-10-15] MEDS: Labetalol 100 MG TAB PO SCH ×2 (08:59→20:29)
--- NOTE | 2020-10-15 11:38 | PDOC.HOSPP ---
- Subjective Encounter Date: 10/15/20 Encounter Time: 11:36 Subjective: Ms. Roberts was seen today in follow-up of end stage renal disease and possible RA. She notes some continued pain in both knees. No new complaints. - Objective Vital Signs & Weight: Vital Signs (12 hours) Temp Pulse Resp BP Pulse Ox 10/15/20 11:19 98.4 F 89 16 162/79 H 94 L 10/15/20 10:20 162/79 H 10/15/20 07:24 98.6 F 86 18 179/84 H 95 10/15/20 03:34 98.1 F 92 16 154/73 H 93 L Weight Weight 138 lb 8 oz I&O: 10/14/20 10/15/20 10/16/20 06:59 06:59 06:59 Intake Total 480 Output Total 1800 Balance -1320 Result Diagrams: 10/12/20 04:22 10/13/20 09:34 Hospitalist ROS - Medication Medications: Active Medications Generic Name Dose Route Start Last Admin Trade Name Freq PRN Reason Stop Dose Admin Hydrocodone Bitart/Acetaminophen 2 tab 10/09/20 10:23 10/14/20 20:10 Hydrocodone/Acetaminophen 5/325 Mg Tablet PO 2 tab Q4H PRN Administration Moderate to Severe Pain (6-10) Alogliptin Benzoate 25 mg 10/13/20 09:00 10/15/20 08:54 Alogliptin 25 Mg Tab PO 25 mg DAILY SHO Administration Atorvastatin Calcium 40 mg 10/08/20 21:00 10/14/20 21:24 Atorvastatin Calcium 40 Mg Tab PO Not Given HS SHO Benzonatate 100 mg 10/10/20 04:36 10/11/20 04:30 Benzonatate 100 Mg Cap PO 100 mg TIDPRN PRN Administration Cough Calcium Carbonate 1,000 mg 10/12/20 21:00 10/15/20 08:57 Calcium Carbonate 500 Mg Chewtab PO Not Given BID [facility] Clonidine 0.2 mg 10/12/20 15:00 10/15/20 08:58 Clonidine 0.1 Mg Tab PO Not Given TID [facility] Diphenhydramine HCl 12.5 mg 10/10/20 11:58 10/14/20 22:55 Diphenhydramine 50 Mg/Ml Vial IVP 12.5 mg Q6H PRN Administration Itching Enoxaparin Sodium 30 mg 10/08/20 09:00 10/15/20 08:58 Enoxaparin Sodium 30 Mg/0.3 Ml Syringe SC Not Given 0900 [facility] Folic Acid 1 mg 10/08/20 09:00 10/15/20 08:58 Folic Acid 1 Mg Tab PO Not Given DAILY [facility] Hydralazine HCl 100 mg 10/08/20 09:00 10/15/20 08:58 Hydralazine 25 Mg Tab PO Not Given TID [facility] Insulin Human Lispro 0 units 10/09/20 13:36 10/09/20 18:29 Humalog 300 Units/3 Ml Vial SC 6 unit .MODERATE SLIDING SC PRN Administration Moderate Correctional Scale Isosorbide Mononitrate 20 mg 10/09/20 21:00 10/15/20 08:58 Isosorbide Mononitrate 20 Mg Tab PO Not Given BID [facility] Labetalol HCl 400 mg 10/08/20 09:00 10/15/20 08:59 Labetalol 100 Mg Tab PO Not Given BID [facility] Labetalol HCl 20 mg 10/08/20 05:10 10/14/20 11:31 Labetalol Hcl 100 Mg/20 Ml Vial SLOW IVP 4 ml Q4H PRN Administration SBP Greater Than 170 Melatonin 3 mg 10/15/20 00:45 10/15/20 03:02 Melatonin 3 Mg Tab PO 3 mg HSPRN PRN Administration Insomnia Sodium Bicarbonate 975 mg 10/09/20 15:00 10/15/20 08:56 Sodium Bicarbonate Tab 325 Mg Tab PO 975 mg TID [facility] Administration Throat Lozenges 1 dalton 10/11/20 04:49 10/12/20 20:42 Cepastat Lozenges 1 Dalton PO 1 dalton Q4H PRN Administration Sore Throat Hospitalist Exam Vitals: Vital Signs (12 hours) Temp Pulse Resp BP Pulse Ox 10/15/20 11:19 98.4 F 89 16 162/79 H 94 L 10/15/20 10:20 162/79 H 10/15/20 07:24 98.6 F 86 18 179/84 H 95 10/15/20 03:34 98.1 F 92 16 154/73 H 93 L Weight Weight 138 lb 8 oz Eye: PERRL, anicteric sclera ENT: normocephalic atraumatic Heart: RRR, no murmur, no gallops, no rubs, normal peripheral pulses Respiratory: CTAB, no wheezes, no rales, no ronchi Gastrointestinal: soft, non-tender, non-distended, normal bowel sounds, no palpable masses, no hepatomegaly Extremities: no cyanosis, no edema Hosp A/P (1) Chronic kidney disease, stage 4 (severe) Code(s): N18.4 - CHRONIC KIDNEY DISEASE, STAGE 4 (SEVERE) Status: Chronic (2) Diabetes type 2, uncontrolled Code(s): E11.65 - TYPE 2 DIABETES MELLITUS WITH HYPERGLYCEMIA Status: Chronic (3) GERD (gastroesophageal reflux disease) Code(s): K21.9 - GASTRO-ESOPHAGEAL REFLUX DISEASE WITHOUT ESOPHAGITIS Status: Chronic Qualifiers: Esophagitis presence: esophagitis presence not specified Qualified Code(s): K21.9 - Gastro-esophageal reflux disease without esophagitis (4) Hypertension Code(s): I10 - ESSENTIAL (PRIMARY) HYPERTENSION Status: Chronic Qualifiers: Hypertension type: essential hypertension Qualified Code(s): I10 - Essential (primary) hypertension (5) Nausea and vomiting Code(s): R11.2 - NAUSEA WITH VOMITING, UNSPECIFIED Status: Resolved (6) Rheumatoid arthritis Code(s): M06.9 - RHEUMATOID ARTHRITIS, UNSPECIFIED Status: Chronic Qualifiers: Rheumatoid arthritis location: knee Laterality: bilateral - Plan * Acute kidney injury- she is now requiring dialysis, she will have dialysis catheter placed on Friday * She is to begin dialysis soon * HTN- blood pressure is elevated- will increase the dose of Nifedipine, and continue her other medications * ? RA- this is likely the cause of her knee pain. Cultures from the aspirate are negative * Possible SLE- will try to communicate with her [employer] ( at [employer] ) sounds like she may have intended her to be started on Plaquenil * Nausea and vomiting- resolved
[2020-10-15] MEDS: HYDROcodone/Acetaminophen 5/325 mg Tablet PO PRN ×2 (12:16→19:00)
[2020-10-15] MEDS: diphenhydrAMINE 50 MG/ML VIAL IVP PRN ×2 (12:17→19:01)
--- NOTE | 2020-10-15 13:21 | PDOC.BPN ---
- Brief Progress Note Encounter Date: 10/15/20 Encounter Time: 13:21 Subjective: Patient says it has nausea has improved but she still has decreased appetite. She is awaiting for possible fistula placement in a.m. Review of systems Gen.: No fever, no chills All the 14 systems reviewed except for the ones mentioned above are negative Physical examination Vital Signs Temp 98.4 F 10/15/20 11:19 Pulse 87 10/15/20 15:00 Resp 16 10/15/20 11:19 BP 202/93 H 10/15/20 15:00 Pulse Ox 97 10/15/20 15:00 Intake & Output 10/14/20 10/15/20 10/15/20 18:59 06:59 18:59 Intake Total 480 Output Total 1800 Balance -1320 Intake: Oral 480 Output: Urine 1800 Other: Voiding Method Bedside Commode Bedside Commode Bedside Commode # Unmeasured Voids 1 # Bowel Movements 0 Constitutional: Patient is currently not in pain or discomfort HEENT: Mucous membranes moist, no icterus Neck: Trachea midline, no lymphadenopathy Heart: Regular rate and rhythm; no murmurs Lungs: Air entry equal bilateral; no wheezes Abdomen: Soft; non-tender; no guarding/tenderness/rebound Extremities: No calf tenderness; minimal pitting edema B/L Neurological: Patient is awake, following commands Skin: No rash, no ulcers Psychological: Not agitated Labs and Imaging reviewed Laboratory Results - last 24 hr 10/15/20 10/15/20 00:31 00:31 Urine Color Light-Yellow Urine Clarity Hazy Urine pH 6.5 Ur Specific [place] 1.015 Urine Protein 600 A Urine Glucose (UA) 200 A Urine Ketones Negative Urine Blood Negative Urine Nitrite Negative Urine Bilirubin Negative Urine Urobilinogen Normal Ur Leukocyte Esterase 75 A Urine RBC 0-3 Urine WBC 21-50 A Ur Squamous Epith Cells 4-6 A Ur Transition Epith Cell 0-3 A Urine Bacteria 1+ A U Random Total Protein 736 H Urine Creatinine 67.98 Active Medications Generic Name Dose Route Start Last Admin Trade Name Freq PRN Reason Stop Dose Admin Acetaminophen 650 mg 10/07/20 22:03 Acetaminophen 325 Mg Tab PO Q4H PRN Headache/Fever/Mild Pain (1-3) Acetaminophen 650 mg 10/07/20 22:03 Acetaminophen 650 Mg Suppository [place] Q4H PRN Headache/Fever/Mild Pain (1-3) Hydrocodone Bitart/Acetaminophen 2 tab 10/09/20 10:23 10/15/20 12:16 Hydrocodone/Acetaminophen 5/325 Mg Tablet PO 2 tab Q4H PRN Administration Moderate to Severe Pain (6-10) Alogliptin Benzoate 25 mg 10/13/20 09:00 10/15/20 08:54 Alogliptin 25 Mg Tab PO 25 mg DAILY SHO Administration Atorvastatin Calcium 40 mg 10/08/20 21:00 10/14/20 21:24 Atorvastatin Calcium 40 Mg Tab PO Not Given HS SHO Benzonatate 100 mg 10/10/20 04:36 10/11/20 04:30 Benzonatate 100 Mg Cap PO 100 mg TIDPRN PRN Administration Cough Calcium Carbonate 1,000 mg 10/12/20 21:00 10/15/20 08:57 Calcium Carbonate 500 Mg Chewtab PO Not Given BID SHO Clonidine 0.2 mg 10/12/20 15:00 10/15/20 15:40 Clonidine 0.1 Mg Tab PO 0.2 mg TID SHO Administration Dextrose/Water 25 gm 10/09/20 13:36 Dextrose 50% Abboject 50 Ml Syringe SLOW IVP PRN PRN Hypoglycemia Diphenhydramine HCl 12.5 mg 10/10/20 11:58 10/15/20 12:17 Diphenhydramine 50 Mg/Ml Vial IVP 12.5 mg Q6H PRN Administration Itching Docusate Sodium 100 mg 10/15/20 13:44 Docusate 100 Mg Cap PO BIDPRN PRN Constipation Enoxaparin Sodium 30 mg 10/08/20 09:00 10/15/20 08:58 Enoxaparin Sodium 30 Mg/0.3 Ml Syringe SC Not Given 0900 SHO Folic Acid 1 mg 10/08/20 09:00 10/15/20 08:58 Folic Acid 1 Mg Tab PO Not Given DAILY SHO Glucagon 1 mg 10/09/20 13:36 Glucagon 1 Mg/Ml Vial IM PRN PRN Hypoglycemia Hydralazine HCl 100 mg 10/08/20 09:00 10/15/20 15:40 Hydralazine 25 Mg Tab PO 100 mg TID SHO Administration Hydralazine HCl 10 mg 10/09/20 13:44 Hydralazine 20 Mg/Ml Vial SLOW IVP Q4H PRN Blood Pressure Dextrose/Water 1,000 mls @ 0 mls/hr 10/09/20 13:36 D5w IV .Q0M PRN Hypoglycemia As Directed Cefazolin Sodium/Dextrose 2 gm 50 mls @ 100 mls/hr 10/12/20 15:00 / Device IVPB ONCALL-OR SHO Promethazine HCl 25 mg/ Sodium 51 mls @ 204 mls/hr 10/14/20 10:30 Chloride IVPB Q6H PRN Nausea/Vomiting Insulin Human Lispro 0 units 10/09/20 13:36 10/09/20 18:29 Humalog 300 Units/3 Ml Vial SC 6 unit .MODERATE SLIDING SC PRN Administration Moderate Correctional Scale Isosorbide Mononitrate 20 mg 10/09/20 21:00 10/15/20 08:58 Isosorbide Mononitrate 20 Mg Tab PO Not Given BID SHO Labetalol HCl 400 mg 10/08/20 09:00 10/15/20 08:59 Labetalol 100 Mg Tab PO Not Given BID SHO Labetalol HCl 20 mg 10/08/20 05:10 10/14/20 11:31 Labetalol Hcl 100 Mg/20 Ml Vial SLOW IVP 4 ml Q4H PRN Administration SBP Greater Than 170 Melatonin 3 mg 10/15/20 00:45 10/15/20 03:02 Melatonin 3 Mg Tab PO 3 mg HSPRN PRN Administration Insomnia Nifedipine 90 mg 10/15/20 21:00 Nifedipine Xl 90 Mg Tab PO HS SHO Promethazine HCl 25 mg 10/14/20 10:30 Promethazine 25 Mg Tab PO Q6H PRN Nausea/Vomiting Sodium Bicarbonate 975 mg 10/09/20 15:00 10/15/20 15:38 Sodium Bicarbonate Tab 325 Mg Tab PO 975 mg TID SHO Administration Sodium Chloride 10 ml 10/07/20 21:45 Flush - Normal Saline 10 Ml Syringe IVF PRN PRN Saline Flush Throat Lozenges 1 dalton 10/11/20 04:49 10/12/20 20:42 Cepastat Lozenges 1 Dalton PO 1 dalton Q4H PRN Administration Sore Throat Assessment and plan CKD stage V Hypertension Anemia Hypocalcemia Patient's urine protein creatinine ratio is close to 11 gms with hypoalbuminemia. We will check complement levels in a.m. Patient has uncontrolled blood pressure, she is currently on multiple antihypertensives including clonidine, hydralazine, isosorbide, labetalol. Procardia dose has been increased today. Mahesh/padmini GOMES
[2020-10-15] MEDS ORDERED: Docusate 100 MG CAP PO PRN (13:44)
[2020-10-15] MEDS: Labetalol HCl 100 MG/20 ML VIAL SLOW IVP PRN (17:10)
[2020-10-15] MEDS: Atorvastatin Calcium 40 MG TAB PO SCH (20:26)
[2020-10-15] MEDS: NIFEdipine XL 90 MG TAB PO SCH (20:29)
[2020-10-16] MEDS: HYDROcodone/Acetaminophen 5/325 mg Tablet PO PRN (00:12)
[2020-10-16] MEDS: diphenhydrAMINE 50 MG/ML VIAL IVP PRN ×2 (00:13→21:24)
[2020-10-16 05:29] LABS: Complement-C4 42.5 mg/dL (15-57)
[2020-10-16] MEDS: Alogliptin 25 MG TAB PO SCH (08:16)
[2020-10-16] MEDS: Sodium Bicarbonate Tab 325 MG TAB PO SCH ×3 (08:16→21:12)
[2020-10-16] MEDS: Calcium Carbonate 500 MG ChewTAB PO SCH ×2 (08:18→21:11)
[2020-10-16] MEDS: Isosorbide Mononitrate 20 MG TAB PO SCH ×2 (08:18→21:13)
[2020-10-16] MEDS: hydrALAZINE 25 MG TAB PO SCH ×3 (08:18→21:13)
[2020-10-16] MEDS: Labetalol 100 MG TAB PO SCH ×2 (08:18→21:53)
[2020-10-16] MEDS: Folic Acid 1 MG TAB PO SCH (08:18)
[2020-10-16] MEDS: cloNIDine 0.1 MG TAB PO SCH ×3 (08:18→21:12)
[2020-10-16] MEDS: Enoxaparin Sodium 30 MG/0.3 ML SYRINGE SC SCH (08:18)
[2020-10-16 09:56] LABS: #Eosinphils 0.4 thou/uL (0.0-0.7); #Lymphocytes 1.6 thou/uL (1.20-3.40); #Monocytes 0.9 thou/uL (0.11-0.59); #Neutrophils 7.9 thou/uL (1.40-6.50); %Basophils 0.3 % (0.0-1.0); %Eosinophils 3.8 % (0.0-10.0); %Monocytes 8.4 % (0.0-10.0); %Neutrophils 72.5 % (42.0-75.0); Hemoglobin 8.6 g/dL (12.0-16.0); Mean Corpuscular HGB CONC 30.3 g/dL (32.0-36.0); Mean Corpuscular Hemoglobin 22.5 pg (27.0-31.0); Mean Corpuscular Volume 74.4 fL (78.0-98.0); Mean Platelet Volume 8.3 fL (7.4-10.4); Platelet Count 301 thou/uL (130-400); RBC Distribution Width 15.6 % (11.5-14.5)
[2020-10-16] MEDS ORDERED: Bupivacaine HCl 0.5%/Epinephrine 1:200,000/PF 30 ml Vial ONE (10:04)
[2020-10-16] MEDS ORDERED: Metoclopramide HCl 10 MG/2 ML VIAL ONE (10:04)
[2020-10-16] MEDS ORDERED: Ondansetron PF 4 MG/2 ML Vial ONE (10:04)
[2020-10-16 10:15] LABS: Anion Gap 17 mmol/L (10-20); BUN (Urea Nitrogen) 57 mg/dL (9.8-20.1); Calc. Creatinine Clearance 12 mL/min (70-130); Carbon Dioxide 24 mmol/L (23-31); Chloride 102 mmol/L (98-107); Glucose 155 mg/dL (80-115); Potassium 4.5 mmol/L (3.5-5.1); Sodium 138 mmol/L (136-145)
[2020-10-16] MEDS ORDERED: CEFAZOLIN 2 GM in Premix Bag 1 BAG IVPB SCH (11:00)
[2020-10-16] MEDS ORDERED: Fentanyl 100 MCG/2 ML VIAL ONE ×2 (11:03→11:50)
[2020-10-16] MEDS ORDERED: Protamine Sulfate 50 MG/5 ML VIAL ONE (11:32)
[2020-10-16] MEDS ORDERED: Heparin 5,000 UNITS/ML VIAL ONE (11:32)
[2020-10-16] MEDS ORDERED: Bupivacaine PF 0.5% 30 ML VIAL ONE (11:32)
[2020-10-16] MEDS ORDERED: EPINEPHrine 1 MG/ML AMP ONE (11:32)
[2020-10-16] MEDS ORDERED: Midazolam HCl 2 mg/2 ml Vial ONE (11:50)
[2020-10-16] MEDS ORDERED: Propofol 500 MG/50 ML VIAL ONE (11:50)
[2020-10-16] MEDS ORDERED: Heparin 10,000 UNITS/ 10 ML VIAL ONE (11:58)
[2020-10-16] MEDS ORDERED: CEFAZOLIN 1 GM VIAL ONE (12:48)
[2020-10-16] MEDS ORDERED: Promethazine HCl 25 MG/ML VIAL IM PRN (14:00)
[2020-10-16] MEDS ORDERED: Promethazine HCl 25 MG/ML VIAL SLOW IVP PRN (14:00)
[2020-10-16] MEDS ORDERED: Ondansetron HCl/PF 4 MG/2 ML Vial IVP PRN (14:00)
--- NOTE | 2020-10-16 16:08 | PRG ---
DATE OF SERVICE: 10/16/2020 SUBJECTIVE: Patient was seen and examined at bedside and overnight events noted. Patient denies any shortness of breath or chest pain or palpitation. No history of nausea or vomiting or diarrhea or fever or chills or cramps. OBJECTIVE: GENERAL: This is a well-built female, in no apparent distress. VITAL SIGNS: Temperature 99. Heart rate 93. Respiratory rate 18. Blood pressure 166/75. HEENT: Atraumatic, normocephalic. Oral mucosa is moist NECK: Supple. CARDIOVASCULAR: S1, S2 heard. Rate and rhythm regular. RESPIRATORY: Clear to auscultation. GASTROINTESTINAL: Abdomen is soft. MUSCULOSKELETAL: No tenderness. No edema. DERMATOLOGIC: No skin rash. NEUROLOGIC: Alert and awake and oriented X3. No focal neurologic deficits. Moving all the extremities. PSYCHIATRIC: Mood and affect normal. LABORATORY DATA: Potassium 4.5, BUN is 57, creatinine is 4.8. ASSESSMENT AND PLAN: 1. Acute kidney injury on chronic kidney disease, stage 4. Renal function is getting better. 2. The patient had a fistula placement. 3. History of hypertension. 4. Anemia. 5. Hypercalcemia. 6. Proteinuria. Renal function is getting better. No acute indication for dialysis. The patient had fistula today, and monitor. Job ID: [id number]
--- NOTE | 2020-10-16 17:03 | OP ---
DATE OF PROCEDURE: 10/16/2020 PREOPERATIVE DIAGNOSES: Chronic kidney disease, approaching need for dialysis, poor veins by vein mapping. POSTOPERATIVE DIAGNOSES: Chronic kidney disease, approaching need for dialysis, poor veins by vein mapping. PROCEDURE PERFORMED: Exploration of left proximal volar forearm, revealing cephalic vein to be thrombosed, basilic vein nonexistent. The left upper arm dialysis graft tapered between the brachial artery and axillary vein respectively. Axillary vein of excellent caliber. ANESTHESIA: Regional, TIVA, 0.5% Marcaine supplementation to axilla. DESCRIPTION OF PROCEDURE: The patient was taken to the operating room, where under regional anesthesia and intravenous sedation, left upper extremity was prepared with ChloraPrep and draped in routine fashion. Incision made in the proximal volar forearm below the antecubital fossa. Cephalic vein in upper arm . Basilic vein nonexistent. Subcutaneous tissue was approximated with 3-0 Monocryl, skin with subdermal 4-0 Monocryl. Incision was made in the distal upper arm above the antecubital fossa, carried down through skin and subcutaneous tissue, deep fascia, identifying a large brachial artery, surrounded with silastic vessel loop. Incision made in the left axilla, carried down through skin and subcutaneous tissue, deep fascia, noting the large axillary vein, controlled proximally and distally with silastic Castro loops. Jaylin-Wick tunneler used to tunnel a prosthetic graft, tapered 4 mm end near the arterial end above the antecubital fossa and the patient was given 6000 units of heparin intravenously, and after adequate circulation time, the brachial artery clamped proximally and distally, and longitudinal arteriotomy made sharply, elongated with Castro scissors and graft 4 mm and tailored to configuration, end graft to side brachial artery anastomosis completed with continuous suture of 6-0 Prolene. Vascular clamp released. Excellent flow in the graft. Clamp applied to the graft. Dry dressing applied to anastomosis. Silastic Castro loops used to control the axillary vein, perforating branch controlled with vascular clamp. Longitudinal venotomy made sharply for 3.5 cm anastomosis, placing the stay suture of 6-0 Prolene and 7 mm end of the graft tailored for Cobra-head anastomosis, end graft to side axillary vein with continuous suture of 6-0 Prolene, completing the anastomosis, releasing clamps, stay sutures, noting good hemostasis obtained with 6-0 Prolene and Surgicel. The patient was given 50 mg of protamine intravenously by Anesthesia. Subcutaneous tissue was approximated with 3-0 Monocryl, skin with subdermal Monocryl and Delphi glue applied. Job ID: [id number]
--- NOTE | 2020-10-16 17:24 | PDOC.HOSPP ---
- Subjective Encounter Date: 10/16/20 Encounter Time: 17:22 Subjective: Ms. Roberts was seen today in follow-up of new end stage renal disease. She does not have any complaints, other than feeling tired. She is groggy after surgery. - Objective Vital Signs & Weight: Vital Signs (12 hours) Temp Pulse Resp BP Pulse Ox 10/16/20 16:00 99.0 F 91 16 182/79 H 93 L 10/16/20 08:20 95 10/16/20 07:25 98.9 F 96 17 166/75 H 95 Weight Weight 140 lb I&O: 10/15/20 10/16/20 10/17/20 06:59 06:59 06:59 Intake Total 480 880 Output Total 1800 1150 Balance -1320 -270 Result Diagrams: 10/16/20 09:18 10/16/20 09:18 Hospitalist ROS - Medication Medications: Active Medications Generic Name Dose Route Start Last Admin Trade Name Freq PRN Reason Stop Dose Admin Alogliptin Benzoate 25 mg 10/13/20 09:00 10/16/20 08:16 Alogliptin 25 Mg Tab PO 25 mg DAILY SHO Administration Atorvastatin Calcium 40 mg 10/08/20 21:00 10/15/20 20:26 Atorvastatin Calcium 40 Mg Tab PO Not Given HS SHO Benzonatate 100 mg 10/10/20 04:36 10/11/20 04:30 Benzonatate 100 Mg Cap PO 100 mg TIDPRN PRN Administration Cough Calcium Carbonate 1,000 mg 10/12/20 21:00 10/16/20 08:18 Calcium Carbonate 500 Mg Chewtab PO Not Given BID SHO Clonidine 0.2 mg 10/12/20 15:00 10/16/20 15:33 Clonidine 0.1 Mg Tab PO Not Given TID SHO Diphenhydramine HCl 12.5 mg 10/10/20 11:58 10/16/20 00:13 Diphenhydramine 50 Mg/Ml Vial IVP 12.5 mg Q6H PRN Administration Itching Enoxaparin Sodium 30 mg 10/08/20 09:00 10/16/20 08:18 Enoxaparin Sodium 30 Mg/0.3 Ml Syringe SC Not Given 0900 SHO Folic Acid 1 mg 10/08/20 09:00 10/16/20 08:18 Folic Acid 1 Mg Tab PO Not Given DAILY [facility] Hydralazine HCl 100 mg 10/08/20 09:00 10/16/20 15:33 Hydralazine 25 Mg Tab PO Not Given TID [facility] Insulin Human Lispro 0 units 10/09/20 13:36 10/09/20 18:29 Humalog 300 Units/3 Ml Vial SC 6 unit .MODERATE SLIDING SC PRN Administration Moderate Correctional Scale Isosorbide Mononitrate 20 mg 10/09/20 21:00 10/16/20 08:18 Isosorbide Mononitrate 20 Mg Tab PO Not Given BID [facility] Labetalol HCl 400 mg 10/08/20 09:00 10/16/20 08:18 Labetalol 100 Mg Tab PO Not Given BID [facility] Labetalol HCl 20 mg 10/08/20 05:10 10/15/20 17:10 Labetalol Hcl 100 Mg/20 Ml Vial SLOW IVP 4 ml Q4H PRN Administration SBP Greater Than 170 Melatonin 3 mg 10/15/20 00:45 10/15/20 03:02 Melatonin 3 Mg Tab PO 3 mg HSPRN PRN Administration Insomnia Nifedipine 90 mg 10/15/20 21:00 10/15/20 20:29 Nifedipine Xl 90 Mg Tab PO 90 mg HS SHO Administration Sodium Bicarbonate 975 mg 10/09/20 15:00 10/16/20 15:33 Sodium Bicarbonate Tab 325 Mg Tab PO 975 mg TID [facility] Administration Throat Lozenges 1 dalton 10/11/20 04:49 10/12/20 20:42 Cepastat Lozenges 1 Dalton PO 1 [place] Q4H PRN Administration Sore Throat Hospitalist Exam Vitals: Vital Signs (12 hours) Temp Pulse Resp BP Pulse Ox 10/16/20 16:00 99.0 F 91 16 182/79 H 93 L 10/16/20 08:20 95 10/16/20 07:25 98.9 F 96 17 166/75 H 95 Weight Weight 140 lb General Appearance: NAD, awake alert Eye: PERRL, anicteric sclera Heart: RRR, no murmur, no gallops, no rubs, normal peripheral pulses Respiratory: CTAB, no wheezes, no rales, no ronchi, normal chest expansion, no tachypnea Gastrointestinal: soft, non-distended Extremities: no cyanosis, 1+ LE edema Hosp A/P (1) Chronic kidney disease, stage 4 (severe) Code(s): N18.4 - CHRONIC KIDNEY DISEASE, STAGE 4 (SEVERE) Status: Chronic (2) Diabetes type 2, uncontrolled Code(s): E11.65 - TYPE 2 DIABETES MELLITUS WITH HYPERGLYCEMIA Status: Chronic (3) GERD (gastroesophageal reflux disease) Code(s): K21.9 - GASTRO-ESOPHAGEAL REFLUX DISEASE WITHOUT ESOPHAGITIS Status: Chronic Qualifiers: Esophagitis presence: esophagitis presence not specified Qualified Code(s): K21.9 - Gastro-esophageal reflux disease without esophagitis (4) Hypertension Code(s): I10 - ESSENTIAL (PRIMARY) HYPERTENSION Status: Chronic Qualifiers: Hypertension type: essential hypertension Qualified Code(s): I10 - Essential (primary) hypertension (5) Nausea and vomiting Code(s): R11.2 - NAUSEA WITH VOMITING, UNSPECIFIED Status: Resolved (6) Rheumatoid arthritis Code(s): M06.9 - RHEUMATOID ARTHRITIS, UNSPECIFIED Status: Chronic Qualifiers: Rheumatoid arthritis location: knee Laterality: bilateral - Plan * Acute kidney injury- she is now requiring dialysis, she will have dialysis catheter placed on Friday * She is to begin dialysis soon * HTN- blood pressure is elevated- the dose of Nifedipine has been increased, will monitor a few days to see the effect * ? RA- this is likely the cause of her knee pain. Cultures from the aspirate are negative * Possible SLE- follow-up with her Vice Provost as an out patient * DM- continue Trajenta, but due to the severe renal impairment will discontinue Glyburide * PT/OT evaluation, to help in discharge planning
[2020-10-16] MEDS: Acetaminophen 500 MG TAB PO PRN (21:11)
[2020-10-16] MEDS: NIFEdipine XL 90 MG TAB PO SCH (21:13)
[2020-10-16] MEDS: Atorvastatin Calcium 40 MG TAB PO SCH (21:13)
[2020-10-17] MEDS: diphenhydrAMINE 50 MG/ML VIAL IVP PRN ×3 (03:35→17:51)
[2020-10-17] MEDS: traMADol HCl 50 MG TAB PO PRN ×2 (03:35→16:09)
--- NOTE | 2020-10-17 07:54 | PDOC.HOSPP ---
- Subjective Encounter Date: 10/17/20 Encounter Time: 08:02 Subjective: Ms. Roberts was seen this morning in follow-up of her AVF placement in her left arm. She reports pain in her left arm, however she is able to move it. She complains about her sugar monitor removed during surgery without her consent, and would like a new one. She still reports pain in her left knee as well. She has no other complaints. - Objective Vital Signs & Weight: Vital Signs (12 hours) Temp Pulse Resp BP Pulse Ox 10/17/20 07:16 99.2 F 90 17 159/70 H 94 L 10/17/20 03:32 99.8 F H 90 16 147/63 H 92 L 10/17/20 00:42 92 L Weight Weight 63.503 kg I&O: 10/16/20 10/17/20 10/18/20 06:59 06:59 06:59 Intake Total 880 1040 Output Total 1150 400 Balance -270 640 Result Diagrams: 10/16/20 09:18 10/16/20 09:18 Hospitalist ROS - Review of Systems Constitutional: denies: fever, chills Cardiovascular: denies: chest pain, palpitations Gastrointestinal: denies: nausea, vomiting, abdominal pain, diarrhea, constipation Musculoskeletal: reports: arm pain (At surgical site.) Neurological: denies: weakness - Medication Medications: Active Medications Generic Name Dose Route Start Last Admin Trade Name Freq PRN Reason Stop Dose Admin Acetaminophen 1,000 mg 10/16/20 14:01 10/16/20 21:11 Acetaminophen 500 Mg Tab PO 1,000 mg Q6H PRN Administration Moderate to Severe Pain (6-10) Alogliptin Benzoate 25 mg 10/13/20 09:00 10/16/20 08:16 Alogliptin 25 Mg Tab PO 25 mg DAILY SHO Administration Atorvastatin Calcium 40 mg 10/08/20 21:00 10/16/20 21:13 Atorvastatin Calcium 40 Mg Tab PO 40 mg HS SHO Administration Benzonatate 100 mg 10/10/20 04:36 10/11/20 04:30 Benzonatate 100 Mg Cap PO 100 mg TIDPRN PRN Administration Cough Calcium Carbonate 1,000 mg 10/12/20 21:00 10/16/20 21:11 Calcium Carbonate 500 Mg Chewtab PO 1,000 mg BID SHO Administration Clonidine 0.2 mg 10/12/20 15:00 10/16/20 21:12 Clonidine 0.1 Mg Tab PO 0.2 mg TID SHO Administration Diphenhydramine HCl 12.5 mg 10/10/20 11:58 10/17/20 03:35 Diphenhydramine 50 Mg/Ml Vial IVP 12.5 mg Q6H PRN Administration Itching Enoxaparin Sodium 30 mg 10/08/20 09:00 10/16/20 08:18 Enoxaparin Sodium 30 Mg/0.3 Ml Syringe SC Not Given 0900 [facility]CLUDES [facility] Folic Acid 1 mg 10/08/20 09:00 10/16/20 08:18 Folic Acid 1 Mg Tab PO Not Given DAILY [facility] Hydralazine HCl 100 mg 10/08/20 09:00 10/16/20 21:13 Hydralazine 25 Mg Tab PO 100 mg TID [facility] Administration Insulin Human Lispro 0 units 10/09/20 13:36 10/09/20 18:29 Humalog 300 Units/3 Ml Vial SC 6 unit .MODERATE SLIDING SC PRN Administration Moderate Correctional Scale Isosorbide Mononitrate 20 mg 10/09/20 21:00 10/16/20 21:13 Isosorbide Mononitrate 20 Mg Tab PO 20 mg BID [facility] Administration Labetalol HCl 400 mg 10/08/20 09:00 10/16/20 21:53 Labetalol 100 Mg Tab PO Not Given BID [facility] Labetalol HCl 20 mg 10/08/20 05:10 10/15/20 17:10 Labetalol Hcl 100 Mg/20 Ml Vial SLOW IVP 4 ml Q4H PRN Administration SBP Greater Than 170 Melatonin 3 mg 10/15/20 00:45 10/15/20 03:02 Melatonin 3 Mg Tab PO 3 mg HSPRN PRN Administration Insomnia Nifedipine 90 mg 10/15/20 21:00 10/16/20 21:13 Nifedipine Xl 90 Mg Tab PO 90 mg HS SHO Administration Sodium Bicarbonate 975 mg 10/09/20 15:00 10/16/20 21:12 Sodium Bicarbonate Tab 325 Mg Tab PO 975 mg TID SHO Administration Throat Lozenges 1 [place] 10/11/20 04:49 10/12/20 20:42 Cepastat Lozenges 1 Dalton PO 1 [place] Q4H PRN Administration Sore Throat Tramadol HCl 50 mg 10/16/20 14:01 10/17/20 03:35 Tramadol Hcl 50 Mg Tab PO 50 mg Q12H PRN Administration Pain Hospitalist Exam Vitals: Vital Signs (12 hours) Temp Pulse Resp BP Pulse Ox 10/17/20 07:16 99.2 F 90 17 159/70 H 94 L 10/17/20 03:32 99.8 F H 90 16 147/63 H 92 L 10/17/20 00:42 92 L Weight Weight 63.503 kg Eye: PERRL Neck: no JVD Heart: RRR, no murmur, no gallops, no rubs Respiratory: CTAB, no wheezes, no rales, no ronchi, normal chest expansion Extremities: no cyanosis Skin - other findings: Surgical site is healing properly; no erythema, slight exudate Psychiatric: A&O x 3 Hosp A/P - Plan Chest pain Code(s): R07.9 - CHEST PAIN, UNSPECIFIED Status: Acute (2) Renal failure (ARF), acute on chronic Code(s): N17.9 - ACUTE KIDNEY FAILURE, UNSPECIFIED; N18.9 - CHRONIC KIDNEY DISEASE, UNSPECIFIED Status: Acute (3) Rheumatoid arthritis involving both ankles Code(s): M06.9 - RHEUMATOID ARTHRITIS, UNSPECIFIED Status: Acute (4) DM2 (diabetes mellitus, type 2) Status: Chronic Qualifiers: Diabetes mellitus complication status: with kidney complications Diabetes mellitus complication detail: with chronic kidney disease Chronic kidney disease stage: stage 3 (moderate) (5) Hypertension Code(s): I10 - ESSENTIAL (PRIMARY) HYPERTENSION Status: Chronic Qualifiers: Hypertension type: essential hypertension Qualified Code(s): I10 - Essential (primary) hypertension (6) Hypomagnesemia Code(s): E83.42 - HYPOMAGNESEMIA Status: Resolved (7) Leukocytosis Code(s): D72.829 - ELEVATED WHITE BLOOD CELL COUNT, UNSPECIFIED Status: Acute (8) Nausea and vomiting Code(s): R11.2 - NAUSEA WITH VOMITING, UNSPECIFIED Status: Acute * Acute kidney injury- catheter was placed, and she will begin dialysis shortly. * HTN- blood pressure is elevated at 159/70mmHg. * Knee pain- likely SLE; consider steroid injection * DM- stable; continue Trajenta * Hypocalcemia--continue TUMS with food * Anemia--declined slightly * PT/OT evaluation, to help in discharge planning
[2020-10-17] MEDS: Sodium Bicarbonate Tab 325 MG TAB PO SCH ×3 (08:54→19:48)
[2020-10-17] MEDS: Acetaminophen 500 MG TAB PO PRN (08:54)
[2020-10-17] MEDS: Alogliptin 6.25 MG TAB PO SCH (08:54)
[2020-10-17 09:30] LABS: Anion Gap 17 mmol/L (10-20); BUN (Urea Nitrogen) 56 mg/dL (9.8-20.1); Calc. Creatinine Clearance 11 mL/min (70-130); Calcium 7.2 mg/dL (7.8-10.44); Carbon Dioxide 23 mmol/L (23-31); Chloride 100 mmol/L (98-107); Glucose 204 mg/dL (80-115); Potassium 4.6 mmol/L (3.5-5.1); Sodium 135 mmol/L (136-145)
[2020-10-17 09:31] LABS: #Eosinphils 0.2 thou/uL (0.0-0.7); #Lymphocytes 1.8 thou/uL (1.20-3.40); #Monocytes 1.4 thou/uL (0.11-0.59); #Neutrophils 10.2 thou/uL (1.40-6.50); %Basophils 0.2 % (0.0-1.0); %Eosinophils 1.1 % (0.0-10.0); %Lymphocytes 13.1 % (21.0-51.0); %Monocytes 10.1 % (0.0-10.0); %Neutrophils 75.5 % (42.0-75.0); Hemoglobin 8.6 g/dL (12.0-16.0); Mean Corpuscular Hemoglobin 22.2 pg (27.0-31.0); Mean Corpuscular Volume 74.1 fL (78.0-98.0); Mean Platelet Volume 8.5 fL (7.4-10.4); Platelet Count 296 thou/uL (130-400); RBC Distribution Width 15.6 % (11.5-14.5); Red Blood Cell (RBC) Count 3.86 mill/uL (4.20-5.40); White Blood Cell (WBC) Count 13.5 thou/uL (4.8-10.8)
[2020-10-17] MEDS: Calcium Carbonate 500 MG ChewTAB PO SCH ×2 (09:42→19:55)
[2020-10-17] MEDS: cloNIDine 0.1 MG TAB PO SCH ×3 (09:42→19:56)
[2020-10-17] MEDS: Enoxaparin Sodium 30 MG/0.3 ML SYRINGE SC SCH (09:43)
[2020-10-17] MEDS: Labetalol 100 MG TAB PO SCH ×2 (09:43→19:56)
[2020-10-17] MEDS: Isosorbide Mononitrate 20 MG TAB PO SCH ×2 (09:43→19:56)
[2020-10-17] MEDS: Folic Acid 1 MG TAB PO SCH (09:43)
[2020-10-17] MEDS: hydrALAZINE 25 MG TAB PO SCH ×3 (09:43→19:56)
[2020-10-17 10:13] LABS: Hypochromia MODERATE=16-30 cells (100X) (0-5/hpf); MDiff Complete? YES; Microcytosis SLIGHT = 6-15 cells (100X) (0-5/hpf); Platelet Morphology Comment Appears Adequate; Polychromasia MODERATE = 3-4 cells (100X) (0-2/hpf)
--- NOTE | 2020-10-17 13:26 | PRG ---
DATE OF SERVICE: 10/17/2020 Wendy Roberts has not yet started dialysis. She had a left upper arm dialysis graft placed yesterday. She complains that her glucose monitor was removed during the operation and discarded. She reminds us it is one time use, cannot be reapplied. It had to be removed yesterday to prep her left arm for her dialysis access. She is 6 to 7 days away from replacing it anyway. I have told her the hospital does not have these items, and if she wants to replace it, she will need to have one of her family members bring it from [facility] or her home. The patient otherwise will need to do Accu-Cheks. She tells me she cannot do Accu-Chek. She cannot still stand the pain to the finger pricks. I have talked to the patient's nurse and the charge nurse informing her this. Again, I informed the patient we had to remove the monitoring device to prep her left arm for her dialysis access. The patient has not yet started dialysis. She will need 3 to 4 weeks healing left arm graft prior to use. 98.9 degrees, 89, and 138/63. This morning, potassium is 4.6, BUN 56, creatinine 4.94, GFR 11, and carbon dioxide 23. Left arm surgical sites are well healed. She has good thrill and bruit in her graft. At this point, I will see her as needed in this hospitalization. She will need to follow up with me in the office in 2 to 3 weeks. This graft should be ready to access in 3 to 4 weeks, 4 weeks preferably, it could be accessed early if absolutely necessary. I will see her as needed, please call if necessary. Job ID: [id number]
--- NOTE | 2020-10-17 16:20 | PRG ---
DATE OF SERVICE: 10/17/2020 SUBJECTIVE: Patient was seen and examined at bedside and overnight events noted. Patient denies any shortness of breath or chest pain or palpitation. No history of nausea or vomiting or diarrhea or fever or chills or cramps. OBJECTIVE: GENERAL: This is well-built female, in no apparent distress. VITAL SIGNS: Temperature , pulse 85, respiratory rate 20, and blood pressure 138/63. HEENT: Atraumatic, normocephalic. Oral mucosa is moist. NECK: Supple. CARDIOVASCULAR: S1, S2 heard. Rate and rhythm regular. RESPIRATORY: Clear to auscultation. GASTROINTESTINAL: Abdomen is soft. MUSCULOSKELETAL: No tenderness. No edema. DERMATOLOGIC: No skin rash. NEUROLOGIC: Alert and awake and oriented x3. No focal neurologic deficits. Moving all the extremities. PSYCHIATRIC: Mood and affect normal. LABORATORY DATA: Potassium 4.6, BUN is 56, and creatinine is 4.9. ASSESSMENT AND PLAN: 1. Chronic kidney disease, stage 5, stable, status post fistula. Complains of pain. 2. History of hypertension. 3. Anemia. 4. Hypercalcemia. 5. Proteinuria. Labs are stable. No acute indication for dialysis. Avoid nephrotoxins. Job ID: [id number]
--- NOTE | 2020-10-17 17:44 | PDOC.HOSPP ---
- Subjective Encounter Date: 10/17/20 Encounter Time: 17:42 Subjective: Ms. Roberts was seen today in follow-up of new end stage renal disease. She is feeling a bit better, but she does not some numbness in her fingers on the left hand. - Objective Vital Signs & Weight: Vital Signs (12 hours) Temp Pulse Resp BP Pulse Ox 10/17/20 16:57 98.1 F 75 16 153/74 H 95 10/17/20 16:00 98.4 F 89 17 167/74 H 97 10/17/20 14:23 98.7 F 85 17 131/60 94 L 10/17/20 12:00 98.9 F 89 17 138/63 95 10/17/20 08:53 94 L 10/17/20 07:16 99.2 F 90 17 159/70 H 94 L Weight Weight 140 lb I&O: 10/16/20 10/17/20 10/18/20 06:59 06:59 06:59 Intake Total 880 1040 Output Total 1150 400 Balance -270 640 Result Diagrams: 10/17/20 08:51 10/17/20 08:51 Additional Labs: Accuchecks 10/17/20 10/17/20 16:24 10:45 POC Glucose 86 208 H Hospitalist ROS - Medication Medications: Active Medications Generic Name Dose Route Start Last Admin Trade Name Freq PRN Reason Stop Dose Admin Acetaminophen 1,000 mg 10/16/20 14:01 10/17/20 08:54 Acetaminophen 500 Mg Tab PO 1,000 mg Q6H PRN Administration Moderate to Severe Pain (6-10) Alogliptin Benzoate 6.25 mg 10/17/20 09:00 10/17/20 08:54 Alogliptin 6.25 Mg Tab PO 6.25 mg DAILY SHO Administration Atorvastatin Calcium 40 mg 10/08/20 21:00 10/16/20 21:13 Atorvastatin Calcium 40 Mg Tab PO 40 mg HS SHO Administration Benzonatate 100 mg 10/10/20 04:36 10/11/20 04:30 Benzonatate 100 Mg Cap PO 100 mg TIDPRN PRN Administration Cough Calcium Carbonate 1,000 mg 10/12/20 21:00 10/17/20 09:42 Calcium Carbonate 500 Mg Chewtab PO Not Given BID SHO Clonidine 0.2 mg 10/12/20 15:00 10/17/20 16:10 Clonidine 0.1 Mg Tab PO Not Given TID [facility] Diphenhydramine HCl 12.5 mg 10/10/20 11:58 10/17/20 11:13 Diphenhydramine 50 Mg/Ml Vial IVP 12.5 mg Q6H PRN Administration Itching Enoxaparin Sodium 30 mg 10/08/20 09:00 10/17/20 09:43 Enoxaparin Sodium 30 Mg/0.3 Ml Syringe SC Not Given 0900 [facility] Folic Acid 1 mg 10/08/20 09:00 10/17/20 09:43 Folic Acid 1 Mg Tab PO Not Given DAILY [facility] Hydralazine HCl 100 mg 10/08/20 09:00 10/17/20 16:10 Hydralazine 25 Mg Tab PO Not Given TID [facility] Insulin Human Lispro 0 units 10/09/20 13:36 10/09/20 18:29 Humalog 300 Units/3 Ml Vial SC 6 unit .MODERATE SLIDING SC PRN Administration Moderate Correctional Scale Isosorbide Mononitrate 20 mg 10/09/20 21:00 10/17/20 09:43 Isosorbide Mononitrate 20 Mg Tab PO Not Given BID [facility] Labetalol HCl 400 mg 10/08/20 09:00 10/17/20 09:43 Labetalol 100 Mg Tab PO Not Given BID [facility] Labetalol HCl 20 mg 10/08/20 05:10 10/15/20 17:10 Labetalol Hcl 100 Mg/20 Ml Vial SLOW IVP 4 ml Q4H PRN Administration SBP Greater Than 170 Melatonin 3 mg 10/15/20 00:45 10/15/20 03:02 Melatonin 3 Mg Tab PO 3 mg HSPRN PRN Administration Insomnia Nifedipine 90 mg 10/15/20 21:00 10/16/20 21:13 Nifedipine Xl 90 Mg Tab PO 90 mg HS SHO Administration Sodium Bicarbonate 975 mg 10/09/20 15:00 10/17/20 16:10 Sodium Bicarbonate Tab 325 Mg Tab PO 975 mg TID SHO Administration Throat Lozenges 1 dalton 10/11/20 04:49 10/12/20 20:42 Cepastat Lozenges 1 Dalton PO 1 dalton Q4H PRN Administration Sore Throat Tramadol HCl 50 mg 10/16/20 14:01 10/17/20 16:09 Tramadol Hcl 50 Mg Tab PO 50 mg Q12H PRN Administration Pain Hospitalist Exam Vitals: Vital Signs (12 hours) Temp Pulse Resp BP Pulse Ox 10/17/20 16:57 98.1 F 75 16 153/74 H 95 10/17/20 16:00 98.4 F 89 17 167/74 H 97 10/17/20 14:23 98.7 F 85 17 131/60 94 L 10/17/20 12:00 98.9 F 89 17 138/63 95 10/17/20 08:53 94 L 10/17/20 07:16 99.2 F 90 17 159/70 H 94 L Weight Weight 140 lb Eye: PERRL, anicteric sclera Heart: RRR, no murmur, no gallops, no rubs, normal peripheral pulses Respiratory: CTAB, no wheezes, no rales, no ronchi, normal chest expansion, no tachypnea, normal percussion Gastrointestinal: soft, non-tender, non-distended, normal bowel sounds, no palpable masses, no hepatomegaly Extremities: no cyanosis, no edema (+ palpable radial and ulnar pulse on the left hand, but diminished, capillary refill is a bit sluggish, hand is warm) Hosp A/P (1) Chronic kidney disease, stage 4 (severe) Code(s): N18.4 - CHRONIC KIDNEY DISEASE, STAGE 4 (SEVERE) Status: Chronic (2) Diabetes type 2, uncontrolled Code(s): E11.65 - TYPE 2 DIABETES MELLITUS WITH HYPERGLYCEMIA Status: Chronic (3) GERD (gastroesophageal reflux disease) Code(s): K21.9 - GASTRO-ESOPHAGEAL REFLUX DISEASE WITHOUT ESOPHAGITIS Status: Chronic Qualifiers: Esophagitis presence: esophagitis presence not specified Qualified Code(s): K21.9 - Gastro-esophageal reflux disease without esophagitis (4) Hypertension Code(s): I10 - ESSENTIAL (PRIMARY) HYPERTENSION Status: Chronic Qualifiers: Hypertension type: essential hypertension Qualified Code(s): I10 - Es sential (primary) hypertension (5) Nausea and vomiting Code(s): R11.2 - NAUSEA WITH VOMITING, UNSPECIFIED Status: Resolved (6) Rheumatoid arthritis Code(s): M06.9 - RHEUMATOID ARTHRITIS, UNSPECIFIED Status: Chronic Qualifiers: Rheumatoid arthritis location: knee Laterality: bilateral - Plan * Acute kidney injury-She is approaching the need for dialysis, She has had a AV fistula placed * She is to begin dialysis soon- but likely as outpatient * HTN- blood pressure is elevated- the dose of Nifedipine has been increased, will monitor a few days to see the effect * Knee pain- has resolved * Possible SLE- follow-up with her Digital Community Manager as an out patient * DM- continue Trajenta, and SSI * PT/OT evaluation, to help in discharge planning
[2020-10-17] MEDS: diphenhydrAMINE 25 MG CAP PO PRN (19:48)
[2020-10-17] MEDS: Acetaminophen/Codeine 30-300mg Tablet PO PRN (19:48)
[2020-10-17] MEDS: Atorvastatin Calcium 40 MG TAB PO SCH (19:55)
[2020-10-17] MEDS: NIFEdipine XL 90 MG TAB PO SCH (19:56)
[2020-10-18] MEDS: Acetaminophen/Codeine 30-300mg Tablet PO PRN ×3 (00:14→20:24)
[2020-10-18] MEDS ORDERED: Morphine 4 MG/ML VIAL ONE (03:28)
--- NOTE | 2020-10-18 08:24 | PDOC.HOSPP ---
- Subjective Encounter Date: 10/18/20 Encounter Time: 08:21 Subjective: Mrs. Roberts was seen this morning in follow up of her left arm pain post-op. She complains that the pain is unbearable and rates it as a 9/10. Last night, she was given morphine and benadryl that helped her feel better. [place] feel comfortable going home with this much pain. The catalytic case operator has not stopped by to speak to her about home health options yet. She has no left knee pain today. - Objective Vital Signs & Weight: Vital Signs (12 hours) Temp Pulse Resp BP Pulse Ox 10/18/20 08:00 98.6 F 104 H 20 176/74 H 92 L 10/18/20 00:10 98.1 F 88 18 120/62 94 L Weight Weight 63.503 kg I&O: 10/17/20 10/18/20 10/19/20 06:59 06:59 06:59 Intake Total 1040 700 Output Total 400 Balance 640 700 Result Diagrams: 10/17/20 08:51 10/17/20 08:51 Additional Labs: Accuchecks 10/17/20 10/17/20 16:24 10:45 POC Glucose 86 208 H Hospitalist ROS - Review of Systems Constitutional: denies: fever Respiratory: denies: cough, shortness of breath Cardiovascular: denies: chest pain, palpitations Gastrointestinal: denies: nausea, vomiting, abdominal pain - Medication Medications: Active Medications Generic Name Dose Route Start Last Admin Trade Name Freq PRN Reason Stop Dose Admin Acetaminophen 1,000 mg 10/16/20 14:01 10/17/20 08:54 Acetaminophen 500 Mg Tab PO 1,000 mg Q6H PRN Administration Moderate to Severe Pain (6-10) Acetaminophen/Codeine Phosphate 1 tab 10/17/20 18:56 10/18/20 00:14 Acetaminophen/Codeine 30-300mg Tablet PO 1 tab Q4H PRN Administration Moderate Pain (4-6) Alogliptin Benzoate 6.25 mg 10/17/20 09:00 10/17/20 08:54 Alogliptin 6.25 Mg Tab PO 6.25 mg DAILY SHO Administration Atorvastatin Calcium 40 mg 10/08/20 21:00 10/17/20 19:55 Atorvastatin Calcium 40 Mg Tab PO Not Given HS SHO Benzonatate 100 mg 10/10/20 04:36 10/11/20 04:30 Benzonatate 100 Mg Cap PO 100 mg TIDPRN PRN Administration Cough Calcium Carbonate 1,000 mg 10/12/20 21:00 10/17/20 19:55 Calcium Carbonate 500 Mg Chewtab PO Not Given BID [facility] Clonidine 0.2 mg 10/12/20 15:00 10/17/20 19:56 Clonidine 0.1 Mg Tab PO Not Given TID [facility] Diphenhydramine HCl 12.5 mg 10/10/20 11:58 10/17/20 17:51 Diphenhydramine 50 Mg/Ml Vial IVP 12.5 mg Q6H PRN Administration Itching Diphenhydramine HCl 25 mg 10/17/20 18:56 10/17/20 19:48 Diphenhydramine 25 Mg Cap PO 25 mg Q6H PRN Administration Itching & Insomnia Enoxaparin Sodium 30 mg 10/08/20 09:00 10/17/20 09:43 Enoxaparin Sodium 30 Mg/0.3 Ml Syringe SC Not Given 09 [facility] Folic Acid 1 mg 10/08/20 09:00 10/17/20 09:43 Folic Acid 1 Mg Tab PO Not Given DAILY [facility] Hydralazine HCl 100 mg 10/08/20 09:00 10/17/20 19:56 Hydralazine 25 Mg Tab PO Not Given TID [facility] Insulin Human Lispro 0 units 10/09/20 13:36 10/09/20 18:29 Humalog 300 Units/3 Ml Vial SC 6 unit .MODERATE SLIDING SC PRN Administration Moderate Correctional Scale Isosorbide Mononitrate 20 mg 10/09/20 21:00 10/17/20 19:56 Isosorbide Mononitrate 20 Mg Tab PO Not Given BID [facility] Labetalol HCl 400 mg 10/08/20 09:00 10/17/20 19:56 Labetalol 100 Mg Tab PO Not Given BID [facility] Labetalol HCl 20 mg 10/08/20 05:10 10/15/20 17:10 Labetalol Hcl 100 Mg/20 Ml Vial SLOW IVP 4 ml Q4H PRN Administration SBP Greater Than 170 Melatonin 3 mg 10/15/20 00:45 10/15/20 03:02 Melatonin 3 Mg Tab PO 3 mg HSPRN PRN Administration Insomnia Nifedipine 90 mg 10/15/20 21:00 10/17/20 19:56 Nifedipine Xl 90 Mg Tab PO Not Given HS SHO Sodium Bicarbonate 975 mg 10/09/20 15:00 10/17/20 19:48 Sodium Bicarbonate Tab 325 Mg Tab PO 975 mg TID SHO Administration Throat Lozenges 1 dalton 10/11/20 04:49 10/12/20 20:42 Cepastat Lozenges 1 Dalton PO 1 dalton Q4H PRN Administration Sore Throat Tramadol HCl 50 mg 10/16/20 14:01 10/17/20 16:09 Tramadol Hcl 50 Mg Tab PO 50 mg Q12H PRN Administration Pain Hospitalist Exam Vitals: Vital Signs (12 hours) Temp Pulse Resp BP Pulse Ox 10/18/20 08:00 98.6 F 104 H 20 176/74 H 92 L 10/18/20 00:10 98.1 F 88 18 120/62 94 L Weight Weight 63.503 kg Heart: RRR, no murmur, no gallops, no rubs, normal peripheral pulses Heart - other findings: tachycardic Respiratory: CTAB, no wheezes, no rales, no ronchi, normal chest expansion Extremities: no edema Skin - other findings: Incision site is clean with no signs of infection Musculoskeletal - other findings: knee non-tender, non-erythematous Psychiatric: A&O x 3 Hosp A/P - Plan Chest pain Code(s): R07.9 - CHEST PAIN, UNSPECIFIED Status: Acute (2) Renal failure (ARF), acute on chronic Code(s): N17.9 - ACUTE KIDNEY FAILURE, UNSPECIFIED; N18.9 - CHRONIC KIDNEY DISEASE, UNSPECIFIED Status: Acute (3) Rheumatoid arthritis involving both ankles Code(s): M06.9 - RHEUMATOID ARTHRITIS, UNSPECIFIED Status: Acute (4) DM2 (diabetes mellitus, type 2) Status: Chronic Qualifiers: Diabetes mellitus complication status: with kidney complications Diabetes mellitus complication detail: with chronic kidney disease Chronic kidney disease stage: stage 3 (moderate) (5) Hypertension Code(s): I10 - ESSENTIAL (PRIMARY) HYPERTENSION Status: Chronic Qualifiers: Hypertension type: essential hypertension Qualified Code(s): I10 - Essential (primary) hypertension (6) Hypomagnesemia Code(s): E83.42 - HYPOMAGNESEMIA Status: Resolved (7) Leukocytosis Code(s): D72.829 - ELEVATED WHITE BLOOD CELL COUNT, UNSPECIFIED Status: Acute (8) Nausea and vomiting Code(s): R11.2 - NAUSEA WITH VOMITING, UNSPECIFIED Status: Acute * Acute kidney injury- catheter was placed in her left arm and will need 3-4 wks of healing before use per Dr. Tracey . * HTN- stable * Knee pain- resolved * DM- stable; continue Trajenta * Hypocalcemia--continue TUMS with food * Anemia--declined slightly * PT/OT evaluation, to help in discharge planning
[2020-10-18] MEDS: Sodium Bicarbonate Tab 325 MG TAB PO SCH ×2 (08:33→13:57)
[2020-10-18] MEDS: Alogliptin 6.25 MG TAB PO SCH (08:33)
[2020-10-18] MEDS: cloNIDine 0.1 MG TAB PO SCH ×3 (08:36→20:11)
[2020-10-18] MEDS: hydrALAZINE 25 MG TAB PO SCH ×3 (08:37→20:11)
[2020-10-18] MEDS: Isosorbide Mononitrate 20 MG TAB PO SCH ×2 (08:38→20:12)
[2020-10-18] MEDS: Labetalol 100 MG TAB PO SCH ×2 (08:41→20:12)
[2020-10-18] MEDS: Enoxaparin Sodium 30 MG/0.3 ML SYRINGE SC SCH (08:42)
[2020-10-18] MEDS: Folic Acid 1 MG TAB PO SCH (08:42)
[2020-10-18] MEDS: Calcium Carbonate 500 MG ChewTAB PO SCH ×2 (08:42→20:11)
[2020-10-18] MEDS: diphenhydrAMINE 50 MG/ML VIAL IVP PRN (08:53)
[2020-10-18] MEDS ORDERED: Iopamidol 370 76% 50 ML VIAL FS ONE (10:03)
[2020-10-18] MEDS ORDERED: Morphine 2 MG/ML VIAL SLOW IVP SCH (11:15)
--- NOTE | 2020-10-18 15:00 | PRG ---
DATE OF SERVICE: 10/18/2020 SUBJECTIVE: Patient was seen and examined at bedside and overnight events noted. Patient denies any shortness of breath or chest pain or palpitation. No history of nausea or vomiting or diarrhea or fever or chills or cramps. OBJECTIVE: GENERAL: This is a well-built female, in no apparent distress. VITAL SIGNS: Temperature 98.5. Heart rate 96. Respiratory rate 20. Blood pressure 163/71. HEENT: Atraumatic, normocephalic. Oral mucosa is moist. NECK: Supple. CARDIOVASCULAR: S1, S2 heard. Rate and rhythm regular. RESPIRATORY: Clear to auscultation. GASTROINTESTINAL: Abdomen is soft. MUSCULOSKELETAL: No tenderness. No edema. DERMATOLOGIC: No skin rash. NEUROLOGIC: Alert and awake and oriented x3. No focal neurologic deficits. Moving all the extremities. PSYCHIATRIC: Mood and affect normal. LABORATORY DATA: No labs done today. ASSESSMENT AND PLAN: 1. Chronic kidney disease, stage 5, stable. We will recheck labs. 2. History of hypertension. 3. Anemia of chronic disease. 4. Proteinuria. No indication for dialysis. We will recheck labs in the morning. We will give a dose of morphine for pain control if the patient is complaining of increased amount of pain today. Job ID: [id number]
[2020-10-18] MEDS ORDERED: Lidocaine 1% (PF) 30 ML VIAL ONE (15:41)
--- NOTE | 2020-10-18 15:45 | PRG ---
DATE OF SERVICE: 10/18/2020 Wendy Roberts today complains of left hand pain. She has severe weakness, although her hand is warm. She has very faint dopplerable pulses, radial and ulnar. Yesterday when I examined her, she had good hand strength and mobility, but at this point, would suspect that she has ischemic hand from her dialysis graft, although a tapered graft was used to prevent such. I have asked Dr. Darren Roberts to see her. He will probably plan arteriography. She may need a DRIL procedure in the next day or 2. Await Dr. Roberts's evaluation. Job ID: [id number]
[2020-10-18] MEDS ORDERED: Fentanyl 100 MCG/2 ML VIAL ONE (16:11)
[2020-10-18] MEDS ORDERED: Midazolam HCl 2 mg/2 ml Vial ONE (16:11)
[2020-10-18] MEDS ORDERED: CEFAZOLIN 2 GM in Premix Bag 1 BAG IVPB SCH (17:00)
--- NOTE | 2020-10-18 17:42 | PDOC.BPN ---
- Brief Progress Note Encounter Date: 10/18/20 Encounter Time: 17:40 Plan to see patient but she was in surgery. There was concern for hand ischemia following the AV- fistula. She will possibly have DRIL procedure.
--- NOTE | 2020-10-18 19:37 | CON ---
DATE OF CONSULTATION: 10/18/2020 HISTORY OF PRESENT ILLNESS: Ms. Roberts is 2 days postop from a left brachial axillary vein dialysis fistula. She is complaining today of left hand numbness and severe pain in her left arm. She is very difficult to examine due to the amount of pain she is having. She has no previous history of arm pain. She is due to start dialysis soon. PAST MEDICAL HISTORY: 1. End-stage renal disease. 2. Diabetes mellitus. 3. Hypertension. PAST SURGICAL HISTORY: Left arm brachial axillary fistula. CURRENT MEDICATIONS: Noted. ALLERGIES: SULFA, CODEINE, AND CITRIC ACID. PHYSICAL EXAMINATION: GENERAL: This is a well-developed, well-nourished woman, obviously in pain. VITAL SIGNS: Height is 5 feet and 1 inch, weight is 140 pounds. Temperature is 98.5, pulse is 96 and regular, and blood pressure is 163/71. HEENT: Sclerae are nonicteric. Pupils are equal and round bilaterally. NECK: Supple. She has no carotid bruits. CHEST: Clear bilaterally. CARDIAC: Heart rhythm is regular without murmur. ABDOMEN: Soft and nontender. EXTREMITIES: Again, she is difficult to examine her left upper extremity due to pain. She has a palpable thrill within her fistula. She does even with compression have too much pain for her to allow further examination. I cannot palpate a radial pulse, but her hand is warm. ASSESSMENT AND PLAN: Recent dialysis fistula placement with pain in her hand. The concern is that she has an ischemic hand with steal. I discussed angiograms with her and she is agreeable to proceed. Job ID: [id number]
[2020-10-18] MEDS: Acetaminophen 500 MG TAB PO PRN (20:04)
[2020-10-18] MEDS: Atorvastatin Calcium 40 MG TAB PO SCH (20:11)
[2020-10-18] MEDS: NIFEdipine XL 90 MG TAB PO SCH (20:12)
[2020-10-18] MEDS: diphenhydrAMINE 25 MG CAP PO PRN (20:24)
[2020-10-19] MEDS: Labetalol 100 MG TAB PO SCH ×2 (06:05→20:12)
[2020-10-19 06:44] LABS: #Eosinphils 0.1 thou/uL (0.0-0.7); #Lymphocytes 1.2 thou/uL (1.20-3.40); #Monocytes 1.5 thou/uL (0.11-0.59); #Neutrophils 9.1 thou/uL (1.40-6.50); %Basophils 0.2 % (0.0-1.0); %Eosinophils 1.3 % (0.0-10.0); %Lymphocytes 10.2 % (21.0-51.0); %Monocytes 12.8 % (0.0-10.0); %Neutrophils 75.6 % (42.0-75.0); Hemoglobin 8.5 g/dL (12.0-16.0); Mean Corpuscular HGB CONC 30.9 g/dL (32.0-36.0); Mean Corpuscular Hemoglobin 23.1 pg (27.0-31.0); Mean Corpuscular Volume 74.8 fL (78.0-98.0); Mean Platelet Volume 8.2 fL (7.4-10.4); Platelet Count 311 thou/uL (130-400); RBC Distribution Width 15.4 % (11.5-14.5); Red Blood Cell (RBC) Count 3.68 mill/uL (4.20-5.40)
[2020-10-19 07:10] LABS: Anion Gap 18 mmol/L (10-20); BUN (Urea Nitrogen) 58 mg/dL (9.8-20.1); Calc. Creatinine Clearance 11 mL/min (70-130); Calcium 7.1 mg/dL (7.8-10.44); Carbon Dioxide 23 mmol/L (23-31); Chloride 99 mmol/L (98-107); Glucose 161 mg/dL (80-115); Potassium 4.3 mmol/L (3.5-5.1); Sodium 136 mmol/L (136-145)
--- NOTE | 2020-10-19 07:18 | OP ---
DATE OF PROCEDURE: 10/18/2020 PREOPERATIVE DIAGNOSIS: Ischemic left hand. POSTOPERATIVE DIAGNOSIS: Ischemic left hand. PROCEDURES PERFORMED: 1. Ultrasound-guided right femoral artery access. 2. Arch aortogram. 3. Left subclavian artery angiogram. 4. Left brachial artery angiogram. 5. Left radial artery angiogram. 6. Left ulnar artery angiogram. 7. ProGlide closure of the right groin access site. TOTAL CONTRAST: 37 mL. TOTAL FLUORO TIME: 4.1 minutes. DESCRIPTION OF PROCEDURE: After consent was obtained, the patient was brought to the labor arbitrator, placed in supine position on labor arbitrator table. Appropriate central line and monitors were placed. Groins were prepped and draped in usual sterile fashion. The patient was given 1 mg of versed and 50 mcg of fentanyl to aid in her comfort with positioning. Using ultrasound guidance, the right groin was anesthetized with 1% lidocaine. Using ultrasound guidance, the right common femoral artery was accessed with micropuncture needle, wire, and sheath. This was exchanged for a 5-[place] sheath. The tennis racquet catheter was passed in the ascending aorta. Arch aortogram was performed. Tennis racquet catheter was backed up into the arch more at the location of the subclavian takeoff and arch aortogram performed. Location of the subclavian artery was noted. There was no proximal stenosis of the proximal subclavian or axillary artery. The angled Tracy catheter was advanced in the subclavian artery. Hand-injected arteriogram was performed illuminating the subclavian and axillary artery without stenosis. The angled Tracy catheter was advanced over Bentson guidewire into the distal axillary artery/proximal brachial artery and hand-injected arteriogram performed. Multiple views were then taken of the area of the anastomosis with the graft both with compression and open graft. There appeared to be a stenosis of the brachial artery right at the anastomosis. Even with compression, we were not able to get good flow down into the distal brachial artery, axillary artery, and radial artery. The area of stenosis was traversed with the Bentson guidewire and angled Tracy catheter. Hand-injected arteriogram was performed and the radial artery was patent down into the wrist. The ulnar artery played out into multiple collaterals. The catheter was then removed over Bentson guidewire. The sheath was removed and a ProGlide placed with good hemostasis. The patient tolerated the procedure well, was transferred back to her room in stable condition. Job ID: [id number]
[2020-10-19] MEDS: diphenhydrAMINE 25 MG CAP PO PRN ×2 (07:44→16:41)
[2020-10-19] MEDS: Acetaminophen/Codeine 30-300mg Tablet PO PRN ×3 (07:44→21:06)
--- NOTE | 2020-10-19 08:29 | PDOC.HOSPP ---
- Subjective Encounter Date: 10/19/20 Encounter Time: 08:27 Subjective: Ms. Roberts was seen this morning in follow-up of left arm pain. She is post-op from an angiogram performed yesterday on her left arm. She says the pain feels much better today. She was very somnolent this morning. - Objective Vital Signs & Weight: Vital Signs (12 hours) Temp Pulse Resp BP BP Pulse Ox 10/19/20 07:56 94 L 10/19/20 07:50 98.7 F 100 18 139/66 94 L 10/19/20 03:25 98.8 F 86 20 121/68 92 L 10/19/20 03:14 97.9 F 81 20 153/66 H 97 10/18/20 23:57 98.6 F 109 H 20 152/70 H 109 H Weight Weight 63.412 kg I&O: 10/18/20 10/19/20 10/20/20 06:59 06:59 06:59 Intake Total 700 Balance 700 Result Diagrams: 10/19/20 06:27 10/19/20 06:27 Additional Labs: Accuchecks 10/18/20 11:17 POC Glucose 183 H Hospitalist ROS - Medication Medications: Active Medications Generic Name Dose Route Start Last Admin Trade Name Freq PRN Reason Stop Dose Admin Acetaminophen 1,000 mg 10/16/20 14:01 10/18/20 20:04 Acetaminophen 500 Mg Tab PO 1,000 mg Q6H PRN Administration Moderate to Severe Pain (6-10) Acetaminophen/Codeine Phosphate 1 tab 10/17/20 18:56 10/19/20 07:44 Acetaminophen/Codeine 30-300mg Tablet PO 1 tab Q4H PRN Administration Moderate Pain (4-6) Alogliptin Benzoate 6.25 mg 10/17/20 09:00 10/18/20 08:33 Alogliptin 6.25 Mg Tab PO 6.25 mg DAILY SHO Administration Atorvastatin Calcium 40 mg 10/08/20 21:00 10/18/20 20:11 Atorvastatin Calcium 40 Mg Tab PO Not Given HS SHO Benzonatate 100 mg 10/10/20 04:36 10/11/20 04:30 Benzonatate 100 Mg Cap PO 100 mg TIDPRN PRN Administration Cough Calcium Carbonate 1,000 mg 10/12/20 21:00 10/18/20 20:11 Calcium Carbonate 500 Mg Chewtab PO Not Given BID [facility] Clonidine 0.2 mg 10/12/20 15:00 10/18/20 20:11 Clonidine 0.1 Mg Tab PO Not Given TID [facility] Diphenhydramine HCl 12.5 mg 10/10/20 11:58 10/18/20 08:53 Diphenhydramine 50 Mg/Ml Vial IVP 12.5 mg Q6H PRN Administration Itching Diphenhydramine HCl 25 mg 10/17/20 18:56 10/19/20 07:44 Diphenhydramine 25 Mg Cap PO 25 mg Q6H PRN Administration Itching & Insomnia Enoxaparin Sodium 30 mg 10/08/20 09:00 10/18/20 08:42 Enoxaparin Sodium 30 Mg/0.3 Ml Syringe SC Not Given 0900 [facility] Folic Acid 1 mg 10/08/20 09:00 10/18/20 08:42 Folic Acid 1 Mg Tab PO Not Given DAILY [facility] Hydralazine HCl 100 mg 10/08/20 09:00 10/18/20 20:11 Hydralazine 25 Mg Tab PO Not Given TID [facility] Insulin Human Lispro 0 units 10/09/20 13:36 10/09/20 18:29 Humalog 300 Units/3 Ml Vial SC 6 unit .MODERATE SLIDING SC PRN Administration Moderate Correctional Scale Isosorbide Mononitrate 20 mg 10/09/20 21:00 10/18/20 20:12 Isosorbide Mononitrate 20 Mg Tab PO Not Given BID [facility] Labetalol HCl 400 mg 10/08/20 09:00 10/19/20 06:05 Labetalol 100 Mg Tab PO 400 mg BID SHO Administration Labetalol HCl 20 mg 10/08/20 05:10 10/15/20 17:10 Labetalol Hcl 100 Mg/20 Ml Vial SLOW IVP 4 ml Q4H PRN Administration SBP Greater Than 170 Melatonin 3 mg 10/15/20 00:45 10/15/20 03:02 Melatonin 3 Mg Tab PO 3 mg HSPRN PRN Administration Insomnia Nifedipine 90 mg 10/15/20 21:00 10/18/20 20:12 Nifedipine Xl 90 Mg Tab PO Not Given HS [facility] Throat Lozenges 1 dalton 10/11/20 04:49 10/12/20 20:42 Cepastat Lozenges 1 Dalton PO 1 dalton Q4H PRN Administration Sore Throat Tramadol HCl 50 mg 10/16/20 14:01 10/17/20 16:09 Tramadol Hcl 50 Mg Tab PO 50 mg Q12H PRN Administration Pain Hospitalist Exam Vitals: Vital Signs (12 hours) Temp Pulse Resp BP BP Pulse Ox 10/19/20 07:56 94 L 10/19/20 07:50 98.7 F 100 18 139/66 94 L 10/19/20 03:25 98.8 F 86 20 121/68 92 L 10/19/20 03:14 97.9 F 81 20 153/66 H 97 10/18/20 23:57 98.6 F 109 H 20 152/70 H 109 H Weight Weight 63.412 kg Heart: RRR, no murmur, no gallops, no rubs, normal peripheral pulses Respiratory: CTAB, no wheezes, no rales, no ronchi, normal chest expansion Extremities: no edema Musculoskeletal - other findings: right heel tender to palpation. Hosp A/P - Plan Chest pain Code(s): R07.9 - CHEST PAIN, UNSPECIFIED Status: Acute (2) Renal failure (ARF), acute on chronic Code(s): N17.9 - ACUTE KIDNEY FAILURE, UNSPECIFIED; N18.9 - CHRONIC KIDNEY DISEASE, UNSPECIFIED Status: Acute (3) Rheumatoid arthritis involving both ankles Code(s): M06.9 - RHEUMATOID ARTHRITIS, UNSPECIFIED Status: Acute (4) DM2 (diabetes mellitus, type 2) Status: Chronic Qualifiers: Diabetes mellitus complication status: with kidney complications Diabetes mellitus complication detail: with chronic kidney disease Chronic kidney disease stage: stage 3 (moderate) (5) Hypertension Code(s): I10 - ESSENTIAL (PRIMARY) HYPERTENSION Status: Chronic Qualifiers: Hypertension type: essential hypertension Qualified Code(s): I10 - Essential (primary) hypertension (6) Hypomagnesemia Code(s): E83.42 - HYPOMAGNESEMIA Status: Resolved (7) Leukocytosis Code(s): D72.829 - ELEVATED WHITE BLOOD CELL COUNT, UNSPECIFIED Status: Acute (8) Nausea and vomiting Code(s): R11.2 - NAUSEA WITH VOMITING, UNSPECIFIED Status: Acute * Acute kidney injury- post-op from angiogram yesterday. * HTN- stable * Knee pain- resolved * DM- stable; continue Trajenta * Hypocalcemia--continue TUMS with food * Anemia--stable * PT/OT evaluation, to help in discharge planning
[2020-10-19] MEDS: Calcium Carbonate 500 MG ChewTAB PO SCH ×2 (09:14→20:11)
[2020-10-19] MEDS: cloNIDine 0.1 MG TAB PO SCH ×3 (09:14→20:11)
[2020-10-19] MEDS: Alogliptin 6.25 MG TAB PO SCH (09:14)
[2020-10-19] MEDS: Enoxaparin Sodium 30 MG/0.3 ML SYRINGE SC SCH (09:15)
[2020-10-19] MEDS: Folic Acid 1 MG TAB PO SCH (09:15)
[2020-10-19] MEDS: hydrALAZINE 25 MG TAB PO SCH ×3 (09:15→20:11)
[2020-10-19] MEDS: Isosorbide Mononitrate 20 MG TAB PO SCH ×2 (09:15→20:12)
--- NOTE | 2020-10-19 10:26 | PDOC.HOSPP ---
- Subjective Encounter Date: 10/19/20 Encounter Time: 10:24 Subjective: Ms. Roberts was seen today in follow-up of new CKD stage 5. She notes pain in her left upper extremity. She says it started again this morning. - Objective Vital Signs & Weight: Vital Signs (12 hours) Temp Pulse Resp BP BP Pulse Ox 10/19/20 09:15 100 10/19/20 07:56 94 L 10/19/20 07:50 98.7 F 100 18 139/66 94 L 10/19/20 03:25 98.8 F 86 20 121/68 92 L 10/19/20 03:14 97.9 F 81 20 153/66 H 97 10/18/20 23:57 98.6 F 109 H 20 152/70 H 109 H Weight Weight 139 lb 12.8 oz I&O: 10/18/20 10/19/20 10/20/20 06:59 06:59 06:59 Intake Total 700 Balance 700 Result Diagrams: 10/19/20 06:27 10/19/20 06:27 Additional Labs: Accuchecks 10/18/20 11:17 POC Glucose 183 H Hospitalist ROS - Medication Medications: Active Medications Generic Name Dose Route Start Last Admin Trade Name Freq PRN Reason Stop Dose Admin Acetaminophen 1,000 mg 10/16/20 14:01 10/18/20 20:04 Acetaminophen 500 Mg Tab PO 1,000 mg Q6H PRN Administration Moderate to Severe Pain (6-10) Acetaminophen/Codeine Phosphate 1 tab 10/17/20 18:56 10/19/20 07:44 Acetaminophen/Codeine 30-300mg Tablet PO 1 tab Q4H PRN Administration Moderate Pain (4-6) Alogliptin Benzoate 6.25 mg 10/17/20 09:00 10/19/20 09:14 Alogliptin 6.25 Mg Tab PO Not Given DAILY SHO Atorvastatin Calcium 40 mg 10/08/20 21:00 10/18/20 20:11 Atorvastatin Calcium 40 Mg Tab PO Not Given HS SHO Benzonatate 100 mg 10/10/20 04:36 10/11/20 04:30 Benzonatate 100 Mg Cap PO 100 mg TIDPRN PRN Administration Cough Calcium Carbonate 1,000 mg 10/12/20 21:00 10/19/20 09:14 Calcium Carbonate 500 Mg Chewtab PO Not Given BID SHO Clonidine 0.2 mg 10/12/20 15:00 10/19/20 09:14 Clonidine 0.1 Mg Tab PO Not Given TID [facility] Diphenhydramine HCl 12.5 mg 10/10/20 11:58 10/18/20 08:53 Diphenhydramine 50 Mg/Ml Vial IVP 12.5 mg Q6H PRN Administration Itching Diphenhydramine HCl 25 mg 10/17/20 18:56 10/19/20 07:44 Diphenhydramine 25 Mg Cap PO 25 mg Q6H PRN Administration Itching & Insomnia Enoxaparin Sodium 30 mg 10/08/20 09:00 10/19/20 09:15 Enoxaparin Sodium 30 Mg/0.3 Ml Syringe SC Not Given 0900 [facility] Folic Acid 1 mg 10/08/20 09:00 10/19/20 09:15 Folic Acid 1 Mg Tab PO Not Given DAILY [facility] Hydralazine HCl 100 mg 10/08/20 09:00 10/19/20 09:15 Hydralazine 25 Mg Tab PO Not Given TID [facility] Insulin Human Lispro 0 units 10/09/20 13:36 10/09/20 18:29 Humalog 300 Units/3 Ml Vial SC 6 unit .MODERATE SLIDING SC PRN Administration Moderate Correctional Scale Isosorbide Mononitrate 20 mg 10/09/20 21:00 10/19/20 09:15 Isosorbide Mononitrate 20 Mg Tab PO Not Given BID [facility] Labetalol HCl 400 mg 10/08/20 09:00 10/19/20 06:05 Labetalol 100 Mg Tab PO 400 mg BID [facility] Administration Labetalol HCl 20 mg 10/08/20 05:10 10/15/20 17:10 Labetalol Hcl 100 Mg/20 Ml Vial SLOW IVP 4 ml Q4H PRN Administration SBP Greater Than 170 Melatonin 3 mg 10/15/20 00:45 10/15/20 03:02 Melatonin 3 Mg Tab PO 3 mg HSPRN PRN Administration Insomnia Nifedipine 90 mg 10/15/20 21:00 10/18/20 20:12 Nifedipine Xl 90 Mg Tab PO Not Given HS SHO Throat Lozenges 1 dalton 10/11/20 04:49 10/12/20 20:42 Cepastat Lozenges 1 Dalton PO 1 dalton Q4H PRN Administration Sore Throat Tramadol HCl 50 mg 10/16/20 14:01 10/17/20 16:09 Tramadol Hcl 50 Mg Tab PO 50 mg Q12H PRN Administration Pain Hospitalist Exam Vitals: Vital Signs (12 hours) Temp Pulse Resp BP BP Pulse Ox 10/19/20 09:15 100 10/19/20 07:56 94 L 10/19/20 07:50 98.7 F 100 18 139/66 94 L 10/19/20 03:25 98.8 F 86 20 121/68 92 L 10/19/20 03:14 97.9 F 81 20 153/66 H 97 10/18/20 23:57 98.6 F 109 H 20 152/70 H 109 H Weight Weight 139 lb 12.8 oz General Appearance: NAD, awake alert Heart: RRR, no murmur, no gallops, no rubs, normal peripheral pulses Respiratory: CTAB, no wheezes, no rales, no ronchi, normal chest expansion Gastrointestinal: soft, non-tender, non-distended, normal bowel sounds, no palpable masses, no hepatomegaly Extremities: no cyanosis, no edema Hosp A/P (1) Chronic kidney disease, stage 4 (severe) Code(s): N18.4 - CHRONIC KIDNEY DISEASE, STAGE 4 (SEVERE) Status: Chronic (2) Diabetes type 2, uncontrolled Code(s): E11.65 - TYPE 2 DIABETES MELLITUS WITH HYPERGLYCEMIA Status: Chronic (3) GERD (gastroesophageal reflux disease) Code(s): K21.9 - GASTRO-ESOPHAGEAL REFLUX DISEASE WITHOUT ESOPHAGITIS Status: Chronic Qualifiers: Esophagitis presence: esophagitis presence not specified Qualified Code(s): K21.9 - Gastro-esophageal reflux disease without esophagitis (4) Hypertension Code(s): I10 - ESSENTIAL (PRIMARY) HYPERTENSION Status: Chronic Qualifiers: Hypertension type: essential hypertension Qualified Code(s): I10 - Essential (primary) hypertension (5) Nausea and vomiting Code(s): R11.2 - NAUSEA WITH VOMITING, UNSPECIFIED Status: Resolved (6) Rheumatoid arthritis Code(s): M06.9 - RHEUMATOID ARTHRITIS, UNSPECIFIED Status: Chronic Qualifiers: Rheumatoid arthritis location: knee Laterality: bilateral - Plan * Acute kidney injury-CKD stage 5 -She has had a AV fistula placed * Left arm pain- She will have this evaluated by Surgery again today * She is to begin dialysis soon- but likely as outpatient * HTN- blood pressure is better today * Knee pain- has resolved * Possible SLE- follow-up with her Meat Smoker as an out patient * DM- continue Trajenta, and SSI- Glyburide is to be discontinued, and this was told to the patient, and the pill bottle was marked. * PT/OT evaluation, to help in discharge planning
[2020-10-19] MEDS ORDERED: PROPOFOL 200 MG/20 ML VIAL ONE (10:33)
[2020-10-19] MEDS ORDERED: Lidocaine 1% PF 5 ML VIAL ONE (10:33)
[2020-10-19] MEDS ORDERED: Ondansetron PF 4 MG/2 ML Vial ONE (10:33)
--- NOTE | 2020-10-19 10:51 | PRG ---
DATE OF SERVICE: 10/19/2020 SUBJECTIVE: Wendy Roberts on 10/16/2020 underwent left upper arm tapered dialysis graft. She developed hand ischemia. She underwent arteriography, Dr. Roberts yesterday performed this, revealing some anatomic distortion of the brachial artery at the anastomosis site, although it is well fed into the graft. Advancement of the catheter beyond the anastomosis reveals good outflow with occluded mid forearm ulnar artery with radial artery widely patent. She has an ischemic hand, although less painful today than yesterday. Plan is for a DRIL procedure today. We will perform that this afternoon. Risks and benefits discussed. She consents. Job ID: [id number]
[2020-10-19] MEDS ORDERED: Heparin 5,000 UNITS/ML VIAL ONE (13:09)
[2020-10-19] MEDS ORDERED: EPINEPHrine 1 MG/ML AMP ONE (13:09)
[2020-10-19] MEDS ORDERED: Protamine Sulfate 50 MG/5 ML VIAL ONE (13:09)
[2020-10-19] MEDS ORDERED: Bupivacaine PF 0.5% 30 ML VIAL ONE (13:09)
[2020-10-19] MEDS ORDERED: Fentanyl 100 MCG/2 ML VIAL ONE ×2 (13:15)
[2020-10-19] MEDS ORDERED: Ondansetron HCl/PF 4 MG/2 ML Vial IVP PRN (15:26)
[2020-10-19] MEDS ORDERED: Promethazine HCl 25 MG/ML VIAL SLOW IVP PRN (15:26)
[2020-10-19] MEDS ORDERED: Promethazine HCl 25 MG/ML VIAL IM PRN (15:26)
--- NOTE | 2020-10-19 18:00 | OP ---
DATE OF PROCEDURE: 10/19/2020 PREOPERATIVE DIAGNOSES: End-stage renal disease, status post tapered dialysis graft, left upper arm brachial artery, axillary vein with arterial steal syndrome and ischemic left hand. Arteriogram by Dr. Darren Roberts revealed occluded ulnar artery, mid forearm, and arterial steal with radial artery runoff only and some distortion of the artery beyond the graft arterial anastomosis. POSTOPERATIVE DIAGNOSES: End-stage renal disease, status post tapered dialysis graft, left upper arm brachial artery, axillary vein with arterial steal syndrome and ischemic left hand. Arteriogram by Dr. Darren Roberts revealed occluded ulnar artery, mid forearm and arterial steal with radial artery runoff only and some distortion of the artery beyond the graft arterial anastomosis. PROCEDURE PERFORMED: DRIL (distal revascularization and interval ligation) procedure using saphenous vein in left thigh. ANESTHESIA: General, local 0.25% Marcaine with epinephrine, approximately 50 mL used. DESCRIPTION OF PROCEDURE: The patient was taken to the operating room, where under general anesthesia, left thing and arm prepared with ChloraPrep and draped in routine fashion. Incision made in the left upper arm through the old incision above the elbow and proximally and distally, identifying the brachial artery distal and proximal to the graft arterial anastomosis. Saphenous vein harvested from the left thigh with incision, dividing branch between 4-0 silk ties, 3-0 silk ties, and clips. Distal stump of the saphenous vein ligated with a 3-0 silk tie. Proximal stump of the saphenofemoral junction ligated with a stick tie of 2-0 silk. The vein harvested, distended nicely, placed in heparinized saline solution. Good hemostasis noted. Subcutaneous tissue was approximated with 3-0 Monocryl, skin with subdermal 4-0 Monocryl and Zihlman glue applied. Local anesthetic was infiltrated in the skin and subcutaneous tissue about the operative sites. Attention was then turned back to the arm. Adequate saphenous vein that had been harvested and it was flushed with heparinized saline solution and distended very nicely. It was reversed. After adequate heparin circulation time, the dialysis graft, brachial artery dissected free, clamped with a vascular clamp and brachial artery distal to the graft artery anastomosis ligated with 2-0 silk tie. A longitudinal arteriotomy was made sharply, elongated with Castro scissors, and vein tailored to length with the Castro scissors for a 3 cm anastomosis, end vein to side brachial artery with continuous suture of 6-0 Prolene. After completing the anastomosis, vascular clamps were released and there was excellent flow in the graft and vein. At this point, the brachial artery just distal to the graft arterial anastomosis was ligated with a 2-0 silk tie, transected, spatulated, and vein tailored to length, and end vein to end artery anastomosis created with continuous suture of 6-0 Prolene. After completing the anastomosis, vascular clamps were released. There was good flow evident by excellent Doppler arterial signal, ulnar and radial. Good hemostasis obtained with 6-0 Prolene. The patient was given 50 mg of protamine by Anesthesia. Subcutaneous tissue was approximated with 3-0 Monocryl, skin with subdermal 4-0 Monocryl and Zihlman glue applied. Job ID: [id number]
[2020-10-19] MEDS: Labetalol HCl 100 MG/20 ML VIAL SLOW IVP PRN (18:04)
--- NOTE | 2020-10-19 18:09 | PRG ---
DATE OF SERVICE: 10/19/2020 SUBJECTIVE: Patient was seen and examined at bedside and overnight events noted. Patient denies any shortness of breath or chest pain or palpitation. No history of nausea or vomiting or diarrhea or fever or chills or cramps. OBJECTIVE: GENERAL: This is a well-built female, in no apparent distress. VITAL SIGNS: Temperature 97. Heart rate 100. Respiratory rate 18. Blood pressure 139/66. HEENT: Atraumatic, normocephalic. Oral mucosa is moist NECK: Supple. CARDIOVASCULAR: S1, S2 heard. Rate and rhythm regular. RESPIRATORY: Clear to auscultation. GASTROINTESTINAL: Abdomen is soft. MUSCULOSKELETAL: No tenderness. No edema. DERMATOLOGIC: No skin rash. NEUROLOGIC: Alert and awake and oriented X3. No focal neurologic deficits. Moving all the extremities. PSYCHIATRIC: Mood and affect normal. LABORATORY DATA: Potassium 4.3, BUN is 58, creatinine is 5.13. ASSESSMENT AND PLAN: 1. Chronic kidney disease, stage 5, stable. No acute indication for dialysis. 2. Edema, controlled. 3. History of hypertension. 4. Anemia of chronic disease. 5. Proteinuria. No acute indication for dialysis. Monitor labs. We will give a dose of Epogen. Job ID: [id number]
[2020-10-19] MEDS ORDERED: EPOETIN ALFA-EPBX (ESRD) 4,000 UNIT/ML VIAL SC SCH (20:00)
[2020-10-19] MEDS: Hydrocortisone 1% Cream 30 GM TUBE TOP SCH (20:03)
[2020-10-19] MEDS: Atorvastatin Calcium 40 MG TAB PO SCH (20:11)
[2020-10-19] MEDS: NIFEdipine XL 90 MG TAB PO SCH (20:12)
[2020-10-20] MEDS ORDERED: Sodium Chloride 0.9% 500 ML IV SCH (00:45)
[2020-10-20] MEDS: Acetaminophen/Codeine 30-300mg Tablet PO PRN ×3 (01:23→09:30)
[2020-10-20] MEDS: diphenhydrAMINE 25 MG CAP PO PRN ×3 (01:24→21:03)
--- NOTE | 2020-10-20 02:27 | PDOC.BPN ---
- Brief Progress Note Encounter Date: 10/20/20 Patient's blood pressure dropped to maps below 65 for the evening BP medications. She was given 500 mils bolus which improved her maps to between 65 and 68 We will give an extra to 250 mils and reevaluate. We will try to hold excessive fluid administration due to poor renal status
[2020-10-20] MEDS ORDERED: Sodium Chloride 0.9% 250 ML IV SCH (03:00)
[2020-10-20] MEDS: hydrALAZINE 25 MG TAB PO SCH ×3 (09:14→21:06)
[2020-10-20] MEDS: Calcium Carbonate 500 MG ChewTAB PO SCH ×2 (09:14→21:09)
[2020-10-20] MEDS: cloNIDine 0.1 MG TAB PO SCH ×3 (09:14→21:07)
[2020-10-20] MEDS: Isosorbide Mononitrate 20 MG TAB PO SCH ×2 (09:16→21:10)
[2020-10-20] MEDS: Hydrocortisone 1% Cream 30 GM TUBE TOP SCH ×2 (09:16→21:10)
[2020-10-20] MEDS: Labetalol 100 MG TAB PO SCH ×2 (09:17→21:06)
[2020-10-20] MEDS: Enoxaparin Sodium 30 MG/0.3 ML SYRINGE SC SCH (09:18)
[2020-10-20] MEDS: Folic Acid 1 MG TAB PO SCH (09:22)
[2020-10-20] MEDS: Alogliptin 6.25 MG TAB PO SCH (09:22)
[2020-10-20 10:40] LABS: Anion Gap 19 mmol/L (10-20); BUN (Urea Nitrogen) 63 mg/dL (9.8-20.1); Calc. Creatinine Clearance 9 mL/min (70-130); Calcium 6.6 mg/dL (7.8-10.44); Carbon Dioxide 21 mmol/L (23-31); Chloride 100 mmol/L (98-107); Glucose 217 mg/dL (80-115); Potassium 4.6 mmol/L (3.5-5.1); Sodium 135 mmol/L (136-145)
[2020-10-20 10:53] LABS: #Basophils 0.1 thou/uL (0.0-0.2); #Eosinphils 0.2 thou/uL (0.0-0.7); #Lymphocytes 1.1 thou/uL (1.20-3.40); #Monocytes 1.5 thou/uL (0.11-0.59); #Neutrophils 10.9 thou/uL (1.40-6.50); %Basophils 0.4 % (0.0-1.0); %Eosinophils 1.2 % (0.0-10.0); %Lymphocytes 8.2 % (21.0-51.0); %Monocytes 10.6 % (0.0-10.0); %Neutrophils 79.6 % (42.0-75.0); Band 1 % (5-11); Eosinophils 2 % (0-10); Hemoglobin 7.2 g/dL (12.0-16.0); Hypersemented Neutrophil MODERATE; Hypochromia MODERATE=16-30 cells (100X) (0-5/hpf); Lymphocytes 6 % (21-51); MDiff Complete? YES; Mean Corpuscular HGB CONC 29.9 g/dL (32.0-36.0); Mean Corpuscular Hemoglobin 22.6 pg (27.0-31.0); Mean Corpuscular Volume 75.7 fL (78.0-98.0); Mean Platelet Volume 7.9 fL (7.4-10.4); Microcytosis SLIGHT = 6-15 cells (100X) (0-5/hpf); Monocytes 10 % (0-10); Neutrophil 80 % (42-75); Platelet Count 367 thou/uL (130-400); Platelet Morphology Comment Appears Adequate; Polychromasia SLIGHT = 2-3 cells (100X) (0-2/hpf); RBC Distribution Width 15.1 % (11.5-14.5); Reactive Lymphocytes 1 % (0-10); Red Blood Cell (RBC) Count 3.19 mill/uL (4.20-5.40); Rouleaux Formation SLIGHT = 1-5 cells (100X) (None Seen); White Blood Cell (WBC) Count 13.7 thou/uL (4.8-10.8)
[2020-10-20] MEDS: Promethazine HCl 25 MG in Sodium Chloride 0.9% 50 ML IVPB PRN (14:09)
[2020-10-20] MEDS: HYDROcodone/Acetaminophen 5/325 mg Tablet PO PRN ×2 (14:49→21:02)
--- NOTE | 2020-10-20 15:44 | PRG ---
DATE OF SERVICE: 10/20/2020 SUBJECTIVE: Patient was seen and examined at bedside and overnight events noted. Patient denies any shortness of breath or chest pain or palpitation. No history of nausea or vomiting or diarrhea or fever or chills or cramps. OBJECTIVE: GENERAL: This is a well-built female, in no apparent distress. VITAL SIGNS: Temperature 98.3. Heart rate 89. Respiratory rate 16. Blood pressure 114/66. HEENT: Atraumatic, normocephalic. Oral mucosa is moist NECK: Supple. CARDIOVASCULAR: S1, S2 heard. Rate and rhythm regular. RESPIRATORY: Clear to auscultation. GASTROINTESTINAL: Abdomen is soft. MUSCULOSKELETAL: 1+ edema. DERMATOLOGIC: No skin rash. NEUROLOGIC: Alert and awake and oriented X3. No focal neurologic deficits. Moving all the extremities. PSYCHIATRIC: Mood and affect normal. LABORATORY DATA: Potassium 4.6, BUN is 63, creatinine is 6.1. ASSESSMENT AND PLAN: 1. Chronic kidney disease, stage 5, stable. No acute indication for dialysis. Labs are stable. Advised to increase p.o. intake. 2. Acute pain. The patient is having lot of pain from her ischemic hand, and we will add hydrocodone. The patient is allergic to codeine, but she has tolerated hydrocodone before, and we will also watch closely for any symptoms. 3. Edema. 4. History of hypertension. 5. Anemia of chronic disease. 6. Proteinuria. We will continue to follow. No acute indication for dialysis. Recheck labs daily. Job ID: [id number]
--- NOTE | 2020-10-20 15:53 | PDOC.HOSPP ---
- Subjective Encounter Date: 10/20/20 Encounter Time: 15:51 Subjective: Ms. Roberts was seen today in follow-up of acute kidney disease. She notes some continued pain in her left hand. She denies chest pain, or trouble breathing. - Objective Vital Signs & Weight: Vital Signs (12 hours) Temp Pulse Resp BP BP BP Pulse Ox 10/20/20 14:54 168/67 H 10/20/20 12:00 98.2 F 89 16 114/66 96 10/20/20 09:31 93 L 10/20/20 09:17 86 10/20/20 08:00 98.7 F 94 18 120/63 93 L 10/20/20 04:00 98.4 F 86 18 104/55 L 93 L Weight Admit Weight 137 lb 11.2 oz Weight 139 lb 13.463 oz I&O: 10/19/20 10/20/20 10/21/20 06:59 06:59 06:59 Intake Total 500 Balance 500 Result Diagrams: 10/20/20 09:44 10/20/20 09:44 Hospitalist ROS - Medication Medications: Active Medications Generic Name Dose Route Start Last Admin Trade Name Freq PRN Reason Stop Dose Admin Acetaminophen 1,000 mg 10/16/20 14:01 10/18/20 20:04 Acetaminophen 500 Mg Tab PO 1,000 mg Q6H PRN Administration Moderate to Severe Pain (6-10) Acetaminophen/Codeine Phosphate 1 tab 10/17/20 18:56 10/20/20 09:30 Acetaminophen/Codeine 30-300mg Tablet PO 1 tab Q4H PRN Administration Moderate Pain (4-6) Hydrocodone Bitart/Acetaminophen 1 tab 10/20/20 12:09 10/20/20 14:49 Hydrocodone/Acetaminophen 5/325 Mg Tablet PO 1 tab Q6H PRN Administration Moderate Pain (4-6) Alogliptin Benzoate 6.25 mg 10/17/20 09:00 10/20/20 09:22 Alogliptin 6.25 Mg Tab PO 6.25 mg DAILY SHO Administration Atorvastatin Calcium 40 mg 10/08/20 21:00 10/19/20 20:11 Atorvastatin Calcium 40 Mg Tab PO Not Given HS SHO Benzonatate 100 mg 10/10/20 04:36 10/11/20 04:30 Benzonatate 100 Mg Cap PO 100 mg TIDPRN PRN Administration Cough Calcium Carbonate 1,000 mg 10/12/20 21:00 10/20/20 09:14 Calcium Carbonate 500 Mg Chewtab PO Not Given BID [facility] Clonidine 0.2 mg 10/12/20 15:00 10/20/20 14:11 Clonidine 0.1 Mg Tab PO Not Given TID [facility] Diphenhydramine HCl 12.5 mg 10/10/20 11:58 10/18/20 08:53 Diphenhydramine 50 Mg/Ml Vial IVP 12.5 mg Q6H PRN Administration Itching Diphenhydramine HCl 25 mg 10/17/20 18:56 10/20/20 09:30 Diphenhydramine 25 Mg Cap PO 25 mg Q6H PRN Administration Itching & Insomnia Enoxaparin Sodium 30 mg 10/08/20 09:00 10/20/20 09:18 Enoxaparin Sodium 30 Mg/0.3 Ml Syringe SC 30 mg 0900 [facility] Administration Epoetin Charlie-epbx 7,500 unit 10/19/20 20:00 10/19/20 19:59 Epoetin Charlie-Epbx (Esrd) 4,000 Unit/Ml Vial SC 7,500 unit Q7D [facility] Administration Folic Acid 1 mg 10/08/20 09:00 10/20/20 09:22 Folic Acid 1 Mg Tab PO 1 mg DAILY [facility] Administration Hydralazine HCl 100 mg 10/08/20 09:00 10/20/20 14:11 Hydralazine 25 Mg Tab PO Not Given TID [facility] Hydrocortisone/Aloe 0 gm 10/19/20 21:00 10/20/20 09:16 Hydrocortisone 1% Cream 30 Gm Tube TOP 1 applic BID [facility] Administration Promethazine HCl 25 mg/ Sodium 51 mls @ 204 mls/hr 10/14/20 10:30 10/20/20 14:09 Chloride IVPB 51 mls Q6H PRN Administration Nausea/Vomiting Insulin Human Lispro 0 units 10/09/20 13:36 10/09/20 18:29 Humalog 300 Units/3 Ml Vial SC 6 unit .MODERATE SLIDING SC PRN Administration Moderate Correctional Scale Isosorbide Mononitrate 20 mg 10/09/20 21:00 10/20/20 09:16 Isosorbide Mononitrate 20 Mg Tab PO Not Given BID [facility] Labetalol HCl 400 mg 10/08/20 09:00 10/20/20 09:17 Labetalol 100 Mg Tab PO Not Given BID SHO Labetalol HCl 20 mg 10/08/20 05:10 10/19/20 18:04 Labetalol Hcl 100 Mg/20 Ml Vial SLOW IVP 4 ml Q4H PRN Administration SBP Greater Than 170 Melatonin 3 mg 10/15/20 00:45 10/15/20 03:02 Melatonin 3 Mg Tab PO 3 mg HSPRN PRN Administration Insomnia Nifedipine 90 mg 10/15/20 21:00 10/19/20 20:12 Nifedipine Xl 90 Mg Tab PO Not Given HS SHO Throat Lozenges 1 dalton 10/11/20 04:49 10/12/20 20:42 Cepastat Lozenges 1 Dalton PO 1 dalton Q4H PRN Administration Sore Throat Tramadol HCl 50 mg 10/16/20 14:01 10/17/20 16:09 Tramadol Hcl 50 Mg Tab PO 50 mg Q12H PRN Administration Pain Hospitalist Exam Vitals: Vital Signs (12 hours) Temp Pulse Resp BP BP BP Pulse Ox 10/20/20 14:54 168/67 H 10/20/20 12:00 98.2 F 89 16 114/66 96 10/20/20 09:31 93 L 10/20/20 09:17 86 10/20/20 08:00 98.7 F 94 18 120/63 93 L 10/20/20 04:00 98.4 F 86 18 104/55 L 93 L Weight Admit Weight 137 lb 11.2 oz Weight 139 lb 13.463 oz General Appearance: NAD, awake alert Eye: PERRL, anicteric sclera Heart: RRR, no murmur, no gallops, no rubs, normal peripheral pulses Respiratory: CTAB, no wheezes, no rales, no ronchi, normal chest expansion, no tachypnea, normal percussion Gastrointestinal: soft, non-tender, non-distended, normal bowel sounds, no palpable masses, no hepatomegaly Extremities: 2+ LE edema (+ diffuse edema of the left upper extremity, radial pulse and ulvar pulse are both palpable, but the ulnar is a bit weaker. hand is warm) Hosp A/P (1) Chronic kidney disease, stage 4 (severe) Code(s): N18.4 - CHRONIC KIDNEY DISEASE, STAGE 4 (SEVERE) Status: Chronic (2) Diabetes type 2, uncontrolled Code(s): E11.65 - TYPE 2 DIABETES MELLITUS WITH HYPERGLYCEMIA Status: Chronic (3) GERD (gastroesophageal reflux disease) Code(s): K21.9 - GASTRO-ESOPHAGEAL REFLUX DISEASE WITHOUT ESOPHAGITIS Status: Chronic Qualifiers: Esophagitis presence: esophagitis presence not specified Qualified Code(s): K21.9 - Gastro-esophageal reflux disease without esophagitis (4) Hypertension Code(s): I10 - ESSENTIAL (PRIMARY) HYPERTENSION Status: Chronic Qualifiers: Hypertension type: essential hypertension Qualified Code(s): I10 - Essential (primary) hypertension (5) Nausea and vomiting Code(s): R11.2 - NAUSEA WITH VOMITING, UNSPECIFIED Status: Resolved (6) Rheumatoid arthritis Code(s): M06.9 - RHEUMATOID ARTHRITIS, UNSPECIFIED Status: Chronic Qualifiers: Rheumatoid arthritis location: knee Laterality: bilateral - Plan * Acute kidney injury-CKD stage 5 -She has had a AV fistula placed * Left arm pain- s/p DRIL procedure * She will start Dialysis in the future after discharge * HTN- blood pressure is a bit labile- will continue the current regimen, and monitor. 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
--- NOTE | 2020-10-20 17:59 | PRG ---
DATE OF SERVICE: 10/20/2020 Ms. Roberts is 1 day status post DRIL procedure (distal revascularization and interval ligation) for arterial steal syndrome, arteriosclerotic disease of left forearm. The ulnar artery is occluded in mid forearm. She had an ischemic hand. She is still having quite a bit of pain. She has poor mobility of her hand. She has excellent Doppler signals, radial and ulnar pulse, however. Fingers are pink, hand is warm. Temperature 99.6 degrees, blood pressure 144/67. I have recommended warm compresses t.i.d. to q.i.d. forearm and hand as indicated. Could use this q.4 hours or more often as requested. Ischemic neuritis will take a while to resolve, but it will resolve with time. The patient can be discharged home over the weekend or next week and follow up in my office in 2 to 3 weeks. Hopefully, hand function will improve and pain will resolve. Job ID: [id number]
[2020-10-20] MEDS: Melatonin 3 MG TAB PO PRN (21:03)
[2020-10-20] MEDS: Atorvastatin Calcium 40 MG TAB PO SCH (21:09)
[2020-10-20] MEDS: NIFEdipine XL 90 MG TAB PO SCH (21:11)
[2020-10-21] MEDS: HYDROcodone/Acetaminophen 5/325 mg Tablet PO PRN ×2 (05:30→17:27)
[2020-10-21] MEDS: diphenhydrAMINE 25 MG CAP PO PRN ×2 (05:30→17:28)
[2020-10-21 06:24] LABS: Anion Gap 18 mmol/L (10-20); BUN (Urea Nitrogen) 66 mg/dL (9.8-20.1); Calc. Creatinine Clearance 9 mL/min (70-130); Carbon Dioxide 21 mmol/L (23-31); Chloride 100 mmol/L (98-107); Potassium 4.8 mmol/L (3.5-5.1); Sodium 134 mmol/L (136-145)
[2020-10-21 06:25] LABS: Calcium 6.4 mg/dL (7.8-10.44); Glucose 227 mg/dL (80-115)
[2020-10-21] MEDS ORDERED: Sodium Bicarbonate 150 MEQ in Dextrose 5% in Water 1,000 ML IV SCH (09:45)
[2020-10-21] MEDS: Alogliptin 6.25 MG TAB PO SCH (10:53)
[2020-10-21] MEDS: cloNIDine 0.1 MG TAB PO SCH ×3 (10:54→21:50)
[2020-10-21] MEDS: Labetalol 100 MG TAB PO SCH ×2 (10:54→21:58)
[2020-10-21] MEDS: hydrALAZINE 25 MG TAB PO SCH ×3 (10:55→21:50)
[2020-10-21] MEDS: Isosorbide Mononitrate 20 MG TAB PO SCH ×2 (10:57→21:51)
[2020-10-21] MEDS: Enoxaparin Sodium 30 MG/0.3 ML SYRINGE SC SCH (10:58)
[2020-10-21] MEDS: Folic Acid 1 MG TAB PO SCH (10:58)
[2020-10-21] MEDS: Hydrocortisone 1% Cream 30 GM TUBE TOP SCH ×2 (10:59→22:02)
[2020-10-21] MEDS: Calcium Carbonate 500 MG ChewTAB PO SCH ×3 (11:29→21:52)
--- NOTE | 2020-10-21 11:52 | PRG ---
DATE OF SERVICE: 10/21/2020 SUBJECTIVE: Patient was seen and examined at bedside and overnight events noted. Patient denies any shortness of breath or chest pain or palpitation. No history of nausea or vomiting or diarrhea or fever or chills or cramps. OBJECTIVE: GENERAL: This is well-built female, in no apparent distress. VITAL SIGNS: Temperature 98.5. Heart Rate 97. Respiratory rate 18. Blood pressure 183/73. HEENT: Atraumatic, normocephalic. Oral mucosa is moist. NECK: Supple. CARDIOVASCULAR: S1, S2 heard. Rate and rhythm regular. RESPIRATORY: Clear to auscultation. GASTROINTESTINAL: Abdomen is soft. MUSCULOSKELETAL: 1+ edema. DERMATOLOGIC: No skin rash. NEUROLOGIC: Alert and awake and oriented x3. No focal neurologic deficits. Moving all the extremities. PSYCHIATRIC: Mood and affect normal. LABORATORY DATA: Potassium 4.8, BUN is 66, creatinine 6.6. ASSESSMENT AND PLAN: 1. Chronic kidney disease, stage 5. Labs are getting worse, but no acute indication for dialysis. We will continue close monitoring. Plan is to start IV fluids. 2. Acidosis. We will add bicarb drip. 3. Pain, better. 4. History of hypertension. 5. Anemia of chronic disease. 6. Proteinuria. No acute indication for dialysis. Status post graft placement. We will continue close monitoring. If renal function worsens, might need to start renal replacement therapy with a catheter, but plan is to try IV fluids and monitor. Job ID: [id number]
--- NOTE | 2020-10-21 15:45 | PDOC.HOSPP ---
- Subjective Encounter Date: 10/21/20 (f/u rafaela with ckd) Encounter Time: 15:42 Subjective: Pt c/o pain in left arm and leg - states the swelling has improved with heating pad and left arm elevated. She reports some nausea - none currently. Denies vomiting/abd pain. reports last BM was 3 days ago. She denies any chest pain or difficulty breathing. - Objective Vital Signs & Weight: Vital Signs (12 hours) Temp Pulse Resp BP BP Pulse Ox 10/21/20 14:35 97 10/21/20 14:30 136/70 10/21/20 10:55 97 10/21/20 10:54 97 10/21/20 08:00 98.3 F 90 16 116/65 92 L Weight Admit Weight 137 lb 11.2 oz Weight 150 lb I&O: 10/20/20 10/21/20 10/22/20 06:59 06:59 06:59 Intake Total 500 1570 Balance 500 1570 Result Diagrams: 10/20/20 09:44 10/21/20 05:50 Hospitalist ROS - Medication Medications: Active Medications Generic Name Dose Route Start Last Admin Trade Name Freq PRN Reason Stop Dose Admin Acetaminophen 1,000 mg 10/16/20 14:01 10/18/20 20:04 Acetaminophen 500 Mg Tab PO 1,000 mg Q6H PRN Administration Moderate to Severe Pain (6-10) Acetaminophen/Codeine Phosphate 1 tab 10/17/20 18:56 10/20/20 09:30 Acetaminophen/Codeine 30-300mg Tablet PO 1 tab Q4H PRN Administration Moderate Pain (4-6) Hydrocodone Bitart/Acetaminophen 1 tab 10/20/20 12:09 10/21/20 05:30 Hydrocodone/Acetaminophen 5/325 Mg Tablet PO 1 tab Q6H PRN Administration Moderate Pain (4-6) Alogliptin Benzoate 6.25 mg 10/17/20 09:00 10/21/20 10:53 Alogliptin 6.25 Mg Tab PO 6.25 mg DAILY SHO Administration Atorvastatin Calcium 40 mg 10/08/20 21:00 10/20/20 21:09 Atorvastatin Calcium 40 Mg Tab PO Not Given HS SHO Benzonatate 100 mg 10/10/20 04:36 10/11/20 04:30 Benzonatate 100 Mg Cap PO 100 mg TIDPRN PRN Administration Cough Calcium Carbonate 1,000 mg 10/21/20 15:00 10/21/20 14:34 Calcium Carbonate 500 Mg Chewtab PO 1,000 mg TID SHO Administration Clonidine 0.2 mg 10/12/20 15:00 10/21/20 14:35 Clonidine 0.1 Mg Tab PO 0.2 mg TID SHO Administration Diphenhydramine HCl 12.5 mg 10/10/20 11:58 10/18/20 08:53 Diphenhydramine 50 Mg/Ml Vial IVP 12.5 mg Q6H PRN Administration Itching Diphenhydramine HCl 25 mg 10/17/20 18:56 10/21/20 05:30 Diphenhydramine 25 Mg Cap PO 25 mg Q6H PRN Administration Itching & Insomnia Enoxaparin Sodium 30 mg 10/08/20 09:00 10/21/20 10:58 Enoxaparin Sodium 30 Mg/0.3 Ml Syringe SC 30 mg 0900 SHO Administration Epoetin Charlie-epbx 7,500 unit 10/19/20 20:00 10/19/20 19:59 Epoetin Charlie-Epbx (Esrd) 4,000 Unit/Ml Vial SC 7,500 unit Q7D SHO Administration Folic Acid 1 mg 10/08/20 09:00 10/21/20 10:58 Folic Acid 1 Mg Tab PO 1 mg DAILY SHO Administration Hydralazine HCl 100 mg 10/08/20 09:00 10/21/20 14:35 Hydralazine 25 Mg Tab PO 100 mg TID SHO Administration Hydrocortisone/Aloe 0 gm 10/19/20 21:00 10/21/20 10:59 Hydrocortisone 1% Cream 30 Gm Tube TOP 1 applic BID SHO Administration Promethazine HCl 25 mg/ Sodium 51 mls @ 204 mls/hr 10/14/20 10:30 10/20/20 14:09 Chloride IVPB 51 mls Q6H PRN Administration Nausea/Vomiting Sodium Bicarbonate 150 meq/ 1,150 mls @ 50 mls/hr 10/21/20 09:45 10/21/20 11:03 Dextrose/Water IV 10/22/20 08:44 1,150 mls NOW SHO Administration Insulin Human Lispro 0 units 10/09/20 13:36 10/09/20 18:29 Humalog 300 Units/3 Ml Vial SC 6 unit .MODERATE SLIDING SC PRN Administration Moderate Correctional Scale Isosorbide Mononitrate 20 mg 10/09/20 21:00 10/21/20 10:57 Isosorbide Mononitrate 20 Mg Tab PO 20 mg BID SHO Administration Labetalol HCl 400 mg 10/08/20 09:00 10/21/20 10:54 Labetalol 100 Mg Tab PO 400 mg BID SHO Administration Labetalol HCl 20 mg 10/08/20 05:10 10/19/20 18:04 Labetalol Hcl 100 Mg/20 Ml Vial SLOW IVP 4 ml Q4H PRN Administration SBP Greater Than 170 Melatonin 3 mg 10/15/20 00:45 10/20/20 21:03 Melatonin 3 Mg Tab PO 3 mg HSPRN PRN Administration Insomnia Nifedipine 90 mg 10/15/20 21:00 10/20/20 21:11 Nifedipine Xl 90 Mg Tab PO Not Given HS SHO Throat Lozenges 1 dalton 10/11/20 04:49 10/12/20 20:42 Cepastat Lozenges 1 Dalton PO 1 dalton Q4H PRN Administration Sore Throat Tramadol HCl 50 mg 10/16/20 14:01 10/17/20 16:09 Tramadol Hcl 50 Mg Tab PO 50 mg Q12H PRN Administration Pain Hospitalist Exam Vitals: Vital Signs (12 hours) Temp Pulse Resp BP BP Pulse Ox 10/21/20 14:35 97 10/21/20 14:30 136/70 10/21/20 10:55 97 10/21/20 10:54 97 10/21/20 08:00 98.3 F 90 16 116/65 92 L Weight Admit Weight 137 lb 11.2 oz Weight 150 lb General Appearance: NAD Heart: RRR, no murmur Respiratory: no wheezes, no rales, no ronchi Gastrointestinal: soft, normal bowel sounds Extremities: no cyanosis, no clubbing Extremities - other findings: 2+ edema in LUE and LLE Psychiatric: normal affect Hosp A/P (1) Renal failure (ARF), acute on chronic Code(s): N17.9 - ACUTE KIDNEY FAILURE, UNSPECIFIED; N18.9 - CHRONIC KIDNEY DISEASE, UNSPECIFIED Status: Acute Qualifiers: Chronic kidney disease stage: stage 5, not on chronic dialysis (2) Anemia Code(s): D64.9 - ANEMIA, UNSPECIFIED Status: Chronic Qualifiers: Anemia type: due to chronic kidney disease Chronic kidney disease stage: stage 5, not on chronic dialysis Qualified Code(s): N18.5 - Chronic kidney disease, stage 5; D63.1 - Anemia in chronic kidney disease (3) Diabetes type 2, uncontrolled Code(s): E11.65 - TYPE 2 DIABETES MELLITUS WITH HYPERGLYCEMIA Status: Chronic Qualifiers: Glycemic state: with hyperglycemia Qualified Code(s): E11.65 - Type 2 diabetes mellitus with hyperglycemia (4) GERD (gastroesophageal reflux disease) Code(s): K21.9 - GASTRO-ESOPHAGEAL REFLUX DISEASE WITHOUT ESOPHAGITIS Status: Chronic Qualifiers: Esophagitis presence: esophagitis presence not specified Qualified Code(s): K21.9 - Gastro-esophageal reflux disease without esophagitis (5) Hypertension Code(s): I10 - ESSENTIAL (PRIMARY) HYPERTENSION Status: Chronic Qualifiers: Hypertension type: essential hypertension Qualified Code(s): I10 - Essential (primary) hypertension - Plan RAFAELA with CKD s/p AV fistula and 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 Tracey - continue pain meds prn - continue elevation HTN - improved control, continue current meds Possible SLE - needs outpatient f/u with Rheum DM - not optimally controlled. Will start long-acting insulin tonight - on alogliptin No recent BM - scheduled miralax and colace, prn lactulose Anemia - last check hb 7.2 - type & screen and recheck in AM dvt prophy - heparin gi prophy - not indicated code status full reviewed plan of care with patient and sister at bedside, no questions or further needs at end of eval.
--- NOTE | 2020-10-21 18:37 | EKG ---
Test Reason : CP Blood Pressure : / mmHG Vent. Rate : 102 BPM Atrial Rate : 102 BPM P-R Int : 150 ms QRS Dur : 062 ms QT Int : 342 ms P-R-T Axes : 048 -45 063 degrees QTc Int : 445 ms Sinus tachycardia Possible Left atrial enlargement Left axis deviation Abnormal ECG Confirmed by IVAN LESLIE ([id number]), online editor GUMARO RATLIFF ([id number]) on 10/21/2020 6:36:58 PM Referred By: Confirmed By:IVAN LESLIE
[2020-10-21] MEDS: NIFEdipine XL 90 MG TAB PO SCH (21:46)
[2020-10-21] MEDS: Atorvastatin Calcium 40 MG TAB PO SCH (21:47)
[2020-10-21] MEDS: Docusate 100 MG CAP PO SCH (21:57)
[2020-10-21] MEDS: Insulin Glargine 5 UNITS in Pre-Filled Syringe SC SCH ×2 (22:03→22:05)
[2020-10-22] MEDS: Promethazine HCl 25 MG in Sodium Chloride 0.9% 50 ML IVPB PRN (01:11)
[2020-10-22] MEDS: HYDROcodone/Acetaminophen 5/325 mg Tablet PO PRN ×3 (03:21→20:45)
[2020-10-22] MEDS: diphenhydrAMINE 25 MG CAP PO PRN ×3 (03:27→21:53)
[2020-10-22] MEDS: Acetaminophen 500 MG TAB PO PRN (05:52)
[2020-10-22] MEDS: HumaLOG 300 UNITS/3 ML VIAL SC PRN (05:54)
[2020-10-22 06:59] LABS: #Basophils 0.1 thou/uL (0.0-0.2); #Eosinphils 0.2 thou/uL (0.0-0.7); #Lymphocytes 1.5 thou/uL (1.20-3.40); #Monocytes 1.2 thou/uL (0.11-0.59); #Neutrophils 9.5 thou/uL (1.40-6.50); %Basophils 0.6 % (0.0-1.0); %Eosinophils 1.3 % (0.0-10.0); %Lymphocytes 11.9 % (21.0-51.0); %Monocytes 9.5 % (0.0-10.0); %Neutrophils 76.8 % (42.0-75.0); Hemoglobin 5.6 g/dL (12.0-16.0); Mean Corpuscular HGB CONC 29.7 g/dL (32.0-36.0); Mean Corpuscular Hemoglobin 22.1 pg (27.0-31.0); Mean Corpuscular Volume 74.3 fL (78.0-98.0); Mean Platelet Volume 7.3 fL (7.4-10.4); Platelet Count 469 thou/uL (130-400); RBC Distribution Width 15.1 % (11.5-14.5); Red Blood Cell (RBC) Count 2.55 mill/uL (4.20-5.40); White Blood Cell (WBC) Count 12.4 thou/uL (4.8-10.8)
[2020-10-22 07:16] LABS: Anion Gap 18 mmol/L (10-20); BUN (Urea Nitrogen) 69 mg/dL (9.8-20.1); Calc. Creatinine Clearance 10 mL/min (70-130); Carbon Dioxide 23 mmol/L (23-31); Chloride 96 mmol/L (98-107); Potassium 4.4 mmol/L (3.5-5.1); Sodium 133 mmol/L (136-145)
[2020-10-22 07:17] LABS: Calcium 6.4 mg/dL (7.8-10.44); Glucose 211 mg/dL (80-115)
--- NOTE | 2020-10-22 08:16 | PDOC.HOSPP ---
- Subjective Encounter Date: 10/22/20 (f/u rafaela with ckd) Encounter Time: 08:14 Subjective: Pt this morning states she is working to move her left hand more. She c/o pain along the outside of her right ankle. When discussing her blood count (hb 5.6) she states no one has been listening to her and she knows there has been a problem. She reports going to the cancer center every [address] Hartmann and receiving an injection if her hb is less than 9. - Objective Vital Signs & Weight: Vital Signs (12 hours) Temp Pulse Resp BP BP Pulse Ox 10/22/20 05:00 97.7 F 106 H 18 117/65 95 10/22/20 00:00 100.1 F H 106 H 20 138/65 95 10/21/20 21:58 100 171/63 H 10/21/20 21:50 100 171/63 H 10/21/20 21:46 100 171/63 H Weight Admit Weight 137 lb 11.2 oz Weight 155 lb I&O: 10/21/20 10/22/20 10/23/20 06:59 06:59 06:59 Intake Total 1570 655 Balance 1570 655 Result Diagrams: 10/22/20 06:31 10/22/20 06:31 Hospitalist ROS - Medication Medications: Active Medications Generic Name Dose Route Start Last Admin Trade Name Freq PRN Reason Stop Dose Admin Acetaminophen 1,000 mg 10/16/20 14:01 10/22/20 05:52 Acetaminophen 500 Mg Tab PO 1,000 mg Q6H PRN Administration Moderate to Severe Pain (6-10) Acetaminophen/Codeine Phosphate 1 tab 10/17/20 18:56 10/20/20 09:30 Acetaminophen/Codeine 30-300mg Tablet PO 1 tab Q4H PRN Administration Moderate Pain (4-6) Hydrocodone Bitart/Acetaminophen 1 tab 10/20/20 12:09 10/22/20 03:21 Hydrocodone/Acetaminophen 5/325 Mg Tablet PO 1 tab Q6H PRN Administration Moderate Pain (4-6) Alogliptin Benzoate 6.25 mg 10/17/20 09:00 10/21/20 10:53 Alogliptin 6.25 Mg Tab PO 6.25 mg DAILY SHO Administration Atorvastatin Calcium 40 mg 10/08/20 21:00 10/21/20 21:47 Atorvastatin Calcium 40 Mg Tab PO Not Given HS SHO Benzonatate 100 mg 10/10/20 04:36 10/11/20 04:30 Benzonatate 100 Mg Cap PO 100 mg TIDPRN PRN Administration Cough Calcium Carbonate 1,000 mg 10/21/20 15:00 10/21/20 21:52 Calcium Carbonate 500 Mg Chewtab PO 1,000 mg TID SHO Administration Clonidine 0.2 mg 10/12/20 15:00 10/21/20 21:50 Clonidine 0.1 Mg Tab PO Not Given TID SHO Diphenhydramine HCl 12.5 mg 10/10/20 11:58 10/18/20 08:53 Diphenhydramine 50 Mg/Ml Vial IVP 12.5 mg Q6H PRN Administration Itching Diphenhydramine HCl 25 mg 10/17/20 18:56 10/22/20 03:27 Diphenhydramine 25 Mg Cap PO 25 mg Q6H PRN Administration Itching & Insomnia Docusate Sodium 100 mg 10/21/20 21:00 10/21/20 21:57 Docusate 100 Mg Cap PO 100 mg BID SHO Administration Epoetin Charlie-epbx 7,500 unit 10/19/20 20:00 10/19/20 19:59 Epoetin Charlie-Epbx (Esrd) 4,000 Unit/Ml Vial SC 7,500 unit Q7D SHO Administration Folic Acid 1 mg 10/08/20 09:00 10/21/20 10:58 Folic Acid 1 Mg Tab PO 1 mg DAILY SHO Administration Hydralazine HCl 100 mg 10/08/20 09:00 10/21/20 21:50 Hydralazine 25 Mg Tab PO Not Given TID SHO Hydrocortisone/Aloe 0 gm 10/19/20 21:00 10/21/20 22:02 Hydrocortisone 1% Cream 30 Gm Tube TOP 1 applic BID SHO Administration Promethazine HCl 25 mg/ Sodium 51 mls @ 204 mls/hr 10/14/20 10:30 10/22/20 01:11 Chloride IVPB 51 mls Q6H PRN Administration Nausea/Vomiting Sodium Bicarbonate 150 meq/ 1,150 mls @ 50 mls/hr 10/21/20 09:45 10/21/20 11:03 Dextrose/Water IV 10/22/20 08:44 1,150 mls NOW SHO Administration Insulin Glargine 5 units/ 0.05 mls @ 0 mls/hr 10/21/20 21:00 10/21/20 22:05 Miscellaneous Medication SC 0.05 mls HS SHO Administration Insulin Human Lispro 0 units 10/09/20 13:36 10/22/20 05:54 Humalog 300 Units/3 Ml Vial SC 2 unit .MODERATE SLIDING SC PRN Administration Moderate Correctional Scale Isosorbide Mononitrate 20 mg 10/09/20 21:00 10/21/20 21:51 Isosorbide Mononitrate 20 Mg Tab PO Not Given BID SHO Labetalol HCl 400 mg 10/08/20 09:00 10/21/20 21:58 Labetalol 100 Mg Tab PO Not Given BID SHO Labetalol HCl 20 mg 10/08/20 05:10 10/19/20 18:04 Labetalol Hcl 100 Mg/20 Ml Vial SLOW IVP 4 ml Q4H PRN Administration SBP Greater Than 170 Lactulose 20 gm 10/21/20 15:41 10/21/20 17:27 Lactulose 20 Gm/30 Ml Udcup PO 20 gm DAILYPRN PRN Administration Constipation Melatonin 3 mg 10/15/20 00:45 10/20/20 21:03 Melatonin 3 Mg Tab PO 3 mg HSPRN PRN Administration Insomnia Nifedipine 90 mg 10/15/20 21:00 10/21/20 21:46 Nifedipine Xl 90 Mg Tab PO Not Given HS SHO Throat Lozenges 1 dalton 10/11/20 04:49 10/12/20 20:42 Cepastat Lozenges 1 Dalton PO 1 adlton Q4H PRN Administration Sore Throat Tramadol HCl 50 mg 10/16/20 14:01 10/17/20 16:09 Tramadol Hcl 50 Mg Tab PO 50 mg Q12H PRN Administration Pain Hospitalist Exam Vitals: Vital Signs (12 hours) Temp Pulse Resp BP BP Pulse Ox 10/22/20 05:00 97.7 F 106 H 18 117/65 95 10/22/20 00:00 100.1 F H 106 H 20 138/65 95 10/21/20 21:58 100 171/63 H 10/21/20 21:50 100 171/63 H 10/21/20 21:46 100 171/63 H Weight Admit Weight 137 lb 11.2 oz Weight 155 lb General Appearance: NAD Heart: RRR, no murmur Respiratory: no wheezes, no rales, no ronchi Gastrointestinal: soft, non-tender, non-distended, normal bowel sounds Skin - other findings: ttp along right lateral malleolus - no palpable defects, no skin changes Psychiatric: normal affect Hosp A/P (1) Renal failure (ARF), acute on chronic Code(s): N17.9 - ACUTE KIDNEY FAILURE, UNSPECIFIED; N18.9 - CHRONIC KIDNEY DISEASE, UNSPECIFIED Status: Acute Qualifiers: Chronic kidney disease stage: stage 5, not on chronic dialysis (2) Anemia Code(s): D64.9 - ANEMIA, UNSPECIFIED Status: Chronic Qualifiers: Anemia type: due to chronic kidney disease Chronic kidney disease stage: stage 5, not on chronic dialysis Qualified Code(s): N18.5 - Chronic kidney disease, stage 5; D63.1 - Anemia in chronic kidney disease (3) Diabetes type 2, uncontrolled Code(s): E11.65 - TYPE 2 DIABETES MELLITUS WITH HYPERGLYCEMIA Status: Chronic Qualifiers: Glycemic state: with hyperglycemia Qualified Code(s): E11.65 - Type 2 diabetes mellitus with hyperglycemia (4) GERD (gastroesophageal reflux disease) Code(s): K21.9 - GASTRO-ESOPHAGEAL REFLUX DISEASE WITHOUT ESOPHAGITIS Status: Chronic Qualifiers: Esophagitis presence: esophagitis presence not specified Qualified Code(s): K21.9 - Gastro-esophageal reflux disease without esophagitis (5) Hypertension Code(s): I10 - ESSENTIAL (PRIMARY) HYPERTENSION Status: Chronic Qualifiers: Hypertension type: essential hypertension Qualified Code(s): I10 - Essential (primary) hypertension - Plan RAFAELA with CKD s/p AV fistula and 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 Tracey - continue pain meds prn - continue elevation HTN - improved control, continue current meds Possible SLE - needs outpatient f/u with Rheum DM - not optimally controlled. - low dose lantus started last night - will adjust with goal glucose 140-180 - on alogliptin No recent BM - scheduled miralax and colace, prn lactulose dvt prophy - scd's gi prophy - not indicated code status full reviewed plan of care with patient and sister at bedside, no questions or further needs at end of eval.
[2020-10-22] MEDS ORDERED: Heparin 5,000 UNITS/ML VIAL SC SCH (09:00)
[2020-10-22] MEDS: Calcium Carbonate 500 MG ChewTAB PO SCH ×3 (09:26→20:47)
[2020-10-22] MEDS: Folic Acid 1 MG TAB PO SCH (09:27)
[2020-10-22] MEDS: hydrALAZINE 25 MG TAB PO SCH ×3 (09:27→22:05)
[2020-10-22] MEDS: Isosorbide Mononitrate 20 MG TAB PO SCH ×2 (09:27→22:07)
[2020-10-22] MEDS: cloNIDine 0.1 MG TAB PO SCH ×3 (09:27→22:05)
[2020-10-22] MEDS: Docusate 100 MG CAP PO SCH ×2 (09:27→20:46)
[2020-10-22] MEDS: Alogliptin 6.25 MG TAB PO SCH (09:27)
[2020-10-22] MEDS: Polyethylene Glycol 3350 17 GM Packet PO SCH (09:28)
[2020-10-22] MEDS: Hydrocortisone 1% Cream 30 GM TUBE TOP SCH ×2 (09:28→20:45)
[2020-10-22] MEDS: Labetalol 100 MG TAB PO SCH ×2 (09:32→22:07)
--- NOTE | 2020-10-22 12:44 | PRG ---
DATE OF SERVICE: 10/22/2020 SUBJECTIVE: Patient was seen and examined at bedside and overnight events noted. Patient denies any shortness of breath or chest pain or palpitation. No history of nausea or vomiting or diarrhea or fever or chills or cramps. OBJECTIVE: General: This is a well-built female in no apparent distress. Vital Signs: Temperature 98.1. Heart Rate 94. Respiratory rate 18. Blood pressure 122/65. HEENT: Atraumatic, normocephalic. Oral mucosa is moist. Neck: Supple. Cardiovascular: S1, S2 heard. Rate and rhythm regular. Respiratory: Clear to auscultation. Gastrointestinal: Abdomen is soft. Musculoskeletal: No tenderness. No edema. Dermatologic: No skin rash. Neurologic: Alert and awake and oriented x3. No focal neurologic deficits. Moving all the extremities. Psychiatric: Mood and affect normal. LABORATORY DATA: Potassium 4.4, BUN is 69, creatinine 6.4. ASSESSMENT AND PLAN: 1. Chronic kidney disease, stage 5. Labs are stable. No acute indication for dialysis. 2. Anemia. Rule out any bleed. Had a dose of Epogen. Agree with PRBC. 3. Acidosis. 4. Hypertension. 5. Anemia of chronic disease. 6. Proteinuria. Labs are stable. No acute indication for dialysis. Continue close monitoring. Job ID: [id number]
[2020-10-22 17:45] LABS: Hemoglobin 7.5 g/dL (12.0-16.0)
[2020-10-22] MEDS: Atorvastatin Calcium 40 MG TAB PO SCH (20:46)
[2020-10-22 21:27] LABS: Glucose 152 mg/dL (80-115)
[2020-10-22] MEDS: Melatonin 3 MG TAB PO PRN (21:59)
[2020-10-22] MEDS: NIFEdipine XL 90 MG TAB PO SCH (22:07)
[2020-10-23] MEDS: HYDROcodone/Acetaminophen 5/325 mg Tablet PO PRN ×2 (02:40→15:14)
[2020-10-23] MEDS: diphenhydrAMINE 25 MG CAP PO PRN ×3 (03:58→21:17)
[2020-10-23] MEDS: Alogliptin 6.25 MG TAB PO SCH (08:31)
[2020-10-23] MEDS: Polyethylene Glycol 3350 17 GM Packet PO SCH (08:31)
[2020-10-23] MEDS: Folic Acid 1 MG TAB PO SCH (08:31)
[2020-10-23] MEDS: Docusate 100 MG CAP PO SCH ×2 (08:31→20:31)
[2020-10-23] MEDS: Isosorbide Mononitrate 20 MG TAB PO SCH ×2 (08:35→20:32)
[2020-10-23] MEDS: cloNIDine 0.1 MG TAB PO SCH ×3 (08:35→20:31)
[2020-10-23] MEDS: hydrALAZINE 25 MG TAB PO SCH ×3 (08:36→20:31)
[2020-10-23] MEDS: Labetalol 100 MG TAB PO SCH ×2 (08:36→20:32)
[2020-10-23] MEDS: Calcium Carbonate 500 MG ChewTAB PO SCH ×3 (08:37→20:30)
[2020-10-23] MEDS: Hydrocortisone 1% Cream 30 GM TUBE TOP SCH ×2 (08:38→20:31)
[2020-10-23 09:48] LABS: #Basophils 0.1 thou/uL (0.0-0.2); #Eosinphils 0.2 thou/uL (0.0-0.7); #Monocytes 1.1 thou/uL (0.11-0.59); #Neutrophils 10.3 thou/uL (1.40-6.50); %Basophils 0.7 % (0.0-1.0); %Eosinophils 1.4 % (0.0-10.0); %Lymphocytes 7.6 % (21.0-51.0); %Monocytes 8.6 % (0.0-10.0); %Neutrophils 81.7 % (42.0-75.0); Hemoglobin 8.2 g/dL (12.0-16.0); Mean Corpuscular HGB CONC 30.3 g/dL (32.0-36.0); Mean Corpuscular Hemoglobin 23.2 pg (27.0-31.0); Mean Corpuscular Volume 76.6 fL (78.0-98.0); Platelet Count 630 thou/uL (130-400); Red Blood Cell (RBC) Count 3.52 mill/uL (4.20-5.40); White Blood Cell (WBC) Count 12.6 thou/uL (4.8-10.8)
[2020-10-23 10:04] LABS: Glucose 264 mg/dL (80-115)
[2020-10-23 10:12] LABS: Anion Gap 20 mmol/L (10-20); BUN (Urea Nitrogen) 68 mg/dL (9.8-20.1); Calc. Creatinine Clearance 10 mL/min (70-130); Calcium 7.3 mg/dL (7.8-10.44); Carbon Dioxide 21 mmol/L (23-31); Chloride 99 mmol/L (98-107); Glucose 264 mg/dL (80-115); Potassium 4.9 mmol/L (3.5-5.1); Sodium 135 mmol/L (136-145)
--- NOTE | 2020-10-23 10:28 | PDOC.HOSPP ---
- Subjective Encounter Date: 10/23/20 Encounter Time: 10:26 Subjective: cont to complain about pain L arm and L leg. reusing PT - Objective Vital Signs & Weight: Vital Signs (12 hours) Temp Pulse Resp BP BP Pulse Ox 10/23/20 10:03 145/67 H 10/23/20 07:56 98.6 F 104 H 18 193/80 H 93 L 10/23/20 04:11 98.4 F 95 18 162/71 H 94 L 10/23/20 04:10 99 160/74 H Weight Admit Weight 137 lb 11.2 oz Weight 155 lb 1.6 oz I&O: 10/22/20 10/23/20 10/24/20 06:59 06:59 06:59 Intake Total 655 950 Output Total 1100 Balance 655 -150 Result Diagrams: 10/23/20 09:37 10/23/20 09:37 Additional Labs: Accuchecks 10/22/20 17:32 POC Glucose 169 H Hospitalist ROS - Medication Medications: Active Medications Generic Name Dose Route Start Last Admin Trade Name Freq PRN Reason Stop Dose Admin Acetaminophen 1,000 mg 10/16/20 14:01 10/22/20 05:52 Acetaminophen 500 Mg Tab PO 1,000 mg Q6H PRN Administration Moderate to Severe Pain (6-10) Acetaminophen/Codeine Phosphate 1 tab 10/17/20 18:56 10/20/20 09:30 Acetaminophen/Codeine 30-300mg Tablet PO 1 tab Q4H PRN Administration Moderate Pain (4-6) Hydrocodone Bitart/Acetaminophen 1 tab 10/20/20 12:09 10/23/20 02:40 Hydrocodone/Acetaminophen 5/325 Mg Tablet PO 1 tab Q6H PRN Administration Moderate Pain (4-6) Alogliptin Benzoate 6.25 mg 10/17/20 09:00 10/23/20 08:31 Alogliptin 6.25 Mg Tab PO 6.25 mg DAILY SHO Administration Atorvastatin Calcium 40 mg 10/08/20 21:00 10/22/20 20:46 Atorvastatin Calcium 40 Mg Tab PO 40 mg HS SHO Administration Benzonatate 100 mg 10/10/20 04:36 10/11/20 04:30 Benzonatate 100 Mg Cap PO 100 mg TIDPRN PRN Administration Cough Calcium Carbonate 1,000 mg 10/21/20 15:00 10/23/20 08:37 Calcium Carbonate 500 Mg Chewtab PO Not Given TID [facility] Clonidine 0.2 mg 10/12/20 15:00 10/23/20 08:35 Clonidine 0.1 Mg Tab PO Not Given TID [facility] Diphenhydramine HCl 12.5 mg 10/10/20 11:58 10/18/20 08:53 Diphenhydramine 50 Mg/Ml Vial IVP 12.5 mg Q6H PRN Administration Itching Diphenhydramine HCl 25 mg 10/17/20 18:56 10/23/20 03:58 Diphenhydramine 25 Mg Cap PO 25 mg Q6H PRN Administration Itching & Insomnia Docusate Sodium 100 mg 10/21/20 21:00 10/23/20 08:31 Docusate 100 Mg Cap PO 100 mg BID [facility] Administration Epoetin Charlie-epbx 7,500 unit 10/19/20 20:00 10/19/20 19:59 Epoetin Charlie-Epbx (Esrd) 4,000 Unit/Ml Vial SC 7,500 unit Q7D [facility] Administration Folic Acid 1 mg 10/08/20 09:00 10/23/20 08:31 Folic Acid 1 Mg Tab PO 1 mg DAILY [facility] Administration Hydralazine HCl 100 mg 10/08/20 09:00 10/23/20 08:36 Hydralazine 25 Mg Tab PO Not Given TID [facility] Hydralazine HCl 10 mg 10/09/20 13:44 10/23/20 04:10 Hydralazine 20 Mg/Ml Vial SLOW IVP 10 mg Q4H PRN Administration Blood Pressure Hydrocortisone/Aloe 0 gm 10/19/20 21:00 10/23/20 08:38 Hydrocortisone 1% Cream 30 Gm Tube TOP 1 applic BID [facility] Administration Promethazine HCl 25 mg/ Sodium 51 mls @ 204 mls/hr 10/14/20 10:30 10/22/20 01:11 Chloride IVPB 51 mls Q6H PRN Administration Nausea/Vomiting Insulin Human Lispro 0 units 10/09/20 13:36 10/22/20 05:54 Humalog 300 Units/3 Ml Vial SC 2 unit .MODERATE SLIDING SC PRN Administration Moderate Correctional Scale Isosorbide Mononitrate 20 mg 10/09/20 21:00 10/23/20 08:35 Isosorbide Mononitrate 20 Mg Tab PO Not Given BID SHO Labetalol HCl 400 mg 10/08/20 09:00 10/23/20 08:36 Labetalol 100 Mg Tab PO Not Given BID SHO Labetalol HCl 20 mg 10/08/20 05:10 10/19/20 18:04 Labetalol Hcl 100 Mg/20 Ml Vial SLOW IVP 4 ml Q4H PRN Administration SBP Greater Than 170 Lactulose 20 gm 10/21/20 15:41 10/21/20 17:27 Lactulose 20 Gm/30 Ml Udcup PO 20 gm DAILYPRN PRN Administration Constipation Melatonin 3 mg 10/15/20 00:45 10/22/20 21:59 Melatonin 3 Mg Tab PO 3 mg HSPRN PRN Administration Insomnia Nifedipine 90 mg 10/15/20 21:00 10/22/20 22:07 Nifedipine Xl 90 Mg Tab PO Not Given HS SHO Polyethylene Glycol 17 gm 10/22/20 09:00 10/23/20 08:31 Polyethylene Glycol 3350 17 Gm Packet PO 17 gm DAILY SHO Administration Throat Lozenges 1 dalton 10/11/20 04:49 10/12/20 20:42 Cepastat Lozenges 1 Dalton PO 1 dalton Q4H PRN Administration Sore Throat Tramadol HCl 50 mg 10/16/20 14:01 10/17/20 16:09 Tramadol Hcl 50 Mg Tab PO 50 mg Q12H PRN Administration Pain Hospitalist Exam Vitals: Vital Signs (12 hours) Temp Pulse Resp BP BP Pulse Ox 10/23/20 10:03 145/67 H 10/23/20 07:56 98.6 F 104 H 18 193/80 H 93 L 10/23/20 04:11 98.4 F 95 18 162/71 H 94 L 10/23/20 04:10 99 160/74 H Weight Admit Weight 137 lb 11.2 oz Weight 155 lb 1.6 oz General Appearance: awake alert Neck: no JVD Heart: RRR, no murmur Respiratory: CTAB Gastrointestinal: soft, normal bowel sounds Extremities: no edema Hosp A/P (1) Renal failure (ARF), acute on chronic Code(s): N17.9 - ACUTE KIDNEY FAILURE, UNSPECIFIED; N18.9 - CHRONIC KIDNEY DISEASE, UNSPECIFIED Status: Acute Qualifiers: Chronic kidney disease stage: stage 5, not on chronic dialysis (2) Rheumatoid arthritis involving both ankles Code(s): M06.9 - RHEUMATOID ARTHRITIS, UNSPECIFIED Status: Chronic Qualifiers: Rheumatoid factor presence: with rheumatoid factor Qualified Code(s): M05.771 - Rheumatoid arthritis with rheumatoid factor of right ankle and foot without organ or systems involvement; M05.772 - Rheumatoid arthritis with rheumatoid factor of left ankle and foot without organ or systems involvement (3) Anemia Code(s): D64.9 - ANEMIA, UNSPECIFIED Status: Chronic Qualifiers: Anemia type: due to chronic kidney disease Chronic kidney disease stage: stage 5, not on chronic dialysis Qualified Code(s): N18.5 - Chronic kidney disease, stage 5; D63.1 - Anemia in chronic kidney disease (4) Diabetes type 2, uncontrolled Code(s): E11.65 - TYPE 2 DIABETES MELLITUS WITH HYPERGLYCEMIA Status: Chronic Qualifiers: Glycemic state: with hyperglycemia Qualified Code(s): E11.65 - Type 2 diabetes mellitus with hyperglycemia (5) Hypertension Code(s): I10 - ESSENTIAL (PRIMARY) HYPERTENSION Status: Chronic Qualifiers: Hypertension type: essential hypertension Qualified Code(s): I10 - Essential (primary) hypertension - Plan stable medically needs placement, declining PT discussed options with her. NH vs REHAB or SNF she agrees to participate in PT
[2020-10-23] MEDS: Acetaminophen/Codeine 30-300mg Tablet PO PRN ×2 (10:50→21:16)
--- NOTE | 2020-10-23 13:29 | PRG ---
DATE OF SERVICE: 10/23/2020 SUBJECTIVE: A 65-year-old female being seen for end-stage renal disease. The patient denies any nausea, vomiting, or chest pain. PHYSICAL EXAMINATION: General: The patient is awake and alert. Vital Signs: Afebrile, pulse 75, breathing at 16, blood pressure 145/67. HEENT: Head normocephalic and atraumatic. Eyes intact, no ulcers. Nose intact, no ulcers. Ears intact, no ulcers. Neck: Supple. No JVD. Chest: Symmetrical and clear. Cardiovascular: Shows S1 and S2, no rub, no murmur. Gastrointestinal: Abdomen is soft, bowel sounds positive. Extremities: Show no edema or ulcers. Skin: Shows no rash or petechiae. Musculoskeletal: Shows no joint swelling or stiffness. Genitourinary: Shows no Hodges or CVA tenderness. Neurologic: Motor intact. Cranial nerves intact. LABORATORY DATA: Hemoglobin 8.2. Creatinine 6.1. ASSESSMENT AND PLAN: 1. Chronic kidney disease, stage 5, stable. 2. Hypertension, stable. 3. Anemia, stable. 4. Hyperkalemia, stable. 5. No indication for dialysis. Job ID: [id number]
--- NOTE | 2020-10-23 13:49 | PRG ---
DATE OF SERVICE: 10/23/2020 SUBJECTIVE: Wendy Roberts is actually doing better today. She can move her fingers better. Her hand is warm. She has palpable ulnar pulse. Her pain is less. OBJECTIVE: VITAL SIGNS: Temperature 98.7 degrees and blood pressure 179/73. 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 The patient underwent 10/19/2020 after the arteriogram, DRIL procedure using saphenous vein in the left leg. She has . The patient's ischemic neuritis should improve with time. At this point, I will see the patient in my office in 2 to 3 weeks, she can be discharged home at anytime. She can use heating pad or warm compresses as necessary. Job ID: [id number]
[2020-10-23] MEDS: Labetalol HCl 100 MG/20 ML VIAL SLOW IVP PRN (13:51)
[2020-10-23] MEDS: HumaLOG 300 UNITS/3 ML VIAL SC PRN (13:57)
[2020-10-23] MEDS: Atorvastatin Calcium 40 MG TAB PO SCH (20:30)
[2020-10-23] MEDS ORDERED: HumaLOG 300 UNITS/3 ML VIAL SC PRN (20:30)
[2020-10-23] MEDS: NIFEdipine XL 90 MG TAB PO SCH (20:32)
[2020-10-24] MEDS: HYDROcodone/Acetaminophen 5/325 mg Tablet PO PRN ×2 (00:44→08:19)
[2020-10-24 07:48] LABS: Glucose 203 mg/dL (80-115)
[2020-10-24] MEDS: diphenhydrAMINE 25 MG CAP PO PRN ×3 (08:24→21:22)
[2020-10-24] MEDS: Docusate 100 MG CAP PO SCH ×2 (08:26→21:26)
[2020-10-24] MEDS: Alogliptin 6.25 MG TAB PO SCH (08:26)
[2020-10-24] MEDS: Folic Acid 1 MG TAB PO SCH (08:26)
[2020-10-24] MEDS: Polyethylene Glycol 3350 17 GM Packet PO SCH (08:27)
--- NOTE | 2020-10-24 08:29 | PDOC.HOSPP ---
- Subjective Encounter Date: 10/24/20 Encounter Time: 08:27 Subjective: alert. pain improved in L hand - Objective Vital Signs & Weight: Vital Signs (12 hours) Temp Pulse Resp BP Pulse Ox 10/24/20 07:24 98.5 F 96 20 155/71 H 93 L 10/24/20 04:00 98.2 F 88 18 115/63 93 L 10/24/20 00:00 98.8 F 85 18 106/61 92 L 10/23/20 20:32 107 H 10/23/20 20:31 107 H Weight Admit Weight 137 lb 11.2 oz Weight 157 lb 8 oz I&O: 10/23/20 10/24/20 10/25/20 06:59 06:59 06:59 Intake Total 950 1160 Output Total 1100 1100 Balance -150 60 Result Diagrams: 10/23/20 09:37 10/24/20 07:23 Additional Labs: Accuchecks 10/24/20 10/23/20 10/23/20 04:21 19:31 16:16 POC Glucose 139 H 229 H 146 H 10/23/20 11:33 POC Glucose 209 H Hospitalist ROS - Medication Medications: Active Medications Generic Name Dose Route Start Last Admin Trade Name Freq PRN Reason Stop Dose Admin Acetaminophen 1,000 mg 10/16/20 14:01 10/22/20 05:52 Acetaminophen 500 Mg Tab PO 1,000 mg Q6H PRN Administration Moderate to Severe Pain (6-10) Acetaminophen/Codeine Phosphate 1 tab 10/17/20 18:56 10/23/20 21:16 Acetaminophen/Codeine 30-300mg Tablet PO 1 tab Q4H PRN Administration Moderate Pain (4-6) Hydrocodone Bitart/Acetaminophen 1 tab 10/20/20 12:09 10/24/20 00:44 Hydrocodone/Acetaminophen 5/325 Mg Tablet PO 1 tab Q6H PRN Administration Moderate Pain (4-6) Alogliptin Benzoate 6.25 mg 10/17/20 09:00 10/23/20 08:31 Alogliptin 6.25 Mg Tab PO 6.25 mg DAILY SHO Administration Atorvastatin Calcium 40 mg 10/08/20 21:00 10/23/20 20:30 Atorvastatin Calcium 40 Mg Tab PO 40 mg HS SHO Administration Benzonatate 100 mg 10/10/20 04:36 10/11/20 04:30 Benzonatate 100 Mg Cap PO 100 mg TIDPRN PRN Administration Cough Calcium Carbonate 1,000 mg 10/21/20 15:00 10/23/20 20:30 Calcium Carbonate 500 Mg Chewtab PO Not Given TID COUNT INCLUDES [facility] Clonidine 0.2 mg 10/12/20 15:00 10/23/20 20:31 Clonidine 0.1 Mg Tab PO Not Given TID COUNT INCLUDES [facility] Diphenhydramine HCl 12.5 mg 10/10/20 11:58 10/18/20 08:53 Diphenhydramine 50 Mg/Ml Vial IVP 12.5 mg Q6H PRN Administration Itching Diphenhydramine HCl 25 mg 10/17/20 18:56 10/23/20 21:17 Diphenhydramine 25 Mg Cap PO 25 mg Q6H PRN Administration Itching & Insomnia Docusate Sodium 100 mg 10/21/20 21:00 10/23/20 20:31 Docusate 100 Mg Cap PO 100 mg BID COUNT INCLUDES THE [facility] Administration Epoetin Charlie-epbx 7,500 unit 10/19/20 20:00 10/19/20 19:59 Epoetin Charlie-Epbx (Esrd) 4,000 Unit/Ml Vial SC 7,500 unit Q7D COUNT INCLUDES THE [facility] Administration Folic Acid 1 mg 10/08/20 09:00 10/23/20 08:31 Folic Acid 1 Mg Tab PO 1 mg DAILY SHO Administration Hydralazine HCl 100 mg 10/08/20 09:00 10/23/20 20:31 Hydralazine 25 Mg Tab PO Not Given TID COUNT INCLUDES [facility] Hydralazine HCl 10 mg 10/09/20 13:44 10/23/20 04:10 Hydralazine 20 Mg/Ml Vial SLOW IVP 10 mg Q4H PRN Administration Blood Pressure Hydrocortisone/Aloe 0 gm 10/19/20 21:00 10/23/20 20:31 Hydrocortisone 1% Cream 30 Gm Tube TOP 1 applic BID COUNT INCLUDES THE [facility] Administration Promethazine HCl 25 mg/ Sodium 51 mls @ 204 mls/hr 10/14/20 10:30 10/22/20 01:11 Chloride IVPB 51 mls Q6H PRN Administration Nausea/Vomiting Insulin Human Lispro 0 units 10/09/20 13:36 10/23/20 13:57 Humalog 300 Units/3 Ml Vial SC 4 unit .MODERATE SLIDING SC PRN Administration Moderate Correctional Scale Insulin Human Lispro 0 units 10/23/20 20:30 10/23/20 21:24 Humalog 300 Units/3 Ml Vial SC 2 unit .BEDTIME SLIDING SC PRN Administration BEDTIME SLIDING SCALE Protocol Isosorbide Mononitrate 20 mg 10/09/20 21:00 10/23/20 20:32 Isosorbide Mononitrate 20 Mg Tab PO Not Given BID SHO Labetalol HCl 400 mg 10/08/20 09:00 10/23/20 20:32 Labetalol 100 Mg Tab PO Not Given BID SHO Labetalol HCl 20 mg 10/08/20 05:10 10/23/20 13:51 Labetalol Hcl 100 Mg/20 Ml Vial SLOW IVP 4 ml Q4H PRN Administration SBP Greater Than 170 Lactulose 20 gm 10/21/20 15:41 10/21/20 17:27 Lactulose 20 Gm/30 Ml Udcup PO 20 gm DAILYPRN PRN Administration Constipation Melatonin 3 mg 10/15/20 00:45 10/22/20 21:59 Melatonin 3 Mg Tab PO 3 mg HSPRN PRN Administration Insomnia Nifedipine 90 mg 10/15/20 21:00 10/23/20 20:32 Nifedipine Xl 90 Mg Tab PO Not Given HS COUNT INCLUDES [facility] Polyethylene Glycol 17 gm 10/22/20 09:00 10/23/20 08:31 Polyethylene Glycol 3350 17 Gm Packet PO 17 gm DAILY SHO Administration Promethazine HCl 25 mg 10/14/20 10:30 10/23/20 21:15 Promethazine 25 Mg Tab PO 25 mg Q6H PRN Administration Nausea/Vomiting Throat Lozenges 1 dalton 10/11/20 04:49 10/12/20 20:42 Cepastat Lozenges 1 Dalton PO 1 dalton Q4H PRN Administration Sore Throat Tramadol HCl 50 mg 10/16/20 14:01 10/17/20 16:09 Tramadol Hcl 50 Mg Tab PO 50 mg Q12H PRN Administration Pain Hospitalist Exam Vitals: Vital Signs (12 hours) Temp Pulse Resp BP Pulse Ox 10/24/20 07:24 98.5 F 96 20 155/71 H 93 L 10/24/20 04:00 98.2 F 88 18 115/63 93 L 10/24/20 00:00 98.8 F 85 18 106/61 92 L 10/23/20 20:32 107 H 10/23/20 20:31 107 H Weight Admit Weight 137 lb 11.2 oz Weight 157 lb 8 oz General Appearance: awake alert Neck: no JVD Heart: RRR, no murmur Respiratory: CTAB Gastrointestinal: soft, non-distended, normal bowel sounds Extremities: 1+ LE edema Hosp A/P (1) Renal failure (ARF), acute on chronic Code(s): N17.9 - ACUTE KIDNEY FAILURE, UNSPECIFIED; N18.9 - CHRONIC KIDNEY DISEASE, UNSPECIFIED Status: Acute Qualifiers: Chronic kidney disease stage: stage 5, not on chronic dialysis (2) Rheumatoid arthritis involving both ankles Code(s): M06.9 - RHEUMATOID ARTHRITIS, UNSPECIFIED Status: Chronic Qualifiers: Rheumatoid factor presence: with rheumatoid factor Qualified Code(s): M 05.771 - Rheumatoid arthritis with rheumatoid factor of right ankle and foot without organ or systems involvement; M05.772 - Rheumatoid arthritis with rheumatoid factor of left ankle and foot without organ or systems involvement (3) Anemia Code(s): D64.9 - ANEMIA, UNSPECIFIED Status: Chronic Qualifiers: Anemia type: due to chronic kidney disease Chronic kidney disease stage: stage 5, not on chronic dialysis Qualified Code(s): N18.5 - Chronic kidney disease, stage 5; D63.1 - Anemia in chronic kidney disease (4) Diabetes type 2, uncontrolled Code(s): E11.65 - TYPE 2 DIABETES MELLITUS WITH HYPERGLYCEMIA Status: Chronic Qualifiers: Glycemic state: with hyperglycemia Qualified Code(s): E11.65 - Type 2 diabetes mellitus with hyperglycemia (5) Hypertension Code(s): I10 - ESSENTIAL (PRIMARY) HYPERTENSION Status: Chronic Qualifiers: Hypertension type: essential hypertension Qualified Code(s): I10 - Essential (primary) hypertension - Plan stable medically needs placement, declining PT option. NH vs REHAB or SNF participating PT in PT reinstitute hydralazine, imdur, etc cont accu/ss/ etc
[2020-10-24] MEDS: cloNIDine 0.1 MG TAB PO SCH ×3 (08:37→21:23)
[2020-10-24] MEDS: Calcium Carbonate 500 MG ChewTAB PO SCH ×3 (08:37→21:24)
[2020-10-24] MEDS: hydrALAZINE 25 MG TAB PO SCH ×3 (08:42→21:23)
[2020-10-24] MEDS ORDERED: Non-Formulary Item 1 EACH (Cyanocobalamin (Vitamin B-12) [B-12] 500 MCG Tablet) PO SCH (09:00)
[2020-10-24] MEDS ORDERED: Non-Formulary Item 1 EACH (Omeprazole [Omeprazole] 20 MG Capsule.Dr) PO SCH (09:00)
[2020-10-24] MEDS ORDERED: Non-Formulary Item 1 EACH (Hydralazine Hcl [Hydralazine Hcl] 100 MG Tablet) PO SCH (09:00)
[2020-10-24] MEDS: Isosorbide Mononitrate 20 MG TAB PO SCH ×2 (09:17→21:27)
[2020-10-24] MEDS: Labetalol 100 MG TAB PO SCH ×2 (09:18→21:26)
[2020-10-24] MEDS: Hydrocortisone 1% Cream 30 GM TUBE TOP SCH ×2 (11:27→21:00)
[2020-10-24] MEDS: glipiZIDE 5 MG TAB PO SCH (11:31)
[2020-10-24] MEDS: Cyanocobalamin (Vitamin B-12) 1,000 MCG TAB PO SCH (11:31)
[2020-10-24] MEDS: Furosemide 20 MG TAB PO SCH (11:31)
[2020-10-24 12:30] LABS: Glucose 201 mg/dL (80-115)
[2020-10-24 12:55] VITALS: BMI 29.7
[2020-10-24] MEDS: HumaLOG 300 UNITS/3 ML VIAL SC PRN (13:19)
[2020-10-24] MEDS: Acetaminophen/Codeine 30-300mg Tablet PO PRN ×2 (15:13→21:22)
--- NOTE | 2020-10-24 15:35 | PRG ---
DATE OF SERVICE: SUBJECTIVE: A 65-year-old female being seen for stage 5 chronic kidney. The patient denied nausea, vomiting, chest pain. OBJECTIVE: GENERAL: The patient is awake and alert. VITAL SIGNS: Afebrile, pulse 90, breathing at 16, blood pressure 115/60. HEENT: Head normocephalic and atraumatic. Eyes intact, no ulcers. Nose intact, no ulcers. Ears intact, no ulcers. NECK: Supple. No JVD. CHEST: Symmetrical and clear. CARDIOVASCULAR: Shows S1 and S2, no rub, no murmur. GASTROINTESTINAL: Abdomen is soft, bowel sounds positive. EXTREMITIES: Show no edema or ulcers. SKIN: Shows no rash or petechiae. MUSCULOSKELETAL: Shows no joint swelling or stiffness. GENITOURINARY: Shows no Hodges or CVA tenderness. NEUROLOGIC: Motor intact. Cranial nerves intact. LABORATORY DATA: Hemoglobin 8.2. Blood glucose 201. ASSESSMENT: 1. Stage 5 chronic kidney disease, stable. 2. Hypertension, stable. 3. Anemia, stable. PLAN: We will order labs in the morning. No indication for dialysis as of labs. Job ID: [id number]
[2020-10-24] MEDS: Atorvastatin Calcium 40 MG TAB PO SCH (21:25)
[2020-10-24] MEDS: NIFEdipine XL 90 MG TAB PO SCH (21:27)
[2020-10-25 06:24] LABS: Anion Gap 15 mmol/L (10-20); BUN (Urea Nitrogen) 58 mg/dL (9.8-20.1); Calc. Creatinine Clearance 13 mL/min (70-130); Calcium 7.4 mg/dL (7.8-10.44); Carbon Dioxide 24 mmol/L (23-31); Chloride 102 mmol/L (98-107); Glucose 180 mg/dL (80-115); Potassium 4.4 mmol/L (3.5-5.1); Sodium 137 mmol/L (136-145)
[2020-10-25] MEDS: Calcium Carbonate 500 MG ChewTAB PO SCH ×2 (08:10→15:10)
[2020-10-25] MEDS: Alogliptin 6.25 MG TAB PO SCH (08:10)
[2020-10-25] MEDS: cloNIDine 0.1 MG TAB PO SCH ×2 (08:11→15:11)
[2020-10-25] MEDS: Docusate 100 MG CAP PO SCH (08:12)
[2020-10-25] MEDS: Cyanocobalamin (Vitamin B-12) 1,000 MCG TAB PO SCH (08:12)
[2020-10-25] MEDS: Folic Acid 1 MG TAB PO SCH (08:13)
[2020-10-25] MEDS: Furosemide 20 MG TAB PO SCH (08:14)
[2020-10-25] MEDS: glipiZIDE 5 MG TAB PO SCH (08:14)
[2020-10-25] MEDS: hydrALAZINE 25 MG TAB PO SCH (08:15)
[2020-10-25] MEDS: Hydrocortisone 1% Cream 30 GM TUBE TOP SCH (08:15)
[2020-10-25] MEDS: Isosorbide Mononitrate 20 MG TAB PO SCH (08:16)
[2020-10-25] MEDS: Labetalol 100 MG TAB PO SCH (08:17)
[2020-10-25] MEDS: Polyethylene Glycol 3350 17 GM Packet PO SCH (08:18)
[2020-10-25] MEDS: Acetaminophen/Codeine 30-300mg Tablet PO PRN (08:20)
[2020-10-25] MEDS: diphenhydrAMINE 25 MG CAP PO PRN (08:22)
--- NOTE | 2020-10-25 09:07 | PDOC.HOSPP ---
- Subjective Encounter Date: 10/25/20 Encounter Time: 08:54 - Objective Vital Signs & Weight: Vital Signs (12 hours) Temp Pulse Resp BP BP BP BP 10/25/20 08:17 95 155/71 H 10/25/20 08:15 95 155/71 H 10/25/20 08:11 155/71 H 10/25/20 07:25 98.5 F 95 15 155/71 H 10/25/20 04:44 98.4 F 98 20 146/71 H 10/25/20 04:00 98.4 F 98 20 146/71 H 146/71 H 10/25/20 00:00 98.5 F 88 20 149/68 H 10/24/20 21:27 99 160/68 H 10/24/20 21:26 99 160/68 H 10/24/20 21:23 99 160/68 H Pulse Ox 10/25/20 08:17 10/25/20 08:15 10/25/20 08:11 10/25/20 07:25 95 10/25/20 04:44 95 10/25/20 04:00 95 10/25/20 00:00 95 10/24/20 21:27 10/24/20 21:26 10/24/20 21:23 Weight Admit Weight 137 lb 11.2 oz Weight 157 lb 8 oz I&O: 10/24/20 10/25/20 10/26/20 06:59 06:59 06:59 Intake Total 1160 Output Total 1100 Balance 60 Result Diagrams: 10/23/20 09:37 10/25/20 05:47 Hospitalist ROS - Medication Medications: Active Medications Generic Name Dose Route Start Last Admin Trade Name Freq PRN Reason Stop Dose Admin Acetaminophen 1,000 mg 10/16/20 14:01 10/22/20 05:52 Acetaminophen 500 Mg Tab PO 1,000 mg Q6H PRN Administration Moderate to Severe Pain (6-10) Acetaminophen/Codeine Phosphate 1 tab 10/17/20 18:56 10/25/20 08:20 Acetaminophen/Codeine 30-300mg Tablet PO 1 tab Q4H PRN Administration Moderate Pain (4-6) Hydrocodone Bitart/Acetaminophen 1 tab 10/20/20 12:09 10/24/20 08:19 Hydrocodone/Acetaminophen 5/325 Mg Tablet PO 1 tab Q6H PRN Administration Moderate Pain (4-6) Alogliptin Benzoate 6.25 mg 10/17/20 09:00 10/25/20 08:10 Alogliptin 6.25 Mg Tab PO 6.25 mg DAILY SHO Administration Atorvastatin Calcium 40 mg 10/08/20 21:00 10/24/20 21:25 Atorvastatin Calcium 40 Mg Tab PO 40 mg HS SHO Administration Benzonatate 100 mg 10/10/20 04:36 10/11/20 04:30 Benzonatate 100 Mg Cap PO 100 mg TIDPRN PRN Administration Cough Calcium Carbonate 1,000 mg 10/21/20 15:00 10/25/20 08:10 Calcium Carbonate 500 Mg Chewtab PO Not Given TID SHO Clonidine 0.2 mg 10/12/20 15:00 10/25/20 08:11 Clonidine 0.1 Mg Tab PO Not Given TID SHO Cyanocobalamin 500 mcg 10/24/20 09:00 10/25/20 08:12 Cyanocobalamin (Vitamin B-12) 1,000 Mcg Tab PO Not Given DAILY SHO Diphenhydramine HCl 12.5 mg 10/10/20 11:58 10/18/20 08:53 Diphenhydramine 50 Mg/Ml Vial IVP 12.5 mg Q6H PRN Administration Itching Diphenhydramine HCl 25 mg 10/17/20 18:56 10/25/20 08:22 Diphenhydramine 25 Mg Cap PO 25 mg Q6H PRN Administration Itching & Insomnia Docusate Sodium 100 mg 10/21/20 21:00 10/25/20 08:12 Docusate 100 Mg Cap PO 100 mg BID SHO Administration Epoetin Charlie-epbx 7,500 unit 10/19/20 20:00 10/19/20 19:59 Epoetin Charlie-Epbx (Esrd) 4,000 Unit/Ml Vial SC 7,500 unit Q7D SHO Administration Folic Acid 1 mg 10/08/20 09:00 10/25/20 08:13 Folic Acid 1 Mg Tab PO 1 mg DAILY SHO Administration Furosemide 20 mg 10/24/20 09:00 10/25/20 08:14 Furosemide 20 Mg Tab PO Not Given DAILY SHO Glipizide 2.5 mg 10/24/20 09:00 10/25/20 08:14 Glipizide 5 Mg Tab PO Not Given DAILY [facility] Hydralazine HCl 10 mg 10/09/20 13:44 10/23/20 04:10 Hydralazine 20 Mg/Ml Vial SLOW IVP 10 mg Q4H PRN Administration Blood Pressure Hydralazine HCl 100 mg 10/24/20 09:00 10/25/20 08:15 Hydralazine 25 Mg Tab PO Not Given BID [facility] Hydrocortisone/Aloe 0 gm 10/19/20 21:00 10/25/20 08:15 Hydrocortisone 1% Cream 30 Gm Tube TOP Not Given BID [facility] Promethazine HCl 25 mg/ Sodium 51 mls @ 204 mls/hr 10/14/20 10:30 10/22/20 01 :11 Chloride IVPB 51 mls Q6H PRN Administration Nausea/Vomiting Insulin Human Lispro 0 units 10/09/20 13:36 10/24/20 13:19 Humalog 300 Units/3 Ml Vial SC 4 unit .MODERATE SLIDING SC PRN Administration Moderate Correctional Scale Insulin Human Lispro 0 units 10/23/20 20:30 10/23/20 21:24 Humalog 300 Units/3 Ml Vial SC 2 unit .BEDTIME SLIDING SC PRN Administration BEDTIME SLIDING SCALE Protocol Isosorbide Mononitrate 20 mg 10/24/20 09:00 10/25/20 08:16 Isosorbide Mononitrate 20 Mg Tab PO Not Given BID [facility] Labetalol HCl 400 mg 10/08/20 09:00 10/25/20 08:17 Labetalol 100 Mg Tab PO Not Given BID [facility] Labetalol HCl 20 mg 10/08/20 05:10 10/23/20 13:51 Labetalol Hcl 100 Mg/20 Ml Vial SLOW IVP 4 ml Q4H PRN Administration SBP Greater Than 170 Lactulose 20 gm 10/21/20 15:41 10/21/20 17:27 Lactulose 20 Gm/30 Ml Udcup PO 20 gm DAILYPRN PRN Administration Constipation Melatonin 3 mg 10/15/20 00:45 10/22/20 21:59 Melatonin 3 Mg Tab PO 3 mg HSPRN PRN Administration Insomnia Nifedipine 90 mg 10/15/20 21:00 10/24/20 21:27 Nifedipine Xl 90 Mg Tab PO 90 mg HS SHO Administration Pantoprazole Sodium 40 mg 10/25/20 09:00 10/25/20 08:18 Pantoprazole 40 Mg Tab PO Not Given DAILY SHO Polyethylene Glycol 17 gm 10/22/20 09:00 10/25/20 08:18 Polyethylene Glycol 3350 17 Gm Packet PO Not Given DAILY SHO Promethazine HCl 25 mg 10/14/20 10:30 10/23/20 21:15 Promethazine 25 Mg Tab PO 25 mg Q6H PRN Administration Nausea/Vomiting Throat Lozenges 1 dalton 10/11/20 04:49 10/12/20 20:42 Cepastat Lozenges 1 Dalton PO 1 dalton Q4H PRN Administration Sore Throat Tramadol HCl 50 mg 10/16/20 14:01 10/17/20 16:09 Tramadol Hcl 50 Mg Tab PO 50 mg Q12H PRN Administration Pain Hospitalist Exam Vitals: Vital Signs (12 hours) Temp Pulse Resp BP BP BP BP 10/25/20 08:17 95 155/71 H 10/25/20 08:15 95 155/71 H 10/25/20 08:11 155/71 H 10/25/20 07:25 98.5 F 95 15 155/71 H 10/25/20 04:44 98.4 F 98 20 146/71 H 10/25/20 04:00 98.4 F 98 20 146/71 H 146/71 H 10/25/20 00:00 98.5 F 88 20 149/68 H 10/24/20 21:27 99 160/68 H 10/24/20 21:26 99 160/68 H 10/24/20 21:23 99 160/68 H Pulse Ox 10/25/20 08:17 10/25/20 08:15 10/25/20 08:11 10/25/20 07:25 95 10/25/20 04:44 95 10/25/20 04:00 95 10/25/20 00:00 95 10/24/20 21:27 10/24/20 21:26 10/24/20 21:23 Weight Admit Weight 137 lb 11.2 oz Weight 157 lb 8 oz Hosp A/P (1) Renal failure (ARF), acute on chronic Code(s): N17.9 - ACUTE KIDNEY FAILURE, UNSPECIFIED; N18.9 - CHRONIC KIDNEY DISEASE, UNSPECIFIED Status: Acute Qualifiers: Chronic kidney disease stage: stage 5, not on chronic dialysis (2) Rheumatoid arthritis involving both ankles Code(s): M06.9 - RHEUMATOID ARTHRITIS, UNSPECIFIED Status: Chronic Qualifiers: Rheumatoid factor presence: with rheumatoid factor Qualified Code(s): M05.771 - Rheumatoid arthritis with rheumatoid factor of right ankle and foot without organ or systems involvement; M05.772 - Rheumatoid arthritis with rheumatoid factor of left ankle and foot without organ or systems involvement (3) Anemia Code(s): D64.9 - ANEMIA, UNSPECIFIED Status: Chronic Qualifiers: Anemia type: due to chronic kidney disease Chronic kidney disease stage: stage 5, not on chronic dialysis Qualified Code(s): N18.5 - Chronic kidney disease, stage 5; D63.1 - Anemia in chronic kidney disease (4) Diabetes type 2, uncontrolled Code(s): E11.65 - TYPE 2 DIABETES MELLITUS WITH HYPERGLYCEMIA Status: Chronic Qualifiers: Glycemic state: with hyperglycemia Qualified Code(s): E11.65 - Type 2 diabetes mellitus with hyperglycemia (5) Hypertension Code(s): I10 - ESSENTIAL (PRIMARY) HYPERTENSION Status: Chronic Qualifiers: Hypertension type: essential hypertension Qualified Code(s): I10 - Essential (primary) hypertension - Plan stable medically needs placement, declining PT option. NH vs REHAB or SNF participating PT in PT reinstitute hydralazine, imdur, etc cont accu/ss/ etc
--- NOTE | 2020-10-25 10:32 | DIS ---
DATE OF ADMISSION: 10/08/2020 DATE OF DISCHARGE: 10/25/2020 PRIMARY CARE PHYSICIAN: DISPOSITION: Discharged home. FINAL DIAGNOSES: End-stage renal disease, hypertension, diabetes mellitus type 2, rheumatoid arthritis, anemia requiring transfusion. DISCHARGE MEDICATIONS: 1. Hydralazine 100 mg p.o. b.i.d. 2. Glipizide 2.5 mg a day. 3. Catapres 0.3 mg p.o. b.i.d. 4. Omeprazole 20 mg a day. 5. Tradjenta 5 mg a day. 6. Labetalol 400 mg p.o. b.i.d. 7. Imdur 20 mg p.o. b.i.d. 8. Lasix 20 mg a day. 9. Folvite 1 mg a day. 10. B12 of 500 mcg a day. 11. Atorvastatin 40 mg a day. 12. Tylenol No. 3 one tablet q.8 hours p.r.n. for pain. ALLERGIES: SULFA, CODEINE, AND CITRIC ACID. CODE STATUS: Full. DIET: Diabetic. PENDING AT THE TIME OF DISCHARGE: Nothing. HOSPITAL COURSE: The patient admitted to the emergency room to the Hospitalist Service with heel and knee pain. She reported 10/10 and some vague chest pain. She was seen in consultation by Cosmo Lezama MD, Orthopedic Surgery; Tatyana Messer MD, Nephrology; Robert Tracey MD, General Surgery. Procedures on 10/16/2020, AV fistula for chronic hemodialysis expected in the future. The patient had multiple x-rays, Dr. Lezama decided she had a severe flare-up of rheumatoid arthritis in the right knee, noted that her synovial fluid, white count was only 300. She had an injection of dexamethasone into the right knee joint. Dr. Messer noted she had elevated creatinine with acidosis. No need for dialysis at this time. Admitting laboratories, CBC; white count 18.3, hemoglobin 10.9, platelet count 318,000 with a left shift. Sodium 134, potassium 4.5, carbon dioxide 20, BUN 53, creatinine 4.74 with an estimated GFR of 11. Calcium and magnesium were both low. Cardiac enzymes were normal. Rheumatoid factor was high. KIRSTEN was high. SARS was negative. Initially, the patient was started on low-dose steroids and adjusted dose of methotrexate. Cultures were ordered and she was started on Rocephin for the elevated white count. Magnesium, etc, was replaced. Urine synovial fluid and blood cultures were all negative. On 10/10/2020, she was doing well, who reviewed her medications. Diagnosis of atypical chest pain was made. She would follow with her rheumatoid arthritis doctors in outpatient. Methotrexate was discontinued. On 10/12/2020, she referred to Dr. Tracey for an AV fistula for hemodialysis. This was eventually performed on 10/16/2020. On that date, hospitalist progressed no notes. Her diabetes continued to be monitored. On 10/18/2020, she was seen in consultation by Dr. Darren Roberts because of pain in her left arm post brachial artery vein dialysis fistula. There was concern for ischemic hand with steal. Plan for angiograms was made. On 10/19/2020, the patient underwent ultrasound guided right femoral artery access with arch aortogram, left subclavian artery angiogram, left brachial artery angiogram, left radial artery angiogram, left ulnar artery angiogram, and closure of right groin access site. The patient continued during hospital stay to have pain and numbness in her hand, which slowly improved. On 10/20/2020, she continued to have no need for acute dialysis and was slowly improving because of her pain, etc. She was referred for rehab, group home facility. At this point, she has decided that she would rather go home. Her blood pressure currently is 155/71. Heart and lungs are clear. Current laboratory most recently; white count had dropped down to 10.2 after injection of steroid. Hemoglobin 9.3 this was done on 10/11. Her most recent laboratory reveals a creatinine of 4.98 with a GFR of 11. Electrolytes are balanced. Blood sugars are running 200. She is being discharged for followup with her PCP in 3 to 7 days to follow up with Dr. Messer or Dr. Ortiz. Per their recommendation, she is not on dialysis at this time. 35 minutes spent preparing this discharge. Job ID: [id number]
[2020-10-25 15:09] VITALS: BP 138/64; TEMP 98.3
--- NOTE | 2020-10-25 16:12 | PRG ---
DATE OF SERVICE: 10/25/2020 SUBJECTIVE: A 65-year-old female being seen for stage 5 chronic kidney disease. The patient denies any nausea, vomiting, or chest pain. OBJECTIVE: GENERAL: The patient is awake and alert. Vital Signs: Afebrile, pulse 91, breathing at 16, blood pressure 138/64. HEENT: Head normocephalic and atraumatic. Eyes intact, no ulcers. Nose intact, no ulcers. Ears intact, no ulcers. NECK: Supple. No JVD. CHEST: Symmetrical and clear. CARDIOVASCULAR: Shows S1 and S2, no rub, no murmur. GASTROINTESTINAL: Abdomen is soft, bowel sounds positive. Extremities: Show no edema or ulcers. SKIN: Shows no rash or petechiae. musculoskeletal: Shows no joint swelling or stiffness. Genitourinary: Shows no Hodges or CVA tenderness. NEUROLOGIC: Motor intact. Cranial nerves intact. LABORATORY DATA: Labs reviewed. ASSESSMENT AND PLAN: 1. chronic kidney disease. Plan dialysis. 2. Hypertensive, stable. 3. Anemia, stable. 4. Medication based on GFR appropriate no indication for dialysis. The patient will follow up in 1-2 weeks to see me. The patient has stage 5 chronic kidney disease. Job ID: [id number]
== END 2020-10-25 15:22 | disposition home health service (06) | DRG 674 ==
LOC: ERS 14:33 → 2NO 20:17 → OBSVTOIN 10-08 14:34 → T4-B 10-17 17:03
PROVIDERS: ADMIT Internal Medicine; ATTEND Internal Medicine
PROC: 0S9C3ZZ Drainage of Right Knee Joint, Percutaneous Approach (ICD-10-PCS; 2020-10-08)
PROC: 3E0U33Z Introduction of Anti-inflammatory into Joints, Percutaneous Approach (ICD-10-PCS; 2020-10-08)
PROC: 8E0ZXY6 Isolation (ICD-10-PCS; 2020-10-11)
PROC: 03180ZD Bypass Left Brachial Artery to Upper Arm Vein, Open Approach (ICD-10-PCS; 2020-10-16)
PROC: 3E033XZ Introduction of Vasopressor into Peripheral Vein, Percutaneous Approach (ICD-10-PCS; 2020-10-16)
PROC: B310ZZZ Fluoroscopy of Thoracic Aorta (ICD-10-PCS; 2020-10-18)
PROC: B31JZZZ Fluoroscopy of Left Upper Extremity Arteries (ICD-10-PCS; 2020-10-18)
PROC: 031709D Bypass Right Brachial Artery to Upper Arm Vein with Autologous Venous Tissue, Open Approach (ICD-10-PCS; principal; 2020-10-19)
PROC: 06BQ0ZZ Excision of Left Saphenous Vein, Open Approach (ICD-10-PCS; 2020-10-19)
PROC: 30233N1 Transfusion of Nonautologous Red Blood Cells into Peripheral Vein, Percutaneous Approach (ICD-10-PCS; 2020-10-22)
DX: N17.9 Acute kidney failure, unspecified (principal); I12.0 Hypertensive chronic kidney disease with stage 5 chronic kidney disease or end stage renal disease; E87.2 Acidosis; E87.1 Hypo-osmolality and hyponatremia; T82.898A Other specified complication of vascular prosthetic devices, implants and grafts, initial encounter; N18.6 End stage renal disease; M06.9 Rheumatoid arthritis, unspecified; Z20.822 Contact with and (suspected) exposure to COVID-19; E11.22 Type 2 diabetes mellitus with diabetic chronic kidney disease; D63.1 Anemia in chronic kidney disease; E83.42 Hypomagnesemia; R07.89 Other chest pain; K21.9 Gastro-esophageal reflux disease without esophagitis; E87.70 Fluid overload, unspecified; I08.1 Rheumatic disorders of both mitral and tricuspid valves; E11.65 Type 2 diabetes mellitus with hyperglycemia; T38.0X5A Adverse effect of glucocorticoids and synthetic analogues, initial encounter; E83.51 Hypocalcemia; Y83.2 Surgical operation with anastomosis, bypass or graft as the cause of abnormal reaction of the patient, or of later complication, without mention of misadventure at the time of the procedure; E87.5 Hyperkalemia; Z28.21 Immunization not carried out because of patient refusal; Z90.710 Acquired absence of both cervix and uterus; Z98.41 Cataract extraction status, right eye; Z86.16 Personal history of COVID-19; Z88.5 Allergy status to narcotic agent; Z88.2 Allergy status to sulfonamides; Z79.899 Other long term (current) drug therapy; Z79.84 Long term (current) use of oral hypoglycemic drugs
CPT/HCPCS: 20610; 36217; 36221; 36415; 36416; 36430; 71045; 71046; 75710; 76942; 80048; 80053; 81001; 81003; 81015; 82306; 82533; 82550; 82570; 82945; 82947; 83036; 83520; 83605; 83735; 83970; 84156; 84443; 84484; 85007; 85025; 85027; 85060; 85652; 86038; 86140; 86160; 86200; 86225; 86850; 86900; 86901; 86922; 87040; 87070; 87086; 87205; 87635; 89051; 89060; 93005; 93010; 93970; 96365; 96372; 96375; 96376; 99152; G0378; J0171; J0360; J0690; J0696; J1100; J1200; J1644; J1650; J1815; J2001; J2250; J2270; J2405; J2550; J2704; J2720; J2765; J3010; J3475; J3490; J7070; J7512; J8610; L8670; P9016; Q0163; Q0169; Q5105; Q9967; S0020; U0003; U0005

== ENCOUNTER 2020-11-21 08:39 | Day surgery (SDC) | payer MEDICARE ==
[2020-11-21] MEDS ORDERED: Sodium Chloride 0.9% 20 ML ONE (09:45)
[2020-11-21] MEDS ORDERED: Acetaminophen 500 MG TAB PO PRN (10:01)
[2020-11-21] MEDS ORDERED: diphenhydrAMINE 25 MG CAP PO PRN (10:02)
[2020-11-21 16:37] VITALS: BP 195/89; TEMP 98.2
== END 2020-11-21 16:38 | disposition home or self-care (01) ==
LOC: ONC/OP 08:39
PROVIDERS: ATTEND Internal Medicine Hematology & Oncology
PROC: 30233N1 Transfusion of Nonautologous Red Blood Cells into Peripheral Vein, Percutaneous Approach (ICD-10-PCS; principal; 2020-11-21)
DX: D64.9 Anemia, unspecified (principal); D69.6 Thrombocytopenia, unspecified; Z88.2 Allergy status to sulfonamides; Z88.5 Allergy status to narcotic agent; Z88.8 Allergy status to other drugs, medicaments and biological substances
CPT/HCPCS: 36430; 86850; 86900; 86901; 86922; P9016; Q0163

== ENCOUNTER 2020-12-13 09:01 | Outpatient (CLI) | payer MEDICARE ==
[2020-12-13] MEDS ORDERED: Iopamidol 370 76% 50 ML VIAL FS ONE (14:52)
== END 2020-12-13 09:02 | disposition home or self-care (01) ==
LOC: CT 09:01
PROVIDERS: ATTEND Physician Assistant Medical
DX: D64.9 Anemia, unspecified (principal); J90 Pleural effusion, not elsewhere classified; I51.7 Cardiomegaly; K57.30 Diverticulosis of large intestine without perforation or abscess without bleeding; K59.00 Constipation, unspecified; M43.17 Spondylolisthesis, lumbosacral region; I70.0 Atherosclerosis of aorta; I70.8 Atherosclerosis of other arteries; R60.0 Localized edema; Z90.710 Acquired absence of both cervix and uterus
CPT/HCPCS: 74176; 82565; Q9967

== ENCOUNTER 2021-03-02 12:08 | Inpatient (IN) | payer MEDICARE ==
[2021-03-02] MEDS ORDERED: hydrALAZINE 20 MG/ML VIAL ONE (12:57)
[2021-03-02] MEDS ORDERED: Furosemide 40 MG/4 ML VIAL ONE (12:57)
[2021-03-02] MEDS ORDERED: Morphine 4 MG/ML VIAL ONE ×2 (12:57→14:53)
[2021-03-02 13:11] LABS: #Basophils 0.1 thou/uL (0.0-0.2); #Eosinphils 0.1 thou/uL (0.0-0.7); #Lymphocytes 1.3 thou/uL (1.20-3.40); #Monocytes 0.7 thou/uL (0.11-0.59); %Basophils 1.1 % (0.0-1.0); %Eosinophils 1.8 % (0.0-10.0); %Lymphocytes 17.9 % (21.0-51.0); %Monocytes 9.8 % (0.0-10.0); %Neutrophils 69.4 % (42.0-75.0); Mean Corpuscular HGB CONC 29.8 g/dL (32.0-36.0); Mean Corpuscular Hemoglobin 21.6 pg (27.0-31.0); Mean Corpuscular Volume 72.4 fL (78.0-98.0); Mean Platelet Volume 8.5 fL (7.4-10.4); Platelet Count 543 thou/uL (130-400); RBC Distribution Width 17.8 % (11.5-14.5); Red Blood Cell (RBC) Count 4.63 mill/uL (4.20-5.40); White Blood Cell (WBC) Count 7.1 thou/uL (4.8-10.8)
[2021-03-02 13:33] LABS: ALT (SGPT) Less than 7 U/L (8-55); AST (SGOT) 13 U/L (5-34); Albumin 3.2 g/dL (3.4-4.8); Alkaline Phosphatase 63 U/L (40-110); Anion Gap 21 mmol/L (10-20); BUN (Urea Nitrogen) 57 mg/dL (9.8-20.1); Bilirubin, Total 0.3 mg/dL (0.2-1.2); Calc. Creatinine Clearance 0 mL/min (70-130); Calcium 6.8 mg/dL (7.8-10.44); Carbon Dioxide 16 mmol/L (23-31); Chloride 109 mmol/L (98-107); Globulin 4.6 g/dL (2.4-3.5); Glucose 184 mg/dL (80-115); Potassium 4.8 mmol/L (3.5-5.1); Protein, Total 7.8 g/dL (5.8-8.1); Sodium 141 mmol/L (136-145)
[2021-03-02 13:36] LABS: Anisocytosis SLIGHT = 6-15 cells (100X) (0-5/hpf); Hypochromia SLIGHT = 6-15 cells (100X) (0-5/hpf); MDiff Complete? YES; Microcytosis SLIGHT = 6-15 cells (100X) (0-5/hpf); Platelet Morphology Comment Appears Increased; Polychromasia MODERATE = 3-4 cells (100X) (0-2/hpf); Schistocytes SLIGHT = 2-5 cells (100X) (0-1/hpf); Target Cells MODERATE= 6-15 cells (100X) (0-1/hpf); Tear Drops SLIGHT = 2-5 cells (100X) (0-1/hpf)
[2021-03-02 13:53] LABS: CKMB 3.9 ng/mL (0-6.6)
[2021-03-02] MEDS ORDERED: cloNIDine 0.1 MG TAB ONE (14:00)
[2021-03-02] MEDS ORDERED: niCARdipine 20MG In NaCl 20 MG/200 ML BAG ONE ×2 (14:46→17:23)
[2021-03-02] MEDS ORDERED: Ondansetron PF 4 MG/2 ML Vial IVP PRN (14:46)
[2021-03-02] MEDS ORDERED: Ondansetron PF 4 MG/2 ML Vial ONE ×2 (14:54→15:00)
[2021-03-02] MEDS ORDERED: Acetaminophen 500 MG TAB ONE (14:54)
[2021-03-02] MEDS ORDERED: Furosemide 40 MG/4 ML VIAL IVP SCH (15:00)
[2021-03-02] MEDS ORDERED: HYDROmorphone 0.5 MG/0.5 ML SYRINGE SLOW IVP PRN (15:12)
[2021-03-02] MEDS ORDERED: Cyclobenzaprine 10 MG TAB PO PRN (15:13)
[2021-03-02] MEDS ORDERED: Acetaminophen/Codeine 30-300mg Tablet PO PRN (15:19)
[2021-03-02] MEDS ORDERED: traMADol HCl 50 MG TAB PO PRN (15:19)
[2021-03-02 16:54] LABS: Troponin I 0.071 ng/mL (< 0.028)
[2021-03-02] MEDS: Heparin 5,000 UNITS/ML VIAL SC SCH ×2 (18:41→21:13)
[2021-03-02 19:36] LABS: Troponin I 0.088 ng/mL (< 0.028)
[2021-03-02] MEDS: cloNIDine 0.3 MG TAB PO SCH (21:20)
[2021-03-02] MEDS: Labetalol 100 MG TAB PO SCH (21:21)
[2021-03-02] MEDS: Famotidine/PF 20 mg/2ml Vial SLOW IVP SCH (21:21)
[2021-03-02] MEDS: hydrALAZINE 25 MG TAB PO SCH (21:22)
[2021-03-02] MEDS: Atorvastatin Calcium 40 MG TAB PO SCH (21:22)
[2021-03-02] MEDS: HYDROcodone/Acetaminophen 7.5/325 mg Tablet PO SCH (21:22)
[2021-03-02] MEDS: Isosorbide Mononitrate 20 MG TAB PO SCH (21:55)
[2021-03-02] MEDS ORDERED: niCARdipine 50 MG in Sodium Chloride 0.9% 250 ML 230 ML IV SCH (22:00)
[2021-03-03] MEDS ORDERED: Furosemide 40 MG/4 ML VIAL SLOW IVP SCH (00:01)
[2021-03-03 04:02] LABS: #Basophils 0.1 thou/uL (0.0-0.2); #Eosinphils 0.2 thou/uL (0.0-0.7); #Lymphocytes 1.8 thou/uL (1.20-3.40); #Monocytes 0.8 thou/uL (0.11-0.59); #Neutrophils 3.7 thou/uL (1.40-6.50); %Basophils 0.9 % (0.0-1.0); %Eosinophils 2.6 % (0.0-10.0); %Lymphocytes 27.6 % (21.0-51.0); %Monocytes 11.9 % (0.0-10.0); %Neutrophils 57.1 % (42.0-75.0); Hemoglobin 8.8 g/dL (12.0-16.0); Mean Corpuscular HGB CONC 29.7 g/dL (32.0-36.0); Mean Corpuscular Hemoglobin 21.7 pg (27.0-31.0); Mean Platelet Volume 8.8 fL (7.4-10.4); Platelet Count 468 thou/uL (130-400); RBC Distribution Width 17.7 % (11.5-14.5); Red Blood Cell (RBC) Count 4.08 mill/uL (4.20-5.40); White Blood Cell (WBC) Count 6.4 thou/uL (4.8-10.8)
[2021-03-03 04:16] LABS: Anion Gap 15 mmol/L (10-20); BUN (Urea Nitrogen) 59 mg/dL (9.8-20.1); Calc. Creatinine Clearance 9 mL/min (70-130); Calcium 6.6 mg/dL (7.8-10.44); Carbon Dioxide 20 mmol/L (23-31); Chloride 110 mmol/L (98-107); Glucose 128 mg/dL (80-115); Potassium 4.5 mmol/L (3.5-5.1); Sodium 140 mmol/L (136-145)
[2021-03-03] MEDS: cloNIDine 0.3 MG TAB PO SCH ×3 (09:31→21:53)
[2021-03-03] MEDS: HYDROcodone/Acetaminophen 7.5/325 mg Tablet PO SCH ×2 (09:50→21:52)
[2021-03-03] MEDS: Folic Acid 1 MG TAB PO SCH (09:50)
[2021-03-03] MEDS: Famotidine/PF 20 mg/2ml Vial SLOW IVP SCH (09:50)
[2021-03-03] MEDS: Furosemide 40 MG/4 ML VIAL IVP SCH (09:52)
[2021-03-03] MEDS: Gabapentin 100 MG CAP PO SCH (09:53)
[2021-03-03] MEDS: Heparin 5,000 UNITS/ML VIAL SC SCH ×3 (09:54→21:52)
[2021-03-03] MEDS: hydrALAZINE 25 MG TAB PO SCH ×3 (09:55→21:52)
[2021-03-03] MEDS: Isosorbide Mononitrate 20 MG TAB PO SCH ×2 (09:55→21:53)
[2021-03-03] MEDS: Labetalol 100 MG TAB PO SCH ×2 (09:55→21:53)
[2021-03-03] MEDS ORDERED: Bumetanide 1 MG/4 ML VIAL IVP SCH (10:15)
[2021-03-03] MEDS: Acetaminophen/Codeine 30-300mg Tablet PO PRN (16:51)
[2021-03-03] MEDS ORDERED: cloNIDine 0.1 MG TAB PO PRN (18:04)
[2021-03-03] MEDS ORDERED: hydrALAZINE 20 MG/ML VIAL SLOW IVP PRN (18:07)
[2021-03-03] MEDS ORDERED: traMADol HCl 50 MG TAB PO PRN (18:12)
[2021-03-03] MEDS ORDERED: Famotidine 20 MG TAB PO SCH (21:00)
[2021-03-03] MEDS: Atorvastatin Calcium 40 MG TAB PO SCH (21:52)
[2021-03-04 06:49] LABS: Hemoglobin 8.2 g/dL (12.0-16.0); Mean Corpuscular HGB CONC 29.9 g/dL (32.0-36.0); Mean Corpuscular Hemoglobin 21.8 pg (27.0-31.0); Mean Corpuscular Volume 72.8 fL (78.0-98.0); Mean Platelet Volume 8.9 fL (7.4-10.4); Platelet Count 386 thou/uL (130-400); RBC Distribution Width 17.8 % (11.5-14.5); Red Blood Cell (RBC) Count 3.75 mill/uL (4.20-5.40); White Blood Cell (WBC) Count 7.9 thou/uL (4.8-10.8)
[2021-03-04 06:57] LABS: Anion Gap 17 mmol/L (10-20); BUN (Urea Nitrogen) 62 mg/dL (9.8-20.1); Calc. Creatinine Clearance 12 mL/min (70-130); Calcium 6.1 mg/dL (7.8-10.44); Carbon Dioxide 18 mmol/L (23-31); Chloride 109 mmol/L (98-107); Glucose 137 mg/dL (80-115); Potassium 4.9 mmol/L (3.5-5.1); Sodium 139 mmol/L (136-145)
[2021-03-04 07:02] LABS: Magnesium 0.8 mg/dL (1.6-2.6)
[2021-03-04] MEDS ORDERED: Magnesium 2 GM/50 ML 2 GM in Premix Bag 1 BAG IVPB SCH (07:15)
[2021-03-04 07:42] LABS: #Basophils 0.1 thou/uL (0.0-0.2); #Eosinphils 0.4 thou/uL (0.0-0.7); #Lymphocytes 2.1 thou/uL (1.20-3.40); #Neutrophils 4.3 thou/uL (1.40-6.50); %Basophils 0.7 % (0.0-1.0); %Eosinophils 5.4 % (0.0-10.0); %Lymphocytes 26.7 % (21.0-51.0); %Monocytes 12.1 % (0.0-10.0); %Neutrophils 55.1 % (42.0-75.0); Anisocytosis SLIGHT = 6-15 cells (100X) (0-5/hpf); MDiff Complete? YES; Poikilocytosis SLIGHT = 6-15 cells (100X) (0-5/hpf)
[2021-03-04] MEDS: HYDROcodone/Acetaminophen 7.5/325 mg Tablet PO SCH ×2 (09:49→21:01)
[2021-03-04] MEDS: Gabapentin 100 MG CAP PO SCH (09:52)
[2021-03-04] MEDS: Labetalol 100 MG TAB PO SCH ×2 (09:52→21:00)
[2021-03-04] MEDS: Folic Acid 1 MG TAB PO SCH (09:52)
[2021-03-04] MEDS: hydrALAZINE 25 MG TAB PO SCH ×2 (09:53→21:01)
[2021-03-04] MEDS: Isosorbide Mononitrate 20 MG TAB PO SCH ×2 (09:54→21:00)
[2021-03-04] MEDS: cloNIDine 0.3 MG TAB PO SCH ×2 (09:54→21:00)
[2021-03-04] MEDS: Heparin 5,000 UNITS/ML VIAL SC SCH (09:55)
[2021-03-04] MEDS: Furosemide 40 MG/4 ML VIAL IVP SCH (09:56)
[2021-03-04] MEDS ORDERED: Insulin Regular 300 UNITS/3 ML VIAL SC PRN (17:32)
[2021-03-04] MEDS ORDERED: Dextrose 5% in Water 1,000 ML IV PRN (17:32)
[2021-03-04] MEDS ORDERED: Dextrose 50% Abboject 50 ML SYRINGE SLOW IVP PRN (17:32)
[2021-03-04] MEDS: Atorvastatin Calcium 40 MG TAB PO SCH (21:01)
[2021-03-05 05:27] VITALS: BMI 26.5
[2021-03-05 06:36] LABS: Hemoglobin 8.1 g/dL (12.0-16.0); Mean Corpuscular HGB CONC 28.5 g/dL (32.0-36.0); Mean Corpuscular Hemoglobin 20.8 pg (27.0-31.0); Mean Corpuscular Volume 73.2 fL (78.0-98.0); Mean Platelet Volume 8.4 fL (7.4-10.4); Platelet Count 438 thou/uL (130-400); RBC Distribution Width 17.9 % (11.5-14.5); Red Blood Cell (RBC) Count 3.88 mill/uL (4.20-5.40); White Blood Cell (WBC) Count 7.6 thou/uL (4.8-10.8)
[2021-03-05 06:49] LABS: Anion Gap 18 mmol/L (10-20); BUN (Urea Nitrogen) 64 mg/dL (9.8-20.1); Calc. Creatinine Clearance 9 mL/min (70-130); Calcium 6.5 mg/dL (7.8-10.44); Carbon Dioxide 14 mmol/L (23-31); Chloride 111 mmol/L (98-107); Glucose 110 mg/dL (80-115); Magnesium 1.3 mg/dL (1.6-2.6); Potassium 4.7 mmol/L (3.5-5.1); Sodium 138 mmol/L (136-145)
[2021-03-05 07:01] LABS: #Basophils 0.1 thou/uL (0.0-0.2); #Eosinphils 0.4 thou/uL (0.0-0.7); #Monocytes 0.9 thou/uL (0.11-0.59); #Neutrophils 4.2 thou/uL (1.40-6.50); %Basophils 1.2 % (0.0-1.0); %Lymphocytes 25.8 % (21.0-51.0); %Monocytes 12.4 % (0.0-10.0); %Neutrophils 55.5 % (42.0-75.0); Hypochromia SLIGHT = 6-15 cells (100X) (0-5/hpf); MDiff Complete? YES; Microcytosis SLIGHT = 6-15 cells (100X) (0-5/hpf); Schistocytes SLIGHT = 2-5 cells (100X) (0-1/hpf); Target Cells SLIGHT = 2-5 cells (100X) (0-1/hpf)
[2021-03-05] MEDS ORDERED: Magnesium 2 GM/50 ML 2 GM in Premix Bag 1 BAG IVPB SCH (08:45)
[2021-03-05] MEDS: Labetalol 100 MG TAB PO SCH ×2 (09:02→21:46)
[2021-03-05] MEDS: hydrALAZINE 25 MG TAB PO SCH ×2 (09:02→21:47)
[2021-03-05] MEDS: Gabapentin 100 MG CAP PO SCH (09:03)
[2021-03-05] MEDS: Folic Acid 1 MG TAB PO SCH (09:03)
[2021-03-05] MEDS: Isosorbide Mononitrate 20 MG TAB PO SCH ×2 (09:04→21:50)
[2021-03-05] MEDS: HYDROcodone/Acetaminophen 7.5/325 mg Tablet PO SCH ×2 (09:05→21:50)
[2021-03-05] MEDS: cloNIDine 0.3 MG TAB PO SCH ×2 (09:05→21:50)
[2021-03-05] MEDS: Atorvastatin Calcium 40 MG TAB PO SCH (21:49)
[2021-03-06] MEDS: Acetaminophen/Codeine 30-300mg Tablet PO PRN (00:33)
[2021-03-06 04:12] VITALS: TEMP 97.9
[2021-03-06 06:26] LABS: Anion Gap 16 mmol/L (10-20); BUN (Urea Nitrogen) 61 mg/dL (9.8-20.1); Calc. Creatinine Clearance 9 mL/min (70-130); Calcium 6.9 mg/dL (7.8-10.44); Carbon Dioxide 15 mmol/L (23-31); Chloride 110 mmol/L (98-107); Glucose 170 mg/dL (80-115); Magnesium 1.6 mg/dL (1.6-2.6); Potassium 4.4 mmol/L (3.5-5.1); Sodium 137 mmol/L (136-145)
[2021-03-06 07:34] VITALS: BP 149/62
[2021-03-06] MEDS: cloNIDine 0.3 MG TAB PO SCH (10:47)
[2021-03-06] MEDS: Folic Acid 1 MG TAB PO SCH (10:47)
[2021-03-06] MEDS: Gabapentin 100 MG CAP PO SCH (10:47)
[2021-03-06] MEDS: hydrALAZINE 25 MG TAB PO SCH (10:48)
[2021-03-06] MEDS: Isosorbide Mononitrate 20 MG TAB PO SCH (10:51)
[2021-03-06] MEDS: Labetalol 100 MG TAB PO SCH (10:51)
[2021-03-06] MEDS: HYDROcodone/Acetaminophen 7.5/325 mg Tablet PO SCH (10:51)
== END 2021-03-06 10:54 | disposition home or self-care (01) | DRG 291 ==
LOC: ERS 12:08 → ERHOLD 14:15 → CCU 20:18 → T4-A 03-03 20:29
PROVIDERS: ADMIT Internal Medicine; ATTEND Internal Medicine
DX: I13.2 Hypertensive heart and chronic kidney disease with heart failure and with stage 5 chronic kidney disease, or end stage renal disease (principal); I50.33 Acute on chronic diastolic (congestive) heart failure; N18.6 End stage renal disease; I16.1 Hypertensive emergency; E87.2 Acidosis; E11.22 Type 2 diabetes mellitus with diabetic chronic kidney disease; D63.1 Anemia in chronic kidney disease; E78.5 Hyperlipidemia, unspecified; M06.9 Rheumatoid arthritis, unspecified; G89.4 Chronic pain syndrome; E83.42 Hypomagnesemia; K21.9 Gastro-esophageal reflux disease without esophagitis; I08.1 Rheumatic disorders of both mitral and tricuspid valves; Z53.20 Procedure and treatment not carried out because of patient's decision for unspecified reasons; Z88.5 Allergy status to narcotic agent; Z88.2 Allergy status to sulfonamides; Z88.8 Allergy status to other drugs, medicaments and biological substances; Z90.710 Acquired absence of both cervix and uterus; Z98.41 Cataract extraction status, right eye; Z79.899 Other long term (current) drug therapy; Z79.84 Long term (current) use of oral hypoglycemic drugs
CPT/HCPCS: 36415; 36416; 71045; 80048; 80053; 82553; 82728; 83540; 83550; 83735; 83880; 84484; 85025; 93005; 93306; 93923; 96365; 96366; 96375; 96376; J0360; J1644; J1940; J2270; J2405; J3475; J3490; J7050; S0028

== ENCOUNTER 2021-03-10 11:45 | Inpatient (IN) | payer MEDICARE ==
[2021-03-10 12:41] LABS: #Eosinphils 0.1 thou/uL (0.0-0.7); #Lymphocytes 0.9 thou/uL (1.20-3.40); #Monocytes 0.5 thou/uL (0.11-0.59); #Neutrophils 4.6 thou/uL (1.40-6.50); %Basophils 0.7 % (0.0-1.0); %Lymphocytes 14.8 % (21.0-51.0); %Monocytes 7.4 % (0.0-10.0); Hemoglobin 10.4 g/dL (12.0-16.0); Mean Corpuscular HGB CONC 28.8 g/dL (32.0-36.0); Mean Corpuscular Hemoglobin 21.8 pg (27.0-31.0); Mean Corpuscular Volume 75.6 fL (78.0-98.0); Platelet Count 419 thou/uL (130-400); RBC Distribution Width 20.7 % (11.5-14.5); White Blood Cell (WBC) Count 6.1 thou/uL (4.8-10.8)
[2021-03-10 14:28] LABS: ALT (SGPT) Less than 7 U/L (8-55); AST (SGOT) 18 U/L (5-34); Albumin 2.7 g/dL (3.4-4.8); Alkaline Phosphatase 53 U/L (40-110); Anion Gap 16 mmol/L (10-20); BUN (Urea Nitrogen) 56 mg/dL (9.8-20.1); Bilirubin, Total 0.3 mg/dL (0.2-1.2); Calc. Creatinine Clearance 0 mL/min (70-130); Carbon Dioxide 17 mmol/L (23-31); Chloride 108 mmol/L (98-107); Globulin 4.2 g/dL (2.4-3.5); Glucose 173 mg/dL (80-115); Potassium 5.3 mmol/L (3.5-5.1); Protein, Total 6.9 g/dL (5.8-8.1); Sodium 136 mmol/L (136-145)
[2021-03-10] MEDS ORDERED: Furosemide 100 MG/10 ML VIAL ONE (14:37)
[2021-03-10] MEDS ORDERED: Nitroglycerin 2% Ointment 1 INCH/1 GM Packet ONE (14:37)
[2021-03-10 16:00] LABS: SARS-CoV-2 NAA Rapid Test Not Detected (NotDetected)
[2021-03-10 17:09] LABS: Troponin I 0.046 ng/mL (< 0.028)
[2021-03-10] MEDS ORDERED: Labetalol HCl 100 MG/20 ML VIAL SLOW IVP PRN ×4 (18:47→21:16)
[2021-03-10 19:31] LABS: Troponin I 0.038 ng/mL (< 0.028)
[2021-03-10] MEDS ORDERED: Dextrose 5% in Water 1,000 ML IV PRN (21:16)
[2021-03-10] MEDS ORDERED: Ondansetron PF 4 MG/2 ML Vial IVP PRN (21:16)
[2021-03-10] MEDS ORDERED: Dextrose 50% Abboject 50 ML SYRINGE SLOW IVP PRN (21:16)
[2021-03-10] MEDS ORDERED: diphenhydrAMINE 25 MG CAP PO PRN (21:16)
[2021-03-10] MEDS ORDERED: HumaLOG 300 UNITS/3 ML VIAL SC PRN ×2 (21:16)
[2021-03-10] MEDS ORDERED: Ondansetron ODT 4 MG TAB PO PRN (21:16)
[2021-03-10] MEDS ORDERED: traMADol HCl 50 MG TAB PO PRN (21:16)
[2021-03-10] MEDS ORDERED: niCARdipine 25 MG in Sodium Chloride 0.9% 250 ML 240 ML IVPB SCH ×2 (21:45→23:22)
[2021-03-10 22:20] LABS: Anion Gap 22 mmol/L (10-20); BUN (Urea Nitrogen) 40 mg/dL (9.8-20.1); Calc. Creatinine Clearance 14 mL/min (70-130); Calcium 8.2 mg/dL (7.8-10.44); Carbon Dioxide 17 mmol/L (23-31); Chloride 106 mmol/L (98-107); Glucose 126 mg/dL (80-115); Potassium 4.5 mmol/L (3.5-5.1); Sodium 140 mmol/L (136-145)
[2021-03-10] MEDS: hydrALAZINE 25 MG TAB PO SCH (22:55)
[2021-03-10] MEDS: Atorvastatin Calcium 40 MG TAB PO SCH (22:55)
[2021-03-10] MEDS: cloNIDine 0.3 MG TAB PO SCH (22:55)
[2021-03-10] MEDS: HYDROcodone/Acetaminophen 7.5/325 mg Tablet PO SCH (22:56)
[2021-03-10 23:38] LABS: Hep B Surf Ag Non-Reactive S/CO (NonReactive)
[2021-03-10 23:43] LABS: HBSAB Concentration 54.73 mIU/mL; Hep B Core Total Ab Reactive (NonReactive); Hep B Core Total Index 1.76 S/CO (0-0.79); Hep B Surf AB Reactive (NonReactive); Hep C IgG Ab Reflex HepC Qnt (NonReactive); Hep C Index 7.05 S/CO (0-0.79)
[2021-03-11] MEDS: Famotidine 20 MG TAB PO SCH ×2 (00:05→21:02)
[2021-03-11] MEDS: Isosorbide Mononitrate 20 MG TAB PO SCH ×3 (00:05→21:05)
[2021-03-11 00:23] VITALS: BMI 26.1
[2021-03-11] MEDS: Acetaminophen/Codeine 30-300mg Tablet PO PRN ×2 (03:22→17:56)
[2021-03-11 04:14] LABS: ALT (SGPT) Less than 7 U/L (8-55); AST (SGOT) 8 U/L (5-34); Albumin 2.5 g/dL (3.4-4.8); Alkaline Phosphatase 50 U/L (40-110); Anion Gap 19 mmol/L (10-20); BUN (Urea Nitrogen) 42 mg/dL (9.8-20.1); Bilirubin, Total 0.3 mg/dL (0.2-1.2); Calc. Creatinine Clearance 12 mL/min (70-130); Calcium 7.9 mg/dL (7.8-10.44); Carbon Dioxide 15 mmol/L (23-31); Chloride 106 mmol/L (98-107); Globulin 3.6 g/dL (2.4-3.5); Glucose 117 mg/dL (80-115); Phosphorus 4.6 mg/dL (2.3-4.7); Potassium 4.3 mmol/L (3.5-5.1); Protein, Total 6.1 g/dL (5.8-8.1); Sodium 136 mmol/L (136-145)
[2021-03-11 04:32] LABS: Mean Corpuscular HGB CONC 28.9 g/dL (32.0-36.0); Mean Corpuscular Hemoglobin 21.6 pg (27.0-31.0); Mean Corpuscular Volume 74.7 fL (78.0-98.0); Mean Platelet Volume 9.9 fL (7.4-10.4); Platelet Count 319 thou/uL (130-400); RBC Distribution Width 20.3 % (11.5-14.5); Red Blood Cell (RBC) Count 4.62 mill/uL (4.20-5.40); White Blood Cell (WBC) Count 6.6 thou/uL (4.8-10.8)
[2021-03-11 04:56] LABS: Eosinophils 4 % (0-10); Lymphocytes 16 % (21-51); MDiff Complete? YES; Monocytes 4 % (0-10); Neutrophil 76 % (42-75); Platelet Morphology Comment Appears Adequate
[2021-03-11] MEDS: hydrALAZINE 25 MG TAB PO SCH ×2 (08:03→21:00)
[2021-03-11] MEDS: cloNIDine 0.3 MG TAB PO SCH ×2 (08:04→21:02)
[2021-03-11] MEDS: HYDROcodone/Acetaminophen 7.5/325 mg Tablet PO SCH ×2 (08:05→21:03)
[2021-03-11] MEDS: Folic Acid 1 MG TAB PO SCH (08:05)
[2021-03-11] MEDS: Cyanocobalamin (Vitamin B-12) 1,000 MCG TAB PO SCH (08:05)
[2021-03-11] MEDS: Magnesium Oxide 400 MG TAB PO SCH (08:05)
[2021-03-11] MEDS: Alogliptin 25 MG TAB PO SCH (10:10)
[2021-03-11] MEDS: Sodium Bicarbonate Tab 325 MG TAB PO SCH ×2 (14:19→21:01)
[2021-03-11] MEDS: Atorvastatin Calcium 40 MG TAB PO SCH (21:05)
[2021-03-12 05:51] LABS: Band 1 % (5-11); Hemoglobin 8.9 g/dL (12.0-16.0); Hypochromia SLIGHT = 6-15 cells (100X) (0-5/hpf); Lymphocytes 22 % (21-51); MDiff Complete? YES; Mean Corpuscular HGB CONC 29.5 g/dL (32.0-36.0); Mean Corpuscular Hemoglobin 22.1 pg (27.0-31.0); Mean Platelet Volume 11.4 fL (7.4-10.4); Microcytosis SLIGHT = 6-15 cells (100X) (0-5/hpf); Monocytes 19 % (0-10); Neutrophil 58 % (42-75); Platelet Count 182 thou/uL (130-400); Platelet Morphology Comment Appears Adequate; RBC Distribution Width 20.3 % (11.5-14.5); Red Blood Cell (RBC) Count 4.03 mill/uL (4.20-5.40); White Blood Cell (WBC) Count 6.8 thou/uL (4.8-10.8)
[2021-03-12 05:56] LABS: Anion Gap 12 mmol/L (10-20); BUN (Urea Nitrogen) 35 mg/dL (9.8-20.1); Calc. Creatinine Clearance 14 mL/min (70-130); Calcium 7.5 mg/dL (7.8-10.44); Carbon Dioxide 24 mmol/L (23-31); Chloride 105 mmol/L (98-107); Glucose 123 mg/dL (80-115); Phosphorus 4.2 mg/dL (2.3-4.7); Potassium 4.1 mmol/L (3.5-5.1); Sodium 137 mmol/L (136-145)
[2021-03-12] MEDS: Alogliptin 25 MG TAB PO SCH (09:42)
[2021-03-12] MEDS: cloNIDine 0.3 MG TAB PO SCH ×2 (09:42→21:23)
[2021-03-12] MEDS: HYDROcodone/Acetaminophen 7.5/325 mg Tablet PO SCH ×2 (09:42→21:24)
[2021-03-12] MEDS: hydrALAZINE 25 MG TAB PO SCH ×2 (09:42→21:23)
[2021-03-12] MEDS: Folic Acid 1 MG TAB PO SCH (09:42)
[2021-03-12] MEDS: Cyanocobalamin (Vitamin B-12) 1,000 MCG TAB PO SCH (09:42)
[2021-03-12] MEDS: Magnesium Oxide 400 MG TAB PO SCH (09:43)
[2021-03-12] MEDS: Isosorbide Mononitrate 20 MG TAB PO SCH ×2 (09:43→21:33)
[2021-03-12] MEDS: Sodium Bicarbonate Tab 325 MG TAB PO SCH ×3 (09:44→21:35)
[2021-03-12] MEDS: Acetaminophen/Codeine 30-300mg Tablet PO PRN (18:21)
[2021-03-12] MEDS: Atorvastatin Calcium 40 MG TAB PO SCH (21:23)
[2021-03-12] MEDS: Famotidine 20 MG TAB PO SCH (21:24)
[2021-03-13] MEDS ORDERED: Acetaminophen/Codeine 30-300mg Tablet PO SCH (00:30)
[2021-03-13] MEDS ORDERED: HYDROcodone/Acetaminophen 7.5/325 mg Tablet PO SCH (00:30)
[2021-03-13 08:10] LABS: Anion Gap 17 mmol/L (10-20); BUN (Urea Nitrogen) 24 mg/dL (9.8-20.1); Calc. Creatinine Clearance 16 mL/min (70-130); Calcium 7.6 mg/dL (7.8-10.44); Carbon Dioxide 23 mmol/L (23-31); Chloride 104 mmol/L (98-107); Glucose 129 mg/dL (80-115); Potassium 4.6 mmol/L (3.5-5.1); Sodium 139 mmol/L (136-145)
[2021-03-13] MEDS: Alogliptin 25 MG TAB PO SCH (08:35)
[2021-03-13] MEDS: hydrALAZINE 25 MG TAB PO SCH ×2 (08:35→19:56)
[2021-03-13] MEDS: Isosorbide Mononitrate 20 MG TAB PO SCH ×2 (08:35→20:01)
[2021-03-13] MEDS: Cyanocobalamin (Vitamin B-12) 1,000 MCG TAB PO SCH (08:36)
[2021-03-13] MEDS: cloNIDine 0.3 MG TAB PO SCH ×2 (08:36→19:57)
[2021-03-13] MEDS: Folic Acid 1 MG TAB PO SCH (08:36)
[2021-03-13] MEDS: Magnesium Oxide 400 MG TAB PO SCH (08:37)
[2021-03-13] MEDS: Losartan 25 MG TAB PO SCH ×2 (08:37→10:18)
[2021-03-13] MEDS: Sodium Bicarbonate Tab 325 MG TAB PO SCH ×3 (08:37→19:57)
[2021-03-13 08:41] LABS: Hemoglobin 9.3 g/dL (12.0-16.0); Platelet Count 119 thou/uL (130-400)
[2021-03-13] MEDS: HYDROcodone/Acetaminophen 7.5/325 mg Tablet PO SCH ×2 (10:20→20:11)
[2021-03-13] MEDS ORDERED: Tuberculin PPD 0.1 ML VIAL I-DERMAL SCH (10:45)
[2021-03-13] MEDS: hydrALAZINE 20 MG/ML VIAL SLOW IVP PRN ×3 (11:39→20:06)
[2021-03-13] MEDS: Gabapentin 300 MG CAP PO SCH ×2 (14:52→20:00)
[2021-03-13] MEDS: Atorvastatin Calcium 40 MG TAB PO SCH (19:56)
[2021-03-13] MEDS: Famotidine 20 MG TAB PO SCH (19:58)
[2021-03-13] MEDS: Labetalol 100 MG TAB PO SCH (20:03)
[2021-03-13] MEDS ORDERED: Non-Formulary Item 1 EACH (Labetalol Hcl [Labetalol Hcl] 200 MG Tablet) PO SCH (21:00)
[2021-03-14] MEDS: Acetaminophen/Codeine 30-300mg Tablet PO PRN (05:55)
[2021-03-14] MEDS: hydrALAZINE 20 MG/ML VIAL SLOW IVP PRN (08:07)
[2021-03-14 08:36] LABS: Anion Gap 14 mmol/L (10-20); BUN (Urea Nitrogen) 29 mg/dL (9.8-20.1); Calc. Creatinine Clearance 16 mL/min (70-130); Calcium 7.4 mg/dL (7.8-10.44); Carbon Dioxide 25 mmol/L (23-31); Chloride 103 mmol/L (98-107); Glucose 144 mg/dL (80-115); Potassium 4.1 mmol/L (3.5-5.1); Sodium 138 mmol/L (136-145)
[2021-03-14 08:45] LABS: Hemoglobin 8.7 g/dL (12.0-16.0); Platelet Count 111 thou/uL (130-400)
[2021-03-14] MEDS: HYDROcodone/Acetaminophen 7.5/325 mg Tablet PO SCH (08:51)
[2021-03-14] MEDS ORDERED: Non-Formulary Item 1 EACH (Cholecalciferol (Vitamin D3) [Vitamin D3] 1,000 UNIT Capsule) PO SCH (09:00)
[2021-03-14] MEDS ORDERED: Cholecalciferol 1,000 UNITS (25 MCG) TAB PO SCH (09:00)
[2021-03-14 10:14] LABS: Hep C PCR-Quant HCV Not Detected IU/mL (.)
[2021-03-14 12:10] VITALS: TEMP 98.1
[2021-03-14] MEDS: Losartan 25 MG TAB PO SCH (12:50)
[2021-03-14] MEDS: cloNIDine 0.3 MG TAB PO SCH (12:52)
[2021-03-14] MEDS: Alogliptin 25 MG TAB PO SCH (12:52)
[2021-03-14] MEDS: Cyanocobalamin (Vitamin B-12) 1,000 MCG TAB PO SCH (12:53)
[2021-03-14] MEDS: Folic Acid 1 MG TAB PO SCH (12:53)
[2021-03-14] MEDS: Isosorbide Mononitrate 20 MG TAB PO SCH (12:54)
[2021-03-14] MEDS: hydrALAZINE 25 MG TAB PO SCH (12:54)
[2021-03-14] MEDS: Gabapentin 300 MG CAP PO SCH ×2 (12:54→14:06)
[2021-03-14] MEDS: Labetalol 100 MG TAB PO SCH (12:54)
[2021-03-14] MEDS: Magnesium Oxide 400 MG TAB PO SCH (12:54)
[2021-03-14] MEDS: Sodium Bicarbonate Tab 325 MG TAB PO SCH ×2 (12:55→14:05)
[2021-03-14 14:03] VITALS: BP 211/69
[2021-03-15] MEDS ORDERED: Losartan 25 MG TAB PO SCH (09:00)
== END 2021-03-14 15:32 | disposition home or self-care (01) | DRG 682 ==
LOC: ERS 11:45 → 2NO 15:12 → CCU 22:44 → 2SE 03-12 00:48
PROVIDERS: ADMIT Family Medicine; ATTEND Family Medicine
PROC: 5A1D90Z Performance of Urinary Filtration, Continuous, Greater than 18 hours Per Day (ICD-10-PCS; principal; 2021-03-10)
DX: I12.0 Hypertensive chronic kidney disease with stage 5 chronic kidney disease or end stage renal disease (principal); N18.6 End stage renal disease; E87.2 Acidosis; E87.70 Fluid overload, unspecified; I16.0 Hypertensive urgency; E11.22 Type 2 diabetes mellitus with diabetic chronic kidney disease; D63.1 Anemia in chronic kidney disease; Z20.822 Contact with and (suspected) exposure to COVID-19; K21.9 Gastro-esophageal reflux disease without esophagitis; M06.9 Rheumatoid arthritis, unspecified; E87.5 Hyperkalemia; I44.30 Unspecified atrioventricular block; Z90.710 Acquired absence of both cervix and uterus; Z88.2 Allergy status to sulfonamides; Z88.5 Allergy status to narcotic agent; Z88.8 Allergy status to other drugs, medicaments and biological substances; Z79.899 Other long term (current) drug therapy; Z99.2 Dependence on renal dialysis
CPT/HCPCS: 0240U; 36415; 71045; 80048; 80053; 83880; 84100; 84484; 85014; 85018; 85025; 85049; 86580; 86704; 86706; 86803; 87340; 87522; 93005; 96374; J0360; J1940; J2405

== ENCOUNTER 2021-07-08 12:41 | Inpatient (IN) | payer MEDICARE ==
[~2021-07-08 12:41] MED LIST: Iopamidol-370 76% 500 ML 1 ML ONE
[2021-07-08 13:34] LABS: #Eosinphils 0.1 thou/uL (0.0-0.7); #Lymphocytes 1.2 thou/uL (1.20-3.40); #Monocytes 0.9 thou/uL (0.11-0.59); #Neutrophils 5.3 thou/uL (1.40-6.50); %Basophils 0.3 % (0.0-1.0); %Lymphocytes 15.8 % (21.0-51.0); %Monocytes 11.6 % (0.0-10.0); %Neutrophils 71.4 % (42.0-75.0); Mean Corpuscular HGB CONC 31.7 g/dL (32.0-36.0); Mean Corpuscular Hemoglobin 24.4 pg (27.0-31.0); Mean Platelet Volume 8.1 fL (7.4-10.4); Platelet Count 336 thou/uL (130-400); RBC Distribution Width 15.3 % (11.5-14.5); White Blood Cell (WBC) Count 7.4 thou/uL (4.8-10.8)
[2021-07-08 13:55] LABS: ALT (SGPT) Less than 7 U/L (8-55); AST (SGOT) 11 U/L (5-34); Albumin 3.4 g/dL (3.4-4.8); Alkaline Phosphatase 95 U/L (40-110); Anion Gap 19 mmol/L (10-20); BUN (Urea Nitrogen) 56 mg/dL (9.8-20.1); Bilirubin, Total 0.4 mg/dL (0.2-1.2); Calc. Creatinine Clearance 0 mL/min (70-130); Calcium 7.9 mg/dL (7.8-10.44); Carbon Dioxide 24 mmol/L (23-31); Chloride 97 mmol/L (98-107); Glucose 299 mg/dL (80-115); Lipase 612 U/L (8-78); Potassium 4.8 mmol/L (3.5-5.1); Protein, Total 7.4 g/dL (5.8-8.1); Sodium 135 mmol/L (136-145)
[2021-07-08 14:17] LABS: CKMB 1.7 ng/mL (0-6.6)
[2021-07-08] MEDS ORDERED: Nitroglycerin 0.4 MG TAB 1 EACH ONE (14:30)
[2021-07-08] MEDS ORDERED: Aspirin Chewable 81 MG TAB ONE (14:30)
[2021-07-08] MEDS ORDERED: Morphine 4 MG/ML VIAL ONE (14:30)
[2021-07-08] MEDS ORDERED: hydrALAZINE 20 MG/ML VIAL SLOW IVP SCH (16:19)
[2021-07-08] MEDS ORDERED: hydrALAZINE 20 MG/ML VIAL ONE (16:24)
[2021-07-08] MEDS ORDERED: Sodium Chloride 0.9% 500 ML IV SCH (16:30)
[2021-07-08] MEDS ORDERED: Amlodipine 5 MG TAB PO SCH (16:30)
[2021-07-08] MEDS ORDERED: Acetaminophen 650 MG Suppository PR PRN (16:35)
[2021-07-08] MEDS ORDERED: Ondansetron ODT 4 MG TAB PO PRN (16:35)
[2021-07-08] MEDS ORDERED: Lactated Ringer's 1,000 ML IV SCH ×2 (16:45→17:00)
[2021-07-08] MEDS ORDERED: Lactated Ringer's 500 ML IV SCH ×2 (16:46→17:25)
[2021-07-08] MEDS ORDERED: hydrALAZINE 20 MG/ML VIAL SLOW IVP PRN (16:50)
[2021-07-08] MEDS ORDERED: Dextrose 50% Abboject 50 ML SYRINGE SLOW IVP PRN (17:07)
[2021-07-08] MEDS ORDERED: Insulin Regular 300 UNITS/3 ML VIAL SC PRN ×2 (17:07)
[2021-07-08] MEDS ORDERED: Dextrose 5% in Water 1,000 ML IV PRN (17:07)
[2021-07-08 17:48] LABS: Alcohol Less than 10 mg/dL (Less than 10); Magnesium 1.3 mg/dL (1.6-2.6)
[2021-07-08] MEDS: Morphine 4 MG/ML VIAL SLOW IVP PRN (18:47)
[2021-07-08 19:37] LABS: Troponin I 0.035 ng/mL (< 0.028)
[2021-07-08] MEDS ORDERED: Magnesium 2 GM/50 ML 2 GM in Premix Bag 1 BAG IVPB SCH (21:00)
[2021-07-08] MEDS: Atorvastatin Calcium 40 MG TAB PO SCH (21:05)
[2021-07-08] MEDS: Ondansetron PF 4 MG/2 ML Vial IVP PRN (21:05)
[2021-07-08] MEDS: diphenhydrAMINE 25 MG CAP PO PRN (21:09)
[2021-07-08 23:55] LABS: SARS-CoV-2 PCR by NAA Not Detected (NotDetected)
[2021-07-09] MEDS: diphenhydrAMINE 25 MG CAP PO PRN ×3 (03:39→22:08)
[2021-07-09] MEDS ORDERED: cloNIDine 0.3 MG TAB PO SCH (04:15)
[2021-07-09] MEDS: Labetalol HCl 100 MG/20 ML VIAL SLOW IVP PRN (06:04)
[2021-07-09 06:52] LABS: #Lymphocytes 1.2 thou/uL (1.20-3.40); #Monocytes 0.9 thou/uL (0.11-0.59); #Neutrophils 6.6 thou/uL (1.40-6.50); %Basophils 0.4 % (0.0-1.0); %Eosinophils 0.5 % (0.0-10.0); %Lymphocytes 13.3 % (21.0-51.0); %Monocytes 9.8 % (0.0-10.0); Hemoglobin 13.2 g/dL (12.0-16.0); Mean Corpuscular HGB CONC 32.3 g/dL (32.0-36.0); Mean Corpuscular Hemoglobin 24.6 pg (27.0-31.0); Platelet Count 407 thou/uL (130-400); RBC Distribution Width 15.5 % (11.5-14.5); Red Blood Cell (RBC) Count 5.39 mill/uL (4.20-5.40); White Blood Cell (WBC) Count 8.7 thou/uL (4.8-10.8)
[2021-07-09 07:11] LABS: ALT (SGPT) Less than 7 U/L (8-55); AST (SGOT) 11 U/L (5-34); Albumin 3.6 g/dL (3.4-4.8); Alkaline Phosphatase 77 U/L (40-110); Anion Gap 24 mmol/L (10-20); BUN (Urea Nitrogen) 55 mg/dL (9.8-20.1); Bilirubin, Total 0.5 mg/dL (0.2-1.2); Calc. Creatinine Clearance 0 mL/min (70-130); Calcium 8.8 mg/dL (7.8-10.44); Carbon Dioxide 26 mmol/L (23-31); Chloride 94 mmol/L (98-107); Glucose 206 mg/dL (80-115); Potassium 4.8 mmol/L (3.5-5.1); Protein, Total 7.6 g/dL (5.8-8.1); Sodium 139 mmol/L (136-145)
[2021-07-09] MEDS: hydrALAZINE 25 MG TAB PO SCH ×3 (07:58→20:09)
[2021-07-09] MEDS: cloNIDine 0.3 MG TAB PO SCH ×3 (07:59→20:10)
[2021-07-09] MEDS: Morphine 4 MG/ML VIAL SLOW IVP PRN ×2 (08:56→21:06)
[2021-07-09] MEDS: Lactated Ringer's 1,000 ML IV SCH (16:11)
[2021-07-09] MEDS: Ondansetron PF 4 MG/2 ML Vial IVP PRN (16:22)
[2021-07-09] MEDS: Atorvastatin Calcium 40 MG TAB PO SCH (20:10)
[2021-07-10] MEDS: Labetalol HCl 100 MG/20 ML VIAL SLOW IVP PRN ×3 (03:01→23:28)
[2021-07-10] MEDS: Lactated Ringer's 1,000 ML IV SCH ×2 (05:19→23:27)
[2021-07-10 06:13] LABS: #Basophils 0.1 thou/uL (0.0-0.2); #Eosinphils 0.2 thou/uL (0.0-0.7); #Lymphocytes 1.7 thou/uL (1.20-3.40); #Monocytes 1.1 thou/uL (0.11-0.59); %Basophils 0.7 % (0.0-1.0); %Eosinophils 2.5 % (0.0-10.0); %Lymphocytes 21.3 % (21.0-51.0); %Monocytes 13.8 % (0.0-10.0); %Neutrophils 61.8 % (42.0-75.0); Hemoglobin 10.4 g/dL (12.0-16.0); Mean Corpuscular HGB CONC 30.8 g/dL (32.0-36.0); Mean Corpuscular Hemoglobin 23.6 pg (27.0-31.0); Mean Corpuscular Volume 76.6 fL (78.0-98.0); Mean Platelet Volume 7.3 fL (7.4-10.4); Platelet Count 323 thou/uL (130-400); Red Blood Cell (RBC) Count 4.41 mill/uL (4.20-5.40); White Blood Cell (WBC) Count 8.1 thou/uL (4.8-10.8)
[2021-07-10 06:21] LABS: ALT (SGPT) Less than 7 U/L (8-55); AST (SGOT) 10 U/L (5-34); Albumin 2.9 g/dL (3.4-4.8); Alkaline Phosphatase 59 U/L (40-110); Anion Gap 15 mmol/L (10-20); BUN (Urea Nitrogen) 27 mg/dL (9.8-20.1); Bilirubin, Total 0.4 mg/dL (0.2-1.2); Calc. Creatinine Clearance 0 mL/min (70-130); Calcium 8.1 mg/dL (7.8-10.44); Carbon Dioxide 26 mmol/L (23-31); Chloride 102 mmol/L (98-107); Globulin 3.1 g/dL (2.4-3.5); Glucose 158 mg/dL (80-115); Potassium 4.5 mmol/L (3.5-5.1); Sodium 138 mmol/L (136-145)
[2021-07-10] MEDS: hydrALAZINE 25 MG TAB PO SCH ×3 (08:06→20:38)
[2021-07-10] MEDS: cloNIDine 0.3 MG TAB PO SCH ×3 (08:08→23:28)
[2021-07-10] MEDS ORDERED: cloNIDine 0.1 MG TAB PO PRN (10:21)
[2021-07-10] MEDS ORDERED: Metoprolol Tartrate 25 MG TAB PO SCH (10:30)
[2021-07-10] MEDS: Morphine 4 MG/ML VIAL SLOW IVP PRN ×3 (11:10→23:27)
[2021-07-10] MEDS: diphenhydrAMINE 25 MG CAP PO PRN ×3 (11:11→23:28)
[2021-07-10] MEDS ORDERED: Insulin Regular 300 UNITS/3 ML VIAL SC PRN (16:03)
[2021-07-10] MEDS: Senokot S 8.6-50 MG TAB PO SCH (20:38)
[2021-07-10] MEDS: Atorvastatin Calcium 40 MG TAB PO SCH (20:38)
[2021-07-10] MEDS: Metoprolol Tartrate 25 MG TAB PO SCH (20:38)
[2021-07-10] MEDS: Heparin 5,000 UNITS/ML VIAL SC SCH (20:39)
[2021-07-11 05:57] LABS: ALT (SGPT) Less than 7 U/L (8-55); AST (SGOT) 15 U/L (5-34); Albumin 2.8 g/dL (3.4-4.8); Alkaline Phosphatase 56 U/L (40-110); Anion Gap 18 mmol/L (10-20); BUN (Urea Nitrogen) 31 mg/dL (9.8-20.1); Bilirubin, Total 0.5 mg/dL (0.2-1.2); Calc. Creatinine Clearance 0 mL/min (70-130); Calcium 8.2 mg/dL (7.8-10.44); Carbon Dioxide 20 mmol/L (23-31); Chloride 100 mmol/L (98-107); Globulin 3.1 g/dL (2.4-3.5); Glucose 138 mg/dL (80-115); Lipase 104 U/L (8-78); Potassium 5.4 mmol/L (3.5-5.1); Protein, Total 5.9 g/dL (5.8-8.1); Sodium 133 mmol/L (136-145)
[2021-07-11] MEDS: cloNIDine 0.3 MG TAB PO SCH ×3 (06:10→21:08)
[2021-07-11] MEDS: Senokot S 8.6-50 MG TAB PO SCH ×2 (12:13→21:08)
[2021-07-11] MEDS: hydrALAZINE 25 MG TAB PO SCH ×3 (12:14→21:07)
[2021-07-11] MEDS: Metoprolol Tartrate 25 MG TAB PO SCH ×2 (12:15→21:09)
[2021-07-11] MEDS: diphenhydrAMINE 25 MG CAP PO PRN ×2 (12:15→22:02)
[2021-07-11] MEDS: Heparin 5,000 UNITS/ML VIAL SC SCH ×2 (12:15→21:06)
[2021-07-11] MEDS: Morphine 4 MG/ML VIAL SLOW IVP PRN (12:16)
[2021-07-11] MEDS: Lactated Ringer's 1,000 ML IV SCH (18:00)
[2021-07-11] MEDS: Acetaminophen 325 MG TAB PO PRN (18:26)
[2021-07-11] MEDS: Atorvastatin Calcium 40 MG TAB PO SCH (21:07)
[2021-07-11 22:43] LABS: #Basophils 0.1 thou/uL (0.0-0.2); #Eosinphils 0.2 thou/uL (0.0-0.7); #Lymphocytes 1.3 thou/uL (1.20-3.40); #Monocytes 0.9 thou/uL (0.11-0.59); #Neutrophils 4.9 thou/uL (1.40-6.50); %Basophils 0.9 % (0.0-1.0); %Eosinophils 2.1 % (0.0-10.0); %Lymphocytes 17.4 % (21.0-51.0); %Monocytes 12.4 % (0.0-10.0); %Neutrophils 67.2 % (42.0-75.0); Hemoglobin 10.7 g/dL (12.0-16.0); Mean Corpuscular Hemoglobin 24.1 pg (27.0-31.0); Mean Corpuscular Volume 77.9 fL (78.0-98.0); Mean Platelet Volume 7.8 fL (7.4-10.4); Platelet Count 333 thou/uL (130-400); RBC Distribution Width 14.7 % (11.5-14.5); Red Blood Cell (RBC) Count 4.44 mill/uL (4.20-5.40); White Blood Cell (WBC) Count 7.3 thou/uL (4.8-10.8)
[2021-07-12] MEDS: diphenhydrAMINE 25 MG CAP PO PRN ×2 (04:20→12:38)
[2021-07-12 05:17] LABS: Hemoglobin 10.2 g/dL (12.0-16.0); Mean Corpuscular HGB CONC 29.9 g/dL (32.0-36.0); Mean Corpuscular Hemoglobin 23.1 pg (27.0-31.0); Mean Corpuscular Volume 77.2 fL (78.0-98.0); Mean Platelet Volume 7.5 fL (7.4-10.4); Platelet Count 339 thou/uL (130-400); RBC Distribution Width 14.5 % (11.5-14.5); White Blood Cell (WBC) Count 6.5 thou/uL (4.8-10.8)
[2021-07-12 05:23] LABS: Anion Gap 16 mmol/L (10-20); BUN (Urea Nitrogen) 21 mg/dL (9.8-20.1); Calc. Creatinine Clearance 0 mL/min (70-130); Carbon Dioxide 26 mmol/L (23-31); Chloride 99 mmol/L (98-107); Glucose 120 mg/dL (80-115); Potassium 4.6 mmol/L (3.5-5.1); Sodium 136 mmol/L (136-145)
[2021-07-12] MEDS: cloNIDine 0.3 MG TAB PO SCH ×2 (05:33→15:22)
[2021-07-12] MEDS: Acetaminophen 325 MG TAB PO PRN ×2 (05:33→12:38)
[2021-07-12 05:45] LABS: Band 2 % (5-11); Eosinophils 5 % (0-10); Lymphocytes 34 % (21-51); MDiff Complete? YES; Monocytes 8 % (0-10); Neutrophil 51 % (42-75); Platelet Morphology Comment Appears Adequate
[2021-07-12] MEDS: Senokot S 8.6-50 MG TAB PO SCH (09:25)
[2021-07-12] MEDS: hydrALAZINE 25 MG TAB PO SCH ×2 (09:25→15:45)
[2021-07-12] MEDS: Metoprolol Tartrate 25 MG TAB PO SCH (09:26)
[2021-07-12] MEDS: Heparin 5,000 UNITS/ML VIAL SC SCH (09:26)
[2021-07-12] MEDS: Labetalol HCl 100 MG/20 ML VIAL SLOW IVP PRN (12:38)
[2021-07-12 13:44] VITALS: BMI 24.7
[2021-07-12 15:09] VITALS: TEMP 97.5
[2021-07-12] MEDS ORDERED: Labetalol HCl 100 MG/20 ML VIAL SLOW IVP SCH (15:30)
[2021-07-12 16:35] VITALS: BP 155/88
== END 2021-07-12 16:30 | disposition home or self-care (01) | DRG 438 ==
LOC: ERS 12:41 → 2SW 15:51 → OBSVTOIN 17:23
PROVIDERS: ADMIT Family Medicine; ATTEND Internal Medicine
PROC: 5A1D70Z Performance of Urinary Filtration, Intermittent, Less than 6 Hours Per Day (ICD-10-PCS; principal; 2021-07-09)
DX: K85.00 Idiopathic acute pancreatitis without necrosis or infection (principal); N18.6 End stage renal disease; I13.2 Hypertensive heart and chronic kidney disease with heart failure and with stage 5 chronic kidney disease, or end stage renal disease; I50.32 Chronic diastolic (congestive) heart failure; Z20.822 Contact with and (suspected) exposure to COVID-19; I16.0 Hypertensive urgency; E11.22 Type 2 diabetes mellitus with diabetic chronic kidney disease; E78.5 Hyperlipidemia, unspecified; F10.10 Alcohol abuse, uncomplicated; D63.1 Anemia in chronic kidney disease; E11.65 Type 2 diabetes mellitus with hyperglycemia; E83.42 Hypomagnesemia; K21.9 Gastro-esophageal reflux disease without esophagitis; Z88.2 Allergy status to sulfonamides; Z88.5 Allergy status to narcotic agent; Z88.8 Allergy status to other drugs, medicaments and biological substances; Z99.2 Dependence on renal dialysis; Z90.710 Acquired absence of both cervix and uterus; Z79.899 Other long term (current) drug therapy; Z98.890 Other specified postprocedural states
CPT/HCPCS: 36415; 36416; 71045; 74177; 76705; 80048; 80053; 80307; 82553; 82607; 82746; 83690; 83735; 84478; 84484; 85025; 90935; 93005; 96374; 96375; G0257; G0378; J0360; J1644; J2270; J2405; J3475; J7120; Q0162; Q9967; U0003; U0005

== ENCOUNTER 2021-09-02 08:36 | Emergency (ER) | payer MEDICARE ==
[2021-09-02] MEDS ORDERED: Ondansetron ODT 4 MG TAB ONE (09:21)
[2021-09-02] MEDS ORDERED: Morphine 4 MG/ML VIAL ONE (09:21)
[2021-09-02 10:00] LABS: Bilirubin Negative (Negative); Blood, Urine Negative (Negative); Clarity Clear (Clear); Glucose, Urine (Dipstick) 100 mg/dL (Negative); Ketone, Urine Negative (Negative); Leukocyte 250 Leu/uL (Negative); Nitrite Negative (Negative); Protein, Urine (Dipstick) 300 mg/dL (Neg-Trace); Specific Gravity, Urine 1.019 (1.002-1.036); Squamous Epithelial 0-3 HPF (0-3); Urobilinogen Normal mg/dL (Less than 2); pH, Urine 6.5 (5.0-9.0)
[2021-09-02 10:01] LABS: Bacteria/HPF 1+ HPF (None Seen)
[2021-09-02] MEDS ORDERED: diphenhydrAMINE 25 MG CAP ONE (10:31)
== END 2021-09-02 11:22 | disposition home or self-care (01) ==
LOC: ERS 08:36
DX: M54.50 Low back pain, unspecified (principal); K21.9 Gastro-esophageal reflux disease without esophagitis; D50.9 Iron deficiency anemia, unspecified; I12.9 Hypertensive chronic kidney disease with stage 1 through stage 4 chronic kidney disease, or unspecified chronic kidney disease; N18.6 End stage renal disease; E11.22 Type 2 diabetes mellitus with diabetic chronic kidney disease; Z99.2 Dependence on renal dialysis; Z79.899 Other long term (current) drug therapy
CPT/HCPCS: 81003; 81015; 87086; 96372; 99283; J2270; Q0162

== ENCOUNTER 2021-09-06 12:54 | Outpatient (CLI) | payer MEDICARE | END 2021-09-06 12:55 | disposition home or self-care (01) | LOC: BICULT 12:54 | PROVIDERS: ATTEND Internal Medicine Endocrinology, Diabetes & Metabolism | DX: R10.9 Unspecified abdominal pain (principal); N27.1 Small kidney, bilateral | CPT/HCPCS: 76770 ==

== ENCOUNTER 2021-10-10 13:19 | Outpatient (CLI) | payer MEDICARE | END 2021-10-10 13:20 | disposition home or self-care (01) | LOC: MRI 13:19 | PROVIDERS: ATTEND Family Medicine | DX: M51.16 Intervertebral disc disorders with radiculopathy, lumbar region (principal); M47.26 Other spondylosis with radiculopathy, lumbar region; M47.817 Spondylosis without myelopathy or radiculopathy, lumbosacral region; M47.815 Spondylosis without myelopathy or radiculopathy, thoracolumbar region; M43.17 Spondylolisthesis, lumbosacral region; M48.07 Spinal stenosis, lumbosacral region | CPT/HCPCS: 72148 ==

== ENCOUNTER 2021-10-25 11:42 | Outpatient (CLI) | payer MEDICARE | END 2021-10-25 11:43 | disposition home or self-care (01) | LOC: RAD 11:42 | PROVIDERS: ATTEND Nurse Practitioner Family | DX: M43.16 Spondylolisthesis, lumbar region (principal); M43.17 Spondylolisthesis, lumbosacral region | CPT/HCPCS: 72120 ==

== ENCOUNTER 2022-10-31 13:55 | Outpatient (CLI) | payer MEDICARE | END 2022-10-31 13:56 | disposition home or self-care (01) | LOC: BICMAMMO 13:55 | PROVIDERS: ATTEND Family Medicine | DX: Z13.820 Encounter for screening for osteoporosis (principal); E89.40 Asymptomatic postprocedural ovarian failure; M81.0 Age-related osteoporosis without current pathological fracture | CPT/HCPCS: 77080 ==

== ENCOUNTER 2023-01-11 16:03 | Emergency (ER) | payer MEDICARE ==
[2023-01-11 17:14] LABS: #Basophils 0.1 thou/uL (0.0-0.2); #Eosinphils 0.1 thou/uL (0.0-0.7); #Lymphocytes 2.1 thou/uL (1.20-3.40); #Monocytes 0.8 thou/uL (0.11-0.59); #Neutrophils 3.5 thou/uL (1.40-6.50); %Basophils 1.6 % (0.0-1.0); %Eosinophils 1.7 % (0.0-10.0); %Lymphocytes 31.3 % (21.0-51.0); %Monocytes 12.4 % (0.0-10.0); %Neutrophils 53.1 % (42.0-75.0); Hemoglobin 10.9 g/dL (12.0-16.0); Mean Corpuscular HGB CONC 33.2 g/dL (32.0-36.0); Mean Corpuscular Hemoglobin 25.1 pg (27.0-31.0); Mean Corpuscular Volume 75.8 fl (78.0-98.0); Mean Platelet Volume 7.4 fL (7.4-10.4); Platelet Count 245 10x3/uL (130-400); RBC Distribution Width 13.6 % (11.5-14.5); Red Blood Cell (RBC) Count 4.32 mill/uL (4.20-5.40); White Blood Cell (WBC) Count 6.6 10x3/uL (4.8-10.8)
[2023-01-11 17:36] LABS: ALT (SGPT) Less than 7 U/L (8-55); AST (SGOT) 7 U/L (5-34); Albumin 4.5 g/dL (3.4-4.8); Alkaline Phosphatase 98 U/L (40-110); Anion Gap 18 mmol/L (10-20); BUN (Urea Nitrogen) 32 mg/dL (9.8-20.1); Bilirubin, Total 0.4 mg/dL (0.2-1.2); Calc. Creatinine Clearance 0 mL/min (70-130); Calcium 9.4 mg/dL (7.8-10.44); Carbon Dioxide 28 mmol/L (23-31); Chloride 97 mmol/L (98-107); Estimated GFR 6; Globulin 4.4 g/dL (2.4-3.5); Glucose 142 mg/dL (80-115); Potassium 4.8 mmol/L (3.5-5.1); Protein, Total 8.9 g/dL (5.8-8.1); Sodium 138 mmol/L (136-145)
== END 2023-01-11 17:46 | disposition home or self-care (01) ==
LOC: ERS 16:03
DX: L08.9 Local infection of the skin and subcutaneous tissue, unspecified (principal); I10 Essential (primary) hypertension; K21.9 Gastro-esophageal reflux disease without esophagitis; E11.22 Type 2 diabetes mellitus with diabetic chronic kidney disease; Z99.2 Dependence on renal dialysis; Z79.899 Other long term (current) drug therapy
CPT/HCPCS: 36415; 80053; 85025; 99283

== ENCOUNTER 2023-01-19 14:18 | Inpatient (IN) | payer MEDICARE ==
[2023-01-19] MEDS ORDERED: Ondansetron PF 4 MG/2 ML Vial ONE (16:06)
[2023-01-19] MEDS ORDERED: Morphine 2 MG/ML VIAL ONE ×2 (16:07→17:07)
[2023-01-19 16:12] LABS: #Basophils 0.1 thou/uL (0.0-0.2); #Eosinphils 0.2 thou/uL (0.0-0.7); #Lymphocytes 2.2 thou/uL (1.20-3.40); #Monocytes 0.7 thou/uL (0.11-0.59); #Neutrophils 4.2 thou/uL (1.40-6.50); %Basophils 1.1 % (0.0-1.0); %Eosinophils 2.4 % (0.0-10.0); %Monocytes 9.3 % (0.0-10.0); %Neutrophils 57.2 % (42.0-75.0); Hemoglobin 10.8 g/dL (12.0-16.0); Mean Corpuscular HGB CONC 32.3 g/dL (32.0-36.0); Mean Corpuscular Hemoglobin 24.3 pg (27.0-31.0); Mean Corpuscular Volume 75.2 fl (78.0-98.0); Mean Platelet Volume 7.1 fL (7.4-10.4); Platelet Count 280 10x3/uL (130-400); RBC Distribution Width 14.1 % (11.5-14.5); Red Blood Cell (RBC) Count 4.47 mill/uL (4.20-5.40); White Blood Cell (WBC) Count 7.3 10x3/uL (4.8-10.8)
[2023-01-19 16:33] LABS: ALT (SGPT) Less than 7 U/L (8-55); AST (SGOT) 7 U/L (5-34); Albumin 4.6 g/dL (3.4-4.8); Alkaline Phosphatase 117 U/L (40-110); Anion Gap 20 mmol/L (10-20); BUN (Urea Nitrogen) 36 mg/dL (9.8-20.1); Bilirubin, Total 0.5 mg/dL (0.2-1.2); CRP (Inflammatory) Less than 0.50 mg/dL (= or < 0.5); Calc. Creatinine Clearance 0 mL/min (70-130); Calcium 9.2 mg/dL (7.8-10.44); Carbon Dioxide 24 mmol/L (23-31); Chloride 98 mmol/L (98-107); Estimated GFR 5; Globulin 4.7 g/dL (2.4-3.5); Glucose 198 mg/dL (80-115); Potassium 4.8 mmol/L (3.5-5.1); Protein, Total 9.3 g/dL (5.8-8.1); Sodium 137 mmol/L (136-145)
[2023-01-19] MEDS ORDERED: Piperacillin/Tazobactam 4.5 GM VIAL ONE (16:34)
[2023-01-19] MEDS ORDERED: hydrALAZINE 20 MG/ML VIAL ONE (17:10)
[2023-01-19] MEDS ORDERED: Acetaminophen 325 MG TAB PO PRN (17:54)
[2023-01-19] MEDS ORDERED: Ondansetron ODT 4 MG TAB PO PRN (17:54)
[2023-01-19] MEDS ORDERED: Dextrose 50% Abboject 50 ML SYRINGE SLOW IVP PRN (18:10)
[2023-01-19] MEDS ORDERED: Dextrose 5% in Water 1,000 ML IV PRN (18:10)
[2023-01-19] MEDS ORDERED: Vancomycin HCl 1.5 GM in Sodium Chloride 0.9% 250 ML 300 ML IVPB SCH (18:15)
[2023-01-19] MEDS ORDERED: hydrALAZINE 20 MG/ML VIAL SLOW IVP PRN (18:25)
[2023-01-19] MEDS ORDERED: Vancomycin 1 GM/200 ML (FROZEN) BAG ONE (18:26)
[2023-01-19] MEDS: Metoprolol Tartrate 50 MG TAB PO SCH (19:52)
[2023-01-19] MEDS: HYDROcodone/Acetaminophen 10/325 mg Tablet PO PRN (19:58)
[2023-01-19] MEDS: Sodium Bicarbonate Tab 325 MG TAB PO SCH (19:59)
[2023-01-19] MEDS: Atorvastatin Calcium 40 MG TAB PO SCH (19:59)
[2023-01-19] MEDS ORDERED: cloNIDine 0.3 MG TAB PO SCH (21:00)
[2023-01-19] MEDS ORDERED: hydrALAZINE 25 MG TAB PO SCH (21:00)
[2023-01-19 21:25] VITALS: BMI 26.0
[2023-01-19] MEDS ORDERED: Vancomycin Hemodialysis Sliding Scale FS SCH (21:45)
[2023-01-19] MEDS ORDERED: Vancomycin HCl 500 MG in Sodium Chloride 0.9% 100 ML IVPB SCH (22:00)
[2023-01-19] MEDS: Morphine 2 MG/ML VIAL SLOW IVP PRN (22:27)
[2023-01-19] MEDS ORDERED: Morphine 2 MG/ML VIAL SLOW IVP SCH (23:45)
[2023-01-19] MEDS: Ondansetron PF 4 MG/2 ML Vial IVP PRN (23:56)
[2023-01-20] MEDS: Morphine 2 MG/ML VIAL SLOW IVP PRN ×3 (02:54→12:26)
[2023-01-20] MEDS: HYDROcodone/Acetaminophen 10/325 mg Tablet PO PRN ×2 (02:55→08:20)
[2023-01-20 05:28] LABS: #Basophils 0.1 thou/uL (0.0-0.2); #Eosinphils 0.2 thou/uL (0.0-0.7); #Lymphocytes 2.2 thou/uL (1.20-3.40); #Monocytes 0.7 thou/uL (0.11-0.59); #Neutrophils 3.4 thou/uL (1.40-6.50); %Basophils 0.9 % (0.0-1.0); %Eosinophils 2.7 % (0.0-10.0); %Monocytes 10.9 % (0.0-10.0); %Neutrophils 51.5 % (42.0-75.0); Hemoglobin 9.6 g/dL (12.0-16.0); Mean Corpuscular HGB CONC 30.4 g/dL (32.0-36.0); Mean Corpuscular Hemoglobin 23.3 pg (27.0-31.0); Mean Corpuscular Volume 76.4 fl (78.0-98.0); Mean Platelet Volume 7.1 fL (7.4-10.4); Platelet Count 272 10x3/uL (130-400); RBC Distribution Width 14.1 % (11.5-14.5); Red Blood Cell (RBC) Count 4.11 mill/uL (4.20-5.40); White Blood Cell (WBC) Count 6.6 10x3/uL (4.8-10.8)
[2023-01-20 05:41] LABS: Anion Gap 20 mmol/L (10-20); BUN (Urea Nitrogen) 38 mg/dL (9.8-20.1); Calc. Creatinine Clearance 6 mL/min (70-130); Calcium 8.6 mg/dL (7.8-10.44); Carbon Dioxide 25 mmol/L (23-31); Chloride 101 mmol/L (98-107); Estimated GFR 4; Glucose 162 mg/dL (80-115); Potassium 4.6 mmol/L (3.5-5.1); Sodium 141 mmol/L (136-145)
[2023-01-20 06:52] LABS: Vancomycin, Random 3.8 ug/mL (See Comment)
[2023-01-20] MEDS: Metoprolol Tartrate 50 MG TAB PO SCH ×2 (08:20→20:30)
[2023-01-20] MEDS: cloNIDine 0.3 MG TAB PO SCH ×2 (08:26→20:32)
[2023-01-20] MEDS: hydrALAZINE 25 MG TAB PO SCH ×2 (08:26→20:30)
[2023-01-20] MEDS: Folic Acid 1 MG TAB PO SCH (08:26)
[2023-01-20] MEDS: Sodium Bicarbonate Tab 325 MG TAB PO SCH ×3 (08:27→20:30)
[2023-01-20] MEDS ORDERED: Heparin 10,000 UNITS/ 10 ML VIAL ONE (08:30)
[2023-01-20 10:31] LABS: HBSAg Index 0.18 S/CO (0-0.99); Hep B Surf Ag Non-Reactive S/CO (NonReactive)
[2023-01-20 10:43] LABS: HBSAB Concentration 48.57 mIU/mL; Hep B Core Total Ab Reactive (NonReactive); Hep B Core Total Index 2.07 S/CO (0-0.79); Hep B Surf AB Reactive (NonReactive); Hep C IgG Ab Reflex HepC Qnt S/CO (NonReactive); Hep C Index 10.58 S/CO (0-0.79)
[2023-01-20] MEDS ORDERED: Vancomycin 1 GM in Premix Bag 1 BAG IVPB SCH (17:00)
[2023-01-20] MEDS ORDERED: fentaNYL PF 100 MCG/2 ML SYRINGE ONE (17:32)
[2023-01-20] MEDS ORDERED: Bupivacaine PF 0.5% 30 ML VIAL ONE (17:33)
[2023-01-20] MEDS ORDERED: Phenylephrine 10 MG/ML VIAL ONE (17:33)
[2023-01-20] MEDS ORDERED: Bacitracin Zinc Ointment 30 gm TUBE ONE (17:33)
[2023-01-20] MEDS ORDERED: Vancomycin 1 GM VIAL ONE (17:33)
[2023-01-20] MEDS ORDERED: Famotidine/PF 20 mg/2ml Vial ONE (17:42)
[2023-01-20] MEDS ORDERED: Ketamine In 0.9 % NaCl 50 MG/5 ML SYRINGE ONE (17:57)
[2023-01-20] MEDS ORDERED: PROPOFOL 200 MG/20 ML VIAL ONE (18:03)
[2023-01-20] MEDS: Atorvastatin Calcium 40 MG TAB PO SCH (20:30)
[2023-01-20] MEDS: Ondansetron PF 4 MG/2 ML Vial IVP PRN (20:39)
[2023-01-21 05:29] LABS: #Eosinphils 0.2 thou/uL (0.0-0.7); #Monocytes 0.7 thou/uL (0.11-0.59); #Neutrophils 3.1 thou/uL (1.40-6.50); %Basophils 0.7 % (0.0-1.0); %Lymphocytes 28.9 % (21.0-51.0); %Monocytes 12.5 % (0.0-10.0); %Neutrophils 54.7 % (42.0-75.0); Hemoglobin 8.7 g/dL (12.0-16.0); Mean Corpuscular HGB CONC 29.3 g/dL (32.0-36.0); Mean Corpuscular Hemoglobin 22.5 pg (27.0-31.0); Mean Corpuscular Volume 76.7 fl (78.0-98.0); Mean Platelet Volume 9.5 fL (7.4-10.4); Platelet Count 249 10x3/uL (130-400); RBC Distribution Width 15.1 % (11.5-14.5); Red Blood Cell (RBC) Count 3.87 mill/uL (4.20-5.40); White Blood Cell (WBC) Count 5.6 10x3/uL (4.8-10.8)
[2023-01-21] MEDS: Sodium Bicarbonate Tab 325 MG TAB PO SCH ×3 (09:27→20:46)
[2023-01-21] MEDS: cloNIDine 0.3 MG TAB PO SCH ×2 (09:28→20:45)
[2023-01-21] MEDS: Folic Acid 1 MG TAB PO SCH (09:28)
[2023-01-21] MEDS: Metoprolol Tartrate 50 MG TAB PO SCH ×2 (09:31→20:46)
[2023-01-21] MEDS: hydrALAZINE 25 MG TAB PO SCH ×2 (09:31→20:46)
[2023-01-21] MEDS: HYDROcodone/Acetaminophen 5/325 mg Tablet PO PRN ×2 (09:35→22:13)
[2023-01-21] MEDS: Morphine 2 MG/ML VIAL SLOW IVP PRN ×2 (14:26→20:42)
[2023-01-21] MEDS: HYDROcodone/Acetaminophen 10/325 mg Tablet PO PRN (17:27)
[2023-01-21] MEDS: Atorvastatin Calcium 40 MG TAB PO SCH (20:46)
[2023-01-22] MEDS: HYDROcodone/Acetaminophen 5/325 mg Tablet PO PRN (03:05)
[2023-01-22 07:19] LABS: Vancomycin, Random 7.5 ug/mL (See Comment)
[2023-01-22] MEDS: HYDROcodone/Acetaminophen 10/325 mg Tablet PO PRN ×2 (07:24→14:42)
[2023-01-22] MEDS ORDERED: Vancomycin Diaylsis Sliding Scale (Wt 71-99) FS SCH (07:45)
[2023-01-22] MEDS ORDERED: Cefepime 1 GM in Sodium Chloride 0.9% 100 ML IVPB SCH (09:00)
[2023-01-22] MEDS ORDERED: Heparin 10,000 UNITS/ 10 ML VIAL ONE (09:10)
[2023-01-22 14:14] LABS: Hep C PCR-Quant HCV Not Detected IU/mL (.)
[2023-01-22] MEDS: cloNIDine 0.3 MG TAB PO SCH ×2 (14:43→21:03)
[2023-01-22] MEDS: Metoprolol Tartrate 50 MG TAB PO SCH ×2 (14:43→21:02)
[2023-01-22] MEDS: hydrALAZINE 25 MG TAB PO SCH ×2 (14:43→21:02)
[2023-01-22] MEDS: Folic Acid 1 MG TAB PO SCH (14:43)
[2023-01-22] MEDS: Sodium Bicarbonate Tab 325 MG TAB PO SCH ×3 (14:44→21:02)
[2023-01-22] MEDS: Morphine 2 MG/ML VIAL SLOW IVP PRN (16:28)
[2023-01-22] MEDS: Cefepime 1 GM in Sodium Chloride 0.9% 100 ML IVPB SCH (16:55)
[2023-01-22] MEDS: Insulin Regular 300 UNITS/3 ML VIAL SC PRN (16:55)
[2023-01-22] MEDS ORDERED: VANCOMYCIN 1.25 GM/250 ML BAG 1.25 GM in Premix Bag 1 BAG IVPB SCH (17:00)
[2023-01-22] MEDS: Atorvastatin Calcium 40 MG TAB PO SCH (21:03)
[2023-01-23 07:07] LABS: #Basophils 0.1 thou/uL (0.0-0.2); #Monocytes 0.8 thou/uL (0.11-0.59); #Neutrophils 6.2 thou/uL (1.40-6.50); %Basophils 0.6 % (0.0-1.0); %Eosinophils 0.4 % (0.0-10.0); %Monocytes 9.8 % (0.0-10.0); %Neutrophils 73.1 % (42.0-75.0); Hemoglobin 9.3 g/dL (12.0-16.0); Mean Corpuscular Hemoglobin 22.2 pg (27.0-31.0); Mean Platelet Volume 8.9 fL (7.4-10.4); Platelet Count 283 10x3/uL (130-400); RBC Distribution Width 15.1 % (11.5-14.5); Red Blood Cell (RBC) Count 4.19 mill/uL (4.20-5.40); White Blood Cell (WBC) Count 8.5 10x3/uL (4.8-10.8)
[2023-01-23 07:33] LABS: Calcium 9.1 mg/dL (7.8-10.44); Chloride 95 mmol/L (98-107); Potassium 5.1 mmol/L (3.5-5.1); Sodium 134 mmol/L (136-145)
[2023-01-23 07:36] LABS: CellaVision Operator ID LAB.GE; Microcytosis SLIGHT = 6-15 cells HPF (0-5); Platelet Morphology Comment Platelets Normal; Polychromasia SLIGHT = 2-3 cells HPF (0-2)
[2023-01-23 07:47] LABS: Glucose 146 mg/dL (80-115)
[2023-01-23 07:49] LABS: Carbon Dioxide 23 mmol/L (23-31)
[2023-01-23 07:51] LABS: BUN (Urea Nitrogen) 26 mg/dL (9.8-20.1); Calc. Creatinine Clearance 9 mL/min (70-130); Estimated GFR 7
[2023-01-23] MEDS: Sodium Bicarbonate Tab 325 MG TAB PO SCH ×3 (08:38→20:36)
[2023-01-23] MEDS: Metoprolol Tartrate 50 MG TAB PO SCH ×2 (08:39→20:38)
[2023-01-23] MEDS: hydrALAZINE 25 MG TAB PO SCH ×2 (08:39→20:38)
[2023-01-23] MEDS: cloNIDine 0.3 MG TAB PO SCH ×2 (08:39→20:37)
[2023-01-23] MEDS: Folic Acid 1 MG TAB PO SCH (08:39)
[2023-01-23 08:58] LABS: Anion Gap 21 mmol/L (10-20)
[2023-01-23] MEDS: HYDROcodone/Acetaminophen 10/325 mg Tablet PO PRN (08:58)
[2023-01-23] MEDS ORDERED: Polyethylene Glycol 3350 17 GM Packet PO SCH (10:30)
[2023-01-23] MEDS ORDERED: Senokot S 8.6-50 MG TAB PO SCH (10:30)
[2023-01-23] MEDS: Ondansetron PF 4 MG/2 ML Vial IVP PRN ×2 (11:51→22:11)
[2023-01-23] MEDS: Insulin Regular 300 UNITS/3 ML VIAL SC PRN ×2 (11:52→16:08)
[2023-01-23] MEDS: Cefepime 1 GM in Sodium Chloride 0.9% 100 ML IVPB SCH (16:07)
[2023-01-23] MEDS: Morphine 2 MG/ML VIAL SLOW IVP PRN (20:16)
[2023-01-23] MEDS: Senokot S 8.6-50 MG TAB PO SCH (20:37)
[2023-01-23] MEDS: Atorvastatin Calcium 40 MG TAB PO SCH (20:38)
[2023-01-23] MEDS ORDERED: Bisacodyl 10 MG SUPP PR SCH (21:00)
[2023-01-24] MEDS: Morphine 2 MG/ML VIAL SLOW IVP PRN (01:33)
[2023-01-24] MEDS: HYDROcodone/Acetaminophen 10/325 mg Tablet PO PRN (03:05)
[2023-01-24] MEDS: HYDROcodone/Acetaminophen 5/325 mg Tablet PO PRN ×2 (07:56→13:56)
[2023-01-24] MEDS: cloNIDine 0.3 MG TAB PO SCH (08:00)
[2023-01-24] MEDS: Folic Acid 1 MG TAB PO SCH (08:00)
[2023-01-24] MEDS: Sodium Bicarbonate Tab 325 MG TAB PO SCH ×2 (08:00→13:56)
[2023-01-24] MEDS: hydrALAZINE 25 MG TAB PO SCH (08:01)
[2023-01-24] MEDS: Senokot S 8.6-50 MG TAB PO SCH (08:01)
[2023-01-24] MEDS: Metoprolol Tartrate 50 MG TAB PO SCH (08:01)
[2023-01-24] MEDS ORDERED: Heparin 10,000 UNITS/ 10 ML VIAL ONE (08:53)
[2023-01-24] MEDS ORDERED: Polyethylene Glycol 3350 17 GM Packet PO SCH (09:00)
[2023-01-24 13:26] VITALS: BP 166/68
[2023-01-24] MEDS: Cefepime 1 GM in Sodium Chloride 0.9% 100 ML IVPB SCH (14:32)
[2023-01-24 14:58] VITALS: TEMP 98.2
== END 2023-01-24 15:35 | disposition home or self-care (01) | DRG 477 ==
LOC: ERS 14:18 → SURG A 17:54 → OBSVTOIN 01-20 15:43
PROVIDERS: ADMIT Internal Medicine Critical Care Medicine; ATTEND Internal Medicine
PROC: 0PBV0ZX Excision of Left Finger Phalanx, Open Approach, Diagnostic (ICD-10-PCS; principal; 2023-01-20)
PROC: 0HDQXZZ Extraction of Finger Nail, External Approach (ICD-10-PCS; 2023-01-20)
PROC: 0J9K0ZZ Drainage of Left Hand Subcutaneous Tissue and Fascia, Open Approach (ICD-10-PCS; 2023-01-20)
DX: M65.842 Other synovitis and tenosynovitis, left hand (principal); N18.6 End stage renal disease; E87.1 Hypo-osmolality and hyponatremia; I12.0 Hypertensive chronic kidney disease with stage 5 chronic kidney disease or end stage renal disease; M86.8X4 Other osteomyelitis, hand; L02.512 Cutaneous abscess of left hand; E11.69 Type 2 diabetes mellitus with other specified complication; E11.22 Type 2 diabetes mellitus with diabetic chronic kidney disease; D63.1 Anemia in chronic kidney disease; B35.1 Tinea unguium; K21.9 Gastro-esophageal reflux disease without esophagitis; E87.6 Hypokalemia; Z90.710 Acquired absence of both cervix and uterus; Z98.41 Cataract extraction status, right eye; Z99.2 Dependence on renal dialysis; Z88.2 Allergy status to sulfonamides; Z88.6 Allergy status to analgesic agent; Z88.8 Allergy status to other drugs, medicaments and biological substances; Z79.899 Other long term (current) drug therapy
CPT/HCPCS: 36415; 36416; 80048; 80053; 80202; 85025; 85652; 86140; 86704; 87040; 87070; 87077; 87186; 87205; 87522; 88304; 88305; 88311; 88312; 90935; 93005; 93010; 96365; 96375; 96376; G0257; G0378; J0360; J0692; J1644; J1815; J2272; J2370; J2405; J2543; J2704; J3370; J3370-JW; J3490; S0020; S0028

== ENCOUNTER 2023-05-14 15:00 | Outpatient (CLI) | payer MEDICARE ==
[2023-05-14 16:41] LABS: #Basophils 0.1 10x3/uL (0.0-0.2); #Eosinphils 0.1 10x3/uL (0.0-0.5); #Monocytes 0.5 10x3/uL (0.0-1.1); #Neutrophils 1.5 10x3/uL (1.5-8.4); %Basophils 1.8 % (0.0-2.0); %Eosinophils 3.1 % (0.0-6.0); %Lymphocytes 42.2 % (18.0-47.0); %Neutrophils 39.6 % (40.0-75.0); Hematocrit 37.2 % (34.9-44.5); Hemoglobin 11.5 g/dL (12.0-15.5); Mean Corpuscular HGB CONC 30.9 g/dL (32.0-36.0); Mean Corpuscular Volume 74.3 fl (81.6-98.3); Mean Platelet Volume 9.8 fl (7.4-10.4); Platelet Count 249 10x3/uL (150-450); RBC Distribution Width 14.3 % (11.5-14.5); Red Blood Cell (RBC) Count 5.01 10x6/uL (3.90-5.03); White Blood Cell (WBC) Count 3.9 10x3/uL (3.5-10.5)
[2023-05-14 16:45] LABS: Anion Gap 14 mmol/L (10-20); BUN (Urea Nitrogen) 15 mg/dL (9.8-20.1); Calc. Creatinine Clearance 0 mL/min (70-130); Calcium 9.5 mg/dL (7.8-10.44); Carbon Dioxide 31 mmol/L (23-31); Chloride 96 mmol/L (98-107); Estimated GFR 11; Glucose 144 mg/dL (80-115); Potassium 4.4 mmol/L (3.5-5.1); Sodium 137 mmol/L (136-145)
[2023-05-14 17:39] LABS: Elliptocytes SLIGHT = 2-5 cells (100X) (0-1/hpf); Hypochromia SLIGHT = 6-15 cells (100X) (0-5/hpf); Microcytosis SLIGHT = 6-15 cells (100X) (0-5/hpf)
[2023-05-14 17:40] LABS: Platelet Adequacy Comment Appears Adequate
== END 2023-05-14 15:01 | disposition home or self-care (01) ==
LOC: LABBT 15:00
PROVIDERS: ATTEND Orthopaedic Surgery Hand Surgery
DX: Z01.818 Encounter for other preprocedural examination (principal); T81.89XA Other complications of procedures, not elsewhere classified, initial encounter
CPT/HCPCS: 80048; 85025; 93005; 93010

== ENCOUNTER → 2023-05-16 | Day surgery (SDC) | payer MEDICARE ==
[2023-05-14 15:32] VITALS: BMI 24.3
[~2023-05-16] MED LIST changes: +Bacitracin Zinc Ointment 30 gm TUBE ONE; +Bupivacaine PF 0.5% 30 ML VIAL ONE; +CEFAZOLIN 2 GM VIAL ONE; +Dexamethasone 20 MG/5 ML VIAL ONE; -Iopamidol-370 76% 500 ML 1 ML ONE; +Lidocaine 1% PF 5 ML VIAL ONE; +Mineral Oil Sterile 10 ML VIAL ONE; +Ondansetron PF 4 MG/2 ML Vial ONE; +PHENYLEPHRINE-NS 100 MCG/ML 10 ML SYRINGE ONE; +PROPOFOL 200 MG/20 ML VIAL ONE; +Sodium Chloride 0.9% 100 ML ONE; +fentaNYL PF 100 MCG/2 ML SYRINGE ONE
== END ==
LOC: SDC 08:37
PROVIDERS: ATTEND Orthopaedic Surgery Hand Surgery
PROC: 0KDD0ZZ Extraction of Left Hand Muscle, Open Approach (ICD-10-PCS; principal; 2023-05-16)
PROC: 0HRGX73 Replacement of Left Hand Skin with Autologous Tissue Substitute, Full Thickness, External Approach (ICD-10-PCS; 2023-05-16)
DX: T81.89XA Other complications of procedures, not elsewhere classified, initial encounter (principal); N18.6 End stage renal disease; E11.22 Type 2 diabetes mellitus with diabetic chronic kidney disease; Z99.2 Dependence on renal dialysis; Z88.5 Allergy status to narcotic agent; Z88.2 Allergy status to sulfonamides; Z79.899 Other long term (current) drug therapy
CPT/HCPCS: J1100; J2405; J2704; J3490; S0020

== ENCOUNTER 2023-07-28 12:13 | Emergency (ER) | payer MEDICARE ==
[2023-07-28 12:56] LABS: #Basophils 0.1 thou/uL (0.0-0.2); #Eosinphils 0.1 thou/uL (0.0-0.7); #Monocytes 0.5 thou/uL (0.11-0.59); #Neutrophils 4.6 thou/uL (1.40-6.50); %Basophils 0.9 % (0.0-1.0); %Eosinophils 1.5 % (0.0-10.0); %Lymphocytes 22.4 % (21.0-51.0); %Monocytes 6.7 % (0.0-10.0); %Neutrophils 68.2 % (42.0-75.0); Hematocrit 23.8 % (36.0-47.0); Hemoglobin 7.3 g/dL (12.0-16.0); Mean Corpuscular HGB CONC 30.7 g/dL (32.0-36.0); Mean Corpuscular Hemoglobin 22.3 pg (27.0-31.0); Mean Corpuscular Volume 72.8 fl (78.0-98.0); Mean Platelet Volume 9.4 fL (7.4-10.4); Platelet Count 277 10x3/uL (130-400); RBC Distribution Width 16.2 % (11.5-14.5); Red Blood Cell (RBC) Count 3.27 mill/uL (4.20-5.40); White Blood Cell (WBC) Count 6.7 10x3/uL (4.8-10.8)
[2023-07-28 13:26] LABS: ALT (SGPT) Less than 7 U/L (8-55); AST (SGOT) 12 U/L (5-34); Albumin 4.7 g/dL (3.4-4.8); Alkaline Phosphatase 80 U/L (40-110); Anion Gap 16 mmol/L (10-20); BUN (Urea Nitrogen) 11 mg/dL (9.8-20.1); Bilirubin, Total 0.6 mg/dL (0.2-1.2); Calc. Creatinine Clearance 0 mL/min (70-130); Calcium 9.6 mg/dL (7.8-10.44); Carbon Dioxide 30 mmol/L (23-31); Chloride 93 mmol/L (98-107); Estimated GFR 12; Globulin 4.1 g/dL (2.4-3.5); Glucose 281 mg/dL (80-115); Potassium 3.6 mmol/L (3.5-5.1); Protein, Total 8.8 g/dL (5.8-8.1); Sodium 135 mmol/L (136-145)
[2023-07-28 13:42] LABS: Anisocytosis SLIGHT = 6-15 cells HPF (0-5); CellaVision Operator ID LAB.MJL; Hypochromia SLIGHT = 6-15 cells HPF (0-5); Microcytosis SLIGHT = 6-15 cells HPF (0-5); Ovalocytes SLIGHT = 2-5 cells HPF (0-1); Platelet Adequacy Comment Platelets Normal; Poikilocytosis SLIGHT = 6-15 cells HPF (0-5); Polychromasia SLIGHT = 2-3 cells HPF (0-2); Target Cells SLIGHT = 2-5 cells HPF (0-1)
[2023-07-28] MEDS ORDERED: diphenhydrAMINE 25 MG CAP ONE (15:47)
[2023-07-28] MEDS ORDERED: cloNIDine 0.1 MG TAB ONE (18:33)
== END 2023-07-28 17:57 | disposition home or self-care (01) ==
LOC: ERS 12:13
DX: I12.0 Hypertensive chronic kidney disease with stage 5 chronic kidney disease or end stage renal disease (principal); E11.22 Type 2 diabetes mellitus with diabetic chronic kidney disease; N18.6 End stage renal disease; D63.1 Anemia in chronic kidney disease; K21.9 Gastro-esophageal reflux disease without esophagitis; Z99.2 Dependence on renal dialysis; Z79.899 Other long term (current) drug therapy; Z79.84 Long term (current) use of oral hypoglycemic drugs
CPT/HCPCS: 36430; 80053; 85025; 86850; 86900; 86901; 86920; 99284; P9016; 36415

== ENCOUNTER 2023-11-12 09:22 | Emergency (ER) | payer MEDICARE ==
[2023-11-12 09:53] LABS: #Eosinphils 0.1 thou/uL (0.0-0.7); #Monocytes 0.5 thou/uL (0.11-0.59); #Neutrophils 3.8 thou/uL (1.40-6.50); %Basophils 0.7 % (0.0-1.0); %Eosinophils 1.9 % (0.0-10.0); %Lymphocytes 23.3 % (21.0-51.0); %Neutrophils 64.9 % (42.0-75.0); Hematocrit 24.8 % (36.0-47.0); Hemoglobin 7.9 g/dL (12.0-16.0); Mean Corpuscular HGB CONC 31.9 g/dL (32.0-36.0); Mean Corpuscular Hemoglobin 23.2 pg (27.0-31.0); Mean Corpuscular Volume 72.9 fl (78.0-98.0); Mean Platelet Volume 9.1 fL (7.4-10.4); Platelet Count 231 10x3/uL (130-400); RBC Distribution Width 14.9 % (11.5-14.5); White Blood Cell (WBC) Count 5.8 10x3/uL (4.8-10.8)
[2023-11-12 10:28] LABS: Troponin I 0.012 ng/mL (< 0.028)
[2023-11-12] MEDS ORDERED: hydrALAZINE 20 MG/ML VIAL ONE (10:36)
[2023-11-12 10:44] LABS: ALT (SGPT) Less than 7 U/L (8-55); Albumin 4.2 g/dL (3.4-4.8); Alkaline Phosphatase 60 U/L (40-110); Anion Gap 14 mmol/L (10-20); BUN (Urea Nitrogen) 9 mg/dL (9.8-20.1); Bilirubin, Total 0.8 mg/dL (0.2-1.2); Calc. Creatinine Clearance 0 mL/min (70-130); Calcium 9.6 mg/dL (7.8-10.44); Carbon Dioxide 29 mmol/L (23-31); Estimated GFR 20; Glucose 148 mg/dL (80-115); Lipase 40 U/L (8-78); Potassium 3.2 mmol/L (3.5-5.1); Protein, Total 8.2 g/dL (5.8-8.1)
[2023-11-12 10:50] LABS: AST (SGOT) 8 U/L (5-34)
[2023-11-12 10:52] LABS: Chloride 95 mmol/L (98-107); Sodium 135 mmol/L (136-145)
[2023-11-12 11:15] LABS: CellaVision Operator ID LAB.KW3; Elliptocytes SLIGHT = 2-5 cells HPF (0-1); Platelet Adequacy Comment Platelets Normal; Polychromasia SLIGHT = 2-3 cells HPF (0-2); Schistocytes SLIGHT = 2-5 cells HPF (0-1); Target Cells SLIGHT = 2-5 cells HPF (0-1)
[2023-11-12] MEDS ORDERED: diphenhydrAMINE 25 MG CAP ONE (11:45)
[2023-11-12 13:12] LABS: Troponin I 0.016 ng/mL (< 0.028)
== END 2023-11-12 13:25 | disposition home or self-care (01) ==
LOC: ERS 09:22
DX: R07.89 Other chest pain (principal); D64.9 Anemia, unspecified; K21.9 Gastro-esophageal reflux disease without esophagitis; I12.0 Hypertensive chronic kidney disease with stage 5 chronic kidney disease or end stage renal disease; E11.22 Type 2 diabetes mellitus with diabetic chronic kidney disease; N18.6 End stage renal disease; Z99.2 Dependence on renal dialysis; Z79.899 Other long term (current) drug therapy
CPT/HCPCS: 70450; 71045; 80053; 82962; 83605; 83690; 84484 ×2; 85025; 93005; J0360; 36415; 36416; 96374

== ENCOUNTER 2023-11-26 09:39 | Emergency (ER) | payer MEDICARE ==
[2023-11-26] MEDS ORDERED: Magnesium Citrate 300 ML BOT ONE (10:09)
[2023-11-26 10:54] LABS: #Eosinphils 0.2 thou/uL (0.0-0.7); #Monocytes 0.5 thou/uL (0.11-0.59); #Neutrophils 3.2 thou/uL (1.40-6.50); %Basophils 0.4 % (0.0-1.0); %Eosinophils 3.2 % (0.0-10.0); %Lymphocytes 24.6 % (21.0-51.0); %Monocytes 9.1 % (0.0-10.0); %Neutrophils 62.5 % (42.0-75.0); Hemoglobin 7.2 g/dL (12.0-16.0); Mean Corpuscular HGB CONC 31.3 g/dL (32.0-36.0); Mean Corpuscular Hemoglobin 23.2 pg (27.0-31.0); Mean Platelet Volume 9.7 fL (7.4-10.4); Platelet Count 240 10x3/uL (130-400); RBC Distribution Width 15.1 % (11.5-14.5); Red Blood Cell (RBC) Count 3.11 mill/uL (4.20-5.40)
[2023-11-26 11:06] LABS: Anion Gap 14 mmol/L (10-20); BUN (Urea Nitrogen) 6 mg/dL (9.8-20.1); Calc. Creatinine Clearance 0 mL/min (70-130); Calcium 9.3 mg/dL (7.8-10.44); Carbon Dioxide 30 mmol/L (23-31); Chloride 97 mmol/L (98-107); Estimated GFR 16; Glucose 228 mg/dL (80-115); Potassium 3.4 mmol/L (3.5-5.1); Sodium 138 mmol/L (136-145)
[2023-11-26] MEDS ORDERED: diphenhydrAMINE 25 MG CAP ONE (11:11)
[2023-11-26 11:34] LABS: Anisocytosis SLIGHT = 6-15 cells HPF (0-5); CellaVision Operator ID LAB.KW3; Elliptocytes SLIGHT = 2-5 cells HPF (0-1); Platelet Adequacy Comment Platelets Normal; Schistocytes SLIGHT = 2-5 cells HPF (0-1)
== END 2023-11-26 12:02 | disposition home or self-care (01) ==
LOC: ERS 09:39
DX: D64.9 Anemia, unspecified (principal); K59.00 Constipation, unspecified; E11.22 Type 2 diabetes mellitus with diabetic chronic kidney disease; N18.6 End stage renal disease; I12.0 Hypertensive chronic kidney disease with stage 5 chronic kidney disease or end stage renal disease; K21.9 Gastro-esophageal reflux disease without esophagitis; Z79.899 Other long term (current) drug therapy; Z99.2 Dependence on renal dialysis
CPT/HCPCS: 36415; 80048; 85025; 86850; 86900; 86901; 93005

== ENCOUNTER 2024-02-07 09:45 | Inpatient (IN) | payer MEDICARE ==
[2024-02-07] MEDS ORDERED: diphenhydrAMINE 50 MG/ML VIAL ONE (10:17)
[2024-02-07] MEDS ORDERED: Ondansetron PF 4 MG/2 ML Vial ONE (10:18)
[2024-02-07 11:31] LABS: #Basophils 0.07 10x3/uL (0.0-0.2); %Basophils 1.3 % (0.0-1.0); %Eosinophils 2.7 % (0.0-10.0); %Lymphocytes 24.7 % (21.0-51.0); %Monocytes 13.4 % (0.0-10.0); %Neutrophils 57.7 % (42.0-75.0); Hematocrit 40.6 % (36.0-47.0); Hemoglobin 12.6 g/dL (12.0-16.0); Mean Corpuscular Hemoglobin 22.6 pg (27.0-31.0); Mean Corpuscular Volume 72.8 fL (78.0-98.0); Platelet Count 386 10x3/uL (130-400); RBC Distribution Width 15.9 % (11.5-14.5); Red Blood Cell (RBC) Count 5.58 mill/uL (4.20-5.40)
[2024-02-07 11:50] LABS: Troponin I 0.063 ng/mL (< 0.028)
[2024-02-07 12:30] LABS: ALT (SGPT) Less than 5 U/L (8-55); AST (SGOT) 17 U/L (5-34); Albumin 3.2 g/dL (3.4-4.8); Alkaline Phosphatase 60 U/L (40-110); Anion Gap 18 mmol/L (10-20); BUN (Urea Nitrogen) 20 mg/dL (9.8-20.1); Bilirubin, Total 0.5 mg/dL (0.2-1.2); Calc. Creatinine Clearance 0 mL/min (70-130); Carbon Dioxide 27 mmol/L (23-31); Chloride 96 mmol/L (98-107); Estimated GFR 7; Glucose 216 mg/dL (80-115); Lipase 76 U/L (8-78); Potassium 4.3 mmol/L (3.5-5.1); Protein, Total 8.2 g/dL (5.8-8.1); Sodium 137 mmol/L (136-145)
[2024-02-07] MEDS ORDERED: Aspirin Chewable 81 MG TAB ONE (12:43)
[2024-02-07] MEDS ORDERED: HumaLOG 300 UNITS/3 ML VIAL SC PRN ×2 (13:48)
[2024-02-07] MEDS ORDERED: Ondansetron PF 4 MG/2 ML Vial IVP PRN (13:48)
[2024-02-07] MEDS ORDERED: Dextrose 50% Abboject 50 ML SYRINGE SLOW IVP PRN (13:48)
[2024-02-07] MEDS ORDERED: Dextrose 5% in Water 1,000 ML IV PRN (13:48)
[2024-02-07] MEDS ORDERED: Glucagon 1 MG/ML KIT IM PRN (13:48)
[2024-02-07] MEDS: Pantoprazole 40 MG VIAL IVP SCH (14:50)
[2024-02-07] MEDS: cloNIDine 0.1 MG TAB PO SCH (14:50)
[2024-02-07] MEDS: Gabapentin 300 MG CAP PO SCH (14:51)
[2024-02-07] MEDS: Sodium Chloride 0.9% 500 ML IV SCH (14:57)
[2024-02-07] MEDS: Heparin 5,000 UNITS/ML VIAL SC SCH (15:06)
[2024-02-07] MEDS: hydrALAZINE 25 MG TAB PO SCH (15:06)
[2024-02-07 15:29] VITALS: BMI 22.1
[2024-02-07 17:20] LABS: Troponin I 0.053 ng/mL (< 0.028)
[2024-02-07 18:47] LABS: Troponin I 0.052 ng/mL (< 0.028)
[2024-02-07] MEDS: Atorvastatin Calcium 40 MG TAB PO SCH (22:34)
[2024-02-07] MEDS: Metoprolol Tartrate 50 MG TAB PO SCH (22:37)
[2024-02-07] MEDS: NIFEdipine XL 30 MG ER.TAB PO SCH (22:41)
[2024-02-07] MEDS: Nitroglycerin 2% Ointment 1 INCH/1 GM Packet TOP SCH (22:42)
[2024-02-08] MEDS: diphenhydrAMINE 25 MG CAP PO SCH (00:36)
[2024-02-08 05:03] LABS: #Basophils 0.06 10x3/uL (0.0-0.2); %Basophils 1.3 % (0.0-1.0); %Eosinophils 5.7 % (0.0-10.0); %Lymphocytes 38.8 % (21.0-51.0); %Monocytes 16.3 % (0.0-10.0); %Neutrophils 37.7 % (42.0-75.0); Hematocrit 35.4 % (36.0-47.0); Mean Corpuscular HGB CONC 31.1 g/dL (32.0-36.0); Mean Corpuscular Hemoglobin 21.9 pg (27.0-31.0); Mean Corpuscular Volume 70.5 fL (78.0-98.0); Mean Platelet Volume 9.3 fL (7.4-10.4); Platelet Count 303 10x3/uL (130-400); RBC Distribution Width 15.9 % (11.5-14.5); Red Blood Cell (RBC) Count 5.02 mill/uL (4.20-5.40)
[2024-02-08 05:08] LABS: Anion Gap 17 mmol/L (10-20); BUN (Urea Nitrogen) 31 mg/dL (9.8-20.1); Calc. Creatinine Clearance 6 mL/min (70-130); Calcium 8.8 mg/dL (7.8-10.44); Carbon Dioxide 26 mmol/L (23-31); Chloride 103 mmol/L (98-107); Estimated GFR 6; Glucose 178 mg/dL (80-115); Potassium 4.6 mmol/L (3.5-5.1); Sodium 141 mmol/L (136-145)
[2024-02-08] MEDS: Aspirin 81 mg Enteric Coated Tablet PO SCH (08:33)
[2024-02-08] MEDS: Losartan 25 MG TAB PO SCH (08:34)
[2024-02-08] MEDS: Pantoprazole 40 MG VIAL IVP SCH (08:35)
[2024-02-08] MEDS ORDERED: Prochlorperazine Maleate 5 MG TAB PO PRN (09:05)
[2024-02-09 05:00] LABS: #Basophils 0.06 10x3/uL (0.0-0.2); %Basophils 1.2 % (0.0-1.0); %Eosinophils 4.1 % (0.0-10.0); %Lymphocytes 36.2 % (21.0-51.0); %Monocytes 13.4 % (0.0-10.0); %Neutrophils 44.9 % (42.0-75.0); Hematocrit 37.1 % (36.0-47.0); Hemoglobin 11.4 g/dL (12.0-16.0); Mean Corpuscular HGB CONC 30.7 g/dL (32.0-36.0); Mean Corpuscular Hemoglobin 22.5 pg (27.0-31.0); Mean Corpuscular Volume 73.3 fL (78.0-98.0); Mean Platelet Volume 9.6 fL (7.4-10.4); Platelet Count 378 10x3/uL (130-400); Red Blood Cell (RBC) Count 5.06 mill/uL (4.20-5.40)
[2024-02-09 05:20] LABS: Albumin 2.7 g/dL (3.4-4.8); Anion Gap 20 mmol/L (10-20); BUN (Urea Nitrogen) 36 mg/dL (9.8-20.1); BUN/Creatinine Ratio 3.97; Calc. Creatinine Clearance 5 mL/min (70-130); Calcium 9.3 mg/dL (7.8-10.44); Carbon Dioxide 21 mmol/L (23-31); Chloride 104 mmol/L (98-107); Estimated GFR 4; Glucose 142 mg/dL (80-115); Phosphorus 4.2 mg/dL (2.3-4.7); Potassium 5.4 mmol/L (3.5-5.1); Sodium 140 mmol/L (136-145)
[2024-02-09] MEDS: Docusate 100 MG CAP PO PRN (09:15)
[2024-02-09 09:32] LABS: HBsAg Index 0.74 S/CO (0-0.99); Hep B Surf AB REACTIVE (NonReactive); Hep B Surf Ag NONREACTIVE S/CO (NonReactive)
[2024-02-09 09:33] LABS: Hep C IgG Ab Reflex HepC Qnt S/CO (NonReactive); Hep C Index 11.72 S/CO (0-0.79)
[2024-02-09] MEDS ORDERED: Heparin 10,000 UNITS/ 10 ML VIAL ONE (09:34)
[2024-02-09 10:07] LABS: Hep B Core Total Ab REACTIVE (NonReactive); Hep B Core Total Index 1.31 S/CO (0-0.79)
[2024-02-09] MEDS: Acetaminophen 325 MG TAB PO PRN (18:15)
[2024-02-09] MEDS: HYDROcodone/Acetaminophen 10/325 mg Tablet PO SCH (22:18)
[2024-02-09] MEDS: hydrALAZINE 25 MG TAB PO SCH (23:51)
[2024-02-10] MEDS ORDERED: Labetalol HCl 100 MG/20 ML VIAL SLOW IVP SCH (02:45)
[2024-02-10] MEDS: Labetalol HCl 100 MG/20 ML VIAL SLOW IVP SCH (02:57)
[2024-02-10 04:40] LABS: #Basophils 0.04 10x3/uL (0.0-0.2); %Basophils 0.8 % (0.0-1.0); %Eosinophils 2.1 % (0.0-10.0); %Lymphocytes 29.4 % (21.0-51.0); %Monocytes 11.7 % (0.0-10.0); Hematocrit 36.9 % (36.0-47.0); Hemoglobin 11.3 g/dL (12.0-16.0); Mean Corpuscular HGB CONC 30.6 g/dL (32.0-36.0); Mean Corpuscular Hemoglobin 22.3 pg (27.0-31.0); Mean Corpuscular Volume 72.8 fL (78.0-98.0); Mean Platelet Volume 9.1 fL (7.4-10.4); Platelet Count 346 10x3/uL (130-400); RBC Distribution Width 15.9 % (11.5-14.5); Red Blood Cell (RBC) Count 5.07 mill/uL (4.20-5.40)
[2024-02-10 04:54] LABS: Anion Gap 15 mmol/L (10-20); BUN (Urea Nitrogen) 21 mg/dL (9.8-20.1); Calc. Creatinine Clearance 8 mL/min (70-130); Calcium 8.8 mg/dL (7.8-10.44); Carbon Dioxide 25 mmol/L (23-31); Chloride 102 mmol/L (98-107); Estimated GFR 7; Glucose 155 mg/dL (80-115); Potassium 4.3 mmol/L (3.5-5.1); Sodium 138 mmol/L (136-145)
[2024-02-10] MEDS: Carvedilol 6.25 MG TAB PO SCH ×2 (08:55→16:18)
[2024-02-10] MEDS ORDERED: PROPOFOL 200 MG/20 ML VIAL ONE (10:37)
[2024-02-10] MEDS ORDERED: Lidocaine 1% PF 5 ML VIAL ONE (10:37)
[2024-02-10] MEDS ORDERED: ePHEDrine Sulfate 50 MG/10 ML VIAL ONE (10:42)
[2024-02-10 11:23] LABS: Hemoglobin A1c 6.7 % (4.0-6.0)
[2024-02-10] MEDS: hydrALAZINE 20 MG/ML VIAL SLOW IVP PRN (17:10)
[2024-02-10] MEDS: Prochlorperazine Maleate 5 MG TAB PO PRN (18:44)
[2024-02-10] MEDS: HYDROcodone/Acetaminophen 10/325 mg Tablet PO SCH (22:30)
[2024-02-11 05:55] LABS: #Basophils 0.05 10x3/uL (0.0-0.2); %Basophils 1.1 % (0.0-1.0); %Eosinophils 3.4 % (0.0-10.0); %Lymphocytes 36.5 % (21.0-51.0); %Monocytes 13.7 % (0.0-10.0); %Neutrophils 45.1 % (42.0-75.0); Hemoglobin 10.8 g/dL (12.0-16.0); Mean Corpuscular Hemoglobin 22.3 pg (27.0-31.0); Mean Corpuscular Volume 74.2 fL (78.0-98.0); Mean Platelet Volume 8.9 fL (7.4-10.4); Platelet Count 311 10x3/uL (130-400); RBC Distribution Width 15.9 % (11.5-14.5); Red Blood Cell (RBC) Count 4.85 mill/uL (4.20-5.40)
[2024-02-11 06:07] LABS: Anion Gap 17 mmol/L (10-20); BUN (Urea Nitrogen) 35 mg/dL (9.8-20.1); Calc. Creatinine Clearance 6 mL/min (70-130); Calcium 9.1 mg/dL (7.8-10.44); Carbon Dioxide 22 mmol/L (23-31); Chloride 105 mmol/L (98-107); Estimated GFR 5; Glucose 176 mg/dL (80-115); Potassium 5.2 mmol/L (3.5-5.1); Sodium 139 mmol/L (136-145)
[2024-02-11] MEDS: HYDROcodone/Acetaminophen 10/325 mg Tablet PO PRN (12:23)
[2024-02-11 15:27] VITALS: BP 189/68; TEMP 97.8
== END 2024-02-11 15:46 | disposition home or self-care (01) | DRG 391 ==
LOC: ERS 09:45 → 2NO 12:56 → OBSVTOIN 02-09 09:04 → T4-B 02-10 18:05
PROVIDERS: ADMIT Family Medicine; ATTEND Family Medicine
PROC: 0DB68ZX Excision of Stomach, Via Natural or Artificial Opening Endoscopic, Diagnostic (ICD-10-PCS; principal; 2024-02-10)
DX: K29.70 Gastritis, unspecified, without bleeding (principal); I21.A1 Myocardial infarction type 2; N18.6 End stage renal disease; I12.0 Hypertensive chronic kidney disease with stage 5 chronic kidney disease or end stage renal disease; D63.1 Anemia in chronic kidney disease; E11.22 Type 2 diabetes mellitus with diabetic chronic kidney disease; E87.5 Hyperkalemia; K59.00 Constipation, unspecified; E78.5 Hyperlipidemia, unspecified; I27.20 Pulmonary hypertension, unspecified; K21.9 Gastro-esophageal reflux disease without esophagitis; E88.09 Other disorders of plasma-protein metabolism, not elsewhere classified; Z66 Do not resuscitate; Z99.2 Dependence on renal dialysis; Z79.899 Other long term (current) drug therapy; Z88.2 Allergy status to sulfonamides; Z91.048 Other nonmedicinal substance allergy status; Z88.8 Allergy status to other drugs, medicaments and biological substances; Z79.82 Long term (current) use of aspirin; Z90.710 Acquired absence of both cervix and uterus; Z98.890 Other specified postprocedural states
CPT/HCPCS: 36415; 36416; 71045; 76705; 80048; 80053; 80069; 83036; 83690; 83735; 83880; 84484; 85025; 86704; 86706; 86803; 87340; 88305; 90935; 93005; 96374; 96375; C9113; G0257; J0360; J1200; J1644; J1815; J2405; J2704; J7050; Q0164

== ENCOUNTER 2024-02-20 07:14 | Emergency (ER) | payer MEDICARE ==
[2024-02-20] MEDS ORDERED: diphenhydrAMINE 50 MG/ML VIAL ONE (08:34)
[2024-02-20] MEDS ORDERED: Haloperidol Lactate 5 MG/ML VIAL ONE (08:44)
[2024-02-20 08:46] LABS: #Basophils 0.04 10x3/uL (0.0-0.2); %Basophils 0.5 % (0.0-1.0); %Eosinophils 2.2 % (0.0-10.0); %Lymphocytes 15.2 % (21.0-51.0); %Monocytes 7.7 % (0.0-10.0); Hematocrit 38.1 % (36.0-47.0); Hemoglobin 11.7 g/dL (12.0-16.0); Mean Corpuscular HGB CONC 30.7 g/dL (32.0-36.0); Mean Corpuscular Hemoglobin 22.2 pg (27.0-31.0); Mean Corpuscular Volume 72.4 fL (78.0-98.0); Platelet Count 299 10x3/uL (130-400); RBC Distribution Width 15.8 % (11.5-14.5); Red Blood Cell (RBC) Count 5.26 mill/uL (4.20-5.40)
[2024-02-20] MEDS ORDERED: hydrALAZINE 20 MG/ML VIAL ONE (08:54)
[2024-02-20 09:02] LABS: ALT (SGPT) Less than 5 U/L (8-55); AST (SGOT) 21 U/L (5-34); Albumin 3.6 g/dL (3.4-4.8); Alkaline Phosphatase 68 U/L (40-110); Anion Gap 19 mmol/L (10-20); BUN (Urea Nitrogen) 18 mg/dL (9.8-20.1); Bilirubin, Total 0.5 mg/dL (0.2-1.2); Calc. Creatinine Clearance 0 mL/min (70-130); Calcium 9.7 mg/dL (7.8-10.44); Carbon Dioxide 29 mmol/L (23-31); Chloride 97 mmol/L (98-107); Estimated GFR 9; Globulin 4.7 g/dL (2.4-3.5); Glucose 201 mg/dL (80-115); Potassium 4.6 mmol/L (3.5-5.1); Protein, Total 8.3 g/dL (5.8-8.1); Sodium 140 mmol/L (136-145)
[2024-02-20 09:07] LABS: Anisocytosis SLIGHT = 6-15 cells HPF (0-5); Hypochromia SLIGHT = 6-15 cells HPF (0-5); Microcytosis SLIGHT = 6-15 cells HPF (0-5); Ovalocytes SLIGHT = 2-5 cells HPF (0-1); Platelet Adequacy Comment Platelets Normal; Poikilocytosis SLIGHT = 6-15 cells HPF (0-5); Polychromasia SLIGHT = 2-3 cells HPF (0-2); Target Cells SLIGHT = 2-5 cells HPF (0-1)
[2024-02-20] MEDS ORDERED: Heparin 10,000 UNITS/ 10 ML VIAL ONE (09:28)
[2024-02-20] MEDS ORDERED: HYDROmorphone 0.5 MG/0.5 ML SYRINGE ONE (09:51)
== END 2024-02-20 20:32 | disposition home or self-care (01) ==
LOC: ERS 07:14
DX: R51.9 Headache, unspecified (principal); I10 Essential (primary) hypertension; E11.9 Type 2 diabetes mellitus without complications; Z79.899 Other long term (current) drug therapy
CPT/HCPCS: 70450; 80053; 85025; 96374; 96375; 99285; J0360; J1170; J1200; J1630; J1644

== ENCOUNTER 2024-02-24 11:20 | Observation (INO) | payer MEDICARE ==
[2024-02-24] MEDS ORDERED: diphenhydrAMINE 50 MG/ML VIAL ONE (12:03)
[2024-02-24] MEDS ORDERED: Prochlorperazine 10 MG/2 ML VIAL ONE (12:05)
[2024-02-24] MEDS ORDERED: methylPREDNISolone Sod Succ/PF 125 MG/2 ML VIAL ONE (13:51)
[2024-02-24] MEDS ORDERED: Magnesium 2 GM/50 ML BAG (IN WATER) ONE (13:51)
[2024-02-24 15:57] LABS: #Basophils Less than 0.03 10x3/uL (0.0-0.2); %Basophils 0.4 % (0.0-1.0); %Eosinophils 1.4 % (0.0-10.0); %Lymphocytes 19.6 % (21.0-51.0); %Monocytes 6.2 % (0.0-10.0); Hematocrit 37.2 % (36.0-47.0); Hemoglobin 11.3 g/dL (12.0-16.0); Mean Corpuscular HGB CONC 30.4 g/dL (32.0-36.0); Mean Corpuscular Hemoglobin 22.4 pg (27.0-31.0); Mean Corpuscular Volume 73.8 fL (78.0-98.0); Mean Platelet Volume 8.9 fL (7.4-10.4); Platelet Count 248 10x3/uL (130-400); RBC Distribution Width 16.8 % (11.5-14.5); Red Blood Cell (RBC) Count 5.04 mill/uL (4.20-5.40)
[2024-02-24 16:16] LABS: Prothrombin Time 13.4 sec (12.0-14.7)
[2024-02-24 16:17] LABS: PTT 29.3 sec (22.9-36.1)
[2024-02-24 16:20] LABS: ALT (SGPT) Less than 5 U/L (8-55); AST (SGOT) 11 U/L (5-34); Albumin 3.2 g/dL (3.4-4.8); Alkaline Phosphatase 53 U/L (40-110); Anion Gap 15 mmol/L (10-20); BUN (Urea Nitrogen) 21 mg/dL (9.8-20.1); Bilirubin, Total 0.5 mg/dL (0.2-1.2); Calc. Creatinine Clearance 0 mL/min (70-130); Calcium 8.9 mg/dL (7.8-10.44); Carbon Dioxide 26 mmol/L (23-31); Chloride 100 mmol/L (98-107); Estimated GFR 6; Globulin 4.2 g/dL (2.4-3.5); Glucose 155 mg/dL (80-115); Magnesium 2.6 mg/dL (1.6-2.6); Protein, Total 7.4 g/dL (5.8-8.1); Sodium 136 mmol/L (136-145)
[2024-02-24] MEDS ORDERED: Acetaminophen 650 MG Suppository PR PRN (17:43)
[2024-02-24] MEDS ORDERED: Acetaminophen 325 MG TAB PO PRN (17:43)
[2024-02-24] MEDS ORDERED: Labetalol HCl 100 MG/20 ML VIAL SLOW IVP PRN (17:43)
[2024-02-24] MEDS ORDERED: Senokot S 8.6-50 MG TAB PO PRN (17:43)
[2024-02-24] MEDS ORDERED: Ondansetron ODT 4 MG TAB PO PRN (17:43)
[2024-02-24] MEDS ORDERED: Morphine 2 MG/ML VIAL SLOW IVP PRN (18:24)
[2024-02-24 18:44] LABS: Troponin I 0.025 ng/mL (< 0.028)
[2024-02-24] MEDS ORDERED: Morphine 4 MG/ML VIAL SLOW IVP PRN (19:30)
[2024-02-24] MEDS ORDERED: Aspirin Chewable 81 MG TAB ONE (21:05)
[2024-02-24] MEDS: Atorvastatin Calcium 40 MG TAB PO SCH (23:51)
[2024-02-24] MEDS: Famotidine 20 MG TAB PO SCH (23:51)
[2024-02-24] MEDS: Valproate Sodium 500 MG in Sodium Chloride 0.9% 100 ML IVPB SCH (23:51)
[2024-02-25] MEDS: HYDROcodone/Acetaminophen 5/325 mg Tablet PO PRN (02:05)
[2024-02-25 02:49] VITALS: BMI 23.1
[2024-02-25 05:40] LABS: #Basophils Less than 0.03 10x3/uL (0.0-0.2); #Eosinphils Less than 0.03 10x3/uL (0.0-0.7); %Basophils 0.2 % (0.0-1.0); %Lymphocytes 25.1 % (21.0-51.0); %Monocytes 11.4 % (0.0-10.0); %Neutrophils 63.1 % (42.0-75.0); Hematocrit 34.5 % (36.0-47.0); Hemoglobin 10.5 g/dL (12.0-16.0); Mean Corpuscular HGB CONC 30.4 g/dL (32.0-36.0); Mean Corpuscular Hemoglobin 22.3 pg (27.0-31.0); Mean Corpuscular Volume 73.2 fL (78.0-98.0); Mean Platelet Volume 9.3 fL (7.4-10.4); Platelet Count 238 10x3/uL (130-400); RBC Distribution Width 16.7 % (11.5-14.5); Red Blood Cell (RBC) Count 4.71 mill/uL (4.20-5.40)
[2024-02-25 05:45] LABS: Anion Gap 15 mmol/L (10-20); BUN (Urea Nitrogen) 30 mg/dL (9.8-20.1); Calc. Creatinine Clearance 6 mL/min (70-130); Calcium 8.7 mg/dL (7.8-10.44); Carbon Dioxide 25 mmol/L (23-31); Cardiac Risk 3.5 (Less than 4.5); Chloride 97 mmol/L (98-107); Cholesterol 154 mg/dl (< 200 Desired); Estimated GFR 5; Glucose 219 mg/dL (80-115); HDL Cholesterol 44 mg/dL (>60 Neg Risk); LDL Cholesterol, Calculated 90 mg/dL; Potassium 5.4 mmol/L (3.5-5.1); Sodium 132 mmol/L (136-145); Triglycerides 101 mg/dL (Less than 150)
[2024-02-25 05:59] LABS: Hemoglobin A1c 7.1 % (4.0-6.0)
[2024-02-25] MEDS ORDERED: Heparin 10,000 UNITS/ 10 ML VIAL ONE (08:53)
[2024-02-25] MEDS: Aspirin Chewable 81 MG TAB PO SCH (09:46)
[2024-02-25] MEDS: hydrALAZINE 20 MG/ML VIAL SLOW IVP PRN ×2 (16:18→22:55)
[2024-02-25] MEDS: Metoprolol Tartrate 100 MG TAB PO SCH (18:22)
[2024-02-25] MEDS: HYDROcodone/Acetaminophen 10/325 mg Tablet PO PRN (18:22)
[2024-02-25] MEDS: Ondansetron PF 4 MG/2 ML Vial IVP PRN (18:22)
[2024-02-25] MEDS: hydrALAZINE 25 MG TAB PO SCH (19:57)
[2024-02-25] MEDS: cloNIDine 0.1 MG TAB PO SCH (19:58)
[2024-02-25] MEDS: Icosapent Ethyl 1 GM CAPSULE PO SCH (20:00)
[2024-02-25] MEDS ORDERED: Losartan 25 MG TAB PO SCH (21:00)
[2024-02-25] MEDS: NIFEdipine XL 60 MG ER.TAB PO SCH (23:46)
[2024-02-26 00:53] LABS: Troponin I 0.031 ng/mL (< 0.028)
[2024-02-26 05:00] LABS: Platelet Count 288 10x3/uL (130-400)
[2024-02-26 05:01] LABS: #Basophils Less than 0.03 10x3/uL (0.0-0.2); %Basophils 0.3 % (0.0-1.0); %Eosinophils 1.9 % (0.0-10.0); %Lymphocytes 28.6 % (21.0-51.0); %Monocytes 12.6 % (0.0-10.0); %Neutrophils 56.4 % (42.0-75.0); Hematocrit 39.6 % (36.0-47.0); Hemoglobin 12.2 g/dL (12.0-16.0); Mean Corpuscular HGB CONC 30.8 g/dL (32.0-36.0); Mean Corpuscular Hemoglobin 22.5 pg (27.0-31.0); Mean Corpuscular Volume 72.9 fL (78.0-98.0); Mean Platelet Volume 9.3 fL (7.4-10.4); RBC Distribution Width 17.3 % (11.5-14.5); Red Blood Cell (RBC) Count 5.43 mill/uL (4.20-5.40)
[2024-02-26 05:05] LABS: Anion Gap 23 mmol/L (10-20); BUN (Urea Nitrogen) 17 mg/dL (9.8-20.1); Calc. Creatinine Clearance 9 mL/min (70-130); Calcium 8.9 mg/dL (7.8-10.44); Carbon Dioxide 23 mmol/L (23-31); Chloride 95 mmol/L (98-107); Estimated GFR 8; Glucose 187 mg/dL (80-115); Potassium 4.7 mmol/L (3.5-5.1); Sodium 136 mmol/L (136-145)
[2024-02-26] MEDS: Folic Acid/Vit B Comp W-C PO SCH (09:29)
[2024-02-26] MEDS: Alogliptin 6.25 MG TAB PO SCH (09:29)
[2024-02-26] MEDS: Losartan 25 MG TAB PO SCH (09:29)
[2024-02-26] MEDS: NIFEdipine XL 60 MG ER.TAB PO SCH (09:32)
[2024-02-26 12:09] VITALS: BP 166/73; TEMP 97.5
== END 2024-02-26 13:55 | disposition home or self-care (01) ==
LOC: ERS 11:20 → 2SE 18:11
PROVIDERS: ADMIT Internal Medicine; ATTEND Internal Medicine
DX: R29.90 Unspecified symptoms and signs involving the nervous system (principal); R51.9 Headache, unspecified; I12.0 Hypertensive chronic kidney disease with stage 5 chronic kidney disease or end stage renal disease; D63.1 Anemia in chronic kidney disease; E11.22 Type 2 diabetes mellitus with diabetic chronic kidney disease; E11.65 Type 2 diabetes mellitus with hyperglycemia; Z99.2 Dependence on renal dialysis; I25.2 Old myocardial infarction; K21.9 Gastro-esophageal reflux disease without esophagitis; Z90.710 Acquired absence of both cervix and uterus; Z98.49 Cataract extraction status, unspecified eye; Z98.890 Other specified postprocedural states; Z88.2 Allergy status to sulfonamides; Z88.5 Allergy status to narcotic agent; Z91.048 Other nonmedicinal substance allergy status; Z88.8 Allergy status to other drugs, medicaments and biological substances; Z79.899 Other long term (current) drug therapy; Z79.82 Long term (current) use of aspirin
CPT/HCPCS: 70450; 70551; 71045; 80048 ×2; 80053; 80061; 82962; 83036; 83735; 84443; 84484 ×2; 85025 ×3; 85610; 85730; 86141; 93005; 93880; 96365; 96375 ×2; 96376; 97535; 99285; G0378 ×4; J0360; J0780; J1200; J1644; J2405; J2930; J3475; J3490; 36415; 36416